=== PATIENT | male | born 1950 | race Caucasian/White ===

== ENCOUNTER → 2020-03-06 11:39 | Outpatient (BNVA) | payer MEDICARE, SELFPAY | PROVIDERS: PCP Nurse Practitioner Family; Referring Provider Nurse Practitioner Family; Visit Provider Internal Medicine | DX: E83.52 Hypercalcemia (principal); E03.9 Hypothyroidism, unspecified; I25.10 Atherosclerotic heart disease of native coronary artery without angina pectoris; I10 Essential (primary) hypertension; I48.0 Paroxysmal atrial fibrillation; I25.5 Ischemic cardiomyopathy; R91.1 Solitary pulmonary nodule; Z88.0 Allergy status to penicillin; Z79.899 Other long term (current) drug therapy | CPT/HCPCS: 99212 ==

== ENCOUNTER → 2020-03-14 08:50 | Outpatient (BNVA) | payer MEDICARE, SELFPAY | PROVIDERS: PCP Nurse Practitioner Family; Referring Provider Nurse Practitioner Family; Visit Provider Nurse Practitioner Family | DX: G47.33 Obstructive sleep apnea (adult) (pediatric) (principal); Z99.89 Dependence on other enabling machines and devices | CPT/HCPCS: 99212 ==

== ENCOUNTER 2020-04-13 13:30 | Outpatient (RCR) | payer MEDICARE, SELFPAY | END 2020-06-20 07:47 | disposition home or self-care (01) | LOC: HO.OT 13:30 | PROVIDERS: PCP Nurse Practitioner Family; Visit Provider Nurse Practitioner Family | DX: G56.02 Carpal tunnel syndrome, left upper limb (principal) | CPT/HCPCS: 29125; 97033; 97035; 97110; 97140; 97165; 97760 ==

== ENCOUNTER → 2020-05-08 08:46 | Outpatient (BNVA) | payer MEDICARE, SELFPAY | PROVIDERS: PCP Nurse Practitioner Family; Referring Provider Nurse Practitioner Family; Visit Provider Internal Medicine | DX: Z13.89 Encounter for screening for other disorder (principal) | CPT/HCPCS: Q3014 ==

== ENCOUNTER 2020-05-09 14:11 | Outpatient (REF) | payer MEDICARE, SELFPAY ==
[2020-05-09 16:45] LABS: Albumin Level 4.4 g/dL (3.5-5.0); Calcium 9.7 mg/dL (8.4-10.2)
[2020-05-09 17:15] LABS: Free T4 (Free Thyroxine) 1.12 ng/dL (0.71-1.85); Thyroid Stimulating Hormone 0.98 uIU/mL (0.32-4.0); Vitamin D 25-OH Total 27.4 ng/mL (>30)
[2020-05-10 17:28] LABS: PTHI 58 pg/mL (14-64)
== END 2020-05-09 14:12 | disposition home or self-care (01) ==
LOC: HO.HMGCLDS 14:11
PROVIDERS: PCP Nurse Practitioner Family; Visit Provider Internal Medicine
DX: E83.52 Hypercalcemia (principal); E03.9 Hypothyroidism, unspecified; E55.9 Vitamin D deficiency, unspecified
CPT/HCPCS: 36415; 82040; 82306; 82310; 83970; 84439; 84443

== ENCOUNTER → 2020-06-20 10:27 | Outpatient (BNVA) | payer MEDICARE, SELFPAY | PROVIDERS: PCP Nurse Practitioner Family; Visit Provider Nurse Practitioner Family | DX: Z13.89 Encounter for screening for other disorder (principal) | CPT/HCPCS: Q3014 ==

== ENCOUNTER → 2020-06-21 09:06 | Outpatient (BNVA) | payer MEDICARE, SELFPAY | PROVIDERS: PCP Nurse Practitioner Family; Visit Provider Internal Medicine | DX: Z76.89 Persons encountering health services in other specified circumstances (principal) | CPT/HCPCS: Q3014 ==

== ENCOUNTER 2020-08-15 16:06 | Outpatient (REF) | payer MEDICARE, SELFPAY ==
--- NOTE | ~2020-08-15 | US_ITS ---
EXAMINATION: US VENOUS ULTRASOUND WITH DOPPLER LOWER EXTREMITY, RIGHT CLINICAL INFORMATION: Pain. COMPARISON: None TECHNIQUE: Ultrasound of the deep veins is performed from the hip to the calf with compression sonography and color and pulse Doppler assessment. Spectral analysis with color-flow imaging is performed. FINDINGS: There is normal venous compression and respiratory variation and augmented flow. The visualized common femoral vein, superficial femoral vein, profunda femoral vein, popliteal vein, and the trifurcation region shows no evidence of deep venous thrombosis. There is no significant popliteal fossa cyst. If the patient's symptoms persist, followup ultrasound in 5 days 7 days might be of value to exclude proximal propagation from a non-visualized calf vein. US/US venous duplex LE RT IMPRESSION: No DVT demonstrated in the right lower extremity.
== END 2020-08-15 16:07 | disposition home or self-care (01) ==
LOC: HO.US 16:06
PROVIDERS: PCP Nurse Practitioner Family; Visit Provider Nurse Practitioner Family
DX: M79.661 Pain in right lower leg (principal)
CPT/HCPCS: 93971

== ENCOUNTER → 2020-09-18 09:27 | Outpatient (BNVA) | payer MEDICARE, SELFPAY | PROVIDERS: PCP Nurse Practitioner Family; Visit Provider Internal Medicine | DX: Z13.89 Encounter for screening for other disorder (principal) | CPT/HCPCS: Q3014 ==

== ENCOUNTER → 2020-09-19 09:46 | Outpatient (BNVA) | payer MEDICARE, SELFPAY | PROVIDERS: PCP Nurse Practitioner Family; Visit Provider Nurse Practitioner Family | CPT/HCPCS: Q3014 ==

== ENCOUNTER 2020-09-23 10:26 | Outpatient (REF) | payer MEDICARE, SELFPAY ==
[2020-09-23 12:11] LABS: Free T4 (Free Thyroxine) 1.15 ng/dL (0.71-1.85); Thyroid Stimulating Hormone 0.37 uIU/mL (0.32-4.0); Vitamin D 25-OH Total 28.3 ng/mL (>30)
== END 2020-09-23 10:27 | disposition home or self-care (01) ==
LOC: HO.HMGCLDS 10:26
PROVIDERS: PCP Nurse Practitioner Family; Visit Provider Internal Medicine
DX: E03.9 Hypothyroidism, unspecified (principal); E55.9 Vitamin D deficiency, unspecified
CPT/HCPCS: 36415; 82306; 84439; 84443

== ENCOUNTER → 2020-11-15 08:03 | Outpatient (BNVA) | payer MEDICARE, SELFPAY | PROVIDERS: PCP Nurse Practitioner Family; Visit Provider Internal Medicine | CPT/HCPCS: Q3014 ==

== ENCOUNTER 2020-11-22 14:06 | Outpatient (REF) | payer MEDICARE, SELFPAY ==
[2020-11-22 16:41] LABS: Alanine Aminotransferase 21 U/L (0-40); Albumin Level 4.4 g/dL (3.5-5.0); Alkaline Phosphatase 95 U/L (39-117); Anion Gap 12 (12-20); Aspartate Amino Transferase 17 U/L (5-37); Bilirubin Total 0.8 mg/dL (0.0-1.0); Blood Urea Nitrogen 15 mg/dL (9-16); Calcium 9.5 mg/dL (8.4-10.2); Carbon Dioxide 23 mmol/L (22-29); Chloride 109 mmol/L (96-108); Estimated Glomerular Filt Rate > 60; Glucose Random 89 mg/dL (60-115); Potassium 4.1 mmol/L (3.3-5.1); Sodium 140 mmol/L (135-145)
[2020-11-22 17:01] LABS: Free T4 (Free Thyroxine) 1.04 ng/dL (0.71-1.85); Thyroid Stimulating Hormone 2.59 uIU/mL (0.32-4.0)
[2020-11-22 17:02] LABS: TSH reflex Free T4 2.55 uIU/mL (0.32-4.0)
[2020-11-22 17:33] LABS: Prostate Specific Antigen Scr 0.84 ng/mL (<0.05-4.0)
== END 2020-11-22 14:07 | disposition home or self-care (01) ==
LOC: HO.HMGCLDS 14:06
PROVIDERS: Internal Medicine; PCP Nurse Practitioner Family; Visit Provider Nurse Practitioner Family
DX: Z12.5 Encounter for screening for malignant neoplasm of prostate (principal); E03.9 Hypothyroidism, unspecified; E78.00 Pure hypercholesterolemia, unspecified; I10 Essential (primary) hypertension
CPT/HCPCS: 36415; 80053; 84153; 84439; 84443

== ENCOUNTER → 2020-12-12 09:55 | Outpatient (BNVA) | payer MEDICARE, SELFPAY | PROVIDERS: PCP Nurse Practitioner Family; Visit Provider Nurse Practitioner Family | CPT/HCPCS: Q3014 ==

== ENCOUNTER 2020-12-14 13:47 | Outpatient (REF) | payer MEDICARE, SELFPAY ==
--- NOTE | ~2020-12-14 | MM_ITS ---
EXAMINATION: BONE DENSITOMETRY CLINICAL INDICATION: Hyperparathyroidism. COMPARISON: This is the patient's baseline examination. TECHNIQUE: Using a Neb[employer] DXA System (software version: 13.1) manufactured by [employer], dual-energy x-ray absorptiometry was performed of the lumbar spine, left hip, and left forearm radius 33%. The images are of good technical quality. Summary results are attached. FINDINGS: AP SPINE L1-L4: BMD 1.225 g/cm2, Z-score -0.1, T-score 0.0, normal. LEFT FEMUR, NECK: BMD 0.757 g/cm2, Z-score -1.6, T-score -2.4, osteopenia. LEFT FEMUR, TOTAL: BMD 0.842 g/cm2, Z-score -1.5, T-score -1.8, osteopenia. LEFT FOREARM RADIUS 33%: BMD 0.810 g/cm2, Z-score -0.9, T-score -1.8, osteopenia. IDENTIFIED RISK FACTORS: Hyperparathyroid. HISTORY OF FRACTURE: None listed. MEDICATIONS: Calcium, vitamin D. MM/XR DEXA appendicular skeleton IMPRESSION: 1. DIAGNOSIS: Osteopenia based on the lowest T-score value of -2.4 in the femoral neck applying World Health Organization criteria. 2. 10-YEAR FRACTURE RISK PREDICTION, FRAX: Major osteoporotic fracture (clinical spine, forearm, hip or shoulder) 8.6%. Hip fracture 2.9%. 3. Treatment Recommendations: NOF guidelines recommend consideration for treatment in postmenopausal women and men age 50 and older presenting with the following: -A hip or vertebral (clinical or morphometric) fracture. -T-score less than or equal to -2.5 at the femoral neck or spine after appropriate evaluation to exclude secondary causes. -Low bone mass at the hip or spine and a 10-year fracture probability by FRAX of greater than or equal to 3% for hip fracture or greater than or equal to 20% for major osteoporotic fracture based on the [place] adapted WHO algorithm. 4. Other Recommendations: All treatment decisions require clinical judgment and consideration of individual patient factors, including patient preferences, comorbidities, previous drug use, risk factors not captured in the FRAX model (e.g. frailty, falls, vitamin D deficiency, increased bone turnover, interval significant decline in bone density) and possible under or overestimation of fracture risk by FRAX. Additional medical evaluation for secondary cause of low bone mineral density may be appropriate. FUTURE SCAN RECOMMENDATION: People with diagnosed cases of osteoporosis or at high risk for fracture should have regular bone mineral density tests. For patients eligible for Medicare, routine testing is allowed once every 2 years. The testing frequency can be increased to one year for patients who have rapidly progressing disease, those who are receiving or discontinuing medical therapy to restore bone mass, or have additional risk factors.
== END 2020-12-14 13:48 | disposition home or self-care (01) ==
LOC: HO.MAMMO 13:47
PROVIDERS: Visit Provider Internal Medicine
DX: Z13.820 Encounter for screening for osteoporosis (principal); E21.3 Hyperparathyroidism, unspecified
CPT/HCPCS: 77081

== ENCOUNTER 2020-12-26 13:54 | Outpatient (REF) | payer MEDICARE, SELFPAY ==
--- NOTE | ~2020-12-26 | US_ITS ---
EXAMINATION: US THYROID CLINICAL INFORMATION: Hyperparathyroidism, unspecified. COMPARISON: None TECHNIQUE: Linear transducer grayscale and color Doppler examination with attention to the region of the thyroid. FINDINGS: SIZE: Measurements of the thyroid lobes and nodules are given in sagittal, anteroposterior and transverse dimensions respectively. The thyroid gland is difficult to visualize. Right Thyroid Lobe: 3.8 x 1.0 x 1.1 cm, volume 2.2 mL. Parenchyma: The gland echotexture is homogeneous. Thyroid vascularity is normal. Left Thyroid Lobe: 3.3 x 0.9 x 1.0 cm, volume 1.6 mL. Parenchyma: The gland echotexture is homogeneous. Thyroid vascularity is normal. Isthmus: 0.2 cm in maximum AP dimension. No focal thyroid nodule is seen. NODES: No lymphadenopathy is seen in the tissue surrounding the thyroid gland. US/US thyroid IMPRESSION: The thyroid gland is difficult to visualize. No focal lesion seen. ACR TI-RADS RECOMMENDATION REFERENCE: Ultrasound-guided fine-needle aspiration, followup ultrasound, no further follow up. * TR1 (0 point) and TR 2 (2 points): No FNA or follow up * TR3 (3 points): FNA if more than or equal to 2.5 cm in maximum dimension, followup ultrasound in 1, 3 and 5 years if 1.5 to 2.4 cm in maximum dimension. * TR4 (4-6 points): FNA if more than or equal to 1.5 cm in maximum dimension, followup ultrasound in 1, 2, 3 and 5 years if 1 to 1.4 cm in maximum dimension. * TR5 (more than or equal to 7 points): FNA if more than or equal to 1 cm in maximum dimension, followup ultrasound every year for 5 years if 0.5 to 0.9 cm in maximum dimension. * TR3, TR4 or TR5 nodules that are below the size threshold for follow up receive no follow up.
== END 2020-12-26 13:55 | disposition home or self-care (01) ==
LOC: HO.HMGCX 13:54
PROVIDERS: PCP Nurse Practitioner Family; Visit Provider Internal Medicine
DX: E21.3 Hyperparathyroidism, unspecified (principal)
CPT/HCPCS: 76536

== ENCOUNTER 2021-03-12 08:49 | Outpatient (REF) | payer MEDICARE, SELFPAY ==
--- NOTE | ~2021-03-12 | XR_ITS ---
EXAMINATION: XR KNEE-RIGHT XR KNEE-LEFT CLINICAL INFORMATION: Pain in unspecified knee. COMPARISON: Right knee done on 06/16/2017. TECHNIQUE: Upright frontal view of both knees and lateral and patellofemoral views of the right knee were obtained. FINDINGS: Left knee: The single frontal upright view shows minimal decrease joint space and minimal subchondral sclerosis, consistent with mild lateral and medial compartmental osteoarthrosis. Right knee: Decreased joint space, subchondral sclerosis, mild osteophyte formations, consistent with mild to moderate medial compartmental and mild lateral compartmental and mild patellofemoral compartmental osteoarthrosis is seen. When compared to prior study dated 06/16/2017, mild interval disease progression is noted. XR/XR knee standing BI IMPRESSION: 1. Single frontal upright view of the left knee shows features consistent with mild both medial and lateral compartmental osteoarthrosis. 2. Multiple views of the right knee shows [id number] medial compartmental and mild lateral and patellofemoral compartmental osteoarthrosis, shows mild interval disease progression since 06/16/2017.
--- NOTE | ~2021-03-12 | XR_ITS ---
EXAMINATION: XR KNEE-RIGHT XR KNEE-LEFT CLINICAL INFORMATION: Pain in unspecified knee. COMPARISON: Right knee done on 06/16/2017. TECHNIQUE: Upright frontal view of both knees and lateral and patellofemoral views of the right knee were obtained. FINDINGS: Left knee: The single frontal upright view shows minimal decrease joint space and minimal subchondral sclerosis, consistent with mild lateral and medial compartmental osteoarthrosis. Right knee: Decreased joint space, subchondral sclerosis, mild osteophyte formations, consistent with mild to moderate medial compartmental and mild lateral compartmental and mild patellofemoral compartmental osteoarthrosis is seen. When compared to prior study dated 06/16/2017, mild interval disease progression is noted. XR/XR knee RT 2V IMPRESSION: 1. Single frontal upright view of the left knee shows features consistent with mild both medial and lateral compartmental osteoarthrosis. 2. Multiple views of the right knee shows [id number] medial compartmental and mild lateral and patellofemoral compartmental osteoarthrosis, shows mild interval disease progression since 06/16/2017.
== END 2021-03-12 08:50 | disposition home or self-care (01) ==
LOC: HO.HOSX 08:49
PROVIDERS: Visit Provider Orthopaedic Surgery
DX: M17.11 Unilateral primary osteoarthritis, right knee (principal)
CPT/HCPCS: 73560; 73565; 99202

== ENCOUNTER 2021-05-29 11:16 | Outpatient (REF) | payer MEDICARE, SELFPAY ==
[2021-05-29 13:49] LABS: MANUAL DIFF FLAG NO
[2021-05-29 13:55] LABS: Basophils Absolute Auto 0.1 X10*3/uL (0.0-0.2); Basophils Percent Auto 0.9 % (0-2); Eosinophils Absolute Auto 0.3 X10*3/uL (0.0-0.4); Eosinophils Percent Auto 2.8 % (0-4); Hemoglobin 13.3 g/dl (14.0-18.0); Imm Gran Abs Auto 0.05 X10*3/uL (0.00-0.03); Imm Gran Pct Auto 0.5 % (0.0-0.4); Lymphocytes Absolute Auto 1.5 X10*3/uL (1.2-4.9); Lymphocytes Percent Auto 14.5 % (20-40); Mean Corpuscular HGB Conc 31.7 g/dl (31.0-36.0); Mean Corpuscular Hemoglobin 29.6 pg (27.0-33.0); Mean Corpuscular Volume 93.5 fL (80.0-98.0); Mean Platelet Volume 10.1 fL (9.4-12.4); Monocytes Absolute Auto 0.8 X10*3/uL (0.1-1.2); Monocytes Percent Auto 7.3 % (2-11); Neutrophils Absolute Auto 7.8 x10*3/uL (2.0-8.3); Platelet Count 390 X10*3/uL (160-400); Red Blood Count 4.49 X10*6/uL (4.60-5.80); Red Cell Distribution Width 14.9 % (11.0-16.0); White Blood Count 10.5 X10*3/uL (4.8-10.8)
[2021-05-29 14:15] LABS: Alanine Aminotransferase 19 U/L (0-40); Albumin Level 3.7 g/dL (3.5-5.0); Alkaline Phosphatase 88 U/L (39-117); Anion Gap 12 (12-20); Aspartate Amino Transferase 22 U/L (5-37); Bilirubin Total 0.5 mg/dL (0.0-1.0); Blood Urea Nitrogen 10 mg/dL (9-16); Calcium 9.4 mg/dL (8.4-10.2); Carbon Dioxide 28 mmol/L (22-29); Chloride 106 mmol/L (96-108); Estimated Glomerular Filt Rate > 60; Glucose Fasting 93 mg/dL (60-99); Magnesium 2.2 mg/dL (1.6-2.6); Phosphorus 3.8 mg/dL (2.7-4.5); Potassium 4.8 mmol/L (3.3-5.1); Sodium 141 mmol/L (135-145); Total Protein 6.3 g/dL (6.5-8.0)
[2021-05-29 14:26] LABS: Thyroid Stimulating Hormone 21.86 uIU/mL (0.32-4.0)
[2021-05-29 14:31] LABS: Vitamin D 25-OH Total 31.2 ng/mL (>30)
[2021-05-30 12:27] LABS: Calcium (PTHI) 8.9 mg/dL (8.6-10.3); PTHI 83 pg/mL (14-64)
== END 2021-05-29 11:17 | disposition home or self-care (01) ==
LOC: HO.HMGCLDS 11:16
PROVIDERS: Internal Medicine; PCP Nurse Practitioner Family; Visit Provider Nurse Practitioner Family
DX: I46.9 Cardiac arrest, cause unspecified (principal); U07.1 COVID-19; I47.2 Ventricular tachycardia; E03.9 Hypothyroidism, unspecified; E21.3 Hyperparathyroidism, unspecified; E55.9 Vitamin D deficiency, unspecified
CPT/HCPCS: 36415; 80053; 82306; 83735; 83970; 84100; 84439; 84443; 85025

== ENCOUNTER → 2021-06-13 08:45 | Outpatient (BNVA) | payer MEDICARE, SELFPAY | PROVIDERS: PCP Nurse Practitioner Family; Visit Provider Internal Medicine | DX: Z13.89 Encounter for screening for other disorder (principal) | CPT/HCPCS: Q3014 ==

== ENCOUNTER → 2021-06-20 11:02 | Outpatient (BNVA) | payer MEDICARE, SELFPAY | PROVIDERS: PCP Nurse Practitioner Family; Visit Provider Orthopaedic Surgery | DX: Z13.89 Encounter for screening for other disorder (principal) ==

== ENCOUNTER 2021-07-05 10:27 | Outpatient (REF) | payer MEDICARE, SELFPAY ==
[2021-07-05 13:42] LABS: MANUAL DIFF FLAG NO
[2021-07-05 13:45] LABS: Basophils Absolute Auto 0.1 X10*3/uL (0.0-0.2); Basophils Percent Auto 0.9 % (0-2); Eosinophils Absolute Auto 0.3 X10*3/uL (0.0-0.4); Eosinophils Percent Auto 3.7 % (0-4); Hematocrit 52.7 % (42.0-52.0); Imm Gran Abs Auto 0.01 X10*3/uL (0.00-0.03); Imm Gran Pct Auto 0.1 % (0.0-0.4); Lymphocytes Absolute Auto 1.7 X10*3/uL (1.2-4.9); Lymphocytes Percent Auto 24.3 % (20-40); Mean Corpuscular HGB Conc 32.3 g/dl (31.0-36.0); Mean Corpuscular Hemoglobin 29.6 pg (27.0-33.0); Mean Corpuscular Volume 91.8 fL (80.0-98.0); Monocytes Absolute Auto 0.5 X10*3/uL (0.1-1.2); Monocytes Percent Auto 7.6 % (2-11); Neutrophils Absolute Auto 4.3 x10*3/uL (2.0-8.3); Neutrophils Percent Auto 63.4 % (45-73); Platelet Count 247 X10*3/uL (160-400); Red Blood Count 5.74 X10*6/uL (4.60-5.80); Red Cell Distribution Width 15.5 % (11.0-16.0); White Blood Count 6.8 X10*3/uL (4.8-10.8)
[2021-07-05 14:04] LABS: Alanine Aminotransferase 31 U/L (0-40); Albumin Level 4.8 g/dL (3.5-5.0); Alkaline Phosphatase 133 U/L (39-117); Anion Gap 12 (12-20); Aspartate Amino Transferase 24 U/L (5-37); Bilirubin Total 1.1 mg/dL (0.0-1.0); Blood Urea Nitrogen 13 mg/dL (9-16); Calcium 10.5 mg/dL (8.4-10.2); Carbon Dioxide 28 mmol/L (22-29); Chloride 104 mmol/L (96-108); Estimated Glomerular Filt Rate > 60; Glucose Random 114 mg/dL (60-115); Phosphorus 3.6 mg/dL (2.7-4.5); Potassium 4.4 mmol/L (3.3-5.1); Sodium 140 mmol/L (135-145); Total Protein 7.7 g/dL (6.5-8.0)
[2021-07-05 14:20] LABS: Free T4 (Free Thyroxine) 0.96 ng/dL (0.71-1.85); Prostate Specific Antigen 0.57 ng/mL (<0.05-4.0)
[2021-07-05 14:21] LABS: Thyroid Stimulating Hormone 15.87 uIU/mL (0.32-4.0)
[2021-07-06 05:56] LABS: Sex Hormone Binding Globulin 49 nmol/L (22-77)
[2021-07-06 09:02] LABS: Prolactin 12.1 ng/mL (2.0-18.0)
[2021-07-09 14:36] LABS: Prot Elec - Albumin 4.8 g/dL (3.8-4.8); Prot Elec - Alpha1 0.3 g/dL (0.2-0.3); Prot Elec - Alpha2 1.2 g/dL (0.5-0.9); Prot Elec - Beta 1 0.5 g/dL (0.4-0.6); Prot Elec - Beta 2 0.4 g/dL (0.2-0.5); Prot Elec - Gamma 0.9 g/dL (0.8-1.7)
[2021-07-10 14:41] LABS: Alkaline Phosphatase Bone 29.9 mcg/L (see note); Calcium (PTHI) 10.5 mg/dL (8.6-10.3); PTHI 112 pg/mL (14-64); Testosterone, Free 35.6 pg/mL (30.0-135.0); Testosterone, Total 363 ng/dL (250-1100)
== END 2021-07-05 10:28 | disposition home or self-care (01) ==
LOC: HO.HMGCLDS 10:27
PROVIDERS: Absent Provider Internal Medicine; PCP Nurse Practitioner Family; Visit Provider Orthopaedic Surgery
DX: Z01.812 Encounter for preprocedural laboratory examination (principal); Z12.5 Encounter for screening for malignant neoplasm of prostate; E21.3 Hyperparathyroidism, unspecified; E03.9 Hypothyroidism, unspecified; M85.80 Other specified disorders of bone density and structure, unspecified site
CPT/HCPCS: 36415; 80053; 83970; 84075; 84100; 84146; 84153; 84165; 84270; 84402; 84403; 84439; 84443; 85025

== ENCOUNTER 2021-07-10 11:31 | Outpatient (REF) | payer MEDICARE, SELFPAY ==
[2021-07-10 14:12] LABS: Total Volume 24 Hour Urine 1825 mL
[2021-07-10 14:40] LABS: Creatinine, mg/dL 53.59
[2021-07-11 22:43] LABS: Calcium, 24 Hr Urine 68 mg/24 h; Calcium/Creatinine Ratio 67 mg/g creat (30-210)
[2021-07-14 11:45] LABS: N-Telopeptide 46 (see note); NTXCreaRU 42 mg/dL (20-320)
== END 2021-07-10 11:32 | disposition home or self-care (01) ==
LOC: HO.HMGCLNP 11:31
PROVIDERS: Internal Medicine; PCP Nurse Practitioner Family; Visit Provider Nurse Practitioner Family
DX: E21.3 Hyperparathyroidism, unspecified (principal)
CPT/HCPCS: 82340; 82523; 82570

== ENCOUNTER → 2021-07-16 11:12 | Outpatient (BNVA) | payer MEDICARE, SELFPAY | PROVIDERS: PCP Nurse Practitioner Family; Visit Provider Physician Assistant | DX: Z01.818 Encounter for other preprocedural examination (principal); M17.11 Unilateral primary osteoarthritis, right knee | CPT/HCPCS: 99212 ==

== ENCOUNTER 2021-07-19 10:00 | Outpatient (RCR) | payer MEDICARE, SELFPAY ==
--- NOTE | 2021-07-13 12:47 | MHC.PT.EP ---
[facility] [place] Office [place] Office [place] Office [address] Mavis Shipman [address] [phone] F: [phone] F: [phone] F: [phone] F: [phone] Physical Therapy Plan of Care Date of Evaluation: Date of Surgery: Diagnosis: This is a 71 yo male presenting to skilled PT with a script for prehab for R TKA 07/24/21 Assessment: Patient comes to PT reporting that he would like to exercise prior to surgery. He has been through his pre-op appointments and is looking for education on process. He has failed conservative methods, states that he had PT prior to scheduling this surgery. The patient reports pain is constant, located anteriorly throughout patella area. Pain is with all motions and does not improve with rest. 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 He lives with his in a ranch style home with 3 [address]IL[address] and single rail on the R when entering. He has grab bars in his bathroom and is is able to help him as needed s/p surgery. He has a walker and cane at home. Assessment reveals pain that ranges up to a 6/10 and is constant in nature. He demos decreased ROM, decreased strength, impaired gait pattern and joint mobility that is expected prior to TKA. He is a good candidate for skilled PT 2x/wk for 1wks. Frequency and Duration: The patient will be seen 2x/wk for 1wk Short Term Goals: Group Home Goals: I in HEP Understand transfers Understand negotiation of stairs Treatment Plan: Modalities to reduce pain, spasms and effusion. Manual therapy to restore motion and function. Therapeutic exercise to improve strength and flexibility. Neuromuscular re-education for posture and balance. Therapeutic activities to return to functional activities of daily living. Electronically signed by: Geno Colorado Please sign and return to therapist. Thank you for your referral.
--- NOTE | 2021-07-19 12:23 | MHC.PT.DC ---
[facility] [place] Office [place] Office [place] Office [address] Mavis Shipman [address] [phone] F: [phone] F: [phone] F: [phone] F: [phone] Physical Therapy Discharge Report Diagnosis: This is a 71 yo male presenting to skilled PT with a script for prehab for R TKA 07/24/21 Date of Surgery: Date of Evaluation: 07/13/21 Date of Discharge: 07/19/21 Treatments to Date: 2 Cancellations to Date: 0 No Shows to Date: 0 Discharge Status: Achieved Goals Independent with HEP Patient Elected to Stop Discharge Summary: 07/19: Patient missed the last appointment as he was not feeling well. His surgery is planned for 07/24 so we really only had time to review his HEP, re-educate on transfers, ambulation with walker and stairs. DC to HEP and will re-eval when he returns s/p surgery. Electronically signed by: Geno Colorado, PT Please sign and return to therapist. Thank you for your referral.
== END 2021-07-19 12:24 | disposition home or self-care (01) ==
LOC: HO.PTCHIC 10:00
PROVIDERS: PCP Nurse Practitioner Family; Visit Provider Nurse Practitioner Family
DX: M17.11 Unilateral primary osteoarthritis, right knee (principal)
CPT/HCPCS: 97110; 97161; 97530

== ENCOUNTER 2021-07-24 05:56 | Day surgery (SDC) | payer MEDICARE, SELFPAY ==
[2021-07-12 12:19] VITALS: BP 97/67; PULSE 84; RESP 16; O2SAT 96; BMI 31.0
[2021-07-12 14:49] LABS: MRSA Nasal PCR POSITIVE (Negative); SA Nasal PCR POSITIVE (Negative)
--- NOTE | 2021-07-20 14:24 | HO.ANESPROP2 ---
Documented by User: Melva Dash NP 07/20/21 14:42 HPI - Anesthesia Eval Consult details Narrative: 71yo M for Right Knee Replacement Total PCP cleared Cardiac cleared Pt with cardiac arrest in setting of COVID 05/2021. ICD (for ischemic CMP) in situ required generator change 05/[address] Lemus in PAT clinic Plavix and Eliquis PMFSH Active Problems Active Problems: All Active Problems (Updated 07/12/21 @ 15:32 by Abimbola Pink, RN) Severe obstructive sleep apnea (Acute) High cholesterol (Acute) GERD (gastroesophageal reflux disease) (Acute) Shoulder pain (Acute) Calf pain (Acute) Screening PSA (prostate specific antigen) (Acute) Arthritis of right knee (Acute) Torsades de pointes (Acute) Cardiac arrest (Acute) COVID-19 (Acute) Pre-op evaluation (Acute) Osteopenia (Acute) Hyperparathyroidism (Acute) Hypothyroidism (Acute) Familial hypocalciuric hypercalcemia (Acute) Vitamin D deficiency (Acute) HTN (hypertension) (Acute) Carpal tunnel syndrome of left wrist (Acute) Past Medical History Medical History (Updated 07/12/21 @ 15:32 by Abimbola Pink RN) CAD (coronary artery disease) Carpal tunnel syndrome of left wrist Depression Familial hypocalciuric hypercalcemia History of blood transfusion HTN (hypertension) Hyperparathyroidism Hypothyroidism Ischemic cardiomyopathy Left carpal tunnel syndrome FÉLIX (obstructive sleep apnea) Osteopenia Paroxysmal atrial fibrillation PTSD (post-traumatic stress disorder) Pulmonary nodule Vitamin D deficiency Family History Family History Father CAD (coronary artery disease) Mother CVA (cerebral vascular accident) Surgical History Surgical History (Updated 07/12/21 @ 15:41 by Abimbola iPnk RN) AICD (automatic cardioverter/defibrillator) present History of AAA (abdominal aortic aneurysm) repair Hx of appendectomy Hx of colonoscopy Hx of discectomy Hx of tonsillectomy S/P CABG x 6 Social History Social History (Updated 07/12/21 @ 15:43 by Abimbola Pink, LOAN) Are you a primary healthcare consultant to a significant other at home: No Do you presently have visiting nurse or other home services: No Alcohol intake: never Patient Tobacco Use Status: Former Tobacco user Quit Date: Tobacco use type: Cigarette Use of substances other than those prescribed or required for medical reasons: No Have you been hit, kicked, punched, or otherwise hurt by someone within the past year? If so, by whom?: No Are you DNR?: No Advance Directives: No Advance Directives Information Provided: Yes Advance Directives on File: No Recently lost weight without trying: No Nutrition Risks: No Nutritional Risk Poor oral hygiene: No Current occupational status: retired Meds Allergies Allergy/AdvReac Type Severity Reaction Status Date / Time Penicillins [PENICILLINS] Allergy Intermediate ITCHY RASH Verified 07/16/21 11:18 Home Medications Medication Instructions Recorded Confirmed Last Taken Type clopidogrel 75 mg tablet 75 mg PO DAILY 02/07/20 07/16/21 07/20/21 History amiodarone 200 mg tablet 200 mg PO DAILY 05/29/21 07/16/21 Unknown History ascorbate calcium (vitamin C) 500 500 mg PO DAILY 07/04/21 07/16/21 Unknown History mg tablet ezetimibe 10 mg tablet 10 mg PO BEDTIME 07/12/21 07/16/21 Unknown History sacubitril 97 mg-valsartan 103 mg 1 tab PO BID 07/12/21 07/16/21 07/24/21 History tablet (Entresto) spironolactone 25 mg tablet 12.5 mg PO DAILY 07/12/21 07/16/21 Unknown History trazodone 50 mg tablet 50 mg PO BEDTIME PRN 07/12/21 07/16/21 Unknown History vit C 250 mg-vit E 90 mg-zinc 40 1 tab PO BID 07/12/21 07/16/21 Unknown History mg-copper 1 [id number] capsule (PreserVision AREDS-2) sacubitril 97 mg-valsartan 103 mg 1 tab PO BID 07/24/21 07/24/21 Unknown History tablet (Entresto) Exam Exam Date and Time: July 20, 2021 1424 Height,Weight and Vital Signs: Height 6 ft Weight 103.9 kg Last Vital Signs Pulse 84 07/12/21 12:19 Resp 16 07/12/21 12:19 BP 97/67 07/12/21 12:19 Pulse Ox 96 07/12/21 12:19 Pertinent Lab Results Pertinent Lab Results: Laboratory Tests 07/12/21 07/12/21 12:30 13:10 Nasal Screen MRSA (PCR) POSITIVE A Nasal S. aureus Screen POSITIVE A Nasal MRSA/S.aureus Interp SEE NOTE Blood Type O Positive Antibody Screen NEGATIVE Laboratory Tests 07/05/21 07/05/21 10:39 10:39 WBC 6.8 Hgb 17.0 D Hct 52.7 H D Plt Count 247 D Sodium 140 Potassium 4.4 Chloride 104 Carbon Dioxide 28 BUN 13 Creatinine 1.00 Narrative Narrative: EKG 06/2021 SB @ 57, RBBB ECHO 05/2021 LV is normal in size. LV wall thickness is mildly increased. LV systolic function severely reduced - LVEF 25-30%. Basal to mid inferolateral anterolateral wall is akinetic. Basal inferior wall is dyskinetic. No doppler evidence of increased filling pressures. RV is normal in size. RV mildly reduced. Pacer/ICD wire seen in RV c/w 2017, global LV function is mildly decreased Cardiac Cath 05/2021 Likely unchanged anatomy c/w 2016 Pt known to have occluded left main and proximal RCA SV3 to RCA and SVG to OM are known to be occluded HARTLEY to LAD is patent. HARTLEY is tortuous and there is diffuse LAD disease Branch of proximal RCA is collateralizing to distal LCx Aggressive secondary risk factor modification Continue medical therapy for CAD EP consult ICD testing from generator change 05/2021 on chart. Assessment and Plan Assessment Anesthesia Assessment: Chart Reviewed Documented by User: Lars Khalil MD 07/24/21 08:55 HPI - Anesthesia Eval Consult details Narrative: 71yo M for Right Knee Replacement Total PCP cleared Cardiac cleared Pt with cardiac arrest in setting of COVID 05/2021. Hypokalemic VT/VF/torsades. ICD (for ischemic CMP) in situ required generator change 05/2021. 6V CABG at age 43. Last nitro use for stable angina 2.5 years ago. EF 25%, no valve lesions. Pt seen by Dr Lemus in PAT clinic Plavix last dose 5 days and Eliquis 3 days ago [facility] Past Medical History Medical History (Updated 07/12/21 @ 15:32 by Abimbola Pink RN) CAD (coronary artery disease) Carpal tunnel syndrome of left wrist Depression Familial hypocalciuric hypercalcemia History of blood transfusion HTN (hypertension) Hyperparathyroidism Hypothyroidism Ischemic cardiomyopathy Left carpal tunnel syndrome FÉLIX (obstructive sleep apnea) Osteopenia Paroxysmal atrial fibrillation PTSD (post-traumatic stress disorder) Pulmonary nodule Vitamin D deficiency Family History Family History Father CAD (coronary artery disease) Mother CVA (cerebral vascular accident) Family history of problems with anesthesia: No Surgical History Surgical History (Updated 07/12/21 @ 15:41 by Abimbola Pink RN) AICD (automatic cardioverter/defibrillator) present History of AAA (abdominal aortic aneurysm) repair Hx of appendectomy Hx of colonoscopy Hx of discectomy Hx of tonsillectomy S/P CABG x 6 History of Problems with Anesthesia: No Social History Social History (Updated 07/12/21 @ 15:43 by Abimbola Pink RN) Are you a primary healthcare consultant to a significant other at home: No Do you presently have visiting nurse or other home services: No Alcohol intake: never Patient Tobacco Use Status: Former Tobacco user Quit Date: Tobacco use type: Cigarette Use of substances other than those prescribed or required for medical reasons: No Have you been hit, kicked, punched, or otherwise hurt by someone within the past year? If so, by whom?: No Are you DNR?: No Advance Directives: No Advance Directives Information Provided: Yes Advance Directives on File: No Recently lost weight without trying: No Nutrition Risks: No Nutritional Risk Poor oral hygiene: No Current occupational status: retired Meds Allergies Allergy/AdvReac Type Severity Reaction Status Date / Time Penicillins [PENICILLINS] Allergy Intermediate ITCHY RASH Verified 07/16/21 11:18 Home Medications Medication Instructions Recorded Confirmed Last Taken Type clopidogrel 75 mg tablet 75 mg PO DAILY 02/07/20 07/16/21 07/20/21 History amiodarone 200 mg tablet 200 mg PO DAILY 05/29/21 07/16/21 Unknown History ascorbate calcium (vitamin C) 500 500 mg PO DAILY 07/04/21 07/16/21 Unknown History mg tablet ezetimibe 10 mg tablet 10 mg PO BEDTIME 07/12/21 07/16/21 Unknown History sacubitril 97 mg-valsartan 103 mg 1 tab PO BID 07/12/21 07/16/21 07/24/21 History tablet (Entresto) spironolactone 25 mg tablet 12.5 mg PO DAILY 07/12/21 07/16/21 Unknown History trazodone 50 mg tablet 50 mg PO BEDTIME PRN 07/12/21 07/16/21 Unknown History vit C 250 mg-vit E 90 mg-zinc 40 1 tab PO BID 07/12/21 07/16/21 Unknown History mg-copper 1 [id number] capsule (PreserVision AREDS-2) sacubitril 97 mg-valsartan 103 mg 1 tab PO BID 07/24/21 07/24/21 Unknown History tablet (Entresto) Exam Airway Mallampati Class: I TM Dist: >3cm Neck ROM: Full Loose/Missing/Broken Teeth: Yes Assessment and Plan Assessment Anesthesia Assessment: Anesthesia Plan Discussed Final Anesthetic Review Family History of Problems with Anesthesia: No History of Problems with Anesthesia: No NPO: Yes ASA Class: IV Final Preanesthetic Review: No Changes in Pt Med Stat, Meds/Allgs Chart Reviewed, Consent Obtained/Reviewed and Anes Risks/Benef Reviewed Patient Risk: High Procedure Risk: Intermediate Anesthetic Plan Anesthetic Plan: GA and Regional Block Disposition: Standard PACU
[2021-07-24] VITALS (23 sets, daily range): BP systolic 90–158; BP diastolic 55–81; PULSE 63–74; RESP 10–20; TEMP 35.7–36.6; O2SAT 92–98
--- NOTE | ~2021-07-24 | XR_ITS ---
EXAMINATION: XR KNEE, RIGHT CLINICAL INFORMATION: Postop COMPARISON: Previous x-ray March 2021 TECHNIQUE: Four views of the right knee. FINDINGS: There is a new 3 component right knee replacement in satisfactory position. No fracture or dislocation is seen. There are postsurgical changes to the soft tissues. XR/XR knee RT 2V IMPRESSION: Satisfactory appearance of right knee replacement.
[2021-07-24 07:09] LABS: COVID-19 Test Negative (Negative)
[2021-07-24] MEDS: vancomycin HCL 1,500 MG in 0.9 % Sodium Chloride 500 ML 333.33 MG IV (07:11)
[2021-07-24] MEDS: Lactated Ringers 1,000 ML 50 ML IVCONT ×2 (07:12→13:08)
--- NOTE | 2021-07-24 07:25 | PC.NURSE ---
patient has bilateral scratches to lowr ankles from his dog. md trejo aware of the right inner ankle scratch.
--- NOTE | 2021-07-24 07:41 | MHC.SHP ---
Pre-Procedural Eval Section A Date of Service: 07/24/21 The patient is an INPATIENT: No Changes since office visit: Yes Patient answered all questions; No Cold of Flu in the past 2 weeks, No New Medical Problems and No Changes in Medication The History & Physical has been completed within 30 days and I have reviewed it.: Yes Section B Chief Complaint: osteoarthritis Allergies: Allergies Allergy/AdvReac Type Severity Reaction Status Date / Time Penicillins [PENICILLINS] Allergy Intermediate ITCHY RASH Verified 07/16/21 11:18 Plan I have reviewed the history and physical and performed a pertinent physical examination on my patient. No changes have occurred unless specified.
--- NOTE | 2021-07-24 09:19 | PM.OP ---
Brief Operative Note Date of Service: 07/24/21 Pre-op diagnosis: right knee OA Post-op diagnosis: same Procedure: Right TKA Implants: Salvador triathalon press fit cruciate retaining Triathalon 09/06/10 Surgeon: Gurvinder Higgins MD Anesthesia: GETA and regional Was an Director Software Development used for this Procedure?: Yes Director Software Development: Harrison Miller Estimated blood loss (mL): 200 IV fluids (mL): 1,000 Pathology: other Condition: stable Disposition: PACU
--- NOTE | 2021-07-24 09:20 | P.OP_ITS ---
Operative Note Operative Note Date of Service: 07/24/21 Narrative: Pre-op diagnosis: right knee OA Post-op diagnosis: same Procedure: Right TKA Implants: [employer] triathalon press fit cruciate retaining Triathalon //11CR/35a Surgeon: Gurvinder Higgins MD Anesthesia: GETA and regional Was an Director [employer] used for this Procedure?: Yes Director [employer]: Harrison Miller Estimated blood loss (mL): 200 IV fluids (mL): 1,000 Pathology: other Condition: stable Disposition: PACU Procedure in detail: The patient was brought to the operating room and prepped and draped in standard sterile fashion. A time-out was called to identify proper site proper procedure proper surgeon and IV antibiotics were administered. 1 g of IV tranexamic acid was administered. I began by making a midline incision to the retinaculum and performed a medial parapatellar arthrotomy. The patella was translated laterally and the knee was flexed up. The medial compartment was eburnated . I performed a small medial peel and resected the infrapatellar fat pad. Sebastian's line was then used to drill my intramedullary femoral guide and my distal femur cut of 12 mm was made in 5 degrees of valgus while protecting the soft tissues. I then measured a # 5 femur and placed my cutting guide and made my anterior posterior and chamfer cuts protecting the soft tissues at all times. Once I was satisfied with my cuts I turned my attention to the tibia. I removed the meniscus medially and laterally and , using an external cutting guide, in line with the tibial crest and the third ray, I made my distal tibial cut in 3 deg slope of while protecting the PCL the posterior soft tissues at all times. An extension block was used to confirm appropriate amount of bony resection. I then sized a #5 tibia and once I was satisfied that there was complete tibial coverage I placed my trial and with the trial femur in place took the knee through range of motion. I was satisfied with the extension and flexion as well as the stability and balnce at 0, 30 and 90 degrees. I then turned my attention to the patella where I removed 1 cm from the undersurface of the patella and then trialed a 35a patellar button. Again the knee was taken through range of motion I was satisfied with the tracking. I then returned to the femur and drilled my femoral lug holes and prepared the tibia. A femoral bone plug was placed and the knee was irrigated copiously. I then press fit the patella, tibia and femur in standard fashion. I trialed different inserts until I selected a #11 insert. The final insert was placed and a 3 minutes iodine soak with local TXA was performed. Hemostasis was maintained with a the [facility] hemostasis wand. The knee was then closed with a running Quill suture, a 3 0 Vicryl and marielos on the skin. Patient was then placed in sterile dressing and brought to recovery room in stable condition there were no known complications.
--- NOTE | 2021-07-24 09:28 | PM.EVENT ---
Event Note Date of Service: 07/24/21 Event Note: elicindyis @ 18 hrs plavix 48 hrs
[2021-07-24] MEDS: oxyCODONE HCl Immed Release 5 MG TABLET PO ×2 (09:41→10:10)
[2021-07-24] MEDS: HYDROmorphone HCl 0.5 MG/0.5 ML SYRINGE IVPUSH ×5 (09:41→12:21)
--- NOTE | 2021-07-24 14:15 | P.CONIM_ITS ---
History of Present Illness Data of Consult Service Date: 07/24/21 Primary Care Provider: Ezra Denney, [facility]- HPI Reason for consult: cad 71M presented for elective right TKA for OA. he has extensive cardiac history. currently stable, denies chest pain, sob, fever, chiils, palpitations. Review of Systems Review of Systems: Yes all other systems are reviewed and are negative [facility] Medical History CAD (coronary artery disease) Carpal tunnel syndrome of left wrist Depression Familial hypocalciuric hypercalcemia History of blood transfusion HTN (hypertension) Hyperparathyroidism Hypothyroidism Ischemic cardiomyopathy Left carpal tunnel syndrome FÉLIX (obstructive sleep apnea) Osteopenia Paroxysmal atrial fibrillation PTSD (post-traumatic stress disorder) Pulmonary nodule Vitamin D deficiency Family History Father CAD (coronary artery disease) Mother CVA (cerebral vascular accident) Surgical History AICD (automatic cardioverter/defibrillator) present History of AAA (abdominal aortic aneurysm) repair Hx of appendectomy Hx of colonoscopy Hx of discectomy Hx of tonsillectomy S/P CABG x 6 Social History Are you a primary career resource specialist to a significant other at home: No Do you presently have visiting nurse or other home services: No Alcohol intake: never Patient Tobacco Use Status: Former Tobacco user Quit Date: Tobacco use type: Cigarette Current occupational status: retired Meds Allergies Allergy/AdvReac Type Severity Reaction Status Date / Time Penicillins [PENICILLINS] Allergy Intermediate ITCHY RASH Verified 07/16/21 11:18 Active Medications: Current Medications Acetaminophen (Acetaminophen 325 Mg Tablet) 650 mg PO Q6H PRN PRN Reason: Pain, Mild (Pain Scale 1-3) Amiodarone HCl (Amiodarone Hcl 200 Mg Tablet) 200 mg PO DAILY [facility] Ascorbic Acid (Ascorbic Acid 500 Mg Tablet) 500 mg PO DAILY [facility] Atorvastatin Calcium (Atorvastatin Calcium 80 Mg Tablet) 80 mg PO DAILY [facility] Celecoxib (Celecoxib 200 Mg Capsule) 200 mg PO BID [facility] Clopidogrel Bisulfate (Clopidogrel Bisulfate 75 Mg Tablet) 75 mg PO DAILY [facility] Docusate Sodium (Docusate Sodium 100 Mg Capsule) 100 mg PO BID [facility] Ezetimibe (Ezetimibe 10 Mg Tablet) 10 mg PO BEDTIME [facility] Hydromorphone HCl (Hydromorphone Hcl 0.5 Mg/0.5 Ml Syringe) 0.5 mg IVPUSH Q10M PRN; Protocol PRN Reason: Pain, Moderate (Pain Scale 4-6 Last Admin: 07/24/21 12:21 Dose: 0.5 mg Documented by: Hydromorphone HCl (Hydromorphone Hcl 1 Mg/Ml Syringe) 0.25 mg IVPUSH Q4H PRN; Protocol PRN Reason: Pain, Severe (Pain Scale 7-10) Vancomycin HCl 1,000 mg/ (Sodium Chloride) 270 mls @ 270 mls/hr IV POSTOP ONE Stop: 07/25/21 19:59 Levothyroxine Sodium (Levothyroxine Sodium 175 Mcg Tablet) 175 mcg PO DAILY@0600 [facility] Metoprolol Succinate (Metoprolol Succinate Er 50 Mg Tab.Er.24h) 50 mg PO DAILY [facility]; Protocol Omeprazole (Omeprazole 20 Mg Capsule.Dr) 20 mg PO DAILY [facility] Oxycodone HCl (Oxycodone Hcl Immed Release 5 Mg Tablet) 10 mg PO Q4H PRN PRN Reason: Pain, Moderate (Pain Scale 4-6 Oxycodone HCl (Oxycodone Hcl Er 10 Mg Tab.Er.12h) 10 mg PO BID [facility] Paroxetine HCl (Paroxetine Hcl 20 Mg Tablet) 20 mg PO DAILY [facility] Sacubitril/Valsartan (Sacubitril/Valsartan 97/103 1 Tab Tablet) 1 tab PO BID [facility]; Protocol Sodium Chloride (0.9 % Sodium Chloride Flush 3 Ml Syringe) 3 ml IVFLUSH QSHIFT [facility] Spironolactone (Spironolactone 25 Mg Tablet) 12.5 mg PO DAILY [facility]; Protocol Trazodone HCl (Trazodone Hcl 50 Mg Tablet) 50 mg PO BEDTIME PRN PRN Reason: sleep Vitamin D (Cholecalciferol (Vitamin D3) 25 Mcg Tablet) 50 mcg PO DAILY [facility] Home Medications Medication Instructions Recorded Confirmed Last Taken Type clopidogrel 75 mg tablet 75 mg PO DAILY 02/07/20 07/16/21 07/20/21 History amiodarone 200 mg tablet 200 mg PO DAILY 05/29/21 07/16/21 Unknown History ascorbate calcium (vitamin C) 500 500 mg PO DAILY 07/04/21 07/16/21 Unknown History mg tablet ezetimibe 10 mg tablet 10 mg PO BEDTIME 07/12/21 07/16/21 Unknown History sacubitril 97 mg-valsartan 103 mg 1 tab PO BID 07/12/21 07/16/21 07/24/21 History tablet (Entresto) spironolactone 25 mg tablet 12.5 mg PO DAILY 07/12/21 07/16/21 Unknown History trazodone 50 mg tablet 50 mg PO BEDTIME PRN 07/12/21 07/16/21 Unknown History vit C 250 mg-vit E 90 mg-zinc 40 1 tab PO BID 07/12/21 07/16/21 Unknown History mg-copper 1 [id number] capsule (PreserVision AREDS-2) Physical Exam Vital Signs and Narrative: Vital Signs: Last Vital Signs Temp 96.8 F 07/24/21 12:21 Pulse 63 07/24/21 13:55 Resp 10 L 07/24/21 12:27 BP 90/61 07/24/21 13:55 Pulse Ox 96 07/24/21 13:55 BMI result Body Mass Index 31.0 General: AO X 3, no acute distress Resp: CTA bilateral, no accessory muscles used CVS: S1,S2,RRR GI: soft, non tender, non distended Neuro: motor grossly intact, alert Psych: appropriate affect, appropriate insight Results Labs Labs: Laboratory Results - last 24 hr 07/24/21 06:30 COVID-19 (HITESH) Negative COVID-19 Clin Com See Note Imaging Radiologist's Impressions: Impressions Knee X-Ray 07/24/21 10:55 IMPRESSION: Satisfactory appearance of right knee replacement. Assessment and Plan (1) Severe obstructive sleep apnea: Status: Acute Plan 71M admitted for right TKA right TKA management per ortho ischemic cardiomyopathy enetresto, aldactone, toprol, plavix, statin, has AICD avoid volume overload parozysmal afib amio, toprol, restart eliquis when okay surgically hypothyroid synthroid (recently adjusted), outpatient follow up FÉLIX cpap at night hyperparathyroid outpatient monitoring will follow
[2021-07-24] MEDS: HYDROmorphone HCl 1 MG/ML SYRINGE 0.25 MG IVPUSH (15:55)
[2021-07-24] MEDS: 0.9 % Sodium Chloride Flush 3 ML SYRINGE IVFLUSH (15:56)
[2021-07-24] MEDS: Acetaminophen 325 MG TABLET 650 MG PO (18:52)
[2021-07-24] MEDS: oxyCODONE HCl Immed Release 5 MG TABLET 10 MG PO (18:52)
[2021-07-24] MEDS: Sacubitril/Valsartan 97/103 1 TAB TABLET PO (20:49)
[2021-07-24] MEDS: Celecoxib 200 MG CAPSULE PO (20:49)
[2021-07-24] MEDS: oxyCODONE HCl ER 10 MG TAB.ER.12H PO (20:49)
[2021-07-24] MEDS: Docusate Sodium 100 MG CAPSULE PO (20:49)
[2021-07-24] MEDS: Ezetimibe 10 MG TABLET PO (20:50)
[2021-07-24] MEDS: vancomycin HCL 1,000 MG in 0.9 % Sodium Chloride 250 ML 270 MG IV (22:58)
[2021-07-25] VITALS (8 sets, daily range): BP systolic 88–108; BP diastolic 50–63; PULSE 64–77; RESP 16–20; TEMP 36.2–36.8; O2SAT 93–95
[2021-07-25] MEDS: oxyCODONE HCl Immed Release 5 MG TABLET 10 MG PO ×4 (01:45→23:05)
[2021-07-25] MEDS: traZODone HCL 50 MG TABLET PO (01:45)
[2021-07-25] MEDS: 0.9 % Sodium Chloride Flush 3 ML SYRINGE IVFLUSH ×3 (01:46→20:35)
[2021-07-25] MEDS: Levothyroxine Sodium 175 MCG TABLET PO (05:25)
[2021-07-25] MEDS: Acetaminophen 325 MG TABLET 650 MG PO ×2 (05:25→23:05)
[2021-07-25 05:58] LABS: Basophils Percent Auto 0.1 % (0-2); Hematocrit 38.4 % (42.0-52.0); Hemoglobin 12.4 g/dl (14.0-18.0); Imm Gran Pct Auto 0.6 % (0.0-0.4); Lymphocytes Absolute Auto 0.9 X10*3/uL (1.2-4.9); Lymphocytes Percent Auto 5.8 % (20-40); MANUAL DIFF FLAG SCAN; Mean Corpuscular HGB Conc 32.3 g/dl (31.0-36.0); Mean Corpuscular Hemoglobin 30.2 pg (27.0-33.0); Mean Corpuscular Volume 93.7 fL (80.0-98.0); Monocytes Absolute Auto 1.6 X10*3/uL (0.1-1.2); Monocytes Percent Auto 9.5 % (2-11); Neutrophils Absolute Auto 13.6 x10*3/uL (2.0-8.3); Platelet Count 191 X10*3/uL (160-400); Red Cell Distribution Width 14.7 % (11.0-16.0); SCAN SMEAR FLAG 1; White Blood Count 16.2 X10*3/uL (4.8-10.8)
[2021-07-25 06:21] LABS: SLIDE REVIEW VERIFIED
[2021-07-25 06:23] LABS: Anion Gap 11 (12-20); Blood Urea Nitrogen 12 mg/dL (9-16); Calcium 8.8 mg/dL (8.4-10.2); Carbon Dioxide 23 mmol/L (22-29); Chloride 107 mmol/L (96-108); Creatinine Clr Calc Pharmacy 93.1; Estimated Glomerular Filt Rate > 60; Glucose Fasting 122 mg/dL (60-99); Potassium 4.2 mmol/L (3.3-5.1); Sodium 137 mmol/L (135-145)
--- NOTE | 2021-07-25 07:40 | PM.PNORT ---
Subjective Subjective Date of Service: 07/25/21 Interval history: POD1 s/p RTKA. Patient is walking with physical therapy. No overnight events. Pain is well managed. No additional complaints. Physical Exam Vital Signs: Vital Signs: Last Vital Signs Temp 97.3 F 07/25/21 07:20 Pulse 64 07/25/21 07:20 Resp 18 07/25/21 07:20 BP 92/54 L 07/25/21 07:20 Pulse Ox 95 07/25/21 07:20 BMI result Body Mass Index 31.0 Const: General: cooperative, healthy appearing and no acute distress Resp: Effort & Inspection: normal respiratory effort and able to speak in complete sentences Cardio: Rate: regular rate Peripheral pulses: Peripheral pulses 2+ throughout GI: Palpation (GI): Soft to palpation Skin: Lesions: no lesions Rashes: no rashes Extrem: Other: Right knee aquacel is clean. dry and intact. NVI. Procedures Date of Service Date of Service: 07/25/21 Progress Note: A&P Assessment and plan (1) Status post total knee replacement, right: Status: Acute Plan Continue pain mgmnt Begin Eliquis at 18hrs post op and then plavix at 48hrs dvt ppx begin PT for RTKA Dispo planning-Pending PT eval, pain mgmnt Fall Risk Details Current Medications: Current Medications Acetaminophen (Acetaminophen 325 Mg Tablet) 650 mg PO Q6H PRN PRN Reason: Pain, Mild (Pain Scale 1-3) Last Admin: 07/25/21 05:25 Dose: 650 mg Documented by: Amiodarone HCl (Amiodarone Hcl 200 Mg Tablet) 200 mg PO DAILY [facility] Ascorbic Acid (Ascorbic Acid 500 Mg Tablet) 500 mg PO DAILY [facility] Atorvastatin Calcium (Atorvastatin Calcium 80 Mg Tablet) 80 mg PO DAILY [facility] Celecoxib (Celecoxib 200 Mg Capsule) 200 mg PO BID [facility] Last Admin: 07/24/21 20:49 Dose: 200 mg Documented by: Clopidogrel Bisulfate (Clopidogrel Bisulfate 75 Mg Tablet) 75 mg PO DAILY [facility] Docusate Sodium (Docusate Sodium 100 Mg Capsule) 100 mg PO BID [facility] Last Admin: 07/24/21 20:49 Dose: 100 mg Documented by: Ezetimibe (Ezetimibe 10 Mg Tablet) 10 mg PO BEDTIME [facility] Last Admin: 07/24/21 20:50 Dose: 10 mg Documented by: Hydromorphone HCl (Hydromorphone Hcl 0.5 Mg/0.5 Ml Syringe) 0.5 mg IVPUSH Q10M PRN; Protocol PRN Reason: Pain, Moderate (Pain Scale 4-6 Last Admin: 07/24/21 12:21 Dose: 0.5 mg Documented by: Hydromorphone HCl (Hydromorphone Hcl 1 Mg/Ml Syringe) 0.25 mg IVPUSH Q4H PRN; Protocol PRN Reason: Pain, Severe (Pain Scale 7-10) Last Admin: 07/24/21 15:55 Dose: 0.25 mg Documented by: Levothyroxine Sodium (Levothyroxine Sodium 175 Mcg Tablet) 175 mcg PO DAILY@0600 [facility] Last Admin: 07/25/21 05:25 Dose: 175 mcg Documented by: Metoprolol Succinate (Metoprolol Succinate Er 50 Mg Tab.Er.24h) 50 mg PO DAILY [facility]; Protocol Omeprazole (Omeprazole 20 Mg Capsule.Dr) 20 mg PO DAILY [facility] Oxycodone HCl (Oxycodone Hcl Immed Release 5 Mg Tablet) 10 mg PO Q4H PRN PRN Reason: Pain, Moderate (Pain Scale 4-6 Last Admin: 07/25/21 05:25 Dose: 10 mg Documented by: Oxycodone HCl (Oxycodone Hcl Er 10 Mg Tab.Er.12h) 10 mg PO BID [facility] Last Admin: 07/24/21 20:49 Dose: 10 mg Documented by: Paroxetine HCl (Paroxetine Hcl 20 Mg Tablet) 20 mg PO DAILY [facility] Sacubitril/Valsartan (Sacubitril/Valsartan 97/103 1 Tab Tablet) 1 tab PO BID [facility]; Protocol Last Admin: 07/24/21 20:49 Dose: 1 tab Documented by: Sodium Chloride (0.9 % Sodium Chloride Flush 3 Ml Syringe) 3 ml IVFLUSH QSHIFT [facility] Last Admin: 07/25/21 01:46 Dose: 3 ml Documented by: Spironolactone (Spironolactone 25 Mg Tablet) 12.5 mg PO DAILY [facility]; Protocol Trazodone HCl (Trazodone Hcl 50 Mg Tablet) 50 mg PO BEDTIME PRN PRN Reason: sleep Last Admin: 07/25/21 01:45 Dose: 50 mg Documented by: Vitamin D (Cholecalciferol (Vitamin D3) 25 Mcg Tablet) 50 mcg PO DAILY [facility] Time Spent With Patient Time: Total time spent is greater than 50% in coordination of care (as documented) at patient's floor/unit and/or counseling patient: Quality Stroke Does the patient have a stroke diagnosis?: No VTE Prior VTE?: No VTE Risk Level:: Surgical - very high VTE Device Contraindication: N/A - Device Ordered VTE Drug Contraindication: N/A - Med Ordered
--- NOTE | 2021-07-25 09:49 | MHC.CM.PN ---
et with pt who lives with his ,pt will going home with a vna for physical therapy when dcd pt has own transportaion home is vax x 3
[2021-07-25] MEDS: Omeprazole 20 MG CAPSULE.DR PO (10:29)
[2021-07-25] MEDS: Spironolactone 25 MG TABLET 12.5 MG PO (10:29)
[2021-07-25] MEDS: Clopidogrel Bisulfate 75 MG TABLET PO (10:30)
[2021-07-25] MEDS: PARoxetine HCL 20 MG TABLET PO (10:30)
[2021-07-25] MEDS: Docusate Sodium 100 MG CAPSULE PO ×2 (10:30→20:34)
[2021-07-25] MEDS: Cholecalciferol (Vitamin D3) 25 MCG TABLET 50 MCG PO (10:31)
[2021-07-25] MEDS: Atorvastatin Calcium 80 MG TABLET PO (10:31)
[2021-07-25] MEDS: Celecoxib 200 MG CAPSULE PO ×2 (10:31→20:33)
[2021-07-25] MEDS: Amiodarone HCL 200 MG TABLET PO (10:32)
[2021-07-25] MEDS: oxyCODONE HCl ER 10 MG TAB.ER.12H PO ×2 (10:32→20:34)
[2021-07-25] MEDS: Sacubitril/Valsartan 97/103 1 TAB TABLET PO ×2 (10:32→20:33)
[2021-07-25] MEDS: Ascorbic Acid 500 MG TABLET PO (10:33)
--- NOTE | 2021-07-25 11:33 | MHC.CLN ---
NUTRITION DIET CHANGED FROM REGULAR TO CARDIAC DUE TO CARDIAC HX/HTN.
--- NOTE | 2021-07-25 11:44 | PC.NURSE ---
bp 88/50 Dr Loving notified,no new orders at this time just to monitor.Patient is asymptomatic.
--- NOTE | 2021-07-25 15:18 | HO.PM.IMPN ---
Subjective Subjective Date of Service: 07/25/21 Interval History: Doing excellent postop no acute issues Review of Systems Denies chest pain Denies shortness of breath Denies nausea vomiting diarrhea Physical Exam Vital Signs: Vital Signs: Last Vital Signs Temp 98.3 F 07/25/21 11:33 Pulse 66 07/25/21 13:38 Resp 18 07/25/21 11:33 BP 88/50 L 07/25/21 13:38 Pulse Ox 93 07/25/21 13:38 BMI result Body Mass Index 31.0 Const: Other: Will no acute distress Resp: Other: Clear to auscultation bilaterally no rales rhonchi or wheezes Cardio: Other: No S4; positive S1-S2; no S3 murmurs or gallops GI: Other: Soft nontender nondistended normoactive bowel sounds Extrem: Other: No edema bilateral Objective Data Active Medications Acetaminophen (Acetaminophen 325 Mg Tablet) 650 mg PO Q6H PRN PRN Reason: Pain, Mild (Pain Scale 1-3) Last Admin: 07/25/21 05:25 Dose: 650 mg Documented by: LISA Amiodarone HCl (Amiodarone Hcl 200 Mg Tablet) 200 mg PO DAILY [facility] Last Admin: 07/25/21 10:32 Dose: 200 mg Documented by: LEYDI Ascorbic Acid (Ascorbic Acid 500 Mg Tablet) 500 mg PO DAILY [facility] Last Admin: 07/25/21 10:33 Dose: 500 mg Documented by: LEYDI Atorvastatin Calcium (Atorvastatin Calcium 80 Mg Tablet) 80 mg PO DAILY [facility] Last Admin: 07/25/21 10:31 Dose: 80 mg Documented by: LEYDI Celecoxib (Celecoxib 200 Mg Capsule) 200 mg PO BID [facility] Last Admin: 07/25/21 10:31 Dose: 200 mg Documented by: LEYDI Clopidogrel Bisulfate (Clopidogrel Bisulfate 75 Mg Tablet) 75 mg PO DAILY [facility] Last Admin: 07/25/21 10:30 Dose: 75 mg Documented by: LEYDI Docusate Sodium (Docusate Sodium 100 Mg Capsule) 100 mg PO BID [facility] Last Admin: 07/25/21 10:30 Dose: 100 mg Documented by: LEYDI Ezetimibe (Ezetimibe 10 Mg Tablet) 10 mg PO BEDTIME [facility] Last Admin: 07/24/21 20:50 Dose: 10 mg Documented by: YISEL Hydromorphone HCl (Hydromorphone Hcl 0.5 Mg/0.5 Ml Syringe) 0.5 mg IVPUSH Q10M PRN; Protocol PRN Reason: Pain, Moderate (Pain Scale 4-6 Last Admin: 07/24/21 12:21 Dose: 0.5 mg Documented by: CHE Hydromorphone HCl (Hydromorphone Hcl 1 Mg/Ml Syringe) 0.25 mg IVPUSH Q4H PRN; Protocol PRN Reason: Pain, Severe (Pain Scale 7-10) Last Admin: 07/24/21 15:55 Dose: 0.25 mg Documented by: KENNETH Levothyroxine Sodium (Levothyroxine Sodium 175 Mcg Tablet) 175 mcg PO DAILY@0600 [facility] Last Admin: 07/25/21 05:25 Dose: 175 mcg Documented by: LISA Metoprolol Succinate (Metoprolol Succinate Er 50 Mg Tab.Er.24h) 50 mg PO DAILY [facility]; Protocol Last Admin: 07/25/21 10:33 Dose: Not Given Documented by: LEYDI Non-Admin Reason: Decreased Blood Pressure Omeprazole (Omeprazole 20 Mg Capsule.Dr) 20 mg PO DAILY [facility] Last Admin: 07/25/21 10:29 Dose: 20 mg Documented by: LEYDI Oxycodone HCl (Oxycodone Hcl Immed Release 5 Mg Tablet) 10 mg PO Q4H PRN PRN Reason: Pain, Moderate (Pain Scale 4-6 Last Admin: 07/25/21 13:38 Dose: 10 mg Documented by: LEYDI Oxycodone HCl (Oxycodone Hcl Er 10 Mg Tab.Er.12h) 10 mg PO BID [facility] Last Admin: 07/25/21 10:32 Dose: 10 mg Documented by: LEYDI Paroxetine HCl (Paroxetine Hcl 20 Mg Tablet) 20 mg PO DAILY [facility] Last Admin: 07/25/21 10:30 Dose: 20 mg Documented by: LEYDI Sacubitril/Valsartan (Sacubitril/Valsartan 97/103 1 Tab Tablet) 1 tab PO BID [facility]; Protocol Last Admin: 07/25/21 10:32 Dose: 1 tab Documented by: LEYDI Sodium Chloride (0.9 % Sodium Chloride Flush 3 Ml Syringe) 3 ml IVFLUSH QSHIFT [facility] Last Admin: 07/25/21 15:00 Dose: Not Given Documented by: LEYDI Non-Admin Reason: flushed with med Spironolactone (Spironolactone 25 Mg Tablet) 12.5 mg PO DAILY [facility]; Protocol Last Admin: 07/25/21 10:29 Dose: 12.5 mg Documented by: LEYDI Trazodone HCl (Trazodone Hcl 50 Mg Tablet) 50 mg PO BEDTIME PRN PRN Reason: sleep Last Admin: 07/25/21 01:45 Dose: 50 mg Documented by: CASTILWilliam Vitamin D (Cholecalciferol (Vitamin D3) 25 Mcg Tablet) 50 mcg PO DAILY [facility] Last Admin: 07/25/21 10:31 Dose: 50 mcg Documented by: LEYDI Labs CBC & Chem 7: 07/25/21 05:20 07/25/21 05:20 Labs: Laboratory Results - last 24 hr 07/25/21 07/25/21 05:20 05:20 MCV 93.7 MCH 30.2 MCHC 32.3 RDW 14.7 Plt Count 191 MPV 10.0 Immature Gran % (Auto) 0.6 H Neut % (Auto) 84.0 H Lymph % (Auto) 5.8 L [place] % (Auto) 9.5 Eos % (Auto) 0.0 Baso % (Auto) 0.1 Lymph # (Auto) 0.9 L [place] # (Auto) 1.6 H Eos # (Auto) 0.0 Baso # (Auto) 0.0 Abs Immat Gran (auto) 0.10 H Absolute Neuts (auto) 13.6 H Absolute Nucleated RBC 0.000 Nucleated RBC % (auto) 0.0 Smear Tech's Comments VERIFIED Anion Gap 11 L Estim Creat Clear Calc 93.1 Estimated GFR > 60 Fasting Glucose 122 H Calcium 8.8 D Assessment and Plan (1) Status post total knee replacement, right: Status: Acute (2) Ischemic cardiomyopathy: Status: Acute (3) Hypothyroidism: Status: Acute Plan 71M admitted for right TKA 1.right TKA management per ortho 2.ischemic cardiomyopathy -enetresto, aldactone, toprol, plavix, statin, has AICD -doing well 3.parozysmal afib -remains NSR -amio, toprol, 4.hypothyroid -synthroid (recently adjusted), outpatient follow up 6.FÉLIX cpap at night 7.hyperparathyroid outpatient monitoring Quality Stroke Does the patient have a stroke diagnosis?: No VTE Prior VTE?: No VTE Risk Level:: Surgical - very high VTE Device Contraindication: N/A - Device Ordered VTE Drug Contraindication: N/A - Med Ordered
--- NOTE | 2021-07-25 15:28 | HO.POSTANES ---
Post Anesthesia Evaluation Post Anesthesia Evaluation Vital Signs: Vital Signs Temp Pulse Resp BP Pulse Ox 07/25/21 13:38 66 88/50 L 93 07/25/21 11:33 98.3 F 66 18 88/50 L 93 07/25/21 07:49 64 92/54 L 95 07/25/21 07:20 97.3 F 64 18 92/54 L 95 07/25/21 03:37 97.9 F 77 18 90/56 L 93 Anesthesia: Nerve Block and General Mental Status: Awake Pain Control: Satisfactory Nausea/Vomiting: None Hydration: Adequate Anesthesia-Related Issues: No Anes. Related Issues
[2021-07-25] MEDS: Ezetimibe 10 MG TABLET PO (20:33)
[2021-07-25] MEDS: HYDROmorphone HCl 1 MG/ML SYRINGE 0.25 MG IVPUSH (20:34)
[2021-07-26 03:43] VITALS: BP 95/54; PULSE 89; RESP 14; TEMP 36; O2SAT 94
[2021-07-26] MEDS: Levothyroxine Sodium 175 MCG TABLET PO (05:37)
[2021-07-26 05:57] LABS: MANUAL DIFF FLAG NO
[2021-07-26 06:07] LABS: Basophils Percent Auto 0.4 % (0-2); Eosinophils Absolute Auto 0.1 X10*3/uL (0.0-0.4); Eosinophils Percent Auto 0.5 % (0-4); Hematocrit 40.8 % (42.0-52.0); Hemoglobin 13.1 g/dl (14.0-18.0); Imm Gran Abs Auto 0.05 X10*3/uL (0.00-0.03); Imm Gran Pct Auto 0.5 % (0.0-0.4); Lymphocytes Absolute Auto 1.8 X10*3/uL (1.2-4.9); Lymphocytes Percent Auto 16.4 % (20-40); Mean Corpuscular HGB Conc 32.1 g/dl (31.0-36.0); Mean Corpuscular Hemoglobin 30.5 pg (27.0-33.0); Mean Corpuscular Volume 95.1 fL (80.0-98.0); Mean Platelet Volume 9.8 fL (9.4-12.4); Monocytes Absolute Auto 1.4 X10*3/uL (0.1-1.2); Monocytes Percent Auto 12.7 % (2-11); Neutrophils Absolute Auto 7.6 x10*3/uL (2.0-8.3); Neutrophils Percent Auto 69.5 % (45-73); Platelet Count 187 X10*3/uL (160-400); Red Blood Count 4.29 X10*6/uL (4.60-5.80)
[2021-07-26 06:32] LABS: Anion Gap 13 (12-20); Blood Urea Nitrogen 10 mg/dL (9-16); Calcium 9.1 mg/dL (8.4-10.2); Carbon Dioxide 26 mmol/L (22-29); Chloride 106 mmol/L (96-108); Creatinine Clr Calc Pharmacy 97.6; Estimated Glomerular Filt Rate > 60; Glucose Fasting 103 mg/dL (60-99); Potassium 4.6 mmol/L (3.3-5.1); Sodium 140 mmol/L (135-145)
[2021-07-26] MEDS: oxyCODONE HCl Immed Release 5 MG TABLET 10 MG PO (06:45)
[2021-07-26] MEDS: Acetaminophen 325 MG TABLET 650 MG PO (06:45)
[2021-07-26 07:22] VITALS: BP 110/61; PULSE 77; RESP 18; TEMP 36; O2SAT 96
[2021-07-26 08:00] VITALS: BP 110/61; PULSE 77; O2SAT 96
[2021-07-26] MEDS: oxyCODONE HCl ER 10 MG TAB.ER.12H PO (08:27)
[2021-07-26] MEDS: Atorvastatin Calcium 80 MG TABLET PO (08:28)
[2021-07-26] MEDS: Sacubitril/Valsartan 97/103 1 TAB TABLET PO (08:28)
[2021-07-26] MEDS: Clopidogrel Bisulfate 75 MG TABLET PO (08:28)
[2021-07-26] MEDS: Docusate Sodium 100 MG CAPSULE PO (08:28)
[2021-07-26] MEDS: Celecoxib 200 MG CAPSULE PO (08:28)
[2021-07-26] MEDS: Spironolactone 25 MG TABLET 12.5 MG PO (08:29)
[2021-07-26] MEDS: Omeprazole 20 MG CAPSULE.DR PO (08:29)
[2021-07-26] MEDS: Ascorbic Acid 500 MG TABLET PO (08:29)
[2021-07-26] MEDS: Cholecalciferol (Vitamin D3) 25 MCG TABLET 50 MCG PO (08:29)
[2021-07-26] MEDS: Metoprolol Succinate ER 50 MG TAB.ER.24H PO (08:29)
[2021-07-26] MEDS: PARoxetine HCL 20 MG TABLET PO (08:29)
[2021-07-26] MEDS: Amiodarone HCL 200 MG TABLET PO (08:30)
[2021-07-26] MEDS: 0.9 % Sodium Chloride Flush 3 ML SYRINGE IVFLUSH (08:33)
--- NOTE | 2021-07-26 08:54 | PM.DS ---
DS: Providers Provider Date of Service: 07/26/21 Primary care physician: RAYMON FlorianP- Consults: 07/24/21 12:43 Consult to Hospitalist Routine Consulting Provider: Hospitalist Reason For Exam: CAD, HTn DS: Diagnosis Discharge Diagnosis (1) Status post total knee replacement, right: Status: Acute (2) Ischemic cardiomyopathy: Status: Acute (3) Hypothyroidism: Status: Acute DS: Summary Hospital Course Hospital Course: The patient underwent a successful right total knee arthroplasty, they were transferred to PACU and then to the floor to recover. During their stay, their vitals were stable, afebrile at 96.8. Labs were unremarkable, H/H 13.1/408. Patient began Plavix 18 hrs post op and then resumed Eliquis POD2 normal dosages for DVT ppx, they also received Physical Therapy services twice a day. Prior to discharge, their dressing was changed, incision clean dry and intact, new Aquacel dressing applied and the plan was to be discharged home with VNA services. Time Spent with Patient Time attestation: Total time spent providing and/or coordinating discharge services: Discharge coordination time: Less than 30 minutes Quality: Stroke Does the patient have a stroke diagnosis?: No Physical Exam Vital Signs: Vital Signs: Last Vital Signs Temp 96.8 F 07/26/21 07:22 Pulse 77 07/26/21 08:00 Resp 18 07/26/21 07:22 BP 110/61 07/26/21 08:00 Pulse Ox 96 07/26/21 08:00 BMI result Body Mass Index 31.0 Const: General: cooperative, healthy appearing and no acute distress Resp: Effort & Inspection: normal respiratory effort and able to speak in complete sentences Cardio: Rate: regular rate Peripheral pulses: Peripheral pulses 2+ throughout GI: Palpation (GI): Soft to palpation Skin: Lesions: no lesions Rashes: no rashes Extrem: Other: Right knee aquacel is clean. dry and intact. [place] intact. Patient able to perform knee flexion and extension. NVI. DS: Data Data Completed and Pending Pending studies at discharge: Pending at discharge 07/24/21 08:59 Surgical [PTH] Routine Labs on day of discharge: Laboratory Results - last 24 hr 07/26/21 07/26/21 05:43 05:43 WBC 11.0 H RBC 4.29 L Hgb 13.1 L Hct 40.8 L MCV 95.1 MCH 30.5 MCHC 32.1 RDW 15.0 Plt Count 187 MPV 9.8 Immature Gran % (Auto) 0.5 H Neut % (Auto) 69.5 Lymph % (Auto) 16.4 L [place] % (Auto) 12.7 H Eos % (Auto) 0.5 Baso % (Auto) 0.4 Lymph # (Auto) 1.8 [place] # (Auto) 1.4 H Eos # (Auto) 0.1 Baso # (Auto) 0.0 Abs Immat Gran (auto) 0.05 H Absolute Neuts (auto) 7.6 Absolute Nucleated RBC 0.000 Nucleated RBC % (auto) 0.0 Sodium 140 Potassium 4.6 Chloride 106 Carbon Dioxide 26 Anion Gap 13 BUN 10 Creatinine 0.84 Estim Creat Clear Calc 97.6 Estimated GFR > 60 Fasting Glucose 103 H Calcium 9.1 Discharge Plan Discharge Patient Disposition: Home, Self-Care Referrals: Harrison Miller PA-C [Physician [employer] Worker] - 1 Week (08/09/21 at 12:30pm) Discharge Medications: New celecoxib 200 mg Capsule 200 mg PO BID 30 Days Qty: 60 0RF acetaminophen 325 mg Tablet 650 mg PO Q6H PRN (Reason: Pain, Mild (Pain Scale 1-3)) 30 Days Qty: 240 0RF oxycodone 10 mg tablet 10 mg PO Q4H PRN (Reason: Pain, Moderate (Pain Scale 4-6) 7 Days Qty: 42 0RF docusate sodium 100 mg Capsule 100 mg PO BID 30 Days Qty: 60 0RF Continued rosuvastatin 40 mg tablet 40 mg PO DAILY Qty: 90 2RF Eliquis 5 mg tablet 5 mg PO BID Qty: 180 1RF pantoprazole 40 mg tablet,delayed release (DR/EC) 40 mg PO DAILY Qty: 90 1RF potassium chloride 20 mEq tablet extended release 20 meq PO BID Qty: 180 0RF nitroglycerin [Nitrostat] 0.4 mg tablet, sublingual 0.4 mg sublingual Q5M PRN (Reason: chest pain) 30 Days Qty: 90 1RF Rx Instructions: do not exceed 3 doses per episode (DME) leonela Misc See Rx Instructions .MEDSUPPLY Qty: 1 0RF Rx Instructions: Folding Front wheeled walker levothyroxine 175 mcg tablet 175 mcg PO DAILY 30 Days Qty: 30 3RF paroxetine HCl 20 mg tablet 20 mg PO QAM Qty: 30 4RF isosorbide mononitrate 60 mg tablet extended release 24 hr 60 mg PO DAILY Qty: 90 0RF PreserVision AREDS-2 250-90-40-1 mg Capsule 1 tab PO BID 0RF Entresto 97-103 mg tablet 1 tab PO BID 0RF trazodone 50 mg tablet 50 mg PO BEDTIME PRN (Reason: sleep) 0RF Rx Instructions: 25mg qhs, may repeat dose x's 1 spironolactone 25 mg tablet 12.5 mg PO DAILY 0RF ezetimibe 10 mg tablet 10 mg PO BEDTIME 0RF clopidogrel 75 mg tablet 75 mg PO DAILY 0RF cholecalciferol (vitamin D3) [D3-2000] 50 mcg (2,000 unit) capsule 50 mcg PO DAILY Qty: 90 1RF ascorbate calcium (vitamin C) 500 mg tablet 500 mg PO DAILY 0RF amiodarone 200 mg tablet 200 mg PO DAILY 0RF metoprolol succinate [Toprol XL] 50 mg tablet extended release 24 hr 50 mg PO DAILY 30 Days Qty: 30 1RF diphenhydramine HCl [Benadryl] 25 mg capsule 25 mg PO BEDTIME PRN (Reason: sleep) Qty: 20 0RF Discharge Orders: Discharge Order (Routine); Ordered 07/26/21 Ordered By: Radha Mccormick Activity Restrictions/Additional Instructions: Physical Therapy for ROM 0-120, quad strength, gait training. Use walker for ambulation Limit stair climbing, No shower, No tub bath, No driving Continue anticoagulant Keep Aquacel dressing clean, dry and intact. Follow up with orthopedics in 2 weeks
--- NOTE | 2021-07-26 08:57 | W.MHC.F2F ---
Service Date Service Date: 07/26/21 Encounter Date of encounter: 07/26/21 Reasons for Services Signs and symptoms assessed: s/p RTKA Reason for physical therapy: home safety and mobility, therapeutic exercises, restore joint function, gait/transfer training, assess need for DME and ADL training Homebound: Leaving the home is medically contraindicated at this time without the asist of a device and/or another person due th the listed conditions above and below. Reason homebound: unsteady gait / fall risk, leg weakness, pain with ambulation, pain with transfers, poor balance / fall risk and unable to drive Homebound supporting statement: Pt. is considered homebound due to recent surgery. Unable to drive, poor balance, poor gait mechanics. Certification: Based on the above findings, I certify that this patient is confined to the home and needs intermittent [facility] care, physical therapy and/or speech therapy, or continues to need occupational therapy. The patient is under my care, and I have initiated the establishment of the plan of care. The patient will be followed by a physician who will periodically review the plan of care.
--- NOTE | 2021-07-26 09:19 | MHC.CM.PN ---
PT WILL DC HOME TODAY WITH NASRIN DOMINGUEZA FOR PHYSICAL THERAPY
[2021-07-26 11:21] VITALS: BP 103/51; PULSE 59; RESP 18; TEMP 36; O2SAT 98
[2021-07-26] MEDS: Apixaban 5 MG TABLET PO (12:12)
--- NOTE | 2021-07-26 12:19 | PC.NURSE ---
Patient discharged home with VNA. Discharge instructions reviewed with patient, patient verbalized understanding. IV removed, no issues. Patient discharged via wheelchair off unit.
== END 2021-07-26 13:15 | disposition home or self-care (01) ==
LOC: HO.SSS 05:56 → HO.S3 11:44
PROVIDERS: Physician Assistant; PCP Nurse Practitioner Family; Visit Provider Orthopaedic Surgery
PROC: (CPT 27447; principal; 2021-07-24 07:30)
DX: M17.11 Unilateral primary osteoarthritis, right knee (principal); I25.5 Ischemic cardiomyopathy; I25.10 Atherosclerotic heart disease of native coronary artery without angina pectoris; I10 Essential (primary) hypertension; Z95.1 Presence of aortocoronary bypass graft; Z95.810 Presence of automatic (implantable) cardiac defibrillator; I48.0 Paroxysmal atrial fibrillation; Z79.01 Long term (current) use of anticoagulants; E03.9 Hypothyroidism, unspecified; E21.3 Hyperparathyroidism, unspecified; R91.1 Solitary pulmonary nodule; G47.33 Obstructive sleep apnea (adult) (pediatric); E55.9 Vitamin D deficiency, unspecified; Z79.899 Other long term (current) drug therapy; Z88.0 Allergy status to penicillin; Z87.891 Personal history of nicotine dependence; Z20.822 Contact with and (suspected) exposure to COVID-19; Z98.890 Other specified postprocedural states
CPT/HCPCS: 27447; 36415; 73560; 80048; 85025; 86850; 86900; 86901; 87635; 87640; 87641; 88305; 88311; 97110; 97116; 97162; C1776; J0131; J1100; J1170; J2250; J2405; J3010; J3370

== ENCOUNTER 2021-08-09 09:47 | Outpatient (RCR) | payer MEDICARE, SELFPAY | END 2021-10-12 09:39 | disposition home or self-care (01) | LOC: HO.PT 09:47 | PROVIDERS: Visit Provider Physician Assistant | DX: Z96.651 Presence of right artificial knee joint (principal) ==

== ENCOUNTER → 2021-08-10 11:33 | Outpatient (BNVA) | payer MEDICARE, SELFPAY | PROVIDERS: PCP Nurse Practitioner Family; Visit Provider Physician Assistant | DX: Z47.1 Aftercare following joint replacement surgery (principal); Z96.651 Presence of right artificial knee joint | CPT/HCPCS: 99212 ==

== ENCOUNTER → 2021-08-17 12:22 | Outpatient (BNVA) | payer MEDICARE, SELFPAY | PROVIDERS: PCP Nurse Practitioner Family; Visit Provider Physician Assistant | DX: Z47.1 Aftercare following joint replacement surgery (principal); Z96.651 Presence of right artificial knee joint | CPT/HCPCS: 99212 ==

== ENCOUNTER → 2021-09-07 11:25 | Outpatient (BNVA) | payer MEDICARE, SELFPAY | PROVIDERS: PCP Nurse Practitioner Family; Visit Provider Physician Assistant | DX: Z47.1 Aftercare following joint replacement surgery (principal); Z96.651 Presence of right artificial knee joint | CPT/HCPCS: 99212 ==

== ENCOUNTER 2021-09-11 12:00 | Outpatient (REF) | payer MEDICARE, SELFPAY ==
[2021-09-11 14:00] LABS: Hematocrit 45.1 % (42.0-52.0); Hemoglobin 14.4 g/dl (14.0-18.0)
[2021-09-11 14:20] LABS: Alanine Aminotransferase 18 U/L (0-40); Alkaline Phosphatase 101 U/L (39-117); Anion Gap 12 (12-20); Aspartate Amino Transferase 15 U/L (5-37); Bilirubin Total 0.4 mg/dL (0.0-1.0); Blood Urea Nitrogen 15 mg/dL (9-16); Calcium 9.7 mg/dL (8.4-10.2); Carbon Dioxide 26 mmol/L (22-29); Chloride 109 mmol/L (96-108); Estimated Glomerular Filt Rate > 60; Glucose Random 76 mg/dL (60-115); Potassium 4.6 mmol/L (3.3-5.1); Sodium 142 mmol/L (135-145); Total Protein 6.4 g/dL (6.5-8.0)
[2021-09-11 14:42] LABS: Free T4 (Free Thyroxine) 1.15 ng/dL (0.71-1.85); Thyroid Stimulating Hormone 13.37 uIU/mL (0.32-4.0)
== END 2021-09-11 12:01 | disposition home or self-care (01) ==
LOC: HO.HMGCLDS 12:00
PROVIDERS: PCP Nurse Practitioner Family; Visit Provider Internal Medicine
DX: E03.9 Hypothyroidism, unspecified (principal); M85.80 Other specified disorders of bone density and structure, unspecified site
CPT/HCPCS: 36415; 80053; 84439; 84443; 85014; 85018

== ENCOUNTER → 2021-09-12 09:43 | Outpatient (BNVA) | payer MEDICARE, SELFPAY | PROVIDERS: PCP Nurse Practitioner Family; Visit Provider Internal Medicine | DX: M85.80 Other specified disorders of bone density and structure, unspecified site (principal); E21.3 Hyperparathyroidism, unspecified; E03.9 Hypothyroidism, unspecified; E55.9 Vitamin D deficiency, unspecified | CPT/HCPCS: Q3014 ==

== ENCOUNTER 2021-10-11 11:00 | Outpatient (RCR) | payer MEDICARE, SELFPAY ==
--- NOTE | 2021-10-11 12:22 | MHC.PT.DC ---
[facility] [place] [facility] [place] [facility] [place] [facility] [address] Mavis Shipman [address] [phone] F: [phone] F: [phone] F: [phone] F: [phone] Physical Therapy Discharge Report Diagnosis: R TKA Date of Surgery: 07/24/2021 Date of Evaluation: 08/16/21 Date of Discharge: 10/11/21 Treatments to Date: 13 Cancellations to Date: 3 No Shows to Date: 0 Discharge Status: Achieved Goals Improved Function Independent with HEP Discharge Summary: Pt has made good progress since start of care. He has made great progress towards his goals allowing him to meet each goal. He is however still demonstrating some impaired gait mechanics more so out of habit at times but is aware of this and trying to break this habit. 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 At this time max benefits of PT have been provided and skilled PT is no longer indicated at this time. Pt is in agreement with d/c today. Electronically signed by: Carmel Rowland, PT, DPT, ATC Please sign and return to therapist. Thank you for your referral.
== END 2021-10-11 12:22 | disposition home or self-care (01) ==
LOC: HO.PTCHIC 11:00
PROVIDERS: PCP Nurse Practitioner Family; Visit Provider Orthopaedic Surgery
DX: Z96.651 Presence of right artificial knee joint (principal)
CPT/HCPCS: 97110; 97112; 97162; 97530

== ENCOUNTER 2021-10-19 07:11 | Outpatient (REF) | payer MEDICARE, SELFPAY ==
--- NOTE | ~2021-10-19 | XR_ITS ---
EXAMINATION: KNEE X-RAY CLINICAL INFORMATION: Knee replacement COMPARISON: Previous x-ray July 2021 TECHNIQUE: Standing AP view of both knees and lateral sunrise view of the right knee FINDINGS: There is a right knee replacement in satisfactory position. No fracture or dislocation is seen. There is a joint effusion. There is soft tissue swelling anterior to the knee. There are surgical clips medial to the knee and in the lower leg. Standing AP view of the left knee is unremarkable. XR/XR knee standing BI IMPRESSION: Satisfactory appearance of right knee replacement. Joint effusion and soft tissue swelling anterior to the right knee.
--- NOTE | ~2021-10-19 | XR_ITS ---
EXAMINATION: KNEE X-RAY CLINICAL INFORMATION: Knee replacement COMPARISON: Previous x-ray July 2021 TECHNIQUE: Standing AP view of both knees and lateral sunrise view of the right knee FINDINGS: There is a right knee replacement in satisfactory position. No fracture or dislocation is seen. There is a joint effusion. There is soft tissue swelling anterior to the knee. There are surgical clips medial to the knee and in the lower leg. Standing AP view of the left knee is unremarkable. XR/XR knee RT 2V IMPRESSION: Satisfactory appearance of right knee replacement. Joint effusion and soft tissue swelling anterior to the right knee.
== END 2021-10-19 07:12 | disposition home or self-care (01) ==
LOC: HO.HOSX 07:11
PROVIDERS: Visit Provider Orthopaedic Surgery
DX: M25.561 Pain in right knee (principal)
CPT/HCPCS: 73560; 73565

== ENCOUNTER 2021-11-13 09:50 | Outpatient (REF) | payer MEDICARE, SELFPAY ==
[2021-11-13 11:25] LABS: MANUAL DIFF FLAG NO
[2021-11-13 11:36] LABS: Basophils Absolute Auto 0.1 X10*3/uL (0.0-0.2); Basophils Percent Auto 0.8 % (0-2); Eosinophils Absolute Auto 0.2 X10*3/uL (0.0-0.4); Hematocrit 53.7 % (42.0-52.0); Hemoglobin 17.4 g/dl (14.0-18.0); Imm Gran Abs Auto 0.02 X10*3/uL (0.00-0.03); Imm Gran Pct Auto 0.3 % (0.0-0.4); Lymphocytes Absolute Auto 1.6 X10*3/uL (1.2-4.9); Lymphocytes Percent Auto 26.3 % (20-40); Mean Corpuscular HGB Conc 32.4 g/dl (31.0-36.0); Mean Corpuscular Hemoglobin 29.6 pg (27.0-33.0); Mean Corpuscular Volume 91.3 fL (80.0-98.0); Monocytes Absolute Auto 0.5 X10*3/uL (0.1-1.2); Monocytes Percent Auto 8.4 % (2-11); Neutrophils Absolute Auto 3.6 x10*3/uL (2.0-8.3); Neutrophils Percent Auto 60.2 % (45-73); Platelet Count 203 X10*3/uL (160-400); Red Blood Count 5.88 X10*6/uL (4.60-5.80); Red Cell Distribution Width 13.7 % (11.0-16.0); White Blood Count 5.9 X10*3/uL (4.8-10.8)
[2021-11-13 11:42] LABS: Alanine Aminotransferase 15 U/L (0-40); Albumin Level 4.7 g/dL (3.5-5.0); Alkaline Phosphatase 105 U/L (39-117); Anion Gap 13 (12-20); Aspartate Amino Transferase 14 U/L (5-37); Bilirubin Total 0.8 mg/dL (0.0-1.0); Blood Urea Nitrogen 22 mg/dL (9-16); Calcium 9.8 mg/dL (8.4-10.2); Carbon Dioxide 25 mmol/L (22-29); Chloride 108 mmol/L (96-108); Estimated Glomerular Filt Rate > 60; Glucose Random 100 mg/dL (60-115); Phosphorus 4.3 mg/dL (2.7-4.5); Potassium 4.8 mmol/L (3.3-5.1); Sodium 141 mmol/L (135-145); Total Protein 7.3 g/dL (6.5-8.0)
[2021-11-13 12:01] LABS: Free T4 (Free Thyroxine) 1.22 ng/dL (0.71-1.85); Vitamin D 25-OH Total 34.8 ng/mL (>30)
[2021-11-14 12:36] LABS: PTHI 65 pg/mL (16-77)
== END 2021-11-13 09:51 | disposition home or self-care (01) ==
LOC: HO.HMGCLDS 09:50
PROVIDERS: Absent Provider Nurse Practitioner Family; PCP Nurse Practitioner Family; Visit Provider Internal Medicine
DX: Z01.818 Encounter for other preprocedural examination (principal); E55.9 Vitamin D deficiency, unspecified; E03.9 Hypothyroidism, unspecified; E21.3 Hyperparathyroidism, unspecified
CPT/HCPCS: 36415; 80053; 82306; 83970; 84100; 84439; 84443; 85025

== ENCOUNTER → 2021-11-16 09:43 | Outpatient (BNVA) | payer MEDICARE, SELFPAY | PROVIDERS: PCP Nurse Practitioner Family; Visit Provider Internal Medicine | DX: M85.80 Other specified disorders of bone density and structure, unspecified site (principal); E21.3 Hyperparathyroidism, unspecified; E03.9 Hypothyroidism, unspecified; E55.9 Vitamin D deficiency, unspecified | CPT/HCPCS: Q3014 ==

== ENCOUNTER → 2022-04-08 13:43 | Outpatient (BNVA) | payer MEDICARE, SELFPAY | PROVIDERS: PCP Nurse Practitioner Family; Visit Provider Physician Assistant | DX: Z01.818 Encounter for other preprocedural examination (principal); I25.10 Atherosclerotic heart disease of native coronary artery without angina pectoris; Z79.01 Long term (current) use of anticoagulants; Z79.02 Long term (current) use of antithrombotics/antiplatelets; Z95.810 Presence of automatic (implantable) cardiac defibrillator | CPT/HCPCS: 99202 ==

== ENCOUNTER 2022-04-10 09:05 | Outpatient (REF) | payer MEDICARE, SELFPAY | END 2022-04-10 09:06 | disposition home or self-care (01) | LOC: HO.SH 09:05 | PROVIDERS: Visit Provider Nurse Practitioner Family | DX: H90.3 Sensorineural hearing loss, bilateral (principal) | CPT/HCPCS: 92557 ==

== ENCOUNTER → 2022-05-20 11:39 | Outpatient (BNVA) | payer MEDICARE, SELFPAY | PROVIDERS: PCP Nurse Practitioner Family; Visit Provider Internal Medicine | DX: M85.80 Other specified disorders of bone density and structure, unspecified site (principal); E21.3 Hyperparathyroidism, unspecified; E03.9 Hypothyroidism, unspecified; E55.9 Vitamin D deficiency, unspecified | CPT/HCPCS: 99212 ==

== ENCOUNTER 2022-06-03 10:12 | Outpatient (REF) | payer MEDICARE, SELFPAY ==
[2022-06-03 12:50] LABS: Alanine Aminotransferase 16 U/L (0-40); Albumin Level 4.4 g/dL (3.5-5.0); Alkaline Phosphatase 87 U/L (39-117); Anion Gap 13 (12-20); Aspartate Amino Transferase 17 U/L (5-37); Bilirubin Total 0.9 mg/dL (0.0-1.0); Blood Urea Nitrogen 8 mg/dL (9-16); Calcium 9.8 mg/dL (8.4-10.2); Carbon Dioxide 26 mmol/L (22-29); Chloride 110 mmol/L (96-108); Estimated Glomerular Filt Rate > 60; Glucose Random 91 mg/dL (60-115); Phosphorus 3.1 mg/dL (2.7-4.5); Potassium 4.8 mmol/L (3.3-5.1); Sodium 144 mmol/L (135-145); Total Protein 6.8 g/dL (6.5-8.0)
[2022-06-03 12:52] LABS: Free T4 (Free Thyroxine) 1.27 ng/dL (0.71-1.85); Thyroid Stimulating Hormone 3.98 uIU/mL (0.32-4.0); Vitamin D 25-OH Total 29.5 ng/mL (>30)
[2022-06-04 17:59] LABS: Calcium (PTHI) 9.8 mg/dL (8.6-10.3); PTHI 110 pg/mL (16-77)
== END 2022-06-03 10:13 | disposition home or self-care (01) ==
LOC: HO.HMGCLDS 10:12
PROVIDERS: Visit Provider Internal Medicine
DX: E03.9 Hypothyroidism, unspecified (principal); E55.9 Vitamin D deficiency, unspecified; E21.3 Hyperparathyroidism, unspecified
CPT/HCPCS: 36415; 80053; 82306; 83970; 84100; 84439; 84443

== ENCOUNTER 2022-07-25 12:41 | Outpatient (REF) | payer MEDICARE, SELFPAY ==
[2022-07-25 14:53] LABS: Free T4 (Free Thyroxine) 1.21 ng/dL (0.71-1.85); Thyroid Stimulating Hormone 1.23 uIU/mL (0.32-4.0)
== END 2022-07-25 12:42 | disposition home or self-care (01) ==
LOC: HO.HMGCLDS 12:41
PROVIDERS: PCP Nurse Practitioner Family; Visit Provider Internal Medicine
DX: E03.9 Hypothyroidism, unspecified (principal)
CPT/HCPCS: 36415; 84439; 84443

== ENCOUNTER → 2022-07-31 10:34 | Outpatient (BNVA) | payer MEDICARE, SELFPAY | PROVIDERS: PCP Nurse Practitioner Family; Visit Provider Internal Medicine ==

== ENCOUNTER 2022-07-31 11:00 | Emergency (ER) | payer MEDICARE, SELFPAY ==
--- NOTE | ~2022-07-31 | XR_ITS ---
EXAMINATION: XR CHEST CLINICAL INFORMATION: SOB. COMPARISON: CT chest 04/15/2019. TECHNIQUE: Frontal view of the chest was obtained. FINDINGS: The lungs are well-expanded with platelike atelectasis or scarring left midlung and right middle lobe. No acute consolidation. The heart size and pulmonary vascularity is normal. Is evidence of previous CABG no gross bony abnormality seen. Minimal blunting of left CP angle likely chronic chronic pleural thickening or small pleural effusion. This was present on 04/15/2019 CT chest exam XR/XR chest 1V IMPRESSION: 1. Platelike atelectasis or scarring left midlung and right middle lobe. 2. Minimal blunting of left CP angle likely chronic pleural thickening or small pleural effusion.
--- NOTE | 2022-07-31 11:20 | ED.GENADULT ---
HPI - General Adult General Chief complaint: General Medical <WALESKA Le - Last Filed: 07/31/22 11:26> Stated complaint: LBP sent from endocrinology <WALESKA Le - Last Filed: 07/31/22 11:26> Time Seen by Provider: 07/31/22 11:48 <WALESKA Le - Last Filed: 07/31/22 11:26> Source: patient <Jamie Gilmore MD - Last Filed: 07/31/22 14:32> Mode of arrival: ambulatory <Jamie Gilmore MD - Last Filed: 07/31/22 14:32> Limitations: no limitations <Jamie Gilmore MD - Last Filed: 07/31/22 14:32> History of Present Illness HPI narrative: 72 yo male with history of ischemic cardiomyopathy s/p AICD 2007, hx multiple cardiac arrests s/p multiple bypasses, FLÉIX on CPAP, hx Torsades, GERD, hypothyroidism who presents to the ER from Endocrinology office for evaluation of low blood pressure, 85/50. He took his BP meds this morning. He denies dizziness, weakness. He was reporting some mild SOB but otherwise no symptoms. Usual BP 120/70s. Patient feel well but has slight fatigue. Patient went to see the management analyst and his thyroid is doing well. He sees [place] nanny caregiver . <Jamie Gilmore MD - Last Filed: 07/31/22 14:32> Severity: mild <Jamie Gilmore MD - Last Filed: 07/31/22 14:32> Exacerbating factors: none <Jamie Gilmore MD - Last Filed: 07/31/22 14:32> Associated symptoms: denies other symptoms <Jamie Gilmore MD - Last Filed: 07/31/22 14:32> Related Data Home medications: Home Medications Medication Instructions Recorded Confirmed clopidogrel 75 mg tablet 75 mg PO DAILY 02/07/20 07/31/22 amiodarone 200 mg tablet 200 mg PO DAILY 05/29/21 07/31/22 ascorbate calcium (vitamin C) 500 500 mg PO DAILY 07/04/21 07/31/22 mg tablet sacubitril 97 mg-valsartan 103 mg 1 tab PO BID 07/12/21 07/31/22 tablet (Entresto) spironolactone 25 mg tablet 12.5 mg PO DAILY 07/12/21 07/31/22 vit C 250 mg-vit E 90 mg-zinc 40 1 tab PO BID 07/12/21 07/31/22 mg-copper 1 [id number] capsule (PreserVision AREDS-2) Previous Rx's Medication Instructions Recorded diphenhydramine HCl 25 mg capsule 25 mg PO BEDTIME PRN sleep #20 caps 06/22/21 (Benadryl) walker #1 ea 07/04/21 acetaminophen 325 mg tablet 650 mg PO Q6H PRN Pain, Mild (Pain 07/26/21 Scale 1-3) 30 days #240 tabs nitroglycerin 0.4 mg sublingual 0.4 mg sublingual Q5M PRN chest 08/01/21 tablet (Nitrostat) pain 30 days #90 tabs cholecalciferol (vitamin D3) 50 50 mcg PO DAILY #90 caps 11/16/21 mcg (2,000 unit) capsule (D3-2000) isosorbide mononitrate 60 mg 60 mg PO DAILY #90 tabs 01/23/22 tablet,extended release 24 hr rosuvastatin 40 mg tablet 40 mg PO DAILY #90 tabs 04/22/22 apixaban 5 mg tablet (Eliquis) 5 mg PO BID #180 tabs 05/09/22 pantoprazole 40 mg tablet,delayed 40 mg PO DAILY #90 tabs 05/13/22 release levothyroxine 200 mcg tablet 200 mcg PO DAILY 30 days #30 tabs 06/13/22 paroxetine HCl 20 mg tablet 30 mg PO QAM #90 tabs 06/17/22 potassium chloride 20 mEq 20 meq PO BID #180 tabs 06/21/22 tablet,extended release trazodone 100 mg tablet 100 mg PO BEDTIME sleep 90 days 07/21/22 #90 tabs ezetimibe 10 mg tablet 10 mg PO BEDTIME #90 tabs 07/29/22 metoprolol succinate 50 mg 50 mg PO DAILY #90 tabs 07/29/22 tablet,extended release 24 hr (Toprol XL) <WALESKA Le - Last Filed: 07/31/22 11:26> Allergies/adverse reactions: Allergies Allergy/AdvReac Type Severity Reaction Status Date / Time Penicillins [PENICILLINS] Allergy Intermediate ITCHY RASH Verified 07/31/22 13:41 <WALESKA Le - Last Filed: 07/31/22 11:26> Review of Systems Review of Systems: Yes all other systems are reviewed and are negative <Jamie Gilmore MD - Last Filed: 07/31/22 14:32> [facility] Past Medical History Medical History: Medical History CAD (coronary artery disease) Carpal tunnel syndrome of left wrist Depression Familial hypocalciuric hypercalcemia History of blood transfusion HTN (hypertension) Hyperparathyroidism Hypotension Hypothyroidism Ischemic cardiomyopathy Left carpal tunnel syndrome FÉLIX (obstructive sleep apnea) Osteopenia Paroxysmal atrial fibrillation PTSD (post-traumatic stress disorder) Pulmonary nodule Severe obstructive sleep apnea Vitamin D deficiency <WALESKA Le - Last Filed: 07/31/22 11:26> Surgical History: Surgical History AICD (automatic cardioverter/defibrillator) present History of AAA (abdominal aortic aneurysm) repair Hx of appendectomy Hx of cataract Hx of colonoscopy Hx of discectomy Hx of tonsillectomy Hx of total knee replacement S/P CABG x 6 <WALESKA Le - Last Filed: 07/31/22 11:26> Family History Family History: Family History Father CAD (coronary artery disease) Mother CVA (cerebral vascular accident) <WALESKA Le - Last Filed: 07/31/22 11:26> Social History Social History: Social History Household Members: Significant Other Housing: House Are you a primary adult daycare coordinator to a significant other at home: No Do you presently have visiting nurse or other home services: No Alcohol intake: unknown Patient Tobacco Use Status: Former Tobacco user Quit Date: Tobacco use type: Cigarette Smoked in Last 30 Days: No e-Cigarette/Vaping Use: Never Used Use of substances other than those prescribed or required for medical reasons: Unknown Advance Directives: Yes Advance Directives on File: Yes Advance Directives Date on File: 07/27/21 service: No Current occupational status: retired Cognitive needs: No Hearing needs: No Vision needs: No <WALESKA Le - Last Filed: 07/31/22 11:26> Physical Exam ED Vital Signs: Vital Signs - 24 hr 07/31/22 11:21 07/31/22 11:34 07/31/22 13:12 Temperature 98 F 98.2 F 98.2 F Pulse Rate 41 L 42 L 40 L Respiratory Rate 19 13 13 Blood Pressure 100/53 L 93/61 93/58 L Pulse Oximetry 98 97 97 Oxygen Delivery Method Room Air Room Air 07/31/22 13:55 07/31/22 13:57 07/31/22 13:59 Temperature Pulse Rate 43 L 43 L 43 L Respiratory Rate Blood Pressure 100/60 110/65 117/62 Pulse Oximetry Oxygen Delivery Method BMI result Body Mass Index 29.6 <WALESKA Le - Last Filed: 07/31/22 11:26> Vital Signs - 24 hr 07/31/22 11:21 07/31/22 11:34 07/31/22 13:12 Temperature 98 F 98.2 F 98.2 F Pulse Rate 41 L 42 L 40 L Respiratory Rate 19 13 13 Blood Pressure 100/53 L 93/61 93/58 L Pulse Oximetry 98 97 97 Oxygen Delivery Method Room Air Room Air 07/31/22 13:55 07/31/22 13:57 07/31/22 13:59 Temperature Pulse Rate 43 L 43 L 43 L Respiratory Rate Blood Pressure 100/60 110/65 117/62 Pulse Oximetry Oxygen Delivery Method BMI result Body Mass Index 29.6 <Jamie Gilmore MD - Last Filed: 07/31/22 14:32> Const General: healthy appearing <Jamie Gilmore MD - Last Filed: 07/31/22 14:32> Nutritional Appearance: average body habitus <Jamie Gilmore MD - Last Filed: 07/31/22 14:32> Orientation/consciousness: oriented to person and patient oriented x3 <Jamie Gilmore MD - Last Filed: 07/31/22 14:32> Limitations: no limitations <Jamie Gilmore MD - Last Filed: 07/31/22 14:32> HENMT Head: Yes normal to inspection <Jamie Gilmore MD - Last Filed: 07/31/22 14:32> Ears: external ears normal <Jamie Gilmore MD - Last Filed: 07/31/22 14:32> General nose exam: Normal external nose present <Jamie Gilmore MD - Last Filed: 07/31/22 14:32> Mouth: Normal oral and palatal mucosa present and oropharynx normal <Jamie Gilmore MD - Last Filed: 07/31/22 14:32> Throat: Yes posterior oropharynx normal <Jamie Gilmore MD - Last Filed: 07/31/22 14:32> Eyes General: appearance normal, both eyes and all related structures <Jamie Gilmore MD - Last Filed: 07/31/22 14:32> Neck Neck: Yes normal visual inspection <Jamie Gilmore MD - Last Filed: 07/31/22 14:32> Chest Chest palpation & inspection: normal inspection of the chest <Jamie Gilmore MD - Last Filed: 07/31/22 14:32> Resp Auscultation: clear to auscultation bilaterally <Jamie Gilmore MD - Last Filed: 07/31/22 14:32> Cardio Jugular venous distension: no JVD <Jamie Gilmore MD - Last Filed: 07/31/22 14:32> Rate: regular rate <Jamie Gilmore MD - Last Filed: 07/31/22 14:32> Rhythm: regular rhythm <Jamie Gilmore MD - Last Filed: 07/31/22 14:32> Heart sounds: S1 normal heart sound present and S2 normal heart sound present <Jamie Gilmore MD - Last Filed: 07/31/22 14:32> GI Inspection: Yes normal to inspection <Jamie Gilmore MD - Last Filed: 07/31/22 14:32> Palpation (GI): Soft to palpation, nontender and No hepatosplenomegaly present <Jamie Gilmore MD - Last Filed: 07/31/22 14:32> Auscultation: normal bowel sounds <Jamie Gilmore MD - Last Filed: 07/31/22 14:32> General: Yes no CVA tenderness <Jamie Gilmore MD - Last Filed: 07/31/22 14:32> Back/Spine/Pelvis Back: no CVA tenderness <Jamie Gilmore MD - Last Filed: 07/31/22 14:32> Skin General skin exam: no rashes or lesions noted <Jamie Gilmore MD - Last Filed: 07/31/22 14:32> Neuro General: oriented to person and patient oriented x3 <Jamie Gilmore MD - Last Filed: 07/31/22 14:32> Cranial nerves: Yes CN's II-XII intact bilaterally <Jamie Gilmore MD - Last Filed: 07/31/22 14:32> Motor exam (neuro): 5/5 motor strength present throughout <Jamie Gilmore MD - Last Filed: 07/31/22 14:32> Extrem General: Yes normal to inspection <Jamie Gilmore MD - Last Filed: 07/31/22 14:32> Psych Appearance: grossly normal <Jamie Gilmore MD - Last Filed: 07/31/22 14:32> Course Course Course Narrative: RME - 72 yo male with history of ischemic cardiomyopathy s/p AICD 2007, hx multiple cardiac arrests s/p multiple bypasses, FÉLIX on CPAP, hx Torsades, GERD, hypothyroidism who presents to the ER from Endocrinology office for evaluation of low blood pressure, 85/50. He took his BP meds this morning. He denies dizziness, weakness. He was reporting some mild SOB but otherwise no symptoms. Usual BP 120/70s. BP 100/53 with HR 41. No history of bradycardia in the past. Plan: EKG, lab workup and CXR <WALESKA Le - Last Filed: 07/31/22 11:26> Reevaluation(s) Reevaluation #1: if patient feels well and not orthostatic he can go home according to his rouge sifter and miller <Jamie Gilmore MD - Last Filed: 07/31/22 14:32> Time: 13:49 <Jamie Gilmore MD - Last Filed: 07/31/22 14:32> Reevaluation #2: Patient ambulated well <Jamie Gilmore MD - Last Filed: 07/31/22 14:32> Time: 14:29 <Jamie Gilmore MD - Last Filed: 07/31/22 14:32> Medical Decision Making Differential Diagnosis Differential Diagnoses: The differential diagnosis associated with the presentation includes (bradycardia, hypotension, pacemaker failure, medication side effect) <Jamie Gilmore MD - Last Filed: 07/31/22 14:32> Admission/Observation Consideration of admission/observation: Escalation of care including admission/observation considered (in a 72 yo male with severe cardiac history, who presents with bradycardia and hypotension, admission was considered) <Jamie Gilmore MD - Last Filed: 07/31/22 14:32> Consult Healthcare Provider Management of the patient was discussed with: Enterprise Business Architect (His rouge sifter and miller from [facility] states that his defibrillator is set for 40, if he can get up without dropping his BP he can go home) <Jamie Gilmore MD - Last Filed: 07/31/22 14:32> Lab Data MDM Lab Attestation statement: I reviewed the patient's lab results. <Jamie Gilmore MD - Last Filed: 07/31/22 14:32> Result Diagrams: 07/31/22 11:46 07/31/22 11:46 <WALESKA Le - Last Filed: 07/31/22 11:26> Labs: Lab Results 07/31/22 07/31/22 07/31/22 Range/Units 11:46 11:46 11:46 WBC 6.4 (4.8-10.8) X10*3/uL RBC 5.19 (4.60-5.80) X10*6/uL Hgb 16.0 (14.0-18.0) g/dl Hct 48.9 (42.0-52.0) % MCV 94.2 (80.0-98.0) fL MCH 30.8 (27.0-33.0) pg MCHC 32.7 (31.0-36.0) g/dl RDW 13.8 (11.0-16.0) % Plt Count 206 (160-400) X10*3/uL MPV 10.1 (9.4-12.4) fL Immature Gran % (Auto) 0.3 (0.0-0.4) % Neut % (Auto) 64.3 (45-73) % Lymph % (Auto) 21.7 (20-40) % [place] % (Auto) 9.0 (2-11) % Eos % (Auto) 3.9 (0-4) % Baso % (Auto) 0.8 (0-2) % Lymph # (Auto) 1.4 (1.2-4.9) X10*3/uL [place] # (Auto) 0.6 (0.1-1.2) X10*3/uL Eos # (Auto) 0.3 (0.0-0.4) X10*3/uL Baso # (Auto) 0.1 (0.0-0.2) X10*3/uL Abs Immat Gran (auto) 0.02 (0.00-0.03) X10*3/uL Absolute Neuts (auto) 4.1 (2.0-8.3) x10*3/uL Absolute Nucleated RBC 0.000 (0.0-0.012) X10*3/uL Nucleated RBC % (auto) 0.0 (0.0-0.2) /100WBC Sodium 145 (135-145) mmol/L Potassium 4.0 (3.3-5.1) mmol/L Chloride 110 H (96-108) mmol/L Carbon Dioxide 26 (22-29) mmol/L Anion Gap 13 (12-20) BUN 9 (9-16) mg/dL Creatinine 0.90 (0.5-1.4) mg/dL Estim Creat Clear Calc 87.7 Estimated GFR > 60 Random Glucose 84 (60-115) mg/dL Calcium 9.0 D (8.4-10.2) mg/dL Magnesium 2.2 (1.6-2.6) mg/dL Total Bilirubin 0.8 (0.0-1.0) mg/dL Direct Bilirubin 0.2 (0.0-0.5) mg/dL AST 15 (5-37) U/L ALT 14 (0-40) U/L Alkaline Phosphatase 69 (39-117) U/L Troponin I High Sens 5.1 (<3.5-35.0) ng/L B-Natriuretic Peptide (<100) pg/mL Total Protein 6.3 L (6.5-8.0) g/dL Albumin 4.0 (3.5-5.0) g/dL Urine Color Urine Appearance Urine pH (5.0-9.0) Ur Specific [place] (1.005-1.025) Urine Protein (Neg-Trace) mg/dL Urine Glucose (UA) (Negative) mg/dL Urine Ketones (Negative) mg/dL Urine Blood (Negative) Urine Nitrite (Negative) Ur Leukocyte Esterase (Negative) Urine RBC (0-2) /HPF Urine WBC (0-5) /HPF Ur Squamous Epith Cells (0-2) /HPF Urine Bacteria (None Seen) Hyaline Casts (0-2) /LPF COVID-19 (HITESH) (Negative) COVID-19 Clin Com 07/31/22 07/31/22 07/31/22 Range/Units 11:46 11:46 12:02 WBC (4.8-10.8) X10*3/uL RBC (4.60-5.80) X10*6/uL Hgb (14.0-18.0) g/dl Hct (42.0-52.0) % MCV (80.0-98.0) fL MCH (27.0-33.0) pg MCHC (31.0-36.0) g/dl RDW (11.0-16.0) % Plt Count (160-400) X10*3/uL MPV (9.4-12.4) fL Immature Gran % (Auto) (0.0-0.4) % Neut % (Auto) (45-73) % Lymph % (Auto) (20-40) % [place] % (Auto) (2-11) % Eos % (Auto) (0-4) % Baso % (Auto) (0-2) % Lymph # (Auto) (1.2-4.9) X10*3/uL [place] # (Auto) (0.1-1.2) X10*3/uL Eos # (Auto) (0.0-0.4) X10*3/uL Baso # (Auto) (0.0-0.2) X10*3/uL Abs Immat Gran (auto) (0.00-0.03) X10*3/uL Absolute Neuts (auto) (2.0-8.3) x10*3/uL Absolute Nucleated RBC (0.0-0.012) X10*3/uL Nucleated RBC % (auto) (0.0-0.2) /100WBC Sodium (135-145) mmol/L Potassium (3.3-5.1) mmol/L Chloride (96-108) mmol/L Carbon Dioxide (22-29) mmol/L Anion Gap (12-20) BUN (9-16) mg/dL Creatinine (0.5-1.4) mg/dL Estim Creat Clear Calc Estimated GFR Random Glucose (60-115) mg/dL Calcium (8.4-10.2) mg/dL Magnesium (1.6-2.6) mg/dL Total Bilirubin (0.0-1.0) mg/dL Direct Bilirubin (0.0-0.5) mg/dL AST (5-37) U/L ALT (0-40) U/L Alkaline Phosphatase (39-117) U/L Troponin I High Sens (<3.5-35.0) ng/L B-Natriuretic Peptide 276 H (<100) pg/mL Total Protein (6.5-8.0) g/dL Albumin (3.5-5.0) g/dL Urine Color Dark Yellow Urine Appearance Clear Urine pH 5.5 (5.0-9.0) Ur Specific [place] 1.020 (1.005-1.025) Urine Protein Trace (Neg-Trace) mg/dL Urine Glucose (UA) Negative (Negative) mg/dL Urine Ketones Trace (Negative) mg/dL Urine Blood Negative (Negative) Urine Nitrite Negative (Negative) Ur Leukocyte Esterase Trace H (Negative) Urine RBC 0-2 (0-2) /HPF Urine WBC 0-5 (0-5) /HPF Ur Squamous Epith Cells 0-2 (0-2) /HPF Urine Bacteria None Seen (None Seen) Hyaline Casts 0-2 (0-2) /LPF COVID-19 (HITESH) Negative (Negative) COVID-19 Clin Com See Note <WALESKA Le - Last Filed: 07/31/22 11:26> Lab Results 07/31/22 07/31/22 07/31/22 Range/Units 11:46 11:46 11:46 WBC 6.4 (4.8-10.8) X10*3/uL RBC 5.19 (4.60-5.80) X10*6/uL Hgb 16.0 (14.0-18.0) g/dl Hct 48.9 (42.0-52.0) % MCV 94.2 (80.0-98.0) fL MCH 30.8 (27.0-33.0) pg MCHC 32.7 (31.0-36.0) g/dl RDW 13.8 (11.0-16.0) % Plt Count 206 (160-400) X10*3/uL MPV 10.1 (9.4-12.4) fL Immature Gran % (Auto) 0.3 (0.0-0.4) % Neut % (Auto) 64.3 (45-73) % Lymph % (Auto) 21.7 (20-40) % [place] % (Auto) 9.0 (2-11) % Eos % (Auto) 3.9 (0-4) % Baso % (Auto) 0.8 (0-2) % Lymph # (Auto) 1.4 (1.2-4.9) X10*3/uL [place] # (Auto) 0.6 (0.1-1.2) X10*3/uL Eos # (Auto) 0.3 (0.0-0.4) X10*3/uL Baso # (Auto) 0.1 (0.0-0.2) X10*3/uL Abs Immat Gran (auto) 0.02 (0.00-0.03) X10*3/uL Absolute Neuts (auto) 4.1 (2.0-8.3) x10*3/uL Absolute Nucleated RBC 0.000 (0.0-0.012) X10*3/uL Nucleated RBC % (auto) 0.0 (0.0-0.2) /100WBC Sodium 145 (135-145) mmol/L Potassium 4.0 (3.3-5.1) mmol/L Chloride 110 H (96-108) mmol/L Carbon Dioxide 26 (22-29) mmol/L Anion Gap 13 (12-20) BUN 9 (9-16) mg/dL Creatinine 0.90 (0.5-1.4) mg/dL Estim Creat Clear Calc 87.7 Estimated GFR > 60 Random Glucose 84 (60-115) mg/dL Calcium 9.0 D (8.4-10.2) mg/dL Magnesium 2.2 (1.6-2.6) mg/dL Total Bilirubin 0.8 (0.0-1.0) mg/dL Direct Bilirubin 0.2 (0.0-0.5) mg/dL AST 15 (5-37) U/L ALT 14 (0-40) U/L Alkaline Phosphatase 69 (39-117) U/L Troponin I High Sens 5.1 (<3.5-35.0) ng/L B-Natriuretic Peptide (<100) pg/mL Total Protein 6.3 L (6.5-8.0) g/dL Albumin 4.0 (3.5-5.0) g/dL Urine Color Urine Appearance Urine pH (5.0-9.0) Ur Specific [place] (1.005-1.025) Urine Protein (Neg-Trace) mg/dL Urine Glucose (UA) (Negative) mg/dL Urine Ketones (Negative) mg/dL Urine Blood (Negative) Urine Nitrite (Negative) Ur Leukocyte Esterase (Negative) Urine RBC (0-2) /HPF Urine WBC (0-5) /HPF Ur Squamous Epith Cells (0-2) /HPF Urine Bacteria (None Seen) Hyaline Casts (0-2) /LPF COVID-19 (HITESH) (Negative) COVID-19 Clin Com 07/31/22 07/31/22 07/31/22 Range/Units 11:46 11:46 12:02 WBC (4.8-10.8) X10*3/uL RBC (4.60-5.80) X10*6/uL Hgb (14.0-18.0) g/dl Hct (42.0-52.0) % MCV (80.0-98.0) fL MCH (27.0-33.0) pg MCHC (31.0-36.0) g/dl RDW (11.0-16.0) % Plt Count (160-400) X10*3/uL MPV (9.4-12.4) fL Immature Gran % (Auto) (0.0-0.4) % Neut % (Auto) (45-73) % Lymph % (Auto) (20-40) % [place] % (Auto) (2-11) % Eos % (Auto) (0-4) % Baso % (Auto) (0-2) % Lymph # (Auto) (1.2-4.9) X10*3/uL [place] # (Auto) (0.1-1.2) X10*3/uL Eos # (Auto) (0.0-0.4) X10*3/uL Baso # (Auto) (0.0-0.2) X10*3/uL Abs Immat Gran (auto) (0.00-0.03) X10*3/uL Absolute Neuts (auto) (2.0-8.3) x10*3/uL Absolute Nucleated RBC (0.0-0.012) X10*3/uL Nucleated RBC % (auto) (0.0-0.2) /100WBC Sodium (135-145) mmol/L Potassium (3.3-5.1) mmol/L Chloride (96-108) mmol/L Carbon Dioxide (22-29) mmol/L Anion Gap (12-20) BUN (9-16) mg/dL Creatinine (0.5-1.4) mg/dL Estim Creat Clear Calc Estimated GFR Random Glucose (60-115) mg/dL Calcium (8.4-10.2) mg/dL Magnesium (1.6-2.6) mg/dL Total Bilirubin (0.0-1.0) mg/dL Direct Bilirubin (0.0-0.5) mg/dL AST (5-37) U/L ALT (0-40) U/L Alkaline Phosphatase (39-117) U/L Troponin I High Sens (<3.5-35.0) ng/L B-Natriuretic Peptide 276 H (<100) pg/mL Total Protein (6.5-8.0) g/dL Albumin (3.5-5.0) g/dL Urine Color Dark Yellow Urine Appearance Clear Urine pH 5.5 (5.0-9.0) Ur Specific [place] 1.020 (1.005-1.025) Urine Protein Trace (Neg-Trace) mg/dL Urine Glucose (UA) Negative (Negative) mg/dL Urine Ketones Trace (Negative) mg/dL Urine Blood Negative (Negative) Urine Nitrite Negative (Negative) Ur Leukocyte Esterase Trace H (Negative) Urine RBC 0-2 (0-2) /HPF Urine WBC 0-5 (0-5) /HPF Ur Squamous Epith Cells 0-2 (0-2) /HPF Urine Bacteria None Seen (None Seen) Hyaline Casts 0-2 (0-2) /LPF COVID-19 (HITESH) Negative (Negative) COVID-19 Clin Com See Note <Jamei Gilmore MD - Last Filed: 07/31/22 14:32> Independent Interpretation I performed an independent interpretation of an: EKG (sinus 42, RBBB, no st or twave changes) <Jamie Gilmore MD - Last Filed: 07/31/22 14:32> Discharge Plan Discharge Clinical Impression: Bradycardia, Low blood pressure <WALESKA Le - Last Filed: 07/31/22 11:26> Patient Disposition: Home, Self-Care <WALESKA Le - Last Filed: 07/31/22 11:26> Instructions: Hypotension (ED) <WALESKA Le - Last Filed: 07/31/22 11:26> Additional Instructions: Call [facility] today <WALESKA Le - Last Filed: 07/31/22 11:26> Prescriptions: No Action (DME) walker [facility] [place] See Rx Instructions .MEDSUPPLY Qty: 1 0RF Rx Instructions: Folding Front wheeled walker nitroglycerin [Nitrostat] 0.4 mg tablet, sublingual 0.4 mg sublingual Q5M PRN (Reason: chest pain) 30 Days Qty: 90 1RF Rx Instructions: do not exceed 3 doses per episode isosorbide mononitrate 60 mg tablet extended release 24 hr 60 mg PO DAILY Qty: 90 0RF rosuvastatin 40 mg tablet 40 mg PO DAILY Qty: 90 2RF Eliquis 5 mg tablet 5 mg PO BID Qty: 180 1RF pantoprazole 40 mg tablet,delayed release (DR/EC) 40 mg PO DAILY Qty: 90 1RF levothyroxine 200 mcg tablet 200 mcg PO DAILY 30 Days Qty: 30 3RF paroxetine HCl 20 mg tablet 30 mg PO QAM Qty: 90 0RF potassium chloride 20 mEq tablet extended release 20 meq PO BID Qty: 180 0RF trazodone 100 mg tablet 100 mg PO BEDTIME 90 Days Qty: 90 0RF ezetimibe 10 mg tablet 10 mg PO BEDTIME Qty: 90 1RF metoprolol succinate [Toprol XL] 50 mg tablet extended release 24 hr 50 mg PO DAILY Qty: 90 1RF PreserVision AREDS-2 250-90-40-1 mg Capsule 1 tab PO BID Entresto 97-103 mg tablet 1 tab PO BID spironolactone 25 mg tablet 12.5 mg PO DAILY acetaminophen 325 mg Tablet 650 mg PO Q6H PRN (Reason: Pain, Mild (Pain Scale 1-3)) 30 Days Qty: 240 0RF clopidogrel 75 mg tablet 75 mg PO DAILY ascorbate calcium (vitamin C) 500 mg tablet 500 mg PO DAILY amiodarone 200 mg tablet 200 mg PO DAILY diphenhydramine HCl [Benadryl] 25 mg capsule 25 mg PO BEDTIME PRN (Reason: sleep) Qty: 20 0RF cholecalciferol (vitamin D3) [D3-2000] 50 mcg (2,000 unit) capsule 50 mcg PO DAILY Qty: 90 11RF <WALESKA Le - Last Filed: 07/31/22 11:26> Referrals: Ezra Denney, [employer]- [Primary Care Provider] - 3 days <WALESKA Le - Last Filed: 07/31/22 11:26>
[2022-07-31 11:21] VITALS: BP 100/53; PULSE 41; RESP 19; TEMP 36.6; O2SAT 98; BMI 29.6
--- NOTE | 2022-07-31 11:25 | ECG_ITS ---
Test Reason : low bp,low hr Blood Pressure : / mmHG Vent. Rate : 041 BPM Atrial Rate : 041 BPM P-R Int : 138 ms QRS Dur : 160 ms QT Int : 554 ms P-R-T Axes : 020 -59 120 degrees QTc Int : 457 ms Marked sinus bradycardia Left axis deviation Right bundle branch block Left ventricular hypertrophy with repolarization abnormality ( R in aVL ) Lateral infarct , age undetermined Abnormal ECG When compared with ECG of 24-JUL-2003 06:28, No significant changes seen Referred By: Corrie Stubbs Electronically Signed By:JULIA HARGROVE
[2022-07-31 11:34] VITALS: BP 93/61; PULSE 42; RESP 13; TEMP 36.8; O2SAT 97
--- NOTE | 2022-07-31 11:42 | PC.NURSE ---
Patient AOx 4 neuros intact HR 42 vague complaint of chest pain once he heard his BP was low denies SOB or respiratory distress. IV access obtained x 2 labs collected and sent patient resting comfortably will CTM
--- NOTE | 2022-07-31 11:44 | PC.NURSE ---
Patietn Sinus adenike on press writer will CTM
[2022-07-31 11:51] LABS: MANUAL DIFF FLAG NO
[2022-07-31 12:00] LABS: Basophils Absolute Auto 0.1 X10*3/uL (0.0-0.2); Basophils Percent Auto 0.8 % (0-2); Eosinophils Absolute Auto 0.3 X10*3/uL (0.0-0.4); Eosinophils Percent Auto 3.9 % (0-4); Hematocrit 48.9 % (42.0-52.0); Imm Gran Abs Auto 0.02 X10*3/uL (0.00-0.03); Imm Gran Pct Auto 0.3 % (0.0-0.4); Lymphocytes Absolute Auto 1.4 X10*3/uL (1.2-4.9); Lymphocytes Percent Auto 21.7 % (20-40); Mean Corpuscular HGB Conc 32.7 g/dl (31.0-36.0); Mean Corpuscular Hemoglobin 30.8 pg (27.0-33.0); Mean Corpuscular Volume 94.2 fL (80.0-98.0); Mean Platelet Volume 10.1 fL (9.4-12.4); Monocytes Absolute Auto 0.6 X10*3/uL (0.1-1.2); Neutrophils Absolute Auto 4.1 x10*3/uL (2.0-8.3); Neutrophils Percent Auto 64.3 % (45-73); Platelet Count 206 X10*3/uL (160-400); Red Blood Count 5.19 X10*6/uL (4.60-5.80); Red Cell Distribution Width 13.8 % (11.0-16.0); White Blood Count 6.4 X10*3/uL (4.8-10.8)
[2022-07-31 12:06] LABS: COVID-19 Test Negative (Negative); IDNOW Serial# 6674DD1D
[2022-07-31 12:09] LABS: Alanine Aminotransferase 14 U/L (0-40); Alkaline Phosphatase 69 U/L (39-117); Anion Gap 13 (12-20); Aspartate Amino Transferase 15 U/L (5-37); Bilirubin Direct 0.2 mg/dL (0.0-0.5); Bilirubin Total 0.8 mg/dL (0.0-1.0); Blood Urea Nitrogen 9 mg/dL (9-16); Carbon Dioxide 26 mmol/L (22-29); Chloride 110 mmol/L (96-108); Creatinine Clr Calc Pharmacy 87.7; Estimated Glomerular Filt Rate > 60; Glucose Random 84 mg/dL (60-115); Magnesium 2.2 mg/dL (1.6-2.6); Sodium 145 mmol/L (135-145); Total Protein 6.3 g/dL (6.5-8.0)
[2022-07-31 12:14] LABS: B Type Natriuretic Peptide 276 pg/mL (<100)
[2022-07-31 12:16] LABS: Troponin-I High Sensitivity 5.1 ng/L (<3.5-35.0)
[2022-07-31 12:25] LABS: Appearance Urine Clear; Color Urine Dark Yellow; Glucose Urine UA Negative (Negative); Leukocyte Esterase Urine Trace (Negative); Nitrite Urine Negative (Negative); PH 5.5 (5.0-9.0); UMIC TRIGGER UACC YES; Urine Blood Negative (Negative); Urine Ketones Trace mg/dL (Negative); Urine Protein Trace mg/dL (Neg-Trace)
[2022-07-31 12:30] LABS: Bacteria Urine None Seen (None Seen); Hyaline Casts Urine 0-2 /LPF (0-2); RBC Urine 0-2 /HPF (0-2); Squamous Epithelial Cell Urine 0-2 /HPF (0-2); WBC Urine 0-5 /HPF (0-5)
[2022-07-31 13:12] VITALS: BP 93/58; PULSE 40; RESP 13; TEMP 36.8; O2SAT 97
[2022-07-31 13:55] VITALS: BP 100/60; PULSE 43
[2022-07-31 13:57] VITALS: BP 110/65; PULSE 43
[2022-07-31 13:59] VITALS: BP 117/62; PULSE 43
--- NOTE | 2022-07-31 14:07 | PC.NURSE ---
Patient ambulated with strong independent gait HR 53 O2 sat 98 % on RA no lightheaded or dizziness appreciated, MD aware will CTM
== END 2022-07-31 14:40 | disposition home or self-care (01) ==
PROVIDERS: Physician Assistant; Emergency Provider Emergency Medicine; PCP Nurse Practitioner Family
DX: R00.1 Bradycardia, unspecified (principal); I95.9 Hypotension, unspecified; R06.02 Shortness of breath; Z20.822 Contact with and (suspected) exposure to COVID-19; Z20.828 Contact with and (suspected) exposure to other viral communicable diseases; Z79.899 Other long term (current) drug therapy
CPT/HCPCS: 71045; 80048; 80076; 81001; 83735; 83880; 84484; 85025; 87635; 93005; 99212; 99284

== ENCOUNTER 2022-09-12 12:25 | Outpatient (REF) | payer MEDICARE, SELFPAY ==
[2022-09-12 13:18] LABS: MANUAL DIFF FLAG NO
[2022-09-12 14:25] LABS: Basophils Percent Auto 0.4 % (0-2); Eosinophils Absolute Auto 0.1 X10*3/uL (0.0-0.4); Eosinophils Percent Auto 0.9 % (0-4); Hematocrit 47.5 % (42.0-52.0); Hemoglobin 16.1 g/dl (14.0-18.0); Imm Gran Abs Auto 0.04 X10*3/uL (0.00-0.03); Imm Gran Pct Auto 0.5 % (0.0-0.4); Mean Corpuscular HGB Conc 33.9 g/dl (31.0-36.0); Mean Corpuscular Hemoglobin 29.9 pg (27.0-33.0); Mean Corpuscular Volume 88.1 fL (80.0-98.0); Mean Platelet Volume 10.4 fL (9.4-12.4); Monocytes Absolute Auto 0.9 X10*3/uL (0.1-1.2); Monocytes Percent Auto 10.5 % (2-11); Neutrophils Absolute Auto 6.2 x10*3/uL (2.0-8.3); Neutrophils Percent Auto 75.7 % (45-73); Platelet Count 229 X10*3/uL (160-400); Red Blood Count 5.39 X10*6/uL (4.60-5.80); Red Cell Distribution Width 13.4 % (11.0-16.0); White Blood Count 8.2 X10*3/uL (4.8-10.8)
[2022-09-12 15:16] LABS: Appearance Urine Cloudy; Color Urine Dark Yellow; Glucose Urine UA Negative (Negative); Leukocyte Esterase Urine Trace (Negative); Nitrite Urine Negative (Negative); Specific Gravity - Urine 1.025 (1.005-1.025); UMIC TRIGGER UACC YES; Urine Blood Negative (Negative); Urine Ketones Trace mg/dL (Negative); Urine Protein Trace mg/dL (Neg-Trace)
[2022-09-12 15:25] LABS: Bacteria Urine None Seen (None Seen); Calcium Oxalate Crystals Urine Present; Hyaline Casts Urine 0-2 /LPF (0-2); Squamous Epithelial Cell Urine 0-2 /HPF (0-2); WBC Urine 0-5 /HPF (0-5)
[2022-09-12 15:38] LABS: Alanine Aminotransferase 11 U/L (0-40); Alkaline Phosphatase 63 U/L (39-117); Anion Gap 15 (12-20); Aspartate Amino Transferase 13 U/L (5-37); Bilirubin Total 1.1 mg/dL (0.0-1.0); Blood Urea Nitrogen 11 mg/dL (9-16); Calcium 9.4 mg/dL (8.4-10.2); Carbon Dioxide 22 mmol/L (22-29); Chloride 109 mmol/L (96-108); Estimated Glomerular Filt Rate > 60; Glucose Random 98 mg/dL (60-115); Potassium 3.6 mmol/L (3.3-5.1); Sodium 142 mmol/L (135-145); Total Protein 6.2 g/dL (6.5-8.0)
[2022-09-12 16:07] LABS: Folate 7.4 ng/mL (> or = 4.0); TSH reflex Free T4 5.52 uIU/mL (0.32-4.0); Vitamin B12 154 pg/mL (200-900)
[2022-09-12 16:59] LABS: Free T4 (Free Thyroxine) 1.37 ng/dL (0.71-1.85)
[2022-09-16 17:28] LABS: Homocysteine 20.7 umol/L (<11.4)
[2022-09-18 18:44] LABS: Methylmalonic Acid 326 nmol/L (87-318)
== END 2022-09-12 12:26 | disposition home or self-care (01) ==
LOC: HO.HMGCLDS 12:25
PROVIDERS: PCP Nurse Practitioner Family; Visit Provider Nurse Practitioner Family
DX: R41.3 Other amnesia (principal); E53.8 Deficiency of other specified B group vitamins
CPT/HCPCS: 36415; 80053; 81001; 82607; 82746; 83090; 83921; 84439; 84443; 85025; 87086

== ENCOUNTER 2022-09-18 11:32 | Outpatient (REF) | payer MEDICARE, SELFPAY ==
[2022-09-18 14:32] LABS: Appearance Urine Clear; Color Urine Dark Yellow; Glucose Urine UA Negative (Negative); Leukocyte Esterase Urine Negative (Negative); Nitrite Urine Negative (Negative); PH 5.5 (5.0-9.0); Urine Blood Negative (Negative); Urine Ketones Trace mg/dL (Negative); Urine Protein Negative (Neg-Trace)
[2022-09-18 15:29] LABS: TSH reflex Free T4 5.55 uIU/mL (0.32-4.0); Vitamin B12 197 pg/mL (200-900)
[2022-09-18 17:01] LABS: Free T4 (Free Thyroxine) 1.34 ng/dL (0.71-1.85)
[2022-09-20 22:53] LABS: Lyme Abs Screen <0.90 index
[2022-09-21 08:34] LABS: Transglutaminase Ab IgG <1.0 U/mL; Transglutaminase IgA <1.0 U/mL
[2022-09-24 11:58] LABS: Intrinsic Factor Antibodies Negative (Negative)
[2022-09-24 14:10] LABS: Endomysial IgA Antibody Negative (Negative)
[2022-09-26 22:53] LABS: Parietal Cell Antibody <=20.0 Unit (<=20.0)
== END 2022-09-18 11:33 | disposition home or self-care (01) ==
LOC: HO.HMGCLDS 11:32
PROVIDERS: PCP Nurse Practitioner Family; Visit Provider Nurse Practitioner Family
DX: R79.89 Other specified abnormal findings of blood chemistry (principal); E53.8 Deficiency of other specified B group vitamins; R41.3 Other amnesia
CPT/HCPCS: 36415; 81003; 82607; 82746; 83516; 84439; 84443; 86231; 86340; 86364; 86617; 86618

== ENCOUNTER → 2022-10-08 09:57 | Outpatient (BNVA) | payer MEDICARE, SELFPAY | PROVIDERS: PCP Nurse Practitioner Family; Visit Provider Nurse Practitioner Family | DX: R25.1 Tremor, unspecified (principal); G51.32 Clonic hemifacial spasm, left; R25.9 Unspecified abnormal involuntary movements; R41.3 Other amnesia | CPT/HCPCS: 99202 ==

== ENCOUNTER 2022-10-14 12:51 | Outpatient (REF) | payer MEDICARE, SELFPAY ==
--- NOTE | 2022-10-14 12:53 | EEG_ITS ---
This is a 16-channel EEG with an EKG lead. The patient is reported awake during the tracing. Background EEG rhythm is low to medium amplitude, mixed theta, beta with no obvious asymmetry or paroxysmal tendency. Photic stimulation does not produce any significant driving. Hyperventilation is not performed. Cardiac lead does not reveal any significant abnormality. No sharp wave spikes or paroxysmal tendencies noted. IMPRESSION: Mild generalized slowing with no evidence of seizure disorder. MD JINA Jefferson/REINIER / [id number]
== END 2022-10-14 12:52 | disposition home or self-care (01) ==
LOC: HO.NEURO 12:51
PROVIDERS: PCP Nurse Practitioner Family; Visit Provider Nurse Practitioner Family
DX: R25.9 Unspecified abnormal involuntary movements (principal); G51.32 Clonic hemifacial spasm, left; R25.1 Tremor, unspecified; R41.3 Other amnesia
CPT/HCPCS: 95816

== ENCOUNTER → 2022-10-18 07:29 | Outpatient (BNVA) | payer MEDICARE, SELFPAY | PROVIDERS: PCP Nurse Practitioner Family; Visit Provider Nurse Practitioner Family | DX: R25.9 Unspecified abnormal involuntary movements (principal); R25.1 Tremor, unspecified; R41.3 Other amnesia; G51.32 Clonic hemifacial spasm, left | CPT/HCPCS: Q3014 ==

== ENCOUNTER 2022-10-21 11:26 | Day surgery (SDC) | payer MEDICARE, SELFPAY ==
[2022-10-21] VITALS (9 sets, daily range): BP systolic 107–116; BP diastolic 63–70; PULSE 66–78; RESP 12–16; TEMP 36.1–36.6; O2SAT 95–97; BMI 28.5
--- NOTE | ~2022-10-21 | FL_ITS ---
EXAMINATION: XR LUMBAR PUNCTURE CLINICAL INFORMATION: Amnesia. COMPARISON: None available. TECHNIQUE/FINDINGS: Procedure and risks and benefits including bleeding, infection and headache were discussed with the patient and informed consent was obtained. The patient was positioned in the prone position. Initially, using a 22-gauge spinal needle left-sided interlaminar access to the spinal canal at the L4-L5 level was obtained. Only scant CSF fluid could be obtained at this level. Subsequently, using a 20-gauge spinal needle, right sided interlaminar access to the spinal canal at the L2-L3 level was obtained. 5 mL of fluid which was initially slightly bloody followed by clear was removed. Opening pressure did not appear elevated. FLUOROSCOPY TIME: 1.1 minutes FLUOROSCOPIC IMAGES: 1 saved. DOSE AREA PRODUCT: 12 uGy-cm2 DLP: 77 mGy-cm FL/FL guided lumbar puncture LP IMPRESSION: Fluoroscopy-guided lumbar puncture.
[2022-10-21 11:57] LABS: MANUAL DIFF FLAG NO
[2022-10-21 12:01] LABS: Basophils Absolute Auto 0.1 X10*3/uL (0.0-0.2); Basophils Percent Auto 0.8 % (0-2); Eosinophils Absolute Auto 0.2 X10*3/uL (0.0-0.4); Eosinophils Percent Auto 2.8 % (0-4); Hematocrit 46.4 % (42.0-52.0); Imm Gran Abs Auto 0.02 X10*3/uL (0.00-0.03); Imm Gran Pct Auto 0.3 % (0.0-0.4); Lymphocytes Absolute Auto 1.6 X10*3/uL (1.2-4.9); Lymphocytes Percent Auto 20.1 % (20-40); Mean Corpuscular HGB Conc 32.3 g/dl (31.0-36.0); Mean Corpuscular Hemoglobin 29.8 pg (27.0-33.0); Mean Corpuscular Volume 92.2 fL (80.0-98.0); Mean Platelet Volume 9.1 fL (9.4-12.4); Monocytes Absolute Auto 0.6 X10*3/uL (0.1-1.2); Neutrophils Absolute Auto 5.4 x10*3/uL (2.0-8.3); Platelet Count 288 X10*3/uL (160-400); Red Blood Count 5.03 X10*6/uL (4.60-5.80); Red Cell Distribution Width 14.9 % (11.0-16.0); White Blood Count 7.9 X10*3/uL (4.8-10.8)
[2022-10-21 12:05] LABS: Prothrombin Time 11.1 SEC (10.0-13.1)
[2022-10-21 12:07] LABS: Partial Thromboplastin Time 32.4 SEC (26.0-36.4)
[2022-10-21 15:40] LABS: CSF Appearance Clear, Colorless; CSF Tube # 2
[2022-10-21 16:03] LABS: Glucose CSF 51 mg/dL; Total Protein CSF 55.8 mg/dL (15-45)
[2022-10-21 17:38] LABS: Appearance CSF CLEAR; CSF Tube # 1
[2022-10-21 17:39] LABS: CSF Volume 0.5 ML; Color CSF COLORLESS; Red Blood Cell CSF 438 MM*3
[2022-10-21 17:53] LABS: Appearance CSF CLEAR; CSF Tube # 4
[2022-10-21 17:54] LABS: CSF Volume 1.5 ML; Color CSF COLORLESS; Red Blood Cell CSF 114 MM*3; White Blood Cell CSF 0 MM*3
[2022-10-21 18:34] LABS: White Blood Cell CSF 2 MM*3
[2022-10-21 18:41] LABS: Lymphocytes CSF 80 %; Neutrophils CSF 20 %
[2022-10-21 20:12] LABS: Cryptococcus neoformans/gattii Not Detected (Not Detect.); Enterovirus Not Detected (Not Detect.); Escherichia coli K1 Not Detected (Not Detect.); Haemophilus influenzae Not Detected (Not Detect.); Herpes simplex virus 1 Not Detected (Not Detect.); Herpes simplex virus 2 Not Detected (Not Detect.); Human herpesvirus 6 Not Detected (Not Detect.); Human parechovirus Not Detected (Not Detect.); Listeria monocytogenes Not Detected (Not Detect.); Neisseria meningitidis Not Detected (Not Detect.); Streptococcus agalactiae Not Detected (Not Detect.); Streptococcus pneumoniae Not Detected (Not Detect.); Varicella zoster virus Not Detected (Not Detect.)
[2022-10-26 02:18] LABS: JC Polyoma Virus RT CSF Not Detected (Not Detected)
[2022-10-29 20:54] LABS: Lyme IgG CSF Immunoblot NO BANDS DETECTED; Lyme IgM CSF Immunoblot NO BANDS DETECTED
[2022-10-31 15:24] LABS: Hu Antibody Screen, CSF NEGATIVE (NEGATIVE)
[2022-11-08 20:34] LABS: Toxoplasma gondii IgG - CSF <0.90; Toxoplasma gondii IgM CSF <0.80
[2022-11-25 08:24] LABS: Lyme (B. burgdorferi) PCR NOT DETECTED
== END 2022-10-21 16:40 | disposition home or self-care (01) ==
PROVIDERS: Radiology Diagnostic Radiology; PCP Nurse Practitioner Family; Visit Provider Nurse Practitioner Family
PROC: 009U3ZZ Drainage of Spinal Canal, Percutaneous Approach (ICD-10-PCS; CPT 62270; principal; 2022-10-21 13:00)
DX: R41.3 Other amnesia (principal); R25.1 Tremor, unspecified; G51.32 Clonic hemifacial spasm, left; R25.9 Unspecified abnormal involuntary movements; R41.82 Altered mental status, unspecified; I48.0 Paroxysmal atrial fibrillation; I10 Essential (primary) hypertension; I25.10 Atherosclerotic heart disease of native coronary artery without angina pectoris; Z95.1 Presence of aortocoronary bypass graft; I25.5 Ischemic cardiomyopathy; E03.9 Hypothyroidism, unspecified; E53.8 Deficiency of other specified B group vitamins; Z79.01 Long term (current) use of anticoagulants; G47.33 Obstructive sleep apnea (adult) (pediatric); Z79.899 Other long term (current) drug therapy; Z88.0 Allergy status to penicillin; F17.290 Nicotine dependence, other tobacco product, uncomplicated; F10.11 Alcohol abuse, in remission
CPT/HCPCS: 36415; 62328; 82945; 84157; 84181; 85025; 85610; 85730; 86255; 86256; 86617; 86777; 86778; 87015; 87070; 87205; 87476; 87483; 87798; 89051

== ENCOUNTER 2022-10-30 15:11 | Outpatient (REF) | payer MEDICARE, SELFPAY ==
[2022-10-30 17:59] LABS: MANUAL DIFF FLAG NO
[2022-10-30 18:01] LABS: Basophils Percent Auto 0.4 % (0-2); Eosinophils Absolute Auto 0.1 X10*3/uL (0.0-0.4); Eosinophils Percent Auto 1.4 % (0-4); Hematocrit 42.3 % (42.0-52.0); Hemoglobin 13.8 g/dl (14.0-18.0); Imm Gran Abs Auto 0.03 X10*3/uL (0.00-0.03); Imm Gran Pct Auto 0.3 % (0.0-0.4); Lymphocytes Absolute Auto 1.1 X10*3/uL (1.2-4.9); Lymphocytes Percent Auto 10.9 % (20-40); Mean Corpuscular HGB Conc 32.6 g/dl (31.0-36.0); Mean Corpuscular Hemoglobin 29.9 pg (27.0-33.0); Mean Corpuscular Volume 91.6 fL (80.0-98.0); Mean Platelet Volume 9.6 fL (9.4-12.4); Monocytes Absolute Auto 0.8 X10*3/uL (0.1-1.2); Monocytes Percent Auto 8.2 % (2-11); Neutrophils Absolute Auto 7.9 x10*3/uL (2.0-8.3); Neutrophils Percent Auto 78.8 % (45-73); Platelet Count 276 X10*3/uL (160-400); Red Blood Count 4.62 X10*6/uL (4.60-5.80); Red Cell Distribution Width 15.7 % (11.0-16.0)
[2022-10-30 18:51] LABS: Folate 5.6 ng/mL (> or = 4.0); Vitamin B12 330 pg/mL (200-900)
== END 2022-10-30 15:12 | disposition home or self-care (01) ==
LOC: HO.HMGCLDS 15:11
PROVIDERS: PCP Nurse Practitioner Family; Visit Provider Nurse Practitioner Family
DX: E53.8 Deficiency of other specified B group vitamins (principal)
CPT/HCPCS: 36415; 82607; 82746; 85025

== ENCOUNTER 2022-11-01 14:31 | Outpatient (REF) | payer MEDICARE, SELFPAY ==
[2022-11-01 17:11] LABS: MANUAL DIFF FLAG NO
[2022-11-01 17:18] LABS: Basophils Absolute Auto 0.1 X10*3/uL (0.0-0.2); Basophils Percent Auto 0.6 % (0-2); Eosinophils Absolute Auto 0.2 X10*3/uL (0.0-0.4); Eosinophils Percent Auto 1.4 % (0-4); Hematocrit 39.6 % (42.0-52.0); Hemoglobin 13.1 g/dl (14.0-18.0); Imm Gran Abs Auto 0.04 X10*3/uL (0.00-0.03); Imm Gran Pct Auto 0.4 % (0.0-0.4); Lymphocytes Absolute Auto 1.1 X10*3/uL (1.2-4.9); Mean Corpuscular HGB Conc 33.1 g/dl (31.0-36.0); Mean Corpuscular Hemoglobin 30.8 pg (27.0-33.0); Mean Platelet Volume 9.7 fL (9.4-12.4); Monocytes Absolute Auto 1.1 X10*3/uL (0.1-1.2); Monocytes Percent Auto 10.4 % (2-11); Neutrophils Absolute Auto 8.3 x10*3/uL (2.0-8.3); Neutrophils Percent Auto 77.2 % (45-73); Platelet Count 273 X10*3/uL (160-400); Red Blood Count 4.26 X10*6/uL (4.60-5.80); White Blood Count 10.7 X10*3/uL (4.8-10.8)
== END 2022-11-01 14:32 | disposition home or self-care (01) ==
LOC: HO.HMGCLDS 14:31
PROVIDERS: PCP Nurse Practitioner Family; Visit Provider Nurse Practitioner Family
DX: I10 Essential (primary) hypertension (principal)
CPT/HCPCS: 36415; 85025

== ENCOUNTER 2022-11-11 15:12 | Outpatient (REF) | payer MEDICARE, SELFPAY ==
[2022-11-11 21:37] LABS: Thyroid Stimulating Hormone 8.11 uIU/mL (0.32-4.0)
[2022-11-11 21:43] LABS: Vitamin B12 212 pg/mL (200-900)
[2022-11-13 02:22] LABS: Syphilis Screen Nonreactive (Nonreactive)
[2022-11-14 16:04] LABS: Ceruloplasmin 22 mg/dL (18-36); Streptolysin O Antibody <50 IU/mL (<200)
[2022-11-20 13:09] LABS: Anti Nuclear Antibody Screen POSITIVE (NEGATIVE); Anti Nuclear Antibody Titer 1:40 titer
[2022-11-22 13:47] LABS: Parvovirus B19 IgM <0.9
== END 2022-11-11 15:13 | disposition home or self-care (01) ==
LOC: HO.HMGCLDS 15:12
PROVIDERS: Absent Provider Internal Medicine; PCP Nurse Practitioner Family; Visit Provider Nurse Practitioner Family
DX: R25.1 Tremor, unspecified (principal)
CPT/HCPCS: 36415; 82390; 82607; 84443; 86038; 86039; 86060; 86747; 86780

== ENCOUNTER 2022-12-12 12:54 | Outpatient (AMB) | payer MEDICARE, SELFPAY ==
--- NOTE | 2022-12-12 13:02 | A.OFFPC_ITS ---
Vital Signs 12/12/22 13:03 Height 6 ft BMI Reason not done Patient refused/unable BP 88/50 L Blood Pressure Location Lt brachial Position Sitting Pulse 58 Pulse Source Pulse Oximeter Pulse Oximetry (%) 94 Oxygen Delivery Method Room Air Intake Visit Reasons: 3m follow up Allergies Penicillins [PENICILLINS] Allergy (Intermediate, Verified 12/12/22 18:16) ITCHY RASH Medication List - Last Reconciled 12/12/22 by EDOUARD Burton acetaminophen 650 mg (2 x 325 mg) PO Q6H PRN 30 days amiodarone 200 mg PO DAILY apixaban (Eliquis) 5 mg PO BID ascorbate calcium (vitamin C) 500 mg PO DAILY cholecalciferol (vitamin D3) (D3-2000) 50 mcg PO DAILY clopidogrel 75 mg PO DAILY diphenhydramine HCl (Benadryl) 25 mg PO BEDTIME PRN empagliflozin (Jardiance) 10 mg PO DAILY ezetimibe 10 mg PO BEDTIME furosemide 20 mg PO DAILY levothyroxine 200 mcg PO DAILY metoprolol succinate ER (Toprol XL) 25 mg PO DAILY nitroglycerin (Nitrostat) 0.4 mg sublingual Q5M PRN 30 days pantoprazole 40 mg PO DAILY paroxetine HCl 20 mg PO QAM potassium chloride ER 40 mEq PO BID rosuvastatin 40 mg PO DAILY sacubitril-valsartan 97-103 mg (Entresto) 1 tab PO BID vit C,C-Xw-otsgp-lutein-zeaxan 250-90-40-1 mg (PreserVision AREDS-2) 1 tab PO BID Tobacco use date assessed: 12/12/22 Fall risk assessment: 2 + Falls in past year Last assessed Fall Risk: 12/12/22 Dental Screening Dental Screen Date: 12/12/22 Did you have a dental visit in the last 12 months?: No Did you have a dental problem in the last 6 months where you did not have access to dental care?: No Was dental information given to patient?: No HPI 3m follow up HPI Details Pt was seen in the ER on 11/12 c/o chest pain and shortness of breath earlier in the day. EKG showed no acute ischemic changes, though troponin was elevated at 331 consistent with NSTEMI. He was given aspirin and started on heparin. Chest xr was consistent with pulmonary edema/CHF. Potassium was low, given oral dose. Pt was seen by cardiology who recommended an echo. Echo showed EF of 20-30%, basal to mid inferolateral, anterolateral wall aneurysmal, no thrombus, moderate MR. Per cardiology, likely demand ischemia. Heparin was d/c after 48hrs, no plan for cardiac cath. It was recommended that pt continue current meds, start lasix 20mg daily, and follow up with cardiology. Pt was d/c to a rehab facility. Today, pt fell in the office hallway while using a walker, unwitnessed by me. Pt reportedly fell forward onto his knees/chest (witnessed by NUHA). NO LOC noted. He is currently in a wheelchair, after being manually lifted from the floor. Incident report will be filled out by NUHA who witnessed the fall. Will order xr's of bilat knees. Pt is noted to be hypotensive today. Will contact pt's projection camera operator regarding this and med changes. BPs at home have been in the upper 80s/40s-50s. He now has a cardiology follow up tomorrow morning. Pt has seen neurology (Dr. Ezra Jacobs) once who ordered tests and labs. Pt is being tested for Parkinson's next week. He does have frequent falls at home. Denies chest pain, shortness of breath, and headache. Pt's is in the exam room further reported confusion at home, he is seeing old friends who several years ago, for example. [facility] Medical History CAD (coronary artery disease) Carpal tunnel syndrome of left wrist Depression Familial hypocalciuric hypercalcemia History of blood transfusion HTN (hypertension) Hyperparathyroidism Hypotension Hypothyroidism Ischemic cardiomyopathy Left carpal tunnel syndrome FÉLIX (obstructive sleep apnea) Osteopenia Paroxysmal atrial fibrillation PTSD (post-traumatic stress disorder) Pulmonary nodule Severe obstructive sleep apnea Vitamin D deficiency Surgical History AICD (automatic cardioverter/defibrillator) present History of AAA (abdominal aortic aneurysm) repair Hx of appendectomy Hx of cataract Hx of colonoscopy Hx of discectomy Hx of tonsillectomy Hx of total knee replacement S/P CABG x 6 Family History Father CAD (coronary artery disease) Substance use disorder Mother CVA (cerebral vascular accident) Paternal Uncle Substance use disorder Other Mental health disorder Social History Household Members: Significant Other Housing: House Are you a primary pediatric care coordinator to a significant other at home: No Do you presently have visiting nurse or other home services: No Alcohol intake: never Patient Tobacco Use Status: Current everyday Tobacco user Tobacco use type: Cigar e-Cigarette/Vaping Use: Never Used Substance Use Type: Marijuana Advance Directives Date on File: 07/27/21 service: No Current occupational status: retired Cognitive needs: No Hearing needs: No Vision needs: No Questionnaire Thrive Questionnaire Date Thrive assessed: 09/12/22 TOBIAS-7 AMB Questionnaire TOBIAS-7 Date TOBIAS - 7 assessed: 09/12/22 Source: Developed by Drs. Jason Michel, Porsche Aguilar, Missael Lindsay and colleagues, with an educational angela from [employer]. Review of Systems Const Reports as per HPI Physical exam (Primary Care) Vital Signs: Last Vital Signs Pulse 58 12/12/22 13:03 BP 88/50 L 12/12/22 13:03 Pulse Ox 94 12/12/22 13:03 Oxygen Delivery Method Room Air 12/12/22 13:03 Tobacco/Smoking Status: Tobacco use Status Tobacco use date assessed 12/12/22 12/12/22 13:21 Patient Tobacco Use Status Current everyday Tobacco 12/12/22 13:15 Tobacco use type Cigar 12/12/22 13:15 e-Cigarette/Vaping Use Never Used 12/12/22 13:15 Thrive Assessment: Date of Thrive Assessment Date Thrive assessed 09/12/22 12/12/22 13:15 Const Other: pale complexion oriented to place, person, and time General: cooperative Orientation/consciousness: patient oriented x3 Resp Effort & Inspection: normal respiratory effort Auscultation: clear to auscultation bilaterally Cardio Rate: regular rate Rhythm: regular rhythm Heart sounds: S1 normal heart sound present, S2 normal heart sound present and Murmur heart sound present systolic (faint) Skin Other: no abrasions to anterior chest or face. ecchymosis noted to lower mid back (old) Neuro Other: spastic jerking while sitting in wheelchair, arm spastically jolts in superior position, eyelid closes (right side), faint jerking motions to BLE General: patient oriented x3 Extrem Other: left patella medial aspect with very subtle ecchymosis, abrasion to anterior aspect of patella, TTP, right side with egg-like hematoma, faintly erythematous, able to flex and extend at knee Psych Appearance: grossly normal Speech and movement: Clear speech present Affect: normal affect Attitude: cooperative Assessment and Plan Assessment & Plan (1) Falls frequently: Code(s): R29.6 - Repeated falls Plan: Knee xr's ordered, carotid US ordered (2) Hypotension: Code(s): I95.9 - Hypotension, unspecified (3) Tic: Code(s): F95.9 - Tic disorder, unspecified (4) Spastic: Code(s): R25.2 - Cramp and spasm (5) Involuntary movements: Code(s): R25.9 - Unspecified abnormal involuntary movements Plan The patient agreed to the use of a medical communication specialist for this encounter. Scribed for AMELIA Parker- by Debbie Dior medical communication specialist, on 12/12/2022 at 13:30 EST. Orders: Orders US carotid duplex BI Today R29.6 - Repeated falls XR knee RT 2V Today R29.6 - Repeated falls XR knee LT 2V Today R29.6 - Repeated falls Coding Level of Care Code Est Pt Level 4 (17805) Diagnoses Falls frequently R29.6 Hypotension I95.9 Tic F95.9 Spastic R25.2 Involuntary movements R25.9
[2022-12-12 13:03] VITALS: BP 88/50; PULSE 58; O2SAT 94
== END 2022-12-12 14:07 | disposition home or self-care (01) ==
PROVIDERS: PCP Nurse Practitioner Family; Visit Provider Nurse Practitioner Family
DX: R29.6 Repeated falls (principal); I95.9 Hypotension, unspecified; F95.9 Tic disorder, unspecified; R25.9 Unspecified abnormal involuntary movements
CPT/HCPCS: 99214

== ENCOUNTER 2022-12-18 14:52 | Outpatient (AMB) | payer MEDICARE, SELFPAY ==
--- NOTE | 2022-12-18 15:33 | AM.OFFVISNUR ---
Intake Intake Visit Reasons: b12 Intake Note: B12 injection #1 of 3 Q4wks Allergies Penicillins [PENICILLINS] Allergy (Intermediate, Verified 12/12/22 18:16) ITCHY RASH Office Meds cyanocobalamin (vitamin B-12) Performing Provider: EDOUARD Burton Administered by: Eliz Doll RN on 12/18/22 15:15 Dose Route Admin Location Lot Number Expiration Date [place] [employer] 1,000 mcg IM Left deltoid [id number] 04/03/24 9547-3295-58 [facility] Comments: Pt supplied. Coding Diagnoses Assessment & Plan Assessment & Plan Orders: Orders XR shoulder RT min 2V Today W19.XXXA - Unspecified fall, initial encounter AMB Vitamin B12 Injection Patient Supplied Today D64.9 - Anemia, unspecified, E53.8 - Deficiency of other specified B group vitamins
== END 2022-12-18 15:55 | disposition home or self-care (01) ==
LOC: HO.HMGC 14:52
PROVIDERS: PCP Nurse Practitioner Family; Visit Provider Nurse Practitioner Family
DX: E53.8 Deficiency of other specified B group vitamins (principal); D64.9 Anemia, unspecified
CPT/HCPCS: 96372; J3420

== ENCOUNTER 2022-12-18 15:17 | Outpatient (REF) | payer MEDICARE, SELFPAY ==
--- NOTE | ~2022-12-18 | XR_ITS ---
EXAMINATION: XR ORBITS CLINICAL INFORMATION: Status post fall with orbital pain for COMPARISON: None available. TECHNIQUE: 4 views of the orbits were obtained. FINDINGS: There is no fracture. No bone, joint or soft tissue abnormality is demonstrated. XR/XR orbit min 4V IMPRESSION: Unremarkable orbits.
--- NOTE | ~2022-12-18 | XR_ITS ---
EXAMINATION: XR SHOULDER, RIGHT CLINICAL INFORMATION: Right shoulder pain. COMPARISON: None available. TECHNIQUE: AP external rotation, Grashey, scapular Y, and axillary views of the right shoulder. FINDINGS: The humeral head is positioned mildly superior relative the bony glenoid. There is no acute fracture or dislocation. Mild degenerative joint changes are seen. The soft tissues are unremarkable. XR/XR shoulder RT min 2V IMPRESSION: Evidence for chronic rotator cuff tear with associated degenerative changes. No acute fracture.
--- NOTE | ~2022-12-18 | XR_ITS ---
EXAMINATION: XR KNEE, RIGHT CLINICAL INFORMATION: Right knee pain. COMPARISON: Comparison is made to 10/19/2021. TECHNIQUE: Four views of the right knee. FINDINGS: The patient is status post right knee arthroplasty showing good anatomic alignment and no evidence for hardware malfunction. There is no acute fracture. The soft tissues are unremarkable. XR/XR knee RT 2V IMPRESSION: No hardware abnormality. No acute fracture.
--- NOTE | ~2022-12-18 | XR_ITS ---
EXAMINATION: XR KNEE, LEFT CLINICAL INFORMATION: Left knee pain status post fall. COMPARISON: None available. TECHNIQUE: Four views of the left knee. FINDINGS: Mild medial femoral-tibial joint space narrowing is seen. There is no acute fracture or dislocation. Possible trace suprapatellar joint effusion. Mild prepatellar soft tissue swelling. Mild to moderate atherosclerosis. XR/XR knee LT 2V IMPRESSION: 1. Mild degenerative joint changes suggesting osteoarthritis. 2. Possible trace suprapatellar joint effusion. 3. Mild prepatellar soft tissue swelling. Correlate with physical exam.
== END 2022-12-18 15:18 | disposition home or self-care (01) ==
LOC: HO.HMGCX 15:17
PROVIDERS: PCP Nurse Practitioner Family; Visit Provider Nurse Practitioner Family
DX: T14.90XA Injury, unspecified, initial encounter (principal); W19.XXXA Unspecified fall, initial encounter; Y93.9 Activity, unspecified; Y92.9 Unspecified place or not applicable; Y99.9 Unspecified external cause status
CPT/HCPCS: 70200; 73030; 73560

== ENCOUNTER 2023-03-04 13:57 | Outpatient (AMB) | payer MEDICARE, SELFPAY ==
--- NOTE | 2023-03-04 13:58 | MHC.PC.OV ---
Vital Signs 03/04/23 14:00 Height 6 ft Weight 201 lb BMI 27.3 BP 118/78 Blood Pressure Location Rt brachial Position Sitting Pulse 83 Pulse Source Pulse Oximeter Pulse Oximetry (%) 96 Oxygen Delivery Method Room Air Intake Visit Reasons: HDF ~ Post hospital discharge FU Intake Note: pt is bhere today for pst hospital discharge FU Allergies Penicillins [PENICILLINS] Allergy (Intermediate, Verified 03/04/23 16:57) ITCHY RASH Tobacco use date assessed: 03/04/23 Fall risk assessment: No Falls in past year Last assessed Fall Risk: 03/04/23 Dental Screening Dental Screen Date: 03/04/23 Did you have a dental visit in the last 12 months?: Yes Did you have a dental problem in the last 6 months where you did not have access to dental care?: No Was dental information given to patient?: Patient has dentist HPI HDF ~ Post hospital discharge FU HPI Details Pt was seen in the ER on 12/26 c/o shortness of breath and weight gain. 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 Pt was seen by pulmonology and underwent BAL. Pt's oxygen requirements improved during his admission. 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 He was seen by pulmonology who recommended a long course of prednisone. Pt was started on bactrim prophylactically. It was recommended that pt have a repeat CT outpatient. Pt's amiodarone was d/c due to concern for pulmonary toxicity. His spironolactone was also d/c. 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 Neurology recommended continuing steroid taper. Pt was started on topamax for seizure prophylaxis. Pt has followed up with pulmonology and neurology since being discharged. Pt is still on prednisone 30mg bid and bactrim 3x/week. Pt c/o left shoulder pain. He has tried OTC remedies for this with no relief. Will order XR. Will also send lidocaine patches. Hx of B12 deficiency, will given injection today and repeat labs. NOTE: left shoulder pain, though fairly good ROM, XR ordered. Already referred to ortho for current right rotator cuff tear. NOTE: pt A+O, speaking in full sentences, no spastic tics/tremors noted. Pt denies any fevers,chills, sob, cp, n/v. PFSH Medical History Respiratory failure Limbic encephalitis Hypotension History of blood transfusion Osteopenia Hyperparathyroidism Severe obstructive sleep apnea Hypothyroidism Familial hypocalciuric hypercalcemia Vitamin D deficiency HTN (hypertension) Carpal tunnel syndrome of left wrist Ischemic cardiomyopathy Left carpal tunnel syndrome PTSD (post-traumatic stress disorder) FÉLIX (obstructive sleep apnea) Pulmonary nodule Paroxysmal atrial fibrillation Depression CAD (coronary artery disease) Surgical History Hx of cataract Hx of total knee replacement History of AAA (abdominal aortic aneurysm) repair AICD (automatic cardioverter/defibrillator) present Hx of colonoscopy Hx of discectomy Hx of appendectomy Hx of tonsillectomy S/P CABG x 6 Family History Father CAD (coronary artery disease) Substance use disorder Mother CVA (cerebral vascular accident) Paternal Uncle Substance use disorder Other Mental health disorder Social History Household Members: Significant Other Housing: House Are you a primary resident care aide to a significant other at home: No Do you presently have visiting nurse or other home services: No Alcohol intake: never Patient Tobacco Use Status: Current everyday Tobacco user Tobacco use type: Cigar e-Cigarette/Vaping Use: Never Used Substance Use Type: Marijuana Advance Directives Date on File: 07/27/21 service: No Current occupational status: retired Cognitive needs: No Hearing needs: No Vision needs: No Questionnaire Thrive Questionnaire Date Thrive assessed: 09/12/22 AUDIT C Alcohol Use Questionnaire (AUDIT-C) 1. How often do you have a drink containing alcohol?: Never Total Score: 0 TOBIAS-7 AMB Questionnaire TOBIAS-7 Date TOBIAS - 7 assessed: 09/12/22 Source: Developed by Drs. Jason Michel, Porsche Aguilar, Missael Lindsay and colleagues, with an educational angela from [employer] Review of Systems Const Reports as per HPI Physical exam (Primary Care) Vital Signs: Last Vital Signs Pulse 83 03/04/23 14:00 BP 118/78 03/04/23 14:00 Pulse Ox 96 03/04/23 14:00 Oxygen Delivery Method Room Air 03/04/23 14:00 BMI result Body Mass Index 27.3 Tobacco/Smoking Status: Tobacco use Status Tobacco use date assessed 03/04/23 03/04/23 14:02 Patient Tobacco Use Status Current everyday Tobacco 03/04/23 14:02 Tobacco use type Cigar 03/04/23 14:02 e-Cigarette/Vaping Use Never Used 03/04/23 14:02 Thrive Assessment: Date of Thrive Assessment Date Thrive assessed 09/12/22 03/04/23 14:02 Const General: cooperative Orientation/consciousness: patient oriented x3 Limitations: wheelchair Resp Other: faint crackles to left base Effort & Inspection: normal respiratory effort Cardio Rate: regular rate Rhythm: regular rhythm Heart sounds: S1 normal heart sound present and S2 normal heart sound present Neuro Other: no spastic tics noted General: patient oriented x3 Psych Appearance: grossly normal Mental Status: mental status grossly normal Speech and movement: Normal speech and movement present Affect: normal affect Attitude: cooperative Thought process: Normal thought process present Thought content: Normal thought content present Insight: Good insight present (Psych) Judgement: Good judgement present (Psych) Office Meds cyanocobalamin (vitamin B-12) 1,000 mcg/mL injection solution Performing Provider: MARGY Burton [place] [facility] Administered by: Karey Villasenor RN on 03/04/23 14:48 Dose Route Admin Location Dispensed Lot Number Expiration Date [facility] Entry Level Sales Representative 1,000 mcg IM left deltoid 1 mL [id number] 03/05/24 [id number] [facility] Comments: Pt supplied Assessment and Plan Assessment & Plan (1) Left shoulder pain: Code(s): M25.512 - Pain in left shoulder Plan: XR ordered, lidocaine patches sent (2) Involuntary movements: Code(s): R25.9 - Unspecified abnormal involuntary movements (3) Tic: Code(s): F95.9 - Tic disorder, unspecified Plan: follows up with neuro, primary neuro considering referring to specialist that deals with limbic encephalitis in [facility] (4) Tremor: Code(s): R25.1 - Tremor, unspecified (5) Respiratory failure: Code(s): J96.90 - Respiratory failure, unspecified, unspecified whether with hypoxia or hypercapnia Plan: cont to follow up with pulmonary (6) B12 deficiency: Code(s): E53.8 - Deficiency of other specified B group vitamins (7) Right rotator cuff tear: Code(s): M75.101 - Unspecified rotator cuff tear or rupture of right shoulder, not specified as traumatic Plan The patient agreed to the use of a medical chief technician for this encounter. Scribed for Ezra Denney COMMISSARY PRODUCTION SUPERVISOR- by Debbie Dior medical chief technician, on 03/04/2023 at 14:20 EST. Orders: Orders Complete Blood Count Auto Diff Today F95.9 - Tic disorder, unspecified, J96.90 - Respiratory failure, unspecified, unspecified whether with hypoxia or hypercapnia, M25.512 - Pain in left shoulder, R25.1 - Tremor, unspecified, R25.9 - Unspecified abnormal involuntary movements TSH reflex Free T4 Today F95.9 - Tic disorder, unspecified, J96.90 - Respiratory failure, unspecified, unspecified whether with hypoxia or hypercapnia, M25.512 - Pain in left shoulder, R25.1 - Tremor, unspecified, R25.9 - Unspecified abnormal involuntary movements UA CC w/rflx Micro + Cult Today F95.9 - Tic disorder, unspecified, J96.90 - Respiratory failure, unspecified, unspecified whether with hypoxia or hypercapnia, M25.512 - Pain in left shoulder, R25.1 - Tremor, unspecified, R25.9 - Unspecified abnormal involuntary movements Lipid Panel Today F95.9 - Tic disorder, unspecified, J96.90 - Respiratory failure, unspecified, unspecified whether with hypoxia or hypercapnia, M25.512 - Pain in left shoulder, R25.1 - Tremor, unspecified, R25.9 - Unspecified abnormal involuntary movements Vitamin B12 and Folate Today E53.8 - Deficiency of other specified B group vitamins XR shoulder LT min 2V Today M25.512 - Pain in left shoulder Comprehensive Sawyer. Panel Fast Today F95.9 - Tic disorder, unspecified, J96.90 - Respiratory failure, unspecified, unspecified whether with hypoxia or hypercapnia, M25.512 - Pain in left shoulder, R25.1 - Tremor, unspecified, R25.9 - Unspecified abnormal involuntary movements AMB Vitamin B12 Injection Patient Supplied Today E53.8 - Deficiency of other specified B group vitamins Referrals Orthopedics Referral M75.101 - Unspecified rotator cuff tear or rupture of right shoulder, not specified as traumatic Medications: New lidocaine 5% leave on most painful area for up to 12 hrs 1 patch topical DAILY PRN 30 ea 0RF pain Coding Level of Care Code Est Pt Level 4 (36899) Diagnoses Left shoulder pain M25.512 Involuntary movements R25.9 Tic F95.9 Tremor R25.1 Respiratory failure J96.90 B12 deficiency E53.8 Right rotator cuff tear M75.101
[2023-03-04 14:00] VITALS: BP 118/78; PULSE 83; O2SAT 96; BMI 27.3
== END 2023-03-04 14:50 | disposition home or self-care (01) ==
PROVIDERS: PCP Nurse Practitioner Family; Visit Provider Nurse Practitioner Family
DX: M25.512 Pain in left shoulder (principal); F95.9 Tic disorder, unspecified; J96.90 Respiratory failure, unspecified, unspecified whether with hypoxia or hypercapnia; E53.8 Deficiency of other specified B group vitamins; M75.101 Unspecified rotator cuff tear or rupture of right shoulder, not specified as traumatic
CPT/HCPCS: 96372; 99214; J3420

== ENCOUNTER 2023-03-06 14:00 | Outpatient (REF) | payer MEDICARE, SELFPAY ==
--- NOTE | ~2023-03-06 | US_ITS ---
EXAMINATION: US EXTRACRANIAL CAROTID DUPLEX, BILATERAL CLINICAL INFORMATION: Repeated falls. COMPARISON: None available. TECHNIQUE: Real-time ultrasound and Doppler techniques (integrating B-mode 2-D vascular images, Doppler spectral analysis and color-flow Doppler imaging) were utilized to interrogate the extracranial carotid arteries, the vertebral arteries and proximal subclavian arteries bilaterally. The degree of stenosis is determined by criteria similar to NASCET. FINDINGS: Right Side: 1. There is mild atherosclerotic plaque seen in the bifurcation/proximal ICA region. 2. The common carotid artery PSV proximally is 71 cm/s and distally 57 cm/s. 3. The proximal internal carotid artery velocities are 100 cm/s systolic and 33 cm/s diastolic. 4. The proximal external carotid artery PSV is 103 cm/s. 5. The vertebral artery shows antegrade flow. 6. The subclavian artery waveforms are normal. Left Side: 1. There is mild atherosclerotic plaque seen in the bifurcation/proximal ICA region. 2. The common carotid artery PSV proximally is 77 cm/s and distally 59 cm/s. 3. The proximal internal carotid artery velocities are 54 cm/s systolic and 17 cm/s diastolic. 4. The proximal external carotid artery PSV is 130 cm/s. 5. The vertebral artery shows antegrade flow. 6. The subclavian artery waveforms are normal. US/US carotid duplex BI IMPRESSION: 1. RIGHT: Minimal, non-hemodynamically significant stenosis of the proximal right internal carotid artery corresponding to a 0-49% stenosis by velocity criteria. 2. LEFT: Minimal, non-hemodynamically significant stenosis of the proximal left internal carotid artery corresponding to a 0-49% stenosis by velocity criteria.
== END 2023-03-06 14:01 | disposition home or self-care (01) ==
LOC: HO.US 14:00
PROVIDERS: PCP Nurse Practitioner Family; Visit Provider Nurse Practitioner Family
DX: R07.9 Chest pain, unspecified (principal); R06.02 Shortness of breath; R42 Dizziness and giddiness; I25.10 Atherosclerotic heart disease of native coronary artery without angina pectoris; R29.6 Repeated falls
CPT/HCPCS: 93880

== ENCOUNTER 2023-03-11 14:19 | Outpatient (REF) | payer MEDICARE, SELFPAY ==
--- NOTE | ~2023-03-11 | XR_ITS ---
EXAMINATION: XR SHOULDER, LEFT CLINICAL INFORMATION: Reason for Exam M25.512 - Pain in left shoulder COMPARISON: None TECHNIQUE: Three views of the shoulder. FINDINGS: No acute fracture or dislocation. Loss of subacromial joint space which can be seen in the setting of rotator cuff pathology. Moderate degenerative changes of the shoulder with loss of glenohumeral joint space and bulky acromion clavicular osteophytes. Nonspecific calcification is noted in the soft tissues of the shoulder. Mediastinal surgical clips and median sternotomy wires partially imaged. XR/XR shoulder LT min 2V IMPRESSION: 1. Loss of subacromial joint space which can be seen in the setting of rotator cuff pathology. 2. Moderate degenerative changes of the shoulder.
[2023-03-11 16:17] LABS: Appearance Urine Clear; Color Urine Yellow; Glucose Urine UA >=1000 mg/dL (Negative); Leukocyte Esterase Urine Negative (Negative); Nitrite Urine Negative (Negative); PH 5.5 (5.0-9.0); Specific Gravity - Urine 1.025 (1.005-1.025); UMIC TRIGGER UACC YES; Urine Blood Negative (Negative); Urine Ketones Negative (Negative); Urine Protein Negative (Neg-Trace)
[2023-03-11 16:24] LABS: Basophils Percent Auto 0.2 % (0-2); Eosinophils Percent Auto 0.1 % (0-4); Hemoglobin 12.4 g/dl (14.0-18.0); Imm Gran Abs Auto 0.25 X10*3/uL (0.00-0.03); Imm Gran Pct Auto 1.4 % (0.0-0.4); Lymphocytes Absolute Auto 0.7 X10*3/uL (1.2-4.9); Lymphocytes Percent Auto 3.9 % (20-40); MANUAL DIFF FLAG SCAN; Mean Corpuscular Hemoglobin 27.9 pg (27.0-33.0); Mean Corpuscular Volume 90.1 fL (80.0-98.0); Mean Platelet Volume 9.3 fL (9.4-12.4); Monocytes Absolute Auto 0.3 X10*3/uL (0.1-1.2); Monocytes Percent Auto 1.6 % (2-11); Neutrophils Absolute Auto 16.4 x10*3/uL (2.0-8.3); Neutrophils Percent Auto 92.8 % (45-73); Platelet Count 318 X10*3/uL (160-400); Red Blood Count 4.44 X10*6/uL (4.60-5.80); Red Cell Distribution Width 17.4 % (11.0-16.0); Retic HGB Equivalent 29.5 pg (30.0-35.0); Reticulocyte Percent 2.7 % (0.5-1.8); Reticulocytes Absolute 0.119 X10*6/uL (0.026-0.095); SCAN SMEAR FLAG 1; White Blood Count 17.7 X10*3/uL (4.8-10.8)
[2023-03-11 16:27] LABS: Bacteria Urine None Seen (None Seen); Hyaline Casts Urine 0-2 /LPF (0-2); RBC Urine 0-2 /HPF (0-2); Squamous Epithelial Cell Urine 0-2 /HPF (0-2); WBC Urine 0-5 /HPF (0-5)
[2023-03-11 16:40] LABS: Iron 36 mcg/dL (45-160); Percent Iron Saturation 11 % (15-50); Total Iron Binding Capacity 316 mcg/dL (228-428); Unsaturated Iron Binding 280 ug/dL
[2023-03-11 16:56] LABS: Ferritin 53 ng/mL (20-250); TSH reflex Free T4 6.62 uIU/mL (0.32-4.0)
[2023-03-11 17:20] LABS: Vitamin B12 402 pg/mL (200-900)
[2023-03-11 17:27] LABS: Free T4 (Free Thyroxine) 1.03 ng/dL (0.71-1.85)
[2023-03-11 17:34] LABS: SLIDE REVIEW VERIFIED
== END 2023-03-11 14:20 | disposition home or self-care (01) ==
LOC: HO.HMGCX 14:19
PROVIDERS: PCP Nurse Practitioner Family; Visit Provider Nurse Practitioner Family
DX: F95.9 Tic disorder, unspecified (principal); J96.90 Respiratory failure, unspecified, unspecified whether with hypoxia or hypercapnia; M25.512 Pain in left shoulder; E53.8 Deficiency of other specified B group vitamins; D64.9 Anemia, unspecified
CPT/HCPCS: 36415; 73030; 81001; 82607; 82728; 82746; 83540; 84439; 84443; 85025; 85045

== ENCOUNTER 2023-03-20 13:15 | Outpatient (AMB) | payer MEDICARE, SELFPAY ==
--- NOTE | 2023-03-20 13:55 | A.OFFVIS_ITS ---
Intake Intake Visit Reasons: Newprob- RTC tear or rupture of right shoulder Intake Note: Renard is a 72 year old Left hand dominant male who presents today for a new problem visit with complaints of bilateral shoulder pain. Patient reports that he has had ongoing shoulder pain for about a year now. Denies any previous treatment. He takes Tylenol and Aspirin for his pain which does not help. Allergies Penicillins [PENICILLINS] Allergy (Intermediate, Verified 03/04/23 16:57) ITCHY RASH HPI Newprob- RTC tear or rupture of right shoulder HPI Details Renard is a 72 year old man who presents with complaints of left shoulder pain. He states he fell several months ago and has been complaining about his left shoulder ever since. He did have right shoulder pain in the past but that has improved. Now he has pain that prevents him sleeping or using his left arm and a comfortable fashion especially with overhead motion. He is left-hand dominant. He has been diagnosed with limbic encephalitis which, according to his , results in major mood swings. It did previously result and spastic movements which have improved but it is unclear what caused him to fall but this was certainly a possible culprit. [facility] Medical History Respiratory failure Limbic encephalitis Hypotension History of blood transfusion Osteopenia Hyperparathyroidism Severe obstructive sleep apnea Hypothyroidism Familial hypocalciuric hypercalcemia Vitamin D deficiency HTN (hypertension) Carpal tunnel syndrome of left wrist Ischemic cardiomyopathy Left carpal tunnel syndrome PTSD (post-traumatic stress disorder) FÉLIX (obstructive sleep apnea) Pulmonary nodule Paroxysmal atrial fibrillation Depression CAD (coronary artery disease) Surgical History Hx of cataract Hx of total knee replacement History of AAA (abdominal aortic aneurysm) repair AICD (automatic cardioverter/defibrillator) present Hx of colonoscopy Hx of discectomy Hx of appendectomy Hx of tonsillectomy S/P CABG x 6 Family History Father CAD (coronary artery disease) Substance use disorder Mother CVA (cerebral vascular accident) Paternal Uncle Substance use disorder Other Mental health disorder Social History Household Members: Significant Other Housing: House Are you a primary urgent care physician to a significant other at home: No Do you presently have visiting nurse or other home services: No Alcohol intake: never Patient Tobacco Use Status: Current everyday Tobacco user Tobacco use type: Cigar e-Cigarette/Vaping Use: Never Used Substance Use Type: Marijuana Advance Directives Date on File: 07/27/21 service: No Current occupational status: retired Cognitive needs: No Hearing needs: No Vision needs: No Review of Systems Const All systems reviewed & are unremarkable except as noted in HPI and below Physical Exam Const General: no acute distress, alert and awake Orientation/consciousness: patient oriented x3 HEENT Head: Yes normocephalic and Yes atraumatic Eyes EOM: EOMs intact bilaterally Resp Effort & Inspection: normal respiratory effort and able to speak in complete sentences Cardio Jugular venous distension: no JVD Skin General skin exam: turgor normal Rashes: no rashes Neuro General: patient oriented x3 Extrem Other: Left shoulder with 0-70 degrees of motion with scapular recruitment. Extremely weak with empty can testing (4-/5) Psych Appearance: grossly normal Affect: normal affect Attitude: cooperative Results Reviewed Results Reviewed: I personally reviewed relevant radiographs Proximal migration of the humeral head. There is a subtle irregularity in the humeral head which may represent fracture. Assessment & Plan Assessment & Plan (1) Injury of left shoulder: Code(s): S49.92XA - Unspecified injury of left shoulder and upper arm, initial encounter Plan: This is a 72 year old woman with left shoulder pain. He certainly likely has dysfunctional rotator cuff but there does appear to be a fracture of his humeral head is well. I discussed this with him and I think it is reasonable to obtain a CT scan of the left shoulder. He will follow up once this has been completed. (2) Dysfunction of left rotator cuff: Code(s): M67.912 - Unspecified disorder of synovium and tendon, left shoulder Orders: Orders CT shoulder LT wo IV con 03/20/23 S42.92XA - Fracture of left shoulder girdle, part unspecified, initial encounter for closed fracture Coding Level of Care Code Est Pt Level 4 (28421) Diagnoses Injury of left shoulder S49.92XA Dysfunction of left rotator cuff M67.912
== END 2023-03-20 15:25 | disposition home or self-care (01) ==
PROVIDERS: PCP Nurse Practitioner Family; Visit Provider Orthopaedic Surgery
DX: S49.92XA Unspecified injury of left shoulder and upper arm, initial encounter (principal); M67.912 Unspecified disorder of synovium and tendon, left shoulder
CPT/HCPCS: 99213

== ENCOUNTER → 2023-03-20 13:15 | Outpatient (BNVA) | payer MEDICARE, SELFPAY | PROVIDERS: PCP Nurse Practitioner Family; Visit Provider Orthopaedic Surgery | DX: S49.92XA Unspecified injury of left shoulder and upper arm, initial encounter (principal); M67.912 Unspecified disorder of synovium and tendon, left shoulder | CPT/HCPCS: 99212; J0665; J1100 ==

== ENCOUNTER 2023-04-03 13:46 | Outpatient (AMB) | payer MEDICARE, SELFPAY ==
--- NOTE | 2023-04-03 14:37 | AM.OFFVISNUR ---
Intake Intake Visit Reasons: B12 Intake Note: Pt arrived for monthly B-12 injection Allergies Penicillins [PENICILLINS] Allergy (Intermediate, Verified 03/04/23 16:57) ITCHY RASH Office Meds cyanocobalamin (vitamin B-12) 1,000 mcg/mL injection solution Performing Provider: EDOUARD Burton Performing Location: [facility] Administered by: Karey Villasenor RN on 04/03/23 14:37 Dose Route Admin Location Dispensed Lot Number Expiration Date [facility] [employer] 1,000 mcg IM left deltoid 1 mL [id number] 03/05/24 5325-4393-55 [facility] Comments: Pt supplied Coding Assessment & Plan Assessment & Plan Orders: Orders AMB Vitamin B12 Injection Patient Supplied Today E53.8 - Deficiency of other specified B group vitamins
== END 2023-04-03 15:22 | disposition home or self-care (01) ==
LOC: HO.HMGC 13:46
PROVIDERS: PCP Nurse Practitioner Family; Visit Provider Nurse Practitioner Family
DX: E53.8 Deficiency of other specified B group vitamins (principal)
CPT/HCPCS: 96372; J3420

== ENCOUNTER 2023-04-15 09:07 | Outpatient (REF) | payer MEDICARE, SELFPAY ==
--- NOTE | ~2023-04-15 | CT_ITS ---
EXAMINATION: CT SHOULDER WITHOUT CONTRAST, LEFT CLINICAL INFORMATION: Fracture of left shoulder girdle. COMPARISON: Left shoulder radiograph dated 03/11/2023. TECHNIQUE: Contiguous axial CT images of the left shoulder were obtained without contrast. Multiplanar reformats were provided and reviewed. This CT examination was performed using dose optimization techniques as appropriate, variously including the following: *Automated exposure control *Adjustment of mA and/or kV according to patient size (this includes techniques or standardized protocols for targeted exams where dose is matched to indication/reason for exam; i.e. extremities or head) *Use of iterative reconstruction technique. DOSE: 436 mGy-cm. FINDINGS: Severe glenohumeral joint space narrowing with prominent flattening/bony remodeling of the femoral head measuring up to 3.6 cm in craniocaudal dimension. There is mild subchondral sclerosis. Marginal osteophytes. Findings likely represent the sequela of a chronic inflammatory or degenerative arthropathy. Large glenohumeral joint effusion with scattered synovial calcifications. Mild posterior and superior subluxation of the humeral head. No acute fracture or dislocation. No evidence of avascular necrosis. Attenuation of the supraspinatus and infraspinatus tendons, likely indicating partial tearing. Severe muscle atrophy. Evaluation significantly limited on CT examination. No soft tissue mass or fluid collection. The visualized left lung is clear. Coronary artery atherosclerotic calcifications and postsurgical change consistent with CABG are noted. CT/CT shoulder LT wo IV con IMPRESSION: 1. Severe glenohumeral osteoarthritis with prominent flattening/bony remodeling of the humeral head. Large joint effusion with scattered synovial calcifications. Findings likely represent the sequela of a chronic inflammatory or degenerative arthropathy. 2. Attenuation of the supraspinatus and infraspinatus tendons, likely indicating partial tearing. Severe muscle atrophy. Evaluation significantly limited on CT examination.
== END 2023-04-15 09:08 | disposition home or self-care (01) ==
LOC: HO.CT 09:07
PROVIDERS: PCP Nurse Practitioner Family; Visit Provider Orthopaedic Surgery
DX: S42.92XA Fracture of left shoulder girdle, part unspecified, initial encounter for closed fracture (principal)
CPT/HCPCS: 73200

== ENCOUNTER 2023-05-08 13:35 | Outpatient (AMB) | payer MEDICARE, SELFPAY ==
--- NOTE | 2023-05-08 13:50 | AM.OFFVISNUR ---
Intake Intake Visit Reasons: B12 Intake Note: Pt arrived for monthly B-12 injection Allergies Penicillins [PENICILLINS] Allergy (Intermediate, Verified 03/04/23 16:57) ITCHY RASH Office Meds cyanocobalamin (vitamin B-12) 1,000 mcg/mL injection solution Performing Provider: EDOUARD Burton Performing Location: [facility] Administered by: Karey Villasenor RN on 05/08/23 13:50 Dose Route Admin Location Dispensed Lot Number Expiration Date [facility] [employer] 1,000 mcg IM left deltoid 1 mL [id number] 03/05/24 2581-9272-74 [facility] Comments: Pt supplied Coding Assessment & Plan Assessment & Plan Orders: Orders AMB Vitamin B12 Injection Patient Supplied Today E53.8 - Deficiency of other specified B group vitamins
== END 2023-05-08 14:40 | disposition home or self-care (01) ==
LOC: HO.HMGC 13:35
PROVIDERS: PCP Nurse Practitioner Family; Visit Provider Nurse Practitioner Family
DX: E53.8 Deficiency of other specified B group vitamins (principal)
CPT/HCPCS: 96372; J3420

== ENCOUNTER 2023-05-15 10:40 | Outpatient (REF) | payer MEDICARE, SELFPAY ==
[2023-05-15 13:36] LABS: Alanine Aminotransferase 26 U/L (0-40); Albumin Level 4.3 g/dL (3.5-5.0); Alkaline Phosphatase 107 U/L (39-117); Anion Gap 12 (12-20); Aspartate Amino Transferase 16 U/L (5-37); Bilirubin Total 0.6 mg/dL (0.0-1.0); Blood Urea Nitrogen 16 mg/dL (9-16); Calcium 9.7 mg/dL (8.4-10.2); Carbon Dioxide 25 mmol/L (22-29); Chloride 109 mmol/L (96-108); Cholesterol 179 mg/dL (<200); Estimated Glomerular Filt Rate > 60; Glucose Fasting 105 mg/dL (60-99); HDL Cholesterol 74 mg/dL (>40); LDL Cholesterol Calculated 70 mg/dL (<100); Potassium 4.5 mmol/L (3.3-5.1); Sodium 141 mmol/L (135-145); Total Protein 6.9 g/dL (6.5-8.0); Triglycerides 178 mg/dL (<150)
[2023-05-15 13:50] LABS: TSH reflex Free T4 2.34 uIU/mL (0.32-4.0)
== END 2023-05-15 10:41 | disposition home or self-care (01) ==
LOC: HO.HMGCLDS 10:40
PROVIDERS: PCP Nurse Practitioner Family; Referring Provider Internal Medicine; Visit Provider Nurse Practitioner Family
DX: R25.9 Unspecified abnormal involuntary movements (principal); R25.1 Tremor, unspecified; J96.90 Respiratory failure, unspecified, unspecified whether with hypoxia or hypercapnia; M25.512 Pain in left shoulder; R79.89 Other specified abnormal findings of blood chemistry
CPT/HCPCS: 36415; 80053; 80061; 84443

== ENCOUNTER 2023-05-20 11:28 | Outpatient (AMB) | payer MEDICARE, SELFPAY ==
--- NOTE | 2023-05-20 11:32 | MHC.PC.OV ---
Vital Signs 05/20/23 11:35 Height 6 ft Weight 201 lb 6 oz BMI 27.3 BP 126/80 Blood Pressure Location Rt brachial Position Sitting Pulse 75 Pulse Source Pulse Oximeter Pulse Oximetry (%) 98 Oxygen Delivery Method Room Air Intake Visit Reasons: Weight Parameters Allergies Penicillins [PENICILLINS] Allergy (Intermediate, Verified 05/20/23 12:00) ITCHY RASH Medication List - Last Reconciled 05/20/23 by RAYMON BurtonP-SEJAL acetaminophen 650 mg (2 x 325 mg) PO Q6H PRN 30 days acetaminophen 325 mg PO QID PRN alendronate 70 mg PO QWEEK apixaban (Eliquis) 5 mg PO BID ascorbate calcium (vitamin C) 500 mg PO DAILY cholecalciferol (vitamin D3) (D3-2000) 50 mcg PO DAILY clopidogrel 75 mg PO DAILY cyanocobalamin (vitamin B-12) 1,000 mcg IM Q4W 3 months empagliflozin (Jardiance) 10 mg PO DAILY ezetimibe 10 mg PO BEDTIME furosemide 20 mg PO DAILY isosorbide mononitrate ER 30 mg PO DAILY levothyroxine 200 mcg PO DAILY levothyroxine 25 mcg PO DAILY 90 days melatonin 3 mg PO BEDTIME PRN metoprolol succinate ER (Toprol XL) 25 mg PO DAILY midodrine 15 mg PO TID nitroglycerin (Nitrostat) 0.4 mg sublingual Q5M PRN 30 days pantoprazole 40 mg PO DAILY paroxetine HCl 30 mg PO QAM potassium chloride ER 40 mEq PO BID prednisone 60 mg PO DAILY rosuvastatin 40 mg PO DAILY sacubitril-valsartan 24-26 mg (Entresto) 1 tab PO BID sennosides (senna) 8.6 mg PO DAILY sulfamethoxazole-trimethoprim 400-80 mg 1 tab PO DAILY thiamine HCl (vitamin B1) 100 mg PO DAILY topiramate 100 mg PO DAILY valproic acid 250 mg PO BID Tobacco use date assessed: 05/20/23 Fall risk assessment: 2 + Falls in past year Last assessed Fall Risk: 05/20/23 Dental Screening Dental Screen Date: 05/20/23 Did you have a dental visit in the last 12 months?: No Did you have a dental problem in the last 6 months where you did not have access to dental care?: No Was dental information given to patient?: Patient has dentist HPI Weight Parameters HPI Details Pt is following up with neurology at [facility]. He was diagnosed with autoimmune encephalitis. Pt reports ongoing memory issues. He will continue to follow up with neurology at [facility]. Pt is on high dose prednisone for an extended period of time. He is also on valproic acid and rituximab. Will order A1C. Will order bone density as well. Denies fever, chills, and dizziness. Pt is in with his , speaks about a good experience at [facility]. I encouraged her to continue to follow up with them, and call with questions or concerns. Pt does seem easily frustrated, but able to settle down fairly quickly. The family, including the pt, will discuss being part of a autoimmune encephalitis trial at a different medical facility (mentioned to pt/pt's family at [facility]). [facility] Medical History Respiratory failure Limbic encephalitis Hypotension History of blood transfusion Osteopenia Hyperparathyroidism Severe obstructive sleep apnea Hypothyroidism Familial hypocalciuric hypercalcemia Vitamin D deficiency HTN (hypertension) Carpal tunnel syndrome of left wrist Ischemic cardiomyopathy Left carpal tunnel syndrome PTSD (post-traumatic stress disorder) FÉLIX (obstructive sleep apnea) Pulmonary nodule Paroxysmal atrial fibrillation Depression CAD (coronary artery disease) Surgical History Hx of cataract Hx of total knee replacement History of AAA (abdominal aortic aneurysm) repair AICD (automatic cardioverter/defibrillator) present Hx of colonoscopy Hx of discectomy Hx of appendectomy Hx of tonsillectomy S/P CABG x 6 Family History Father CAD (coronary artery disease) Substance use disorder Mother CVA (cerebral vascular accident) Paternal Uncle Substance use disorder Other Mental health disorder Social History Household Members: Significant Other Housing: House Are you a primary care program resident to a significant other at home: No Do you presently have visiting nurse or other home services: No Alcohol intake: never Comment: aware of trip hazard Patient Tobacco Use Status: Current someday Tobacco user Tobacco use type: Cigar e-Cigarette/Vaping Use: Never Used Substance Use Type: Marijuana Advance Directives Date on File: 07/27/21 service: No Current occupational status: retired Cognitive needs: No Hearing needs: No Vision needs: No Questionnaire PHQ-9 Over the last 2 weeks, how often have you been bothered by any of the following problems? 92185 - PHQ-9 Billing: Patient declined-do not bill Source: Developed by Drs. Jason Michel, Porsche Aguilar, Missael Lindsay and colleagues, with an educational angela from [employer]. Thrive Questionnaire Date Thrive assessed: 05/20/23 What is your living situation today?: I choose not to answer this question Within the past 12 months, did the food you bought not last and you didn't have the money to get more?: I choose not to answer this question Within the past 12 months, did you worry whether your food would run out before you got money to buy more?: I choose not to answer this question Do you have trouble paying for medicines?: I choose not to answer this question Do you have trouble getting transportation to medical appointments?: I choose not to answer this question Do you have trouble paying your heating and electricity bill?: I choose not to answer this question Do you have trouble taking care of your child, family member or friend?: I choose not to answer this question Do you have trouble with day-to-day activities such as bathing, preparing meals, shopping, managing finances, etc.?: I choose not to answer this question Are you currently unemployed and looking for a job?: I choose not to answer this question Are you interested in more education?: I choose not to answer this question TOBIAS-7 AMB Questionnaire TOBIAS-7 Date TOBIAS - 7 assessed: 05/20/23 Source: Developed by Drs. Jason Michel, Porsche Aguilar, Missael Lindsay and colleagues, with an educational angela from [employer]. TOBIAS-7 Assessment Billing TOBIAS-7 Assessment Tool: pt declined-do not bill Review of Systems Const Reports as per HPI Neuro Denies Abnormal speech present Physical exam (Primary Care) Vital Signs: Last Vital Signs Pulse 75 05/20/23 11:35 BP 126/80 05/20/23 11:35 Pulse Ox 98 05/20/23 11:35 Oxygen Delivery Method Room Air 05/20/23 11:35 BMI result Body Mass Index 27.3 Tobacco/Smoking Status: Tobacco use Status Tobacco use date assessed 05/20/23 05/20/23 11:46 Patient Tobacco Use Status Current someday Tobacco 05/20/23 11:46 Tobacco use type Cigar 05/20/23 11:34 e-Cigarette/Vaping Use Never Used 05/20/23 11:34 Thrive Assessment: Date of Thrive Assessment Date Thrive assessed 05/20/23 05/20/23 11:47 Const General: cooperative Orientation/consciousness: patient oriented x3 Chest Chest palpation & inspection: normal inspection of the chest Resp Other: ARVIN wheeze, otherwise clear throughout Effort & Inspection: normal respiratory effort Cardio Rate: regular rate Rhythm: regular rhythm Heart sounds: S1 normal heart sound present and S2 normal heart sound present Neuro General: patient oriented x3 Cranial nerves: Yes CN's II-XII intact bilaterally and Yes Facial sensation intact/muscles of mastication intact Speech: No Abnormal speech present Gait exam (Neuro): Normal gait present Extrem Right lower extremity: no edema Left lower extremity: no edema Psych Appearance: grossly normal Speech and movement: Normal speech and movement present Affect: normal affect Attitude: cooperative Assessment and Plan Assessment & Plan (1) Autoimmune encephalitis: Code(s): G04.81 - Other encephalitis and encephalomyelitis Plan: Labs ordered, continue to follow up with neuro in [place] (2) CAD (coronary artery disease): Code(s): I25.10 - Atherosclerotic heart disease of [place] coronary artery without angina pectoris Plan: Labs ordered sees cardiology (3) Memory loss: Comment: Subacute onset Code(s): R41.3 - Other amnesia Plan: Labs ordered, continue to follow up with neuro (4) Screening PSA (prostate specific antigen): Code(s): Z12.5 - Encounter for screening for malignant neoplasm of prostate Plan: PSA ordered (5) On prednisone therapy: Code(s): Z79.52 - terminal makeup operator (current) use of systemic steroids Plan: A1C ordered, labs, bone density, started on calcium supplements, already on vitamin d (6) B12 deficiency: Code(s): E53.8 - Deficiency of other specified B group vitamins Plan: switching over to vitamin b12 oral, will follow up testing in the future (levels) Plan The patient agreed to the use of a biomedical field service engineer for this encounter. Scribed for AMELIA Parker- by Debbie Dior biomedical field service engineer, on 05/20/2023 at 12:00 EST. Orders: Orders TSH reflex Free T4 Today G04.81 - Other encephalitis and encephalomyelitis, I25.10 - Atherosclerotic heart disease of [place] coronary artery without angina pectoris, R41.3 - Other amnesia Lipid Panel Today G04.81 - Other encephalitis and encephalomyelitis, I25.10 - Atherosclerotic heart disease of [place] coronary artery without angina pectoris, R41.3 - Other amnesia Prostate Specific Antigen Scr Today Z12.5 - Encounter for screening for malignant neoplasm of prostate Valproate Today G04.81 - Other encephalitis and encephalomyelitis XR DEXA axial skeleton Today Z79.52 - terminal makeup operator (current) use of systemic steroids Complete Blood Count Auto Diff Today G04.81 - Other encephalitis and encephalomyelitis, I25.10 - Atherosclerotic heart disease of [place] coronary artery without angina pectoris, R41.3 - Other amnesia Comprehensive [place]. Panel Fast Today G04.81 - Other encephalitis and encephalomyelitis, I25.10 - Atherosclerotic heart disease of [place] coronary artery without angina pectoris, R41.3 - Other amnesia UA CC w/rflx Micro + Cult Today G04.81 - Other encephalitis and encephalomyelitis, I25.10 - Atherosclerotic heart disease of [place] coronary artery without angina pectoris, R41.3 - Other amnesia Hemoglobin A1c Today G04.81 - Other encephalitis and encephalomyelitis, Z79.52 - care home (current) use of systemic steroids Medications: New calcium carbonate 500 mg PO BID 90 days 180 tabs 2RF mecobalamin (vitamin B12) (B12 Active) please stop injectable b12 and take oral b12 1,000 mcg PO DAILY 90 tabs 2RF Discontinued cyanocobalamin (vitamin B-12) Discontinued Reason: Doctor's Order 1,000 mcg IM Q4W 3 months 3 mL 0RF E53.8 - Deficiency of other specified B group vitamins Coding Level of Care Code Est Pt Level 3 (00530) Diagnoses Autoimmune encephalitis G04.81 CAD (coronary artery disease) I25.10 Memory loss R41.3 Screening PSA (prostate specific antigen) Z12.5 On prednisone therapy Z79.52 B12 deficiency E53.8
[2023-05-20 11:35] VITALS: BP 126/80; PULSE 75; O2SAT 98; BMI 27.3
== END 2023-05-20 12:24 | disposition home or self-care (01) ==
PROVIDERS: PCP Nurse Practitioner Family; Visit Provider Nurse Practitioner Family
DX: G04.81 Other encephalitis and encephalomyelitis (principal); I25.10 Atherosclerotic heart disease of native coronary artery without angina pectoris; R41.3 Other amnesia; Z12.5 Encounter for screening for malignant neoplasm of prostate; Z79.52 Long term (current) use of systemic steroids; E53.8 Deficiency of other specified B group vitamins
CPT/HCPCS: 99213

== ENCOUNTER 2023-06-20 10:18 | Outpatient (REF) | payer MEDICARE, SELFPAY ==
--- NOTE | ~2023-06-20 | MM_ITS ---
EXAMINATION: BONE DENSITOMETRY CLINICAL INDICATION: Long-term (current) use of systemic steroids. Hyperparathyroid. COMPARISON: Baseline BD dated 12/14/2020. TECHNIQUE: Using a [employer] DXA System (software version: 13.1) manufactured by [employer], dual-energy x-ray absorptiometry was performed of the lumbar spine, left hip, and left forearm radius 33%. The images are of good technical quality. Summary results are attached. FINDINGS: LEFT FEMUR, NECK: Current: BMD 0.660 g/cm2, Z-score -2.3, T-score -3.2, osteoporosis. Baseline: BMD 0.757 g/cm2. LEFT FEMUR, TOTAL: Current: BMD 0.685 g/cm2, Z-score -2.5, T-score -2.9, osteoporosis, 18.6% decrease from baseline (<5% change is not significant). Baseline: BMD 0.842 g/cm2. AP SPINE L1-L4: Current: BMD 1.146 g/cm2, Z-score -0.4, T-score -1.4, osteopenia, 4.8% increase from baseline (<5% change is not significant). Baseline: BMD 1.225 g/cm2. LEFT FOREARM RADIUS 33%: BMD 0.849 g/cm2, Z-score -0.4, T-score -1.4, osteopenia, 4.8% increase from baseline (<5% change is not significant). Baseline: BMD 0.810 g/cm2. IDENTIFIED RISK FACTORS: Hyperparathyroid, tobacco use (current smoker), glucocorticoids (chronic). HISTORY OF FRACTURE: None listed. MEDICATIONS: None listed. MM/XR DEXA appendicular skeleton IMPRESSION: 1. DIAGNOSIS: Osteoporosis based on the lowest T-score value of -3.2 in the femoral neck applying World Health Organization criteria. 2. 10-YEAR FRACTURE RISK PREDICTION, FRAX: According to the guidelines, FRAX calculation should only be performed on patients in the osteopenia bone density category. Therefore, FRAX was not performed on this patient. 3. Treatment Recommendations: NOF guidelines recommend consideration for treatment in postmenopausal women and men age 50 and older presenting with the following: -A hip or vertebral (clinical or morphometric) fracture. -T-score less than or equal to -2.5 at the femoral neck or spine after appropriate evaluation to exclude secondary causes. -Low bone mass at the hip or spine and a 10-year fracture probability by FRAX of greater than or equal to 3% for hip fracture or greater than or equal to 20% for major osteoporotic fracture based on the [place] adapted WHO algorithm. 4. Other Recommendations: All treatment decisions require clinical judgment and consideration of individual patient factors, including patient preferences, comorbidities, previous drug use, risk factors not captured in the FRAX model (e.g. frailty, falls, vitamin D deficiency, increased bone turnover, interval significant decline in bone density) and possible under or overestimation of fracture risk by FRAX. Additional medical evaluation for secondary cause of low bone mineral density may be appropriate. FUTURE SCAN RECOMMENDATION: People with diagnosed cases of osteoporosis or at high risk for fracture should have regular bone mineral density tests. For patients eligible for Medicare, routine testing is allowed once every 2 years. The testing frequency can be increased to one year for patients who have rapidly progressing disease, those who are receiving or discontinuing medical therapy to restore bone mass, or have additional risk factors.
== END 2023-06-20 10:19 | disposition home or self-care (01) ==
LOC: HO.MAMMO 10:18
PROVIDERS: PCP Nurse Practitioner Family; Visit Provider Nurse Practitioner Family
DX: Z13.820 Encounter for screening for osteoporosis (principal); Z79.52 Long term (current) use of systemic steroids
CPT/HCPCS: 77081

== ENCOUNTER 2023-06-24 13:48 | Outpatient (REF) | payer MEDICARE, SELFPAY ==
[2023-06-24 16:08] LABS: MANUAL DIFF FLAG NO
[2023-06-24 16:20] LABS: Appearance Urine Clear; Color Urine Yellow; Glucose Urine UA >=1000 mg/dL (Negative); Leukocyte Esterase Urine Negative (Negative); Nitrite Urine Negative (Negative); Specific Gravity - Urine 1.015 (1.005-1.025); UMIC TRIGGER UACC YES; Urine Blood Negative (Negative); Urine Ketones Negative (Negative); Urine Protein Negative (Neg-Trace)
[2023-06-24 16:22] LABS: Basophils Absolute Auto 0.1 X10*3/uL (0.0-0.2); Basophils Percent Auto 0.3 % (0-2); Eosinophils Percent Auto 0.2 % (0-4); Hematocrit 52.7 % (42.0-52.0); Hemoglobin 15.7 g/dl (14.0-18.0); Imm Gran Abs Auto 0.68 X10*3/uL (0.00-0.03); Imm Gran Pct Auto 3.9 % (0.0-0.4); Lymphocytes Absolute Auto 2.2 X10*3/uL (1.2-4.9); Lymphocytes Percent Auto 12.6 % (20-40); Mean Corpuscular HGB Conc 29.8 g/dl (31.0-36.0); Mean Corpuscular Hemoglobin 26.4 pg (27.0-33.0); Mean Corpuscular Volume 88.7 fL (80.0-98.0); Mean Platelet Volume 9.6 fL (9.4-12.4); Monocytes Absolute Auto 0.8 X10*3/uL (0.1-1.2); Monocytes Percent Auto 4.7 % (2-11); Neutrophils Absolute Auto 13.6 x10*3/uL (2.0-8.3); Neutrophils Percent Auto 78.3 % (45-73); Platelet Count 267 X10*3/uL (160-400); Red Blood Count 5.94 X10*6/uL (4.60-5.80); Red Cell Distribution Width 18.2 % (11.0-16.0); White Blood Count 17.4 X10*3/uL (4.8-10.8)
[2023-06-24 16:30] LABS: Estimated Average Glucose 134 mg/dL; Hemoglobin A1c % 6.3 % (<6.0)
[2023-06-24 16:35] LABS: Bacteria Urine None Seen (None Seen); RBC Urine 0-2 /HPF (0-2); Squamous Epithelial Cell Urine 0-2 /HPF (0-2); WBC Urine 0-5 /HPF (0-5)
[2023-06-24 16:39] LABS: Alanine Aminotransferase 19 U/L (0-40); Albumin Level 3.9 g/dL (3.5-5.0); Alkaline Phosphatase 71 U/L (39-117); Anion Gap 15 (12-20); Aspartate Amino Transferase 15 U/L (5-37); Bilirubin Total 0.4 mg/dL (0.0-1.0); Blood Urea Nitrogen 16 mg/dL (9-16); Calcium 9.5 mg/dL (8.4-10.2); Carbon Dioxide 24 mmol/L (22-29); Chloride 110 mmol/L (96-108); Cholesterol 158 mg/dL (<200); Estimated Glomerular Filt Rate 52; Glucose Fasting 219 mg/dL (60-99); Glucose Random 222 mg/dL (60-115); HDL Cholesterol 74 mg/dL (>40); LDL Cholesterol Calculated 61 mg/dL (<100); Magnesium 2.5 mg/dL (1.6-2.6); Phosphorus 2.7 mg/dL (2.7-4.5); Potassium 5.1 mmol/L (3.3-5.1); Sodium 144 mmol/L (135-145); Total Protein 6.1 g/dL (6.5-8.0); Triglycerides 115 mg/dL (<150)
[2023-06-24 16:48] LABS: Prostate Specific Antigen Scr 0.46 ng/mL (<0.05-4.0); TSH reflex Free T4 0.89 uIU/mL (0.32-4.0)
== END 2023-06-24 13:49 | disposition home or self-care (01) ==
LOC: HO.HMGCLDS 13:48
PROVIDERS: PCP Nurse Practitioner Family; Visit Provider Nurse Practitioner Family
DX: Z12.5 Encounter for screening for malignant neoplasm of prostate (principal); G04.81 Other encephalitis and encephalomyelitis; I25.10 Atherosclerotic heart disease of native coronary artery without angina pectoris; R41.3 Other amnesia; I46.9 Cardiac arrest, cause unspecified; Z79.52 Long term (current) use of systemic steroids
CPT/HCPCS: 36415; 80053; 80061; 80164; 81001; 83036; 83735; 84100; 84153; 84443; 85025

== ENCOUNTER 2023-08-01 13:45 | Outpatient (REF) | payer MEDICARE, SELFPAY ==
[2023-08-01 16:06] LABS: Appearance Urine Clear; Color Urine Yellow; Glucose Urine UA >=1000 mg/dL (Negative); Leukocyte Esterase Urine Negative (Negative); Nitrite Urine Negative (Negative); PH 6.5 (5.0-9.0); UMIC TRIGGER UACC YES; Urine Blood Negative (Negative); Urine Ketones Negative (Negative); Urine Protein Negative (Neg-Trace)
[2023-08-01 17:15] LABS: Alanine Aminotransferase 26 U/L (0-40); Alkaline Phosphatase 88 U/L (39-117); Anion Gap 11 (12-20); Aspartate Amino Transferase 24 U/L (5-37); Bilirubin Total 0.4 mg/dL (0.0-1.0); Blood Urea Nitrogen 19 mg/dL (9-16); Calcium 9.3 mg/dL (8.4-10.2); Carbon Dioxide 25 mmol/L (22-29); Chloride 108 mmol/L (96-108); Estimated Glomerular Filt Rate > 60; Glucose Random 131 mg/dL (60-115); Potassium 5.2 mmol/L (3.3-5.1); Sodium 139 mmol/L (135-145); Total Protein 6.5 g/dL (6.5-8.0)
[2023-08-01 17:24] LABS: Hematocrit 53.1 % (42.0-52.0); Hemoglobin 16.4 g/dl (14.0-18.0); Mean Corpuscular HGB Conc 30.9 g/dl (31.0-36.0); Mean Corpuscular Volume 90.8 fL (80.0-98.0); Mean Platelet Volume 9.8 fL (9.4-12.4); NRBC Pct Auto 0.1 /100WBC (0.0-0.2); Platelet Count 243 X10*3/uL (160-400); Red Blood Count 5.85 X10*6/uL (4.60-5.80); Red Cell Distribution Width 19.8 % (11.0-16.0); White Blood Count 14.4 X10*3/uL (4.8-10.8)
[2023-08-01 17:31] LABS: TSH reflex Free T4 3.12 uIU/mL (0.32-4.0)
[2023-08-01 17:39] LABS: Vitamin B12 540 pg/mL (200-900)
[2023-08-01 19:09] LABS: Bacteria Urine None Seen (None Seen); Hyaline Casts Urine 0-2 /LPF (0-2); RBC Urine 0-2 /HPF (0-2); Squamous Epithelial Cell Urine 0-2 /HPF (0-2); WBC Urine 0-5 /HPF (0-5)
[2023-08-01 19:32] LABS: Band Neutrophils Percent 2 % (3-5); Lymphocytes Absolute Manual 0.9 X10*3/uL (1.2-4.9); Lymphocytes Percent Manual 6 % (20-40); Monocytes Absolute Manual 0.9 X10*3/uL (0.1-1.2); Monocytes Percent Manual 6 % (2-11); Myelocytes Absolute 0.3 X10*/uL; Myelocytes Percent 2 %; Neutrophils Absolute Manual 12.4 X10*3/uL (2.0-8.3); Neutrophils Percent Manual 84 % (45-73)
[2023-08-01 19:36] LABS: Ovalocytes 1+ (5-14) /OIF; RBC Morphology NOTED
[2023-08-01 19:37] LABS: Platelet Estimate NORMAL (NORMAL); Platelet Morphology Comment NORMAL
== END 2023-08-01 13:46 | disposition home or self-care (01) ==
LOC: HO.HMGCLDS 13:45
PROVIDERS: PCP Nurse Practitioner Family; Visit Provider Nurse Practitioner Family
DX: I25.10 Atherosclerotic heart disease of native coronary artery without angina pectoris (principal); R53.1 Weakness; E53.8 Deficiency of other specified B group vitamins
CPT/HCPCS: 36415; 80053; 81001; 82607; 82746; 84443; 85007; 85025; 85027

== ENCOUNTER 2023-08-05 15:25 | Outpatient (AMB) | payer MEDICARE, SELFPAY ==
--- NOTE | 2023-08-05 15:28 | MHC.PC.OV ---
Vital Signs 08/05/23 15:30 Height 6 ft Weight 220 lb BMI 29.8 BP 110/74 Blood Pressure Location Rt brachial Position Sitting Pulse 58 Pulse Source Pulse Oximeter Pulse Oximetry (%) 98 Oxygen Delivery Method Room Air Intake Visit Reasons: follow up Allergies Penicillins [PENICILLINS] Allergy (Intermediate, Verified 08/05/23 15:59) ITCHY RASH Medication List - Last Reconciled 08/05/23 by AMELIA Burton-SEJAL acetaminophen 650 mg (2 x 325 mg) PO Q6H PRN 30 days acetaminophen 325 mg PO QID PRN alendronate 70 mg PO QWEEK apixaban (Eliquis) 5 mg PO BID ascorbate calcium (vitamin C) 500 mg PO DAILY calcium carbonate 500 mg PO BID 90 days cholecalciferol (vitamin D3) (D3-2000) 50 mcg PO DAILY clopidogrel 75 mg PO DAILY empagliflozin (Jardiance) 10 mg PO DAILY ezetimibe 10 mg PO BEDTIME furosemide 10 mg PO DAILY isosorbide mononitrate ER 30 mg PO DAILY levothyroxine 25 mcg PO DAILY 90 days levothyroxine 200 mcg PO DAILY mecobalamin (vitamin B12) (B12 Active) 1,000 mcg PO DAILY melatonin 3 mg PO BEDTIME PRN metoprolol succinate ER (Toprol XL) 25 mg PO DAILY midodrine 15 mg PO TID nitroglycerin (Nitrostat) 0.4 mg sublingual Q5M PRN 30 days pantoprazole 40 mg PO DAILY paroxetine HCl 30 mg (1.5 x 20 mg) PO QAM 90 days potassium chloride ER 20 mEq PO DAILY prednisone 60 mg PO DAILY rosuvastatin 40 mg PO DAILY sacubitril-valsartan 24-26 mg (Entresto) 1 tab PO BID sennosides (senna) 8.6 mg PO DAILY sulfamethoxazole-trimethoprim 400-80 mg 1 tab PO DAILY thiamine HCl (vitamin B1) 100 mg PO DAILY topiramate 100 mg PO DAILY valproic acid 250 mg PO BID Tobacco use date assessed: 05/20/23 Fall risk assessment: No Falls in past year Last assessed Fall Risk: 08/05/23 Dental Screening Dental Screen Date: 05/20/23 HPI follow up HPI Details Pt is following up with cardiology and pulmonology. Pt was on bactrim 3 days a week which was prescribed by pulmonology. This is now supposedly being prescribed by a provider at [facility], though there are multiple interactions. Pt's will contact [facility] provider for further instruction. Pt does report some shortness of breath with exertion. Otherwise he reports doing well. Pt's reports that pt lays in bed almost all day. Encouraged pt to move around more at home, pt verbalizes understanding. Pt reports some left calf discomfort. He denies any calf redness or warmth. Will order US to r/o DVT. Pt also c/o left knee pain. Will order XR. HTN: Blood pressure is stable. Will order labs. Denies fever, chills, and chest pain. [facility] Medical History (Updated 08/05/23 @ 16:11 by EDOUARD Burton) Atrial fibrillation with RVR Respiratory failure Limbic encephalitis Hypotension History of blood transfusion Osteopenia Hyperparathyroidism Severe obstructive sleep apnea Hypothyroidism Familial hypocalciuric hypercalcemia Vitamin D deficiency HTN (hypertension) Carpal tunnel syndrome of left wrist Ischemic cardiomyopathy Left carpal tunnel syndrome PTSD (post-traumatic stress disorder) FÉLIX (obstructive sleep apnea) Pulmonary nodule Paroxysmal atrial fibrillation Depression CAD (coronary artery disease) Surgical History Hx of cataract Hx of total knee replacement History of AAA (abdominal aortic aneurysm) repair AICD (automatic cardioverter/defibrillator) present Hx of colonoscopy Hx of discectomy Hx of appendectomy Hx of tonsillectomy S/P CABG x 6 Family History Father CAD (coronary artery disease) Substance use disorder Mother CVA (cerebral vascular accident) Paternal Uncle Substance use disorder Other Mental health disorder Social History Household Members: Significant Other Housing: House Are you a primary medical care manager to a significant other at home: No Do you presently have visiting nurse or other home services: No Alcohol intake: never Comment: aware of trip hazard Patient Tobacco Use Status: Current someday Tobacco user Tobacco use type: Cigar e-Cigarette/Vaping Use: Never Used Substance Use Type: Marijuana Advance Directives Date on File: 07/27/21 service: No Current occupational status: retired Cognitive needs: No Hearing needs: No Vision needs: No Questionnaire Thrive Questionnaire Date Thrive assessed: 05/20/23 TOBIAS-7 AMB Questionnaire TOBIAS-7 Date TOBIAS - 7 assessed: 05/20/23 Source: Developed by Drs. Jason Michel, Porsche Aguilar, Missael Lindsay and colleagues, with an educational angela from [employer]. Review of Systems Const Reports as per HPI Physical exam (Primary Care) Vital Signs: Last Vital Signs Pulse 58 08/05/23 15:30 BP 110/74 08/05/23 15:30 Pulse Ox 98 08/05/23 15:30 Oxygen Delivery Method Room Air 08/05/23 15:30 BMI result Body Mass Index 29.8 Tobacco/Smoking Status: Tobacco use Status Tobacco use date assessed 05/20/23 08/05/23 15:30 Patient Tobacco Use Status Current someday Tobacco 08/05/23 15:30 Tobacco use type Cigar 08/05/23 15:30 e-Cigarette/Vaping Use Never Used 08/05/23 15:30 Thrive Assessment: Date of Thrive Assessment Date Thrive assessed 05/20/23 08/05/23 15:30 Const General: cooperative Nutritional Appearance: obese Orientation/consciousness: patient oriented x3 Resp Effort & Inspection: normal respiratory effort Auscultation: clear to auscultation bilaterally Cardio Rate: regular rate Rhythm: regular rhythm Heart sounds: S1 normal heart sound present and S2 normal heart sound present Neuro General: patient oriented x3 Extrem Other: left knee: - mcmurrays, - lachmans, no left calf swelling or erythema, tenderness with touch Psych Appearance: grossly normal Speech and movement: Normal speech and movement present Affect: normal affect Attitude: cooperative Assessment and Plan Assessment & Plan (1) Pain of left calf: Code(s): M79.662 - Pain in left lower leg Plan: US ordered (2) Left knee pain: Code(s): M25.562 - Pain in left knee Plan: XR ordered (3) HTN (hypertension): Code(s): I10 - Essential (primary) hypertension Plan: Labs ordered, stable Plan The patient agreed to the use of a electromedical equipment technician for this encounter. Scribed for EDOUARD Parker by rosalee Newton scribe, on 08/05/2023 at 15:50 EST. Orders: Orders US venous duplex LE LT Today M79.662 - Pain in left lower leg XR knee LT 2V Today M25.562 - Pain in left knee Comprehensive Met. Panel Today I10 - Essential (primary) hypertension, M79.662 - Pain in left lower leg Comprehensive [place]. Panel Fast Today I10 - Essential (primary) hypertension, M79.662 - Pain in left lower leg Coding Level of Care Code Est Pt Level 3 (08281) Diagnoses Pain of left calf M79.662 Left knee pain M25.562 HTN (hypertension) I10
[2023-08-05 15:30] VITALS: BP 110/74; PULSE 58; O2SAT 98; BMI 29.8
== END 2023-08-05 16:22 | disposition home or self-care (01) ==
PROVIDERS: PCP Nurse Practitioner Family; Visit Provider Nurse Practitioner Family
DX: M79.662 Pain in left lower leg (principal); M25.562 Pain in left knee; I10 Essential (primary) hypertension
CPT/HCPCS: 99213

== ENCOUNTER 2023-08-05 16:43 | Outpatient (REF) | payer MEDICARE, SELFPAY ==
--- NOTE | ~2023-08-05 | XR_ITS ---
EXAMINATION: XR KNEE, LEFT CLINICAL INFORMATION: Pain in left knee. COMPARISON: 12/18/2022 TECHNIQUE: 2 views of the left knee. FINDINGS: Mild narrowing of the medial compartment. Tiny tricompartmental osteophytes. The bones are diffusely demineralized. Trace joint effusion. Vascular calcifications. Small calcifications projecting in the intertrochanteric region may represent loose bodies and/or superimposed vascular calcifications. XR/XR knee LT 2V IMPRESSION: Mild degenerative changes.
--- NOTE | ~2023-08-05 | US_ITS ---
EXAMINATION: US VENOUS ULTRASOUND WITH DOPPLER LOWER EXTREMITY, LEFT CLINICAL INFORMATION: Pain in the left lower leg COMPARISON: None available. TECHNIQUE: Ultrasound of the deep veins is performed from the hip to the calf with compression sonography and color and pulse Doppler assessment. Spectral analysis with color-flow imaging is performed. FINDINGS: There is normal venous compression and respiratory variation and augmented flow. The visualized common femoral vein, superficial femoral vein, profunda femoral vein, popliteal vein, and the trifurcation region shows no evidence of deep venous thrombosis. There is no significant popliteal fossa cyst. If the patient's symptoms persist, followup ultrasound in 5 days 7 days might be of value to exclude proximal propagation from a non-visualized calf vein. US/US venous duplex LE LT IMPRESSION: No DVT demonstrated in the left lower extremity.
== END 2023-08-05 16:44 | disposition home or self-care (01) ==
LOC: HO.US 16:43
PROVIDERS: Visit Provider Nurse Practitioner Family
DX: M25.562 Pain in left knee (principal); M79.662 Pain in left lower leg
CPT/HCPCS: 73560; 93971

== ENCOUNTER 2023-08-15 14:36 | Outpatient (REF) | payer MEDICARE, SELFPAY ==
[2023-08-15 16:35] LABS: Alanine Aminotransferase 23 U/L (0-40); Albumin Level 3.9 g/dL (3.5-5.0); Alkaline Phosphatase 53 U/L (39-117); Anion Gap 12 (12-20); Aspartate Amino Transferase 15 U/L (5-37); Bilirubin Total 0.5 mg/dL (0.0-1.0); Blood Urea Nitrogen 16 mg/dL (9-16); Calcium 9.3 mg/dL (8.4-10.2); Carbon Dioxide 24 mmol/L (22-29); Chloride 110 mmol/L (96-108); Estimated Glomerular Filt Rate 60; Glucose Random 197 mg/dL (60-115); Potassium 4.4 mmol/L (3.3-5.1); Sodium 142 mmol/L (135-145); Total Protein 6.3 g/dL (6.5-8.0)
== END 2023-08-15 14:37 | disposition home or self-care (01) ==
LOC: HO.HMGCLDS 14:36
PROVIDERS: PCP Nurse Practitioner Family; Visit Provider Nurse Practitioner Family
DX: M79.662 Pain in left lower leg (principal); I10 Essential (primary) hypertension
CPT/HCPCS: 36415; 80053

== ENCOUNTER 2023-11-25 14:22 | Outpatient (REF) | payer MEDICARE, SELFPAY ==
[2023-11-25 16:02] LABS: MANUAL DIFF FLAG NO
[2023-11-25 16:10] LABS: Appearance Urine Clear; Color Urine Dark Yellow; Glucose Urine UA >=1000 mg/dL (Negative); Leukocyte Esterase Urine Negative (Negative); Nitrite Urine Negative (Negative); UMIC TRIGGER UACC YES; Urine Blood Trace (Negative); Urine Ketones Trace mg/dL (Negative); Urine Protein Trace mg/dL (Neg-Trace)
[2023-11-25 16:12] LABS: Basophils Absolute Auto 0.1 X10*3/uL (0.0-0.2); Basophils Percent Auto 1.2 % (0-2); Eosinophils Absolute Auto 0.1 X10*3/uL (0.0-0.4); Eosinophils Percent Auto 1.3 % (0-4); Hematocrit 49.9 % (42.0-52.0); Hemoglobin 16.2 g/dl (14.0-18.0); Imm Gran Abs Auto 0.03 X10*3/uL (0.00-0.03); Imm Gran Pct Auto 0.5 % (0.0-0.4); Lymphocytes Absolute Auto 1.5 X10*3/uL (1.2-4.9); Lymphocytes Percent Auto 25.5 % (20-40); Mean Corpuscular HGB Conc 32.5 g/dl (31.0-36.0); Mean Corpuscular Hemoglobin 32.5 pg (27.0-33.0); Mean Platelet Volume 10.4 fL (9.4-12.4); Monocytes Absolute Auto 0.7 X10*3/uL (0.1-1.2); Monocytes Percent Auto 11.5 % (2-11); Neutrophils Absolute Auto 3.6 x10*3/uL (2.0-8.3); Platelet Count 177 X10*3/uL (160-400); Red Blood Count 4.99 X10*6/uL (4.60-5.80); Red Cell Distribution Width 12.5 % (11.0-16.0)
[2023-11-25 16:15] LABS: Bacteria Urine None Seen (None Seen); Squamous Epithelial Cell Urine 0-2 /HPF (0-2); WBC Urine 0-5 /HPF (0-5)
[2023-11-25 16:46] LABS: Alanine Aminotransferase 9 U/L (0-40); Albumin Level 3.8 g/dL (3.5-5.0); Alkaline Phosphatase 55 U/L (39-117); Anion Gap 17 (12-20); Aspartate Amino Transferase 15 U/L (5-37); Blood Urea Nitrogen 9 mg/dL (9-16); Carbon Dioxide 22 mmol/L (22-29); Chloride 109 mmol/L (96-108); Estimated Glomerular Filt Rate > 60; Glucose Fasting 112 mg/dL (60-99); Potassium 3.6 mmol/L (3.3-5.1); Sodium 144 mmol/L (135-145)
[2023-11-25 18:04] LABS: Bilirubin Total 0.5 mg/dL (0.0-1.0)
== END 2023-11-25 14:23 | disposition home or self-care (01) ==
LOC: HO.HMGCLDS 14:22
PROVIDERS: PCP Nurse Practitioner Family; Visit Provider Nurse Practitioner Family
DX: R41.0 Disorientation, unspecified (principal); R41.3 Other amnesia; I25.10 Atherosclerotic heart disease of native coronary artery without angina pectoris; R53.1 Weakness; M79.662 Pain in left lower leg; I10 Essential (primary) hypertension
CPT/HCPCS: 36415; 80053; 81001; 85025; 87086

== ENCOUNTER 2023-12-09 11:26 | Outpatient (REF) | payer MEDICARE, SELFPAY ==
[2023-12-09 13:10] LABS: Urine Cytology See Pathology rpt
[2023-12-09 13:15] LABS: Appearance Urine Clear; Color Urine Yellow; Glucose Urine UA >=1000 mg/dL (Negative); Leukocyte Esterase Urine Negative (Negative); Nitrite Urine Negative (Negative); PH 5.5 (5.0-9.0); Specific Gravity - Urine 1.025 (1.005-1.025); UMIC TRIGGER UACC YES; Urine Blood Negative (Negative); Urine Ketones Trace mg/dL (Negative); Urine Protein Negative (Neg-Trace)
[2023-12-09 13:27] LABS: Bacteria Urine None Seen (None Seen); Calcium Oxalate Crystals Urine Present; RBC Urine 0-2 /HPF (0-2); Squamous Epithelial Cell Urine 0-2 /HPF (0-2); WBC Urine 0-5 /HPF (0-5)
== END 2023-12-09 11:27 | disposition home or self-care (01) ==
LOC: HO.HMGCLDS 11:26
PROVIDERS: PCP Nurse Practitioner Family; Visit Provider Nurse Practitioner Family
DX: R31.29 Other microscopic hematuria (principal)
CPT/HCPCS: 81001; 88112

== ENCOUNTER 2023-12-16 10:19 | Outpatient (AMB) | payer MEDICARE, SELFPAY ==
[2023-12-16 10:20] VITALS: BP 110/70; PULSE 63; O2SAT 96; BMI 28.5
--- NOTE | 2023-12-16 10:20 | MHC.PC.OV ---
Vital Signs 12/16/23 10:20 Height 6 ft Weight 210 lb BMI 28.5 BP 110/70 Blood Pressure Location Rt brachial Position Sitting Pulse 63 Pulse Source Pulse Oximeter Pulse Oximetry (%) 96 Oxygen Delivery Method Room Air Intake Visit Reasons: 4M F/U Intake Note: pt is here for 4 month follow up Hide Inspector Required: No Accompanied by: Self / Same As Patient Allergies Penicillins [PENICILLINS] Allergy (Intermediate, Verified 12/16/23 10:20) ITCHY RASH Medication List - Last Reconciled 12/16/23 by AMELIA Burton-SEJAL acetaminophen 325 mg PO QID PRN alendronate 70 mg PO QWEEK apixaban (Eliquis) 5 mg PO BID ascorbate calcium (vitamin C) 500 mg PO DAILY calcium carbonate-vitamin D3 500 mg-15 mcg (600 unit) 1 tab PO BID clopidogrel 75 mg PO DAILY divalproex 500 mg PO BID dofetilide 250 mcg PO Q12H empagliflozin (Jardiance) 10 mg PO DAILY ezetimibe 10 mg PO BEDTIME furosemide 10 mg (1/2 x 20 mg) PO DAILY levothyroxine 25 mcg PO DAILY 90 days levothyroxine 200 mcg PO DAILY mecobalamin (vitamin B12) (B12 Active) 1,000 mcg PO DAILY melatonin 3 mg PO BEDTIME PRN metoprolol succinate ER (Toprol XL) 25 mg PO DAILY midodrine 15 mg PO TID modafinil 100 mg PO DAILY nitroglycerin (Nitrostat) 0.4 mg sublingual Q5M PRN 30 days pantoprazole 40 mg PO DAILY paroxetine HCl 30 mg (1.5 x 20 mg) PO QAM 90 days potassium chloride ER 40 mEq (2 x 20 mEq) PO BID rosuvastatin 40 mg PO DAILY sacubitril-valsartan 24-26 mg (Entresto) 1 tab PO BID thiamine HCl (vitamin B1) 100 mg PO DAILY valproic acid 250 mg PO BID vitamins A,C,M-ajxc-hlnrpp 4,296 mcg-226 mg-90 mg (PreserVision AREDS) 1 cap PO BID Tobacco use date assessed: 05/20/23 Fall risk assessment: No Falls in past year Last assessed Fall Risk: 12/16/23 Dental Screening Dental Screen Date: 05/20/23 HPI 4M F/U HPI Details Pt was seen in the ER on 12/05 c/o chest pain, shortness of breath, and lightheadedness. EKG showed sinus bradycardia, multiple PVCs, RBBB, unchanged from prior, no acute ST changes. Labs showed no leukocytosis, no anemia, hypokalemia at 3.2, repleted, normal renal function, normal LFTs, elevated NT proBNP at 1966. Pt's troponin was elevated at 32, repeats 30 and 29. Pt was rehydrated with IV fluids. Chest XR was negative for pneumonia or pulmonary edema. Pt was admitted for observation. He reports doing well today. He is following up with cardiology. Denies chest pain, shortness of breath, and dizziness. Pt has a hx of autoimmune encephalitis. He is seeing infectious disease. ID recommended pt have a PET scan, this has been ordered by them. He is also seeing neurology. [facility] Medical History Atrial fibrillation with RVR Respiratory failure Limbic encephalitis Hypotension History of blood transfusion Osteopenia Hyperparathyroidism Severe obstructive sleep apnea Hypothyroidism Familial hypocalciuric hypercalcemia Vitamin D deficiency HTN (hypertension) Carpal tunnel syndrome of left wrist Ischemic cardiomyopathy Left carpal tunnel syndrome PTSD (post-traumatic stress disorder) FÉLIX (obstructive sleep apnea) Pulmonary nodule Paroxysmal atrial fibrillation Depression CAD (coronary artery disease) Surgical History Hx of cataract Hx of total knee replacement History of AAA (abdominal aortic aneurysm) repair AICD (automatic cardioverter/defibrillator) present Hx of colonoscopy Hx of discectomy Hx of appendectomy Hx of tonsillectomy S/P CABG x 6 Family History Father CAD (coronary artery disease) Substance use disorder Mother CVA (cerebral vascular accident) Paternal Uncle Substance use disorder Other Mental health disorder Social History Household Members: Significant Other Housing: House Are you a primary critical care paramedic to a significant other at home: No Do you presently have visiting nurse or other home services: No Alcohol intake: never Comment: aware of trip hazard Patient Tobacco Use Status: Current someday Tobacco user Tobacco use type: Cigar e-Cigarette/Vaping Use: Never Used Substance Use Type: Marijuana Advance Directives Date on File: 07/27/21 service: No Current occupational status: retired Cognitive needs: No Hearing needs: No Vision needs: No Questionnaire PHQ-9 Over the last 2 weeks, how often have you been bothered by any of the following problems? 1. Little interest or pleasure in doing things: nearly every day 2. Feeling down, depressed, or hopeless: nearly every day 3. Trouble falling or staying asleep, or sleeping too much: nearly every day 4. Feeling tired or having little energy: nearly every day 5. Poor appetite or overeating: several days 6. Feeling bad about yourself - or that you are a failure or have let yourself or your family down: nearly every day 7. Trouble concentrating on things, such as reading the newspaper or watching television: nearly every day 8. Moving or speaking so slowly that other people could have noticed. Or the opposite - being so fidgety or restless that you have been moving around a lot more than usual: more than half the days 9. Thoughts that you would be better off or of hurting yourself in some way: several days Total score: 22 Depression Screening Interpretation: Positive (on medication, denies any SI or HI) Depression Screening Follow-up: Existing condition Depression Screening Done: Yes 81032 - PHQ-9 Billing: Yes Source: Developed by Drs. Jason Michel, Porsche Aguilar, Missael Lindsay and colleagues, with an educational angela from [employer]. Thrive Questionnaire Date Thrive assessed: 12/16/23 I am a: Parent/Caregiver What is your living situation today?: I have a steady place to live Within the past 12 months, did the food you bought not last and you didn't have the money to get more?: Often true Within the past 12 months, did you worry whether your food would run out before you got money to buy more?: Never true Do you have trouble paying for medicines?: No Do you have trouble getting transportation to medical appointments?: No Do you have trouble paying your heating and electricity bill?: No Do you have trouble taking care of your child, family member or friend?: Yes Do you have trouble with day-to-day activities such as bathing, preparing meals, shopping, managing finances, etc.?: Yes Are you currently unemployed and looking for a job?: No Are you interested in more education?: No Please select the resources that you would like help with: Housing/Longterm Currently or been in a relationship where the following occur: No concerns reported THRIVE Score: 1 AUDIT C Alcohol Use Questionnaire (AUDIT-C) 1. How often do you have a drink containing alcohol?: Never 3. How often do you have six or more drinks on one occasion?: Never Total Score: 0 Score Reviewed/Action Taken: Yes TOBIAS-7 AMB Questionnaire TOBIAS-7 Date TOBIAS - 7 assessed: 12/16/23 Feeling nervous, anxious, or on edge: 2 = More than half the days Not being able to stop or control worryin = Several days Worrying too much about different things: 1 = Several days Trouble relaxin = Several days Being so restless that it is hard to sit still: 0 = Not at all Becoming easily annoyed or irritable: 3 = Nearly every day Feeling afraid as if something awful might happen: 1 = Several days Total TOBIAS-7 score (0-4 normal; 5-9 mild; 10-14 moderate; 15-21 severe): 9 Source: Developed by Drs. Jason Michel, Porsche Aguilar, Missael Lindsay and colleagues, with an educational angela from [employer]. TOBIAS-7 Assessment Billing TOBIAS-7 Assessment Tool: TOBIAS-7 Assessment 65302 Review of Systems Const Reports as per HPI Physical exam (Primary Care) Vital Signs: Last Vital Signs Pulse 63 12/16/23 10:20 BP 110/70 12/16/23 10:20 Pulse Ox 96 12/16/23 10:20 Oxygen Delivery Method Room Air 12/16/23 10:20 BMI result Body Mass Index 28.5 Tobacco/Smoking Status: Tobacco use Status Tobacco use date assessed 05/20/23 12/16/23 10:23 Patient Tobacco Use Status Current someday Tobacco 12/16/23 10:23 Tobacco use type Cigar 12/16/23 10:23 e-Cigarette/Vaping Use Never Used 12/16/23 10:23 PHQ-9: PHQ-9 Score PHQ-9: Total score 22 12/16/23 10:23 Depression Screening Interpretation: Positive (on medication, denies any SI or HI) Depression Screening Follow-up: Existing condition Thrive Assessment: Date of Thrive Assessment Date Thrive assessed 12/16/23 12/16/23 10:23 Currently or been in a relationship where the following occur: No concerns reported Const General: cooperative Orientation/consciousness: patient oriented x3 Resp Effort & Inspection: normal respiratory effort Auscultation: clear to auscultation bilaterally Cardio Rate: regular rate Rhythm: regular rhythm Heart sounds: S1 normal heart sound present and S2 normal heart sound present Neuro General: patient oriented x3 Extrem Right lower extremity: no edema Left lower extremity: no edema Psych Appearance: grossly normal Mental Status: mental status grossly normal Speech and movement: Normal speech and movement present Affect: normal affect Attitude: cooperative Thought process: Normal thought process present Thought content: Normal thought content present Insight: Good insight present (Psych) Judgement: Good judgement present (Psych) Assessment and Plan Assessment & Plan (1) Memory loss: Comment: Subacute onset Code(s): R41.3 - Other amnesia (2) B12 deficiency: Code(s): E53.8 - Deficiency of other specified B group vitamins Plan: will recheck levels Plan The patient agreed to the use of a medical device for this encounter. Scribed for EDOUARD Parker by Debbie Dior medical device, on 12/16/2023 at 10:40 EST. Orders: Orders Complete Blood Count Auto Diff Today E53.8 - Deficiency of other specified B group vitamins, R41.3 - Other amnesia TSH reflex Free T4 Today E53.8 - Deficiency of other specified B group vitamins, R41.3 - Other amnesia Vitamin B12 and Folate Today E53.8 - Deficiency of other specified B group vitamins, R41.3 - Other amnesia Comprehensive [place]. Panel Fast Today E53.8 - Deficiency of other specified B group vitamins, R41.3 - Other amnesia UA CC w/rflx Micro + Cult Today E53.8 - Deficiency of other specified B group vitamins, R41.3 - Other amnesia Lipid Panel Today E53.8 - Deficiency of other specified B group vitamins, R41.3 - Other amnesia Referrals Cologuard Test Z12.11 - Encounter for screening for malignant neoplasm of colon, Z12.12 - Encounter for screening for malignant neoplasm of rectum Coding Level of Care Code Est Pt Level 3 (36945) Diagnoses Memory loss R41.3 B12 deficiency E53.8 Additional Codes TOBIAS-7 Assessment Billing - TOBIAS-7 Assessment Tool: TOBIAS-7 Assessment 00234 ([id number])
== END 2023-12-16 11:16 | disposition home or self-care (01) ==
PROVIDERS: PCP Nurse Practitioner Family; Visit Provider Nurse Practitioner Family
DX: R41.3 Other amnesia (principal); E53.8 Deficiency of other specified B group vitamins
CPT/HCPCS: 99213

== ENCOUNTER 2024-01-20 14:00 | Outpatient (RCR) | payer MEDICARE, SELFPAY | END 2024-07-23 10:53 | disposition home or self-care (01) | LOC: HO.PTCHIC 14:00 | PROVIDERS: PCP Nurse Practitioner Family; Visit Provider Student in an Organized Health Care Education/Training Program | DX: G04.81 Other encephalitis and encephalomyelitis (principal) | CPT/HCPCS: 97110; 97162 ==

== ENCOUNTER 2024-01-29 10:50 | Outpatient (REF) | payer MEDICARE, SELFPAY ==
--- NOTE | ~2024-01-29 | CT_ITS ---
EXAMINATION: CT ABDOMEN AND PELVIS WITHOUT AND WITH CONTRAST CLINICAL INFORMATION: Microscopic hematuria. COMPARISON: Noncontrast CT dated April 23, 2006. TECHNIQUE: Noncontrast CT of the abdomen and pelvis is performed followed by split bolus contrast-enhanced images using 85 mL Omnipaque 350 contrast. Postcontrast imaging is performed during the combined nephrogram and excretion phase. Sagittal and coronal reformatted images were obtained on the technologist's workstation for both the precontrast and postcontrast phases. This CT examination was performed using dose optimization techniques as appropriate, variously including the following: *Automated exposure control *Adjustment of mA and/or kV according to patient size (this includes techniques or standardized protocols for targeted exams where dose is matched to indication/reason for exam; i.e. extremities or head) *Use of iterative reconstruction technique DLP: 1042 mGy-cm FINDINGS: Submitted for interpretation on April 02, 2024. LUNG BASES: Calcified pleural plaques, left hemithorax. No acute airspace disease, included lung bases. Hiatal hernia, moderate size. Calcified plaques in the coronary arteries. There is wires in the epigastric region. LIVER, GALLBLADDER, AND BILIARY TREE: Liver measures 14 cm. Nodular surface. No intrahepatic or extrahepatic biliary ductal dilatation. The main portal vein appears patent. Intrahepatic portion of the IVC is grossly patent. Multiple punctate intraluminal calcifications, gallbladder. No pericholecystic fluid collection or gallbladder wall thickening. PANCREAS: No focal pancreatic mass. No peripancreatic fluid collection. No main pancreatic ductal dilatation. SPLEEN: 9 cm. Exophytic 1.2 cm low density. ADRENAL GLANDS: Soft tissue fullness measuring 11 Hounsfield units. KIDNEYS AND URETERS: Right kidney: No hydronephrosis. No gross nephrolithiasis. There is a 1.9 cm exophytic, nonseptated, nonenhancing fluid density in the anterior lateral midportion/lower pole junction. There is a 2.7 cm exophytic, nonenhancing, nonseptated, fluid density in the posterior midportion upper pole junction. Normal urinary excretion into the collecting system. There is a of segmental IV contrast enhanced distal ureter. Left kidney: No hydronephrosis. No nephrolithiasis. There is a renal cortical defect with a 1.2 cm nonenhancing, no septated fluid density in the medial aspect midportion. There is a 1.8 cm exophytic, nonenhancing, no septated fluid density in the anterior lateral upper pole. Normal urinary excretion into the collecting system. BLADDER: Trabeculated thickened wall. No intraluminal calcifications. The bladder is collapsed. GASTROINTESTINAL TRACT: Abundant stool within the large intestine. No intestinal obstruction pattern. ABDOMINAL WALL: Small fat-containing epigastric hernia. LYMPH NODES: Nonspecific less than 1 cm mesenteric lymph nodes. VASCULAR: Status post and/or aorto iliac graft stent obtained from infrarenal abdominal aortic aneurysm measuring 1 4.7 cm in maximum diameter with partially calcified and noncalcified plaque. No IV contrast extravasation within the stent or the aneurysm. Multiple vascular clips in the inguinal regions bilaterally likely related to prior vascular access. PELVIC VISCERA: The seminal vesicles are not enlarged. The prostate gland area is not enlarged. OSSEUS STRUCTURES: Multilevel thoracolumbar spondylosis. Superior endplate compression deformity representing 50% volume loss at L1 vertebra resulting in 3 mm retropulsion. Degenerative changes in the sacroiliac joints, right greater than the left side. Degenerative changes in the coxofemoral joints. CT/CT urogram IMPRESSION: No hydronephrosis or nephrolithiasis. Bilateral renal cyst Bosniak type I. Trabeculated thickened wall, urinary bladder. Recommend direct inspection. Concerning cirrhosis without ascites. Cholelithiasis. Hiatal hernia, moderate to large size. Coronary artery disease. Unilateral calcified pleural plaques, left hemithorax. Consider prior inflammatory versus infectious versus trauma etiology. Subacute to old fracture, right hemisacrum. Old superior endplate compression deformity, L1 vertebra. Electronically signed by: Willis Holder MD 04/02/2024 03:50 PM EST
[2024-01-29] MEDS: iohexoL 350 MG/ML 100 ML INFUS..BTL 85 ML IV (11:36)
[2024-01-30 06:24] LABS: GFR POC > 60
== END 2024-01-29 10:51 | disposition home or self-care (01) ==
LOC: HO.CT 10:50
PROVIDERS: PCP Nurse Practitioner Family; Visit Provider Nurse Practitioner Family
DX: R31.29 Other microscopic hematuria (principal)
CPT/HCPCS: 74178; 82565; Q9967

== ENCOUNTER → 2024-01-29 10:52 | Outpatient (BNV) | payer MEDICARE, SELFPAY | PROVIDERS: PCP Nurse Practitioner Family; Visit Provider Radiology Diagnostic Radiology | DX: R31.29 Other microscopic hematuria (principal) | CPT/HCPCS: 74178 ==

== ENCOUNTER 2024-04-19 11:20 | Outpatient (REF) | payer MEDICARE, SELFPAY ==
[2024-04-19 13:23] LABS: Appearance Urine Clear; Color Urine Yellow; Glucose Urine UA 500 mg/dL (Negative); Leukocyte Esterase Urine Negative (Negative); Nitrite Urine Negative (Negative); Specific Gravity - Urine 1.025 (1.005-1.025); Urine Blood Negative (Negative); Urine Ketones Trace mg/dL (Negative); Urine Protein Trace mg/dL (Neg-Trace)
[2024-04-19 13:34] LABS: MANUAL DIFF FLAG NO
[2024-04-19 13:52] LABS: Basophils Percent Auto 0.6 % (0-2); Eosinophils Absolute Auto 0.1 X10*3/uL (0.0-0.4); Eosinophils Percent Auto 2.2 % (0-4); Hematocrit 45.8 % (42.0-52.0); Hemoglobin 14.9 g/dl (14.0-18.0); Imm Gran Abs Auto 0.01 X10*3/uL (0.00-0.03); Imm Gran Pct Auto 0.2 % (0.0-0.4); Lymphocytes Absolute Auto 1.9 X10*3/uL (1.2-4.9); Lymphocytes Percent Auto 36.2 % (20-40); Mean Corpuscular HGB Conc 32.5 g/dl (31.0-36.0); Mean Corpuscular Volume 92.3 fL (80.0-98.0); Mean Platelet Volume 11.5 fL (9.4-12.4); Monocytes Absolute Auto 0.7 X10*3/uL (0.1-1.2); Monocytes Percent Auto 13.1 % (2-11); Neutrophils Absolute Auto 2.6 x10*3/uL (2.0-8.3); Neutrophils Percent Auto 47.7 % (45-73); Platelet Count 163 X10*3/uL (160-400); Red Blood Count 4.96 X10*6/uL (4.60-5.80); Red Cell Distribution Width 14.8 % (11.0-16.0); White Blood Count 5.4 X10*3/uL (4.8-10.8)
[2024-04-19 14:34] LABS: Alanine Aminotransferase 8 U/L (0-40); Albumin Level 4.1 g/dL (3.5-5.0); Alkaline Phosphatase 65 U/L (39-117); Anion Gap 12 (12-20); Aspartate Amino Transferase 18 U/L (5-37); Bilirubin Total 0.5 mg/dL (0.0-1.0); Blood Urea Nitrogen 10 mg/dL (9-16); Calcium 9.4 mg/dL (8.4-10.2); Carbon Dioxide 30 mmol/L (22-29); Chloride 106 mmol/L (96-108); Cholesterol 153 mg/dL (<200); Estimated Glomerular Filt Rate > 60; Glucose Fasting 89 mg/dL (60-99); HDL Cholesterol 65 mg/dL (>40); LDL Cholesterol Calculated 73 mg/dL (<100); Potassium 4.7 mmol/L (3.3-5.1); Sodium 143 mmol/L (135-145); TSH reflex Free T4 4.13 uIU/mL (0.32-4.0); Total Protein 6.3 g/dL (6.5-8.0); Triglycerides 75 mg/dL (<150)
[2024-04-19 14:38] LABS: Vitamin B12 381 pg/mL (200-900)
== END 2024-04-19 11:21 | disposition home or self-care (01) ==
LOC: HO.HMGCLDS 11:20
PROVIDERS: PCP Nurse Practitioner Family; Visit Provider Nurse Practitioner Family
DX: R41.3 Other amnesia (principal); E53.8 Deficiency of other specified B group vitamins
CPT/HCPCS: 36415; 80053; 80061; 81003; 82607; 82746; 84439; 84443; 85025

== ENCOUNTER 2024-04-22 13:37 | Outpatient (AMB) | payer MEDICARE, SELFPAY ==
[2024-04-22 13:47] VITALS: BP 108/60; PULSE 71; O2SAT 95; BMI 24.7
--- NOTE | 2024-04-22 13:47 | A.OFFPC_ITS ---
Vital Signs 04/22/24 13:47 Height 6 ft Weight 182 lb BMI 24.7 BP 108/60 Blood Pressure Location Lt brachial Position Sitting Pulse 71 Pulse Source Pulse Oximeter Pulse Oximetry (%) 95 Oxygen Delivery Method Room Air Intake Visit Reasons: 4 month follow up Allergies Penicillins [PENICILLINS] Allergy (Intermediate, Verified 04/22/24 17:14) ITCHY RASH Medication List - Last Reconciled 04/22/24 by AMELIA Burton-SEJAL acetaminophen 325 mg PO QID PRN alendronate 70 mg PO QWEEK apixaban (Eliquis) 5 mg PO BID ascorbate calcium (vitamin C) 500 mg PO DAILY calcium carbonate-vitamin D3 500 mg-15 mcg (600 unit) 1 tab PO BID clopidogrel 75 mg PO DAILY divalproex 500 mg PO BID dofetilide 250 mcg PO Q12H empagliflozin (Jardiance) 10 mg PO DAILY ezetimibe 10 mg PO BEDTIME furosemide 10 mg (1/2 x 20 mg) PO DAILY levothyroxine 200 mcg PO DAILY levothyroxine 50 mcg PO DAILY 90 days mecobalamin (vitamin B12) 1,000 mcg PO DAILY 90 days melatonin 3 mg PO BEDTIME PRN metoprolol succinate ER (Toprol XL) 25 mg PO DAILY midodrine 15 mg PO TID modafinil 100 mg PO DAILY nitroglycerin (Nitrostat) 0.4 mg sublingual Q5M PRN 30 days pantoprazole 40 mg PO DAILY paroxetine HCl 30 mg (1.5 x 20 mg) PO QAM 90 days potassium chloride ER 40 mEq (2 x 20 mEq) PO BID rosuvastatin 40 mg PO DAILY sacubitril-valsartan 24-26 mg (Entresto) 1 tab PO BID thiamine HCl (vitamin B1) 100 mg PO DAILY vitamins A,C,K-drke-xolrnq 4,296 mcg-226 mg-90 mg (PreserVision AREDS) 1 cap PO BID Tobacco use date assessed: 04/22/24 Last assessed Fall Risk: 04/22/24 Dental Screening Dental Screen Date: 04/22/24 Did you have a dental visit in the last 12 months?: Yes Did you have a dental problem in the last 6 months where you did not have access to dental care?: No Was dental information given to patient?: Patient has dentist HPI 4 month follow up HPI Details Chief Complaint The patient presents for follow-up care accompanied by his with concerns of weight loss and management of thyroid function. History of Present Illness The patient is a 74-year-old male presenting for follow-up of autoimmune encephalopathy, weight loss, and management of hypothyroidism. He is currently under the care of a specialist in [place] for autoimmune encephalopathy. Since the last visit, he has experienced weight loss, as noted by his who reports the patient needs reminders to eat and does not always feel hungry. His hy pothyroidism is being managed with levothyroxine, but recent thyroid function tests indicated an elevated TSH level. Social History - Accompanied by his who plays an a ctive role in his care. - Requires reminders to eat due to lack of hunger. - Weight loss noted since the last visit . Health Maintenance - Recent thyroid function tests showed e levated TSH levels, necessitating an adjustment in levothyroxine dosage. Review of Systems - General: Denies fevers, chills, night sweats. - Respiratory: Denies shortness of breat h. - Gastrointestinal: Denies nausea, vomit ing, diarrhea, constipation. - Neurological: Denies vision changes. Physical Exam General: Cooperative, healthy appearing, comfortable, no acute distress and well developed Orientation: Patient oriented x3 Limitations: No limitations Head: Normal to inspection Ears: Hearing grossly normal bilaterally Nose: Normal external nose present Face and sinus: Normal facial exam Eyes: Appearance normal, both eyes and all related structures Neck: Normal visual inspection and Yes full ROM Respiratory: Normal respiratory effort and able to speak in complete sentences. Clear to auscultation bilaterally Cardiovascular: Regular rate and rhythm. Normal S1 and S2, faint systolic murmur GI: Normal to inspection. Soft to palpation and nontender Skin: No rashes or lesions noted Neuro: Patient oriented x3, CN2 through 12 intact, finger to thumb intact, arm pull test negative, negative Romberg, able to do heel to quiñones test Extremities: Normal to inspection, no edema Results - Labs: Elevated TSH level on recent thy roid function test. Plan - Increase the patient's levothyroxine d [place] from 225 mcg to 250 mcg daily in response to elevated TSH levels. - [facility] to assess adjustment efficacy. - Evaluate serum levels at the next [facility] low-up appointment. Patient was informed and verbally consented to the use of an ambient scribe for clinic note documentation during this visit. Discussion Notes I discussed the need to increase the patient's levothyroxine dosage due to recent lab results indicating elevated TSH levels. We reviewed the importance of maintaining appropriate thyroid hormone levels to manage hypothyroidism effectively. I instructed on monitoring for any symptoms of over- or under- treatment and planned to reassess thyroid function in two months. Additionally, I advised checking B12 levels during the next follow-up to ensure comprehensive management of his condition. Patient Instructions - Take the increased dose of levothyroxi ne as prescribed, 250 mcg daily. - Monitor for any changes in symptoms lazcano ch as fatigue, weight changes, or swelling. - Return for follow-up in two months for repeat thyroid function tests and B12 level check. - Contact the office if any concerning s ymptoms arise, such as palpitations or unexplained weight gain. [facility] Medical History Atrial fibrillation with RVR Respiratory failure Limbic encephalitis Hypotension History of blood transfusion Osteopenia Hyperparathyroidism Severe obstructive sleep apnea Hypothyroidism Familial hypocalciuric hypercalcemia Vitamin D deficiency HTN (hypertension) Carpal tunnel syndrome of left wrist Ischemic cardiomyopathy Left carpal tunnel syndrome PTSD (post-traumatic stress disorder) FÉLIX (obstructive sleep apnea) Pulmonary nodule Paroxysmal atrial fibrillation Depression CAD (coronary artery disease) Surgical History Hx of cataract Hx of total knee replacement History of AAA (abdominal aortic aneurysm) repair AICD (automatic cardioverter/defibrillator) present Hx of colonoscopy Hx of discectomy Hx of appendectomy Hx of tonsillectomy S/P CABG x 6 Family History Father CAD (coronary artery disease) Substance use disorder Mother CVA (cerebral vascular accident) Paternal Uncle Substance use disorder Other Mental health disorder Social History Household Members: Significant Other Housing: House Are you a primary healthcare representative to a significant other at home: No Do you presently have visiting nurse or other home services: No Alcohol intake: never Comment: aware of trip hazard Patient Tobacco Use Status: Current someday Tobacco user Tobacco use type: Cigar e-Cigarette/Vaping Use: Never Used Substance Use Type: Marijuana Advance Directives Date on File: 07/27/21 service: No Current occupational status: retired Cognitive needs: No Hearing needs: No Vision needs: No Questionnaire Thrive Questionnaire Date Thrive assessed: 04/22/24 I am a: Parent/Caregiver What is your living situation today?: I have a steady place to live Within the past 12 months, did the food you bought not last and you didn't have the money to get more?: Often true Within the past 12 months, did you worry whether your food would run out before you got money to buy more?: Never true Do you have trouble paying for medicines?: No Do you have trouble getting transportation to medical appointments?: No Do you have trouble paying your heating and electricity bill?: No Do you have trouble taking care of your child, family member or friend?: Yes Do you have trouble with day-to-day activities such as bathing, preparing meals, shopping, managing finances, etc.?: Yes Are you currently unemployed and looking for a job?: No Are you interested in more education?: No Please select the resources that you would like help with: None Currently or been in a relationship where the following occur: No concerns reported THRIVE Score: 1 AUDIT C Alcohol Use Questionnaire (AUDIT-C) 1. How often do you have a drink containing alcohol?: Never 3. How often do you have six or more drinks on one occasion?: Never Total Score: 0 Score Reviewed/Action Taken: Yes TOBIAS-7 AMB Questionnaire TOBIAS-7 Date TOBIAS - 7 assessed: 12/16/23 Source: Developed by Drs. Jason Michel, Porsche Aguilar, Missael Lindsay and colleagues, with an educational angela from [employer]. Physical exam (Primary Care) Vital Signs: Last Vital Signs Pulse 71 04/22/24 13:47 BP 108/60 04/22/24 13:47 Pulse Ox 95 04/22/24 13:47 Oxygen Delivery Method Room Air 04/22/24 13:47 BMI result Body Mass Index 24.7 Tobacco/Smoking Status: Tobacco use Status Tobacco use date assessed 04/22/24 04/22/24 13:48 Patient Tobacco Use Status Current someday Tobacco 04/22/24 13:48 Tobacco use type Cigar 04/22/24 13:48 e-Cigarette/Vaping Use Never Used 04/22/24 13:48 Thrive Assessment: Date of Thrive Assessment Date Thrive assessed 04/22/24 04/22/24 13:48 Currently or been in a relationship where the following occur: No concerns reported Coding Level of Care Code Est Pt Level 3 (64994) Diagnoses Autoimmune encephalitis G04.81 B12 deficiency E53.8 Elevated TSH R79.89 Assessment & Plan Assessment & Plan (1) Autoimmune encephalitis: Code(s): G04.81 - Other encephalitis and encephalomyelitis Category: Medical (2) B12 deficiency: Code(s): E53.8 - Deficiency of other specified B group vitamins Category: Medical (3) Elevated TSH: Code(s): R79.89 - Other specified abnormal findings of blood chemistry Category: Medical Plan . Orders: Orders TSH reflex Free T4 2 Months E53.8 - Deficiency of other specified B group vitamins, R79.89 - Other specified abnormal findings of blood chemistry Comprehensive Met. Panel 2 Months E53.8 - Deficiency of other specified B group vitamins, R79.89 - Other specified abnormal findings of blood chemistry Vitamin B12 and Folate 2 Months E53.8 - Deficiency of other specified B group vitamins, R79.89 - Other specified abnormal findings of blood chemistry Medications: New mecobalamin (vitamin B12) 1,000 mcg PO DAILY 90 tabs 0RF 90 days Changed From levothyroxine take 25mcg with 200mcg tab for a total for 225mcg daily 25 mcg PO DAILY 90 tabs 1RF 90 days To levothyroxine take 50mcg with 200mcg tab for a total for 250mcg daily 50 mcg PO DAILY 90 tabs 1RF 90 days Discontinued mecobalamin (vitamin B12) (B12 Active) please stop injectable b12 and take oral b12 Discontinued Reason: Duplicate 1,000 mcg PO DAILY 90 tabs 2RF
== END 2024-04-22 15:06 | disposition home or self-care (01) ==
PROVIDERS: PCP Nurse Practitioner Family; Visit Provider Nurse Practitioner Family
DX: G04.81 Other encephalitis and encephalomyelitis (principal); E53.8 Deficiency of other specified B group vitamins; R79.89 Other specified abnormal findings of blood chemistry

== ENCOUNTER → 2024-04-22 13:37 | Outpatient (BNVA) | payer MEDICARE, SELFPAY | PROVIDERS: PCP Nurse Practitioner Family; Visit Provider Nurse Practitioner Family | DX: G04.81 Other encephalitis and encephalomyelitis (principal); E53.8 Deficiency of other specified B group vitamins; R79.89 Other specified abnormal findings of blood chemistry | CPT/HCPCS: 99212 ==

== ENCOUNTER 2024-06-25 14:12 | Outpatient (REF) | payer MEDICARE, SELFPAY ==
--- OUTSIDE RECORDS SUMMARY | 2024-06-25 14:36 | XMS_ITS | Clinical Summary ---
Author Organization [facility] Address [address] [place] [address] Care Team Providers Care Technical Architect Name Role Phone Mamadou Loving Primary Care Provider [phone] Zackary Martinez MD Unavailable Allergies Active Allergy Reactions Criticality Noted Date Comments Penicillins Hives Medium 03/26/2017 Medications Medication Sig Dispensed Refills Start Date End Date Status lisinopril (PRINIVIL,ZeSTRIL) 5 MG tablet Take 5 mg by mouth daily. Active furosemide (LASIX) 40 MG tablet Take 40 mg by mouth daily. Active aspirin enteric coated (ECOTRIN LOW STRENGTH) 81 MG EC tablet Take 81 mg by mouth daily. Active rosuvastatin (CRESTOR) 40 MG tablet Take 40 mg by mouth daily. Active clopidogrel (PLAVIX) 75 MG tablet Take 75 mg by mouth daily. Active isosorbide mononitrate (IMDUR) 60 MG 24 hr tablet Take 60 mg by mouth daily. Active metoPROLOL TARTRATE (LOPRESSOR) 100 MG tablet Take 100 mg by mouth 2 (two) times a day. Active nitroglycerin (NITROSTAT) 0.[address] 0.4 mg under the tongue every 5 (five) minutes as needed for chest pain. Active PANTOprazole (PROTONIX) 40 MG EC tablet Take 40 mg by mouth every morning before breakfast. Active FLUoxetine (PROzac) 40 MG capsule Take 40 mg by mouth daily. Active ezetimibe (ZeTIA) 10 MG tablet Take 10 mg by mouth daily. Active levothyroxine (SYNTHROID, LEVOTHROID) 200 MCG tablet Take 200 mcg by mouth daily on an empty stomach. Active Active Problems Problem Noted Date Diagnosed Date AAA (abdominal aortic aneurysm) without rupture 04/11/2017 Family History Medical History Relation Name Comments Coronary artery disease Father Hyperlipidemia Father Coronary artery disease Mother Hyperlipidemia Mother Relation Name Status Comments Father Mother Social History Tobacco Use Types Packs/Day Years Used Date Smoking Tobacco: Former Smokeless Tobacco: Never Sex and Gender Information Value Date Recorded Sex Assigned at Not on file Gender Identity Not on file Sexual Orientation Not on file Last Filed Vital Signs Vital Sign Reading Time Taken Comments Blood Pressure 100/60 05/15/2017 10:05 AM EST Pulse 66 04/12/2017 11:55 AM EST Temperature 36.4 ??C (97.5 ??F) 04/12/2017 11:[address] Respiratory Rate 18 04/12/2017 11:55 AM EST Oxygen Saturation 97% 04/12/2017 11:55 AM EST Inhaled Oxygen Concentration - - Weight 113 kg (250 lb) 05/15/2017 10:05 AM EST Height 182.9 cm (6') 05/15/2017 10:05 AM EST Body Mass Index 33.91 05/15/2017 10:05 AM EST Plan of Treatment Health Maintenance Due Date Last Done Comments Hepatitis C Virus Screening 1950 DTaP/Tdap/Td Vaccines (1 - Tdap) 1967 Pneumococcal Vaccines 50+ (1 of 1 - PCV) 1998 Zoster (Shingles) Vaccine (1 of 2) 1998 RSV Vaccine 60 years and old er and Patients (1 - 1-dose 75+ series) 2023 Influenza Vaccine 12/04/2023 COVID-19 Vaccine (1 - 2023-2 5 season) 2024 Hepatitis B Vaccines Aged Out No long er eligible based on patient's age to complete this topic Medical Devices Implanted Type Area Auto Polisher Device Identifier Shelf Expiration Date Model / Serial / Lot [id number] Bifurcated Endograft Implanted:Qty: 1 on 04/11/2017 by Marco Lopez MD at [facility] [employer] 02/05/2018 [id number] / Description:CAPPED PRICING $ 14,500.00 Afx [employer] Proximal Endograft Implanted:Qty: 1 on 04/11/2017 by Marco Lopez MD at [facility] [employer] 01/28/2020 [id number] 20V / [id number] / Description:CAPPED PRICING $ 14,500.00. THIS ITEM NOT CHARGEABLE. 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 - [id number] Implanted:Qty: 1 on 04/11/2017 by Marco Lopez MD at [facility] [employer] [id number] / / [id number] Advance Directives * Full Code (Latest Code Status on File) Date Activated Date Inactivated Comments 04/11/2017 1:01 PM * Full Code Date Activated Date Inactivated Comments 04/11/2017 7:06 AM 04/11/2017 1:01 PM Care Teams Technical Architect Relationship Specialty Start Date End Date Mamadou Loving [address] [place] [address] [place] [id number] PCP - General Medicine Hospitalist 03/26/17 Zackary Martinez MD [address] [place] [address] [place] [id number] Cardiovascular Disease 04/03/17
--- OUTSIDE RECORDS SUMMARY | 2024-06-25 14:36 | XMS_ITS | Encounter Summary ---
Author Organization [facility] Address [address] [place] [address] Care Team Providers Care Tennis Racket Repairer Name Role Phone Mamadou Loving Primary Care Provider [phone] Zackary Martinez MD Unavailable Encounter Details Date Type Department Care Team (Late st Contact Info) Description 04/07/2017 Scanned Document [facility] [place] [address] Marco Lopez MD [address] [address] Social History Tobacco Use Types Packs/Day Years Used Date Smoking Tobacco: Former Sex and Gender Information Value Date Recorded Sex Assigned at Not on file Gender Identity Not on file Sexual Orientation Not on file documented as of this encounter Plan of Treatment Not on file documented as of this encounter Visit Diagnoses Not on filedocumented in this encounter Care Teams Tennis Racket Repairer Relationship Specialty Start Date End Date Mamadou Loving [address] [place] [address] [place] [phone] PCP - General Medicine Hospitalist 03/26/17 Zackary Martinez MD [address] [place] [address] [place] [id number] Cardiovascular Disease 04/03/17 documented as of this encounter
--- OUTSIDE RECORDS SUMMARY | 2024-06-25 14:36 | XMS_ITS | Encounter Summary ---
Author Organization [facility] Address [address] [place] [address] Care Team Providers Care Plumbing Inspector Name Role Phone Ezra Denney NACHO Primary Care Provider [phone] Encounter Details Date Type Department Care Team (Late st Contact Info) Description 05/31/2024 Lab Requisition [facility] - Main Lab [address] [facility] [place] [phone] Eugene Wilson MD [address] [place] [address] Encounter for other general examination Social History Tobacco Use Types Packs/Day Years Used Date Smoking Tobacco: Never Assessed Sex and Gender Information Value Date Recorded Sex Assigned at Not on file Legal Sex Male 4:09 PM EST Gender Identity Not on file Sexual Orientation Not on file documented as of this encounter Plan of Treatment Upcoming Encounters Date Type Department Care Team (Late Contact Info) Description 08/17/2024 12:45 PM EDT Office Visit Endocrinology - [address] [phone] Colin Martinez MD [address] [place] [phone] documented as of this encounter Procedures Procedure Name Priority Date/Time Associated Diagnosis Comments CBC WITH AUTO DIFFERENTIAL Routine 05/31/2024 6:21 AM EST Encounter for other general examination RED - PLAIN Routine 05/31/2024 6:21 AM EST Encounter for other general examination CBC AND DIFFERENTIAL Routine 05/31/2024 6:21 AM EST Encounter for other general examination MAGNESIUM Routine 05/31/2024 6:21 AM EST Encounter for other general examination VALPROIC ACID LEVEL, TOTAL Routine 05/31/2024 6:21 AM EST Encounter for other general examination COMPREHENSIVE METABOLIC PANEL Routine 05/31/2024 6:21 AM EST Encounter for other general examination documented in this encounter Results * Red tube (05/31/2024 6:21 AM EST) Extra Tube Hold for add-ons. 05/31/2024 10:01 AM EST [facility] Comment:Auto resulted. Blood Venous blood specimen / Unknown 05/31/2024 6:21 AM EST 05/31/2024 8:39 AM EST us Eugene Wilson MD LAB BLOOD ORDERABLES Final Res ult [facility] [address] [place] [address], * CBC auto differential (05/31/2024 6:21 AM EST) WBC 6.6 4.8 - 10.8 K/mcL LAB HEMETOLOGY METHOD 05/31/2024 11:19 AM [facility] RBC 4.60 4.50 - 5.50 M/mcL LAB HEMETOLOGY METHOD 05/31/2024 11:19 AM [facility] Hemoglobin 13.7 13.5 - 17.5 g/dL LAB HEMETOLOGY METHOD 05/31/2024 11:19 AM [facility] Hematocrit 42.2 42.0 - 54.0 % LAB HEMETOLOGY METHOD 05/31/2024 11:19 AM [facility] MCV 92.1 79.0 - 98.0 FL LAB HEMETOLOGY METHOD 05/31/2024 11:19 AM [facility] MCH 29.9 27.0 - 32.0 pcg LAB HEMETOLOGY METHOD 05/31/2024 11:19 AM [facility] MCHC 32.5 32.0 - 37.0 g/dL LAB HEMETOLOGY METHOD 05/31/2024 11:19 AM [facility] RDW 14.5 11.0 - 15.0 % LAB HEMETOLOGY METHOD 05/31/2024 11:19 AM [facility] Platelets 190 130 - 400 K/mcL LAB HEMETOLOGY METHOD 05/31/2024 11:19 AM [facility] MPV 11.0 7.0 - 11.0 FL LAB HEMETOLOGY METHOD 05/31/2024 11:19 AM [facility] NRBC 0.0 <1.0 % LAB HEMETOLOGY METHOD 05/31/2024 11:19 AM [facility] NRBC Absolute 0.00 <0.10 K/mcL LAB HEMETOLOGY METHOD 05/31/2024 11:19 AM [facility] Neutrophils Relative 57.9 % LAB HEMETOLOGY METHOD 05/31/2024 11:19 AM [facility] Lymphocytes Relative 28.5 % LAB HEMETOLOGY METHOD 05/31/2024 11:19 AM [facility] Monocytes Relative 10.3 % LAB HEMETOLOGY METHOD 05/31/2024 11:19 AM [facility] Eosinophils Relative 2.4 % LAB HEMETOLOGY METHOD 05/31/2024 11:19 AM [facility] Basophils Relative 0.6 % LAB HEMETOLOGY METHOD 05/31/2024 11:19 AM [facility] Immature Granulocytes Relative 0.3 % LAB HEMETOLOGY METHOD 05/31/2024 11:19 AM EST [facility] Neutrophils Absolute 3.83 1.50 - 7.00 K/mcL LAB HEMETOLOGY METHOD 05/31/2024 11:19 AM EST [facility] Lymphocytes Absolute 1.89 1.00 - 5.00 K/mcL LAB HEMETOLOGY METHOD 05/31/2024 11:19 AM EST [facility] Monocytes Absolute 0.68 0.20 - 1.00 K/[facility] LAB HEMETOLOGY METHOD 05/31/2024 11:19 AM EST [facility] Eosinophils Absolute 0.16 0.00 - 0.50 K/[facility] LAB HEMETOLOGY METHOD 05/31/2024 11:19 AM [facility] Basophils Absolute 0.04 0.00 - 0.20 K/mcL LAB HEMETOLOGY METHOD 05/31/2024 11:19 AM EST [facility] Immature Granulocytes Absolute 0.02 0.00 - 0.03 K/[facility] HEMETOLOGY METHOD 05/31/2024 11:19 AM EST [facility] Blood Venous blood specimen / Unknown Venipuncture / Unknown 05/31/2024 6:21 AM EST 05/31/2024 7:59 AM EST us Eugene Wilson MD LAB BLOOD ORDERABLES Final Res ult [facility] [address] [place] [address], * Magnesium (05/31/2024 6:21 AM EST) Magnesium 2.2 1.9 - 2.6 mg/dL LAB CHEMISTRY METHOD 05/31/2024 9:29 AM EST [facility] Blood Venous blood specimen / Unknown Venipuncture / Unknown 05/31/2024 6:21 AM EST 05/31/2024 7:59 AM EST us Eugene Wilson MD LAB BLOOD ORDERABLES Final Res ult Performing Organization Address City/[facility]/ZIP Co de Phone Number [facility] [address] [place] [address], [place] [phone] * (ABNORMAL) Valproic acid level, total (05/31/2024 6:21 AM EST) [facility] Valproic Acid, Total 34(L) 50 - 100 mcg/mL LAB CHEMISTRY METHOD 05/31/2024 9:29 AM [facility] Blood Venous blood specimen / Unknown Venipuncture / Unknown 05/31/2024 6:21 AM EST 05/31/2024 7:59 AM EST us Eugene Wilson MD LAB BLOOD ORDERABLES Final Res ult Performing Organization Address [facility]/ZIP Co de Phone Number [facility] [address] [place] [address], [place] [phone] * (ABNORMAL) Comprehensive metabolic panel (05/31/2024 6:21 AM EST) [facility] Sodium 144 133 - 145 mmol/L LAB CHEMISTRY METHOD 05/31/2024 9:29 AM [facility] Potassium 3.6 3.5 - 5.5 mmol/L LAB CHEMISTRY METHOD 05/31/2024 9:29 AM [facility] Chloride 117(H) 96 - 110 mmol/L LAB CHEMISTRY METHOD 05/31/2024 9:29 AM [facility] CO2 22 21 - 32 mmol/L LAB CHEMISTRY METHOD 05/31/2024 9:29 AM [facility] Anion Gap 5 3 - 11 LAB CHEMISTRY METHOD 05/31/2024 9:29 AM [facility] Glucose 76 70 - 100 mg/dL LAB CHEMISTRY METHOD 05/31/2024 9:29 AM [facility] BUN 12 5 - 25 mg/dL LAB CHEMISTRY METHOD 05/31/2024 9:29 AM [facility] Creatinine 0.86 0.70 - 1.30 mg/dL LAB CHEMISTRY METHOD 05/31/2024 9:29 AM [facility] eGFR 90 >=60 mL/min/1. 73m2 LAB CHEMISTRY METHOD 05/31/2024 9:29 AM [facility] Comment:Calculation based on the??Chronic Kidney Disease Epidemiology Collaboration (CKD-EPI) equation refit??without adjustment for race. BUN/Creatinine Ratio 14.0 LAB CHEMISTRY METHOD 05/31/2024 9:29 AM [facility] Calcium 9.2 8.5 - 10.5 mg/dL LAB CHEMISTRY METHOD 05/31/2024 9:29 AM [facility] AST (SGOT) 10 10 - 42 unit/L LAB CHEMISTRY METHOD 05/31/2024 9:29 AM [facility] ALT (SGPT) 15 10 - 60 unit/L LAB CHEMISTRY METHOD 05/31/2024 9:29 AM [facility] Alkaline Phosphatase 75 42 - 121 unit/L LAB CHEMISTRY METHOD 05/31/2024 9:29 AM [facility] Total Protein 5.6(L) 6.0 - 8.0 g/dL LAB CHEMISTRY METHOD 05/31/2024 9:29 AM [facility] Albumin 3.1(L) 3.2 - 5.0 g/dL LAB CHEMISTRY METHOD 05/31/2024 9:29 AM [facility] Total Bilirubin 0.6 0.0 - 1.4 mg/dL LAB CHEMISTRY METHOD 05/31/2024 9:29 AM [facility] Blood Venous blood specimen / Unknown Venipuncture / Unknown 05/31/2024 6:21 AM EST 05/31/2024 7:59 AM EST us Eugene Wilson MD LAB BLOOD ORDERABLES Final Res ult [facility] [address] [place] [address], documented in this encounter Visit Diagnoses Diagnosis Encounter for other general examination documented in this encounter Care Teams Plumbing Inspector Relationship Specialty Start Date End Date Ezra Denney NP [address] [place], [place] PCP - General 06/24/23 documented as of this encounter
--- OUTSIDE RECORDS SUMMARY | 2024-06-25 14:36 | XMS_ITS | Encounter Summary ---
Author Organization [facility] Address [address] [place] [address] Care Team Providers Care Business Solutions Consultant Name Role Phone Ezra Denney NACHO Primary Care Provider Encounter Details Date Type Department Care Team (Late st Contact Info) Description 06/07/2024 Lab Requisition [facility] - Main Lab [address] [facility] [place] [phone] Eugene Wilson MD [address] [place] [address] Encounter for other general examination Social History [...] Description 08/17/2024 12:45 PM EDT Office Visit [facility] - [address] [phone] Colin Martinez MD [address] [place] [phone] documented as of this encounter Procedures Procedure Name Priority Date/Time Associated Diagnosis Comments COMPLETE BLOOD COUNT Routine 06/07/2024 7:01 AM EST Encounter for other general examination BASIC METABOLIC PANEL Routine 06/07/2024 7:01 AM EST Encounter for other general examination documented in this encounter Results * Complete blood count (06/07/2024 7:01 AM EST) [facility] WBC 6.1 4.8 - 10.8 K/mcL LAB HEMETOLOGY METHOD 06/07/2024 10:40 AM [facility] RBC 4.60 4.50 - 5.50 M/mcL LAB HEMETOLOGY METHOD 06/07/2024 10:40 AM [facility] Hemoglobin 13.9 13.5 - 17.5 g/dL LAB HEMETOLOGY METHOD 06/07/2024 10:40 AM [facility] Hematocrit 43.1 42.0 - 54.0 % LAB HEMETOLOGY METHOD 06/07/2024 10:40 AM [facility] MCV 93.7 79.0 - 98.0 FL LAB HEMETOLOGY METHOD 06/07/2024 10:40 AM [facility] MCH 30.2 27.0 - 32.0 pcg LAB HEMETOLOGY METHOD 06/07/2024 10:40 AM [facility] MCHC 32.3 32.0 - 37.0 g/dL LAB HEMETOLOGY METHOD 06/07/2024 10:40 AM [facility] RDW 14.6 11.0 - 15.0 % LAB HEMETOLOGY METHOD 06/07/2024 10:40 AM [facility] Platelets 187 130 - 400 K/mcL LAB HEMETOLOGY METHOD 06/07/2024 10:40 AM [facility] MPV 10.9 7.0 - 11.0 FL LAB HEMETOLOGY METHOD 06/07/2024 10:40 AM [facility] NRBC 0.0 <1.0 % LAB HEMETOLOGY METHOD 06/07/2024 10:40 AM [facility] NRBC Absolute 0.00 <0.10 K/mcL LAB HEMETOLOGY METHOD 06/07/2024 10:40 AM [facility] Blood Venous blood specimen / Unknown Venipuncture / Unknown 06/07/2024 7:01 AM EST 06/07/2024 9:23 AM EST us Eugene Wilson MD LAB BLOOD ORDERABLES Final Res ult [facility] [address] [place] [address], [place] [phone] * (ABNORMAL) Basic metabolic panel (06/07/2024 7:01 AM EST) Sodium 142 133 - 145 mmol/L LAB CHEMISTRY METHOD 06/07/2024 11:08 AM [facility] Potassium 4.0 3.5 - 5.5 mmol/L LAB CHEMISTRY METHOD 06/07/2024 11:08 AM [facility] Chloride 107 96 - 110 mmol/L LAB CHEMISTRY METHOD 06/07/2024 11:08 AM [facility] CO2 28 21 - 32 mmol/L LAB CHEMISTRY METHOD 06/07/2024 11:08 AM [facility] Anion Gap 7 3 - 11 LAB CHEMISTRY METHOD 06/07/2024 11:08 AM [facility] Glucose 65(L) 70 - 100 mg/dL LAB CHEMISTRY METHOD 06/07/2024 11:08 AM [facility] BUN 15 5 - 25 mg/dL LAB CHEMISTRY METHOD 06/07/2024 11:08 AM [facility] Creatinine 0.81 0.70 - 1.30 mg/dL LAB CHEMISTRY METHOD 06/07/2024 11:08 AM [facility] eGFR 91 >=60 mL/min/1. 73m2 LAB CHEMISTRY METHOD 06/07/2024 11:08 AM [facility] Comment:Calculation based on the??Chronic Kidney Disease Epidemiology Collaboration (CKD-EPI) equation refit??without adjustment for race. BUN/Creatinine Ratio 18.5 LAB CHEMISTRY METHOD 06/07/2024 11:08 AM EST [facility] Calcium 9.1 8.5 - 10.5 mg/dL LAB CHEMISTRY METHOD 06/07/2024 11:08 AM EST [facility] Blood Venous blood specimen / Unknown Venipuncture / Unknown 06/07/2024 7:01 AM EST 06/07/2024 9:23 AM EST us Eugene Wilson MD LAB BLOOD ORDERABLES Final Res ult [facility]) [facility] [address] [place] [address], documented in this encounter Visit Diagnoses Diagnosis Encounter for other general examination documented in this encounter Care Teams Business Solutions Consultant Relationship Specialty Start Date End Date Ezra Denney NP [address] [place], [place] PCP - General 06/24/23 documented as of this encounter
--- OUTSIDE RECORDS SUMMARY | 2024-06-25 14:36 | XMS_ITS | Encounter Summary ---
Author Organization [facility] Address [address] [place] [address] Care Team Providers Care Workforce Management Consultant Name Role Phone Mamadou Loving Primary Care Provider [phone] Zackary Martinez MD Unavailable Encounter Details Date Type Department Care Team (Late st Contact Info) Description 03/26/2017 Abstract [facility] Vascular & Endovascular Surgery [place] [address] [facility] [address] [place] [address] Trisha Vazquez, RN [address] [place] [phone] Social History Tobacco Use Types Packs/Day Years Used Date Smoking Tobacco: Former Sex and Gender Information Value Date Recorded Sex Assigned at Not on file Gender Identity Not on file Sexual Orientation Not on file documented as of this encounter Plan of Treatment Not on file documented as of this encounter Visit Diagnoses Not on filedocumented in this encounter Care Teams Workforce Management Consultant Relationship Specialty Start Date End Date Mamadou Loving [address] [place] [address] [place] [address] PCP - General Medicine Hospitalist 03/26/17 Zackary Martinez MD [address] [place] [address] [place] [address] Cardiovascular Disease 04/03/17 documented as of this encounter
--- OUTSIDE RECORDS SUMMARY | 2024-06-25 14:36 | XMS_ITS | Encounter Summary ---
Author Organization [facility] Address [address] [place] [address] Care Team Providers Care Safety Teacher Name Role Phone Mamadou Loving Primary Care Provider [phone] Zackary Martinez MD Unavailable Encounter Details Date Type Department Care Team (Late st Contact Info) Description 03/31/2017 Scanned Document [facility] Vascular & [place] [address] Marco Lopez MD [address] [phone] Social History Tobacco Use Types Packs/Day Years Used Date Smoking Tobacco: Former Sex and Gender Information Value Date Recorded Sex Assigned at Not on file Gender Identity Not on file Sexual Orientation Not on file documented as of this encounter Plan of Treatment Not on file documented as of this encounter Visit Diagnoses Not on filedocumented in this encounter Care Teams Safety Teacher Relationship Specialty Start Date End Date Mamadou Loving [address] [place] [address] [place] [address] PCP - General Medicine Hospitalist 03/26/17 Zackary Martinez MD [address] [place] [address] [place] [address] Cardiovascular Disease 04/03/17 documented as of this encounter
--- OUTSIDE RECORDS SUMMARY | 2024-06-25 14:36 | XMS_ITS | Clinical Summary ---
Author Organization [facility] Address [address] [place] [address] Phone Care Team Providers Care Jv Baseball Coach Name Role Phone Ezra Denney NP Primary Care Provider Allergies No known active allergies Encounters Date Type Department Care Team Description 06/07/2024 Lab Requisition [facility] [address] [place] [phone] Eugene Wilson MD Encounter for other general examination 05/31/2024 Lab Requisition [facility] [address] [place] [phone] Eugene Wilsno MD Encounter for other general examination from Last 3 Months Social History Tobacco Use Types Packs/Day Years Used Date Smoking Tobacco: Never Assessed Sex and Gender Information Value Date Recorded Sex Assigned at Not on file Legal Sex Male 4:09 PM EST Gender Identity Not on file Sexual Orientation Not on file Last Filed Vital Signs Vital Sign Reading Time Taken Comments Blood Pressure 126/68 09/04/2023 10:52 AM EDT Pulse 65 09/04/2023 10:52 AM EDT Temperature - - Respiratory Rate - - Oxygen Saturation - - Inhaled Oxygen Concentration - - Weight 98.4 kg (217 lb) 09/04/2023 10:52 AM EDT Height 182.9 cm (6') 09/04/2023 10:52 AM EDT Body Mass Index 29.43 09/04/2023 10:52 AM EDT Plan of Treatment Upcoming Encounters Date Type Department Care Team ([facility] st Contact Info) Description 08/17/2024 12:45 PM EDT Office Visit Endocrinology - [facility] [address] [place] [address] Colin Martinez MD [address] [place] [address] Health Maintenance Due Date Last Done Comments DTaP,Tdap,and Td Vaccines (1 - Tdap) 1969 Hepatitis A Vaccines (1 of 2 - Risk 2-dose series) 1967 Zoster Vaccines (1 of 2) 1998 Cholesterol Screening (Lipid Panel) 2022 Depression Screening 2022 Falls Risk Assessment 2022 Hepatitis C Screening 2022 Medicare Annual Wellness Visit 2022 Social Influencers of Health Screening 2022 RSV Immunization Patients 60+ Years Old (1 - 1-dose 75+ series) 2023 COVID-19 Vaccine ( season) 2024 03/09/2021, 08/02/2020, 07/05/2020 Influenza Vaccine (#1) 2024 , 03/05/2019, 01/26/2018, Additional history exists Hypertension/CHF/CAD Annual BMP Blood Test 06/07/2025 06/07/2024, 05/31/2024, 04/12/2024, Additional history exists Pneumococcal Vaccine: 50+ Years Completed 11/22/2020, 03/05/2019, 02/15/2016, Additional history exists HIB Vaccines Aged Out No longer eligi ble based on patient's age to complete this topic HPV Vaccines Aged Out No longer eligi ble based on patient's age to complete this topic Hepatitis B Vaccines Aged Out No long er eligible based on patient's age to complete this topic IPV Vaccines Aged Out No longer eligi ble based on patient's age to complete this topic MMR Vaccines Aged Out No longer eligi ble based on patient's age to complete this topic Meningococcal ACWY Vaccine Aged Out N o longer eligible based on patient's age to complete this topic Meningococcal B Vacine Aged Out No lo nger eligible based on patient's age to complete this topic RSV Immunization Patients Under 20 months Aged Out No longer eligible based on patient's age to complete this topic Varicella Vaccines Aged Out No longer eligible based on patient's age to complete this topic Procedures Procedure Name Priority Date/Time Associated Diagnosis Comments COMPLETE BLOOD COUNT Routine 06/07/2024 7:01 AM EST Encounter for other general examination BASIC METABOLIC PANEL Routine 06/07/2024 7:01 AM EST Encounter for other general examination RED - PLAIN Routine 05/31/2024 6:21 AM EST Encounter for other general examination CBC WITH AUTO DIFFERENTIAL Routine 05/31/2024 6:21 [...] AM EST Encounter for other general examination from Last 3 Months Results * Complete blood count (06/07/2024 7:01 AM EST) WBC 6.1 4.8 - 10.8 K/mcL LAB HEMETOLOGY METHOD 06/07/2024 10:40 AM [facility] RBC 4.60 4.50 - 5.50 M/mcL LAB HEMETOLOGY METHOD 06/07/2024 10:40 AM [facility] Hemoglobin 13.9 13.5 - 17.5 g/dL LAB HEMETOLOGY METHOD 06/07/2024 10:40 AM [facility] Hematocrit 43.1 42.0 - 54.0 % LAB HEMETOLOGY METHOD 06/07/2024 10:40 AM [facility] MCV 93.7 79.0 - 98.0 FL LAB HEMETOLOGY METHOD 06/07/2024 10:40 AM EST [facility] MCH 30.2 27.0 - 32.0 pcg LAB HEMETOLOGY METHOD 06/07/2024 10:40 AM EST [facility] MCHC 32.3 32.0 - 37.0 g/dL LAB HEMETOLOGY METHOD 06/07/2024 10:40 AM EST [facility] RDW 14.6 11.0 - 15.0 % LAB HEMETOLOGY METHOD 06/07/2024 10:40 AM EST [facility] Platelets 187 130 - 400 K/mcL LAB HEMETOLOGY METHOD 06/07/2024 10:40 AM [facility] MPV 10.9 7.0 - 11.0 FL LAB HEMETOLOGY METHOD 06/07/2024 10:40 AM EST [facility] NRBC 0.0 <1.0 % LAB HEMETOLOGY METHOD 06/07/2024 10:40 AM [facility] NRBC Absolute 0.00 <0.10 K/mcL LAB HEMETOLOGY METHOD 06/07/2024 10:40 AM [facility] Blood Venous blood specimen / Unknown Venipuncture / Unknown 06/07/2024 7:01 AM EST 06/07/2024 9:23 AM EST us Eugene Wilson MD LAB BLOOD ORDERABLES Final Res ult [facility] [address] [place] [address], * (ABNORMAL) Basic metabolic panel (06/07/2024 7:01 AM EST) Sodium 142 133 - 145 mmol/L LAB CHEMISTRY METHOD 06/07/2024 11:08 AM EST [facility] Potassium 4.0 3.5 - 5.5 mmol/L LAB CHEMISTRY METHOD 06/07/2024 11:08 AM [facility] Chloride 107 96 - 110 mmol/L LAB CHEMISTRY METHOD 06/07/2024 11:08 AM [facility] CO2 28 21 - 32 mmol/L LAB CHEMISTRY METHOD 06/07/2024 11:08 AM [facility] Anion Gap 7 3 - 11 LAB CHEMISTRY METHOD 06/07/2024 11:08 AM [facility] Glucose 65(L) 70 - 100 mg/dL LAB CHEMISTRY METHOD 06/07/2024 11:08 AM [facility] BUN 15 5 - 25 mg/dL LAB CHEMISTRY METHOD 06/07/2024 11:08 AM [facility] Creatinine 0.81 0.70 - 1.30 mg/dL LAB CHEMISTRY METHOD 06/07/2024 11:08 AM [facility] eGFR 91 >=60 mL/min/1. 73m2 LAB CHEMISTRY METHOD 06/07/2024 11:08 AM [facility] Comment:Calculation based on the??Chronic Kidney Disease Epidemiology Collaboration (CKD-EPI) equation refit??without adjustment for race. BUN/Creatinine Ratio 18.5 LAB CHEMISTRY METHOD 06/07/2024 11:08 AM [facility] Calcium 9.1 8.5 - 10.5 mg/dL LAB CHEMISTRY METHOD 06/07/2024 11:08 AM [facility] Blood Venous blood specimen / Unknown Venipuncture / Unknown 06/07/2024 7:01 AM EST 06/07/2024 9:23 AM EST us Eugene Wilson MD LAB BLOOD ORDERABLES Final Res ult [facility] [address] [place] [address], [place] [phone] * CBC auto differential (05/31/2024 6:21 AM EST) [facility] WBC 6.6 4.8 - 10.8 K/mcL LAB [...] AM [facility] Neutrophils Absolute 3.83 1.50 - 7.00 K/mcL LAB HEMETOLOGY METHOD 05/31/2024 11:19 AM [facility] Lymphocytes Absolute 1.89 1.00 - 5.00 K/mcL LAB HEMETOLOGY METHOD 05/31/2024 11:19 AM [facility] Monocytes Absolute 0.68 0.20 - 1.00 K/mcL LAB HEMETOLOGY METHOD 05/31/2024 11:19 AM [facility] Eosinophils Absolute 0.16 0.00 - 0.50 K/mcL LAB HEMETOLOGY METHOD 05/31/2024 11:19 AM [facility] Basophils Absolute 0.04 0.00 - 0.20 K/mcL LAB HEMETOLOGY METHOD 05/31/2024 11:19 AM [facility] Immature Granulocytes Absolute 0.02 0.00 - 0.03 K/mcL LAB HEMETOLOGY METHOD 05/31/2024 11:19 AM [facility] Blood Venous blood specimen / Unknown Venipuncture / Unknown 05/31/2024 6:21 AM EST 05/31/2024 7:59 AM EST Eugene Wilson MD LAB BLOOD ORDERABLES Final Res ult Performing Organization Address City/[facility]/ZIP Co de Phone Number [facility] [address] [place] [address], [place] [phone] * Red tube (05/31/2024 6:21 AM EST) [facility] Extra Tube Hold for add-ons. 05/31/2024 10:01 AM EST [facility] Comment:Auto resulted. Blood Venous blood specimen / Unknown 05/31/2024 6:21 AM EST 05/31/2024 8:39 AM EST Eugene Wilson MD LAB BLOOD ORDERABLES Final Res ult Performing Organization Address [facility] Co de Phone Number [facility] [address] [place] [address], [place] [phone] * Magnesium (05/31/2024 6:21 AM EST) [facility] Magnesium 2.2 1.9 - 2.6 mg/dL LAB CHEMISTRY METHOD 05/31/2024 9:29 AM EST [facility] Blood Venous blood specimen / Unknown Venipuncture / Unknown 05/31/2024 6:21 AM EST 05/31/2024 7:59 AM EST Eugene Wilson MD LAB BLOOD ORDERABLES Final Res ult Performing Organization Address City/[facility]/ZIP Co de Phone Number [facility] [address] [place] [address], [place] [phone] * (ABNORMAL) Valproic acid level, total (05/31/2024 6:21 AM EST) [facility] Valproic Acid, Total 34(L) 50 - 100 mcg/mL LAB CHEMISTRY METHOD 05/31/2024 9:29 AM [facility] Blood Venous blood specimen / Unknown Venipuncture / Unknown 05/31/2024 6:21 AM EST 05/31/2024 7:59 AM EST us Eugene Wilson MD LAB BLOOD ORDERABLES Final Res ult [facility] [address] [place] [address], * (ABNORMAL) Comprehensive metabolic panel (05/31/2024 6:21 AM EST) Sodium 144 133 - 145 mmol/L LAB [...] MD LAB BLOOD ORDERABLES Final Res ult [facility] [address] [place] [address], from Last 3 Months Insurance MEDICARE Care Teams Jv Baseball Coach Relationship Specialty Start Date End Date Ezra Denney NP [address] [place], [place] PCP - General 06/24/23
--- OUTSIDE RECORDS SUMMARY | 2024-06-25 14:36 | XMS_ITS ---
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 - ICD-10-CM) ACTIVE 01/20/2023 BIVENTRICULAR HEART FAILURE (I50.82 - ICD-10-CM) ACTIV E 01/20/2023 ACUTE RESPIRATORY FAILURE WI TH HYPOXIA (J96.01 - ICD-10-CM) ACTIVE 01/20/2023 ISCHEMIC CARDIOMYOPATHY (I25.5 - ICD-10-CM) ACTIVE 01/20/2023 UNSPECIFIED ATRIAL FIBRILLATION (I48.91 - ICD-10-CM) A CTIVE 01/20/2023 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 - ICD-10-CM) ACTIVE 01/20/2023 MAJOR DEPRESSIVE DISORDER, R ECURRENT, UNSPECIFIED (F33.9 - ICD-10-CM) ACTIVE 01/20/2023 NON-ST ELEVATION (NSTEMI) MY OCARDIAL INFARCTION (I21.4 - ICD-10-CM) ACTIVE 01/20/2023 HYPERLIPIDEMIA, UNSPECIFIED (E78.5 - ICD-10-CM) ACTIVE 01/20/2023 ESSENTIAL (PRIMARY) HYPERTENSION (I10 - ICD-10-CM) ACT CARRI 01/20/2023 ALCOHOL ABUSE, UNCOMPLICATED (F10.10 - ICD-10-CM) ACTI VE 01/20/2023 HYPOTHYROIDISM, UNSPECIFIED (E03.9 - ICD-10-CM) ACTIVE 01/20/2023 OTHER LOW BACK PAIN (M54.59 - ICD-10-CM) ACTIVE 01/20/2023 Encounters Encounter Performer Performer Role Encounter Diagnoses Location Date Discharge - Discharged to home or self care - [facility] - Private home/apt. with home health services [facility] [place] 01/20/2023 04:45 pm EDT - 02/18/2023 02:45 pm EDT Immunizations Vaccine Date Influenza 03/04/2022 12:00 am EDT Pneumococcal Conjugate Vaccine (PCV13) 1 05/05/2018 12:00 am EDT Pneumococcal Polysaccharide Vaccine (PPS V23) 11/22/2020 12:00 am EDT SARS-COV-2 (COVID-19) 08/02/2020 12:00 a m EDT SARS-COV-2 (COVID-19) 07/05/2020 12:00 a m EST SARS-COV-2 (COVID-19 BOOSTER) SARS-COV-2 (COVID-19 BOOSTER) 03/04/2022 12:00 am EDT SARS-COV-2 (COVID-19 BOOSTER) 03/09/2021 12:00 am EDT Social History
[2024-06-25 17:50] LABS: Folate 7.4 ng/mL (> or = 4.0); Vitamin B12 423 pg/mL (200-900)
[2024-06-25 17:53] LABS: Alanine Aminotransferase 10 U/L (0-40); Albumin Level 3.9 g/dL (3.5-5.0); Alkaline Phosphatase 91 U/L (39-117); Anion Gap 11 (12-20); Aspartate Amino Transferase 18 U/L (5-37); Bilirubin Total 0.5 mg/dL (0.0-1.0); Blood Urea Nitrogen 17 mg/dL (9-16); Calcium 9.4 mg/dL (8.4-10.2); Carbon Dioxide 26 mmol/L (22-29); Chloride 106 mmol/L (96-108); Estimated Glomerular Filt Rate > 60; Glucose Random 105 mg/dL (60-115); Potassium 4.4 mmol/L (3.3-5.1); Sodium 139 mmol/L (135-145); Total Protein 6.4 g/dL (6.5-8.0)
== END 2024-06-25 14:13 | disposition home or self-care (01) ==
LOC: HO.HMGCLDS 14:12
PROVIDERS: PCP Nurse Practitioner Family; Visit Provider Nurse Practitioner Family
DX: I50.9 Heart failure, unspecified (principal); E53.8 Deficiency of other specified B group vitamins; R79.89 Other specified abnormal findings of blood chemistry
CPT/HCPCS: 36415; 80053; 82607; 82746; 84443

== ENCOUNTER 2024-07-27 14:12 | Outpatient (AMB) | payer MEDICARE, SELFPAY ==
--- NOTE | 2024-07-27 14:17 | MHC.PC.OV ---
Vital Signs 07/27/24 14:19 Height 6 ft Weight 182 lb BMI 24.7 BP 104/60 Blood Pressure Location Lt brachial Position Sitting Respiration 15 Pulse 71 Pulse Source Pulse Oximeter Temp 98.3 F Temp Source Oral Pulse Oximetry (%) 98 Oxygen Delivery Method Room Air Intake Visit Reasons: HDF ~ Post hospital discharge FU Intake Note: Pt is here today for his HDF Allergies Penicillins [PENICILLINS] Allergy (Intermediate, Verified 07/27/24 14:54) ITCHY RASH Medication List - Last Reconciled 07/27/24 by Ezra Denney, NATURALIST- acetaminophen 325 mg PO QID PRN alendronate 70 mg PO QWEEK apixaban (Eliquis) 5 mg PO BID ascorbate calcium (vitamin C) 500 mg PO DAILY calcium carbonate-vitamin D3 500 mg-15 mcg (600 unit) 1 tab PO BID clopidogrel 75 mg PO DAILY divalproex 500 mg PO BID dofetilide 250 mcg PO Q12H empagliflozin (Jardiance) 10 mg PO DAILY ezetimibe 10 mg PO BEDTIME levothyroxine 200 mcg PO DAILY levothyroxine 50 mcg PO DAILY 90 days mecobalamin (vitamin B12) 1,000 mcg PO DAILY 90 days melatonin 6 mg PO BEDTIME PRN metoprolol succinate ER (Toprol XL) 12.5 mg PO DAILY midodrine 10 mg PO TID PRN modafinil 100 mg PO DAILY nitroglycerin (Nitrostat) 0.4 mg sublingual Q5M PRN 30 days pantoprazole 40 mg PO DAILY paroxetine HCl 30 mg (1.5 x 20 mg) PO QAM 90 days rosuvastatin 40 mg PO DAILY sacubitril-valsartan 24-26 mg (Entresto) 1 tab PO BID thiamine HCl (vitamin B1) 100 mg PO DAILY vitamins A,C,Z-ffad-pnqyyu 4,296 mcg-226 mg-90 mg (PreserVision AREDS) 1 cap PO BID Tobacco use date assessed: 07/27/24 Fall risk assessment: 1 Fall in past year Last assessed Fall Risk: 07/27/24 Dental Screening Dental Screen Date: 07/27/24 Did you have a dental visit in the last 12 months?: Yes Did you have a dental problem in the last 6 months where you did not have access to dental care?: Yes Was dental information given to patient?: Patient has dentist [facility] Medical History (Updated 07/27/24 @ 14:59 by EDOUARD Burton) Fall Atrial fibrillation with RVR Respiratory failure Limbic encephalitis Hypotension History of blood transfusion Osteopenia Hyperparathyroidism Severe obstructive sleep apnea Hypothyroidism Familial hypocalciuric hypercalcemia Vitamin D deficiency HTN (hypertension) Carpal tunnel syndrome of left wrist Ischemic cardiomyopathy Left carpal tunnel syndrome PTSD (post-traumatic stress disorder) FÉLIX (obstructive sleep apnea) Pulmonary nodule Paroxysmal atrial fibrillation Depression CAD (coronary artery disease) Surgical History Hx of cataract Hx of total knee replacement History of AAA (abdominal aortic aneurysm) repair AICD (automatic cardioverter/defibrillator) present Hx of colonoscopy Hx of discectomy Hx of appendectomy Hx of tonsillectomy S/P CABG x 6 Family History Father CAD (coronary artery disease) Substance use disorder Mother CVA (cerebral vascular accident) Paternal Uncle Substance use disorder Other Mental health disorder Social History Household Members: Significant Other Housing: House Are you a primary acute care clinical nurse specialist to a significant other at home: No Do you presently have visiting nurse or other home services: No Alcohol intake: never Comment: aware of trip hazard Patient Tobacco Use Status: Current someday Tobacco user Tobacco use type: Cigar e-Cigarette/Vaping Use: Never Used Substance Use Type: Marijuana Advance Directives Date on File: 07/27/21 service: No Current occupational status: retired Cognitive needs: No Hearing needs: No Vision needs: Yes Questionnaire PHQ-9 Over the last 2 weeks, how often have you been bothered by any of the following problems? 1. Little interest or pleasure in doing things: more than half the days 2. Feeling down, depressed, or hopeless: several days 3. Trouble falling or staying asleep, or sleeping too much: several days 4. Feeling tired or having little energy: several days 5. Poor appetite or overeating: not at all 6. Feeling bad about yourself - or that you are a failure or have let yourself or your family down: not at all 7. Trouble concentrating on things, such as reading the newspaper or watching television: several days 8. Moving or speaking so slowly that other people could have noticed. Or the opposite - being so fidgety or restless that you have been moving around a lot more than usual: not at all 9. Thoughts that you would be better off or of hurting yourself in some way: not at all Total score: 6 Source: Developed by Drs. Jason Michel, Porsche Aguilar, Missael Lindsay and colleagues, with an educational angela from [employer]. Thrive Questionnaire Date Thrive assessed: 07/20/24 I am a: Parent/Caregiver What is your living situation today?: I have a steady place to live Within the past 12 months, did the food you bought not last and you didn't have the money to get more?: Never true Within the past 12 months, did you worry whether your food would run out before you got money to buy more?: Never true Do you have trouble paying for medicines?: No Do you have trouble getting transportation to medical appointments?: No Do you have trouble paying your heating and electricity bill?: No Do you have trouble taking care of your child, family member or friend?: No Do you have trouble with day-to-day activities such as bathing, preparing meals, shopping, managing finances, etc.?: No Are you currently unemployed and looking for a job?: No Are you interested in more education?: No Please select the resources that you would like help with: None Currently or been in a relationship where the following occur: No concerns reported and I choose not to answer THRIVE Score: 0 AUDIT C Alcohol Use Questionnaire (AUDIT-C) 1. How often do you have a drink containing alcohol?: Never Total Score: 0 TOBIAS-7 AMB Questionnaire TOBIAS-7 Date TOBIAS - 7 assessed: 12/16/23 Feeling nervous, anxious, or on edge: 1 = Several days Not being able to stop or control worryin = Not at all Worrying too much about different things: 0 = Not at all Trouble relaxin = Not at all Being so restless that it is hard to sit still: 0 = Not at all Becoming easily annoyed or irritable: 0 = Not at all Feeling afraid as if something awful might happen: 0 = Not at all Total TOBIAS-7 score (0-4 normal; 5-9 mild; 10-14 moderate; 15-21 severe): 1 Source: Developed by Drs. Jason Michel, Porsche Aguilar, Missael Lindsay and colleagues, with an educational angela from [employer]. Physical exam (Primary Care) Vital Signs: Last Vital Signs Temp 98.3 F 07/27/24 14:19 Pulse 71 07/27/24 14:19 Resp 15 07/27/24 14:19 BP 104/60 07/27/24 14:19 Pulse Ox 98 07/27/24 14:19 Oxygen Delivery Method Room Air 07/27/24 14:19 BMI result Body Mass Index 24.7 Tobacco/Smoking Status: Tobacco use Status Tobacco use date assessed 07/27/24 07/27/24 14:26 Patient Tobacco Use Status Current someday Tobacco 07/27/24 14:26 Tobacco use type Cigar 07/27/24 14:26 e-Cigarette/Vaping Use Never Used 07/27/24 14:26 PHQ-9: PHQ-9 Score PHQ-9: Total score 6 07/27/24 14:26 Thrive Assessment: Date of Thrive Assessment Date Thrive assessed 07/20/24 07/27/24 14:26 Currently or been in a relationship where the following occur: No concerns reported and I choose not to answer Coding Level of Care Code Est Pt Level 4 (38788) Diagnoses Fall W19.XXXA Viral illness B34.9 Assessment & Plan Assessment & Plan (1) Fall: Code(s): W19.XXXA - Unspecified fall, initial encounter Category: Medical (2) Viral illness: Code(s): B34.9 - Viral infection, unspecified Category: Medical Plan . Orders: Orders Complete Blood Count Auto Diff Today B34.9 - Viral infection, unspecified TSH reflex Free T4 Today B34.9 - Viral infection, unspecified Comprehensive Met. Panel Today B34.9 - Viral infection, unspecified UA CC w/rflx Micro + Cult Today B34.9 - Viral infection, unspecified
[2024-07-27 14:19] VITALS: BP 104/60; PULSE 71; RESP 15; TEMP 36.8; O2SAT 98; BMI 24.7
== END 2024-07-27 15:20 | disposition home or self-care (01) ==
LOC: HO.HMCC 14:12
PROVIDERS: PCP Nurse Practitioner Family; Visit Provider Nurse Practitioner Family
DX: B34.9 Viral infection, unspecified (principal); W19.XXXA Unspecified fall, initial encounter

== ENCOUNTER → 2024-07-27 14:12 | Outpatient (BNVA) | payer MEDICARE, SELFPAY | PROVIDERS: PCP Nurse Practitioner Family; Visit Provider Nurse Practitioner Family | DX: B34.9 Viral infection, unspecified (principal); Z91.81 History of falling | CPT/HCPCS: 99212 ==

== ENCOUNTER 2024-10-28 14:57 | Outpatient (AMB) | payer MEDICARE, SELFPAY ==
[2024-10-28 14:59] VITALS: BP 102/66; PULSE 86; TEMP 36.9; O2SAT 93; BMI 24.3
--- NOTE | 2024-10-28 14:59 | A.OFFPC_ITS ---
Vital Signs 10/28/24 14:59 Height 6 ft Weight 179 lb 4 oz BMI 24.3 BP 102/66 Blood Pressure Location Rt brachial Position Sitting Pulse 86 Pulse Source Pulse Oximeter Temp 98.4 F Temp Source Oral Pulse Oximetry (%) 93 Oxygen Delivery Method Room Air Intake Visit Reasons: F/U chest pain [facility] Assistant Restaurant General Manager Required: No Allergies Penicillins (PENICILLINS) Allergy (Intermediate, Verified 10/28/24 15:02) ITCHY RASH Tobacco use date assessed: 07/27/24 Fall risk assessment: 2 + Falls in past year Last assessed Fall Risk: 10/28/24 Dental Screening Dental Screen Date: 07/27/24 Did you have a dental visit in the last 12 months?: Yes Did you have a dental problem in the last 6 months where you did not have access to dental care?: No Was dental information given to patient?: Patient has dentist HPI HPI Comments History of Present Illness Details Patient is a 74-year-old male with a past medical history which is quite complex, he has a history of CAD status post CABG x3 with prior PCIs including the RCA PCI and SVG to OM PCI both of which are occluded and chronic total occlusions from the proximal RCA and left coronary system, ischemic cardiomyopathy, LVEF 20-30% status post ICD/pacer placement, paroxysmal AFib on apixaban and dofetilide, AAA, hypertension, HLD, prior alcohol dependence, prior encephalitis and COVID infection, progressive frailty and minimal cognitive dec line, hypothyroidism, mood disorder, seizure disorder, orthostatic hypotension started on midodrine in 10/09/2024 who was recently admitted to [facility] for worsening chronic stable angina.? Cardiology medically managed him for that admission and he presented again on October 12 with a similar complaint. In the ED, the troponins were not significantly elevated. Cardiology evaluated him and recommended possible repeat coronary and bypass angiography with consideration of DAUB COLOR MIXER PCI if suitable anatomy was found. During the hospitalization he was bradycardic and hypotensive.? Cardiology recommended adding ranolazine to his regimen and he was discharged on October 14.He returned to [facility] on October 18 with recurrent chest pain, he did have some sublingual nitro which did not relieve his pain so he was admitted for further workup.? On October 20 [facility]iology did a repeat coronary and bypass angiogram catheterization and they concluded he had unstable angina, multivessel CAD, a patent HARTLEY to mid LAD, occluded saphenous graft to marginal, diagonal and rPDA and normal LV filling pressures. Due to risk factors it was determined he should optimize antianginal therapy with no other options.? However, Cardiology was going to set him up to talk with somebody to see if he would be a candidate for enrollment in the Cosira trial which is a coronary sinus paint pourer for refractory angina.? The patient was discharged on 10/21.? Before their discharge, the patient's mentioned that the patient was suicidal will not and he was placed on a suicide watch for 5 days on 10/16 but he left due to the chest pain. and she is looking for a psychiatric appointment. [facility] gave her the information.? The hospitalist's notes that the patient did not express any suicidal ideations during their evaluation at the hospital. Since his discharge, the patient reports continued chronic angina, started taking the ranolazine with no improvement so far, it's been 10 days.?He admits to some sweating and nausea. Notabley, his is most concerned with the fact that he threatens to get his revolver and kill himself on a daily basis because he feels like his health issues are such a burden. He has an appt with [facility] on 11/18. He takes paroxotine 30mg daily but he was on a higher dose. He has panic attacks and was given lorazepam which worked well but was never given it upon discharge. He does not have a therapist or psychiatric doctor or prescriber. [facility] Medical History (Updated 10/28/24 @ 15:38 by Gina Philippe PA-C) STEMI (ST elevation myocardial infarction) Fall Atrial fibrillation with RVR Respiratory failure Limbic encephalitis Hypotension History of blood transfusion Osteopenia Hyperparathyroidism Severe obstructive sleep apnea Hypothyroidism Familial hypocalciuric hypercalcemia Vitamin D deficiency HTN (hypertension) Carpal tunnel syndrome of left wrist Ischemic cardiomyopathy Left carpal tunnel syndrome PTSD (post-traumatic stress disorder) FÉLIX (obstructive sleep apnea) Pulmonary nodule Paroxysmal atrial fibrillation Depression CAD (coronary artery disease) Surgical History (Reviewed 12/16/23 @ 11:47 by Ezra Denney [facility]-) Hx of cataract Hx of total knee replacement History of AAA (abdominal aortic aneurysm) repair AICD (automatic cardioverter/defibrillator) present Hx of colonoscopy Hx of discectomy Hx of appendectomy Hx of tonsillectomy S/P CABG x 6 Family History Father CAD (coronary artery disease) Substance use disorder Mother CVA (cerebral vascular accident) Paternal Uncle Substance use disorder Other Mental health disorder Social History Household Members: Significant Other Housing: House Are you a primary care taker to a significant other at home: No Do you presently have visiting nurse or other home services: No Alcohol intake: never Comment: aware of trip hazard Patient Tobacco Use Status: Current everyday Tobacco user Tobacco use type: Cigar e-Cigarette/Vaping Use: Never Used Substance Use Type: Marijuana Advance Directives Date on File: 07/27/21 service: No Current occupational status: retired Cognitive needs: No Hearing needs: No Vision needs: Yes Questionnaire PHQ-9 Over the last 2 weeks, how often have you been bothered by any of the following problems? 1. Little interest or pleasure in doing things: more than half the days 2. Feeling down, depressed, or hopeless: several days 3. Trouble falling or staying asleep, or sleeping too much: several days 4. Feeling tired or having little energy: several days 5. Poor appetite or overeating: not at all 6. Feeling bad about yourself - or that you are a failure or have let yourself or your family down: not at all 7. Trouble concentrating on things, such as reading the newspaper or watching television: several days 8. Moving or speaking so slowly that other people could have noticed. Or the opposite - being so fidgety or restless that you have been moving around a lot more than usual: not at all 9. Thoughts that you would be better off or of hurting yourself in some way: not at all Total score: 6 Source: Developed by Drs. Jason iMchel, Porsche Aguilar, Missael Lindsay and colleagues, with an educational angela from [employer]. Thrive Questionnaire Date Thrive assessed: 07/20/24 I am a: Parent/Caregiver What is your living situation today?: I have a steady place to live Within the past 12 months, did the food you bought not last and you didn't have the money to get more?: Never true Within the past 12 months, did you worry whether your food would run out before you got money to buy more?: Never true Do you have trouble paying for medicines?: No Do you have trouble getting transportation to medical appointments?: No Do you have trouble paying your heating and electricity bill?: No Do you have trouble taking care of your child, family member or friend?: No Do you have trouble with day-to-day activities such as bathing, preparing meals, shopping, managing finances, etc.?: No Are you currently unemployed and looking for a job?: No Are you interested in more education?: No Please select the resources that you would like help with: None Currently or been in a relationship where the following occur: No concerns reported and I choose not to answer THRIVE Score: 0 AUDIT C Alcohol Use Questionnaire (AUDIT-C) 1. How often do you have a drink containing alcohol?: Never Total Score: 0 TOBIAS-7 AMB Questionnaire TOBIAS-7 Date TOBIAS - 7 assessed: 12/16/23 Source: Developed by Drs. Jason Michel, Porsche Aguilar, Missael Lindsay and colleagues, with an educational angela from [employer]. Review of Systems Const All systems reviewed & are unremarkable except as noted in HPI and below Neuro Denies confusion Psych Denies confusion Physical exam (Primary Care) Vital Signs: Last Vital Signs Temp 98.4 F 10/28/24 14:59 Pulse 86 10/28/24 14:59 Pulse Ox 93 10/28/24 14:59 Oxygen Delivery Method Room Air 10/28/24 14:59 BMI result Body Mass Index 24.3 Tobacco/Smoking Status: Tobacco use Status Tobacco use date assessed 07/27/24 07/27/24 14:26 Patient Tobacco Use Status Current someday Tobacco 07/27/24 14:26 Tobacco use type Cigar 07/27/24 14:26 e-Cigarette/Vaping Use Never Used 07/27/24 14:26 Thrive Assessment: Date of Thrive Assessment Date Thrive assessed 07/20/24 07/27/24 14:26 Currently or been in a relationship where the following occur: No concerns reported and I choose not to answer Const General: cooperative, healthy appearing, comfortable, no acute distress and well developed; No confusion Orientation/consciousness: patient oriented x3 and No confusion Limitations: no limitations HENMT Head: Yes normal to inspection Ears: hearing grossly normal bilaterally General nose exam: Normal external nose present Face and sinus: Yes normal facial exam Eyes General: appearance normal, both eyes and all related structures Neck Neck: Yes normal visual inspection and Yes full ROM Resp Effort & Inspection: normal respiratory effort and able to speak in complete sentences Skin General skin exam: no rashes or lesions noted Neuro General: patient oriented x3 and No confusion Extrem General: Yes normal to inspection Psych Appearance: grossly normal and well kempt Speech and movement: Clear speech present Affect: Sad affect present Thought content: Suicidality present, no homicidality and Depressive thoughts present Insight: Good insight present (Psych) Judgement: Fair judgement present (Psych) Coding Level of Care Code Est Pt Level 5 (36873) Diagnoses Suicidal ideations R45.851 Hospital discharge follow-up Z09 On prednisone therapy Z79.52 Chest pain R07.9 Assessment & Plan Assessment & Plan (1) Suicidal ideations: Code(s): R45.851 - Suicidal ideations Category: Medical Plan: Patient was instructed to go to the ED for SI with likely admission, his will drive him. I called [facility] [place] [place] ED with expect, spoke to SANCHEZ Metz in the ED. (2) Hospital discharge follow-up: Code(s): Z09 - Encounter for follow-up examination after completed treatment for conditions other than malignant neoplasm Category: Medical Plan: as above (3) On prednisone therapy: Code(s): Z79.52 - assistant terminal manager (current) use of systemic steroids Category: Medical Plan: as above, gave info to ED (4) Chest pain: Code(s): R07.9 - Chest pain, unspecified Category: Medical Plan: as above Medications: Refilled ezetimibe 10 mg PO BEDTIME 90 tabs 1RF
--- OUTSIDE RECORDS SUMMARY | 2024-10-28 18:09 | XMS_ITS | Clinical Summary ---
Author Organization [facility] Address [address] [place] [id number] Phone Care Team Providers Care Supervisor [employer] Name Role Phone Ezra Denney NP Primary Care Provider Allergies Active Allergy Reactions Criticality Noted Date Comments Penicillins Hives Medium 03/26/2017 Tolerated test dose and full dose of cefepime this admission (09/02/2018) and cefazolin (09/07/18), can use without restriction Medications metoprolol succinate (TOPROL-XL) 25 mg 24 hr tablet Take 1 tablet (25 mg total) by mouth daily. 08/12/2023 Active alendronate (FOSAMAX) 70 mg tablet Take 1 tablet (70 mg total) by mouth every 7 (seven) days. 05/29/2023 Active Eliquis 5 mg tablet Take 1 tablet (5 mg total) by mouth 2 (two) times a day. Active ascorbic acid (VITAMIN C) 500 mg chewable tablet Chew 1 tablet (500 mg total) daily. Active clopidogreL (PLAVIX) 75 mg tablet Take 1 tablet (75 mg total) by mouth at bedtime. 11/12/2022 Active divalproex (DEPAKOTE) [address] tablet Take 1 tablet (500 mg total) by mouth 2 times daily. 06/01/2024 Active dofetilide (TIKOSYN) 250 mcg capsule Take 1 capsule (250 mcg total) by mouth 2 times daily. 04/26/2024 Active Jardiance 10 mg tablet Take 1 tablet (10 mg total) by mouth 1 (one) time each day. Active ezetimibe (ZETIA) 10 mg tablet Take 1 tablet (10 mg total) by mouth 1 (one) time each day. 03/12/2011 Active FLUoxetine (PROzac) 40 mg capsule Take 1 capsule (40 mg total) by mouth daily. Active levothyroxine (SYNTHROID, LEVOTHROID) 50 mcg tablet Take 1 tablet (50 mcg total) by mouth 1 (one) time each day before breakfast. Active midodrine (PROAMATINE) 5 mg tablet Take 2 tablets (10 mg total) by mouth 3 (three) times a day if needed. Active modafiniL (PROVIGIL) 100 mg tablet Take 1 tablet (100 mg total) by mouth 1 (one) time each day. Max Daily Amount: 100 mg Active nitroglycerin (NITROSTAT) 0.[address] 1 tablet (0.4 mg total) under the tongue every 5 minutes as needed. 06/30/2024 Active pantoprazole (PROTONIX) 40 mg EC tablet Take 1 tablet (40 mg total) by mouth 1 (one) time each day. Active PARoxetine (PAXIL) 10 mg tablet Take 3 tablets (30 mg total) by mouth 1 (one) time each day. Active rosuvastatin (CRESTOR) 40 mg tablet Take 1 tablet (40 mg total) by mouth 1 (one) time each day. Active Entresto 24-26 mg per tablet Take 1 tablet by mouth 2 (two) times a day. Active thiamine 100 mg tablet Take 1 tablet (100 mg total) by mouth daily. 01/20/2023 Active vitamins A,C,E-zinc-galindo er 4,296 mcg-226 mg-90 mg capsule Take 1 capsule by mouth 2 times daily. Active cholecalciferol (Vitamin D3) 50 mcg (2,000 unit) capsule Take 1 capsule (2,000 Units total) by mouth 1 (one) time each day. 05/16/2021 Active acetaminophen (TYLENOL) 325 mg tablet Take 2 tablets (650 mg total) by mouth every 8 (eight) hours if needed. 01/20/2023 Active levothyroxine (SYNTHROID, LEVOTHROID) 200 mcg tablet Take 1 tablet (200 mcg total) by mouth 1 (one) time each day before breakfast. Take with 25 MCG for a daily total of 225 MCG daily Active Encounters Date Type Department Care Team Description 08/17/2024 12:45 PM EDT Office Visit Endocrinology - [address] [phone] Colin Martinez MD Hypothyroidism, unspecified type (Primary Dx) from Last 3 Months Social History Tobacco Use Types Packs/Day Years Used Date Smoking Tobacco: Never Assessed Sex and Gender Information Value Date Recorded Sex Assigned at Not on file Legal Sex Male 4:09 PM EST Gender Identity Not on file Sexual Orientation Not on file Last Filed Vital Signs Vital Sign Reading Time Taken Comments Blood Pressure 100/60 08/17/2024 12:57 PM EDT C Pulse 90 08/17/2024 12:57 PM EDT Temperature 36.8 C (98.2 F) 08/17/2024 12:57 PM EDT Respiratory Rate - - Oxygen Saturation 94% 08/17/2024 12:57 PM EDT Inhaled Oxygen Concentration - - Weight 80.8 kg (178 lb 3.2 oz) 08/17/2024 12:57 PM EDT Height 182.9 cm (6') 08/17/2024 12:57 PM EDT Body Mass Index 24.17 08/17/2024 12:57 PM EDT Plan of Treatment Upcoming Encounters Date Type Department Care Team (Late st Contact Info) Description 07/18/2025 11:00 AM EDT Office Visit Endocrinology [address] [phone] Colin Martinez MD [address] [place] [phone] Health Maintenance Due Date Last Done Comments DTaP,Tdap,and Td Vaccines (1 - Tdap) 1969 Hepatitis A Vaccines (1 of 2 - Risk 2-dose series) 1967 Zoster Vaccines (1 of 2) 1998 Cholesterol Screening (Lipid Panel) 2022 Depression Screening 2022 Falls Risk Assessment 2022 Hepatitis C Screening 2022 Medicare Annual Wellness Visit 2022 Social Influencers of Health Screening 2022 RSV Immunization Adult Patients (1 - 1-dose 75+ series) 2023 COVID-19 Vaccine ( season) 2024 03/04/2022, 03/09/2021, 08/02/2020, Additional history exists Influenza Vaccine (Season Ended) 2025 03/04/2022, 02/14/2020, 03/05/2019, Additional history exists Hypertension/CHF/CAD Annual BMP Blood [...] age to complete this topic Meningococcal B Vaccine Aged Out No l onger eligible based on patient's age to complete this topic RSV Immunization Patients Under 20 months Aged Out No longer eligible based on patient's age to complete this topic Varicella Vaccines Aged Out No longer eligible based on patient's age to complete this topic Procedures Procedure Name Priority Date/Time Associated Diagnosis Comments BASIC METABOLIC PANEL Routine 06/07/2024 7:01 AM EST Encounter for other general examination from Last 3 Months or Most Recently Relevant to Health Maintenance Results * (ABNORMAL) Basic metabolic panel (06/07/2024 7:01 AM EST) Sodium 142 133 - 145 mmol/L LAB CHEMISTRY METHOD 06/07/2024 11:08 AM EST [facility] Potassium 4.0 3.5 - 5.5 mmol/L LAB CHEMISTRY METHOD 06/07/2024 11:08 AM EST [facility] Chloride 107 96 - 110 mmol/L LAB CHEMISTRY METHOD 06/07/2024 11:08 AM EST [facility] CO2 28 21 - 32 mmol/L LAB CHEMISTRY METHOD 06/07/2024 11:08 AM [facility] Anion Gap 7 3 - 11 LAB CHEMISTRY METHOD 06/07/2024 11:08 AM [facility] Glucose 65(L) 70 - 100 mg/dL LAB CHEMISTRY METHOD 06/07/2024 11:08 AM [facility] BUN 15 5 - 25 mg/dL LAB CHEMISTRY METHOD 06/07/2024 11:08 AM [facility] Creatinine 0.81 0.70 - 1.30 mg/dL LAB CHEMISTRY METHOD 06/07/2024 11:08 AM [facility] eGFR 91 >=60 mL/min/1. 73m2 LAB CHEMISTRY METHOD 06/07/2024 11:08 AM [facility] Comment:Calculation based on the Chronic Kidney Disease Epidemiology Collaboration (CKD-EPI) equation refit without adjustment for race. BUN/Creatinine Ratio 18.5 LAB CHEMISTRY METHOD 06/07/2024 11:08 AM [facility] Calcium 9.1 8.5 - 10.5 mg/dL LAB CHEMISTRY METHOD 06/07/2024 11:08 AM [facility] Blood Venous blood specimen / Unknown Venipuncture / Unknown 06/07/2024 7:01 AM EST 06/07/2024 9:23 AM EST us Eugene Wilson MD LAB BLOOD ORDERABLES Final Res ult [facility] [address] [place] [address], from Last 3 Months or Most Recently Relevant to Health Maintenance Insurance MEDICARE [employer] Care Teams Supervisor [employer] Relationship Specialty Start Date End Date Ezra Denney NP [address], [place] PCP - General 06/24/23
== END 2024-10-28 16:01 | disposition home or self-care (01) ==
LOC: HO.HMCC 14:57
PROVIDERS: PCP Nurse Practitioner Family; Visit Provider Physician Assistant
DX: R45.851 Suicidal ideations (principal); Z09 Encounter for follow-up examination after completed treatment for conditions other than malignant neoplasm; Z79.52 Long term (current) use of systemic steroids; R07.9 Chest pain, unspecified

== ENCOUNTER → 2024-10-28 14:57 | Outpatient (BNVA) | payer MEDICARE, SELFPAY | PROVIDERS: Visit Provider Physician Assistant | DX: Z13.89 Encounter for screening for other disorder (principal) ==

== ENCOUNTER 2024-10-28 15:50 | Inpatient (IN) | payer MEDICARE, SELFPAY ==
--- NOTE | 2024-10-28 | ECG_ITS ---
Test Reason : MED CLEAR Blood Pressure : */* mmHG Vent. Rate : 65 BPM Atrial Rate : 65 BPM P-R Int : 148 ms QRS Dur : 160 ms QT Int : 488 ms P-R-T Axes : 71 -56 123 degrees QTcB Int : 507 ms Normal sinus rhythm Right bundle branch block Left anterior fascicular block Bifascicular block Left ventricular hypertrophy with repolarization abnormality ( R in aVL ) Inferior infarct (cited on or before 31-Jul-2022) Anterolateral infarct (cited on or before 31-Jul-2022) Abnormal ECG When compared with ECG of 31-Jul-2022 11:25, Vent. rate has increased by 24 bpm Referred By: Bubba Ellis Electronically Signed By: JULIA HARGROVE
[2024-10-28 15:53] VITALS: BP 101/61; PULSE 72; RESP 18; TEMP 36.6; O2SAT 95; BMI 25.0
--- NOTE | 2024-10-28 15:55 | ED.PSYCH ---
HPI - Psych General Chief Complaint: Psychiatric Symptoms Stated Complaint: psych eval Time Seen by Provider: 10/28/24 16:12 Source: patient and family Mode of arrival: ambulatory Limitations: no limitations History of Present Illness ED Provider: HPI Narrative: Patient is 74 years old with a history of major depression with suicidal ideation, hypotension, paroxysmal AFib, comes here for having increased depression patient has been to [facility] almost 6 times in last 1 month with chest pain and depression been cleared this time he comes here as feel depressed and would like to kill himself with using a firearm at home patient does have firearms at home patient has just feel that he does not have any will to live anymore Related Data Home Medications ?Medication ?Instructions ?Recorded ?Confirmed acetaminophen 325 mg capsule 325 mg PO QID PRN Pain 03/04/23 10/28/24 clopidogrel 75 mg tablet 75 mg PO BEDTIME 03/04/23 10/28/24 thiamine HCl (vitamin B1) 100 mg 100 mg PO DAILY 03/04/23 10/28/24 tablet alendronate 70 mg tablet 70 mg PO QWEEK 05/20/23 10/28/24 ascorbate calcium (vitamin C) 500 500 mg PO DAILY 12/16/23 10/28/24 mg tablet divalproex 500 mg tablet,delayed 500 mg PO BID 12/16/23 10/28/24 release modafinil 100 mg tablet 100 mg PO DAILY 12/16/23 10/28/24 vitamins A,C,F-fhtw-agqiah 4,296 1 cap PO BID 12/16/23 10/28/24 mcg-226 mg-90 mg capsule (PreserVision AREDS) melatonin 3 mg capsule 6 mg PO BEDTIME PRN 07/27/24 07/27/24 metoprolol succinate 50 mg 12.5 mg PO BEDTIME 07/27/24 10/28/24 tablet,extended release 24 hr (Toprol XL) midodrine 5 mg tablet 10 mg PO TID PRN Hypotension 07/27/24 10/28/24 cholecalciferol (vitamin D3) 25 50 mcg PO DAILY 10/28/24 10/28/24 mcg (1,000 unit) tablet dapsone 100 mg tablet 100 mg PO DAILY 10/28/24 10/28/24 dofetilide 125 mcg capsule 125 mcg PO DAILY 10/28/24 10/28/24 isosorbide mononitrate 30 mg 30 mg PO DAILY 10/28/24 10/28/24 tablet,extended release 24 hr prednisone 20 mg tablet 60 mg PO DAILY 10/28/24 10/28/24 ranolazine 500 mg tablet,extended 500 mg PO BID 10/28/24 10/28/24 release,12 hr Previous Rx's ?Medication ?Instructions ?Recorded nitroglycerin 0.4 mg sublingual 0.4 mg sublingual Q5M PRN chest 08/01/21 tablet (Nitrostat) pain 30 days #90 tabs calcium 500 mg (as 1 tab PO BID #180 tabs 08/26/23 carbonate)-vitamin D3 15 mcg (600 unit) tablet mecobalamin (vitamin B12) 1,000 1,000 mcg PO DAILY 90 days #90 tabs 04/22/24 mcg chewable tablet paroxetine HCl 20 mg tablet 30 mg (1.5 x 20 mg) PO QAM 90 days 07/11/24 #135 tabs levothyroxine 200 mcg tablet 200 mcg PO DAILY #90 tabs 07/28/24 pantoprazole 40 mg tablet,delayed 40 mg PO DAILY #90 tabs 08/25/24 release rosuvastatin 40 mg tablet 40 mg PO DAILY #90 tabs 08/25/24 apixaban 5 mg tablet (Eliquis) 5 mg PO BID #180 tabs 09/14/24 levothyroxine 50 mcg tablet 50 mcg PO DAILY 90 days #90 tabs 09/22/24 empagliflozin 10 mg tablet 10 mg PO DAILY #90 tabs 10/01/24 (Jardiance) ezetimibe 10 mg tablet 10 mg PO BEDTIME #90 tabs 10/28/24 Allergies Allergy/AdvReac Type Severity Reaction Status Date / Time Penicillins (PENICILLINS) Allergy Intermediate ITCHY RASH Verified 10/28/24 15:57 Review of Systems Review of Systems: Yes all other systems are reviewed and are negative [facility] Past Medical History Medical History STEMI (ST elevation myocardial infarction) Fall Atrial fibrillation with RVR Respiratory failure Limbic encephalitis Hypotension History of blood transfusion Osteopenia Hyperparathyroidism Severe obstructive sleep apnea Hypothyroidism Familial hypocalciuric hypercalcemia Vitamin D deficiency HTN (hypertension) Carpal tunnel syndrome of left wrist Ischemic cardiomyopathy Left carpal tunnel syndrome PTSD (post-traumatic stress disorder) FÉLIX (obstructive sleep apnea) Pulmonary nodule Paroxysmal atrial fibrillation Depression CAD (coronary artery disease) Surgical History Hx of cataract Hx of total knee replacement History of AAA (abdominal aortic aneurysm) repair AICD (automatic cardioverter/defibrillator) present Hx of colonoscopy Hx of discectomy Hx of appendectomy Hx of tonsillectomy S/P CABG x 6 Family History Family History Father CAD (coronary artery disease) Substance use disorder Mother CVA (cerebral vascular accident) Paternal Uncle Substance use disorder Other Mental health disorder Social History Social History Household Members: Significant Other Housing: House Are you a primary care specialist to a significant other at home: No Do you presently have visiting nurse or other home services: No Alcohol intake: never Comment: aware of trip hazard Patient Tobacco Use Status: Current everyday Tobacco user Tobacco use type: Cigar e-Cigarette/Vaping Use: Never Used Substance Use Type: Marijuana Advance Directives: Yes Advance Directives on File: Yes Advance Directives Date on File: 07/27/21 Do you have a plan to hurt others: No Plan service: No Current occupational status: retired Cognitive needs: No Hearing needs: No Vision needs: Yes Physical Exam Vital Signs: Vital Signs: Last Vital Signs Temp 98.2 F 10/28/24 19:27 Pulse 65 10/28/24 19:27 Resp 17 10/28/24 19:27 BP 103/61 10/28/24 19:27 Pulse Ox 95 10/28/24 19:27 O2 Del Method Room Air 10/28/24 19:27 BMI result Body Mass Index 25.0 Appearance: Alert. Oriented X3. No acute distress. Eyes: PERRLA, No Nystagmus ENT: Pharynx normal. Oral Mucosa moist Neck: Normal inspection. Neck supple. CVS: Normal heart rate and rhythm. Pulses normal. Respiratory: No respiratory distress. Equal air entry bilateral, no wheezing/rales/rhonchi Abdomen: Soft and nontender. Bowel sounds are present, no mass palpable, no CVA tenderness Skin: Skin warm and dry. Normal skin color. Normal skin turgor. Extremities: No lower extremity edema. No calf tenderness psych: Depressed with suicidal ideation and plan to shoot himself using his gun Neuro: Oriented X 3. No motor deficit. No sensory deficit.No cerebellar signs , cranial nerves II-XII intact Course Course Course Narrative: This is an RME: Additional HPI, ROS, PE not included below will be deferred to primary provider. RME assessment and note performed by: Lashay Nieves PA-C This is a [id number]-male, with a hx of he has a history of CAD status post CABG x3 with prior PCIs including the RCA PCI and SVG to OM PCI both of which are occluded and chronic total occlusions from the proximal RCA and left coronary system, ischemic cardiomyopathy, LVEF 20-30% status post ICD/pacer placement, paroxysmal AFib on apixaban and dofetilide, AAA, hypertension, HLD, prior alcohol dependence, prior encephalitis and COVID infection, progressive frailty and minimal cognitive decline, hypothyroidism, mood disorder, seizure disorder, orthostatic hypotension started on midodrine in 10/09/2024 who was recently admitted to [facility] for worsening chronic stable angina, who presents to the ER with complaints of suicidal ideation. He does have a plan to end his life with a firearm - reports he does have access to firearms at home. No HI. No AH/VH. Information gathered from recent UC visit from today for further details in regards to recent [facility] admissions: Cardiology medically managed him for that admission and he presented again on October 12 with a similar complaint. In the ED, the troponins were not significantly elevated. Cardiology evaluated him and recommended possible repeat coronary and bypass angiography with consideration of CUSTOMER SERVICE OPERATOR PCI if suitable anatomy was found. During the hospitalization he was bradycardic and hypotensive.? Cardiology recommended adding ranolazine to his regimen and he was discharged on October 14.He returned to [facility] on October 18 with recurrent chest pain, he did have some sublingual nitro which did not relieve his pain so he was admitted for further workup.? On October 20 [facility] Cardiology did a repeat coronary and bypass angiogram catheterization and they concluded he had unstable angina, multivessel CAD, a patent HARTLEY to mid LAD, occluded saphenous graft to marginal, diagonal and rPDA and normal LV filling pressures. Due to risk factors it was determined he should optimize antianginal therapy with no other options.? However, Cardiology was going to set him up to talk with somebody to see if he would be a candidate for enrollment in the Cosira trial which is a coronary sinus stonecutter apprentice hand for refractory angina.? The patient was discharged on 10/21.? Before their discharge, the patient's mentioned that the patient was suicidal will not and he was placed on a suicide watch for 5 days on 10/16 but he left due to the chest pain. and she is looking for a psychiatric appointment. [facility] gave her the information.? The hospitalist's notes that the patient did not express any suicidal ideations during their evaluation at the hospital. Since his discharge, the patient reports continued chronic angina, started taking the ranolazine with no improvement so far, it's been 10 days.?He admits to some sweating and nausea. Notabley, his is most concerned with the fact that he threatens to get his revolver and kill himself on a daily basis because he feels like his health issues are such a burden. He has an appt with [facility] on 11/18. He takes paroxotine 30mg daily but he was on a higher dose. He has panic attacks and was given lorazepam which worked well but was never given it upon discharge. He does not have a therapist or psychiatric doctor or prescriber. Medical Decision Making Medical Decision Making [facility] Narrative: Patient has significant depression with suicidal ideation with access to gun, wanted to shoot himself seen by care team will be admitted to the psych floor for major depression Admission/Observation Consideration of admission/observation: Escalation of care including admission/observation considered Lab Data [facility] Lab Attestation statement: I reviewed the patient's lab results. 10/28/24 16:27 10/28/24 16:27 Labs: Lab Results 10/28/24 Range/Units 16:27 WBC 9.0 (4.8-10.8) X10*3/uL RBC 4.22 L (4.60-5.80) X10*6/uL Hgb 13.6 L (14.0-18.0) g/dl Hct 40.2 L (42.0-52.0) % MCV 95.3 (80.0-98.0) fL MCH 32.2 (27.0-33.0) pg MCHC 33.8 (31.0-36.0) g/dl RDW 17.8 H (11.0-16.0) % Plt Count 150 L (160-400) X10*3/uL MPV 10.0 (9.4-12.4) fL Immature Gran % (Auto) 1.9 H (0.0-0.4) % Neut % (Auto) 89.3 H (45-73) % Lymph % (Auto) 5.0 L (20-40) % [place] % (Auto) 3.6 (2-11) % Eos % (Auto) 0.0 (0-4) % Baso % (Auto) 0.2 (0-2) % Lymph # (Auto) 0.5 L (1.2-4.9) X10*3/uL [place] # (Auto) 0.3 (0.1-1.2) X10*3/uL Eos # (Auto) 0.0 (0.0-0.4) X10*3/uL Baso # (Auto) 0.0 (0.0-0.2) X10*3/uL Abs Immat Gran (auto) 0.17 H (0.00-0.03) X10*3/uL Absolute Neuts (auto) 8.0 (2.0-8.3) x10*3/uL Absolute Nucleated RBC 0.000 (0.0-0.012) X10*3/uL Nucleated RBC % (auto) 0.0 (0.0-0.2) /100WBC Sodium 139 (135-145) mmol/L Potassium 4.7 (3.3-5.1) mmol/L Chloride 103 (96-108) mmol/L Carbon Dioxide 28 (22-29) mmol/L Anion Gap 13 (12-20) BUN 26 H (9-16) mg/dL Creatinine 1.25 (0.5-1.4) mg/dL Estim Creat Clear Calc 53.5 Estimated GFR 56 Random Glucose 102 (60-115) mg/dL Calcium 9.1 (8.4-10.2) mg/dL Total Bilirubin 1.3 H (0.0-1.0) mg/dL AST 23 (5-37) U/L ALT 22 (0-40) U/L Alkaline Phosphatase 71 (39-117) U/L Total Protein 5.7 L (6.5-8.0) g/dL Albumin 4.2 (3.5-5.0) g/dL Urine Color Yellow Urine Appearance Clear Urine pH 7.5 (5.0-9.0) Ur Specific [place] 1.020 (1.005-1.025) Urine Protein Negative (Neg-Trace) mg/dL Urine Glucose (UA) >=1000 H (Negative) mg/dL Urine Ketones Negative (Negative) mg/dL Urine Blood Negative (Negative) Urine Nitrite Negative (Negative) Ur Leukocyte Esterase Negative (Negative) Urine RBC 0-2 (0-2) /HPF Urine WBC 0-5 (0-5) /HPF Ur Squamous Epith Cells 0-2 (0-2) /HPF Urine Bacteria None Seen (None Seen) Hyaline Casts 0-2 (0-2) /LPF Salicylates < 5.0 L (15-30) mg/dL Urine Opiates Screen Not Detected (Not Detect) Ur Buprenorphine Scrn Not Detected (Not Detect) ng/mL Ur Oxycodone Screen Not Detected (Not Detect) ng/mL Urine Methadone Screen Not Detected (Not Detect) ng/mL Urine Fentanyl Screen Not Detected (Not Detect) Acetaminophen < 3 (<30) mcg/mL Ur Barbiturates Screen Not Detected (Not Detect) Ur Phencyclidine Scrn Not Detected (Not Detect) Ur Amphetamines Screen Not Detected (Not Detect) U Benzodiazepines Scrn Not Detected (Not Detect) Urine Cocaine Screen Not Detected (Not Detect) U Marijuana (THC) Screen Not Detected (Not Detect) Ethyl Alcohol < 10 mg/dL Independent Interpretation I performed an independent interpretation of an: EKG Interpretation: Normal sinus rhythm heart rate 65 beats per minute right bundle-branch block left anterior fascicular block LVH no acute STT wave changes no acute ischemia Discharge Plan Discharge Clinical Impression: Depression with suicidal ideation Patient Disposition: Admitted As Inpatient Interventions: [place]-Suicide Risk Severity Scale Last Done: 10/28/24 16:16 Print Language: Romanian
[2024-10-28 16:33] LABS: MANUAL DIFF FLAG NO
[2024-10-28 16:35] LABS: Appearance Urine Clear; Glucose Urine UA >=1000 mg/dL (Negative); Hematocrit 40.2 % (42.0-52.0); Hemoglobin 13.6 g/dl (14.0-18.0); Imm Gran Abs Auto 0.17 X10*3/uL (0.00-0.03); Imm Gran Pct Auto 1.9 % (0.0-0.4); Lymphocytes Absolute Auto 0.5 X10*3/uL (1.2-4.9); Mean Corpuscular HGB Conc 33.8 g/dl (31.0-36.0); Mean Corpuscular Hemoglobin 32.2 pg (27.0-33.0); Mean Corpuscular Volume 95.3 fL (80.0-98.0); NRBC Abs Auto 0.000 X10*3/uL (0.0-0.012); NRBC Pct Auto 0.0 /100WBC (0.0-0.2); PH 7.5 (5.0-9.0); Platelet Count 150 X10*3/uL (160-400); Red Blood Count 4.22 X10*6/uL (4.60-5.80); Specific Gravity - Urine 1.020 (1.005-1.025); UMIC TRIGGER UA YES; White Blood Count 9.0 X10*3/uL (4.8-10.8)
[2024-10-28 16:44] LABS: Cannabinoid Screen Urine Not Detected (Not Detect)
[2024-10-28 16:51] LABS: Alanine Aminotransferase 22 U/L (0-40); Albumin Level 4.2 g/dL (3.5-5.0); Alkaline Phosphatase 71 U/L (39-117); Anion Gap 13 (12-20); Aspartate Amino Transferase 23 U/L (5-37); Blood Urea Nitrogen 26 mg/dL (9-16); Calcium 9.1 mg/dL (8.4-10.2); Carbon Dioxide 28 mmol/L (22-29); Chloride 103 mmol/L (96-108); Creatinine Clr Calc Pharmacy 53.5; Estimated Glomerular Filt Rate 56; Potassium 4.7 mmol/L (3.3-5.1); Sodium 139 mmol/L (135-145); Total Protein 5.7 g/dL (6.5-8.0)
[2024-10-28 16:52] LABS: Acetaminophen LAB < 3 mcg/mL (<30); Salicylate < 5.0 mg/dL (15-30)
[2024-10-28 19:27] VITALS: BP 103/61; PULSE 65; RESP 17; TEMP 36.8; O2SAT 95
[2024-10-28 21:58] VITALS: BP 103/61; PULSE 65
[2024-10-28] MEDS: Metoprolol Succinate ER 12.5 MG HALFTAB.ER.24H PO (21:58)
[2024-10-28] MEDS: Calcium + Vitamin D 250 MG TABLET PO (21:58)
[2024-10-28 22:57] VITALS: BMI 24.4
[2024-10-28 22:58] VITALS: BP 96/58; PULSE 70; RESP 16; TEMP 36.8; O2SAT 95
--- NOTE | 2024-10-29 00:26 | PC.NURSE ---
Admission Note Renard Mckeon, a 74-year-old man, was presented to [facility] ED from the PCP?s office for endorsing suicidal ideation with plan and intent to shoot himself and he has access to firearms. Renard lives with his . The patient has a medical and psychiatric history of STEMI (ST elevation myocardial infarction), Paroxysmal atrial fibrillation, Hypothyroidism, HTN (hypertension), CAD (coronary artery disease), Ischemic cardiomyopathy,? PTSD (post-traumatic stress disorder), and Depression. Renard arrived at our unit in a wheelchair at 2215 on 10/28/24, on CV, with an admitting diagnosis of? Major Depressive Disorder. He is full-code. The patient is alert and oriented, times four. Behaviour pleasant but appears anxious. The patient reported he has no skin issues except for scattered bruises on bilateral arms, and has abrasion on left middle arm which bleeds easily due to prescribed Eliquis, covered with dry dressing secured with taps.? Med reconciliation was completed in ED /admitting provider?s approved/MAR is active. The patient takes his meds whole with water. He ambulates independently, continent with bowel and bladder, and independent with ADL care.? Labs are unremarkable. UA negative. Utox negative. No depakote level and TSH are done in ED. Renard signed her treatment plan, safety tool, belonging sheet, and release paper. Luis searched. Renard is on a 5-minute safety check.
[2024-10-29 05:34] LABS: Glucose, Whole Blood 78 mg/dL (60-115)
[2024-10-29 06:31] VITALS: BP 91/53
[2024-10-29 06:32] VITALS: BP 91/53
[2024-10-29 08:00] VITALS: BP 108/58; PULSE 78; RESP 16; TEMP 36.9; O2SAT 96
[2024-10-29] MEDS: Calcium + Vitamin D 250 MG TABLET PO ×2 (08:58→21:04)
[2024-10-29 09:05] LABS: Hemoglobin A1C 79.0732 umol/L; Total Hemoglobin (HGBA1C) 3349.8963 umol/L
[2024-10-29 09:14] LABS: Alanine Aminotransferase 36 U/L (0-40); Albumin Level 3.9 g/dL (3.5-5.0); Alkaline Phosphatase 75 U/L (39-117); Aspartate Amino Transferase 23 U/L (5-37); Blood Urea Nitrogen 22 mg/dL (9-16); Calcium 8.9 mg/dL (8.4-10.2); Cholesterol 161 mg/dL (<200); Creatinine Clr Calc Pharmacy 66.9; Estimated Glomerular Filt Rate > 60; HDL Cholesterol 78 mg/dL (>40); Total Protein 5.5 g/dL (6.5-8.0); Triglycerides 143 mg/dL (<150)
[2024-10-29 09:30] LABS: Anion Gap 15 (12-20); Carbon Dioxide 24 mmol/L (22-29); Chloride 105 mmol/L (96-108); Free T4 (Free Thyroxine) 1.28 ng/dL (0.71-1.85); Potassium 3.7 mmol/L (3.3-5.1); Sodium 140 mmol/L (135-145); Thyroid Stimulating Hormone 1.14 uIU/mL (0.32-4.0)
[2024-10-29 09:43] LABS: Folate 8.0 ng/mL (> or = 4.0); Vitamin B12 367 pg/mL (200-900)
--- NOTE | 2024-10-29 10:03 | HO.PM.IMCN ---
History of Present Illness Data of Consult Service Date: 10/29/24 Primary Care Provider: Ezra Denney, [facility]- HPI Reason for consult: Medical management Patient is a 74-year-old male with a past medical history of hypertension, hyperlipidemia, coronary artery disease, status post CABG about 20 years ago, systolic and diastolic heart failure with reduced ejection fraction of 20-30 per last echo, AICD placed 03/12, paroxysmal AFib, HTN, HLD, History of ID, FÉLIX Chronic stable angina, History of anginal Chest pain, hypotension, AAA with percutaneous repair 2018, hypothyroidism, history of autoimmune encephalitis, seizure disorder, depression, alcohol dependence, and cognitive impairment. Patient is admitted to [facility] for depression and increased suicidal ideation. Patient has an extensive cardiac history and is followed by [facility]. Patient had a recent ECHO at [facility] 10/08/2024 which demonstrated an LVEF of 20-30%. Patient at [facility] 10/03/24 for chest pain. workup unremarkable. His pacemaker was interrogated at that time with no episodes recorded. ACS ruled out. Patient again at [facility] 10/05/2024 for syncopal episode, medications reduced by cardiology. [facility] on 10/07/2024 with CP, admitted, ACS ruled out, medication adjustments. On 10/13/2024, presented to ED with Chest pain, ACS ruled out. Ranozaline added to his regime. [facility] again 10/18/2024, underwent cardiac Cath which showed continue patency of HARTLEY-LAD and occluded [place] vessels and bypass grafts. No areas for PCI. He began expressing SI and was evaluated for admission here for further care. Patient also has a diagnosis of autoimmune encephalitis, he is followed by Dr. Webb and neurologist in [place]. For this he is taking Depakote, dapsone and prednisone taper. Patient has been on tapering doses of prednisone and is due to start 30 mg tomorrow. On exam he is alert and confused. Sitting up watching TV appropriately, denies any chest pain, shortness of breath or any other concerning symptoms. is expressing that she is unable to care for him safely at home. Review of Systems Review of Systems: Denies any shortness of breath, chest pain, dizziness, lightheadedness, abdominal pain or discomfort, nausea vomiting or diarrhea PMFSH Medical History STEMI (ST elevation myocardial infarction) Fall Atrial fibrillation with RVR Respiratory failure Limbic encephalitis Hypotension History of blood transfusion Osteopenia Hyperparathyroidism Severe obstructive sleep apnea Hypothyroidism Familial hypocalciuric hypercalcemia Vitamin D deficiency HTN (hypertension) Carpal tunnel syndrome of left wrist Ischemic cardiomyopathy Left carpal tunnel syndrome PTSD (post-traumatic stress disorder) FÉLIX (obstructive sleep apnea) Pulmonary nodule Paroxysmal atrial fibrillation Depression CAD (coronary artery disease) Family History Father CAD (coronary artery disease) Substance use disorder Mother CVA (cerebral vascular accident) Paternal Uncle Substance use disorder Other Mental health disorder Surgical History Hx of cataract Hx of total knee replacement History of AAA (abdominal aortic aneurysm) repair AICD (automatic cardioverter/defibrillator) present Hx of colonoscopy Hx of discectomy Hx of appendectomy Hx of tonsillectomy S/P CABG x 6 Social History Household Members: Spouse Housing: House Are you a primary lead caregiver to a significant other at home: No Do you presently have visiting nurse or other home services: No Alcohol intake: never Comment: aware of trip hazard Patient Tobacco Use Status: Current someday Tobacco user Tobacco use type: Cigar Smoked in Last 30 Days: Yes e-Cigarette/Vaping Use: Never Used Patient Interested in Nicotine Replacement: No Patient Given Instructions on How to Stop Smoking: No Second Hand Smoke Exposure: No Substance Use Type: Marijuana Currently Displaying Signs/Symptoms of Drug Intoxication Withdrawal: No Have you been hit, kicked, punched, or otherwise hurt by someone within the past year? If so, by whom?: No Advance Directives: Yes Advance Directives on File: Yes Advance Directives Date on File: 07/27/21 Do you have thoughts of harming others: None Do you have a plan to hurt others: No Plan Recently lost weight without trying: No service: No Current occupational status: retired Cognitive needs: No Hearing needs: No Vision needs: Yes Meds Allergies Allergy/AdvReac Type Severity Reaction Status Date / Time Penicillins (PENICILLINS) Allergy Intermediate ITCHY RASH Verified 10/28/24 15:57 Active Medications: Current Medications Acetaminophen (Acetaminophen 325 Mg Tablet) 650 mg PO Q6H PRN PRN Reason: Headache/Pain, Scale 1-10 Al Hydroxide/Mg Hydroxide (Magnesium Hydrox/Alum Hydrox 30 Ml Oral.Susp) 30 ml PO Q6H PRN PRN Reason: Heartburn/Nausea Apixaban (Apixaban 5 Mg Tablet) 5 mg PO BID [facility] Last Admin: 10/29/24 09:01 Dose: 5 mg Ascorbic Acid (Ascorbic Acid 500 Mg Tablet) 500 mg PO DAILY [facility] Last Admin: 10/29/24 09:02 Dose: 500 mg Atorvastatin Calcium (Atorvastatin Calcium 80 Mg Tablet) 80 mg PO DAILY [facility] Last Admin: 10/29/24 09:02 Dose: 80 mg Calcium Carbonate/Cholecalciferol (Calcium + Vitamin D 250 Mg Tablet) 250 mg PO BID [facility] Last Admin: 10/29/24 08:58 Dose: 250 mg Clopidogrel Bisulfate (Clopidogrel Bisulfate 75 Mg Tablet) 75 mg PO BEDTIME [facility] Last Admin: 10/28/24 22:02 Dose: 75 mg Dapsone (Dapsone 25 Mg Tablet) 100 mg PO DAILY [facility] Last Admin: 10/29/24 09:00 Dose: 100 mg Divalproex Sodium (Divalproex Sodium 500 Mg Tablet.Dr) 500 mg PO BID [facility] Last Admin: 10/29/24 09:02 Dose: 500 mg Dofetilide (Dofetilide 125 Mcg Capsule) 125 mcg PO DAILY [facility] Ezetimibe (Ezetimibe 10 Mg Tablet) 10 mg PO BEDTIME [facility] Last Admin: 10/28/24 22:02 Dose: 10 mg Empagliflozin (Empagliflozin 10 Mg Tablet) 10 mg PO DAILY [facility] Last Admin: 10/29/24 09:02 Dose: 10 mg Isosorbide Mononitrate (Isosorbide Mononitrate 30 Mg Tab.Er.24h) 30 mg PO DAILY [facility]; Protocol Last Admin: 10/29/24 09:01 Dose: Not Given Levothyroxine Sodium (Levothyroxine Sodium 50 Mcg Tablet) 50 mcg PO DAILY [facility] Last Admin: 10/29/24 05:20 Dose: 50 mcg Levothyroxine Sodium (Levothyroxine Sodium 200 Mcg Tablet) 200 mcg PO DAILY [facility] Last Admin: 10/29/24 05:20 Dose: 200 mcg Lorazepam (Lorazepam 0.5 Mg Tablet) 0.5 mg PO Q4H PRN PRN Reason: Anxiety Last Admin: 10/28/24 23:21 Dose: 0.5 mg Magnesium Hydroxide (Milk Of Magnesia 30 Ml Oral.Susp) 30 ml PO DAILY PRN PRN Reason: Constipation Metoprolol Succinate (Metoprolol Succinate Er 12.5 Mg Halftab.Er.24h) 12.5 mg PO BEDTIME [facility]; Protocol Last Admin: 10/28/24 21:58 Dose: 12.5 mg Midodrine (Midodrine Hcl 10 Mg Tablet) 10 mg PO TID PRN PRN Reason: Hypotension Last Admin: 10/29/24 06:32 Dose: 10 mg Modafinil (Modafinil 100 Mg Tablet) 100 mg PO DAILY [facility] Last Admin: 10/29/24 09:02 Dose: 100 mg Pantoprazole Sodium (Pantoprazole Sodium 20 Mg Tablet.Dr) 40 mg PO DAILY [facility] Last Admin: 10/29/24 08:58 Dose: 40 mg Paroxetine HCl (Paroxetine Hcl 30 Mg Tablet) 30 mg PO DAILY [facility] Last Admin: 10/29/24 09:01 Dose: 30 mg Prednisone (Prednisone 20 Mg Tablet) 60 mg PO DAILY [facility] Last Admin: 10/29/24 09:02 Dose: 60 mg Ranolazine (Ranolazine 500 Mg Tab.Er.12h) 500 mg PO BID [facility] Last Admin: 10/29/24 09:02 Dose: 500 mg Thiamine HCl (Thiamine Hcl 100 Mg Tablet) 100 mg PO DAILY [facility] Last Admin: 10/29/24 09:02 Dose: 100 mg Vitamin D (Cholecalciferol (Vitamin D3) 25 Mcg Tablet) 50 mcg PO DAILY [facility] Last Admin: 10/29/24 08:59 Dose: 50 mcg Home Medications ?Medication ?Instructions ?Recorded ?Confirmed ?Last Taken ?Type acetaminophen 325 mg capsule 325 mg PO QID PRN Pain 03/04/23 10/28/24 Unknown History clopidogrel 75 mg tablet 75 mg PO BEDTIME 03/04/23 10/28/24 Unknown History thiamine HCl (vitamin B1) 100 mg 100 mg PO DAILY 03/04/23 10/28/24 Unknown History tablet alendronate 70 mg tablet 70 mg PO QWEEK 05/20/23 10/28/24 Unknown History ascorbate calcium (vitamin C) 500 500 mg PO DAILY 12/16/23 10/28/24 Unknown History mg tablet divalproex 500 mg tablet,delayed 500 mg PO BID 12/16/23 10/28/24 Unknown History release modafinil 100 mg tablet 100 mg PO DAILY 12/16/23 10/28/24 Unknown History vitamins A,C,T-gioo-jghiyw 4,296 1 cap PO BID 12/16/23 10/28/24 Unknown History mcg-226 mg-90 mg capsule (PreserVision AREDS) melatonin 3 mg capsule 6 mg PO BEDTIME PRN Insomnia 07/27/24 10/29/24 Unknown History metoprolol succinate 50 mg 12.5 mg PO BEDTIME 07/27/24 10/28/24 Unknown History tablet,extended release 24 hr (Toprol XL) midodrine 5 mg tablet 10 mg PO TID PRN Hypotension 07/27/24 10/28/24 Unknown History cholecalciferol (vitamin D3) 25 50 mcg PO DAILY 10/28/24 10/28/24 Unknown History mcg (1,000 unit) tablet dapsone 100 mg tablet 100 mg PO DAILY 10/28/24 10/28/24 Unknown History dofetilide 125 mcg capsule 250 mcg PO DAILY 10/28/24 10/29/24 Unknown History isosorbide mononitrate 30 mg 30 mg PO DAILY 10/28/24 10/28/24 Unknown History tablet,extended release 24 hr prednisone 20 mg tablet See Taper PO DAILY 10/28/24 10/29/24 Unknown History ranolazine 500 mg tablet,extended 500 mg PO BID 10/28/24 10/28/24 Unknown History release,12 hr levothyroxine 200 mcg tablet 200 mcg PO DAILY@59910/29/24 10/29/24 Unknown History levothyroxine 50 mcg tablet 50 mcg PO MOWEFR@59910/29/24 10/29/24 Unknown History Physical Exam Vital Signs and Narrative: Vital Signs: Last Vital Signs Temp 98.4 F 10/29/24 08:00 Pulse 78 10/29/24 08:00 Resp 16 10/29/24 08:00 BP 108/58 L 10/29/24 08:00 Pulse Ox 96 10/29/24 08:00 O2 Del Method Room Air 10/29/24 08:00 BMI result Body Mass Index 24.4 Alert and confused X3, poor historian, well groomed. Neuro: CN II-X11 intact, no deficits, visual acuity intact EYES: PERRLA, EOM intact ENT: Hearing intact, lips moist Cardiac: S1 S2 RRR, No ectopy Pulmonary: lungs clear to auscultation, No increased WOB. Abdominal: BS active in all 4 quadrants, no guarding or tenderness MSK: Strength 5/5 upper and lower extremities : Deferred Extremities: No edema in lower extremities Psych: mood stable, Quiet and cooperative. Watching TV Skin: Warm and dry, Intact Results Labs 10/28/24 16:27 10/29/24 08:36 Labs: Laboratory Results - last 24 hr 10/28/24 10/29/24 10/29/24 16:27 05:24 08:36 MCV 95.3 MCH 32.2 MCHC 33.8 RDW 17.8 H Plt Count 150 L MPV 10.0 Immature Gran % (Auto) 1.9 H Neut % (Auto) 89.3 H Lymph % (Auto) 5.0 L Cuming % (Auto) 3.6 Eos % (Auto) 0.0 Baso % (Auto) 0.2 Lymph # (Auto) 0.5 L Cuming # (Auto) 0.3 Eos # (Auto) 0.0 Baso # (Auto) 0.0 Abs Immat Gran (auto) 0.17 H Absolute Neuts (auto) 8.0 Absolute Nucleated RBC 0.000 Nucleated RBC % (auto) 0.0 Anion Gap 13 15 Estim Creat Clear Calc 53.5 66.9 Estimated GFR 56 > 60 POC Glucose 78 Random Glucose 102 139 H Estimat Average Glucose 77 Hemoglobin A1c % 4.3 Calcium 9.1 8.9 Total Bilirubin 1.3 H 1.3 H AST 23 23 ALT 22 36 Alkaline Phosphatase 71 75 Total Protein 5.7 L 5.5 L Albumin 4.2 3.9 Triglycerides 143 Cholesterol 161 LDL Cholesterol, Calc 55 HDL Cholesterol 78 Vitamin B12 367 Folate 8.0 TSH 1.14 Free T4 1.28 Urine Color Yellow Urine Appearance Clear Urine pH 7.5 Ur Specific Citra 1.020 Urine Protein Negative Urine Glucose (UA) >=1000 H Urine Ketones Negative Urine Blood Negative Urine Nitrite Negative Ur Leukocyte Esterase Negative Urine RBC 0-2 Urine WBC 0-5 Ur Squamous Epith Cells 0-2 Urine Bacteria None Seen Hyaline Casts 0-2 Salicylates < 5.0 L Urine Opiates Screen Not Detected Ur Buprenorphine Scrn Not Detected Ur Oxycodone Screen Not Detected Urine Methadone Screen Not Detected Urine Fentanyl Screen Not Detected Acetaminophen < 3 Ur Barbiturates Screen Not Detected Valproic Acid 33.3 L Ur Phencyclidine Scrn Not Detected Ur Amphetamines Screen Not Detected U Benzodiazepines Scrn Not Detected Urine Cocaine Screen Not Detected U Marijuana (THC) Screen Not Detected Ethyl Alcohol < 10 Assessment and Plan (1) CAD (coronary artery disease): Status: Acute Plan Depression/suicidal ideation/Mood disorder Treatment plan per psychiatric team AFib, coronary artery disease, heart failure with reduced ejection fraction, orthostatic hypotension/Anginal CP/HTN/HLD History of ID Patient with recent multiple hospitalizations at [facility] for syncope, chest pain. ACS ruled out, patient underwent a cardiac catheterization recently with no areas of PCI identified Patient has had medications optimized, extensively reconciled with outside records, and the , and in an outpatient pharmacy. Ranozaline recently added for chest pain. Continue apixaban 5 mg b.i.d., clopidogrel 75 mg daily, Zetia and Crestor. Continue Imdur, and metoprolol 12.5 mg daily Patient is taking Jardiance, dofetilide 125 mg daily. Midodrine Hold if SBP less than 120 Patient with extensive cardiovascular disease, history of angina. Hypothyroidism Recent TSH 1.28, free T4 within normal limits Continue levothyroxine dosing Autoimmune encephalitis/Seizure DO/Cognitive impairment Continue Depakote/Dapsone and Prednisone taper Followed by Neurologist in [place]. Ostoeoporosis Continue Fosamax weekly, Calcium supplementation Thank you for allowing me to participate in the care of this patient. Will follow as needed. Please reconsult of any acute concerns or issues arise
--- NOTE | 2024-10-29 11:20 | HO.PSYADMNOT ---
HPI Date of Service: 10/29/24 Chief Complaint: depression si Sources of Information: patient interviewed, chart reviewed and crisis/core team assessment reviewed Additional Sources of Information: Pt seen and evaluated 2 pm case reviewed with [facility]ong [employer] supervisor and medical h and p reviewed 10/29 2pm. HPI Subjective Notes: Conditional Voluntary Narrative: The patient is a 74-year-old male living with his who the past few months has become increasingly despondent, has been going to the emergency room with repeated chest pain reportedly seen as anxiety no clear cardiac events despite significant chest pain patient has become increasingly hopeless helpless intrusive thoughts that he would be better off . Patient has been on Paxil he has become increasingly desperate despondent thoughts that there is no way out any can not stand how he is feeling. He describes recent anxiety panic shortness breath at times chest pain and has been evaluated in the [facility] Emergency room over 6 times in the past month. He has felt increasingly hopeless helpless irritable stating is panic attacks and patient has had thoughts to shoot himself. He is not being given he states any medical answers in that there is nothing further really to offer him. He does have an implanted defibrillator. Patient has been increasingly depressed with thoughts of suicide over the past 2 months approximately. Patient appears to chronic unstable angina. Patient does have an appointment to see psychiatric provider. His condition is complicated by being diagnosed and now treated for autoimmune encephalitis Medical Evaluation Reviewed: Yes [facility] Medical History (Updated 10/29/24 @ 23:22 by Joshua Rodrigues MD) STEMI (ST elevation myocardial infarction) Fall Atrial fibrillation with RVR Respiratory failure Limbic encephalitis Hypotension History of blood transfusion Osteopenia Hyperparathyroidism Severe obstructive sleep apnea Hypothyroidism Familial hypocalciuric hypercalcemia Vitamin D deficiency HTN (hypertension) Carpal tunnel syndrome of left wrist Ischemic cardiomyopathy Left carpal tunnel syndrome PTSD (post-traumatic stress disorder) FÉLIX (obstructive sleep apnea) Pulmonary nodule Paroxysmal atrial fibrillation Depression CAD (coronary artery disease) Surgical History Hx of cataract Hx of total knee replacement History of AAA (abdominal aortic aneurysm) repair AICD (automatic cardioverter/defibrillator) present Hx of colonoscopy Hx of discectomy Hx of appendectomy Hx of tonsillectomy S/P CABG x 6 Narrative: History of substance abuse treatment past alcohol use patient has been sober for many years and involved in recovery Family History: depression mother Social History: Patient does have 1 child 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 Substance History: hx alcohol abuse Diagnostics Vital Signs (24Hr): Vital Signs - 24 hr 10/28/24 15:53 10/28/24 19:27 10/28/24 21:58 Temperature 97.9 F 98.2 F Pulse Rate 72 65 65 Respiratory Rate 18 17 Blood Pressure 101/61 103/61 103/61 Pulse Oximetry 95 95 Oxygen Delivery Method Room Air Room Air 10/28/24 22:58 10/29/24 06:31 10/29/24 06:32 Temperature 98.3 F Pulse Rate 70 Respiratory Rate 16 Blood Pressure 96/58 L 91/53 L 91/53 L Pulse Oximetry 95 Oxygen Delivery Method Room Air 10/29/24 08:00 Temperature 98.4 F Pulse Rate 78 Respiratory Rate 16 Blood Pressure 108/58 L Pulse Oximetry 96 Oxygen Delivery Method Room Air BMI result Body Mass Index 24.4 Labs 10/28/24 16:27 10/29/24 08:36 Labs: Laboratory Results - last 48 hr 10/28/24 10/29/24 10/29/24 16:27 05:24 08:36 WBC 9.0 RBC 4.22 L Hgb 13.6 L Hct 40.2 L MCV 95.3 MCH 32.2 MCHC 33.8 RDW 17.8 H Plt Count 150 L MPV 10.0 Immature Gran % (Auto) 1.9 H Neut % (Auto) 89.3 H Lymph % (Auto) 5.0 L [place] % (Auto) 3.6 Eos % (Auto) 0.0 Baso % (Auto) 0.2 Lymph # (Auto) 0.5 L [place] # (Auto) 0.3 Eos # (Auto) 0.0 Baso # (Auto) 0.0 Abs Immat Gran (auto) 0.17 H Absolute Neuts (auto) 8.0 Absolute Nucleated RBC 0.000 Nucleated RBC % (auto) 0.0 Sodium 139 140 Potassium 4.7 3.7 D Chloride 103 105 Carbon Dioxide 28 24 Anion Gap 13 15 BUN 26 H 22 H Creatinine 1.25 1.00 Estim Creat Clear Calc 53.5 66.9 Estimated GFR 56 > 60 POC Glucose 78 Random Glucose 102 139 H Estimat Average Glucose 77 Hemoglobin A1c % 4.3 Calcium 9.1 8.9 Total Bilirubin 1.3 H 1.3 H AST 23 23 ALT 22 36 Alkaline Phosphatase 71 75 Total Protein 5.7 L 5.5 L Albumin 4.2 3.9 Triglycerides 143 Cholesterol 161 LDL Cholesterol, Calc 55 HDL Cholesterol 78 Vitamin B12 367 Folate 8.0 TSH 1.14 Free T4 1.28 Urine Color Yellow Urine Appearance Clear Urine pH 7.5 Ur Specific [place] 1.020 Urine Protein Negative Urine Glucose (UA) >=1000 H Urine Ketones Negative Urine Blood Negative Urine Nitrite Negative Ur Leukocyte Esterase Negative Urine RBC 0-2 Urine WBC 0-5 Ur Squamous Epith Cells 0-2 Urine Bacteria None Seen Hyaline Casts 0-2 Salicylates < 5.0 L Urine Opiates Screen Not Detected Ur Buprenorphine Scrn Not Detected Ur Oxycodone Screen Not Detected Urine Methadone Screen Not Detected Urine Fentanyl Screen Not Detected Acetaminophen < 3 Ur Barbiturates Screen Not Detected Valproic Acid 33.3 L Ur Phencyclidine Scrn Not Detected Ur Amphetamines Screen Not Detected U Benzodiazepines Scrn Not Detected Urine Cocaine Screen Not Detected U Marijuana (THC) Screen Not Detected Ethyl Alcohol < 10 Meds/Allergies Meds Home Medications ?Medication ?Instructions ?Recorded ?Confirmed ?Type acetaminophen 325 mg capsule 325 mg PO QID PRN Pain 03/04/23 10/28/24 History clopidogrel 75 mg tablet 75 mg PO BEDTIME 03/04/23 10/28/24 History thiamine HCl (vitamin B1) 100 mg 100 mg PO DAILY 03/04/23 10/28/24 History tablet alendronate 70 mg tablet 70 mg PO QWEEK 05/20/23 10/28/24 History ascorbate calcium (vitamin C) 500 500 mg PO DAILY 12/16/23 10/28/24 History mg tablet divalproex 500 mg tablet,delayed 500 mg PO BID 12/16/23 10/28/24 History release modafinil 100 mg tablet 100 mg PO DAILY 12/16/23 10/28/24 History vitamins A,C,Y-jdjq-qrpetr 4,296 1 cap PO BID 12/16/23 10/28/24 History mcg-226 mg-90 mg capsule (PreserVision AREDS) melatonin 3 mg capsule 6 mg PO BEDTIME PRN Insomnia 07/27/24 10/29/24 History metoprolol succinate 50 mg 12.5 mg PO BEDTIME 07/27/24 10/28/24 History tablet,extended release 24 hr (Toprol XL) midodrine 5 mg tablet 10 mg PO TID PRN Hypotension 07/27/24 10/28/24 History cholecalciferol (vitamin D3) 25 50 mcg PO DAILY 10/28/24 10/28/24 History mcg (1,000 unit) tablet dapsone 100 mg tablet 100 mg PO DAILY 10/28/24 10/28/24 History dofetilide 125 mcg capsule 250 mcg PO DAILY 10/28/24 10/29/24 History isosorbide mononitrate 30 mg 30 mg PO DAILY 10/28/24 10/28/24 History tablet,extended release 24 hr prednisone 20 mg tablet See Taper PO DAILY 10/28/24 10/29/24 History ranolazine 500 mg tablet,extended 500 mg PO BID 10/28/24 10/28/24 History release,12 hr levothyroxine 200 mcg tablet 200 mcg PO DAILY@59910/29/24 10/29/24 History levothyroxine 50 mcg tablet 50 mcg PO MOWEFR@59910/29/24 10/29/24 History Allergies Allergies Allergy/AdvReac Type Severity Reaction Status Date / Time Penicillins (PENICILLINS) Allergy Intermediate ITCHY RASH Verified 10/28/24 15:57 Mental Status Exam Mental Status Exam Patient Appearance: Well Grooomed Patient Orientation: Person, Place, Time and Situation Level of Consciousness: Awake and Appropriate Patient Behavior: Appropriate Mood Description: Depressed Affect Description: Constricted, Depressed and Apprehensive Patient Cognition Impaired: No Ability to Follow Directions: Good Speech Pattern: Clear Memory Description: 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 Engineer 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 and Episodic Impaired Hallucinations: None Delusions: Not Present Thought Process: Intact and Goal Oriented Thought Content: positive for Goal Oriented, positive for Preoccupation, negative for Suicidal Ideation or negative for Homicidal Ideation Depressive Symptoms: Increased Anxiety, Increased Irritability, Hopelessness, Increased Fatigue, Loss of Energy and Difficulty Concentrating Judgement: Fair Judgement and Insight: Denies current thoughts of self-harm states he has become increasingly desperate with intrusive thoughts of shooting himself Guns currently with his daughter Assessment & Plan Assessment & Plan (1) Suicidal ideations: Status: Acute Code(s): R45.851 - Suicidal ideations (2) Depression with suicidal ideation: Status: Acute Code(s): F32.A - Depression, unspecified; R45.851 - Suicidal ideations (3) CAD (coronary artery disease): Status: Acute Code(s): I25.10 - Atherosclerotic heart disease of [place] coronary artery without angina pectoris Plan Patient has been dealing with a number of stressors. 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 He has become increasingly despondent desperate with increasing chest pain that has been difficult to tell between ASHD versus panic Ativan 0.6 PRN anxiety seems unbalanced to be worth it at this time given patient's current anxiety mood instability. Might benefit if steroids could be decreased monitor response to Ativan p.r.n.. Consider addition of 7.5 mg p.o. Remeron q.h.s. p.r.n.. Patient does have conduction abnormalities in addition to ASHD which must be taken into account in addition to hypotension and being on midodrine would benefit from strategies to manage anxiety and panic Patient educated on: medication risk/benefits Informed Consent: does not understand Reason for continued inpatient stay Substantial Risk for: harm to self, harm to others and med/psych decompensation Statement Statement: I have reviewed the history and physical and performed a pertinent examination on my patient. No changes have occurred unless specified. If the History and Physical was not performed prior to admission, the Hospitalist's service will be consulted for completing the admission physical. Time Spent With Patient Time: Total time managing care of this patient today ____ minutes.
--- NOTE | 2024-10-29 12:28 | PC.NURSE ---
Pt c/o 12/12 anxiety given Ativan 0.5mg
--- NOTE | 2024-10-29 13:33 | PHA.MEDREC ---
Pharmacy Consult ? Medication Reconciliation Pharmacy has completed the medication reconciliation. Worked with Iona Castelan to confirm some doing questions with . Notably, the Dofetilide is being given 250mg once daily by the spouse at home, the prednisone taper is moving to 40mg daily x 7 days today, and the levothyroxine is 200mcg daily with an extra 50mcg on Friday, Friday, , and Friday.
[2024-10-29 20:00] VITALS: BP 108/57; PULSE 80; RESP 16; TEMP 36.5; O2SAT 94
[2024-10-29] MEDS: Metoprolol Succinate ER 12.5 MG HALFTAB.ER.24H PO (21:04)
[2024-10-30 02:03] VITALS: BP 116/66; PULSE 63; RESP 16; O2SAT 96
[2024-10-30 08:00] VITALS: BP 107/55; PULSE 73; RESP 14; TEMP 36.5; O2SAT 96
[2024-10-30] MEDS: Calcium + Vitamin D 250 MG TABLET PO ×2 (08:57→20:09)
--- NOTE | 2024-10-30 19:23 | HO.PSYCHPN ---
Subjective Subjective Date of Service: 10/30/24 Reason For Visit: depression si Subjective Notes: Conditional Voluntary Interim History: Pt sleeping through the night. He reports his mood is good He denies SI/HI. he is taking medications as prescribed, seems confused as to reason for being admitted and not remembering suicidal statements. Medication Compliance: Yes Review of Systems Review of Systems Denies any shortness of breath, chest pain, dizziness, lightheadedness, abdominal pain or discomfort, nausea vomiting or diarrhea Yes all other systems are reviewed and are negative Mental Status Exam Mental Status Exam Patient Appearance: Well Grooomed Patient Orientation: Person, Place, Time and Situation Level of Consciousness: Awake and Appropriate Patient Behavior: Appropriate Mood Description: Depressed Affect Description: Constricted, Depressed and Apprehensive Patient Cognition Impaired: No Ability to Follow Directions: Good Speech Pattern: Clear Memory Description: Residential Impaired and Episodic Impaired Diagnostics Vital Signs (24Hr): Vital Signs - 24 hr 10/29/24 20:00 10/30/24 02:03 10/30/24 08:00 Temperature 97.7 F 97.7 F Pulse Rate 80 63 73 Respiratory Rate 16 16 14 Blood Pressure 108/57 L 116/66 107/55 L Pulse Oximetry 94 96 96 Oxygen Delivery Method Room Air Room Air Room Air BMI result Body Mass Index 24.4 Labs 10/31/24 14:38 10/31/24 14:38 Labs: Laboratory Results - last 48 hr 10/29/24 10/29/24 05:24 08:36 Sodium 140 Potassium 3.7 D Chloride 105 Carbon Dioxide 24 Anion Gap 15 BUN 22 H Creatinine 1.00 Estim Creat Clear Calc 66.9 Estimated GFR > 60 POC Glucose 78 Random Glucose 139 H Estimat Average Glucose 77 Hemoglobin A1c % 4.3 Calcium 8.9 Total Bilirubin 1.3 H AST 23 ALT 36 Alkaline Phosphatase 75 Total Protein 5.5 L Albumin 3.9 Triglycerides 143 Cholesterol 161 LDL Cholesterol, Calc 55 HDL Cholesterol 78 Vitamin B12 367 Folate 8.0 TSH 1.14 Free T4 1.28 Valproic Acid 33.3 L Medications Medications Current Medications Acetaminophen (Acetaminophen 325 Mg Tablet) 650 mg PO Q6H PRN PRN Reason: Headache/Pain, Scale 1-10 Al Hydroxide/Mg Hydroxide (Magnesium Hydrox/Alum Hydrox 30 Ml Oral.Susp) 30 ml PO Q6H PRN PRN Reason: Heartburn/Nausea Apixaban (Apixaban 5 Mg Tablet) 5 mg PO BID [facility] Last Admin: 10/30/24 08:57 Dose: 5 mg Ascorbic Acid (Ascorbic Acid 500 Mg Tablet) 500 mg PO DAILY [facility] Last Admin: 10/30/24 08:56 Dose: 500 mg Atorvastatin Calcium (Atorvastatin Calcium 80 Mg Tablet) 80 mg PO DAILY [facility] Last Admin: 10/30/24 08:57 Dose: 80 mg Calcium Carbonate/Cholecalciferol (Calcium + Vitamin D 250 Mg Tablet) 250 mg PO BID [facility] Last Admin: 10/30/24 08:57 Dose: 250 mg Clopidogrel Bisulfate (Clopidogrel Bisulfate 75 Mg Tablet) 75 mg PO BEDTIME [facility] Last Admin: 10/29/24 21:04 Dose: 75 mg Dapsone (Dapsone 25 Mg Tablet) 100 mg PO DAILY [facility] Last Admin: 10/30/24 08:58 Dose: 100 mg Divalproex Sodium (Divalproex Sodium 500 Mg Tablet.Dr) 500 mg PO BID [facility] Last Admin: 10/30/24 08:57 Dose: 500 mg Dofetilide (Dofetilide 125 Mcg Capsule) 125 mcg PO DAILY@1500 [facility] Last Admin: 10/30/24 15:10 Dose: 125 mcg Ezetimibe (Ezetimibe 10 Mg Tablet) 10 mg PO BEDTIME [facility] Last Admin: 10/29/24 21:04 Dose: 10 mg Empagliflozin (Empagliflozin 10 Mg Tablet) 10 mg PO DAILY [facility] Last Admin: 10/30/24 08:58 Dose: 10 mg Isosorbide Mononitrate (Isosorbide Mononitrate 30 Mg Tab.Er.24h) 30 mg PO DAILY [facility]; Protocol Last Admin: 10/30/24 08:58 Dose: 30 mg Levothyroxine Sodium (Levothyroxine Sodium 50 Mcg Tablet) 50 mcg PO SuTuThSa@0600 [facility] Last Admin: 10/30/24 05:56 Dose: 50 mcg Levothyroxine Sodium (Levothyroxine Sodium 200 Mcg Tablet) 200 mcg PO DAILY@0600 [facility] Last Admin: 10/30/24 05:56 Dose: 200 mcg Lorazepam (Lorazepam 0.5 Mg Tablet) 0.5 mg PO Q4H PRN PRN Reason: Anxiety Last Admin: 10/30/24 13:20 Dose: 0.5 mg Magnesium Hydroxide (Milk Of Magnesia 30 Ml Oral.Susp) 30 ml PO DAILY PRN PRN Reason: Constipation Metoprolol Succinate (Metoprolol Succinate Er 12.5 Mg Halftab.Er.24h) 12.5 mg PO BEDTIME [facility]; Protocol Last Admin: 10/29/24 21:04 Dose: 12.5 mg Midodrine (Midodrine Hcl 10 Mg Tablet) 10 mg PO TID PRN PRN Reason: Hypotension Last Admin: 10/29/24 06:32 Dose: 10 mg Modafinil (Modafinil 100 Mg Tablet) 100 mg PO DAILY [facility] Last Admin: 10/30/24 08:56 Dose: 100 mg Pantoprazole Sodium (Pantoprazole Sodium 20 Mg Tablet.Dr) 40 mg PO DAILY [facility] Last Admin: 10/30/24 08:57 Dose: 40 mg Paroxetine HCl (Paroxetine Hcl 30 Mg Tablet) 30 mg PO DAILY [facility] Last Admin: 10/30/24 08:56 Dose: 30 mg Prednisone (Prednisone 20 Mg Tablet) 30 mg PO DAILY [facility]; Taper Stop: 11/20/24 08:59 Last Admin: 10/30/24 08:57 Dose: 30 mg Ranolazine (Ranolazine 500 Mg Tab.Er.12h) 500 mg PO BID [facility] Last Admin: 10/30/24 08:57 Dose: 500 mg Thiamine HCl (Thiamine Hcl 100 Mg Tablet) 100 mg PO DAILY [facility] Last Admin: 10/30/24 08:57 Dose: 100 mg Vitamin D (Cholecalciferol (Vitamin D3) 25 Mcg Tablet) 50 mcg PO DAILY [facility] Last Admin: 10/30/24 08:57 Dose: 50 mcg Allergies Allergies Allergy/AdvReac Type Severity Reaction Status Date / Time Penicillins (PENICILLINS) Allergy Intermediate ITCHY RASH Verified 10/28/24 15:57 Assessment & Plan Assessment & Plan (1) Suicidal ideations: Status: Acute Code(s): R45.851 - Suicidal ideations (2) Depression with suicidal ideation: Status: Acute Code(s): F32.A - Depression, unspecified; R45.851 - Suicidal ideations (3) CAD (coronary artery disease): Status: Acute Code(s): I25.10 - Atherosclerotic heart disease of [place] coronary artery without angina pectoris Plan Patient has been dealing with a number of stressors. 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 He has become increasingly despondent desperate with increasing chest pain that has been difficult to tell between ASHD versus panic Ativan 0.6 PRN anxiety seems unbalanced to be worth it at this time given patient's current anxiety mood instability. Might benefit if steroids could be decreased monitor response to Ativan p.r.n.. Consider addition of 7.5 mg p.o. Remeron q.h.s. p.r.n.. Patient does have conduction abnormalities in addition to ASHD which must be taken into account in addition to hypotension and being on midodrine would benefit from strategies to manage anxiety and panic 10/30 continue tx. Reason for continued inpatient stay Substantial Risk for: inability to function Time Spent With Patient Time: Total time managing care of this patient today ____ minutes.
[2024-10-30 20:00] VITALS: BP 99/54; PULSE 70; RESP 16; TEMP 36.9; O2SAT 94
[2024-10-30] MEDS: Metoprolol Succinate ER 12.5 MG HALFTAB.ER.24H PO (20:09)
[2024-10-31] VITALS (8 sets, daily range): BP systolic 87–140; BP diastolic 50–77; PULSE 64–94; RESP 16–17; TEMP 36.2–36.6; O2SAT 93–95
[2024-10-31] MEDS: Calcium + Vitamin D 250 MG TABLET PO ×2 (09:08→21:04)
--- NOTE | 2024-10-31 13:33 | ECG_ITS ---
Test Reason : chest pain Blood Pressure : */* mmHG Vent. Rate : 64 BPM Atrial Rate : 64 BPM P-R Int : 146 ms QRS Dur : 158 ms QT Int : 462 ms P-R-T Axes : 59 -62 124 degrees QTcB Int : 476 ms Normal sinus rhythm Right bundle branch block Left anterior fascicular block Bifascicular block Inferior infarct (cited on or before 31-Jul-2022) Anterolateral infarct (cited on or before 31-Jul-2022) Abnormal ECG When compared with ECG of 28-Oct-2024 19:39, No significant change was found Referred By: Caryn Jacinto Electronically Signed By: AQUILES MYLES MD
[2024-10-31 14:46] LABS: Hemoglobin 12.5 g/dl (14.0-18.0); NRBC Abs Auto 0.000 X10*3/uL (0.0-0.012); NRBC Pct Auto 0.0 /100WBC (0.0-0.2); PLT CLUMP 1
[2024-10-31 14:47] LABS: Hematocrit 38.1 % (42.0-52.0); Mean Corpuscular HGB Conc 32.8 g/dl (31.0-36.0); Mean Corpuscular Hemoglobin 32.5 pg (27.0-33.0); Mean Corpuscular Volume 99.0 fL (80.0-98.0); Red Blood Count 3.85 X10*6/uL (4.60-5.80)
[2024-10-31 14:49] LABS: Platelet Count 147 X10*3/uL (160-400); White Blood Count 9.8 X10*3/uL (4.8-10.8)
[2024-10-31 14:58] LABS: Anion Gap 13 (12-20); Blood Urea Nitrogen 23 mg/dL (9-16); Calcium 9.1 mg/dL (8.4-10.2); Carbon Dioxide 27 mmol/L (22-29); Chloride 103 mmol/L (96-108); Creatinine Clr Calc Pharmacy 63.7; Estimated Glomerular Filt Rate > 60; Potassium 4.9 mmol/L (3.3-5.1); Sodium 138 mmol/L (135-145)
--- NOTE | 2024-10-31 15:00 | P.EN_ITS ---
Event Note Date of Service: 10/31/24 Event Note: Patient is a 74-year-old male with a complex past medical history of including hypertension, hyperlipidemia, coronary artery disease, status post CABG about 20 years ago, systolic and diastolic heart failure with reduced ejection fraction of 20-30 per last echo, AICD placed 03/12, paroxysmal AFib, HTN, HLD, History of CO, FÉLIX Chronic stable angina, History of anginal Chest pain, hypotension, AAA with percutaneous repair 2018, hypothyroidism, history of autoimmune encephalitis, seizure disorder, depression, alcohol dependence, and cognitive impairment. Hospitalist consult placed for chest pain. Pt with a long and complicated cardiac hx, has been complaining of chest pain while on [facility] that is normally well-controlled with trans lingual nitro. Today pt was experiencing central chest pain at rest radiating to his neck bilaterally that was not keara viated by nitro x3. Symptoms have felt similar to prior, though worse. Complains of some lightheadedness and dizziness, as well as SOB and difficulty breathing. Pt has had many similar episodes previously, and had several recent admissions to [facility] for similar symptoms of unstable angina, including last admission on 10/24/2024 prior to transfer to [facility]. Pt has had extensive recent cardiac workup, including cardiac catheterization procedure on 10/20/2024 which showed continued patency of HARTLEY-LAD and occluded [place] vessels and bypass grafts. It did not find any targets for PCI. Has also had recent echo that did not show any pericardial effusion or change in LVEF. On [facility] here, patient's BP was noted to drop to 87/50, likely secondary to nitro use. Has since recovered to 97/63. Pt was feeling well enough to ambulate by himself under supervision back to his bed. Repeat EKG was negative for acute ischemic changes, and was similar to prior showing normal sinus rhythm and chronic bifascicular block. Labs were significant for H&H 12.5/38.1, mildly reduced from prior on 10/28/2024. Troponin WNL at 16.7. No electrolyte abnormalities. Renal function baseline. Plan: Avoid nitro for now due to soft BP No additional workup or treatment indicated at this time. Time Spent With Patient Time: Total time managing care of this patient today ____ minutes.
[2024-10-31 15:07] LABS: Troponin-I High Sensitivity 16.7 ng/L (<3.5-35.0)
--- NOTE | 2024-10-31 17:05 | P.PNPSI_ITS ---
Subjective Subjective Date of Service: 10/31/24 Reason For Visit: depression si Subjective Notes: Conditional Voluntary and 3 Day Interim History: Pt sleeping through the night. He reports his mood is relaxed He denies SI/HI. he is taking medications as prescribed, seems confused as to reason for being admitted and not remembering suicidal statements. 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 and Episodic Impaired Diagnostics Vital Signs (24Hr): Vital Signs - 24 hr 10/30/24 20:00 10/31/24 00:11 10/31/24 09:10 Temperature 98.4 F Pulse Rate 70 67 Respiratory Rate 16 Blood Pressure 99/54 L 140/77 H 102/57 L Pulse Oximetry 94 Oxygen Delivery Method Room Air 10/31/24 09:12 10/31/24 11:57 10/31/24 12:45 Temperature 97.2 F Pulse Rate 94 73 64 Respiratory Rate 16 Blood Pressure 105/69 87/50 L 104/59 L Pulse Oximetry 95 Oxygen Delivery Method Room Air 10/31/24 12:50 Temperature Pulse Rate 68 Respiratory Rate Blood Pressure 97/63 Pulse Oximetry Oxygen Delivery Method BMI result Body Mass Index 24.4 Labs 10/31/24 14:38 10/31/24 14:38 Labs: Laboratory Results - last 48 hr 10/31/24 14:38 WBC 9.8 RBC 3.85 L Hgb 12.5 L Hct 38.1 L MCV 99.0 H MCH 32.5 MCHC 32.8 RDW 18.1 H Plt Count 147 L MPV 9.7 Absolute Nucleated RBC 0.000 Nucleated RBC % (auto) 0.0 Sodium 138 Potassium 4.9 D Chloride 103 Carbon Dioxide 27 Anion Gap 13 BUN 23 H Creatinine 1.05 Estim Creat Clear Calc 63.7 Estimated GFR > 60 Random Glucose 115 Calcium 9.1 Troponin I High Sens 16.7 D Medications Medications Current Medications Acetaminophen (Acetaminophen 325 Mg Tablet) 650 mg PO Q6H PRN PRN Reason: Headache/Pain, Scale 1-10 Al Hydroxide/Mg Hydroxide (Magnesium Hydrox/Alum Hydrox 30 Ml Oral.Susp) 30 ml PO Q6H PRN PRN Reason: Heartburn/Nausea Apixaban (Apixaban 5 Mg Tablet) 5 mg PO BID [facility] Last Admin: 10/31/24 09:10 Dose: 5 mg Ascorbic Acid (Ascorbic Acid 500 Mg Tablet) 500 mg PO DAILY [facility] Last Admin: 10/31/24 09:08 Dose: 500 mg Atorvastatin Calcium (Atorvastatin Calcium 80 Mg Tablet) 80 mg PO DAILY [facility] Last Admin: 10/31/24 09:09 Dose: 80 mg Calcium Carbonate/Cholecalciferol (Calcium + Vitamin D 250 Mg Tablet) 250 mg PO BID [facility] Last Admin: 10/31/24 09:08 Dose: 250 mg Clopidogrel Bisulfate (Clopidogrel Bisulfate 75 Mg Tablet) 75 mg PO BEDTIME [facility] Last Admin: 10/30/24 20:09 Dose: 75 mg Dapsone (Dapsone 25 Mg Tablet) 100 mg PO DAILY [facility] Last Admin: 10/31/24 09:07 Dose: 100 mg Divalproex Sodium (Divalproex Sodium 500 Mg Tablet.Dr) 500 mg PO BID [facility] Last Admin: 10/31/24 09:08 Dose: 500 mg Dofetilide (Dofetilide 125 Mcg Capsule) 125 mcg PO DAILY@1500 [facility] Last Admin: 10/31/24 14:08 Dose: 125 mcg Ezetimibe (Ezetimibe 10 Mg Tablet) 10 mg PO BEDTIME [facility] Last Admin: 10/30/24 20:09 Dose: 10 mg Empagliflozin (Empagliflozin 10 Mg Tablet) 10 mg PO DAILY [facility] Last Admin: 10/31/24 09:10 Dose: 10 mg Isosorbide Mononitrate (Isosorbide Mononitrate 30 Mg Tab.Er.24h) 30 mg PO DAILY [facility]; Protocol Last Admin: 10/31/24 09:10 Dose: 30 mg Levothyroxine Sodium (Levothyroxine Sodium 50 Mcg Tablet) 50 mcg PO SuTuThSa@0600 [facility] Last Admin: 10/31/24 05:37 Dose: 50 mcg Levothyroxine Sodium (Levothyroxine Sodium 200 Mcg Tablet) 200 mcg PO DAILY@0600 [facility] Last Admin: 10/31/24 05:38 Dose: 200 mcg Lorazepam (Lorazepam 0.5 Mg Tablet) 0.5 mg PO Q4H PRN PRN Reason: Anxiety Last Admin: 10/31/24 15:08 Dose: 0.5 mg Magnesium Hydroxide (Milk Of Magnesia 30 Ml Oral.Susp) 30 ml PO DAILY PRN PRN Reason: Constipation Metoprolol Succinate (Metoprolol Succinate Er 12.5 Mg Halftab.Er.24h) 12.5 mg PO BEDTIME [facility]; Protocol Last Admin: 10/30/24 20:09 Dose: 12.5 mg Midodrine (Midodrine Hcl 10 Mg Tablet) 10 mg PO TID PRN PRN Reason: Hypotension Last Admin: 10/29/24 06:32 Dose: 10 mg Modafinil (Modafinil 100 Mg Tablet) 100 mg PO DAILY [facility] Last Admin: 10/31/24 09:08 Dose: 100 mg Nitroglycerin (Nitroglycerin 0.4 Mg Tab.Subl) 0.4 mg SUBLINGUAL Q5MX3 PRN PRN Reason: Chest Pain Last Admin: 10/31/24 12:50 Dose: 0.4 mg Pantoprazole Sodium (Pantoprazole Sodium 20 Mg Tablet.Dr) 40 mg PO DAILY [facility] Last Admin: 10/31/24 09:08 Dose: 40 mg Paroxetine HCl (Paroxetine Hcl 30 Mg Tablet) 30 mg PO DAILY [facility] Last Admin: 10/31/24 09:10 Dose: 30 mg Prednisone (Prednisone 20 Mg Tablet) 30 mg PO DAILY [facility]; Taper Stop: 11/20/24 08:59 Last Admin: 10/31/24 09:08 Dose: 30 mg Ranolazine (Ranolazine 500 Mg Tab.Er.12h) 500 mg PO BID [facility] Last Admin: 10/31/24 09:08 Dose: 500 mg Thiamine HCl (Thiamine Hcl 100 Mg Tablet) 100 mg PO DAILY [facility] Last Admin: 10/31/24 09:08 Dose: 100 mg Vitamin D (Cholecalciferol (Vitamin D3) 25 Mcg Tablet) 50 mcg PO DAILY [facility] Last Admin: 10/31/24 09:10 Dose: 50 mcg Allergies Allergies Allergy/AdvReac Type Severity Reaction Status Date / Time Penicillins (PENICILLINS) Allergy Intermediate ITCHY RASH Verified 10/28/24 15:57 Assessment & Plan Assessment & Plan (1) Depression with suicidal ideation: Status: Acute Code(s): F32.A - Depression, unspecified; R45.851 - Suicidal ideations (2) Suicidal ideations: Status: Acute Code(s): R45.851 - Suicidal ideations (3) CAD (coronary artery disease): Status: Acute Code(s): I25.10 - Atherosclerotic heart disease of [place] coronary artery without angina pectoris Plan Patient has been dealing with a number of stressors. 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 He has become increasingly despondent desperate with increasing chest pain that has been difficult to tell between ASHD versus panic Ativan 0.6 PRN anxiety seems unbalanced to be worth it at this time given patient's current anxiety mood instability. Might benefit if steroids could be decreased monitor response to Ativan p.r.n.. Consider addition of 7.5 mg p.o. Remeron q.h.s. p.r.n.. Patient does have conduction abnormalities in addition to ASHD which must be taken into account in addition to hypotension and being on midodrine would benefit from strategies to manage anxiety and panic 10/30 continue tx. 10/31 continue tx. Reason for continued inpatient stay Substantial Risk for: inability to function Time Spent With Patient Time: Total time managing care of this patient today ____ minutes.
--- NOTE | 2024-10-31 17:07 | HO.PSYCHPN ---
Subjective Subjective Date of Service: 10/31/24 Reason For Visit: depression si Subjective Notes: Conditional Voluntary Interim History: Pt sleeping through the night. He reports his mood is relaxed He denies SI/HI. he is taking medications as prescribed, seems confused as to reason for being admitted and not remembering suicidal statements. CBC done today- macrocytic anemia, stable H&H. 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 Diagnostics Vital Signs (24Hr): Vital Signs - 24 hr 10/30/24 20:00 10/31/24 00:11 10/31/24 09:10 Temperature 98.4 F Pulse Rate 70 67 Respiratory Rate 16 Blood Pressure 99/54 L 140/77 H 102/57 L Pulse Oximetry 94 Oxygen Delivery Method Room Air 10/31/24 09:12 10/31/24 11:57 10/31/24 12:45 Temperature 97.2 F Pulse Rate 94 73 64 Respiratory Rate 16 Blood Pressure 105/69 87/50 L 104/59 L Pulse Oximetry 95 Oxygen Delivery Method Room Air 10/31/24 12:50 Temperature Pulse Rate 68 Respiratory Rate Blood Pressure 97/63 Pulse Oximetry Oxygen Delivery Method BMI result Body Mass Index 24.4 Labs 10/31/24 14:38 10/31/24 14:38 Labs: Laboratory Results - last 48 hr 10/31/24 14:38 WBC 9.8 RBC 3.85 L Hgb 12.5 L Hct 38.1 L MCV 99.0 H MCH 32.5 MCHC 32.8 RDW 18.1 H Plt Count 147 L MPV 9.7 Absolute Nucleated RBC 0.000 Nucleated RBC % (auto) 0.0 Sodium 138 Potassium 4.9 D Chloride 103 Carbon Dioxide 27 Anion Gap 13 BUN 23 H Creatinine 1.05 Estim Creat Clear Calc 63.7 Estimated GFR > 60 Random Glucose 115 Calcium 9.1 Troponin I High Sens 16.7 D Medications Medications Current Medications Acetaminophen (Acetaminophen 325 Mg Tablet) 650 mg PO Q6H PRN PRN Reason: Headache/Pain, Scale 1-10 Al Hydroxide/Mg Hydroxide (Magnesium Hydrox/Alum Hydrox 30 Ml Oral.Susp) 30 ml PO Q6H PRN PRN Reason: Heartburn/Nausea Apixaban (Apixaban 5 Mg Tablet) 5 mg PO BID [facility] Last Admin: 10/31/24 09:10 Dose: 5 mg Ascorbic Acid (Ascorbic Acid 500 Mg Tablet) 500 mg PO DAILY [facility] Last Admin: 10/31/24 09:08 Dose: 500 mg Atorvastatin Calcium (Atorvastatin Calcium 80 Mg Tablet) 80 mg PO DAILY [facility] Last Admin: 10/31/24 09:09 Dose: 80 mg Calcium Carbonate/Cholecalciferol (Calcium + Vitamin D 250 Mg Tablet) 250 mg PO BID [facility] Last Admin: 10/31/24 09:08 Dose: 250 mg Clopidogrel Bisulfate (Clopidogrel Bisulfate 75 Mg Tablet) 75 mg PO BEDTIME [facility] Last Admin: 10/30/24 20:09 Dose: 75 mg Dapsone (Dapsone 25 Mg Tablet) 100 mg PO DAILY [facility] Last Admin: 10/31/24 09:07 Dose: 100 mg Divalproex Sodium (Divalproex Sodium 500 Mg Tablet.Dr) 500 mg PO BID [facility] Last Admin: 10/31/24 09:08 Dose: 500 mg Dofetilide (Dofetilide 125 Mcg Capsule) 125 mcg PO DAILY@1500 [facility] Last Admin: 10/31/24 14:08 Dose: 125 mcg Ezetimibe (Ezetimibe 10 Mg Tablet) 10 mg PO BEDTIME [facility] Last Admin: 10/30/24 20:09 Dose: 10 mg Empagliflozin (Empagliflozin 10 Mg Tablet) 10 mg PO DAILY [facility] Last Admin: 10/31/24 09:10 Dose: 10 mg Isosorbide Mononitrate (Isosorbide Mononitrate 30 Mg Tab.Er.24h) 30 mg PO DAILY [facility]; Protocol Last Admin: 10/31/24 09:10 Dose: 30 mg Levothyroxine Sodium (Levothyroxine Sodium 50 Mcg Tablet) 50 mcg PO SuTuThSa@0600 [facility] Last Admin: 10/31/24 05:37 Dose: 50 mcg Levothyroxine Sodium (Levothyroxine Sodium 200 Mcg Tablet) 200 mcg PO DAILY@0600 [facility] Last Admin: 10/31/24 05:38 Dose: 200 mcg Lorazepam (Lorazepam 0.5 Mg Tablet) 0.5 mg PO Q4H PRN PRN Reason: Anxiety Last Admin: 10/31/24 15:08 Dose: 0.5 mg Magnesium Hydroxide (Milk Of Magnesia 30 Ml Oral.Susp) 30 ml PO DAILY PRN PRN Reason: Constipation Metoprolol Succinate (Metoprolol Succinate Er 12.5 Mg Halftab.Er.24h) 12.5 mg PO BEDTIME [facility]; Protocol Last Admin: 10/30/24 20:09 Dose: 12.5 mg Midodrine (Midodrine Hcl 10 Mg Tablet) 10 mg PO TID PRN PRN Reason: Hypotension Last Admin: 10/29/24 06:32 Dose: 10 mg Modafinil (Modafinil 100 Mg Tablet) 100 mg PO DAILY [facility] Last Admin: 10/31/24 09:08 Dose: 100 mg Nitroglycerin (Nitroglycerin 0.4 Mg Tab.Subl) 0.4 mg SUBLINGUAL Q5MX3 PRN PRN Reason: Chest Pain Last Admin: 10/31/24 12:50 Dose: 0.4 mg Pantoprazole Sodium (Pantoprazole Sodium 20 Mg Tablet.Dr) 40 mg PO DAILY [facility] Last Admin: 10/31/24 09:08 Dose: 40 mg Paroxetine HCl (Paroxetine Hcl 30 Mg Tablet) 30 mg PO DAILY [facility] Last Admin: 10/31/24 09:10 Dose: 30 mg Prednisone (Prednisone 20 Mg Tablet) 30 mg PO DAILY [facility]; Taper Stop: 11/20/24 08:59 Last Admin: 10/31/24 09:08 Dose: 30 mg Ranolazine (Ranolazine 500 Mg Tab.Er.12h) 500 mg PO BID [facility] Last Admin: 10/31/24 09:08 Dose: 500 mg Thiamine HCl (Thiamine Hcl 100 Mg Tablet) 100 mg PO DAILY [facility] Last Admin: 10/31/24 09:08 Dose: 100 mg Vitamin D (Cholecalciferol (Vitamin D3) 25 Mcg Tablet) 50 mcg PO DAILY [facility] Last Admin: 10/31/24 09:10 Dose: 50 mcg Allergies Allergies Allergy/AdvReac Type Severity Reaction Status Date / Time Penicillins (PENICILLINS) Allergy Intermediate ITCHY RASH Verified 10/28/24 15:57 Assessment & Plan Assessment & Plan (1) Depression with suicidal ideation: Status: Acute Code(s): F32.A - Depression, unspecified; R45.851 - Suicidal ideations (2) Suicidal ideations: Status: Acute Code(s): R45.851 - Suicidal ideations (3) CAD (coronary artery disease): Status: Acute Code(s): I25.10 - Atherosclerotic heart disease of [place] coronary artery without angina pectoris Plan Patient has been dealing with a number of stressors. 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 He has become increasingly despondent desperate with increasing chest pain that has been difficult to tell between ASHD versus panic Ativan 0.6 PRN anxiety seems unbalanced to be worth it at this time given patient's current anxiety mood instability. Might benefit if steroids could be decreased monitor response to Ativan p.r.n.. Consider addition of 7.5 mg p.o. Remeron q.h.s. p.r.n.. Patient does have conduction abnormalities in addition to ASHD which must be taken into account in addition to hypotension and being on midodrine would benefit from strategies to manage anxiety and panic 10/30 continue tx. 10/31 continue tx. Reason for continued inpatient stay Substantial Risk for: inability to function Time Spent With Patient Time: Total time managing care of this patient today ____ minutes.
[2024-10-31] MEDS: Metoprolol Succinate ER 12.5 MG HALFTAB.ER.24H PO (21:04)
[2024-11-01 08:00] VITALS: BP 105/58; PULSE 60; RESP 16; TEMP 36.2; O2SAT 97
[2024-11-01] MEDS: Calcium + Vitamin D 250 MG TABLET PO ×2 (08:23→21:55)
[2024-11-01 09:25] VITALS: BP 105/58
[2024-11-01 20:00] VITALS: BP 94/51; PULSE 79; RESP 18; TEMP 35.9; O2SAT 94
[2024-11-01 21:45] VITALS: BP 102/60; PULSE 89
[2024-11-01] MEDS: Metoprolol Succinate ER 12.5 MG HALFTAB.ER.24H PO (21:55)
[2024-11-02] VITALS (13 sets, daily range): BP systolic 81–109; BP diastolic 53–65; PULSE 59–92; RESP 14–20; TEMP 36.3–36.8; O2SAT 90–97
--- NOTE | 2024-11-02 02:54 | ECG_ITS ---
Test Reason : CP Blood Pressure : */* mmHG Vent. Rate : 62 BPM Atrial Rate : 62 BPM P-R Int : 144 ms QRS Dur : 156 ms QT Int : 472 ms P-R-T Axes : 42 -59 126 degrees QTcB Int : 479 ms Normal sinus rhythm Right bundle branch block Left anterior fascicular block Bifascicular block Left ventricular hypertrophy with repolarization abnormality ( R in aVL ) Inferior infarct (cited on or before 31-Jul-2022) Anterolateral infarct (cited on or before 31-Jul-2022) Abnormal ECG When compared with ECG of 31-Oct-2024 13:46, Questionable change in initial forces of Inferior leads Referred By: Joshua Rodrigues Electronically Signed By: AQUILES MYLES MD
--- NOTE | 2024-11-02 03:15 | PM.EVENT ---
Event Note Date of Service: 11/02/24 Event Note: rapid response called for hypotension. pt was complaining of chest pain again, same as previous recent event. he was recieving nitroglycerin and has gotten 2 doses PRN for chest pain. chest pain first began around 0230. first dose of nitro about 20 minutes agao, BP now 92/59. his pain is centralized, tender to touch and pleuritic. currently 8/10 pain. nitro is not helping the pain. PE: pain reproducible on exam. tenderness near mid sternal border. no diaphoresis. pt able to talk in full sentences A/P: costochondritis- chest pain stat EKG - no changes from previous, compared. stat troponin adn d dimer tylenol lidocaine patch cannot have ibuprofen due to eliquis pt seen and examined by Dr Grove, assessment and plan discussed Time Spent With Patient Time: Total time managing care of this patient today ____ minutes.
--- NOTE | 2024-11-02 03:15 | PC.NURSE ---
rapid response called-patient with c/o 8/10 chest pain. no diaphoresis, no reports of radiating discomfort, no nausea or vomiting, color is pink. rapid response called after 2nd nitro given with reports of continued 8/10 pain and VS at that time being 90/56, 69, 93% (see VS documentation) ativan given prior to rapid response. once evaluated tylenol administered. patient has been calm, is responding to verbal prompts.
--- NOTE | 2024-11-02 03:25 | PC.NURSE ---
patient is currently sleeping. respirations even and unlabored.
--- NOTE | 2024-11-02 03:41 | PC.NURSE ---
labs-had to be woken for labs. continues to verbalize chest pain 12/12.
[2024-11-02 03:56] LABS: D Dimer High Sensitivity < 150 NG/ML
[2024-11-02 04:09] LABS: Troponin-I High Sensitivity 15.3 ng/L (<3.5-35.0)
[2024-11-02] MEDS: Lidocaine 4 % Patch ADH..PATCH 1 PATCH TRANSDERMA (04:20)
--- NOTE | 2024-11-02 06:55 | PC.NURSE ---
patient is OOB. no c/o chest discomfort
[2024-11-02] MEDS: Calcium + Vitamin D 250 MG TABLET PO ×2 (08:48→21:03)
--- NOTE | 2024-11-02 10:15 | PM.EVENT ---
Event Note Date of Service: 11/02/24 Event Note: Rapid response called for hypotension. Patient complained of chest pain last evening, Rapid response called for Hypotension. He received nitroglycerin 2 doses. Nitro reportedly did not relieve the pain. Patient reported chest pain D-Dimer, EKG unchanged and Troponins negative.Patient with history of postural syncope and hypotension. Per [facility] records, Midodrine will be scheduled until BP stabilizes or follow up with cardiology. TEDS stockings to be worn. Time Spent With Patient Time: Total time managing care of this patient today ____ minutes.
[2024-11-02] MEDS: Metoprolol Succinate ER 12.5 MG HALFTAB.ER.24H PO (20:58)
--- NOTE | 2024-11-02 22:06 | P.PNPSI_ITS ---
Subjective Subjective Date of Service: 11/01/24 Reason For Visit: depression si Interim History: Patient with periods of severe anxiety and despair other times superficially bright. 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 Diagnostics Vital Signs (24Hr): Vital Signs - 24 hr 11/02/24 02:30 11/02/24 02:33 11/02/24 02:40 Temperature Pulse Rate 62 62 72 Respiratory Rate 16 16 Blood Pressure 99/60 99/60 81/53 L Pulse Oximetry 91 L 91 L Oxygen Delivery Method Room Air Room Air 11/02/24 02:42 11/02/24 02:50 11/02/24 03:00 Temperature Pulse Rate 72 69 69 Respiratory Rate 16 Blood Pressure 81/53 L 90/56 L 85/57 L Pulse Oximetry 93 90 L Oxygen Delivery Method Room Air Room Air 11/02/24 03:14 11/02/24 04:21 11/02/24 08:25 Temperature 98.2 F Pulse Rate 92 59 67 Respiratory Rate 16 14 20 Blood Pressure 92/59 L 100/65 109/55 L Pulse Oximetry 94 92 97 Oxygen Delivery Method Room Air Room Air Room Air 11/02/24 14:32 11/02/24 20:58 11/02/24 21:01 Temperature Pulse Rate 88 71 Respiratory Rate Blood Pressure 96/65 108/62 108/62 Pulse Oximetry Oxygen Delivery Method BMI result Body Mass Index 24.4 Labs 10/31/24 14:38 10/31/24 14:38 Labs: Laboratory Results - last 48 hr 11/02/24 03:37 D-Dimer High Sensitivty < 150 Troponin I High Sens 15.3 Medications Medications Current Medications Acetaminophen (Acetaminophen 325 Mg Tablet) 650 mg PO Q6H PRN PRN Reason: Headache/Pain, Scale 1-10 Last Admin: 11/02/24 03:05 Dose: 650 mg Al Hydroxide/Mg Hydroxide (Magnesium Hydrox/Alum Hydrox 30 Ml Oral.Susp) 30 ml PO Q6H PRN PRN Reason: Heartburn/Nausea Apixaban (Apixaban 5 Mg Tablet) 5 mg PO BID [facility] Last Admin: 11/02/24 21:04 Dose: 5 mg Ascorbic Acid (Ascorbic Acid 500 Mg Tablet) 500 mg PO DAILY [facility] Last Admin: 11/02/24 08:48 Dose: 500 mg Atorvastatin Calcium (Atorvastatin Calcium 80 Mg Tablet) 80 mg PO DAILY [facility] Last Admin: 11/02/24 08:50 Dose: 80 mg Calcium Carbonate/Cholecalciferol (Calcium + Vitamin D 250 Mg Tablet) 250 mg PO BID [facility] Last Admin: 11/02/24 21:03 Dose: 250 mg Clopidogrel Bisulfate (Clopidogrel Bisulfate 75 Mg Tablet) 75 mg PO BEDTIME [facility] Last Admin: 11/02/24 21:04 Dose: 75 mg Dapsone (Dapsone 25 Mg Tablet) 100 mg PO DAILY [facility] Last Admin: 11/02/24 09:05 Dose: 100 mg Divalproex Sodium (Divalproex Sodium 500 Mg Tablet.Dr) 500 mg PO BID [facility] Last Admin: 11/02/24 21:01 Dose: 500 mg Dofetilide (Dofetilide 125 Mcg Capsule) 125 mcg PO DAILY@1500 [facility] Last Admin: 11/02/24 14:33 Dose: 125 mcg Ezetimibe (Ezetimibe 10 Mg Tablet) 10 mg PO BEDTIME [facility] Last Admin: 11/02/24 21:01 Dose: 10 mg Empagliflozin (Empagliflozin 10 Mg Tablet) 10 mg PO DAILY [facility] Last Admin: 11/02/24 08:51 Dose: 10 mg Isosorbide Mononitrate (Isosorbide Mononitrate 30 Mg Tab.Er.24h) 30 mg PO DAILY [facility]; Protocol Last Admin: 11/02/24 08:50 Dose: 30 mg Levothyroxine Sodium (Levothyroxine Sodium 50 Mcg Tablet) 50 mcg PO SuTuThSa@0600 [facility] Last Admin: 11/02/24 05:47 Dose: 50 mcg Levothyroxine Sodium (Levothyroxine Sodium 200 Mcg Tablet) 200 mcg PO DAILY@0600 [facility] Last Admin: 11/02/24 05:47 Dose: 200 mcg Lidocaine (Lidocaine 4 % Patch Adh..Patch) 1 patch TRANSDERMA DAILY [facility]; Protocol Last Admin: 11/02/24 04:20 Dose: 1 patch Lorazepam (Lorazepam 0.5 Mg Tablet) 0.5 mg PO Q4H PRN PRN Reason: Anxiety Last Admin: 11/02/24 09:12 Dose: 0.5 mg Lorazepam (Lorazepam 0.5 Mg Tablet) 0.5 mg PO TID [facility] Last Admin: 11/02/24 21:02 Dose: 0.5 mg Magnesium Hydroxide (Milk Of Magnesia 30 Ml Oral.Susp) 30 ml PO DAILY PRN PRN Reason: Constipation Metoprolol Succinate (Metoprolol Succinate Er 12.5 Mg Halftab.Er.24h) 12.5 mg PO BEDTIME [facility]; Protocol Last Admin: 11/02/24 20:58 Dose: 12.5 mg Midodrine (Midodrine Hcl 10 Mg Tablet) 10 mg PO TID [facility] Last Admin: 11/02/24 21:01 Dose: 10 mg Mirtazapine (Mirtazapine 7.5 Mg Tablet) 3.75 mg PO BEDTIME [facility] Last Admin: 11/02/24 21:02 Dose: 3.75 mg Modafinil (Modafinil 100 Mg Tablet) 100 mg PO DAILY [facility] Last Admin: 11/02/24 08:47 Dose: 100 mg Nitroglycerin (Nitroglycerin 0.4 Mg Tab.Subl) 0.4 mg SUBLINGUAL Q5MX3 PRN PRN Reason: Chest Pain Last Admin: 11/02/24 02:42 Dose: 0.4 mg Pantoprazole Sodium (Pantoprazole Sodium 20 Mg Tablet.Dr) 40 mg PO DAILY [facility] Last Admin: 11/02/24 08:49 Dose: 40 mg Paroxetine HCl (Paroxetine Hcl 30 Mg Tablet) 30 mg PO DAILY [facility] Last Admin: 11/02/24 08:50 Dose: 30 mg Prednisone (Prednisone 20 Mg Tablet) 30 mg PO DAILY [facility]; Taper Stop: 11/20/24 08:59 Last Admin: 11/02/24 08:51 Dose: 30 mg Ranolazine (Ranolazine 500 Mg Tab.Er.12h) 500 mg PO BID [facility] Last Admin: 11/02/24 21:04 Dose: 500 mg Thiamine HCl (Thiamine Hcl 100 Mg Tablet) 100 mg PO DAILY [facility] Last Admin: 11/02/24 08:51 Dose: 100 mg Vitamin D (Cholecalciferol (Vitamin D3) 25 Mcg Tablet) 50 mcg PO DAILY [facility] Last Admin: 11/02/24 08:48 Dose: 50 mcg Allergies Allergies Allergy/AdvReac Type Severity Reaction Status Date / Time Penicillins (PENICILLINS) Allergy Intermediate ITCHY RASH Verified 10/28/24 15:57 Assessment & Plan Assessment & Plan (1) Depression with suicidal ideation: Status: Acute Code(s): F32.A - Depression, unspecified; R45.851 - Suicidal ideations (2) Suicidal ideations: Status: Acute Code(s): R45.851 - Suicidal ideations (3) CAD (coronary artery disease): Status: Acute Code(s): I25.10 - Atherosclerotic heart disease of [place] coronary artery without angina pectoris Plan Patient has been dealing with a number of stressors. 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 He has become increasingly despondent desperate with increasing chest pain that has been difficult to tell between ASHD versus panic Ativan 0.6 PRN anxiety seems unbalanced to be worth it at this time given patient's current anxiety mood instability. Might benefit if steroids could be decreased monitor response to Ativan p.r.n.. Consider addition of 7.5 mg p.o. Remeron q.h.s. p.r.n.. Patient does have conduction abnormalities in addition to ASHD which must be taken into account in addition to hypotension and being on midodrine would benefit from strategies to manage anxiety and pa which can be increasing anxiety martir 10/30 continue tx. 10/31 continue tx. 11/01/2024 Start scheduled lorazepam consider mirtazapine but does have conduction delay. See if prednisone can be decreased Reason for continued inpatient stay Substantial Risk for: inability to function, rapid decompensation and med/psych decompensation Time Spent With Patient Time: Total time managing care of this patient today ____ minutes.
--- NOTE | 2024-11-02 22:12 | P.PNPSI_ITS ---
Subjective Subjective Date of Service: 11/02/24 Reason For Visit: depression si Subjective Notes: Conditional Voluntary Interim History: Patient is somewhat more anxious and dysphoric. Feeling unstable erratic fearful. Periods of despair. 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 Vital Signs (24Hr): Vital Signs - 24 hr 11/02/24 02:30 11/02/24 02:33 11/02/24 02:40 Temperature Pulse Rate 62 62 72 Respiratory Rate 16 16 Blood Pressure 99/60 99/60 81/53 L Pulse Oximetry 91 L 91 L Oxygen Delivery Method Room Air Room Air 11/02/24 02:42 11/02/24 02:50 11/02/24 03:00 Temperature Pulse Rate 72 69 69 Respiratory Rate 16 Blood Pressure 81/53 L 90/56 L 85/57 L Pulse Oximetry 93 90 L Oxygen Delivery Method Room Air Room Air 11/02/24 03:14 11/02/24 04:21 11/02/24 08:25 Temperature 98.2 F Pulse Rate 92 59 67 Respiratory Rate 16 14 20 Blood Pressure 92/59 L 100/65 109/55 L Pulse Oximetry 94 92 97 Oxygen Delivery Method Room Air Room Air Room Air 11/02/24 14:32 11/02/24 20:00 11/02/24 20:58 Temperature 97.3 F Pulse Rate 88 71 71 Respiratory Rate 16 Blood Pressure 96/65 108/62 108/62 Pulse Oximetry 95 Oxygen Delivery Method Room Air 11/02/24 21:01 Temperature Pulse Rate Respiratory Rate Blood Pressure 108/62 Pulse Oximetry Oxygen Delivery Method BMI result Body Mass Index 24.4 Labs 10/31/24 14:38 10/31/24 14:38 Labs: Laboratory Results - last 48 hr 11/02/24 03:37 D-Dimer High Sensitivty < 150 Troponin I High Sens 15.3 Medications Medications Current Medications Acetaminophen (Acetaminophen 325 Mg Tablet) 650 mg PO Q6H PRN PRN Reason: Headache/Pain, Scale 1-10 Last Admin: 11/02/24 03:05 Dose: 650 mg Al Hydroxide/Mg Hydroxide (Magnesium Hydrox/Alum Hydrox 30 Ml Oral.Susp) 30 ml PO Q6H PRN PRN Reason: Heartburn/Nausea Apixaban (Apixaban 5 Mg Tablet) 5 mg PO BID [facility] Last Admin: 11/02/24 21:04 Dose: 5 mg Ascorbic Acid (Ascorbic Acid 500 Mg Tablet) 500 mg PO DAILY [facility] Last Admin: 11/02/24 08:48 Dose: 500 mg Atorvastatin Calcium (Atorvastatin Calcium 80 Mg Tablet) 80 mg PO DAILY [facility] Last Admin: 11/02/24 08:50 Dose: 80 mg Calcium Carbonate/Cholecalciferol (Calcium + Vitamin D 250 Mg Tablet) 250 mg PO BID [facility] Last Admin: 11/02/24 21:03 Dose: 250 mg Clopidogrel Bisulfate (Clopidogrel Bisulfate 75 Mg Tablet) 75 mg PO BEDTIME [facility] Last Admin: 11/02/24 21:04 Dose: 75 mg Dapsone (Dapsone 25 Mg Tablet) 100 mg PO DAILY [facility] Last Admin: 11/02/24 09:05 Dose: 100 mg Divalproex Sodium (Divalproex Sodium 500 Mg Tablet.Dr) 500 mg PO BID [facility] Last Admin: 11/02/24 21:01 Dose: 500 mg Dofetilide (Dofetilide 125 Mcg Capsule) 125 mcg PO DAILY@1500 [facility] Last Admin: 11/02/24 14:33 Dose: 125 mcg Ezetimibe (Ezetimibe 10 Mg Tablet) 10 mg PO BEDTIME [facility] Last Admin: 11/02/24 21:01 Dose: 10 mg Empagliflozin (Empagliflozin 10 Mg Tablet) 10 mg PO DAILY [facility] Last Admin: 11/02/24 08:51 Dose: 10 mg Isosorbide Mononitrate (Isosorbide Mononitrate 30 Mg Tab.Er.24h) 30 mg PO DAILY [facility]; Protocol Last Admin: 11/02/24 08:50 Dose: 30 mg Levothyroxine Sodium (Levothyroxine Sodium 50 Mcg Tablet) 50 mcg PO SuTuThSa@0600 [facility] Last Admin: 11/02/24 05:47 Dose: 50 mcg Levothyroxine Sodium (Levothyroxine Sodium 200 Mcg Tablet) 200 mcg PO DAILY@0600 [facility] Last Admin: 11/02/24 05:47 Dose: 200 mcg Lidocaine (Lidocaine 4 % Patch Adh..Patch) 1 patch TRANSDERMA DAILY [facility]; Protocol Last Admin: 11/02/24 04:20 Dose: 1 patch Lorazepam (Lorazepam 0.5 Mg Tablet) 0.5 mg PO Q4H PRN PRN Reason: Anxiety Last Admin: 11/02/24 09:12 Dose: 0.5 mg Lorazepam (Lorazepam 0.5 Mg Tablet) 0.5 mg PO TID [facility] Last Admin: 11/02/24 21:02 Dose: 0.5 mg Magnesium Hydroxide (Milk Of Magnesia 30 Ml Oral.Susp) 30 ml PO DAILY PRN PRN Reason: Constipation Metoprolol Succinate (Metoprolol Succinate Er 12.5 Mg Halftab.Er.24h) 12.5 mg PO BEDTIME [facility]; Protocol Last Admin: 11/02/24 20:58 Dose: 12.5 mg Midodrine (Midodrine Hcl 10 Mg Tablet) 10 mg PO TID [facility] Last Admin: 11/02/24 21:01 Dose: 10 mg Mirtazapine (Mirtazapine 7.5 Mg Tablet) 3.75 mg PO BEDTIME [facility] Last Admin: 11/02/24 21:02 Dose: 3.75 mg Modafinil (Modafinil 100 Mg Tablet) 100 mg PO DAILY [facility] Last Admin: 11/02/24 08:47 Dose: 100 mg Nitroglycerin (Nitroglycerin 0.4 Mg Tab.Subl) 0.4 mg SUBLINGUAL Q5MX3 PRN PRN Reason: Chest Pain Last Admin: 11/02/24 02:42 Dose: 0.4 mg Pantoprazole Sodium (Pantoprazole Sodium 20 Mg Tablet.Dr) 40 mg PO DAILY [facility] Last Admin: 11/02/24 08:49 Dose: 40 mg Paroxetine HCl (Paroxetine Hcl 30 Mg Tablet) 30 mg PO DAILY [facility] Last Admin: 11/02/24 08:50 Dose: 30 mg Prednisone (Prednisone 20 Mg Tablet) 30 mg PO DAILY [facility]; Taper Stop: 11/20/24 08:59 Last Admin: 11/02/24 08:51 Dose: 30 mg Ranolazine (Ranolazine 500 Mg Tab.Er.12h) 500 mg PO BID [facility] Last Admin: 11/02/24 21:04 Dose: 500 mg Thiamine HCl (Thiamine Hcl 100 Mg Tablet) 100 mg PO DAILY [facility] Last Admin: 11/02/24 08:51 Dose: 100 mg Vitamin D (Cholecalciferol (Vitamin D3) 25 Mcg Tablet) 50 mcg PO DAILY [facility] Last Admin: 11/02/24 08:48 Dose: 50 mcg Allergies Allergies Allergy/AdvReac Type Severity Reaction Status Date / Time Penicillins (PENICILLINS) Allergy Intermediate ITCHY RASH Verified 10/28/24 15:57 Assessment & Plan Assessment & Plan (1) Depression with suicidal ideation: Status: Acute Code(s): F32.A - Depression, unspecified; R45.851 - Suicidal ideations (2) Suicidal ideations: Status: Acute Code(s): R45.851 - Suicidal ideations (3) CAD (coronary artery disease): Status: Acute Code(s): I25.10 - Atherosclerotic heart disease of [place] coronary artery without angina pectoris Plan Patient has been dealing with a number of stressors. 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 He has become increasingly despondent desperate with increasing chest pain that has been difficult to tell between ASHD versus panic Ativan 0.6 PRN anxiety seems unbalanced to be worth it at this time given patient's current anxiety mood instability. Might benefit if steroids could be decreased monitor response to Ativan p.r.n.. Consider addition of 7.5 mg p.o. Remeron q.h.s. p.r.n.. Patient does have conduction abnormalities in addition to ASHD which must be taken into account in addition to hypotension and being on midodrine would benefit from strategies to manage anxiety and pa which can be increasing anxiety martir 10/30 continue tx. 10/31 continue tx. 11/01/2024 Start scheduled lorazepam consider mirtazapine but does have conduction delay. See if prednisone can be decreased 11/02/2024 Patient erratic depressed anxious fearful periods of irritability no clear response to scheduled lorazepam start mirtazapine low-dose 3.75 monitor EKG which does have history of conduction delay Reason for continued inpatient stay Substantial Risk for: harm to self, rapid decompensation and med/psych decompensation Time Spent With Patient Time: Total time managing care of this patient today ____ minutes.
[2024-11-03 08:50] VITALS: BP 126/63; PULSE 68; RESP 18; TEMP 36.3; O2SAT 96
[2024-11-03] MEDS: Lidocaine 4 % Patch ADH..PATCH 1 PATCH TRANSDERMA (08:52)
[2024-11-03] MEDS: Calcium + Vitamin D 250 MG TABLET PO ×2 (08:56→20:53)
--- NOTE | 2024-11-03 13:20 | P.PNPSI_ITS ---
Subjective Subjective Date of Service: 11/03/24 Reason For Visit: depression si Subjective Notes: Conditional Voluntary Interim History: Patient having significant anxiety and intermittent rumination. Superficially bright at times at other times quite ruminating. Call placed to [facility] was unable to reach his neurologist. He is on a prednisone taper had just been lowered to 30 mg. Patient has multifocal conduction delay Medication Compliance: Yes Mental Status Exam Mental Status Exam Patient Appearance: Well Grooomed Patient Orientation: Person and Place Level of Consciousness: Awake and Appropriate Patient Behavior: Appropriate Mood Description: Depressed Affect Description: Constricted, Depressed and Apprehensive Patient Cognition Impaired: No Ability to Follow Directions: Good Speech Pattern: Clear Memory Description: Bending Machine Set Up Operator Impaired and Episodic Impaired Depressive Symptoms: Hopelessness Judgement and Insight: Patient discouraged that time overwhelmed with anxiety difficulty with fear at times remembering that he had felt suicidal out other times not Intermittent hopelessness Diagnostics Vital Signs (24Hr): Vital Signs - 24 hr 11/02/24 14:32 11/02/24 20:00 11/02/24 20:58 Temperature 97.3 F Pulse Rate 88 71 71 Respiratory Rate 16 Blood Pressure 96/65 108/62 108/62 Pulse Oximetry 95 Oxygen Delivery Method Room Air 11/02/24 21:01 11/03/24 08:50 Temperature 97.3 F Pulse Rate 68 Respiratory Rate 18 Blood Pressure 108/62 126/63 Pulse Oximetry 96 Oxygen Delivery Method Room Air BMI result Body Mass Index 24.4 Labs 10/31/24 14:38 10/31/24 14:38 Labs: Laboratory Results - last 48 hr 11/02/24 03:37 D-Dimer High Sensitivty < 150 Troponin I High Sens 15.3 Medications Medications Current Medications Acetaminophen (Acetaminophen 325 Mg Tablet) 650 mg PO Q6H PRN PRN Reason: Headache/Pain, Scale 1-10 Last Admin: 11/02/24 03:05 Dose: 650 mg Al Hydroxide/Mg Hydroxide (Magnesium Hydrox/Alum Hydrox 30 Ml Oral.Susp) 30 ml PO Q6H PRN PRN Reason: Heartburn/Nausea Apixaban (Apixaban 5 Mg Tablet) 5 mg PO BID [facility] Last Admin: 11/03/24 08:57 Dose: 5 mg Ascorbic Acid (Ascorbic Acid 500 Mg Tablet) 500 mg PO DAILY [facility] Last Admin: 11/03/24 08:54 Dose: 500 mg Atorvastatin Calcium (Atorvastatin Calcium 80 Mg Tablet) 80 mg PO DAILY [facility] Last Admin: 11/03/24 08:56 Dose: 80 mg Calcium Carbonate/Cholecalciferol (Calcium + Vitamin D 250 Mg Tablet) 250 mg PO BID [facility] Last Admin: 11/03/24 08:56 Dose: 250 mg Clopidogrel Bisulfate (Clopidogrel Bisulfate 75 Mg Tablet) 75 mg PO BEDTIME [facility] Last Admin: 11/02/24 21:04 Dose: 75 mg Dapsone (Dapsone 25 Mg Tablet) 100 mg PO DAILY [facility] Last Admin: 11/03/24 08:55 Dose: 100 mg Divalproex Sodium (Divalproex Sodium 500 Mg Tablet.Dr) 500 mg PO BID [facility] Last Admin: 11/03/24 08:58 Dose: 500 mg Dofetilide (Dofetilide 125 Mcg Capsule) 125 mcg PO DAILY@1500 [facility] Last Admin: 11/02/24 14:33 Dose: 125 mcg Ezetimibe (Ezetimibe 10 Mg Tablet) 10 mg PO BEDTIME [facility] Last Admin: 11/02/24 21:01 Dose: 10 mg Empagliflozin (Empagliflozin 10 Mg Tablet) 10 mg PO DAILY [facility] Last Admin: 11/03/24 08:59 Dose: 10 mg Isosorbide Mononitrate (Isosorbide Mononitrate 30 Mg Tab.Er.24h) 30 mg PO DAILY [facility]; Protocol Last Admin: 11/03/24 08:59 Dose: 30 mg Levothyroxine Sodium (Levothyroxine Sodium 50 Mcg Tablet) 50 mcg PO SuTuThSa@0600 [facility] Last Admin: 11/02/24 05:47 Dose: 50 mcg Levothyroxine Sodium (Levothyroxine Sodium 200 Mcg Tablet) 200 mcg PO DAILY@0600 [facility] Last Admin: 11/03/24 06:27 Dose: 200 mcg Lidocaine (Lidocaine 4 % Patch Adh..Patch) 1 patch TRANSDERMA DAILY [facility]; Protocol Last Admin: 11/03/24 08:52 Dose: 1 patch Lorazepam (Lorazepam 0.5 Mg Tablet) 0.5 mg PO Q4H PRN PRN Reason: Anxiety Last Admin: 11/02/24 09:12 Dose: 0.5 mg Lorazepam (Lorazepam 0.5 Mg Tablet) 0.5 mg PO TID [facility] Last Admin: 11/03/24 08:55 Dose: 0.5 mg Magnesium Hydroxide (Milk Of Magnesia 30 Ml Oral.Susp) 30 ml PO DAILY PRN PRN Reason: Constipation Metoprolol Succinate (Metoprolol Succinate Er 12.5 Mg Halftab.Er.24h) 12.5 mg PO BEDTIME [facility]; Protocol Last Admin: 11/02/24 20:58 Dose: 12.5 mg Midodrine (Midodrine Hcl 10 Mg Tablet) 10 mg PO TID [facility] Last Admin: 11/03/24 08:59 Dose: Not Given Mirtazapine (Mirtazapine 7.5 Mg Tablet) 7.5 mg PO BEDTIME [facility] Modafinil (Modafinil 100 Mg Tablet) 100 mg PO DAILY [facility] Last Admin: 11/03/24 08:55 Dose: 100 mg Nitroglycerin (Nitroglycerin 0.4 Mg Tab.Subl) 0.4 mg SUBLINGUAL Q5MX3 PRN PRN Reason: Chest Pain Last Admin: 11/02/24 02:42 Dose: 0.4 mg Pantoprazole Sodium (Pantoprazole Sodium 20 Mg Tablet.Dr) 40 mg PO DAILY [facility] Last Admin: 11/03/24 08:57 Dose: 40 mg Paroxetine HCl (Paroxetine Hcl 30 Mg Tablet) 30 mg PO DAILY [facility] Last Admin: 11/03/24 08:58 Dose: 30 mg Prednisone (Prednisone 20 Mg Tablet) 30 mg PO DAILY [facility]; Taper Stop: 11/20/24 08:59 Last Admin: 11/03/24 09:00 Dose: 30 mg Ranolazine (Ranolazine 500 Mg Tab.Er.12h) 500 mg PO BID [facility] Last Admin: 11/03/24 08:58 Dose: 500 mg Thiamine HCl (Thiamine Hcl 100 Mg Tablet) 100 mg PO DAILY [facility] Last Admin: 11/03/24 08:58 Dose: 100 mg Vitamin D (Cholecalciferol (Vitamin D3) 25 Mcg Tablet) 50 mcg PO DAILY [facility] Last Admin: 11/03/24 08:54 Dose: 50 mcg Allergies Allergies Allergy/AdvReac Type Severity Reaction Status Date / Time Penicillins (PENICILLINS) Allergy Intermediate ITCHY RASH Verified 10/28/24 15:57 Assessment & Plan Assessment & Plan (1) Depression with suicidal ideation: Status: Acute Code(s): F32.A - Depression, unspecified; R45.851 - Suicidal ideations (2) Suicidal ideations: Status: Acute Code(s): R45.851 - Suicidal ideations (3) CAD (coronary artery disease): Status: Acute Code(s): I25.10 - Atherosclerotic heart disease of [place] coronary artery without angina pectoris Plan Patient has been dealing with a number of stressors. 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 He has become increasingly despondent desperate with increasing chest pain that has been difficult to tell between ASHD versus panic Ativan 0.6 PRN anxiety seems unbalanced to be worth it at this time given patient's current anxiety mood instability. Might benefit if steroids could be decreased monitor response to Ativan p.r.n.. Consider addition of 7.5 mg p.o. Remeron q.h.s. p.r.n.. Patient does have conduction abnormalities in addition to ASHD which must be taken into account in addition to hypotension and being on midodrine would benefit from strategies to manage anxiety and pa which can be increasing anxiety martir 10/30 continue tx. 10/31 continue tx. 11/01/2024 Start scheduled lorazepam consider mirtazapine but does have conduction delay. See if prednisone can be decreased 11/02/2024 Patient erratic depressed anxious fearful periods of irritability no clear response to scheduled lorazepam start mirtazapine low-dose 3.75 monitor EKG which does have history of conduction delay 11/03/2024 Patient's prednisone and modafinil might be contributing to periods of increased anxiety and panic. Difficult for the patient at times chest pressure can be panic versus cardiac. He is on Paxil 30 augmentation with mirtazapine 3.75 mg Spoke with patient's patient did have troponins 7 1 in the evening secondary to symptoms no current chest pain Recheck EKG tomorrow mirtazapine can affect conduction monitor effects hopefully will help with panic Patient educated on: medication risk/benefits Guardian/Caregiver educated on: medication risk/benefits and medical condition Informed Consent: further education needed Reason for continued inpatient stay Substantial Risk for: harm to self, inability to function and rapid decompensation Time Spent With Patient Time: Total time managing care of this patient today ____ minutes.
[2024-11-03 14:23] VITALS: BP 112/63; PULSE 81
[2024-11-03 16:46] LABS: Ammonia 24 umol/L (13-55)
--- NOTE | 2024-11-03 17:18 | HO.WOUND ---
Wound Consult: Initial 74yr old male admitted to [facility] on 10/28/24 20:45- to the Inpatient [facility] Unit - See progress notes and H&P for detailed history.? Wound consult placed for Skin tears.? Chart review completed topical recommendations made per protocol for Skin tears as follows. Bilateral Arms: Cleanse with normal saline, pat dry. ?Apply Xeroform secure with Abd pads or gauze and elastic netting. Change Daily. ?Do not apply tape to patient?s skin.? Avoid Adhesive application to skin - when necessary, apply skin prep prior.? Re-consult wound care Nurse for wound deterioration or wound changes.
[2024-11-03 20:00] VITALS: BP 96/63; PULSE 69; RESP 18; TEMP 36.4; O2SAT 97
[2024-11-03] MEDS: Metoprolol Succinate ER 12.5 MG HALFTAB.ER.24H PO (20:53)
[2024-11-04 08:00] VITALS: BP 119/60; PULSE 73; TEMP 36.5; O2SAT 96
--- NOTE | 2024-11-04 08:00 | ECG_ITS ---
Test Reason : on mitrtazapine Blood Pressure : */* mmHG Vent. Rate : 65 BPM Atrial Rate : 65 BPM P-R Int : 152 ms QRS Dur : 156 ms QT Int : 444 ms P-R-T Axes : 76 -54 129 degrees QTcB Int : 461 ms Normal sinus rhythm Right bundle branch block Left anterior fascicular block Bifascicular block Left ventricular hypertrophy with repolarization abnormality ( R in aVL ) Inferior infarct (cited on or before 31-Jul-2022) Anterolateral infarct (cited on or before 31-Jul-2022) Abnormal ECG When compared with ECG of 02-Nov-2024 02:54, T wave inversion more evident in Lateral leads Referred By: Joshua Rodrigues Electronically Signed By: AQUILES MYLES MD
[2024-11-04 08:57] VITALS: BP 119/60
[2024-11-04] MEDS: Calcium + Vitamin D 250 MG TABLET PO ×2 (08:59→20:15)
[2024-11-04] MEDS: Lidocaine 4 % Patch ADH..PATCH 1 PATCH TRANSDERMA (09:01)
[2024-11-04 14:52] VITALS: BP 108/63
--- NOTE | 2024-11-04 16:18 | HO.PSYCHPN ---
Subjective Subjective Date of Service: 11/04/24 Reason For Visit: depression si Subjective Notes: Conditional Voluntary Interim History: Was unfortunately unable to contact Dr caballero called [facility] re autoimmune encephalitis . Patient continues somewhat dysphoric anxious intermittently ruminating at other times with structured time can be quite bright significant memory impairment. Patient maintain on 3.75 mg of mirtazapine given its potential effects on conduction. EKG shows some T-wave changes Medication Compliance: Yes Mental Status Exam Mental Status Exam Patient Appearance: Well Grooomed Patient Orientation: Person, Place and Situation Level of Consciousness: Awake and Appropriate Patient Behavior: Appropriate Mood Description: Relaxed, Depressed and Apprehensive Affect Description: Happy, Appropriate, Labile and Apprehensive Patient Cognition Impaired: No Ability to Follow Directions: Good Speech Pattern: Clear Memory Description: Hospitality Manager Impaired and Episodic Impaired Thought Content: positive for Poverty of Content, negative for Suicidal Ideation or negative for Homicidal Ideation Judgement and Insight: Patient denies active SI date that he gets hopeless helpless being a burden on his family at times Diagnostics Vital Signs (24Hr): Vital Signs - 24 hr 11/03/24 20:00 11/04/24 08:00 11/04/24 08:57 Temperature 97.5 F 97.7 F Pulse Rate 69 73 Respiratory Rate 18 Blood Pressure 96/63 119/60 119/60 Pulse Oximetry 97 96 Oxygen Delivery Method Room Air 11/04/24 14:52 Temperature Pulse Rate Respiratory Rate Blood Pressure 108/63 Pulse Oximetry Oxygen Delivery Method BMI result Body Mass Index 24.4 Labs 10/31/24 14:38 10/31/24 14:38 Labs: Laboratory Results - last 48 hr 11/03/24 11/04/24 16:29 07:17 Ammonia 24 Valproic Acid 35.4 L Medications Medications Current Medications Acetaminophen (Acetaminophen 325 Mg Tablet) 650 mg PO Q6H PRN PRN Reason: Headache/Pain, Scale 1-10 Last Admin: 11/02/24 03:05 Dose: 650 mg Al Hydroxide/Mg Hydroxide (Magnesium Hydrox/Alum Hydrox 30 Ml Oral.Susp) 30 ml PO Q6H PRN PRN Reason: Heartburn/Nausea Apixaban (Apixaban 5 Mg Tablet) 5 mg PO BID [facility] Last Admin: 11/04/24 09:00 Dose: 5 mg Ascorbic Acid (Ascorbic Acid 500 Mg Tablet) 500 mg PO DAILY [facility] Last Admin: 11/04/24 08:58 Dose: 500 mg Atorvastatin Calcium (Atorvastatin Calcium 80 Mg Tablet) 80 mg PO DAILY [facility] Last Admin: 11/04/24 08:58 Dose: 80 mg Calcium Carbonate/Cholecalciferol (Calcium + Vitamin D 250 Mg Tablet) 250 mg PO BID [facility] Last Admin: 11/04/24 08:59 Dose: 250 mg Clopidogrel Bisulfate (Clopidogrel Bisulfate 75 Mg Tablet) 75 mg PO BEDTIME [facility] Last Admin: 11/03/24 20:53 Dose: 75 mg Dapsone (Dapsone 25 Mg Tablet) 100 mg PO DAILY [facility] Last Admin: 11/04/24 09:14 Dose: 100 mg Divalproex Sodium (Divalproex Sodium 500 Mg Tablet.Dr) 500 mg PO BID [facility] Last Admin: 11/04/24 08:59 Dose: 500 mg Dofetilide (Dofetilide 125 Mcg Capsule) 125 mcg PO DAILY@1500 [facility] Last Admin: 11/04/24 14:52 Dose: 125 mcg Ezetimibe (Ezetimibe 10 Mg Tablet) 10 mg PO BEDTIME [facility] Last Admin: 11/03/24 20:52 Dose: 10 mg Empagliflozin (Empagliflozin 10 Mg Tablet) 10 mg PO DAILY [facility] Last Admin: 11/04/24 09:00 Dose: 10 mg Isosorbide Mononitrate (Isosorbide Mononitrate 30 Mg Tab.Er.24h) 30 mg PO DAILY [facility]; Protocol Last Admin: 11/04/24 08:59 Dose: 30 mg Levothyroxine Sodium (Levothyroxine Sodium 50 Mcg Tablet) 50 mcg PO SuTuThSa@0600 [facility] Last Admin: 11/04/24 05:42 Dose: 50 mcg Levothyroxine Sodium (Levothyroxine Sodium 200 Mcg Tablet) 200 mcg PO DAILY@0600 [facility] Last Admin: 11/04/24 05:42 Dose: 200 mcg Lidocaine (Lidocaine 4 % Patch Adh..Patch) 1 patch TRANSDERMA DAILY [facility]; Protocol Last Admin: 11/04/24 09:01 Dose: 1 patch Lorazepam (Lorazepam 0.5 Mg Tablet) 0.5 mg PO Q4H PRN PRN Reason: Anxiety Last Admin: 11/02/24 09:12 Dose: 0.5 mg Lorazepam (Lorazepam 0.5 Mg Tablet) 0.5 mg PO TID [facility] Last Admin: 11/04/24 14:53 Dose: 0.5 mg Magnesium Hydroxide (Milk Of Magnesia 30 Ml Oral.Susp) 30 ml PO DAILY PRN PRN Reason: Constipation Metoprolol Succinate (Metoprolol Succinate Er 12.5 Mg Halftab.Er.24h) 12.5 mg PO BEDTIME [facility]; Protocol Last Admin: 11/03/24 20:53 Dose: 12.5 mg Midodrine (Midodrine Hcl 10 Mg Tablet) 10 mg PO TID [facility] Last Admin: 11/04/24 14:52 Dose: 10 mg Mirtazapine (Mirtazapine 7.5 Mg Tablet) 3.75 mg PO BEDTIME [facility] Last Admin: 11/03/24 20:53 Dose: 3.75 mg Modafinil (Modafinil 100 Mg Tablet) 100 mg PO DAILY [facility] Last Admin: 11/04/24 08:58 Dose: 100 mg Nitroglycerin (Nitroglycerin 0.4 Mg Tab.Subl) 0.4 mg SUBLINGUAL Q5MX3 PRN PRN Reason: Chest Pain Last Admin: 11/02/24 02:42 Dose: 0.4 mg Pantoprazole Sodium (Pantoprazole Sodium 20 Mg Tablet.Dr) 40 mg PO DAILY [facility] Last Admin: 11/04/24 08:56 Dose: 40 mg Paroxetine HCl (Paroxetine Hcl 30 Mg Tablet) 30 mg PO DAILY [facility] Last Admin: 11/04/24 09:00 Dose: 30 mg Prednisone (Prednisone 20 Mg Tablet) 30 mg PO DAILY [facility]; Taper Stop: 11/20/24 08:59 Last Admin: 11/04/24 08:58 Dose: 30 mg Ranolazine (Ranolazine 500 Mg Tab.Er.12h) 500 mg PO BID [facility] Last Admin: 11/04/24 09:00 Dose: 500 mg Thiamine HCl (Thiamine Hcl 100 Mg Tablet) 100 mg PO DAILY [facility] Last Admin: 11/04/24 08:58 Dose: 100 mg Vitamin D (Cholecalciferol (Vitamin D3) 25 Mcg Tablet) 50 mcg PO DAILY [facility] Last Admin: 11/04/24 08:57 Dose: 50 mcg Allergies Allergies Allergy/AdvReac Type Severity Reaction Status Date / Time Penicillins (PENICILLINS) Allergy Intermediate ITCHY RASH Verified 10/28/24 15:57 Assessment & Plan Assessment & Plan (1) Depression with suicidal ideation: Status: Acute Code(s): F32.A - Depression, unspecified; R45.851 - Suicidal ideations (2) Suicidal ideations: Status: Acute Code(s): R45.851 - Suicidal ideations (3) CAD (coronary artery disease): Status: Acute Code(s): I25.10 - Atherosclerotic heart disease of [place] coronary artery without angina pectoris Plan Patient has been dealing with a number of stressors. 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 He has become increasingly despondent desperate with increasing chest pain that has been difficult to tell between ASHD versus panic Ativan 0.6 PRN anxiety seems unbalanced to be worth it at this time given patient's current anxiety mood instability. Might benefit if steroids could be decreased monitor response to Ativan p.r.n.. Consider addition of 7.5 mg p.o. Remeron q.h.s. p.r.n.. Patient does have conduction abnormalities in addition to ASHD which must be taken into account in addition to hypotension and being on midodrine would benefit from strategies to manage anxiety and pa which can be increasing anxiety martir 10/30 continue tx. 10/31 continue tx. 11/01/2024 Start scheduled lorazepam consider mirtazapine but does have conduction delay. See if prednisone can be decreased 11/02/2024 Patient erratic depressed anxious fearful periods of irritability no clear response to scheduled lorazepam start mirtazapine low-dose 3.75 monitor EKG which does have history of conduction delay 11/04/2024 Call placed to autoimmune Neurology unable to reach. Patient has significant working attention short-term memory and long-term memory impairment. Difficult taking in strategies for dealing with anxiety and intermittent chest discomfort which has made him at times quite fearful. Patient did have recent coronary angiogram. He is on Depakote for seizure disorder status post autoimmune encephalitis consideration could be given to increase Depakote which may also be helpful for anxiety. Consideration could be given to increasing mirtazapine would monitor response carefully including conduction Unclear why patient has not had a trial of cholinesterase inhibitor question related to his cardiac conduction issues versus alternative such as Namenda Patient's condition labile at times happy and engaged in times fearful overwhelmed and anxious. Continue lorazepam scheduled Reason for continued inpatient stay Substantial Risk for: harm to self and rapid decompensation Time Spent With Patient Time: Total time managing care of this patient today ____ minutes.
[2024-11-04 20:00] VITALS: BP 120/67; PULSE 69; TEMP 36.3; O2SAT 92
[2024-11-04 20:16] VITALS: BP 93/65
[2024-11-04 20:17] VITALS: BP 93/65; PULSE 87
[2024-11-05 08:00] VITALS: BP 125/69; PULSE 67; RESP 16; TEMP 36.6; O2SAT 97
[2024-11-05] MEDS: Calcium + Vitamin D 250 MG TABLET PO ×2 (08:35→20:49)
[2024-11-05 08:46] VITALS: BP 125/69
[2024-11-05] MEDS: Lidocaine 4 % Patch ADH..PATCH 1 PATCH TRANSDERMA (10:05)
[2024-11-05 14:47] VITALS: BP 115/66
--- NOTE | 2024-11-05 15:38 | PC.NURSE ---
At 3:15P He told the [facility] that he was having suicidal thoughts. I spoke with him and he expressed the same we talked about coping skills and utilizing them. He didn't realize what he actualy had for skills but he also said that family makes him feel guilty for using his coping skills.
--- NOTE | 2024-11-05 17:35 | PC.NURSE ---
right after med given he was out in the milieu to eat his dinner then he went back in his room and is resting comfortably
[2024-11-05 20:00] VITALS: BP 111/61; PULSE 69; RESP 16; TEMP 36.5; O2SAT 96
[2024-11-05 20:48] VITALS: BP 111/61
[2024-11-05 20:55] VITALS: BP 111/61; PULSE 69
--- NOTE | 2024-11-05 21:29 | P.PNPSI_ITS ---
Subjective Subjective Date of Service: 11/05/24 Reason For Visit: depression si Interim History: feeling well, relaxed. mood improved. no questions or complaints. per staff, no issues. Mental Status Exam Mental Status Exam Patient Appearance: Well Grooomed Patient Orientation: Person and Place Level of Consciousness: Awake and Appropriate Patient Behavior: Appropriate Mood Description: Depressed Affect Description: Happy, Appropriate and Constricted Patient Cognition Impaired: No Ability to Follow Directions: Good Speech Pattern: Clear Memory Description: Relationship Associate Impaired and Episodic Impaired Diagnostics Vital Signs (24Hr): Vital Signs - 24 hr 11/05/24 08:00 11/05/24 08:46 11/05/24 14:47 Temperature 97.9 F Pulse Rate 67 Respiratory Rate 16 Blood Pressure 125/69 125/69 115/66 Pulse Oximetry 97 Oxygen Delivery Method Room Air 11/05/24 20:00 11/05/24 20:48 11/05/24 20:55 Temperature 97.7 F Pulse Rate 69 69 Respiratory Rate 16 Blood Pressure 111/61 111/61 111/61 Pulse Oximetry 96 Oxygen Delivery Method Room Air BMI result Body Mass Index 24.4 Labs 10/31/24 14:38 10/31/24 14:38 Labs: Laboratory Results - last 48 hr 11/04/24 07:17 Valproic Acid 35.4 L Medications Medications Current Medications Acetaminophen (Acetaminophen 325 Mg Tablet) 650 mg PO Q6H PRN PRN Reason: Headache/Pain, Scale 1-10 Last Admin: 11/02/24 03:05 Dose: 650 mg Al Hydroxide/Mg Hydroxide (Magnesium Hydrox/Alum Hydrox 30 Ml Oral.Susp) 30 ml PO Q6H PRN PRN Reason: Heartburn/Nausea Apixaban (Apixaban 5 Mg Tablet) 5 mg PO BID [facility] Last Admin: 11/05/24 20:49 Dose: 5 mg Ascorbic Acid (Ascorbic Acid 500 Mg Tablet) 500 mg PO DAILY [facility] Last Admin: 11/05/24 08:37 Dose: 500 mg Atorvastatin Calcium (Atorvastatin Calcium 80 Mg Tablet) 80 mg PO DAILY [facility] Last Admin: 11/05/24 08:37 Dose: 80 mg Calcium Carbonate/Cholecalciferol (Calcium + Vitamin D 250 Mg Tablet) 250 mg PO BID [facility] Last Admin: 11/05/24 20:49 Dose: 250 mg Clopidogrel Bisulfate (Clopidogrel Bisulfate 75 Mg Tablet) 75 mg PO BEDTIME [facility] Last Admin: 11/05/24 20:49 Dose: 75 mg Dapsone (Dapsone 25 Mg Tablet) 100 mg PO DAILY [facility] Last Admin: 11/05/24 08:34 Dose: 100 mg Divalproex Sodium (Divalproex Sodium 500 Mg Tablet.Dr) 500 mg PO BID [facility] Last Admin: 11/05/24 20:49 Dose: 500 mg Dofetilide (Dofetilide 125 Mcg Capsule) 125 mcg PO DAILY@1500 [facility] Last Admin: 11/05/24 14:48 Dose: 125 mcg Ezetimibe (Ezetimibe 10 Mg Tablet) 10 mg PO BEDTIME [facility] Last Admin: 11/05/24 20:49 Dose: 10 mg Empagliflozin (Empagliflozin 10 Mg Tablet) 10 mg PO DAILY [facility] Last Admin: 11/05/24 08:37 Dose: 10 mg Isosorbide Mononitrate (Isosorbide Mononitrate 30 Mg Tab.Er.24h) 30 mg PO DAILY [facility]; Protocol Last Admin: 11/05/24 08:36 Dose: 30 mg Levothyroxine Sodium (Levothyroxine Sodium 50 Mcg Tablet) 50 mcg PO SuTuThSa@0600 [facility] Last Admin: 11/04/24 05:42 Dose: 50 mcg Levothyroxine Sodium (Levothyroxine Sodium 200 Mcg Tablet) 200 mcg PO DAILY@0600 [facility] Last Admin: 11/05/24 05:58 Dose: 200 mcg Lidocaine (Lidocaine 4 % Patch Adh..Patch) 1 patch TRANSDERMA DAILY [facility]; Protocol Last Admin: 11/05/24 10:05 Dose: 1 patch Lorazepam (Lorazepam 0.5 Mg Tablet) 0.5 mg PO Q4H PRN PRN Reason: Anxiety Last Admin: 11/05/24 16:16 Dose: 0.5 mg Lorazepam (Lorazepam 0.5 Mg Tablet) 0.5 mg PO TID [facility] Last Admin: 11/05/24 20:50 Dose: 0.5 mg Magnesium Hydroxide (Milk Of Magnesia 30 Ml Oral.Susp) 30 ml PO DAILY PRN PRN Reason: Constipation Metoprolol Succinate (Metoprolol Succinate Er 12.5 Mg Halftab.Er.24h) 12.5 mg PO BEDTIME [facility]; Protocol Last Admin: 11/05/24 20:55 Dose: Not Given Midodrine (Midodrine Hcl 10 Mg Tablet) 10 mg PO TID [facility] Last Admin: 11/05/24 20:48 Dose: 10 mg Mirtazapine (Mirtazapine 7.5 Mg Tablet) 7.5 mg PO BEDTIME [facility] Last Admin: 11/05/24 20:48 Dose: 7.5 mg Modafinil (Modafinil 100 Mg Tablet) 100 mg PO DAILY [facility] Last Admin: 11/05/24 08:36 Dose: 100 mg Nitroglycerin (Nitroglycerin 0.4 Mg Tab.Subl) 0.4 mg SUBLINGUAL Q5MX3 PRN PRN Reason: Chest Pain Last Admin: 11/02/24 02:42 Dose: 0.4 mg Pantoprazole Sodium (Pantoprazole Sodium 20 Mg Tablet.Dr) 40 mg PO DAILY [facility] Last Admin: 11/05/24 08:37 Dose: 40 mg Paroxetine HCl (Paroxetine Hcl 30 Mg Tablet) 30 mg PO DAILY [facility] Last Admin: 11/05/24 08:37 Dose: 30 mg Prednisone (Prednisone 20 Mg Tablet) 30 mg PO DAILY [facility]; Taper Stop: 11/20/24 08:59 Last Admin: 11/05/24 08:34 Dose: 30 mg Ranolazine (Ranolazine 500 Mg Tab.Er.12h) 500 mg PO BID [facility] Last Admin: 11/05/24 20:49 Dose: 500 mg Thiamine HCl (Thiamine Hcl 100 Mg Tablet) 100 mg PO DAILY [facility] Last Admin: 11/05/24 08:37 Dose: 100 mg Vitamin D (Cholecalciferol (Vitamin D3) 25 Mcg Tablet) 50 mcg PO DAILY [facility] Last Admin: 11/05/24 08:36 Dose: 50 mcg Allergies Allergies Allergy/AdvReac Type Severity Reaction Status Date / Time Penicillins (PENICILLINS) Allergy Intermediate ITCHY RASH Verified 10/28/24 15:57 Assessment & Plan Assessment & Plan (1) Depression with suicidal ideation: Status: Acute Code(s): F32.A - Depression, unspecified; R45.851 - Suicidal ideations (2) Suicidal ideations: Status: Acute Code(s): R45.851 - Suicidal ideations (3) CAD (coronary artery disease): Status: Acute Code(s): I25.10 - Atherosclerotic heart disease of [place] coronary artery without angina pectoris Plan Patient has been dealing with a number of stressors. 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 He has become increasingly despondent desperate with increasing chest pain that has been difficult to tell between ASHD versus panic Ativan 0.6 PRN anxiety seems unbalanced to be worth it at this time given patient's current anxiety mood instability. Might benefit if steroids could be decreased monitor response to Ativan p.r.n.. Consider addition of 7.5 mg p.o. Remeron q.h.s. p.r.n.. Patient does have conduction abnormalities in addition to ASHD which must be taken into account in addition to hypotension and being on midodrine would benefit from strategies to manage anxiety and pa which can be increasing anxiety martir 10/30 continue tx. 10/31 continue tx. 11/01/2024 Start scheduled lorazepam consider mirtazapine but does have conduction delay. See if prednisone can be decreased 11/02/2024 Patient erratic depressed anxious fearful periods of irritability no clear response to scheduled lorazepam start mirtazapine low-dose 3.75 monitor EKG which does have history of conduction delay 11/05: feeling very well, realxed. mood greatly improved. reading a book in the milieu. continue current mgmt. Reason for continued inpatient stay Substantial Risk for: inability to function Time Spent With Patient Time: Total time managing care of this patient today ____ minutes.
[2024-11-06 08:25] VITALS: BP 113/57; PULSE 76; RESP 18; TEMP 36.3; O2SAT 98
[2024-11-06] MEDS: Calcium + Vitamin D 250 MG TABLET PO ×2 (09:03→20:32)
[2024-11-06] MEDS: Lidocaine 4 % Patch ADH..PATCH 1 PATCH TRANSDERMA (09:06)
--- NOTE | 2024-11-06 13:03 | P.PNPSI_ITS ---
Subjective Subjective Date of Service: 11/06/24 Reason For Visit: depression si Interim History: reading in his room. pleasant, full flexible affect, improved. reviewed admissions material with him as well as course of treatment in hospital. Mental Status Exam Mental Status Exam Patient Appearance: Well Grooomed Patient Orientation: Person and Place Level of Consciousness: Awake and Appropriate Patient Behavior: Appropriate Mood Description: Happy and Relaxed Affect Description: Happy, Appropriate and Constricted Patient Cognition Impaired: No Ability to Follow Directions: Good Speech Pattern: Clear Memory Description: Bus Operator Impaired and Episodic Impaired Diagnostics Vital Signs (24Hr): Vital Signs - 24 hr 11/05/24 14:47 11/05/24 20:00 11/05/24 20:48 Temperature 97.7 F Pulse Rate 69 Respiratory Rate 16 Blood Pressure 115/66 111/61 111/61 Pulse Oximetry 96 Oxygen Delivery Method Room Air 11/05/24 20:55 11/06/24 08:25 Temperature 97.3 F Pulse Rate 69 76 Respiratory Rate 18 Blood Pressure 111/61 113/57 L Pulse Oximetry 98 Oxygen Delivery Method Room Air BMI result Body Mass Index 24.4 Labs 10/31/24 14:38 10/31/24 14:38 Medications Medications Current Medications Acetaminophen (Acetaminophen 325 Mg Tablet) 650 mg PO Q6H PRN PRN Reason: Headache/Pain, Scale 1-10 Last Admin: 11/02/24 03:05 Dose: 650 mg Al Hydroxide/Mg Hydroxide (Magnesium Hydrox/Alum Hydrox 30 Ml Oral.Susp) 30 ml PO Q6H PRN PRN Reason: Heartburn/Nausea Apixaban (Apixaban 5 Mg Tablet) 5 mg PO BID [facility] Last Admin: 11/06/24 09:04 Dose: 5 mg Ascorbic Acid (Ascorbic Acid 500 Mg Tablet) 500 mg PO DAILY [facility] Last Admin: 11/06/24 09:04 Dose: 500 mg Atorvastatin Calcium (Atorvastatin Calcium 80 Mg Tablet) 80 mg PO DAILY [facility] Last Admin: 11/06/24 09:06 Dose: 80 mg Calcium Carbonate/Cholecalciferol (Calcium + Vitamin D 250 Mg Tablet) 250 mg PO BID [facility] Last Admin: 11/06/24 09:03 Dose: 250 mg Clopidogrel Bisulfate (Clopidogrel Bisulfate 75 Mg Tablet) 75 mg PO BEDTIME [facility] Last Admin: 11/05/24 20:49 Dose: 75 mg Dapsone (Dapsone 25 Mg Tablet) 100 mg PO DAILY [facility] Last Admin: 11/06/24 09:01 Dose: 100 mg Divalproex Sodium (Divalproex Sodium 500 Mg Tablet.Dr) 500 mg PO BID [facility] Last Admin: 11/06/24 09:05 Dose: 500 mg Dofetilide (Dofetilide 125 Mcg Capsule) 125 mcg PO DAILY@1500 [facility] Last Admin: 11/05/24 14:48 Dose: 125 mcg Ezetimibe (Ezetimibe 10 Mg Tablet) 10 mg PO BEDTIME [facility] Last Admin: 11/05/24 20:49 Dose: 10 mg Empagliflozin (Empagliflozin 10 Mg Tablet) 10 mg PO DAILY [facility] Last Admin: 11/06/24 09:06 Dose: 10 mg Isosorbide Mononitrate (Isosorbide Mononitrate 30 Mg Tab.Er.24h) 30 mg PO DAILY [facility]; Protocol Last Admin: 11/06/24 09:05 Dose: 30 mg Levothyroxine Sodium (Levothyroxine Sodium 50 Mcg Tablet) 50 mcg PO SuTuThSa@0600 [facility] Last Admin: 11/06/24 06:27 Dose: 50 mcg Levothyroxine Sodium (Levothyroxine Sodium 200 Mcg Tablet) 200 mcg PO DAILY@0600 [facility] Last Admin: 11/06/24 06:27 Dose: 200 mcg Lidocaine (Lidocaine 4 % Patch Adh..Patch) 1 patch TRANSDERMA DAILY [facility]; Protocol Last Admin: 11/06/24 09:06 Dose: 1 patch Lorazepam (Lorazepam 0.5 Mg Tablet) 0.5 mg PO Q4H PRN PRN Reason: Anxiety Last Admin: 11/05/24 16:16 Dose: 0.5 mg Lorazepam (Lorazepam 0.5 Mg Tablet) 0.5 mg PO TID [facility] Last Admin: 11/06/24 09:03 Dose: 0.5 mg Magnesium Hydroxide (Milk Of Magnesia 30 Ml Oral.Susp) 30 ml PO DAILY PRN PRN Reason: Constipation Metoprolol Succinate (Metoprolol Succinate Er 12.5 Mg Halftab.Er.24h) 12.5 mg PO BEDTIME [facility]; Protocol Last Admin: 11/05/24 20:55 Dose: Not Given Midodrine (Midodrine Hcl 10 Mg Tablet) 10 mg PO TID [facility] Last Admin: 11/06/24 09:05 Dose: 10 mg Mirtazapine (Mirtazapine 7.5 Mg Tablet) 7.5 mg PO BEDTIME [facility] Last Admin: 11/05/24 20:48 Dose: 7.5 mg Modafinil (Modafinil 100 Mg Tablet) 100 mg PO DAILY [facility] Last Admin: 11/06/24 09:04 Dose: 100 mg Nitroglycerin (Nitroglycerin 0.4 Mg Tab.Subl) 0.4 mg SUBLINGUAL Q5MX3 PRN PRN Reason: Chest Pain Last Admin: 11/02/24 02:42 Dose: 0.4 mg Pantoprazole Sodium (Pantoprazole Sodium 20 Mg Tablet.Dr) 40 mg PO DAILY [facility] Last Admin: 11/06/24 09:03 Dose: 40 mg Paroxetine HCl (Paroxetine Hcl 30 Mg Tablet) 30 mg PO DAILY [facility] Last Admin: 11/06/24 09:06 Dose: 30 mg Prednisone (Prednisone 20 Mg Tablet) 20 mg PO DAILY [facility]; Taper Stop: 11/20/24 08:59 Last Admin: 11/06/24 09:02 Dose: 20 mg Ranolazine (Ranolazine 500 Mg Tab.Er.12h) 500 mg PO BID [facility] Last Admin: 11/06/24 09:04 Dose: 500 mg Thiamine HCl (Thiamine Hcl 100 Mg Tablet) 100 mg PO DAILY [facility] Last Admin: 11/06/24 09:05 Dose: 100 mg Vitamin D (Cholecalciferol (Vitamin D3) 25 Mcg Tablet) 50 mcg PO DAILY [facility] Last Admin: 11/06/24 09:00 Dose: 50 mcg Allergies Allergies Allergy/AdvReac Type Severity Reaction Status Date / Time Penicillins (PENICILLINS) Allergy Intermediate ITCHY RASH Verified 10/28/24 15:57 Assessment & Plan Assessment & Plan (1) Depression with suicidal ideation: Status: Acute Code(s): F32.A - Depression, unspecified; R45.851 - Suicidal ideations (2) Suicidal ideations: Status: Acute Code(s): R45.851 - Suicidal ideations (3) CAD (coronary artery disease): Status: Acute Code(s): I25.10 - Atherosclerotic heart disease of [place] coronary artery without angina pectoris Plan Patient has been dealing with a number of stressors. 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 He has become increasingly despondent desperate with increasing chest pain that has been difficult to tell between ASHD versus panic Ativan 0.6 PRN anxiety seems unbalanced to be worth it at this time given patient's current anxiety mood instability. Might benefit if steroids could be decreased monitor response to Ativan p.r.n.. Consider addition of 7.5 mg p.o. Remeron q.h.s. p.r.n.. Patient does have conduction abnormalities in addition to ASHD which must be taken into account in addition to hypotension and being on midodrine would benefit from strategies to manage anxiety and pa which can be increasing anxiety martir 10/30 continue tx. 10/31 continue tx. 11/01/2024 Start scheduled lorazepam consider mirtazapine but does have conduction delay. See if prednisone can be decreased 11/02/2024 Patient erratic depressed anxious fearful periods of irritability no clear response to scheduled lorazepam start mirtazapine low-dose 3.75 monitor EKG which does have history of conduction delay 11/05: feeling very well, realxed. mood greatly improved. reading a book in the milieu. continue current mgmt. 11/06: as for yesterday. pt asks to review his entire course of hospitalization with MD, which is accommodated. no staff concerns. Reason for continued inpatient stay Substantial Risk for: inability to function and rapid decompensation Time Spent With Patient Time: Total time managing care of this patient today __25__ minutes.
[2024-11-06 14:05] VITALS: BP 111/68; PULSE 91
[2024-11-06] MEDS: Milk of Magnesia 30 ML ORAL.SUSP PO (14:14)
[2024-11-06 20:00] VITALS: BP 120/73; PULSE 79; RESP 15; TEMP 36.4; O2SAT 93
[2024-11-06 20:32] VITALS: BP 120/73; PULSE 79
[2024-11-06] MEDS: Metoprolol Succinate ER 12.5 MG HALFTAB.ER.24H PO (20:32)
[2024-11-07 08:00] VITALS: BP 118/68; PULSE 80; RESP 18; O2SAT 97
[2024-11-07] MEDS: Calcium + Vitamin D 250 MG TABLET PO ×2 (08:55→19:40)
[2024-11-07] MEDS: Lidocaine 4 % Patch ADH..PATCH 1 PATCH TRANSDERMA (08:57)
--- NOTE | 2024-11-07 09:47 | P.PNPSI_ITS ---
Subjective Subjective Date of Service: 11/07/24 Reason For Visit: depression si Interim History: in good spirits, no complaints or requests. per staff, got nitro SL for intermittent c/o CP. otherwise no change. Mental Status Exam Mental Status Exam Patient Appearance: Well Grooomed Patient Orientation: Person and Place Level of Consciousness: Awake and Appropriate Patient Behavior: Appropriate Mood Description: Happy and Relaxed Affect Description: Happy and Appropriate Patient Cognition Impaired: No Ability to Follow Directions: Good Speech Pattern: Clear Memory Description: Strategic Analyst Impaired and Episodic Impaired Diagnostics Vital Signs (24Hr): Vital Signs - 24 hr 11/06/24 14:05 11/06/24 20:00 11/06/24 20:32 Temperature 97.5 F Pulse Rate 91 79 Respiratory Rate 15 Blood Pressure 111/68 120/73 120/73 Pulse Oximetry 93 Oxygen Delivery Method Room Air 11/06/24 20:32 Temperature Pulse Rate 79 Respiratory Rate Blood Pressure 120/73 Pulse Oximetry Oxygen Delivery Method BMI result Body Mass Index 24.4 Labs 10/31/24 14:38 10/31/24 14:38 Medications Medications Current Medications Acetaminophen (Acetaminophen 325 Mg Tablet) 650 mg PO Q6H PRN PRN Reason: Headache/Pain, Scale 1-10 Last Admin: 11/02/24 03:05 Dose: 650 mg Al Hydroxide/Mg Hydroxide (Magnesium Hydrox/Alum Hydrox 30 Ml Oral.Susp) 30 ml PO Q6H PRN PRN Reason: Heartburn/Nausea Apixaban (Apixaban 5 Mg Tablet) 5 mg PO BID [facility]S [facility] Last Admin: 11/07/24 08:57 Dose: 5 mg Ascorbic Acid (Ascorbic Acid 500 Mg Tablet) 500 mg PO DAILY [facility] 234 B[facility]S [facility] Last Admin: 11/07/24 08:57 Dose: 500 mg Atorvastatin Calcium (Atorvastatin Calcium 80 Mg Tablet) 80 mg PO DAILY [facility] 234 B[facility]S [facility] Last Admin: 11/07/24 08:57 Dose: 80 mg Calcium Carbonate/Cholecalciferol (Calcium + Vitamin D 250 Mg Tablet) 250 mg PO BID [facility] 234 [facility]S [facility] Last Admin: 11/07/24 08:55 Dose: 250 mg Clopidogrel Bisulfate (Clopidogrel Bisulfate 75 Mg Tablet) 75 mg PO BEDTIME [facility] 234 [facility]S [facility] Last Admin: 11/06/24 20:32 Dose: 75 mg Dapsone (Dapsone 25 Mg Tablet) 100 mg PO DAILY [facility] 234 B[facility]S [facility] Last Admin: 11/07/24 08:54 Dose: 100 mg Divalproex Sodium (Divalproex Sodium 500 Mg Tablet.Dr) 500 mg PO BID [facility] 234 [facility]S [facility] Last Admin: 11/07/24 08:56 Dose: 500 mg Dofetilide (Dofetilide 125 Mcg Capsule) 125 mcg PO DAILY@1500 [facility] 234 B[facility]S [facility] Last Admin: 11/06/24 14:13 Dose: 125 mcg Ezetimibe (Ezetimibe 10 Mg Tablet) 10 mg PO BEDTIME [facility] 234 [facility] Last Admin: 11/06/24 20:32 Dose: 10 mg Empagliflozin (Empagliflozin 10 Mg Tablet) 10 mg PO DAILY [facility] 234 [facility]S [facility] Last Admin: 11/07/24 08:57 Dose: 10 mg Isosorbide Mononitrate (Isosorbide Mononitrate 30 Mg Tab.Er.24h) 30 mg PO DAILY [facility] 234 [facility]S [facility]; Protocol Last Admin: 11/07/24 08:56 Dose: 30 mg Levothyroxine Sodium (Levothyroxine Sodium 50 Mcg Tablet) 50 mcg PO SuTuThSa@0600 [facility] 234 B[facility]S [facility] Last Admin: 11/07/24 06:25 Dose: 50 mcg Levothyroxine Sodium (Levothyroxine Sodium 200 Mcg Tablet) 200 mcg PO DAILY@0600 [facility] 234 B[facility]S [facility] Last Admin: 11/07/24 06:25 Dose: 200 mcg Lidocaine (Lidocaine 4 % Patch Adh..Patch) 1 patch TRANSDERMA DAILY [facility] 234 B[facility]S [facility]; Protocol Last Admin: 11/07/24 08:57 Dose: 1 patch Lorazepam (Lorazepam 0.5 Mg Tablet) 0.5 mg PO Q4H PRN PRN Reason: Anxiety Last Admin: 11/06/24 17:34 Dose: 0.5 mg Lorazepam (Lorazepam 0.5 Mg Tablet) 0.5 mg PO TID [facility] 234 [facility]S [facility] Last Admin: 11/07/24 08:55 Dose: 0.5 mg Magnesium Hydroxide (Milk Of Magnesia 30 Ml Oral.Susp) 30 ml PO DAILY PRN PRN Reason: Constipation Last Admin: 11/06/24 14:14 Dose: 30 ml Metoprolol Succinate (Metoprolol Succinate Er 12.5 Mg Halftab.Er.24h) 12.5 mg PO BEDTIME [facility] 234 B[facility]S [facility]; Protocol Last Admin: 11/06/24 20:32 Dose: 12.5 mg Midodrine (Midodrine Hcl 10 Mg Tablet) 10 mg PO TID [facility] 234 B[facility]S [facility] Last Admin: 11/07/24 08:57 Dose: 10 mg Mirtazapine (Mirtazapine 7.5 Mg Tablet) 7.5 mg PO BEDTIME [facility] 234 B[facility]S [facility] Last Admin: 11/06/24 20:32 Dose: 7.5 mg Modafinil (Modafinil 100 Mg Tablet) 100 mg PO DAILY [facility] 234 B[facility]S [facility] Last Admin: 11/07/24 08:56 Dose: 100 mg Nitroglycerin (Nitroglycerin 0.4 Mg Tab.Subl) 0.4 mg SUBLINGUAL Q5MX3 PRN PRN Reason: Chest Pain Last Admin: 11/02/24 02:42 Dose: 0.4 mg Pantoprazole Sodium (Pantoprazole Sodium 20 Mg Tablet.Dr) 40 mg PO DAILY [facility] 234 BEDS [facility] Last Admin: 11/07/24 08:55 Dose: 40 mg Paroxetine HCl (Paroxetine Hcl 30 Mg Tablet) 30 mg PO DAILY [facility] 234 B[facility]S [facility] Last Admin: 11/07/24 08:55 Dose: 30 mg Prednisone (Prednisone 20 Mg Tablet) 20 mg PO DAILY [facility] 234 BEDS [facility]; Taper Stop: 11/20/24 08:59 Last Admin: 11/07/24 08:56 Dose: 20 mg Ranolazine (Ranolazine 500 Mg Tab.Er.12h) 500 mg PO BID [facility] 234 BEDS [facility] Last Admin: 11/07/24 08:55 Dose: 500 mg Thiamine HCl (Thiamine Hcl 100 Mg Tablet) 100 mg PO DAILY [facility] 234 BEDS [facility] Last Admin: 11/07/24 08:56 Dose: 100 mg Vitamin D (Cholecalciferol (Vitamin D3) 25 Mcg Tablet) 50 mcg PO DAILY [facility]CLUDE 234 BEDS AT [facility] Last Admin: 11/07/24 08:55 Dose: 50 mcg Allergies Allergies Allergy/AdvReac Type Severity Reaction Status Date / Time Penicillins (PENICILLINS) Allergy Intermediate ITCHY RASH Verified 10/28/24 15:57 Assessment & Plan Assessment & Plan (1) Depression with suicidal ideation: Status: Acute Code(s): F32.A - Depression, unspecified; R45.851 - Suicidal ideations (2) Suicidal ideations: Status: Acute Code(s): R45.851 - Suicidal ideations (3) CAD (coronary artery disease): Status: Acute Code(s): I25.10 - Atherosclerotic heart disease of [place] coronary artery without angina pectoris Plan Patient has been dealing with a number of stressors. 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 He has become increasingly despondent desperate with increasing chest pain that has been difficult to tell between ASHD versus panic Ativan 0.6 PRN anxiety seems unbalanced to be worth it at this time given patient's current anxiety mood instability. Might benefit if steroids could be decreased monitor response to Ativan p.r.n.. Consider addition of 7.5 mg p.o. Remeron q.h.s. p.r.n.. Patient does have conduction abnormalities in addition to ASHD which must be taken into account in addition to hypotension and being on midodrine would benefit from strategies to manage anxiety and pa which can be increasing anxiety martir 10/30 continue tx. 10/31 continue tx. 11/01/2024 Start scheduled lorazepam consider mirtazapine but does have conduction delay. See if prednisone can be decreased 11/02/2024 Patient erratic depressed anxious fearful periods of irritability no clear response to scheduled lorazepam start mirtazapine low-dose 3.75 monitor EKG which does have history of conduction delay 11/05: feeling very well, realxed. mood greatly improved. reading a book in the milieu. continue current mgmt. 11/06: as for yesterday. pt asks to review his entire course of hospitalization with MD, which is accommodated. no staff concerns. 11/07: feeling well. nitro SL PRN added for intermittent CP complaint. otherwise continue current mgmt. Reason for continued inpatient stay Substantial Risk for: inability to function and rapid decompensation Time Spent With Patient Time: Total time managing care of this patient today ____ minutes.
[2024-11-07 14:46] VITALS: BP 116/64
[2024-11-07 19:42] VITALS: BP 98/62
[2024-11-07 20:00] VITALS: BP 98/62; PULSE 72; RESP 18; TEMP 36.6; O2SAT 94
[2024-11-08] VITALS (7 sets, daily range): BP systolic 99–109; BP diastolic 58–67; PULSE 75–79; RESP 16–18; TEMP 36.1–36.6; O2SAT 95–96
[2024-11-08] MEDS: Calcium + Vitamin D 250 MG TABLET PO ×2 (08:46→20:59)
[2024-11-08] MEDS: Lidocaine 4 % Patch ADH..PATCH 1 PATCH TRANSDERMA (08:50)
--- NOTE | 2024-11-08 11:33 | HO.PSYCHPN ---
Subjective Subjective Date of Service: 11/08/24 Reason For Visit: depression si Interim History: calm, cooperative, pleasant. reports mood continues to do well, spending time reading his tome. informed of upcoming family meeting to discuss next steps. per staff, dep/anx 5. taking meds. visit from . no issues. confused. slept 5 hours. no behavioral concerns. Mental Status Exam Mental Status Exam Patient Appearance: Well Grooomed Patient Orientation: Person and Place Level of Consciousness: Awake and Appropriate Patient Behavior: Appropriate Mood Description: Happy and Relaxed Affect Description: Happy and Appropriate Patient Cognition Impaired: No Ability to Follow Directions: Good Speech Pattern: Clear Memory Description: Usp Impaired and Episodic Impaired Diagnostics Vital Signs (24Hr): Vital Signs - 24 hr 11/07/24 14:46 11/07/24 19:42 11/07/24 20:00 Temperature 97.9 F Pulse Rate 72 Respiratory Rate 18 Blood Pressure 116/64 98/62 98/62 Pulse Oximetry 94 Oxygen Delivery Method Room Air 11/08/24 08:00 11/08/24 08:52 11/08/24 08:52 Temperature 97.9 F Pulse Rate 76 Respiratory Rate 18 Blood Pressure 109/67 109/67 109/67 Pulse Oximetry 96 Oxygen Delivery Method Room Air BMI result Body Mass Index 24.4 Labs 10/31/24 14:38 10/31/24 14:38 Medications Medications Current Medications Acetaminophen (Acetaminophen 325 Mg Tablet) 650 mg PO Q6H PRN PRN Reason: Headache/Pain, Scale 1-10 Last Admin: 11/02/24 03:05 Dose: 650 mg Al Hydroxide/Mg Hydroxide (Magnesium Hydrox/Alum Hydrox 30 Ml Oral.Susp) 30 ml PO Q6H PRN PRN Reason: Heartburn/Nausea Apixaban (Apixaban 5 Mg Tablet) 5 mg PO BID [facility] Last Admin: 11/08/24 08:44 Dose: 5 mg Ascorbic Acid (Ascorbic Acid 500 Mg Tablet) 500 mg PO DAILY [facility] Last Admin: 11/08/24 08:45 Dose: 500 mg Atorvastatin Calcium (Atorvastatin Calcium 80 Mg Tablet) 80 mg PO DAILY [facility] Last Admin: 11/08/24 08:45 Dose: 80 mg Calcium Carbonate/Cholecalciferol (Calcium + Vitamin D 250 Mg Tablet) 250 mg PO BID [facility] Last Admin: 11/08/24 08:46 Dose: 250 mg Clopidogrel Bisulfate (Clopidogrel Bisulfate 75 Mg Tablet) 75 mg PO BEDTIME [facility] Last Admin: 11/07/24 19:39 Dose: 75 mg Dapsone (Dapsone 25 Mg Tablet) 100 mg PO DAILY [facility] Last Admin: 11/08/24 08:41 Dose: 100 mg Divalproex Sodium (Divalproex Sodium 500 Mg Tablet.Dr) 500 mg PO BID [facility] Last Admin: 11/08/24 08:44 Dose: 500 mg Dofetilide (Dofetilide 125 Mcg Capsule) 125 mcg PO DAILY@1500 [facility] Last Admin: 11/07/24 14:44 Dose: 125 mcg Ezetimibe (Ezetimibe 10 Mg Tablet) 10 mg PO BEDTIME [facility] Last Admin: 11/07/24 19:39 Dose: 10 mg Empagliflozin (Empagliflozin 10 Mg Tablet) 10 mg PO DAILY [facility] Last Admin: 11/08/24 08:42 Dose: 10 mg Isosorbide Mononitrate (Isosorbide Mononitrate 30 Mg Tab.Er.24h) 30 mg PO DAILY [facility]; Protocol Last Admin: 11/08/24 08:52 Dose: 30 mg Levothyroxine Sodium (Levothyroxine Sodium 50 Mcg Tablet) 50 mcg PO SuTuThSa@0600 [facility] Last Admin: 11/07/24 06:25 Dose: 50 mcg Levothyroxine Sodium (Levothyroxine Sodium 200 Mcg Tablet) 200 mcg PO DAILY@0600 [facility] Last Admin: 11/08/24 05:04 Dose: 200 mcg Lidocaine (Lidocaine 4 % Patch Adh..Patch) 1 patch TRANSDERMA DAILY [facility]; Protocol Last Admin: 11/08/24 08:50 Dose: 1 patch Lorazepam (Lorazepam 0.5 Mg Tablet) 0.5 mg PO Q4H PRN PRN Reason: Anxiety Last Admin: 11/08/24 02:05 Dose: 0.5 mg Lorazepam (Lorazepam 0.5 Mg Tablet) 0.5 mg PO TID [facility] Last Admin: 11/08/24 08:45 Dose: 0.5 mg Magnesium Hydroxide (Milk Of Magnesia 30 Ml Oral.Susp) 30 ml PO DAILY PRN PRN Reason: Constipation Last Admin: 11/06/24 14:14 Dose: 30 ml Metoprolol Succinate (Metoprolol Succinate Er 12.5 Mg Halftab.Er.24h) 12.5 mg PO BEDTIME [facility]; Protocol Last Admin: 11/07/24 19:40 Dose: Not Given Midodrine (Midodrine Hcl 10 Mg Tablet) 10 mg PO TID [facility] Last Admin: 11/08/24 08:52 Dose: 10 mg Mirtazapine (Mirtazapine 7.5 Mg Tablet) 7.5 mg PO BEDTIME [facility] Last Admin: 11/07/24 19:39 Dose: 7.5 mg Modafinil (Modafinil 100 Mg Tablet) 100 mg PO DAILY [facility] Last Admin: 11/08/24 08:44 Dose: 100 mg Nitroglycerin (Nitroglycerin 0.4 Mg Tab.Subl) 0.4 mg SUBLINGUAL Q5MX3 PRN PRN Reason: Chest Pain Last Admin: 11/02/24 02:42 Dose: 0.4 mg Pantoprazole Sodium (Pantoprazole Sodium 20 Mg Tablet.Dr) 40 mg PO DAILY [facility] Last Admin: 11/08/24 08:45 Dose: 40 mg Paroxetine HCl (Paroxetine Hcl 30 Mg Tablet) 30 mg PO DAILY [facility] Last Admin: 11/08/24 08:44 Dose: 30 mg Prednisone (Prednisone 20 Mg Tablet) 20 mg PO DAILY [facility]; Taper Stop: 11/20/24 08:59 Last Admin: 11/08/24 08:45 Dose: 20 mg Ranolazine (Ranolazine 500 Mg Tab.Er.12h) 500 mg PO BID [facility] Last Admin: 11/08/24 08:45 Dose: 500 mg Thiamine HCl (Thiamine Hcl 100 Mg Tablet) 100 mg PO DAILY [facility] Last Admin: 11/08/24 08:45 Dose: 100 mg Vitamin D (Cholecalciferol (Vitamin D3) 25 Mcg Tablet) 50 mcg PO DAILY [facility] Last Admin: 11/08/24 08:44 Dose: 50 mcg Allergies Allergies Allergy/AdvReac Type Severity Reaction Status Date / Time Penicillins (PENICILLINS) Allergy Intermediate ITCHY RASH Verified 10/28/24 15:57 Assessment & Plan Assessment & Plan (1) Depression with suicidal ideation: Status: Acute Code(s): F32.A - Depression, unspecified; R45.851 - Suicidal ideations (2) Suicidal ideations: Status: Acute Code(s): R45.851 - Suicidal ideations (3) CAD (coronary artery disease): Status: Acute Code(s): I25.10 - Atherosclerotic heart disease of [place] coronary artery without angina pectoris Plan Patient has been dealing with a number of stressors. 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 He has become increasingly despondent desperate with increasing chest pain that has been difficult to tell between ASHD versus panic Ativan 0.6 PRN anxiety seems unbalanced to be worth it at this time given patient's current anxiety mood instability. Might benefit if steroids could be decreased monitor response to Ativan p.r.n.. Consider addition of 7.5 mg p.o. Remeron q.h.s. p.r.n.. Patient does have conduction abnormalities in addition to ASHD which must be taken into account in addition to hypotension and being on midodrine would benefit from strategies to manage anxiety and pa which can be increasing anxiety martir 10/30 continue tx. 10/31 continue tx. 11/01/2024 Start scheduled lorazepam consider mirtazapine but does have conduction delay. See if prednisone can be decreased 11/02/2024 Patient erratic depressed anxious fearful periods of irritability no clear response to scheduled lorazepam start mirtazapine low-dose 3.75 monitor EKG which does have history of conduction delay 11/05: feeling very well, realxed. mood greatly improved. reading a book in the milieu. continue current mgmt. 11/06: as for yesterday. pt asks to review his entire course of hospitalization with MD, which is accommodated. no staff concerns. 11/07: feeling well. nitro SL PRN added for intermittent CP complaint. otherwise continue current mgmt. 11/08: mood well, reading. aware of upcoming family mtg re dispo. continue current mgmt. Reason for continued inpatient stay Substantial Risk for: inability to function and rapid decompensation Time Spent With Patient Time: Total time managing care of this patient today ____ minutes.
[2024-11-08] MEDS: Metoprolol Succinate ER 12.5 MG HALFTAB.ER.24H PO (20:58)
[2024-11-09 08:00] VITALS: BP 105/57; PULSE 65; RESP 18; TEMP 36.9; O2SAT 97
[2024-11-09] MEDS: Lidocaine 4 % Patch ADH..PATCH 1 PATCH TRANSDERMA (08:20)
[2024-11-09] MEDS: Calcium + Vitamin D 250 MG TABLET PO ×2 (08:22→20:22)
--- NOTE | 2024-11-09 12:10 | P.PNPSI_ITS ---
Subjective Subjective Date of Service: 11/09/24 Reason For Visit: depression si Interim History: mood remains much improved. pleasant, engaging. reading his tome. per staff, watching TV and reading. no issues. eating well. CP - nitro x2. slept 8 hours. family mtg at 1. 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 Impaired Diagnostics Vital Signs (24Hr): Vital Signs - 24 hr 11/08/24 15:13 11/08/24 20:00 11/08/24 20:58 Temperature 96.9 F Pulse Rate 75 75 Respiratory Rate 16 Blood Pressure 99/61 100/58 L 102/60 Pulse Oximetry 95 Oxygen Delivery Method Room Air 11/08/24 21:00 11/08/24 22:12 11/09/24 08:00 Temperature 98.4 F Pulse Rate 79 65 Respiratory Rate 18 Blood Pressure 102/60 99/60 105/57 L Pulse Oximetry 97 Oxygen Delivery Method Room Air BMI result Body Mass Index 24.4 Labs 10/31/24 14:38 10/31/24 14:38 Medications Medications Current Medications Acetaminophen (Acetaminophen 325 Mg Tablet) 650 mg PO Q6H PRN PRN Reason: Headache/Pain, Scale 1-10 Last Admin: 11/02/24 03:05 Dose: 650 mg Al Hydroxide/Mg Hydroxide (Magnesium Hydrox/Alum Hydrox 30 Ml Oral.Susp) 30 ml PO Q6H PRN PRN Reason: Heartburn/Nausea Apixaban (Apixaban 5 Mg Tablet) 5 mg PO BID [facility] Last Admin: 11/09/24 08:22 Dose: 5 mg Ascorbic Acid (Ascorbic Acid 500 Mg Tablet) 500 mg PO DAILY [facility] Last Admin: 11/09/24 08:22 Dose: 500 mg Atorvastatin Calcium (Atorvastatin Calcium 80 Mg Tablet) 80 mg PO DAILY [facility] Last Admin: 11/09/24 08:22 Dose: 80 mg Calcium Carbonate/Cholecalciferol (Calcium + Vitamin D 250 Mg Tablet) 250 mg PO BID [facility] Last Admin: 11/09/24 08:22 Dose: 250 mg Clopidogrel Bisulfate (Clopidogrel Bisulfate 75 Mg Tablet) 75 mg PO BEDTIME [facility] Last Admin: 11/08/24 20:59 Dose: 75 mg Dapsone (Dapsone 25 Mg Tablet) 100 mg PO DAILY [facility] Last Admin: 11/09/24 08:21 Dose: 100 mg Divalproex Sodium (Divalproex Sodium 500 Mg Tablet.Dr) 500 mg PO BID [facility] Last Admin: 11/09/24 08:22 Dose: 500 mg Dofetilide (Dofetilide 125 Mcg Capsule) 125 mcg PO DAILY@1500 [facility] Last Admin: 11/08/24 15:13 Dose: 125 mcg Ezetimibe (Ezetimibe 10 Mg Tablet) 10 mg PO BEDTIME [facility] Last Admin: 11/08/24 20:58 Dose: 10 mg Empagliflozin (Empagliflozin 10 Mg Tablet) 10 mg PO DAILY [facility] Last Admin: 11/09/24 08:22 Dose: 10 mg Isosorbide Mononitrate (Isosorbide Mononitrate 30 Mg Tab.Er.24h) 30 mg PO DAILY [facility]; Protocol Last Admin: 11/09/24 08:21 Dose: 30 mg Levothyroxine Sodium (Levothyroxine Sodium 50 Mcg Tablet) 50 mcg PO SuTuThSa@0600 [facility] Last Admin: 11/09/24 05:02 Dose: 50 mcg Levothyroxine Sodium (Levothyroxine Sodium 200 Mcg Tablet) 200 mcg PO DAILY@0600 [facility] Last Admin: 11/09/24 05:03 Dose: 200 mcg Lidocaine (Lidocaine 4 % Patch Adh..Patch) 1 patch TRANSDERMA DAILY [facility]; Protocol Last Admin: 11/09/24 08:20 Dose: 1 patch Lorazepam (Lorazepam 0.5 Mg Tablet) 0.5 mg PO Q4H PRN PRN Reason: Anxiety Last Admin: 11/08/24 02:05 Dose: 0.5 mg Lorazepam (Lorazepam 0.5 Mg Tablet) 0.5 mg PO TID [facility] Last Admin: 11/09/24 08:23 Dose: 0.5 mg Magnesium Hydroxide (Milk Of Magnesia 30 Ml Oral.Susp) 30 ml PO DAILY PRN PRN Reason: Constipation Last Admin: 11/06/24 14:14 Dose: 30 ml Metoprolol Succinate (Metoprolol Succinate Er 12.5 Mg Halftab.Er.24h) 12.5 mg PO BEDTIME [facility]; Protocol Last Admin: 11/08/24 20:58 Dose: 12.5 mg Midodrine (Midodrine Hcl 10 Mg Tablet) 10 mg PO TID [facility] Last Admin: 11/09/24 08:22 Dose: 10 mg Mirtazapine (Mirtazapine 7.5 Mg Tablet) 7.5 mg PO BEDTIME [facility] Last Admin: 11/08/24 21:00 Dose: 7.5 mg Modafinil (Modafinil 100 Mg Tablet) 100 mg PO DAILY [facility] Last Admin: 11/09/24 08:22 Dose: 100 mg Nitroglycerin (Nitroglycerin 0.4 Mg Tab.Subl) 0.4 mg SUBLINGUAL Q5MX3 PRN PRN Reason: Chest Pain Last Admin: 11/08/24 22:12 Dose: 0.4 mg Pantoprazole Sodium (Pantoprazole Sodium 20 Mg Tablet.Dr) 40 mg PO DAILY [facility] Last Admin: 11/09/24 08:23 Dose: 40 mg Paroxetine HCl (Paroxetine Hcl 30 Mg Tablet) 30 mg PO DAILY [facility] Last Admin: 11/09/24 08:22 Dose: 30 mg Prednisone (Prednisone 20 Mg Tablet) 20 mg PO DAILY [facility]; Taper Stop: 11/20/24 08:59 Last Admin: 11/09/24 08:22 Dose: 20 mg Ranolazine (Ranolazine 500 Mg Tab.Er.12h) 500 mg PO BID [facility] Last Admin: 11/09/24 08:22 Dose: 500 mg Thiamine HCl (Thiamine Hcl 100 Mg Tablet) 100 mg PO DAILY [facility] Last Admin: 11/09/24 08:22 Dose: 100 mg Vitamin D (Cholecalciferol (Vitamin D3) 25 Mcg Tablet) 50 mcg PO DAILY [facility] Last Admin: 11/09/24 08:22 Dose: 50 mcg Allergies Allergies Allergy/AdvReac Type Severity Reaction Status Date / Time Penicillins (PENICILLINS) Allergy Intermediate ITCHY RASH Verified 10/28/24 15:57 Assessment & Plan Assessment & Plan (1) Depression with suicidal ideation: Status: Acute Code(s): F32.A - Depression, unspecified; R45.851 - Suicidal ideations (2) Suicidal ideations: Status: Acute Code(s): R45.851 - Suicidal ideations (3) CAD (coronary artery disease): Status: Acute Code(s): I25.10 - Atherosclerotic heart disease of [place] coronary artery without angina pectoris Plan Patient has been dealing with a number of stressors. 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 He has become increasingly despondent desperate with increasing chest pain that has been difficult to tell between ASHD versus panic Ativan 0.5 PRN anxiety seems to be worth it at this time given patient's current anxiety mood instability. Might benefit if steroids could be decreased monitor response to Ativan p.r.n.. Consider addition of 7.5 mg p.o. Remeron q.h.s. p.r.n.. Patient does have conduction abnormalities in addition to ASHD which must be taken into account in addition to hypotension and being on midodrine would benefit from strategies to manage anxiety and pa which can be increasing anxiety martir 10/30 continue tx. 10/31 continue tx. 11/01/2024 Start scheduled lorazepam consider mirtazapine but does have conduction delay. See if prednisone can be decreased 11/02/2024 Patient erratic depressed anxious fearful periods of irritability no clear response to scheduled lorazepam start mirtazapine low-dose 3.75 monitor EKG which does have history of conduction delay 11/04/2024 Call placed to autoimmune Neurology unable to reach. Patient has significant working attention short-term memory and long-term memory impairment. Difficult taking in strategies for dealing with anxiety and intermittent chest discomfort which has made him at times quite fearful. Patient did have recent coronary angiogram. He is on Depakote for seizure disorder status post autoimmune encephalitis consideration could be given to increase Depakote which may also be helpful for anxiety. Consideration could be given to increasing mirtazapine would monitor response carefully including conduction Unclear why patient has not had a trial of cholinesterase inhibitor question related to his cardiac conduction issues versus alternative such as Namenda Patient's condition labile at times happy and engaged in times fearful overwhelmed and anxious. Continue lorazepam scheduled 11/05: feeling very well, relaxed. mood greatly improved. reading a book in the milieu. continue current mgmt. 11/06: as for yesterday. pt asks to review his entire course of hospitalization with MD, which is accommodated. no staff concerns. 11/07: feeling well. nitro SL PRN added for intermittent CP complaint. otherwise continue current mgmt. 11/08: mood well, reading. aware of upcoming family mtg re dispo. continue current mgmt. 11/09: continues feeling quite well. family meeting today. dispo pending placement. Reason for continued inpatient stay Substantial Risk for: inability to function and rapid decompensation Time Spent With Patient Time: Total time managing care of this patient today __35__ minutes.
[2024-11-09 14:24] VITALS: BP 114/66
[2024-11-09 20:00] VITALS: BP 94/53; PULSE 71; RESP 18; TEMP 36.2; O2SAT 96
--- NOTE | 2024-11-10 02:31 | PC.NURSE ---
Pt S BP 94/53, Toprol XL held, Ileana ([employer]) notified.
--- NOTE | 2024-11-10 07:08 | HO.WOUND ---
Wound Consult: Follow up 74yr old male admitted to [facility] on 10/28/24 20:45- to the Inpatient [facility] Unit - See progress notes and H&P for detailed history.? Wound consult follow up for Skin tears.? Direct care nurse reached out to this newspaper writer regarding healed skin tears. They reported he only remains with skin tears to the left arm. Topical orders to be updated as follows. Left Arm: Cleanse with normal saline, pat dry. ?Apply Xeroform secure with Abd pads or gauze and elastic netting. Change Daily. ?Do not apply tape to patient?s skin.? Avoid Adhesive application to skin - when necessary, apply skin prep prior.? Re-consult wound care Nurse for wound deterioration or wound changes.
[2024-11-10 07:55] VITALS: BP 128/63; PULSE 74; RESP 18; TEMP 36.4; O2SAT 98
[2024-11-10] MEDS: Lidocaine 4 % Patch ADH..PATCH 1 PATCH TRANSDERMA (08:26)
[2024-11-10] MEDS: Calcium + Vitamin D 250 MG TABLET PO ×2 (08:28→19:54)
--- NOTE | 2024-11-10 14:21 | HO.PSYCHPN ---
Subjective Subjective Date of Service: 11/10/24 Reason For Visit: depression si Subjective Notes: Conditional Voluntary Medical Problems Affecting Mental Status: No Interim History: Medical record and nursing notes reviewed; case discussed during rounds with team, and met with patient for supportive therapy/psychoeducation, as well as medication management. Per chart review and nursing report, patient was medication compliant, slept 4 hours last night due to the roommate was and interrupt with his sleep. No appetite issues. Has dressing change on left upper arm. Observe some bruises on bilateral arms which patient reported that he is on high dose of blood thinner. Mood is relaxed . Reports he has family meeting yesterday which went well. He does not remember he is discharged tomorrow. However, he is informed that potential to be discharged tomorrow at 11 and his will pick him up. Some memory issues but mostly intact. Observe he has lidocaine patch apply on front chest. Nursing reports he has reports some chest pain earlier. However denies it during one-to-one assessment with this provider, he appears to be relaxed and reading his book in common area. He also observed attended groups. Observed some hand tremors which he reports he noticed that since yesterday. toll transmission worker also reports that they do not observe patient have hand tremors yesterday during family meeting. We will continue to monitor if it is side effects from medication. Medication Compliance: Yes Attending Groups: Yes Review of Systems Acute medical concerns: No Medical Review of Systems: unchanged Review of Systems Review of Systems Denies any shortness of breath, chest pain, dizziness, lightheadedness, abdominal pain or discomfort, nausea vomiting or diarrhea Yes all other systems are reviewed and are negative Mental Status Exam Mental Status Exam Patient Appearance: Unkempt Patient Orientation: Person and Place Level of Consciousness: Awake and Appropriate Patient Behavior: Appropriate Mood Description: Happy and Relaxed Affect Description: Happy and Appropriate Patient Cognition Impaired: No Ability to Follow Directions: Good Speech Pattern: Clear Memory Description: Claims Analyst Impaired and Episodic Impaired Thought Process: Intact and Goal Oriented Thought Content: positive for Intact Judgement and Insight: fair to good. Diagnostics Vital Signs (24Hr): Vital Signs - 24 hr 11/09/24 14:24 11/09/24 20:00 11/10/24 07:55 Temperature 97.1 F 97.6 F Pulse Rate 71 74 Respiratory Rate 18 18 Blood Pressure 114/66 94/53 L 128/63 Pulse Oximetry 96 98 Oxygen Delivery Method Room Air Room Air BMI result Body Mass Index 24.4 Labs 10/31/24 14:38 10/31/24 14:38 Medications Medications Current Medications Acetaminophen (Acetaminophen 325 Mg Tablet) 650 mg PO Q6H PRN PRN Reason: Headache/Pain, Scale 1-10 Last Admin: 11/02/24 03:05 Dose: 650 mg Al Hydroxide/Mg Hydroxide (Magnesium Hydrox/Alum Hydrox 30 Ml Oral.Susp) 30 ml PO Q6H PRN PRN Reason: Heartburn/Nausea Apixaban (Apixaban 5 Mg Tablet) 5 mg PO BID [facility] Last Admin: 11/10/24 08:26 Dose: 5 mg Ascorbic Acid (Ascorbic Acid 500 Mg Tablet) 500 mg PO DAILY [facility] Last Admin: 11/10/24 08:26 Dose: 500 mg Atorvastatin Calcium (Atorvastatin Calcium 80 Mg Tablet) 80 mg PO DAILY [facility] Last Admin: 11/10/24 08:27 Dose: 80 mg Calcium Carbonate/Cholecalciferol (Calcium + Vitamin D 250 Mg Tablet) 250 mg PO BID [facility] Last Admin: 11/10/24 08:28 Dose: 250 mg Clopidogrel Bisulfate (Clopidogrel Bisulfate 75 Mg Tablet) 75 mg PO BEDTIME [facility] Last Admin: 11/09/24 20:19 Dose: 75 mg Dapsone (Dapsone 25 Mg Tablet) 100 mg PO DAILY [facility] Last Admin: 11/10/24 08:27 Dose: 100 mg Divalproex Sodium (Divalproex Sodium 500 Mg Tablet.Dr) 500 mg PO BID [facility] Last Admin: 11/10/24 08:26 Dose: 500 mg Dofetilide (Dofetilide 125 Mcg Capsule) 125 mcg PO DAILY@1500 [facility] Last Admin: 11/09/24 14:22 Dose: 125 mcg Ezetimibe (Ezetimibe 10 Mg Tablet) 10 mg PO BEDTIME [facility] Last Admin: 11/09/24 20:17 Dose: 10 mg Empagliflozin (Empagliflozin 10 Mg Tablet) 10 mg PO DAILY [facility] Last Admin: 11/10/24 08:28 Dose: 10 mg Isosorbide Mononitrate (Isosorbide Mononitrate 30 Mg Tab.Er.24h) 30 mg PO DAILY [facility]; Protocol Last Admin: 11/10/24 08:29 Dose: 30 mg Levothyroxine Sodium (Levothyroxine Sodium 50 Mcg Tablet) 50 mcg PO SuTuThSa@0600 [facility] Last Admin: 11/09/24 05:02 Dose: 50 mcg Levothyroxine Sodium (Levothyroxine Sodium 200 Mcg Tablet) 200 mcg PO DAILY@0600 [facility] Last Admin: 11/10/24 06:03 Dose: 200 mcg Lidocaine (Lidocaine 4 % Patch Adh..Patch) 1 patch TRANSDERMA DAILY [facility]; Protocol Last Admin: 11/10/24 08:26 Dose: 1 patch Magnesium Hydroxide (Milk Of Magnesia 30 Ml Oral.Susp) 30 ml PO DAILY PRN PRN Reason: Constipation Last Admin: 11/06/24 14:14 Dose: 30 ml Metoprolol Succinate (Metoprolol Succinate Er 12.5 Mg Halftab.Er.24h) 12.5 mg PO BEDTIME [facility]; Protocol Last Admin: 11/09/24 22:10 Dose: Not Given Midodrine (Midodrine Hcl 10 Mg Tablet) 10 mg PO TID [facility] Last Admin: 11/10/24 08:29 Dose: 10 mg Mirtazapine (Mirtazapine 7.5 Mg Tablet) 7.5 mg PO BEDTIME [facility] Last Admin: 11/09/24 20:18 Dose: 7.5 mg Modafinil (Modafinil 100 Mg Tablet) 100 mg PO DAILY [facility] Last Admin: 11/10/24 08:28 Dose: 100 mg Nitroglycerin (Nitroglycerin 0.4 Mg Tab.Subl) 0.4 mg SUBLINGUAL [id number] PRN PRN Reason: Chest Pain Last Admin: 11/08/24 22:12 Dose: 0.4 mg Pantoprazole Sodium (Pantoprazole Sodium 20 Mg Tablet.Dr) 40 mg PO DAILY [facility] Last Admin: 11/10/24 08:30 Dose: 40 mg Paroxetine HCl (Paroxetine Hcl 30 Mg Tablet) 30 mg PO DAILY [facility] Last Admin: 11/10/24 08:28 Dose: 30 mg Prednisone (Prednisone 20 Mg Tablet) 20 mg PO DAILY [facility]; Taper Stop: 11/20/24 08:59 Last Admin: 11/10/24 08:27 Dose: 20 mg Ranolazine (Ranolazine 500 Mg Tab.Er.12h) 500 mg PO BID [facility] Last Admin: 11/10/24 08:28 Dose: 500 mg Thiamine HCl (Thiamine Hcl 100 Mg Tablet) 100 mg PO DAILY [facility] Last Admin: 11/10/24 08:27 Dose: 100 mg Vitamin D (Cholecalciferol (Vitamin D3) 25 Mcg Tablet) 50 mcg PO DAILY [facility] Last Admin: 11/10/24 08:28 Dose: 50 mcg Allergies Allergies Allergy/AdvReac Type Severity Reaction Status Date / Time Penicillins (PENICILLINS) Allergy Intermediate ITCHY RASH Verified 10/28/24 15:57 Assessment & Plan Assessment & Plan (1) Depression with suicidal ideation: Status: Acute Code(s): F32.A - Depression, unspecified; R45.851 - Suicidal ideations (2) Suicidal ideations: Status: Acute Code(s): R45.851 - Suicidal ideations (3) CAD (coronary artery disease): Status: Acute Code(s): I25.10 - Atherosclerotic heart disease of [place] coronary artery without angina pectoris Plan Patient has been dealing with a number of stressors. 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 He has become increasingly despondent desperate with increasing chest pain that has been difficult to tell between ASHD versus panic Ativan 0.5 PRN anxiety seems to be worth it at this time given patient's current anxiety mood instability. Might benefit if steroids could be decreased monitor response to Ativan p.r.n.. Consider addition of 7.5 mg p.o. Remeron q.h.s. p.r.n.. Patient does have conduction abnormalities in addition to ASHD which must be taken into account in addition to hypotension and being on midodrine would benefit from strategies to manage anxiety and pa which can be increasing anxiety martir 10/30 continue tx. 10/31 continue tx. 11/01/2024 Start scheduled lorazepam consider mirtazapine but does have conduction delay. See if prednisone can be decreased 11/02/2024 Patient erratic depressed anxious fearful periods of irritability no clear response to scheduled lorazepam start mirtazapine low-dose 3.75 monitor EKG which does have history of conduction delay 11/04/2024 Call placed to autoimmune Neurology unable to reach. Patient has significant working attention short-term memory and long-term memory impairment. Difficult taking in strategies for dealing with anxiety and intermittent chest discomfort which has made him at times quite fearful. Patient did have recent coronary angiogram. He is on Depakote for seizure disorder status post autoimmune encephalitis consideration could be given to increase Depakote which may also be helpful for anxiety. Consideration could be given to increasing mirtazapine would monitor response carefully including conduction Unclear why patient has not had a trial of cholinesterase inhibitor question related to his cardiac conduction issues versus alternative such as Namenda Patient's condition labile at times happy and engaged in times fearful overwhelmed and anxious. Continue lorazepam scheduled 11/05: feeling very well, relaxed. mood greatly improved. reading a book in the milieu. continue current mgmt. 11/06: as for yesterday. pt asks to review his entire course of hospitalization with MD, which is accommodated. no staff concerns. 11/07: feeling well. nitro SL PRN added for intermittent CP complaint. otherwise continue current mgmt. 11/08: mood well, reading. aware of upcoming family mtg re dispo. continue current mgmt. 11/09: continues feeling quite well. family meeting today. dispo pending placement. 11/10/24: Visible, attending groups, compliant with medications. ? Hand tremors side effects from medication. ? Is it new?. No safety concerns. No behavior issues. Forgetful at times but happy pleasant and cooperative. We [facility] in [place]. He has very complicated medication list. toll transmission worker to contact to pick him by 1100 on 11/11. Patient educated on: diagnosis, medication risk/benefits and therapeutic strategies Informed Consent: understands Reason for continued inpatient stay Substantial Risk for: med/psych decompensation Time Spent With Patient Time: Total time managing care of this patient today ____ minutes.
[2024-11-10 15:36] VITALS: BP 99/62
[2024-11-10 19:48] VITALS: BP 111/65; PULSE 81; RESP 16; TEMP 36.3; O2SAT 95
[2024-11-10 19:54] VITALS: BP 111/65
[2024-11-10 20:15] VITALS: BP 111/65; PULSE 81
[2024-11-10] MEDS: Metoprolol Succinate ER 12.5 MG HALFTAB.ER.24H PO (20:15)
--- NOTE | 2024-11-10 20:26 | PC.NURSE ---
Patient's BP 117/65, Pulse 95. Hospitalist consulted/okayed to administer both Metoprolol and Midodrine.
[2024-11-10 21:42] VITALS: BP 119/63; PULSE 70
[2024-11-11 08:00] VITALS: BP 115/64; PULSE 70; RESP 18; TEMP 36.5; O2SAT 96
[2024-11-11 08:26] VITALS: BP 115/64
[2024-11-11 08:27] VITALS: BP 115/64
[2024-11-11] MEDS: Calcium + Vitamin D 250 MG TABLET PO (08:28)
[2024-11-11] MEDS: Lidocaine 4 % Patch ADH..PATCH 1 PATCH TRANSDERMA (08:29)
--- NOTE | 2024-11-11 10:36 | PM.PSYDC ---
DS: Providers Provider Date of Service: 11/11/24 Date of admission: 10/28/24 20:45 Date of discharge: 11/11/24 Primary care physician: MARGY Florian Consults: 10/28/24 22:29 Consult to Hospitalist Routine Comment: Consulting Provider: [facility] Hospitalists Reason For Exam: review regimen angina hypotension 11/03/24 23:19 Consult to Wound Care Routine Reason for consultation: lacerations both arms bilaterally DS: Diagnosis Discharge Diagnosis (1) Depression with suicidal ideation: Status: Acute (2) Suicidal ideations: Status: Acute (3) CAD (coronary artery disease): Status: Acute DS: Medications Discharge Medications Home Medications: Home Medications ?Medication ?Instructions ?Recorded ?Confirmed alendronate 70 mg tablet 70 mg PO QWEEK 05/20/23 10/28/24 vitamins A,C,[id number] 4,296 1 cap PO BID 12/16/23 10/28/24 mcg-226 mg-90 mg capsule (PreserVision AREDS) Previous Rx's ?Medication ?Instructions ?Recorded apixaban 5 mg tablet (Eliquis) 5 mg PO BID Blood thinner #60 tabs 11/10/24 ascorbate calcium (vitamin C) 500 500 mg PO DAILY lsupplement #30 11/10/24 mg tablet tabs calcium 500 mg (as 1 tab PO BID supplement #60 tabs 11/10/24 carbonate)-vitamin D3 15 mcg (600 unit) tablet cholecalciferol (vitamin D3) 25 50 mcg (2 x 25 mcg (1,000 unit)) 11/10/24 mcg (1,000 unit) tablet PO DAILY supplement #30 tabs clopidogrel 75 mg tablet 75 mg PO BEDTIME Blood thinner 11/10/24 #30 tabs dapsone 100 mg tablet 100 mg PO DAILY #30 tabs 11/10/24 divalproex 500 mg tablet,delayed 500 mg PO BID Mood #60 tabs 11/10/24 release dofetilide 125 mcg capsule 250 mcg (2 x 125 mcg) PO 11/10/24 DAILY@1500 Cardiac #60 caps empagliflozin 10 mg tablet 10 mg PO DAILY Diabetes/Caridiac 11/10/24 (Jardiance) #30 tabs ezetimibe 10 mg tablet 10 mg PO BEDTIME Elevated lipid 11/10/24 profile #30 tabs isosorbide mononitrate 30 mg 30 mg PO DAILY Chest pain /Cardiac 11/10/24 tablet,extended release 24 hr #30 tabs levothyroxine 200 mcg tablet 200 mcg PO DAILY@0600 #30 tabs 11/10/24 levothyroxine 50 mcg tablet 50 mcg PO SuTuThSa@0600 thyroidism 11/10/24 #30 tabs lidocaine 4 % topical patch 1 patch transdermal DAILY Pain #30 11/10/24 (Lidocaine Pain Relief) ea mecobalamin (vitamin B12) 1,000 1,000 mcg PO DAILY supplement 0 11/10/24 mcg chewable tablet days #30 tabs metoprolol succinate 50 mg 12.5 mg (1/4 x 50 mg) PO BEDTIME 11/10/24 tablet,extended release 24 hr Cardiac #30 tabs midodrine 5 mg tablet 10 mg (2 x 5 mg) PO TID 11/10/24 Hypotension #90 tabs modafinil 100 mg tablet 100 mg PO DAILY Depression #30 11/10/24 tabs nitroglycerin 0.4 mg sublingual 0.4 mg sublingual Q5M PRN chest 11/10/24 tablet (Nitrostat) pain 30 days #90 tabs pantoprazole 40 mg tablet,delayed 40 mg PO DAILY GERD #30 tabs 11/10/24 release paroxetine HCl 20 mg tablet 30 mg (1.5 x 20 mg) PO QAM 30 days 11/10/24 #45 tabs prednisone 10 mg tablet 10 mg PO DAILY Taper #10 tabs 11/10/24 prednisone 20 mg tablet 20 mg PO DAILY Taper #1 tab 11/10/24 ranolazine 500 mg tablet,extended 500 mg PO BID Cardiac #60 tabs 11/10/24 release,12 hr thiamine HCl (vitamin B1) 100 mg 100 mg PO DAILY supplement #30 11/10/24 tablet tabs mirtazapine 7.5 mg tablet 7.5 mg PO BEDTIME 30 days #30 tabs 11/11/24 Mental Status Exam Mental Status Exam Narrative: mood calm. denies SI/HI/AVH. 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 Patient has been on Paxil he has become increasingly desperate despondent thoughts that there is no way out any can not stand how he is feeling. He describes recent anxiety panic shortness breath at times chest pain and has been evaluated in the [facility] Emergency room over 6 times in the past month. He has felt increasingly hopeless helpless irritable stating is panic attacks and patient has had thoughts to shoot himself. He is not being given he states any medical answers in that there is nothing further really to offer him. He does have an implanted defibrillator. Patient has been increasingly depressed with thoughts of suicide over the past 2 months approximately. Patient appears to chronic unstable angina. Patient does have an appointment to see psychiatric provider. His condition is complicated by being diagnosed and now treated for autoimmune encephalitis Medical Evaluation Reviewed: Yes [facility] Medical History (Updated 10/29/24 @ 23:22 by Joshua Rodrigues MD) STEMI (ST elevation myocardial infarction) Fall Atrial fibrillation with RVR Respiratory failure Limbic encephalitis Hypotension History of blood transfusion Osteopenia Hyperparathyroidism Severe obstructive sleep apnea Hypothyroidism Familial hypocalciuric hypercalcemia Vitamin D deficiency HTN (hypertension) Carpal tunnel syndrome of left wrist Ischemic cardiomyopathy Left carpal tunnel syndrome PTSD (post-traumatic stress disorder) FÉLIX (obstructive sleep apnea) Pulmonary nodule Paroxysmal atrial fibrillation Depression CAD (coronary artery disease) Surgical History Hx of cataract Hx of total knee replacement History of AAA (abdominal aortic aneurysm) repair AICD (automatic cardioverter/defibrillator) present Hx of colonoscopy Hx of discectomy Hx of appendectomy Hx of tonsillectomy S/P CABG x 6 Narrative: History of substance abuse treatment past alcohol use 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 [employer] [facility] [employer] Substance History: hx alcohol abuse Precis: Patient has been dealing with a number of stressors. 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 He has become increasingly despondent desperate with increasing chest pain that has been difficult to tell between ASHD versus panic Ativan 0.5 PRN anxiety seems to be worth it at this time given patient's current anxiety mood instability. Might benefit if steroids could be decreased monitor response to Ativan p.r.n.. Consider addition of 7.5 mg p.o. Remeron q.h.s. p.r.n.. Patient does have conduction abnormalities in addition to ASHD which must be taken into account in addition to hypotension and being on midodrine would benefit from strategies to manage anxiety and pa which can be increasing anxiety martir 11/01/2024 Start scheduled lorazepam consider mirtazapine but does have conduction delay. See if prednisone can be decreased 11/02/2024 Patient erratic depressed anxious fearful periods of irritability no clear response to scheduled lorazepam start mirtazapine low-dose 3.75 monitor EKG which does have history of conduction delay 11/04/2024 Call placed to autoimmune Neurology unable to reach. Patient has significant working attention short-term memory and long-term memory impairment. Difficult taking in strategies for dealing with anxiety and intermittent chest discomfort which has made him at times quite fearful. Patient did have recent coronary angiogram. He is on Depakote for seizure disorder status post autoimmune encephalitis consideration could be given to increase Depakote which may also be helpful for anxiety. Consideration could be given to increasing mirtazapine would monitor response carefully including conduction Unclear why patient has not had a trial of cholinesterase inhibitor question related to his cardiac conduction issues versus alternative such as Namenda Patient's condition labile at times happy and engaged in times fearful overwhelmed and anxious. Continue lorazepam scheduled 11/05: feeling very well, relaxed. mood greatly improved. reading a book in the milieu. continue current mgmt. 11/06: as for yesterday. pt asks to review his entire course of hospitalization with MD, which is accommodated. no staff concerns. 11/07: feeling well. nitro SL PRN added for intermittent CP complaint. otherwise continue current mgmt. 11/08: mood well, reading. aware of upcoming family mtg re dispo. continue current mgmt. 11/09: continues feeling quite well. family meeting today. dispo pending placement. 11/10/24: Visible, attending groups, compliant with medications. ? Hand tremors side effects from medication. ? Is it new?. No safety concerns. No behavior issues. Forgetful at times but happy pleasant and cooperative. We will work on sending medication to preferred pharmacy [facility] [employer] [facility] in [place]. He has very complicated medication list. dry cure worker to contact to pick him by 1100 on 11/11. 11/11: stable overnight, safe. meds reviewed, reconciled, prescribed. discharged to home as per plan. Time Spent with Patient Time attestation: Total time managing care of this patient today __45__ minutes. Discharge Plan Discharge Anticipated Discharge Date/Time: 11/11/24 11:00 Patient Disposition: Home, Self-Care Discharge Diagnosis: Depressive Disorder NOS Referrals: Therapy: Roberto Carlos ([facility] [employer]) [Other] - 11/18/24 1:30 pm Referral Note: Appointment is in person at the office in [place] Neurologist: Dr. García ([facility]) [Other] - 07/05/25 10:00 am Referral Note: Appointment is scheduled in person at [facility], [facility], 8th floor, [address]. Please arrive 15 minutes early and bring your ID as well as health insurance card. Renard has been placed on a cancellation list and will be contacted if a sooner appointment becomes available. Neuroimmunology: [facility] [Other] - 1 Week Referral Note: They will contact you to schedule your next appointment once their new schedule is available in the next couple of weeks Allergy/Immunology: Radha Garcia ([facility]) [Other] - 02/15/25 11:00 am Home Care Assessment: [facility] [Other] - 11/12/24 2:00 pm Referral Note: At time of home assessment, inquire about applying for frail elder waiver in order to have the option to attend Adult Day Health program Psych Prescriber: [facility] ([facility]) [Other] - 1 Week Referral Note: Referral for psychiatric prescriber has been made but appointment has not yet been received, [facility] social work therapist will call on Friday, 11/12, to give you appointment information Adult Day Health: [place] [facility] [Other] - 1 Week Referral Note: This adult day health does not accept your insurance but it is recommended you request elder services apply for a frail elder waiver, if waiver obtained, the waiver will cover adult day health costs Call the above number to refer or schedule a tour and day visit. They will also provide transportation to and from the program Ezra Denney FNP-BC [Primary Care Provider, Internal Medicine] - 01/04/25 11:30 am Discharge Medications: New prednisone 20 mg Tablet 20 mg PO DAILY Qty: 1 0RF Rx Instructions: Take 20mg on 11/12/24. Then Stop lidocaine [Lidocaine Pain Relief] 4 % Adhesive Patch,Medicated 1 patch transdermal DAILY Qty: 30 0RF Protocol: Apply to: Apply to: chest Rx Instructions: apply to chest levothyroxine 50 mcg Tablet 50 mcg PO SuTuThSa@0600 Qty: 30 0RF prednisone 10 mg tablet 10 mg PO DAILY Qty: 10 0RF Rx Instructions: Take 10mg on 11/13/24 x7 days then stop. mirtazapine 7.5 mg Tablet 7.5 mg PO BEDTIME 30 Days Qty: 30 0RF Continued metoprolol succinate 50 mg tablet extended release 24 hr 12.5 mg PO BEDTIME Qty: 30 0RF isosorbide mononitrate 30 mg tablet extended release 24 hr 30 mg PO DAILY Qty: 30 0RF thiamine HCl (vitamin B1) 100 mg tablet 100 mg PO DAILY Qty: 30 0RF clopidogrel 75 mg tablet 75 mg PO BEDTIME Qty: 30 0RF divalproex 500 mg tablet,delayed release (DR/EC) 500 mg PO BID Qty: 60 0RF paroxetine HCl 20 mg tablet 30 mg PO QAM 30 Days Qty: 45 0RF pantoprazole 40 mg tablet,delayed release (DR/EC) 40 mg PO DAILY Qty: 30 0RF dapsone 100 mg tablet 100 mg PO DAILY Qty: 30 0RF ascorbate calcium (vitamin C) 500 mg tablet 500 mg PO DAILY Qty: 30 0RF nitroglycerin [Nitrostat] 0.4 mg tablet, sublingual 0.4 mg sublingual Q5M PRN (Reason: chest pain) 30 Days Qty: 90 0RF Rx Instructions: do not exceed 3 doses per episode levothyroxine 200 mcg Tablet 200 mcg PO DAILY@0600 Qty: 30 0RF modafinil 100 mg tablet 100 mg PO DAILY Qty: 30 0RF ezetimibe 10 mg tablet 10 mg PO BEDTIME Qty: 30 0RF ranolazine 500 mg tablet extended release 12 hr 500 mg PO BID Qty: 60 0RF cholecalciferol (vitamin D3) 25 mcg (1,000 unit) tablet 50 mcg PO DAILY Qty: 30 0RF calcium carbonate-vitamin D3 500 mg-15 mcg (600 unit) tablet 1 tab PO BID Qty: 60 0RF Eliquis 5 mg tablet 5 mg PO BID Qty: 60 0RF Jardiance 10 mg tablet 10 mg PO DAILY Qty: 30 0RF mecobalamin (vitamin B12) 1,000 mcg tablet,chewable 1,000 mcg PO DAILY Qty: 30 0RF alendronate 70 mg tablet 70 mg PO QWEEK PreserVision AREDS 4,296 mcg-226 mg-90 mg capsule 1 cap PO BID Changed midodrine 5 mg tablet 10 mg PO TID Qty: 90 0RF dofetilide 125 mcg capsule 250 mcg PO DAILY@1500 Qty: 60 0RF Rx Instructions: give mid day 2p-3p Discontinued rosuvastatin 40 mg tablet 40 mg PO DAILY Qty: 90 1RF levothyroxine 50 mcg Tablet 50 mcg PO MOWEFR@0600 acetaminophen 325 mg capsule 325 mg PO QID PRN (Reason: Pain) melatonin 3 mg capsule 6 mg PO BEDTIME PRN (Reason: Insomnia) prednisone 20 mg tablet See Taper PO DAILY Taper: Prednisone 40 mg daily for 7 Days and 0 Hour 30 mg daily for 7 Days and 0 Hour 20 mg daily for 7 Days and 0 Hour 10 mg daily for 7 Days and 0 Hour Discharge Orders: Discharge Order (Routine); Ordered 11/11/24 Ordered By: Yunior Velasquez Diet: Advance to usual diet Activity on Discharge: As tolerated Stand Alone Forms: Patient Portal Discharge page Print Language: [place] Care Plan Goals: remain safe and stable in the outpatient treatment setting Health Concerns: Cardiovascular Disease Autoimmune Encephalitis Plan of Treatment: take medications as prescribed, attend appointments as scheduled Assessment: not at imminent risk of harm to self or others Discharge Date/Time: 11/11/24 11:40
--- NOTE | 2024-11-11 11:49 | PC.NURSE ---
Patient was aware of discharge, reported readiness for discharge. D/C instructions given to the patient and his . They left the unit at 11:40, took all patient's belongings with them.
== END 2024-11-11 11:40 | disposition home or self-care (01) | DRG 881 ==
LOC: HO.ED 21:02 → HO.PGERI 21:40
PROVIDERS: Physician Assistant; Physician Assistant Medical; Student in an Organized Health Care Education/Training Program; Admitting Provider Psychiatry & Neurology Psychiatry; Emergency Provider Internal Medicine; PCP Nurse Practitioner Family; Visit Provider Psychiatry & Neurology Psychiatry
DX: F32.A Depression, unspecified (principal); G04.81 Other encephalitis and encephalomyelitis; I50.22 Chronic systolic (congestive) heart failure; R45.851 Suicidal ideations; M81.0 Age-related osteoporosis without current pathological fracture; I25.119 Atherosclerotic heart disease of native coronary artery with unspecified angina pectoris; E03.9 Hypothyroidism, unspecified; I11.0 Hypertensive heart disease with heart failure; G40.909 Epilepsy, unspecified, not intractable, without status epilepticus; I48.0 Paroxysmal atrial fibrillation; R41.9 Unspecified symptoms and signs involving cognitive functions and awareness; Z95.810 Presence of automatic (implantable) cardiac defibrillator; F17.210 Nicotine dependence, cigarettes, uncomplicated; Z71.6 Tobacco abuse counseling; Z95.1 Presence of aortocoronary bypass graft; Z79.01 Long term (current) use of anticoagulants; Z79.02 Long term (current) use of antithrombotics/antiplatelets; Z79.890 Hormone replacement therapy; Z79.899 Other long term (current) drug therapy
CPT/HCPCS: 36415; 80048; 80053; 80061; 80143; 80164; 80179; 80307; 81001; 82140; 82607; 82746; 82947; 83036; 84439; 84443; 84484; 85025; 85027; 85379; 93005; 99212; 99285; S9485

== ENCOUNTER → 2024-10-28 19:39 | Outpatient (BNV) | payer MEDICARE, SELFPAY | PROVIDERS: Admitting Provider Psychiatry & Neurology Psychiatry; Emergency Provider Internal Medicine; PCP Nurse Practitioner Family; Visit Provider Internal Medicine | DX: I45.2 Bifascicular block (principal); I51.7 Cardiomegaly; I25.2 Old myocardial infarction | CPT/HCPCS: 93010 ==

== ENCOUNTER 2024-10-28 20:45 | Outpatient (BNV) | payer MEDICARE, SELFPAY | END 2024-11-02 02:54 | PROVIDERS: Admitting Provider Psychiatry & Neurology Psychiatry; Emergency Provider Internal Medicine; PCP Nurse Practitioner Family; Visit Provider Internal Medicine Cardiovascular Disease | DX: I45.2 Bifascicular block (principal); I51.7 Cardiomegaly; I25.2 Old myocardial infarction | CPT/HCPCS: 93010 ==

== ENCOUNTER 2024-10-28 20:45 | Outpatient (BNV) | payer MEDICARE, SELFPAY | END 2024-10-31 13:33 | PROVIDERS: Admitting Provider Psychiatry & Neurology Psychiatry; Emergency Provider Internal Medicine; PCP Nurse Practitioner Family; Visit Provider Internal Medicine Cardiovascular Disease | DX: I45.2 Bifascicular block (principal); I25.2 Old myocardial infarction | CPT/HCPCS: 93010 ==

== ENCOUNTER 2024-10-28 20:45 | Outpatient (BNV) | payer MEDICARE, SELFPAY | END 2024-11-04 08:00 | PROVIDERS: Admitting Provider Psychiatry & Neurology Psychiatry; Emergency Provider Internal Medicine; PCP Nurse Practitioner Family; Visit Provider Internal Medicine Cardiovascular Disease | DX: I45.2 Bifascicular block (principal); I51.7 Cardiomegaly; I25.2 Old myocardial infarction | CPT/HCPCS: 93010 ==

== ENCOUNTER → 2024-10-28 20:45 | Outpatient (BNV) | payer MEDICARE, SELFPAY | PROVIDERS: Admitting Provider Psychiatry & Neurology Psychiatry; Emergency Provider Internal Medicine; PCP Nurse Practitioner Family; Visit Provider Psychiatry & Neurology Psychiatry | DX: R45.851 Suicidal ideations (principal); F32.A Depression, unspecified; I25.10 Atherosclerotic heart disease of native coronary artery without angina pectoris | CPT/HCPCS: 90792 ==

== ENCOUNTER → 2024-10-28 20:45 | Outpatient (BNV) | payer MEDICARE, SELFPAY | PROVIDERS: Admitting Provider Psychiatry & Neurology Psychiatry; Emergency Provider Internal Medicine; PCP Nurse Practitioner Family; Visit Provider Nurse Practitioner Family | DX: I25.10 Atherosclerotic heart disease of native coronary artery without angina pectoris (principal) | CPT/HCPCS: 99222; 99499 ==

== ENCOUNTER → 2024-10-28 20:45 | Outpatient (BNV) | payer MEDICARE, SELFPAY | PROVIDERS: Admitting Provider Psychiatry & Neurology Psychiatry; Emergency Provider Internal Medicine; PCP Nurse Practitioner Family; Visit Provider Social Worker | DX: F32.2 Major depressive disorder, single episode, severe without psychotic features (principal); R45.851 Suicidal ideations; I25.10 Atherosclerotic heart disease of native coronary artery without angina pectoris | CPT/HCPCS: 99231 ==

== ENCOUNTER 2025-01-04 11:23 | Outpatient (AMB) | payer MEDICARE, SELFPAY ==
[2025-01-04 11:32] VITALS: BP 118/70; PULSE 77; TEMP 37.1; O2SAT 97; BMI 24.5
--- NOTE | 2025-01-04 11:32 | MHC.PC.OV ---
Vital Signs 01/04/25 11:32 Height 6 ft Weight 181 lb BMI 24.5 BP 118/70 Blood Pressure Location Lt brachial Position Sitting Pulse 77 Pulse Source Pulse Oximeter Temp 98.8 F Temp Source Oral Pulse Oximetry (%) 97 Oxygen Delivery Method Room Air Intake Visit Reasons: lab review Publication Designer Required: No Accompanied by: Self / Same As Patient Allergies Penicillins (PENICILLINS) Allergy (Intermediate, Verified 01/04/25 12:02) ITCHY RASH Medication List - Last Reconciled 01/04/25 by Ezra Denney TECHNICIAN [employer]IC[employer]CTOR DEVELOPMENT- alendronate 70 mg PO QWEEK apixaban (Eliquis) 5 mg PO BID ascorbate calcium (vitamin C) 500 mg PO DAILY calcium carbonate-vitamin D3 500 mg-15 mcg (600 unit) 1 tab PO BID cholecalciferol (vitamin D3) 50 mcg (2 x 25 mcg (1,000 unit)) PO DAILY clopidogrel 75 mg PO BEDTIME dapsone 100 mg PO DAILY divalproex 500 mg PO BID dofetilide 250 mcg (2 x 125 mcg) PO DAILY@1500 empagliflozin (Jardiance) 10 mg PO DAILY ezetimibe 10 mg PO BEDTIME isosorbide mononitrate ER 30 mg PO DAILY levothyroxine 50 mcg PO SuTuThSa@0600 levothyroxine 200 mcg PO DAILY@0600 lidocaine 4% (Lidocaine Pain Relief) 1 patch See Protocol transdermal DAILY lorazepam 0.5 mg (1/2 x 1 mg) PO TID 30 days mecobalamin (vitamin B12) 1,000 mcg PO DAILY 0 days metoprolol succinate ER 12.5 mg (1/4 x 50 mg) PO BEDTIME mirtazapine 7.5 mg PO BEDTIME 30 days modafinil 100 mg PO DAILY nitroglycerin (Nitrostat) 0.4 mg sublingual Q5M PRN 30 days pantoprazole 40 mg PO DAILY paroxetine HCl 30 mg (1.5 x 20 mg) PO QAM 30 days ranolazine ER 500 mg PO BID thiamine HCl (vitamin B1) 100 mg PO DAILY vitamins A,C,D-ilpb-sibpks 4,296 mcg-226 mg-90 mg (PreserVision AREDS) 1 cap PO BID Tobacco use date assessed: 01/04/25 Fall risk assessment: 1 Fall in past year Last assessed Fall Risk: 01/04/25 Dental Screening Dental Screen Date: 01/04/25 Did you have a dental visit in the last 12 months?: Yes Did you have a dental problem in the last 6 months where you did not have access to dental care?: No Was dental information given to patient?: Patient has dentist HPI lab review HPI Details Chief Complaint The patient presents with chest pain. History of Present Illness The patient is a 74-year-old male presenting for a follow up for chest pain ([facility] [place] He has a history of Acute Coronary Syndrome with previous stent placement and Coronary Artery Bypass Grafting. Recently, he experienced chest pain radiating to his arm while sitting, without nausea or diaphoresis. He is on Eliquis, Plavix, and aspirin, and used nitroglycerin during the episode, though its effectiveness was uncertain. His blood pressure and vital signs were stable, with no reproducible chest pain or shortness of breath on examination. Diagnostic tests including EKG, CBC, CMP, and troponin were stable, except for an elevated proBNP level of around 1999. Despite the elevated proBNP, there were no signs of fluid or volume overload, and the patient had clear lungs and trace edema in the lower extremities (today). The patient reported chest discomfort today, typically occurring while sitting or around meals, suggesting possible esophageal spasms or acid reflux, despite being on pantoprazole. He continues to follow up with his education sales consultant for ongoing management. Social History Health Maintenance Review of Systems - Cardiovascular: denies CP currently, denies any sob, marin, blurred vision, dizziness Physical Exam General: Cooperative, healthy appearing, comfortable, no acute distress and well developed Orientation: Patient oriented x3 Limitations: No limitations Head: Normal to inspection Ears: Hearing grossly normal bilaterally Nose: Normal external nose present Face and sinus: Normal facial exam Eyes: Appearance normal, both eyes and all related structures Neck: Normal visual inspection and Yes full ROM Respiratory: Normal respiratory effort and able to speak in complete sentences. Clear to auscultation bilaterally Cardiovascular: Regular rate and rhythm. Normal S1 and S2, faint systolic murmur GI: Normal to inspection. Soft to palpation and nontender Skin: No rashes or lesions noted Neuro: Patient oriented x3 Extremities: Trace edema to bilaterally lower extremities Results - Labs: Elevated proBNP around 1999. - Tests: EKG, CBC, CMP, and troponin were stable. Plan 1. Acute Coronary Syndrome The patient has a history of Acute Coronary Syndrome with previous interventions including stent placement and Coronary Artery Bypass Grafting. Current management includes medications such as Eliquis, Plavix, and aspirin. Despite stable diagnostic tests, the elevated proBNP suggests ongoing cardiac stress, warranting continued cardiology follow-up. 2. Chest Pain The patient experiences chest pain radiating to the arm, typically while sitting or around meals. The pain's association with meals raises the possibility of esophageal spasms or acid reflux, despite pantoprazole use. Further evaluation with an EKG is planned to rule out cardiac causes. 3. Elevated Probnp The elevated proBNP level of around 2000 indicates potential cardiac stress, though no signs of fluid overload were observed. Continued monitoring and cardiology follow-up are recommended to assess cardiac function. 4. Esophageal Spasms The patient reports chest discomfort potentially related to esophageal spasms or acid reflux, despite being on pantoprazole. Further evaluation and management may be needed if symptoms persist. Discussion Notes I discussed with the patient the potential causes of his chest pain, including esophageal spasms or acid reflux, and the importance of continuing his current medications. We also reviewed the need for further evaluation with an EKG and the importance of ongoing follow-up with his education sales consultant. Patient Instructions - Continue taking prescribed medications: Eliquis, Plavix, aspirin, and pantoprazole. - Monitor for any new or worsening symptoms and report them immediately. - Follow up with your education sales consultant as scheduled. [facility] Medical History STEMI (ST elevation myocardial infarction) Fall Atrial fibrillation with RVR Respiratory failure Limbic encephalitis Hypotension History of blood transfusion Osteopenia Hyperparathyroidism Severe obstructive sleep apnea Hypothyroidism Familial hypocalciuric hypercalcemia Vitamin D deficiency HTN (hypertension) Carpal tunnel syndrome of left wrist Ischemic cardiomyopathy Left carpal tunnel syndrome PTSD (post-traumatic stress disorder) FÉLIX (obstructive sleep apnea) Pulmonary nodule Paroxysmal atrial fibrillation Depression CAD (coronary artery disease) Surgical History Hx of cataract Hx of total knee replacement History of AAA (abdominal aortic aneurysm) repair AICD (automatic cardioverter/defibrillator) present Hx of colonoscopy Hx of discectomy Hx of appendectomy Hx of tonsillectomy S/P CABG x 6 Family History Father CAD (coronary artery disease) Substance use disorder Mother CVA (cerebral vascular accident) Paternal Uncle Substance use disorder Other Mental health disorder Social History Household Members: Spouse Housing: House Are you a primary childbirth and infant care teacher to a significant other at home: No Do you presently have visiting nurse or other home services: No Alcohol intake: never Comment: aware of trip hazard Patient Tobacco Use Status: Current someday Tobacco user Tobacco use type: Cigar e-Cigarette/Vaping Use: Never Used Second Hand Smoke Exposure: No Substance Use Type: Marijuana Advance Directives Date on File: 07/27/21 service: No Current occupational status: retired Sexual orientation: Straight/Heterosexual Cognitive needs: No Hearing needs: No Vision needs: Yes Questionnaire Thrive Questionnaire Date Thrive assessed: 07/20/24 I am a: Parent/Caregiver What is your living situation today?: I have a steady place to live Within the past 12 months, did the food you bought not last and you didn't have the money to get more?: Never true Within the past 12 months, did you worry whether your food would run out before you got money to buy more?: Never true Do you have trouble paying for medicines?: No Do you have trouble getting transportation to medical appointments?: No Do you have trouble paying your heating and electricity bill?: No Do you have trouble taking care of your child, family member or friend?: No Do you have trouble with day-to-day activities such as bathing, preparing meals, shopping, managing finances, etc.?: No Are you currently unemployed and looking for a job?: No Are you interested in more education?: No Please select the resources that you would like help with: None THRIVE Score: 0 AUDIT C Alcohol Use Questionnaire (AUDIT-C) 3. How often do you have six or more drinks on one occasion?: Never Total Score: 0 TOBIAS-7 AMB Questionnaire TOBIAS-7 Date TOBIAS - 7 assessed: 12/16/23 Source: Developed by Drs. Jason Michel, Porsche Aguilar, Missael Lindsay and colleagues, with an educational angela from [employer]. Physical exam (Primary Care) BMI result Body Mass Index 24.5 Tobacco/Smoking Status: Tobacco use Status Tobacco use date assessed 07/27/24 01/04/25 11:32 Patient Tobacco Use Status Current someday Tobacco 01/04/25 11:32 Tobacco use type Cigar 01/04/25 11:32 e-Cigarette/Vaping Use Never Used 01/04/25 11:32 Thrive Assessment: Date of Thrive Assessment Date Thrive assessed 07/20/24 01/04/25 11:32 Coding Level of Care Code Est Pt Level 4 (27971) Diagnoses Chest pain R07.9 B12 deficiency E53.8 Assessment & Plan Assessment & Plan (1) Chest pain: Code(s): R07.9 - Chest pain, unspecified Category: Medical (2) B12 deficiency: Code(s): E53.8 - Deficiency of other specified B group vitamins Category: Medical Plan . Orders: Orders Lipid Panel Today R07.9 - Chest pain, unspecified Vitamin B12 and Folate Today E53.8 - Deficiency of other specified B group vitamins Complete Blood Count Auto Diff Today R07.9 - Chest pain, unspecified Comprehensive Sargent. Panel Fast Today R07.9 - Chest pain, unspecified TSH reflex Free T4 Today R07.9 - Chest pain, unspecified UA CC w/rflx Micro + Cult Today R07.9 - Chest pain, unspecified AMB EKG-In Office Today R07.9 - Chest pain, unspecified
--- OUTSIDE RECORDS SUMMARY | 2025-01-04 13:03 | XMS_ITS | Encounter Summary ---
Author Organization [facility] Address [address] [place] [address] [address] [place] [address] Phone Care Team Providers Care Industrial Property Appraiser Name Role Phone Seymour Ferris LABOR RELATIONS TEACHER Unavailable Tony Miranda MD Unavailable Keyla Melton PA-C Unavailable Jamie Soto MD Unavailable Mamadou Loving DO Unavailable Roger Jorgensen SCIENTIFIC PROCESS OPERATOR Unavailable [phone] Rinku Carrizales MD Unavailable [phone] Ezra Denney SCIENTIFIC PROCESS OPERATOR Primary Care Provider + Encounter Details Date Type Department Care Team (Late st Contact Info) Description 03/14/2021 Transcribe [facility] [address] [facility] [address], [address] [place] [address] Marivel Denny MD [address] [address] [email or web address] Social History Tobacco Use Types Packs/Day Years Used Date Smoking Tobacco: Former Cigarettes Cigars Smokeless Tobacco: Never Comments:occasional cigars Alcohol Use Standard Drinks/Week Comments Not Currently 0 (1 standard drink = 0.6 oz pure alcohol) recovering alcoholic, sober since 1997 Sex and Gender Information Value Date Recorded Sex Assigned at Male 02/18/2023 7:50 AM EDT Legal Sex Male 5:07 PM EST Gender Identity Male 02/18/2023 7:50 AM EDT Sexual Orientation Straight 02/18/2023 7: 50 AM EDT documented as of this encounter Plan of Treatment Upcoming Encounters Date Type Department Care Team (Late st Contact Info) Description 08/24/2024 Procedure Pass Echo [facility] [address] [place] [address] 02/15/2025 1:00 PM EDT Office [place] [facility] [place] [place] [address] [facility], 4th Floor, [address] [place] [address] Radha Garcia MD [address] [facility] [address] [place] [address] [email or web address] 05/03/2025 11:15 AM EST Office Visit [facility] [address] [place] [address] 3rd Floor, [address] [place] [address] Tony Sargent, [address] [place] [address] 08/24/2025 11:15 AM EDT Appointment Echo Lab [place] [address] [place] [address] Tony Sargent, DO [address] [place] [address] [place] [address] documented as of this encounter Visit Diagnoses Not on filedocumented in this encounter Care Teams Industrial Property Appraiser Relationship Specialty Start Date End Date Ezra Dennye NP [address] [facility] [place] [address] PCP - General Family Medicine 07/07/19 Seymour Ferris, MIKE [address] [place] [address] [place] [address] [email or web address] Historical LMR Provider 02/20/1705/12/21 Tony Miranda MD [address] [place] [address] [email or web address] Historical LMR Provider 02/20/17 Keyla Melton PA-C [address] [place] [address] [email or web address] Historical LMR Provider 02/20/17 05/12/21 Jamie Soto MD [address] [place] [address] [email or web address] Historical LMR Provider 02/20/17 Mamadou Loving DO [address] [place] [address] Historical LMR Provider 02/20/17 Roger Jorgensen, NACHO [address] [place] [address] [address] Historical LMR Provider 02/20/17 2 Rinku Carrizales MD [address] [place] [address] [email or web address] Historical LMR Provider 02/20/17 documented as of this encounter Additional Source Comments The information contained in this document represents components of the legal health record. It is not the complete legal health record.[facility]
--- OUTSIDE RECORDS SUMMARY | 2025-01-04 13:03 | XMS_ITS | Encounter Summary ---
Author Organization [facility] Address [address] [place] [address] [place] [address] Phone Care Team Providers Care Willow Machine Operator Name Role Phone Mamadou Loving DO Primary Care Provider Seymour Ferris LICENSE INSPECTOR Unavailable Tony Miranda MD Unavailable [phone] Keyla Melton PA-C Unavailable Jamie Soto MD Unavailable Mamadou Loving DO Unavailable Roger Jorgensen SPLICING SUPERVISOR Unavailable Rinku Carrizales MD Unavailable [phone] Ezra Denney NP Primary Care Provider + Encounter Details Date Type Department Care Team (Late st Contact Info) Description 09/02/2018 Procedure Pass [facility] [place] Cardiac Sales Representative Cash Registers [address] [facility], [address] 9, [address] [place] [address] Social History Tobacco Use Types Packs/Day Years [...] Info) Description 08/24/2024 Procedure Pass Echo Lab [address] [place] [address] 02/15/2025 1:00 PM EDT Office Visit [facility] [place] [address] [facility], 4th Floor, [address] [place] [address] Radha Garcia MD [address] [facility] [address] [place] [address] [email or web address] 05/03/2025 11:15 AM EST Office Visit [facility] [address] [place] [address] 3rd Floor, [address] [place] [address] Tony Sargent [address] [place] [address] 08/24/2025 11:15 AM EDT Appointment Echo [facility] [address] [place] [address] Tony Sargent [address] [place] [address] documented as of this encounter Visit Diagnoses Not on filedocumented in this encounter Care Teams Willow Machine Operator Relationship Specialty Start Date End Date Mamadou Loving DO [address] [place] [address] PCP - General 02/20/17 07/06/19 Ezra Denney NP [facility] [place] [address] PCP - General Family Medicine 07/07/19 Seymour Ferris, MIKE [address] [place] [address] [place] [address] [email or web address] Historical LMR Provider 02/20/1705/12/21 Tony Miranda MD [address] [place] [address] [place] [address] [email or web address] Historical LMR Provider 02/20/17 Keyla Melton PA-C [address] [place] [address] [email or web address] Historical LMR Provider 02/20/17 05/12/21 Jamie Soto MD [address] [place] [address] [email or web address] Historical LMR Provider 02/20/17 Mamadou Loving DO [address] [place] [address] Historical LMR Provider 02/20/17 Roger Jorgensen NP [address] [place] [address] [address] Historical LMR Provider 02/20/17 2 Rinku Carrizales MD [address] [place] [address] [email or web address] Historical LMR Provider 02/20/17 documented as of this encounter Additional Source Comments The information contained in this document represents components of the legal health record. It is not the complete legal health record.[facility]
--- OUTSIDE RECORDS SUMMARY | 2025-01-04 13:03 | XMS_ITS | Encounter Summary ---
Author Organization [facility] Address [address] [place] [address] [place] [address] Phone Care Team Providers Care Trustee Of Estate Name Role Phone Mamadou Loving DO Primary Care Provider [phone] Seymour Ferris FISHER WEIR Unavailable Tony Miranda MD Unavailable Keyla Melton PA-C Unavailable [phone] Jamie Soto MD Unavailable [phone] Mamadou Loving DO Unavailable Roger Jorgensen DINING ROOM MANAGER Unavailable Rinku Carrizales MD Unavailable [phone] Ezra Denney NP Primary Care Provider + Encounter Details Date Type Department Care Team (Latest Contact Info) Description 07/10/2017 Ancillary Orders [facility] [address] 3rd Floor, [address] [place], [place] [id number] Rinku Carrizales MD [address] [address] [email or web address] Cardiomyopathy, unspecified type Social History Tobacco Use Types Packs/Day Years [...] Info) Description 08/24/2024 Procedure Pass Echo Lab [address] [place] [address] 02/15/2025 1:00 PM EDT Office Visit [facility] [place] [address] [facility], 4th Floor, [address] [place] [address] Radha Garcia MD [address] [facility] [address] [place] [address] [email or web address] 05/03/2025 11:15 AM EST Office Visit [facility] [address] [place] [address] 3rd Floor, [address] [place] [address] Tony Sargent, DO [address] [facility] [address] [place] [address] 08/24/2025 11:15 AM EDT Appointment Echo Lab [place] [address] [place] [address] Tony Sargent, DO [address] [facility] [address] [place] [address] [email or web address] documented as of this encounter Results * DEVICE CHECK: ICD IN-PERSON PROGRAMMING?? SINGLE LEAD (07/10/2017 2:29 PM EST) Narrative Ramón Ribeiro MD, MPH - 08/01/2017 2:36 PM EDT Reason for appointment: In-office ICD interrogation HPI: Routine in-office ICD interrogation. No device related complaints. Indication for device:Cardiomyopathy Examination: Device type: ICD Desk Manager: [employer] Mode: VVI LR/UP: 40/- bpm Thresholds, impedances, and sensing stable. Mode switches: 0 High V rates: 0 Ventricular pacin% Battery: 8.9 yrs Changes: Decreased output to 3V from 4V for >2:1 safety margin and increased battery life RA RV LV Sensing 5.3mV Threshold 1.25V@.4ms Impedance 418 Normal device function. Patient to follow-up for in-office check in: 6 months Rinku Carrizales MD CV CARDIAC SERVICES ORDERABLES Final Result documented in this encounter Visit Diagnoses Diagnosis Diagnosis unknown Cardiomyopathy, unspecified type Cardiomyopathy, unspecified type documented in this encounter Care Teams Trustee Of Estate Relationship Specialty Start Date End Date Mamadou Loving DO [address] [place] [address] PCP - General 02/20/17 07/06/19 Ezra Denney NP [address] [place] [address] [place] [address] PCP - General Family Medicine 07/07/19 Seymour Ferris CNP [address] [place] [address] [email or web address] Historical LMR Provider 02/20/1705/12/21 Tony Miranda MD [address] [place] [address] Dr. [place] [address] [place] [address] [email or web address] Historical LMR Provider 02/20/17 Keyla Melton PA-C [address] [place] [address] [email or web address] Historical LMR Provider 02/20/17 05/12/21 Jamie Soto MD [address] [place], [place] [address], [place] [address] [email or web address] Historical LMR Provider 02/20/17 Mamadou Loving DO [address] [place] [address] Historical LMR Provider 02/20/17 Roger Jorgensen NP [address] [place] [address] [address] [place] [phone] Historical LMR Provider 02/20/17 2 Rinku Carrizales MD [address] [place] [address] [email or web address] Historical LMR Provider 02/20/17 documented as of this encounter Additional Source Comments The information contained in this document represents components of the legal health record. It is not the complete legal health record.[facility]
--- OUTSIDE RECORDS SUMMARY | 2025-01-04 13:03 | XMS_ITS | Encounter Summary ---
Author Organization [facility] Address [address] [place] [address] Phone Care Team Providers Care Data Management Consultant Name Role Phone Mamadou Loving DO Primary Care Provider [phone] Seymour Ferris RECRUITING TEAM LEAD Unavailable Tony Miranda MD Unavailable Keyla Melton PA-C Unavailable Jamie Soto MD Unavailable Mamadou Loving DO Unavailable Roger Jorgensen BENCH WORKER BINDING Unavailable Rinku Carrizales MD Unavailable [phone] Ezra Denney NP Primary Care Provider + Encounter Details Date Type Department Care Team (Late st Contact Info) Description 09/02/2018 Procedure Pass [facility] PERIOPERATIVE DEPT [address] [place] [address] Social History Tobacco Use Types [...] Description 08/24/2024 Procedure Pass Echo Lab [address] [place] [address] 02/15/2025 1:00 PM EDT Office Visit [facility] [place] 55 [facility], 4th Floor, [address] [place] [address] Radha Garcia MD 55 [facility] [address] [place] [address] [email or web address] 05/03/2025 11:15 AM EST Office Visit [facility] [address] 3rd Floor, [address] [place] [address] Tony Sargent [address] [address] 08/24/2025 11:15 AM EDT Appointment Echo Lab [place] [address] [place] [address] Tony Sargent DO [address] [place] [address] [place] [address] documented as of this encounter Visit Diagnoses Not on filedocumented in this encounter Care Teams Data Management Consultant Relationship Specialty Start Date End Date Mamadou Loving DO [address] [place] [address] PCP - General 02/20/17 07/06/19 Ezra Denney, NACHO [address] [facility] [place] [address] PCP - General Family Medicine 07/07/19 Seymour Ferris, MIKE [address] [place] [address] [place] [address] [email or web address] Historical LMR Provider 02/20/1705/12/21 Tony Miranda MD [address] [place] [address] [email or web address] Historical LMR Provider 02/20/17 Keyla Melton PA-C [address] [place] [address] [email or web address] Historical LMR Provider 02/20/17 05/12/21 Jamie Soto MD [address] [place] [address] [email or web address] Historical LMR Provider 02/20/17 Mamadou Loving DO [address] [place] [address] Historical LMR Provider 02/20/17 Roger Jorgensen, NACHO [address] [place] [address] [address] Historical LMR Provider 02/20/17 2 Rinku Carrizales MD [address] [place] [address] [email or web address] Historical LMR Provider 02/20/17 documented as of this encounter Additional Source Comments The information contained in this document represents components of the legal health record. It is not the complete legal health record.[facility]
--- OUTSIDE RECORDS SUMMARY | 2025-01-04 13:04 | XMS_ITS | Encounter Summary ---
Author Organization [facility] Address [address] [place] [address] Phone Care Team Providers Care Telecommunications Switch Technician Name Role Phone Mamadou Loving DO Primary Care Provider [phone] Seymour Ferris WEBSITE/BLOG EDITOR Unavailable Tony Miranda MD Unavailable Keyla Melton PA-C Unavailable Jamie Soto MD Unavailable [phone] Mamadou Loving DO Unavailable Roger Jorgensen FITNESS INSTRUCTOR Unavailable [phone] Rinku Carrizales MD Unavailable [phone] Ezra Denney NP Primary Care Provider + Encounter Details Date Type Department Care Team (Latest Contact Info) Description 07/09/2018 Ancillary Orders Non-Invasive Cardiology [address] [place] [address] Tony Miranda MD [address] [place] [address] [email or web address] Ischemic cardiomyopathy Social History Tobacco Use Types Packs/Day Years Used Date Smoking Tobacco: Never Smokeless Tobacco: Never Sex and Gender Information [...] Info) Description 08/24/2024 Procedure Pass Echo Lab [address] [place] [address] 02/15/2025 1:00 PM EDT Office [facility] [place] 55 [facility], 4th Floor, [address] [place] [address] Radha Garcia MD 55 [facility] [address] [place] [address] [email or web address] 05/03/2025 11:15 AM EST Office Visit [facility] [address] [place] [address] 3rd Floor, [address] [place] [address] Tony Sargent DO 22 [facility] [address] [place] [address] [email or web address] 08/24/2025 11:15 AM EDT Appointment Echo Lab [place] [address] [place] [address] Tony Sargent DO 22 [facility] [address] [place] [address] [email or web address] documented as of this encounter Visit Diagnoses Diagnosis Ischemic cardiomyopathy Other specified forms of chronic ischemic heart disease documented in this encounter Care Teams Telecommunications Switch Technician Relationship Specialty Start Date End Date Mamadou Loving DO 5 [place] [address] PCP - General 02/20/17 07/06/19 Ezra Denney NP [facility] [place] [address] PCP - General Family Medicine 07/07/19 Seymour Ferris, MIKE [address] [place] [address] [email or web address] Historical LMR Provider 02/20/1705/12/21 Tony Miranda MD [address] [place] [address] [email or web address] Historical LMR Provider 02/20/17 Keyla Melton PA-C [address] [place] [address] [email or web address] Historical LMR Provider 02/20/17 05/12/21 Jamie Soto MD [address] [place] [address] [email or web address] Historical LMR Provider 02/20/17 Mamadou Loving DO [address] [place] [address] Historical LMR Provider 02/20/17 Roger Jorgensen, NACHO [address] [place] [address] [phone] Historical LMR Provider 02/20/17 2 Rinku Carrizales MD [address] [place] [address] [email or web address] Historical LMR Provider 02/20/17 documented as of this encounter Additional Source Comments The information contained in this document represents components of the legal health record. It is not the complete legal health record.[facility]
--- OUTSIDE RECORDS SUMMARY | 2025-01-04 13:04 | XMS_ITS | Encounter Summary ---
Author Organization [facility] Address [address] [place] [address] Phone Care Team Providers Care Ecologist Name Role Phone Mamadou Loving DO Primary Care Provider [phone] Seymour Ferris INDUSTRIAL HYGIENE MANAGER Unavailable Tony Miranda MD Unavailable Keyla Melton PA-C Unavailable Jamie Soto MD Unavailable Mamadou Loving DO Unavailable Roger Jorgensen POWER PLANT ELECTRICIAN Unavailable Rinku Carrizales MD Unavailable [phone] Ezra Denney NP Primary Care Provider + Encounter Details Date Type Department Care Team (Late st Contact Info) Description 02/22/2017 Ancillary [facility] [address] [place] [address] Rinku Carrizales MD [address] [place] [address] [email or web address] Social History Tobacco Use Types Packs/Day Years [...] Info) Description 08/24/2024 Procedure Pass Echo Lab [address] [place] [address] 02/15/2025 1:00 PM EDT Office Visit [facility] Allergy [place] 55 [facility], 4th Floor, [address] [place] [address] Radha Garcia MD 55 [facility] [address] [place] [address] [email or web address] 05/03/2025 11:15 AM EST Office Visit [facility] [address] [place] [address] 3rd Floor, [address] [place] [address] Tony Sargent [address] [address] 08/24/2025 11:15 AM EDT Appointment Echo Lab [address] [place] [address] Tony Sargent DO [address] [place] [address] [place] [address] documented as of this encounter Visit Diagnoses Not on filedocumented in this encounter Care Teams Ecologist Relationship Specialty Start Date End Date Mamadou Loving DO [address] [place] [address] PCP - General 02/20/17 07/06/19 Ezra Denney NP [facility] [place] [address] PCP - General Family Medicine 07/07/19 Seymour Ferris, MIKE [address] [place] [address] [email or web address] Historical LMR Provider 02/20/1705/12/21 Tony Miranda MD [address] [place] [address] [email or web address] Historical LMR Provider 02/20/17 Keyla Melton PA-C [address] [place] [address] [email or web address] Historical LMR Provider 02/20/17 05/12/21 Jamie Soto MD [address] [place] [address] [email or web address] Historical LMR Provider 02/20/17 Mamadou Loving DO [address] [place] [address] Historical LMR Provider 02/20/17 Roger Jorgensen NP [address] [place] [address] [address] Historical LMR Provider 02/20/17 2 Rinku Carrizales MD [address] [place] [address] [email or web address] Historical LMR Provider 02/20/17 documented as of this encounter Additional Source Comments The information contained in this document represents components of the legal health record. It is not the complete legal health record.[facility]
--- OUTSIDE RECORDS SUMMARY | 2025-01-04 13:04 | XMS_ITS | Encounter Summary ---
Author Organization [facility] Address [address] [place] [address] Phone Care Team Providers Care Cost Report Clerk Name Role Phone Seymour Ferris Christajacky INDEPENDENT LIVING INSTRUCTOR Unavailable Tony Miranda MD Unavailable [phone] Keyla Melton PA-C Unavailable Jamie Soto MD Unavailable [phone] Mamadou Loving DO Unavailable Roger Jorgensen CLEARANCE COORDINATOR Unavailable Rinku Carrizales MD Unavailable [phone] Ezra Denney CLEARANCE COORDINATOR Primary Care Provider + Encounter Details Date Type Department Care Team (Late st Contact Info) Description 07/24/2020 Procedure Pass Non-Invasive Cardiology [address] [place] [address] Social History Tobacco Use Types Packs/Day Years [...] Info) Description 08/24/2024 Procedure Pass Echo Lab [address] [place] [address] 02/15/2025 1:00 PM EDT Office [place] [facility] [place] 55 [facility] Building, 4th Floor, [address] [place] [address] Radha Garcia MD 55 [place] [facility] [address] [place] [address] [email or web address] 05/03/2025 11:15 AM EST Office Visit [facility] [address] 3rd Floor, [address] [place] [address] Tony Sargent, [address] [address] 08/24/2025 11:15 AM EDT Appointment Echo Lab [place] [address] [place] [address] Tony Sargent, [address] [place] [address] documented as of this encounter Visit Diagnoses Not on filedocumented in this encounter Care Teams Cost Report Clerk Relationship Specialty Start Date End Date Ezra Denney NP [address] [place] [address] PCP - General Family Medicine 07/07/19 Seymour Ferris, MIKE [address] [place] [address] Historical LMR Provider 02/20/1705/12/21 Tony Miranda MD [address] [place] [address] [email or web address] Historical LMR Provider 02/20/17 Keyla Melton PA-C [address] [place] [address] [email or web address] Historical LMR Provider 02/20/17 05/12/21 Jamie Soto MD [address] [place] [address] [email or web address] Historical LMR Provider 02/20/17 Mamadou Loving DO [address] [place] [address] Historical LMR Provider 02/20/17 Roger Jorgensen NP [address] [place] [address] [address] [place] [address] Historical LMR Provider 02/20/17 2 Rinku Carrizales MD [address] [place] [address] [email or web address] Historical LMR Provider 02/20/17 documented as of this encounter Additional Source Comments The information contained in this document represents components of the legal health record. It is not the complete legal health record.[facility]
--- OUTSIDE RECORDS SUMMARY | 2025-01-04 13:04 | XMS_ITS | Encounter Summary ---
Author Organization [facility] Address [address] [place] [address] Care Team Providers Care Construction Engineering Manager Name Role Phone Mamadou Loving Primary Care Provider [phone] Zackary Martinez MD Unavailable Encounter Details Date Type Department Care Team (Late st Contact Info) Description 03/26/2017 Abstract [facility]ascular & Endovascular Surgery [place] [address] [place] [address] Trisha Vazquez, RN [address] [place] [address] Social History Tobacco Use Types Packs/Day Years Used Date Smoking Tobacco: Former Sex and Gender Information Value Date Recorded Sex Assigned at Not on file Legal Sex Male 2:59 PM EST Gender Identity Not on file Sexual Orientation Not on file documented as of this encounter Plan of Treatment Not on file documented as of this encounter Visit Diagnoses Not on filedocumented in this encounter Care Teams Construction Engineering Manager Relationship Specialty Start Date End Date Mamadou Loving [address] [place] [address] [place] [address] PCP - General Medicine Hospitalist 03/26/17 Zackary Martinez MD [address] [place] [address] [place] [address] Cardiovascular Disease 04/03/17 documented as of this encounter
--- OUTSIDE RECORDS SUMMARY | 2025-01-04 13:04 | XMS_ITS | Encounter Summary ---
Author Organization [facility] Address [address] [place] [address] Phone Care Team Providers Care Rn Internal Medicine Name Role Phone Mamadou Loving DO Primary Care Provider [phone] Seymour Ferris CHILDREN'S AUTHOR Unavailable Tony Miranda MD Unavailable Keyla Melton PA-C Unavailable Jamie Soto MD Unavailable [phone] Mamadou Loving DO Unavailable Roger Jorgensen RESEARCH PROFESSIONAL Unavailable [phone] Rinku Carrizales MD Unavailable [phone] Ezra Denney NP Primary Care Provider + Encounter Details Date Type Department Care Team (Latest Contact Info) Description 04/08/2017 Ancillary Orders Non-Invasive Cardiology [address] [place] [address] Tony Miranda MD [address] [place] [address] [email or web address] Ischemic cardiomyopathy Social History Tobacco Use Types [...] Info) Description 08/24/2024 Procedure Pass Echo Lab [address] [place] [address] 02/15/2025 1:00 PM EDT Office Visit [facility] Allergy [place] 55 [facility], 4th Floor, [address] [place] [address] Radha Garcia MD 55 [facility] [address] [place] [address] [email or web address] 05/03/2025 11:15 AM EST Office Visit [facility] [address] [place] [address] 3rd Floor, [address] [place] [address] Tony Sargent, DO [address] [place] [address] [place] [address] 08/24/2025 11:15 AM EDT Appointment Echo Lab [address] [place] [address] Tony Sargent, [address] [place] [address] [email or web address] documented as of this encounter Results * DEVICE CHECK: ICD IN-HOME INTERROGATION (04/08/2017 11:28 AM EST) Narrative Tony Miranda MD - 04/08/2017 8:00 PM EST Reason for appointment: Remote ICD interrogation HPI: Routine 3 month remote ICD interrogation. No device related complaints. Indication for device ICM. Examination: Device type: ICD Technician Test Systems: ODETTE Thresholds, impedances, and sensing stable. Mode switches: 0 High V rates: 0 Alerts: 0 Ventricular pacing 1.7 % of the time. Battery: Longevity is stable 9.2 yrs . Normal device function. Case reviewed with supervising physician. Patient to follow-up for continued monitoring. us Tony Miranda MD CV CARDIAC SERVICES ORDER LILA Final Result documented in this encounter Visit Diagnoses Diagnosis Diagnosis unknown Ischemic cardiomyopathy Other specified forms of chronic ischemic heart disease Ischemic cardiomyopathy Other specified forms of chronic ischemic heart disease documented in this encounter Care Teams Rn Internal Medicine Relationship Specialty Start Date End Date Mamadou Loving DO [address] [place] [address] PCP - General 02/20/17 07/06/19 Ezra Denney NP [facility] [place] [address] PCP - General Family Medicine 07/07/19 Seymour Ferris CNP [address] May [address] [place] [address] [email or web address] Historical LMR Provider 02/20/1705/12/21 Tony Miranda MD [address] [place] [address] Dr. May [address] [place] [address] [email or web address] Historical LMR Provider 02/20/17 Keyla Melton PA-C [address] [place] [address] Historical LMR Provider 02/20/17 05/12/21 Jamie Soto MD [address] [place] [address], [facility] [address] [place] [address] Historical LMR Provider 02/20/17 Mamadou Loving DO [address] [place] [address] Historical LMR Provider 02/20/17 Roger Jorgensen NP [address] [place] [phone] Historical LMR Provider 02/20/17 2 Rinku Carrizales MD [address] [address] [email or web address] Historical LMR Provider 02/20/17 documented as of this encounter Additional Source Comments The information contained in this document represents components of the legal health record. It is not the complete legal health record.[facility]
--- OUTSIDE RECORDS SUMMARY | 2025-01-04 13:04 | XMS_ITS | Encounter Summary ---
Author Organization [facility] Address [address] [place] [address] [place] [address] Phone Care Team Providers Care Child And Family Services Worker Name Role Phone Mamadou Loving DO Primary Care Provider [phone] Seymour Ferris PIPE RECOVERY SPECIALIST Unavailable Tony Miranda MD Unavailable Keyla Melton PA-C Unavailable Jamie Soto MD Unavailable Mamadou Loving DO Unavailable Roger Jorgensen SURGERY TEACHER Unavailable Rinku Carrizales MD Unavailable [phone] Ezra Denney NP Primary Care Provider + Encounter Details Date Type Department Care Team (Latest Contact Info) Description 02/22/2017 Ancillary Orders [facility] [address] 3rd Floor, [address] [place], [place] [phone] Rinku Carrizales MD [address] [place] [address] [email or web address] Diagnosis unknown Social History Tobacco Use Types Packs/Day Years [...] Info) Description 08/24/2024 Procedure Pass Echo Lab [address] [place] [address] 02/15/2025 1:00 PM EDT Office [place] [facility] [place] 55 [facility], 4th Floor, [address] [place] [address] Radha Garcia MD 55 [facility] [address] [place] [address] [email or web address] 05/03/2025 11:15 AM EST Office Visit [facility] [address] [place] [address] 3rd Floor, [address] [place] [address] Tony Sargent DO [address] [place] [address] [address] [place] [address] 08/24/2025 11:15 AM EDT Appointment Echo Lab [address] [place] [address] Tony Sargent DO [address] [place] [address] [address] [place] [address] [email or web address] documented as of this encounter Visit Diagnoses Diagnosis Diagnosis unknown documented in this encounter Care Teams Child And Family Services Worker Relationship Specialty Start Date End Date Mamadou Loving DO [address] [place] [address] PCP - General 02/20/17 07/06/19 Ezra Denney NP [facility] [place] [address] PCP - General Family Medicine 07/07/19 Seymour Ferris, MIKE [address] [place] [address] [email or web address] Historical LMR Provider 02/20/1705/12/21 Tony Miranda MD [address] May [address] [place] [address] [email or web address] Historical LMR Provider 02/20/17 Keyla Melton PA-C [address] [place] [address] [email or web address] Historical LMR Provider 02/20/17 05/12/21 Jamie Soto MD [address] [place] [address] [email or web address] Historical LMR Provider 02/20/17 Mamadou Loving DO [address] [place] [address] Historical LMR Provider 02/20/17 Roger Jorgensen NP [address] [place] [address] [address] Historical LMR Provider 02/20/17 2 Rinku Carrizales MD [address] [place] [address] [email or web address] Historical LMR Provider 02/20/17 documented as of this encounter Additional Source Comments The information contained in this document represents components of the legal health record. It is not the complete legal health record.[facility]
--- OUTSIDE RECORDS SUMMARY | 2025-01-04 13:05 | XMS_ITS | Encounter Summary ---
Author Organization [facility] Address [address] [place] [address] Phone Care Team Providers Care Linoleum Floor Installer Name Role Phone Seymour Ferris Christajacky ASPNET DEVELOPER Unavailable Tony Miranda MD Unavailable [phone] Keyla Melton PA-C Unavailable Jamie Soto MD Unavailable Mamadou Loving DO Unavailable Roger Jorgensen AIRCRAFT ENGINE MECHANIC OVERHAUL Unavailable Rinku Carrizales MD Unavailable [phone] Ezra Denney AIRCRAFT ENGINE MECHANIC OVERHAUL Primary Care Provider + Encounter Details Date Type Department Care Team (Late st Contact Info) Description 03/14/2020 Procedure Pass Non-Invasive Cardiology [address] [place] [address] Social History Tobacco Use Types [...] Info) Description 08/24/2024 Procedure Pass Echo Lab [address] [place] [address] 02/15/2025 1:00 PM EDT Office Visit [facility] [place] 55 [facility], 4th Floor, [address] [place] [address] Radha Garcia MD 55 [facility] [address] [place] [address] [email or web address] 05/03/2025 11:15 AM EST Office Visit [facility] [address] 3rd Floor, [address] [place] [address] Tony Sargent, [address] [address] 08/24/2025 11:15 AM EDT Appointment Echo Lab [place] [address] [place] [address] Tony Sargent, DO [address] [place] [address] [place] [address] documented as of this encounter Visit Diagnoses Not on filedocumented in this encounter Care Teams Linoleum Floor Installer Relationship Specialty Start Date End Date Ezra Denney, NACHO 1963 [facility] [address] PCP - General Family Medicine 07/07/19 Seymour Ferris, MIKE [address] [place] [address] [place] [address] Historical LMR Provider 02/20/1705/12/21 Tony Miranda MD [address] [address] [email or web address] Historical LMR Provider 02/20/17 Keyla Melton PA-C [address] [place] [address] [email or web address] Historical LMR Provider 02/20/17 05/12/21 Jamie Soto MD [address] [place] [address] [email or web address] Historical LMR Provider 02/20/17 Mamadou Loving DO [address] [place] [address] Historical LMR Provider 02/20/17 Roger Jorgensen NP [address] [place] [address] [address] Historical LMR Provider 02/20/17 2 Rinku Carrizales MD [address] [place] [address] [email or web address] Historical LMR Provider 02/20/17 documented as of this encounter Additional Source Comments The information contained in this document represents components of the legal health record. It is not the complete legal health record.[facility]
--- OUTSIDE RECORDS SUMMARY | 2025-01-04 13:05 | XMS_ITS | Encounter Summary ---
Author Organization [facility] Address [address] [place] [address] Phone Care Team Providers Care Diploma Maker Name Role Phone Mamadou Loving DO Primary Care Provider [phone] Seymour Ferris PACKER Unavailable Tony Miranda MD Unavailable Keyla Melton PA-C Unavailable Jamie Soto MD Unavailable Mamadou Loving DO Unavailable Roger Jorgensen BOOT AND SHOE LABORER Unavailable Rinku Carrizales MD Unavailable [phone] Ezra Denney NP Primary Care Provider + Encounter Details Date Type Department Care Team (Late st Contact Info) Description 07/09/2018 Ancillary [facility] [address] [place] [address] Tony Miranda MD [address] [place] [address] [place] [address] [email or web address] Social History Tobacco Use Types Packs/Day Years [...] Info) Description 08/24/2024 Procedure Pass Echo Lab [address] [place] [address] 02/15/2025 1:00 PM EDT Office Visit [facility] [place] 55 [facility], 4th Floor, [address] [place] [address] Radha Garcia MD 55 [facility] [address] [place] [address] [email or web address] 05/03/2025 11:15 AM EST Office Visit [facility] [address] [place] [address] 3rd Floor, [address] [place] [address] Tony Sargent, DO 22 [facility] [address] [place] [address] 08/24/2025 11:15 AM EDT Appointment Echo Lab [address] [place] [address] Tony Sargent DO 22 [facility] [address] [place] [address] documented as of this encounter Visit Diagnoses Not on filedocumented in this encounter Care Teams Diploma Maker Relationship Specialty Start Date End Date Mamadou Loving DO 5 [place] [address] PCP - General 02/20/17 07/06/19 Ezra Denney NP [facility] [place] [address] PCP - General Family Medicine 07/07/19 JosySeymour, MIKE [address] [place] [address] [place] [address] [email or web address] Historical LMR Provider 02/20/1705/12/21 Tony Miranda MD [address] [place] [address] [place] [address] [email or web address] Historical LMR Provider 02/20/17 Keyla Melton PA-C [address] [place] [address] [email or web address] Historical LMR Provider 02/20/17 05/12/21 Jamie Soto MD [address] [place] [address] [email or web address] Historical LMR Provider 02/20/17 Mamadou Loving DO [address] [place] [address] Historical LMR Provider 02/20/17 Roger Jorgensen NP [address] [place] [address] [address] Historical LMR Provider 02/20/17 2 Rinku Carrizales MD [address] [place] [address] [email or web address] Historical LMR Provider 02/20/17 documented as of this encounter Additional Source Comments The information contained in this document represents components of the legal health record. It is not the complete legal health record.[facility]
--- OUTSIDE RECORDS SUMMARY | 2025-01-04 13:05 | XMS_ITS | Encounter Summary ---
Author Organization [facility] Address [address] [place] [address] Phone Care Team Providers Care Can Coverer Name Role Phone Seymour Ferris R D INTERNSHIP Unavailable Tony Miranda MD Unavailable Keyla Melton PA-C Unavailable [phone] Jamie Soto MD Unavailable Mamadou Loving DO Unavailable Roger Jorgensen CREATIVE PROJECT MANAGER Unavailable [phone] Rinku Carrizales MD Unavailable [phone] Ezra Denney CREATIVE PROJECT MANAGER Primary Care Provider + Encounter Details Date Type Department Care Team (Latest Contact Info) Description 03/14/2020 Ancillary Orders Non-Invasive Cardiology [address] [place] [id number] Tony Miranda MD [address] [place] [address] [email or web address] Ischemic cardiomyopathy Social History Tobacco Use Types [...] Description 08/24/2024 Procedure Pass Echo Lab [address] [place] [address] 02/15/2025 1:00 PM EDT Office Visit [facility] [place] 55 [facility], 4th Floor, [address] [place] [address] Radha Garcia MD 55 [facility] [address] [place] [address] [email or web address] 05/03/2025 11:15 AM EST Office Visit [facility] [address] [place] [address] 3rd Floor, [address] [place] [address] Tony Sargent, [address] [place] [address] 08/24/2025 11:15 AM EDT Appointment Echo Lab [address] [place] [address] Tony Sargent, DO 22 [facility] [address] [place] [address] documented as of this encounter Results * DEVICE CHECK: ICD IN-PERSON PROGRAMMING??SINGLE LEAD PLUS HFM IMPEDANCE (07/24/2020 5:04 PM EDT) Narrative Clifford Ley MD - 07/24/2020 9:41 PM EDT Reason for appointment: In-office ICD interrogation HPI: Routine in-office ICD interrogation curing visit with Dr. Soto, using iterative adjustment to test the function of the device and select optimal permanent programmed values. No device related complaints. Indication for device: Ischemic caridomyopathy Examination: Device type: ICD Pilot Submersible: Medtronic Mode: VVI LRL/URL: 40/- bpm Thresholds, impedances, and sensing stable. High V rates: 0 Alerts: 0 Ventricular pacin.1% Battery: 5.3 years Thoracic impedence: Some fluctuation over the fall and winter, now above baseline. Renard states he had some chest congestion during that time, denies SOB or weight gain. RA RV LV Sensing 6.8mV Threshold 1.25V@.4ms Impedance 456 ohms Additional comments or changes: Device functioning appropriately. Normal device function. Patient to follow-up for in-office check in: 6 months, 3 months remote Report prepared by Iker Chan RN Procedure Note Clifford Ley MD - 07/24/2020 Reason for appointment: In-office ICD interrogation HPI: Routine in-office ICD interrogation curing visit with Dr. Soto,using iterative adjustment to test the function of the device and selectoptimal permanent programmed values. No device related complaints. Indication for device: Ischemiccaridomyopathy Examination: Device type: ICD Pilot Submersible: Medtronic Mode: VVI LRL/URL: 40/- bpm Thresholds, impedances, and sensing stable. High V rates: 0 Alerts: 0 Ventricular pacin.1% Battery: 5.3 years Thoracic impedence: Some fluctuation over the fall and winter, now abovebaseline. Renard states he had some chest congestion during that time,denies SOB or weight gain. RA RV LV Sensing 6.8mV Threshold 1.25V@.4ms Impedance 456 ohms Additional comments or changes: Device functioning appropriately. Normal device function. Patient to follow-up for in-office check in: 6months, 3 months remote Report prepared by Iker Chan RN Tony Miranda MD CV CARDIAC SERVICES ORDER LILA Final Result documented in this encounter Visit Diagnoses Diagnosis Ischemic cardiomyopathy Other specified forms of chronic ischemic heart disease Ischemic cardiomyopathy Other specified forms of chronic ischemic heart disease documented in this encounter Care Teams Can Coverer Relationship Specialty Start Date End Date Ezra Denney, NACHO [facility] [place] [address] PCP - General Family Medicine 07/07/19 Seymour Ferris, MIKE [address] [place] [address] [place] [address] [email or web address] Historical LMR Provider 02/20/1705/12/21 Tony Miranda MD [address] [place] [address] [place] [address] [email or web address] Historical LMR Provider 02/20/17 Keyla Melton PA-C [address] [place] [address] [email or web address] Historical LMR Provider 02/20/17 05/12/21 Jamie Soto MD [address] [place] [address] [email or web address] Historical LMR Provider 02/20/17 Mamadou Loving DO [address] [place] [address] Historical LMR Provider 02/20/17 Roger Jorgensen, NACHO [address] [place] [address] [address] Historical LMR Provider 02/20/17 2 Rinku Carrizales MD [address] [place] [address] [email or web address] Historical LMR Provider 02/20/17 documented as of this encounter Additional Source Comments The information contained in this document represents components of the legal health record. It is not the complete legal health record.[facility]
--- OUTSIDE RECORDS SUMMARY | 2025-01-04 13:05 | XMS_ITS | Encounter Summary ---
Author Organization [facility] Address [address] [place] [address] Phone Care Team Providers Care Assembler Final Name Role Phone Mamadou Loving DO Primary Care Provider [phone] Seymour Ferris NEUROPATHOLOGIST Unavailable Tony Miranda MD Unavailable Keyla Melton PA-C Unavailable [phone] Jamie Soto MD Unavailable Mamadou Loving DO Unavailable Roger Jorgensen REFRIGERATOR CAR ICER Unavailable [phone] Rinku Carrizales MD Unavailable [phone] Ezra Denney NP Primary Care Provider + Encounter Details Date Type Department Care Team (Late st Contact Info) Description 02/22/2017 Ancillary Orders Non-Invasive Cardiology [address] [place] [address] Tony Miranda MD [address] [place] [address] [email or web address] Diagnosis unknown Social History Tobacco Use Types [...] Description 08/24/2024 Procedure Pass Echo Lab [address] [place] [address] 02/15/2025 1:00 PM EDT Office Visit [facility] [place] 55 [facility], 4th Floor, [address] [place] [address] Radha Garcia MD 55 [facility] [address] [place] [address] [email or web address] 05/03/2025 11:15 AM EST Office Visit [facility] [address] [place] [address] 3rd Floor, [address] [place] [address] Tony Sargent 22 [facility] [address] [place] [address] 08/24/2025 11:15 AM EDT Appointment Echo Lab [address] [place] [address] Tony Sargent DO 22 [facility] [address] [place] [address] [email or web address] documented as of this encounter Visit Diagnoses Diagnosis Diagnosis unknown documented in this encounter Care Teams Assembler Final Relationship Specialty Start Date End Date Mamadou Loving DO [address] [place] [address] PCP - General 02/20/17 07/06/19 Ezra Denney NP [address] [place] [address] [place] [address] PCP - General Family Medicine 07/07/19 Seymour Ferris, MIKE [address] [place] [address] [place] [address] [email or web address] Historical LMR Provider 02/20/1705/12/21 Tony Miranda MD [address] [place] [address] [place] [address] [email or web address] Historical LMR Provider 02/20/17 Keyla Melton PA-C [address] [place] [address] [email or web address] Historical LMR Provider 02/20/17 05/12/21 Jamie Soto MD [address] [place] [address] [email or web address] Historical LMR Provider 02/20/17 Mamadou Loving DO [address] [place] [address] Historical LMR Provider 02/20/17 Roger Jorgensen NP [address] [place] [address] [address] Historical LMR Provider 02/20/17 2 Rinku Carrizales MD [address] [place] [address] [email or web address] Historical LMR Provider 02/20/17 documented as of this encounter Additional Source Comments The information contained in this document represents components of the legal health record. It is not the complete legal health record.[facility]
--- OUTSIDE RECORDS SUMMARY | 2025-01-04 13:05 | XMS_ITS | Encounter Summary ---
Author Organization [facility] Address [address] [place] [address] Phone Care Team Providers Care Stamp Maker Name Role Phone Tony Miranda MD Unavailable Jamie Soto MD Unavailable Rinku Carrizales MD Unavailable [phone] Ezra Denney DOPING SUPERVISOR Primary Care Provider + Encounter Details Date Type Department Care Team (Late st Contact Info) Description 02/14/2023 Procedure Pass Non-Invasive Cardiology [address] [place] [address] Social History Tobacco Use Types Packs/Day Years Used Date Smoking Tobacco: Former Cigarettes Cigars Smokeless Tobacco: Never Comments:occasional cigars Alcohol Use Standard Drinks/Week Comments Not Currently 0 (1 standard drink = 0.6 oz pure alcohol) recovering alcoholic, sober since 1997 Education Answer Date Recorded Are you interested in more education? Not on josi e 08/31/2022 Are you concerned about learning? Not on file 08/31/2022 No 08/31/2022 No 08/31/2022 Digital Access Answer Date Recorded No 09/28/2022 No 09/28/2022 Reliable internet access at home? Not on file 09/28/2022 Device with a working camera? Not on file Sex and Gender Information Value Date Recorded Sex Assigned at Male 02/18/2023 7:50 AM EDT Legal Sex Male 5:07 PM EST Gender Identity Male 02/18/2023 7:50 AM EDT Sexual Orientation Straight 02/18/2023 7: 50 AM EDT documented as of this encounter Plan of Treatment Upcoming Encounters Date Type Department Care Team (Late st Contact Info) Description 08/24/2024 Procedure Pass Echo Lab [address] [place] [address] 02/15/2025 1:00 PM EDT Office Visit [facility] [place] 55 [facility], 4th Floor, [address] [place] [address] Radha Garcia MD 55 [facility] [address] [place] [address] [email or web address] 05/03/2025 11:15 AM EST Office Visit [facility] [address] 3rd Floor, [address] [place] [address] Tony Sargent, [address] [address] 08/24/2025 11:15 AM EDT Appointment Echo Lab [place] [address] [place] [address] Tony Sargent, DO [address] [place] [address] [place] [address] documented as of this encounter Visit Diagnoses Not on filedocumented in this encounter Care Teams Stamp Maker Relationship Specialty Start Date End Date Ezra Denney NP [address] [facility] [place] [address] PCP - General Family Medicine 07/07/19 Tony Miranda MD [email or web address] Historical LMR Provider 02/20/17 Jamie Soto MD [address] [place] [address], [facility] [address] [place] [address] [email or web address] Historical LMR Provider 02/20/17 Rinku Carrizales MD [address] [place] [address] [email or web address] Historical LMR Provider 02/20/17 documented as of this encounter Additional Source Comments The information contained in this document represents components of the legal health record. It is not the complete legal health record.[facility]
--- OUTSIDE RECORDS SUMMARY | 2025-01-04 13:05 | XMS_ITS | Encounter Summary ---
Author Organization [facility] Address [address] [place] [address] Phone Care Team Providers Care Airport Refueling Handler Name Role Phone Mamadou Loving DO Primary Care Provider [phone] Seymour Ferris MARBLE CUTTER OPERATOR Unavailable Tony Miranda MD Unavailable Keyla Melton PA-C Unavailable Jamie Soto MD Unavailable Mamadou Loving DO Unavailable Roger Jorgensen BATTER MIXER Unavailable Rinku Carrizales MD Unavailable [phone] Ezra Denney BATTER MIXER Primary Care Provider + Encounter Details Date Type Department Care Team (Late st Contact Info) Description 02/22/2017 Ancillary [facility] [address] [place] [address] Tony Miranda MD [address] [place] [address] [place] [address] [email or web address] Social History Tobacco Use Types Packs/Day Years [...] Info) Description 08/24/2024 Procedure Pass Echo Lab [address] [place] [address] 02/15/2025 1:00 PM EDT Office Visit [facility] [place] 55 [facility], 4th Floor, [address] [place] [address] Radha Garcia MD 55 [facility] [address] [place] [address] [email or web address] 05/03/2025 11:15 AM EST Office Visit [facility] [address] [place] [address] 3rd Floor, [address] [place] [address] Tony Sargent [address] [place] [address] 08/24/2025 11:15 AM EDT Appointment Echo Lab [address] [place] [address] Tony Sargent [address] [place] [address] documented as of this encounter Visit Diagnoses Not on filedocumented in this encounter Care Teams Airport Refueling Handler Relationship Specialty Start Date End Date Mamadou Loving DO [address] [place] [address] PCP - General 02/20/17 07/06/19 Ezra Denney NP [employer] [facility] [place] [address] PCP - General Family Medicine 07/07/19 Seymour Ferris, MIKE [address] [place] [address] [place] [address] [email or web address] Historical LMR Provider 02/20/1705/12/21 Tony Miranda MD [address] [place] [address] [place] [address] [email or web address] Historical LMR Provider 02/20/17 Keyla Melton PA-C [address] [place] [address] [email or web address] Historical LMR Provider 02/20/17 05/12/21 Jamie Soto MD [address] [place] [address] [email or web address] Historical LMR Provider 02/20/17 Mamadou Loving DO [address] [place] [address] Historical LMR Provider 02/20/17 Roger Jorgensen NP [address] [place] [address] [address] Historical LMR Provider 02/20/17 2 Rinku Carrizales MD [address] [place] [address] [email or web address] Historical LMR Provider 02/20/17 documented as of this encounter Additional Source Comments The information contained in this document represents components of the legal health record. It is not the complete legal health record.[facility]
--- OUTSIDE RECORDS SUMMARY | 2025-01-04 13:05 | XMS_ITS | Encounter Summary ---
Author Organization [facility] Address [address] [facility] [place] [address] Phone Care Team Providers Care Welfare Visitor Name Role Phone Tony Miranda MD Unavailable Jamie Soto MD Unavailable Rinku Carrizales MD Unavailable [phone] Ezra Denney NP Primary Care Provider + Reason for Referral * MRI/CAT Scan - Closed Specialty Diagnoses / Procedures Referred By Navneet t Referred To Contact Radiology Diagnoses Chest pain on breathing Procedures NC Myocardial Perfusion Pharmacologic Stress Multiple NC Myocardial Perfusion Exercise Multiple Tony Sargent DO Phone: tel: fax: [email or web address] Referral ID Status Reason Start Date Expiration Date Visits Re quested Visits Authorized [id number] Closed 12/10/2023 1 1 Encounter Details Date Type Department Care Team (Latest Contact Info) Description 01/12/2024 Ancillary Orders [facility] [address] [facility] 3rd Floor, [address] [place], [place] [id number] Tony Sargent DO [address] [facility] [address] [place], [place] [id number] [email or web address] Chest pain on breathing (Primary Dx); Ischemic cardiomyopathy; Paroxysmal atrial fibrillation; Acute on chronic combined systolic and diastolic congestive heart failure; Mixed hyperlipidemia Social History Tobacco Use Types Packs/Day Years [...] Description 08/24/2024 Procedure Pass Echo Lab [address] [place] [address] 02/15/2025 1:00 PM EDT Office Visit [facility] Allergy [address], 4th Floor, [address] [place] [address] Radha Garcia MD [address] [facility] [address] [place] [address] [email or web address] 05/03/2025 11:15 AM EST Office Visit [facility] [address] [place] [address] 3rd Floor, [address] [place] [address] Tony Sargent DO [address] [facility] [address] [place] [address] [email or web address] 08/24/2025 11:15 AM EDT Appointment Echo Lab [address] [place] [address] Tony Sargent DO [address] [facility] [address] [place] [address] [email or web address] documented as of this encounter Results * NC Myocardial Perfusion Pharmacologic Stress Multiple (01/12/2024 1:42 PM EDT) Max Predicted Heart Rate 145 bpm Stress/rest perfusion ratio 1.20 Nuc Stress EF 40 % SNMDIAVOL 255.0 mL SNMSYSVOL 153.0 mL Nuc Rest EF 40 % RNMDIAVOL 222.0 mL RNMSYSVOL 134.0 mL Anatomical Region Laterality Modality Heart, Vascular Ultrasound Narrative 01/12/2024 4:12 PM EDT Abnormal myocardial perfusion imaging. The left ventricle is severely dilated. LVEF is approximated to be 40%. There are 2 significant perfusion defects: 1. There is a large perfusion defect involving the entire inferior and lateral reinoso. This is fixed at the base and reversible in the mid to distal segments. 2. There is a medium in size, severe intensity fixed perfusion defect in the basal to mid anterolateral wall without any reversibility. There is reduced thickening in both of these territories. TID ratio was abnormal at 1.21. Abnormal findings communicated to the ordering physician, Dr. Sargent. Stress Findings NUCLEAR REPORT: TYPE OF STUDY: Myocardial Perfusion Imaging after a Sitting Regadenoson protocol with gated SPECT. PROTOCOL USED: One day Regadenoson rest-stress protocol in the supine and prone position. Images were obtained in gated tomographic technique. Images were processed in SPECT format, reconstructed tomographically and compared [id number] in short axis, horizontal long axis and vertical long axis. DOSE: Technetium 99m Sestamibi 7.2 mCi injected intravenously in the right arm antecubital vein at rest on 01/12/2024 with post injection scan time of 60 minutes. Technetium 99m Sestamibi 21.7 mCi injected intravenously in the right arm antecubital vein after Regadenoson infusion on 01/12/2024 with post injection scan time of 40 minutes. Overall image quality is good. Diaphragmatic attenuation is present. No motion artifact is present. ECG STRESS REPORT: SITTING REGADENOSON STUDY HEIGHT: 5'-9 WEIGHT: 208 LB BMI: 30.7 The Nuclear Stress Test was performed as a pharmaceutical stress test due to knee pain. Renard Bundy received 0.4 mg of Regadenoson while sitting on a chair. Regadenoson was given IV push over 10 seconds as per protocol by Rosemarie Jaramillo (NACHO),immediately followed by injection of Tc99m Sestamibi by Jose Flanagan, the pet technologist. 1. EKG - Baseline EKG showed sinus rhythm, IVCD, nonspecific ST-T wave abnormalities. 2. SYMPTOMS -No chest pain 3. PHYSIOLOGY - Resting HR was 51 bpm. After Lexiscan injection, HR 68 bpm 4. ARRHYTHMIAS -frequent isolated PVCs Conclusion -The EKG portion of this test was nondiagnostic due to baseline ST-T wave abnormalities. There were no symptoms reported concerning for angina. Nuclear images pending and will be reported separately. See attached stress report for full details. Rosemarie Jaramillo NP Stress Function Defect Left ventricular global function is moderately reduced during stress. Stress ejection fraction is 40%. The stress end diastolic cavity size is severely enlarged. Stress end diastolic size: 255.0 mL. The stress end systolic cavity size is severely enlarged. Stress end systolic size: 153.0 mL. Rest Function Defect Left ventricular global function is moderately reduced at rest. Resting ejection fraction was 40%. The rest end diastolic cavity size is severely enlarged. Rest end diastolic size: 222.0 ml. The rest end systolic cavity size is severely enlarged. Rest end systolic size: 134.0 mL. Nuclear Prior Study There is no prior study available for comparison. Nuclear Ancillary Finding There is no evidence of transient ischemic dilation (TID). The TID ratio is 1.20, which is normal. Perfusion Scoring Resting Summed Score: 26 Percent Normal: 38.24% Absence of uptake in the following segments: mid inferolateral. Severe count reduction in the following segments: basal inferior, basal inferolateral, basal anterolateral, mid inferior, mid anterolateral and apical lateral. Moderate count reduction in the following segments: basal inferoseptal. Mild count reduction in the following segments: basal anteroseptal and apical inferior. All other segments are normal. SUPINE IMAGING REST Perfusion Scoring Stress Summed Score: 34 Percent Normal: 50.00% Absence of uptake in the following segments: mid inferolateral and mid anterolateral. Severe count reduction in the following segments: basal inferior, basal inferolateral, basal anterolateral, mid inferior, apical inferior and apical lateral. Moderate count reduction in the following segments: basal anterior, mid anterior and apical anterior. Mild count reduction in the following segments: basal inferoseptal and apex. All other segments are normal. PRONE IMAGING STRESS Perfusion Scores: SRS Score: 26 Percentage Abnormal: 38.24% Perfusion Scores: SSS Score: 34 Percentage Abnormal: 50.00% Perfusion Scores: SDS Score: 8 Percentage Abnormal: 11.76% Procedure Note Norman Schafer MD - 01/12/2024 Abnormal myocardial perfusion imaging. The left ventricle is severely dilated. LVEF is approximated to be 40%. There are 2 significant perfusion defects: 1. There is a large perfusion defect involving the entire inferior andlateral reinoso. This is fixed at the base and reversible in the mid todistal segments. 2. There is a medium in size, severe intensity fixed perfusion defect inthe basal to mid anterolateral wall without any reversibility. There is reduced thickening in both of these territories. TID ratio was abnormal at 1.21. Abnormal findings communicated to the ordering physician, Dr. Sargent. Tony Sargent DO CV NM CARDIAC Final Result documented in this encounter Visit Diagnoses Diagnosis Chest pain on breathing- Primary Painful respiration Chest pain on breathing- Primary Painful respiration Ischemic cardiomyopathy Other specified forms of chronic ischemic heart disease Paroxysmal atrial fibrillation Atrial fibrillation Acute on chronic combined systolic and diastolic congestive heart failure Mixed hyperlipidemia documented in this encounter Care Teams Welfare Visitor Relationship Specialty Start Date End Date Ezra Denney NP [facility] [place] [address] PCP - General Family Medicine 07/07/19 Tony Miranda MD [email or web address] Historical LMR Provider 02/20/17 Jamie Soto MD [address] [place] [address], [facility] [address] [place] [address] [email or web address] Historical LMR Provider 02/20/17 Rinku Carrizales MD [address] [place] [address] [email or web address] Historical LMR Provider 02/20/17 documented as of this encounter Additional Source Comments The information contained in this document represents components of the legal health record. It is not the complete legal health record.[facility]
--- OUTSIDE RECORDS SUMMARY | 2025-01-04 13:05 | XMS_ITS | Encounter Summary ---
Author Organization [facility] Address [address] [place] [address] Phone Care Team Providers Care Weaving Supervisor Name Role Phone Seymour Ferris Christajacky PLANT ETIOLOGIST Unavailable Tony Miranda MD Unavailable [phone] Keyla Melton PA-C Unavailable [phone] Jamie Soto MD Unavailable [phone] Mamadou Loving DO Unavailable Roger Jorgensen ENERGY AND SUSTAINABILITY MANAGER Unavailable Rinku Carrizales MD Unavailable [phone] Ezra Denney ENERGY AND SUSTAINABILITY MANAGER Primary Care Provider + Encounter Details Date Type Department Care Team (Late st Contact Info) Description 02/23/2020 Procedure Pass Non-Invasive Cardiology [address] [place] [address] Social History Tobacco Use Types [...] Info) Description 08/24/2024 Procedure Pass Echo Lab [address] [place] [address] 02/15/2025 1:00 PM EDT Office Visit [facility] [place] [address] [facility], 4th Floor, [address] [place] [address] Radha Garcia MD [address] [facility] [address] [place] [address] [email or web address] 05/03/2025 11:15 AM EST Office Visit [facility] [address] 3rd Floor, [address] [place] [address] Tony Sargent, [address] [address] 08/24/2025 11:15 AM EDT Appointment Echo Lab [place] [address] [place] [address] Tony Sargent, DO [address] [place] [address] [place] [address] documented as of this encounter Visit Diagnoses Not on filedocumented in this encounter Care Teams Weaving Supervisor Relationship Specialty Start Date End Date Ezra Denney, NACHO [address] [facility] [place] [address] PCP - General Family Medicine 07/07/19 Seymour Ferris, MIKE [address] [place] [address] Historical LMR Provider 02/20/1705/12/21 Tony Miranda MD [address] [address] [email or web address] Historical LMR Provider 02/20/17 Keyla Melton PA-C [address] [place] [address] [email or web address] Historical LMR Provider 02/20/17 05/12/21 Jamie Soto MD [address] [place] [address] [email or web address] Historical LMR Provider 02/20/17 Mamadou Loving DO [address] [place] [address] Historical LMR Provider 02/20/17 Roger Jorgensen NP [address] [place] [address] [address] Historical LMR Provider 02/20/17 2 Rinku Carrizales MD [address] [place] [address] [email or web address] Historical LMR Provider 02/20/17 documented as of this encounter Additional Source Comments The information contained in this document represents components of the legal health record. It is not the complete legal health record.[facility]
--- OUTSIDE RECORDS SUMMARY | 2025-01-04 13:05 | XMS_ITS | Encounter Summary ---
Author Organization [facility] Address [address] [place] [address] Phone Care Team Providers Care Roughener Name Role Phone Seymour Ferris Christajacky SALES AND MANAGEMENT TRAINEE Unavailable Tony Miranda MD Unavailable [phone] Keyla Melton PA-C Unavailable Jamie Soto MD Unavailable Mamadou Loving DO Unavailable Roger Jorgensen SHODER FILLER Unavailable [phone] Rinku Carrizales MD Unavailable [phone] Ezra Denney SHODER FILLER Primary Care Provider + Encounter Details Date Type Department Care Team (Late st Contact Info) Description 03/05/2020 Procedure Pass Echo Lab [address] [place] [address] Social History Tobacco Use Types [...] Description 08/24/2024 Procedure Pass Echo Lab [address] [place] [address] 02/15/2025 1:00 PM EDT Office Visit [facility] [place] [address] [facility], 4th Floor, [address] [place] [address] Radha Garcia MD [address] [facility] [address] [place] [address] [email or web address] 05/03/2025 11:15 AM EST Office Visit [facility] [address] 3rd Floor, [address] [place] [address] Tony Sargent, [address] [address] 08/24/2025 11:15 AM EDT Appointment Echo Lab [place] [address] [place] [address] Tony Sargent, DO [address] [place] [address] [place] [address] documented as of this encounter Visit Diagnoses Not on filedocumented in this encounter Care Teams Roughener Relationship Specialty Start Date End Date Ezra Denney, NACHO [address] [place] [address] PCP - General Family Medicine 07/07/19 Seymour Ferris, MIEK [address] [place] [address] [place] [address] Historical LMR Provider 02/20/1705/12/21 Tony Miranda MD [address] [address] [email or web address] Historical LMR Provider 02/20/17 Keyla Melton PA-C [address] [place] [address] [email or web address] Historical LMR Provider 02/20/17 05/12/21 Jamie Soto MD [address] [place] [address] [email or web address] Historical LMR Provider 02/20/17 Mamadou Loving DO [address] [place] [address] Historical LMR Provider 02/20/17 Roger Jorgensen NP [address] [place] [address] [address] Historical LMR Provider 02/20/17 2 Rinku Carrizales MD [address] [place] [address] [email or web address] Historical LMR Provider 02/20/17 documented as of this encounter Additional Source Comments The information contained in this document represents components of the legal health record. It is not the complete legal health record.[facility]
--- OUTSIDE RECORDS SUMMARY | 2025-01-04 13:05 | XMS_ITS | Encounter Summary ---
Author Organization [facility] Address [address] [place] [address] Phone Care Team Providers Care Construction Project Administrator Name Role Phone Mamadou Loving DO Primary Care Provider [phone] Seymour Ferris AWS SOLUTION ARCHITECT Unavailable Tony Miranda MD Unavailable Keyla Melton PA-C Unavailable Jamie Soto MD Unavailable Mamadou Loving DO Unavailable Roger Jorgensen RAW STOCK MACHINE FEEDER Unavailable Rinku Carrizales MD Unavailable [phone] Ezra Denney NP Primary Care Provider + Encounter Details Date Type Department Care Team (Late st Contact Info) Description 12/02/2017 Procedure Pass [facility] Scan - [address] [id number] Social History Tobacco Use Types Packs/Day Years [...] Info) Description 08/24/2024 Procedure Pass Echo Lab [address] [place] [address] 02/15/2025 1:00 PM EDT Office Visit [facility] [place] [address] [facility], 4th Floor, [address] [place] [address] Radha Garcia MD [address] [facility] [address] [place] [address] [email or web address] 05/03/2025 11:15 AM EST Office Visit [facility] [address] [place] [address] 3rd Floor, [address] [place] [address] Tony Sargent DO [address] [place] [address] [email or web address] 08/24/2025 11:15 AM EDT Appointment Echo Lab [address] [place] [address] Tony Sargent DO [address] [place] [address] [place] [address] [email or web address] documented as of this encounter Visit Diagnoses Not on filedocumented in this encounter Care Teams Construction Project Administrator Relationship Specialty Start Date End Date Mamadou Loving DO [address] [place] [address] PCP - General 02/20/17 07/06/19 Ezra Denney, NACHO [address] [facility] [place] [address] PCP - General Family Medicine 07/07/19 Seymour Ferris, AWS SOLUTION ARCHITECT [address] [place] [address] [email or web address] Historical LMR Provider 02/20/1705/12/21 Tony Miranda MD [address] [address] [email or web address] Historical LMR Provider 02/20/17 Keyla Melton PA-C [address] [place] [address] [email or web address] Historical LMR Provider 02/20/17 05/12/21 Jamie Soto MD [address] [address] [email or web address] Historical LMR Provider 02/20/17 Mamadou Loving DO [address] [place] [address] Historical LMR Provider 02/20/17 Roger Jorgensen NP [address] [place] [phone] Historical LMR Provider 02/20/17 2 Rinku Carrizales MD [address] [place] [address] [email or web address] Historical LMR Provider 02/20/17 documented as of this encounter Additional Source Comments The information contained in this document represents components of the legal health record. It is not the complete legal health record.[facility]
--- OUTSIDE RECORDS SUMMARY | 2025-01-04 13:06 | XMS_ITS | Encounter Summary ---
Author Organization [facility] Address [address] [place] [address] Phone Care Team Providers Care Field Specialist Name Role Phone Mamadou Loving DO Primary Care Provider [phone] Seymour Ferris STOP ATTACHER Unavailable Tony Miranda MD Unavailable Keyla Melton PA-C Unavailable Jamie Soto MD Unavailable Mamadou Loving DO Unavailable Roger Jorgensen SONAR SUBSYSTEM EQUIPMENT OPERATOR Unavailable [phone] Rinku Carrizales MD Unavailable [phone] Ezra Denney NP Primary Care Provider + Encounter Details Date Type Department Care Team (Latest Contact Info) Description 09/12/2017 Ancillary Orders Non-Invasive Cardiology [address] [place] [address] Tony Miranda MD [address] [place] [address] [email or web address] Ischemic cardiomyopathy Social History Tobacco Use [...] Info) Description 08/24/2024 Procedure Pass Echo Lab [address] [place] [address] 02/15/2025 1:00 PM EDT Office Visit [facility] Allergy [place] [address] [facility], 4th Floor, [address] [place] [address] Radha Garcia MD 55 [facility] [address] [place] [address] [email or web address] 05/03/2025 11:15 AM EST Office Visit [facility] [address] [place] [address] 3rd Floor, [address] [place] [address] Tony Sargent, DO [address] [facility] [address] [place] [address] 08/24/2025 11:15 AM EDT Appointment Echo Lab [place] [address] [place] [address] Tony Sargent, DO [address] [facility] [address] [place] [address] [email or web address] documented as of this encounter Results * DEVICE CHECK: ICD IN-PERSON PROGRAMMING?? SINGLE LEAD (01/22/2018 3:49 PM EDT) Narrative Tony Miranda MD - 01/28/2018 4:51 PM EDT Reason for appointment: In-office ICD interrogation HPI: Routine in-office ICD interrogation, using iterative adjustment to test the function of the device and select optimal permanent programmed values. No device related complaints. Indication for device: Ischemic cardiomyopathy Examination: Device type: ICD Animal Sticker: Medtronic Mode: VVI LRL/URL: 40/- bpm Thresholds, impedances, and sensing stable. High V rates: 0 since last reset 01/07, pt was hospitalized 01/05 for AF w/RVR in VF zone, successfully tx w/ATP x 1. Alerts: 0 Ventricular pacing: >.1% Battery: 8.2 years RA RV LV Sensing 4.4mV Threshold 1.75V@.4ms Impedance 399 ohms Additional comments or changes: Device functioning appropriately. Patient seeing Dr. Carrizales s/p hospitalization next week Normal device function. Patient to follow-up for in-office check in: 6 months, 3 months remote Report prepared by Iker Chan RN Tony Miranda MD CV CARDIAC SERVICES ORDER LILA Final Result documented in this encounter Visit Diagnoses Diagnosis Ischemic cardiomyopathy Other specified forms of chronic ischemic heart disease documented in this encounter Care Teams Field Specialist Relationship Specialty Start Date End Date Mamadou Loving DO [address] [place] [address] PCP - General 02/20/17 07/06/19 Ezra Denney NP [address] [place] [address] [place] [address] PCP - General Family Medicine 07/07/19 Seymour Ferris CNP [address] [place] [address] [email or web address] Historical LMR Provider 02/20/1705/12/21 Tony Miranda MD [address] [place] [address] [place] [address] [email or web address] Historical LMR Provider 02/20/17 Keyla Melton PA-C [address] [place] [address] [email or web address] Historical LMR Provider 02/20/17 05/12/21 Jamie Soto MD [address] [facility] [address] [place] [address] [email or web address] Historical LMR Provider 02/20/17 Mamadou Loving DO [address] [place] [address] Historical LMR Provider 02/20/17 Roger Jorgensen NP [address] [place] [address] 2-1 [place] [address] Historical LMR Provider 02/20/17 2 Rinku Carrizales MD [address] [place] [address] [email or web address] Historical LMR Provider 02/20/17 documented as of this encounter Additional Source Comments The information contained in this document represents components of the legal health record. It is not the complete legal health record.[facility]
--- OUTSIDE RECORDS SUMMARY | 2025-01-04 13:06 | XMS_ITS | Encounter Summary ---
Author Organization [facility] Address [address] [place] [address] Phone Care Team Providers Care Oil Well Gun Perforator Operator Name Role Phone Mamadou Loving DO Primary Care Provider [phone] Seymour Ferris SPA SUPERVISOR Unavailable Tony Miranda MD Unavailable Keyla Melton PA-C Unavailable Jamie Soto MD Unavailable [phone] Mamadou Loving DO Unavailable Roger Jorgensen ACCOUNTS PAYABLE PAYROLL COORDINATOR Unavailable Rinku Carrizales MD Unavailable [phone] Ezra Denney NP Primary Care Provider + Encounter Details Date Type Department Care Team (Late st Contact Info) Description 12/02/2017 Procedure Pass [facility], Ct Scan - [address] [id number] Social History Tobacco Use Types Packs/Day Years [...] Info) Description 08/24/2024 Procedure Pass [facility] [address] [place] [address] 02/15/2025 1:00 PM EDT Office Visit [facility] Allergy [place] [address] [facility] Building, 4th Floor, [address] [place] [address] Radha Garcia MD 55 [facility] [address] [place] [address] [email or web address] [facility].FORMERLY [facility], [facility] 05/03/2025 11:15 AM EST Office Visit [facility] [address] [place] [address] 3rd Floor, [address] [place] [address] Tony Sargent DO [address] [place] [address] [email or web address] 08/24/2025 11:15 AM EDT Appointment Echo Lab [address] [place] [address] Tony Sargent DO [address] [place] [address] [place] [address] [email or web address] documented as of this encounter Visit Diagnoses Not on filedocumented in this encounter Care Teams Oil Well Gun Perforator Operator Relationship Specialty Start Date End Date Mamadou Loving DO 5 [place] [address] PCP - General 02/20/17 07/06/19 Ezra Denney, NACHO [address] [place] [address] PCP - General Family Medicine 07/07/19 Seymour Ferris, SPA SUPERVISOR [address] [place] [address] [place] [address] [email or web address] Historical LMR Provider 02/20/1705/12/21 Tony Miranda MD [address] [address] [email or web address] Historical LMR Provider 02/20/17 Keyla Melton PA-C [address] [place] [address] [email or web address] Historical LMR Provider 02/20/17 05/12/21 Jamie Soto MD [address] [address] [email or web address] Historical LMR Provider 02/20/17 Mamadou Loving DO [address] [place] [address] Historical LMR Provider 02/20/17 Roger Jorgensen NP [address] [place] [phone] Historical LMR Provider 02/20/17 2 Rinku Carrizales MD [address] [place] [address] [email or web address] Historical LMR Provider 02/20/17 documented as of this encounter Additional Source Comments The information contained in this document represents components of the legal health record. It is not the complete legal health record.[facility]
--- OUTSIDE RECORDS SUMMARY | 2025-01-04 13:06 | XMS_ITS | Encounter Summary ---
Author Organization [facility] Address [address] [place] [address] Phone Care Team Providers Care Taker Off Braker Machine Name Role Phone Tony Mrianda MD Unavailable Jamie Soto MD Unavailable Rinku Carrizales MD Unavailable [phone] Ezra Denney GARMENT PARTS CUTTER HAND Primary Care Provider + Encounter Details Date Type Department Care Team (Latest Contact Info) Description 08/12/2022 Ancillary Orders Non-Invasive Cardiology [address] [place], [place] [phone] Arthur Casarez MD [address] [place], [place] [id number] [email or web address] Ischemic cardiomyopathy Social History Tobacco Use Types [...] Info) Description 08/24/2024 Procedure Pass Echo Lab [address] [place] [address] 02/15/2025 1:00 PM EDT Office Visit [facility] [place] 55 [facility], 4th Floor, [address] [place] [address] Radha Garcia MD [address] [facility] [address] [place] [address] [email or web address] 05/03/2025 11:15 AM EST Office Visit [facility] [address] 3rd Floor, [address] [place] [address] Tony Sargent DO [address] [place] [address] [place] [address] 08/24/2025 11:15 AM EDT Appointment Echo Lab [place] [address] [place] [address] Tony Sargent DO [address] [place] [address] [place] [address] [email or web address] documented as of this encounter Results * DEVICE CHECK: ICD IN-HOME INTERROGATION PLUS HFM IMPEDANCE (08/12/2022 10:47 AM EDT) Narrative Tony Sargent DO - 08/13/2022 11:21 AM EDT Images from the original result were not included. Reason for appointment: Remote ICD interrogation HPI: Routine 3 month remote ICD interrogation. No device related complaints. Indication for device: Ischemic cardiomyopathy Examination: Device type: ICD Wealth Management Advisor: Medtronic Mode: VVI LRL/URL: 40/- bpm Thresholds, impedances, and sensing stable. High V rates: 0 Ventricular pacin.1% Battery: 8 yrs Thoracic impedance: Recent low impedance, seen in office by Yazminprabha on 08/05, patient endorsed only occasional SOB, will review w/ Patrycia. Additional comments: Device functioning appropriately. Normal device function. Patient to follow-up for continued monitoring every 3 months. Report prepared by Iker Chan RN Procedure Note Tony Sargent, DO - 08/13/2022 Images from the original note were not included. Reason for appointment: Remote ICD interrogation HPI: Routine 3 month remote ICD interrogation. No device relatedcomplaints. Indication for device: Ischemic cardiomyopathy Examination: Device type: ICD Wealth Management Advisor: Medtronic Mode: VVI LRL/URL: 40/- bpm Thresholds, impedances, and sensing stable. High V rates: 0 Ventricular pacin.1% Battery: 8 yrs Thoracic impedance: Recent low impedance, seen in office by Claudiaryprabha on08/05, patient endorsed only occasional SOB, will review w/ Patrycia. Additional comments: Device functioning appropriately. Normal device function. Patient to follow-up for continued monitoringevery 3 months. Report prepared by Iker Chan RN us Arthur Casarez MD CV CARDIAC SERVICES ORDERABL ES Final Result documented in this encounter Visit Diagnoses Diagnosis Ischemic cardiomyopathy Other specified forms of chronic ischemic heart disease Ischemic cardiomyopathy Other specified forms of chronic ischemic heart disease documented in this encounter Care Teams Taker Off Braker Machine Relationship Specialty Start Date End Date Ezra Denney NP [facility] [address] PCP - General Family Medicine 07/07/19 Tony Miranda MD [email or web address] Historical LMR Provider 02/20/17 Jamie Soto MD [address] [place] [address], [facility] [address] [place] [address] [email or web address] Historical LMR Provider 02/20/17 Rinku Carrizales MD [address] [address] [email or web address] Historical LMR Provider 02/20/17 documented as of this encounter Additional Source Comments The information contained in this document represents components of the legal health record. It is not the complete legal health record.[facility]
--- OUTSIDE RECORDS SUMMARY | 2025-01-04 13:06 | XMS_ITS | Encounter Summary ---
Author Organization [facility] Address [address] [place] [address] Phone Care Team Providers Care User Experience Architect Name Role Phone Mamadou Loving DO Primary Care Provider [phone] Seymour Ferris PILOT MANAGER Unavailable Tony Miranda MD Unavailable Keyla Melton PA-C Unavailable [phone] Jamie Soto MD Unavailable Mamadou Loving DO Unavailable Roger Jorgensen TAP BUILDER Unavailable [phone] Rinku Carrizales MD Unavailable [phone] Ezra Denney NP Primary Care Provider + Encounter Details Date Type Department Care Team (Late st Contact Info) Description 09/12/2017 Ancillary [facility] [address] [place] [address] Tony Miranda MD [address] [place] [address] [place] [address] [email or web address] Social History Tobacco Use Types Packs/Day Years [...] Info) Description 08/24/2024 Procedure Pass Echo Lab [address] [place] [address] 02/15/2025 1:00 PM EDT Office Visit [facility] Allergy [place] 55 [facility], 4th Floor, [address] [place] [address] Radha Garcia MD 55 [facility] [address] [place] [address] [email or web address] 05/03/2025 11:15 AM EST Office Visit [facility] [address] [place] [address] 3rd Floor, [address] [place] [address] Tony Sargent, DO 22 [facility] [address] [place] [address] 08/24/2025 11:15 AM EDT Appointment Echo Lab [address] [place] [address] Tony Sargent DO 22 [facility] [address] [place] [address] documented as of this encounter Visit Diagnoses Not on filedocumented in this encounter Care Teams User Experience Architect Relationship Specialty Start Date End Date Mamadou Loving DO 5 [place] [address] PCP - General 02/20/17 07/06/19 Ezra Denney NP [facility] [place] [address] PCP - General Family Medicine 07/07/19 JosySeymour, MIKE [address] [place] [address] [place] [address] [email or web address] Historical LMR Provider 02/20/1705/12/21 Tony Miranda MD [address] [place] [address] [place] [address] [email or web address] Historical LMR Provider 02/20/17 Keyla Melton PA-C [address] [place] [address] [email or web address] Historical LMR Provider 02/20/17 05/12/21 Jaime Soto MD [address] [place] [address] [email or web address] Historical LMR Provider 02/20/17 Mamadou Loving DO [address] [place] [address] Historical LMR Provider 02/20/17 Roger Jorgensen NP [address] [place] [address] [address] Historical LMR Provider 02/20/17 2 Rinku Carrizales MD [address] [place] [address] [email or web address] Historical LMR Provider 02/20/17 documented as of this encounter Additional Source Comments The information contained in this document represents components of the legal health record. It is not the complete legal health record.[facility]
--- OUTSIDE RECORDS SUMMARY | 2025-01-04 13:06 | XMS_ITS | Encounter Summary ---
Author Organization [facility] Address [address] [place] [address] Phone Care Team Providers Care Supervisor Research Kennel Name Role Phone Tony Miranda MD Unavailable Jamie Soto MD Unavailable [phone] Rinku Carrizales MD Unavailable [phone] Ezra Denney MEDIA STRATEGIST Primary Care Provider + Encounter Details Date Type Department Care Team (Late st Contact Info) Description 08/12/2022 Procedure Pass Non-Invasive Cardiology [address] [place] [address] Social History Tobacco Use Types Packs/Day Years [...] Info) Description 08/24/2024 Procedure Pass Echo Lab [place] [address] [place] [address] 02/15/2025 1:00 PM EDT Office Visit [facility] Allergy [place] 55 [facility] Building, 4th Floor, [address] [place] [address] Radha Garcia MD 55 [facility] [address] [place] [address] [email or web address] 05/03/2025 11:15 AM EST Office Visit [facility] [address] [place] [address] 3rd Floor, [address] [place] [address] Tony Sargent, DO [address] [address] 08/24/2025 11:15 AM EDT Appointment Echo Lab [address] [address] Tony Sargent, DO [address] [address] documented as of this encounter Visit Diagnoses Not on filedocumented in this encounter Care Teams Supervisor Research Kennel Relationship Specialty Start Date End Date Ezra Denney NP [facility] [place] [address] PCP - General Family Medicine 07/07/19 Tony Miranda MD [email or web address] Historical LMR Provider 02/20/17 Jamie Soto MD [address] [place] [address], [address] [address] [email or web address] Historical LMR Provider 02/20/17 Rinku Carrizales MD [address] [place] [address] [email or web address] Historical LMR Provider 02/20/17 documented as of this encounter Additional Source Comments The information contained in this document represents components of the legal health record. It is not the complete legal health record.[facility]
--- OUTSIDE RECORDS SUMMARY | 2025-01-04 13:06 | XMS_ITS | Clinical Summary ---
Author Organization [facility] Address [address] [place] [address] Care Team Providers Care Mechanical Systems Engineer Name Role Phone Mamadou Loving Primary Care Provider [phone] Zackary Martinez MD Unavailable Allergies Active Allergy Reactions Criticality Noted Date Comments Penicillins Hives Medium 03/26/2017 Medications lisinopril (PRINIVIL,ZeSTRI L) 5 MG tablet Take 5 mg by [...] 66 04/12/2017 11:55 AM EST Temperature 36.4 C (97.5 F) 04/12/2017 11:55 AM EST Respiratory Rate 18 04/12/2017 11:55 AM EST Oxygen Saturation 97% 04/12/2017 11:55 AM EST Inhaled Oxygen Concentration - - Weight 113 kg (250 lb) 05/15/2017 10:05 AM EST Height 182.9 cm (6') 05/15/2017 10:05 AM EST Body Mass Index 33.91 05/15/2017 10:05 AM EST Plan of Treatment Health Maintenance Due Date Last Done Comments Advance Care Planning 1950 Hepatitis C Virus Screening 1950 DTaP/Tdap/Td Vaccines (1 - Tdap) 1967 Pneumococcal Vaccines 50+ (1 of 1 - PCV) 1998 Zoster (Shingles) Vaccine (1 of 2) 1998 RSV Vaccine 60 years and old er and Patients (1 - 1-dose 75+ series) 2023 COVID-19 Vaccine ( - 2023-2 5 season) 2024 Influenza Vaccine 12/03/2024 Hepatitis B Vaccines Aged Out No long er eligible based on patient's age to complete this topic Medical Devices Implanted Type Area Inspector Type Device Identifier Shelf Expiration Date Model / Serial / Lot Afx2 Bifurcated Endograft Implanted:Qty: 1 on 04/11/2017 by Marco Lopez MD at [facility] [employer] 02/05/2018 SOW31-72/I1 / [id number] / Description:CAPPED PRICING $ 14,500.00 Afx Arteaga Proximal Endograft Implanted:Qty: 1 on 04/11/2017 by Marco Lopez MD at [facility] [employer] 01/28/2020 A25-25/C75- O 20V / [id number] / Description:CAPPED PRICING $ 14,500.00. THIS ITEM NOT CHARGEABLE. 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 - [id number] Implanted:Qty: 1 on 04/11/2017 by Marco Lopez MD at [facility] [employer] S17-45 / / [id number] Insurance MEDICARE PART A & B [facility] Advance Directives * Full Code (Latest Code Status on File) Date Activated Date Inactivated Comments 04/11/2017 1:01 PM * Full Code Date Activated Date Inactivated Comments 04/11/2017 7:06 AM 04/11/2017 1:01 PM Care Teams Mechanical Systems Engineer Relationship Specialty Start Date End Date Mamadou Loving [address] [place] [address] [place] [address] PCP - General Medicine Hospitalist 03/26/17 Zackary Martinez MD [address] [place] [address] [place] [address] Cardiovascular Disease 04/03/17
--- OUTSIDE RECORDS SUMMARY | 2025-01-04 13:06 | XMS_ITS | Encounter Summary ---
Author Organization [facility] Address [address] [place] [address] Phone Care Team Providers Care Occupational Therapy Aide Name Role Phone Tony Miranda MD Unavailable Jamie Soto MD Unavailable [phone] Rinku Carrizales MD Unavailable Ezra Denney NP Primary Care Provider + Encounter Details Date Type Department Care Team (Late st Contact Info) Description 04/16/2024 Transcribe Orders [facility] Specimen Processing [address] [place] [address] Ezra Denney, NACHO [facility] [place] [address] Social History Tobacco Use Types Packs/Day Years [...] Info) Description 08/24/2024 Procedure Pass Echo Lab [address] [place] [address] 02/15/2025 1:00 PM EDT Office Visit [facility] Allergy [place] 55 [facility], 4th Floor, [address] [place] [address] Radha Garcia MD 55 [facility] [address] [place] [address] [email or web address] 05/03/2025 11:15 AM EST Office Visit [facility] [address] 3rd Floor, [address] [place] [address] Tony Sargent, [address] [place] [address] 08/24/2025 11:15 AM EDT Appointment [place] [address] Tony Sargent, DO 22 [facility] [address] [place] [address] documented as of this encounter Visit Diagnoses Not on filedocumented in this encounter Care Teams Occupational Therapy Aide Relationship Specialty Start Date End Date Ezra Denney NP [address] [facility] [place] [address] PCP - General Family Medicine 07/07/19 Tony Miranda MD [email or web address] Historical LMR Provider 02/20/17 Jamie Soto MD [address] [place] [address] [email or web address] Historical LMR Provider 02/20/17 Rinku Carrizales MD [address] [place] [address] [email or web address] Historical LMR Provider 02/20/17 documented as of this encounter Additional Source Comments The information contained in this document represents components of the legal health record. It is not the complete legal health record.[facility]
--- OUTSIDE RECORDS SUMMARY | 2025-01-04 13:06 | XMS_ITS | Encounter Summary ---
Author Organization [facility] Address [facility] [employer] [facility] [address] [place] [address] Phone Care Team Providers Care Regional Facilities Specialist Name Role Phone Tony Miranda MD Unavailable Jamie Soto MD Unavailable Rinku Carrizales MD Unavailable [phone] Ezra Denney FORENSIC SERGEANT Primary Care Provider + Encounter Details Date Type Department Care Team (Late st Contact Info) Description 08/12/2022 Ancillary Orders [facility] 22 [facility] 3rd Floor, [address] [place], [place] [phone] Arthur Casarez MD [address] [place], [place] [phone] [email or web address] Social History Tobacco Use Types Packs/Day Years [...] Info) Description 08/24/2024 Procedure Pass Echo Lab [address] [place] [address] 02/15/2025 1:00 PM EDT Office [place] [facility] [place] 55 [facility], 4th Floor, [address] [place] [address] Radha Garcia MD 55 [facility] [address] [place] [address] [email or web address] 05/03/2025 11:15 AM EST Office Visit [facility] [address] 3rd Floor, [address] [place] [address] Tony Sargent, DO [address] [place] [address] [email or web address] 08/24/2025 11:15 AM EDT Appointment Echo Lab [address] [place] [address] Tony Sargent, [address] [address] [email or web address] documented as of this encounter Visit Diagnoses Not on filedocumented in this encounter Care Teams Regional Facilities Specialist Relationship Specialty Start Date End Date Ezra Denney NP [address] [facility] [place] [address] PCP - General Family Medicine 07/07/19 Tony Miranda MD [email or web address] Historical LMR Provider 02/20/17 Jamie Soto MD [address] [place] [address], [address] [address] [email or web address] Historical LMR Provider 02/20/17 Rinku Carrizales MD [address] [place] [address] [email or web address] Historical LMR Provider 02/20/17 documented as of this encounter Additional Source Comments The information contained in this document represents components of the legal health record. It is not the complete legal health record.[facility]
--- OUTSIDE RECORDS SUMMARY | 2025-01-04 13:06 | XMS_ITS | Encounter Summary ---
Author Organization [facility] Address [address] [place] [address] Care Team Providers Care Bicycle Rental Clerk Name Role Phone Ezra Denney NACHO Primary Care Provider Encounter Details Date Type Department Care Team (Late Contact Info) Description 05/31/2024 Lab Requisition [facility] - Main Lab [address] [facility] [place] [address] Eugene Wilson MD [address] [place] [address] Encounter for other general examination Social History [...] Department Care Team (Late Contact Info) Description 07/18/2025 11:00 AM EDT Office Visit Endocrinology [address] [address] Colin Martinez MD [address] [place] [address] documented as of this encounter Procedures Procedure [...] ult [facility] [address] [place] [address], * CBC auto differential (05/31/2024 6:21 AM EST) WBC 6.6 4.8 - 10.8 K/mcL LAB HEMETOLOGY METHOD 05/31/2024 11:19 AM EST [facility] RBC 4.60 4.50 - 5.50 M/mcL LAB HEMETOLOGY METHOD 05/31/2024 11:19 AM [facility] Hemoglobin 13.7 13.5 - 17.5 g/dL LAB HEMETOLOGY METHOD 05/31/2024 11:19 AM [facility] Hematocrit 42.2 42.0 - 54.0 % LAB HEMETOLOGY METHOD 05/31/2024 11:19 AM [facility] MCV 92.1 79.0 - 98.0 FL LAB HEMETOLOGY METHOD 05/31/2024 11:19 AM [facility] MCH 29.9 27.0 - 32.0 pcg LAB HEMETOLOGY METHOD 05/31/2024 11:19 AM [facility] MCHC 32.5 32.0 - 37.0 g/dL LAB HEMETOLOGY METHOD 05/31/2024 11:19 AM [facility] RDW 14.5 11.0 - 15.0 % LAB HEMETOLOGY METHOD 05/31/2024 11:19 AM [facility] Platelets 190 130 - 400 K/mcL LAB HEMETOLOGY METHOD 05/31/2024 11:19 AM [facility] MPV 11.0 7.0 - 11.0 FL LAB HEMETOLOGY METHOD 05/31/2024 11:19 AM [facility] NRBC 0.0 <1.0 % LAB HEMETOLOGY METHOD 05/31/2024 11:19 AM [facility] NRBC Absolute 0.00 <0.10 K/mcL LAB HEMETOLOGY METHOD 05/31/2024 11:19 AM [facility] Neutrophils Relative 57.9 % LAB HEMETOLOGY METHOD 05/31/2024 11:19 AM [facility] Lymphocytes Relative 28.5 % LAB HEMETOLOGY METHOD 05/31/2024 11:19 AM [facility] Monocytes Relative 10.3 % LAB HEMETOLOGY METHOD 05/31/2024 11:19 AM [facility] Eosinophils Relative 2.4 % LAB HEMETOLOGY METHOD 05/31/2024 11:19 AM [facility] Basophils Relative 0.6 % LAB HEMETOLOGY METHOD 05/31/2024 11:19 AM [facility] Immature Granulocytes Relative 0.3 % LAB HEMETOLOGY METHOD 05/31/2024 11:19 AM EST [facility] Neutrophils Absolute 3.83 1.50 - 7.00 K/mcL LAB HEMETOLOGY METHOD 05/31/2024 11:19 AM EST [facility] Lymphocytes Absolute 1.89 1.00 - 5.00 K/mcL LAB HEMETOLOGY METHOD 05/31/2024 11:19 AM EST [facility] Monocytes Absolute 0.68 0.20 - 1.00 K/mcL LAB HEMETOLOGY METHOD 05/31/2024 11:19 AM EST [facility] Eosinophils Absolute 0.16 0.00 - 0.50 K/mcL LAB HEMETOLOGY METHOD 05/31/2024 11:19 AM EST [facility] Basophils Absolute 0.04 0.00 - 0.20 K/mcL LAB HEMETOLOGY METHOD 05/31/2024 11:19 AM [facility] Immature Granulocytes Absolute 0.02 0.00 - 0.03 K/mcL LAB HEMETOLOGY METHOD 05/31/2024 11:19 AM EST [facility] Blood Venous blood specimen / Unknown Venipuncture / Unknown 05/31/2024 6:21 AM EST 05/31/2024 7:59 AM EST us Eugene Wilson MD LAB BLOOD ORDERABLES Final Res ult [facility] [address] [place] [address], * Magnesium (05/31/2024 6:21 AM EST) Magnesium 2.2 1.9 - 2.6 mg/dL LAB CHEMISTRY METHOD 05/31/2024 9:29 AM EST [facility] Blood Venous blood specimen / Unknown Venipuncture / Unknown 05/31/2024 6:21 AM EST 05/31/2024 7:59 AM EST us Eugene Wilson MD LAB BLOOD ORDERABLES Final Res ult Performing Organization Address [facility]/ZIP Co de Phone Number [facility] [address] [place] [address], [place] [phone] * (ABNORMAL) Valproic acid level, total (05/31/2024 6:21 AM EST) [facility] Valproic Acid, Total 34(L) 50 - 100 mcg/mL LAB CHEMISTRY METHOD 05/31/2024 9:29 AM EST [facility] Blood Venous blood specimen / Unknown Venipuncture / Unknown 05/31/2024 6:21 AM EST 05/31/2024 7:59 AM EST us Eugene Wilson MD LAB BLOOD ORDERABLES Final Res ult Performing Organization Address [facility] Co de Phone Number [facility] [address] [place] [address], [place] [phone] * (ABNORMAL) Comprehensive metabolic panel (05/31/2024 6:21 AM EST) [facility] Sodium 144 133 - 145 mmol/L LAB CHEMISTRY METHOD 05/31/2024 9:29 AM [facility] Potassium 3.6 3.5 - 5.5 mmol/L LAB CHEMISTRY METHOD 05/31/2024 9:29 AM [facility] Chloride 117(H) 96 - 110 mmol/L LAB CHEMISTRY METHOD 05/31/2024 9:29 AM [facility] CO2 22 21 - 32 mmol/L LAB CHEMISTRY METHOD 05/31/2024 9:29 AM [facility] Anion Gap 5 3 - 11 LAB CHEMISTRY METHOD 05/31/2024 9:29 AM [facility] Glucose 76 70 - 100 mg/dL LAB CHEMISTRY METHOD 05/31/2024 9:29 AM [facility] BUN 12 5 - 25 mg/dL LAB CHEMISTRY METHOD 05/31/2024 9:29 AM [facility] Creatinine 0.86 0.70 - 1.30 mg/dL LAB CHEMISTRY METHOD 05/31/2024 9:29 AM [facility] eGFR 90 >=60 mL/min/1. 73m2 LAB CHEMISTRY METHOD 05/31/2024 9:29 AM [facility] Comment:Calculation based on the Chronic Kidney Disease Epidemiology Collaboration (CKD-EPI) equation refit without adjustment for race. BUN/Creatinine Ratio 14.0 LAB CHEMISTRY METHOD 05/31/2024 9:29 AM [facility] Calcium 9.2 8.5 - 10.5 mg/dL LAB CHEMISTRY METHOD 05/31/2024 9:29 AM [facility] AST (SGOT) 10 10 - 42 unit/L LAB CHEMISTRY METHOD 05/31/2024 9:29 AM [facility] ALT (SGPT) 15 10 - 60 unit/L LAB CHEMISTRY METHOD 05/31/2024 9:29 AM [facility] Alkaline Phosphatase 75 42 - 121 unit/L LAB CHEMISTRY METHOD 05/31/2024 9:29 AM [facility] Total Protein 5.6(L) 6.0 - 8.0 g/dL LAB CHEMISTRY METHOD 05/31/2024 9:29 AM [facility] Albumin 3.1(L) 3.2 - 5.0 g/dL LAB CHEMISTRY METHOD 05/31/2024 9:29 AM [facility] Total Bilirubin 0.6 0.0 - 1.4 mg/dL LAB CHEMISTRY METHOD 05/31/2024 9:29 AM [facility] Blood Venous blood specimen / Unknown Venipuncture / Unknown 05/31/2024 6:21 AM EST 05/31/2024 7:59 AM EST us Eugene Wilson MD LAB BLOOD ORDERABLES Final Res ult [facility] [address] [place] [address], documented in this encounter Visit Diagnoses Diagnosis Encounter for other general examination documented in this encounter Care Teams Bicycle Rental Clerk Relationship Specialty Start Date End Date Ezra Denney NP [address] [place], [place] PCP - General 06/24/23 documented as of this encounter
--- OUTSIDE RECORDS SUMMARY | 2025-01-04 13:06 | XMS_ITS | Encounter Summary ---
Author Organization [facility] Address [address] [place] [address] Care Team Providers Care Captain'S Assistant Name Role Phone Ezra Denney NACHO Primary Care Provider Encounter Details Date Type Department Care Team (Late Contact Info) Description 06/07/2024 Lab Requisition [facility] - Main Lab 299 [facility] [place] [address] Eugene Wilson MD [address] [place] [address] Encounter for other general examination Social History [...] 07/18/2025 11:00 AM EDT Office Visit Endocrinology [address] [address] Colin Martinez MD [address] [place] [address] documented as of this encounter Procedures Procedure Name Priority Date/Time Associated Diagnosis Comments COMPLETE BLOOD COUNT Routine 06/07/2024 7:01 AM EST Encounter for other general examination BASIC METABOLIC PANEL Routine 06/07/2024 7:01 AM EST Encounter for other general examination documented in this encounter Results * Complete blood count (06/07/2024 7:01 AM EST) [facility] Signature WBC 6.1 4.8 - 10.8 K/mcL LAB HEMETOLOGY METHOD 06/07/2024 10:40 AM [facility] RBC 4.60 4.50 - 5.50 M/mcL LAB HEMETOLOGY METHOD 06/07/2024 10:40 AM [facility] Hemoglobin 13.9 13.5 - 17.5 g/dL LAB HEMETOLOGY METHOD 06/07/2024 10:40 AM [facility] LAB Hematocrit 43.1 42.0 - 54.0 % LAB HEMETOLOGY METHOD 06/07/2024 10:40 AM [facility] LAB MCV 93.7 79.0 - 98.0 FL LAB HEMETOLOGY METHOD 06/07/2024 10:40 AM [facility] LAB MCH 30.2 27.0 - 32.0 pcg LAB HEMETOLOGY METHOD 06/07/2024 10:40 AM [facility] LAB MCHC 32.3 32.0 - 37.0 g/dL LAB HEMETOLOGY METHOD 06/07/2024 10:40 AM [facility] LAB RDW 14.6 11.0 - 15.0 % LAB HEMETOLOGY METHOD 06/07/2024 10:40 AM [facility] Platelets 187 130 - 400 K/mcL LAB HEMETOLOGY METHOD 06/07/2024 10:40 AM [facility] LAB MPV 10.9 7.0 - 11.0 FL LAB HEMETOLOGY METHOD 06/07/2024 10:40 AM [facility] LAB NRBC 0.0 <1.0 % LAB HEMETOLOGY METHOD 06/07/2024 10:40 AM [facility] NRBC Absolute 0.00 <0.10 K/mcL LAB HEMETOLOGY METHOD 06/07/2024 10:40 AM [facility] Blood Venous blood specimen / Unknown Venipuncture / Unknown 06/07/2024 7:01 AM EST 06/07/2024 9:23 AM EST us Eugene Wilson MD LAB BLOOD ORDERABLES Final Res ult [facility] [address] [place] [address], * (ABNORMAL) Basic metabolic panel (06/07/2024 7:01 AM EST) Sodium 142 133 - 145 mmol/L LAB CHEMISTRY METHOD 06/07/2024 11:08 AM [facility] Potassium 4.0 3.5 - 5.5 mmol/L LAB CHEMISTRY METHOD 06/07/2024 11:08 AM [facility] Chloride 107 96 - 110 mmol/L LAB CHEMISTRY METHOD 06/07/2024 11:08 AM [facility] CO2 28 21 - 32 mmol/L LAB CHEMISTRY METHOD 06/07/2024 11:08 AM [facility] Anion Gap 7 3 - 11 LAB CHEMISTRY METHOD 06/07/2024 11:08 AM [facility] Glucose 65(L) 70 - 100 mg/dL LAB CHEMISTRY METHOD 06/07/2024 11:08 AM [facility] BUN 15 5 - 25 mg/dL LAB CHEMISTRY METHOD 06/07/2024 11:08 AM [facility] Creatinine 0.81 0.70 - 1.30 mg/dL LAB CHEMISTRY METHOD 06/07/2024 11:08 AM [facility] LAB eGFR 91 >=60 mL/min/1. 73m2 LAB CHEMISTRY METHOD 06/07/2024 11:08 AM [facility] LAB Comment:Calculation based on the Chronic [...] MD LAB BLOOD ORDERABLES Final Res ult [facility]) [facility] [address] [place] [address], documented in this encounter Visit Diagnoses Diagnosis Encounter for other general examination documented in this encounter Care Teams Captain'S Assistant Relationship Specialty Start Date End Date Ezra Denney NP [address] [place], [place] PCP - General 06/24/23 documented as of this encounter
--- OUTSIDE RECORDS SUMMARY | 2025-01-04 13:06 | XMS_ITS | Encounter Summary ---
Author Organization [facility] Address [address] [place] [address] [address] [place] [address] Phone Care Team Providers Care Vp Software Name Role Phone Tony Miranda MD Unavailable Jamie Soto MD Unavailable [phone] Rinku Carrizales MD Unavailable [phone] Ezra Denney MARKETING DATABASE ANALYST Primary Care Provider + Reason for Visit * Reason Comments Medication Refill Encounter Details Date Type Department Care Team (Late st Contact Info) Description 08/29/2024 Refill Division of Immunologic, Inflammatory, and Infectious Neurological Disorders [address] [place] [address], 7th Floor, [address] [place] [address] Jordana Webb MD [address] [place] [address] Medication Refill Social History Tobacco Use Types Packs/Day Years [...] AM EDT documented as of this encounter Progress Notes * Abimbola Oneil - 08/30/2024 11:27 AM EDT Rx Care Gap Status - Instructions for Clinical Staff (prescriber discretion applies): > At least one medication below does not meet full criteria. Please see medication-specific renewal instructions below. > No future appt: Please schedule if appropriate. Visit Info Last visit: 12/03/2023 Jordana Webb MD - Neurology [place] [address] > Requested f/u: Return in about 6 months (around 06/04/2024). Upcoming visit: None ACTIONS TAKEN BY Abimbola Oneil - Refill protocol not met - Asked front elevator operator staff to schedule appointment. Antiepileptic With Lab Monitoring Rx Protocol - divalproex sodium Criteria not met; renew for up to 3 months. Visit in the past 12 months: Yes Clinical criteria: - BMP within past year: Yes - LFTs within past year: Yes - CBC within past year: Yes - Above labs are normal: No Lab Results Component Value Date SODIUM 140 04/12/2024 POTASSIUM 3.8 04/12/2024 CHLORIDE 106 04/12/2024 CO2 26 04/12/2024 BUN 13 04/12/2024 CREATININE 0.90 04/12/2024 EGFR 89 04/12/2024 Lab Results Component Value Date WBC 4.91 04/12/2024 HCT 40.8 (L) 04/12/2024 HGB 13.1 (L) 04/12/2024 PLT 155 04/12/2024 Lab Results Component Value Date AST 13 04/12/2024 ALT 6 04/12/2024 ALKALINE PHOSPHATASE 63 04/12/2024 TOTAL BILIRUBIN 0.4 04/12/2024 DIRECT BILIRUBIN <0.2 12/17/2021 Lab Results Component Value Date VALPROIC ACID 62.7 12/03/2023 documented in this encounter Plan of Treatment Upcoming Encounters Date Type Department Care Team (Late st Contact Info) Description 08/24/2024 Procedure Pass Echo Lab [address] [place] [address] 02/15/2025 1:00 PM EDT Office Visit [facility] Allergy [place] [address] [facility], 4th Floor, [address] [place] [address] Radha Garcia MD 55 [facility] [address] [place] [address] 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 in this encounter Care Teams Vp Software Relationship Specialty Start Date End Date Ezra Denney NP [address] [facility] [place] [address] PCP - General Family Medicine 07/07/19 Tony Miranda MD [email or web address] Historical LMR Provider 02/20/17 Jamie Soto MD [address] [place] [address], [facility] [address] [place] [address] [email or web address] Historical LMR Provider 02/20/17 Rinku Carrizales MD [address] [place] [address] [email or web address] Historical LMR Provider 02/20/17 documented as of this encounter Additional Source Comments The information contained in this document represents components of the legal health record. It is not the complete legal health record.[facility]
--- OUTSIDE RECORDS SUMMARY | 2025-01-04 13:06 | XMS_ITS | Encounter Summary ---
Author Organization [facility] Address [address] [place] [address] Phone Care Team Providers Care Payroll Associate Name Role Phone Tony Miranda MD Unavailable Jamie Soto MD Unavailable Rinku Carrizales MD Unavailable [phone] Ezra Denney POLICY ADVISER Primary Care Provider + Encounter Details Date Type Department Care Team (Late st Contact Info) Description 12/17/2021 Procedure Pass Echo Lab [address] [place] [address] Social History Tobacco Use Types Packs/Day Years [...] Info) Description 08/24/2024 Procedure Pass Echo Lab [place] [place] [address] 02/15/2025 1:00 PM EDT Office Visit [facility] Allergy [place] [address] [facility], 4th Floor, [address] [place] [address] Radha Garcia MD 55 [facility] [address] [place] [address] [email or web address] 05/03/2025 11:15 AM EST Office Visit [facility] [address] [place] [address] 3rd Floor, [address] [place] [address] Tony Sargent, DO [address] [address] 08/24/2025 11:15 AM EDT Appointment Echo Lab [address] [address] Tony Sargent, DO [address] [address] documented as of this encounter Visit Diagnoses Not on filedocumented in this encounter Care Teams Payroll Associate Relationship Specialty Start Date End Date Ezra Denney NP [facility] [place] [address] PCP - General Family Medicine 07/07/19 Tony Miranda MD [email or web address] Historical LMR Provider 02/20/17 Jamie Soto MD [address] [place] [address], [address] [address] [email or web address] Historical LMR Provider 02/20/17 Rinku Carrizales MD [address] [place] [address] [email or web address] Historical LMR Provider 02/20/17 documented as of this encounter Additional Source Comments The information contained in this document represents components of the legal health record. It is not the complete legal health record.[facility]
--- OUTSIDE RECORDS SUMMARY | 2025-01-04 13:06 | XMS_ITS | Encounter Summary ---
Author Organization [facility] Address [address] [place] [address] Phone Care Team Providers Care Metalworker Name Role Phone Tony Miranda MD Unavailable Jamie Soto MD Unavailable Rinku Carrizales MD Unavailable [phone] Ezra Denney PRODUCT FINISHER Primary Care Provider + Encounter Details Date Type Department Care Team (Late st Contact Info) Description 09/25/2023 Procedure Pass Non-Invasive Cardiology [address] [place], [place] [id number] Social History Tobacco Use Types Packs/Day Years [...] Info) Description 08/24/2024 Procedure Pass Echo Lab [address] [place] [address] 02/15/2025 1:00 PM EDT Office Visit [facility] Allergy [place] [address] [facility], 4th Floor, [address] [place] [address] Radha Garcia MD 55 [facility] [address] [place] [address] [email or web address] 05/03/2025 11:15 AM EST Office Visit [facility] [address] 3rd Floor, [address] [place] [address] Tony Sargent, [address] [address] 08/24/2025 11:15 AM EDT Appointment Echo Lab [place] [address] [place] [address] Tony Sargent, DO [address] [place] [address] [place] [address] documented as of this encounter Visit Diagnoses Not on filedocumented in this encounter Care Teams Metalworker Relationship Specialty Start Date End Date Ezra Denney NP [address] [facility] [place] [address] PCP - General Family Medicine 07/07/19 Tony Mirnada MD [email or web address] Historical LMR Provider 02/20/17 aJmie Soto MD [address] [place] [address], [facility] [address] [place] [address] [email or web address] Historical LMR Provider 02/20/17 Rinku Carrizales MD [address] [place] [address] [email or web address] Historical LMR Provider 02/20/17 documented as of this encounter Additional Source Comments The information contained in this document represents components of the legal health record. It is not the complete legal health record.[facility]
--- OUTSIDE RECORDS SUMMARY | 2025-01-04 13:07 | XMS_ITS | Encounter Summary ---
Author Organization [facility] Address [address] [place] [address] Care Team Providers Care Haircutter Name Role Phone Mamadou Loving Primary Care Provider [phone] Zackary Martinez MD Unavailable Encounter Details Date Type Department Care Team (Late st Contact Info) Description 04/07/2017 Scanned Document [facility] [place] [address] Marco Lopez MD [address] [address] Social History Tobacco Use Types Packs/Day Years [...] on filedocumented in this encounter Care Teams Haircutter Relationship Specialty Start Date End Date Mamadou Loving [address] [place] [address] [place] [address] PCP - General Medicine Hospitalist 03/26/17 Zackary Martinez MD [address] [place] [address] [place] [address] Cardiovascular Disease 04/03/17 documented as of this encounter
--- OUTSIDE RECORDS SUMMARY | 2025-01-04 13:07 | XMS_ITS | Clinical Summary ---
Author Organization [facility] Address [address] [place] [id number] Phone Care Team Providers Care Circular Distributor Name Role Phone Tony Miranda MD Unavailable Jamie Soto MD Unavailable [phone] Rinku Carrizales MD Unavailable [phone] Ezra Denney FIBER GLASS WORKER Primary Care Provider + Allergies Active Allergy Reactions Criticality Noted Date Comments Penicillins Hives Medium 03/26/2017 Tolerated test dose and full dose of cefepime this admission (09/02/2018) and cefazolin (09/07/18), can use without restriction Tramadol Shortness Of Breath High 01/28/2018 Medications rosuvastatin (CRESTOR) 40 MG tablet 1 tablet Active ezetimibe (ZETIA) 10 mg tablet Take 10 mg by mouth. Active levothyroxine (SYNTHROID, LEVOTHROID) 200 MCG tablet Take 250 mcg by mouth as directed. 250 mcg 4 days a week 200 mcg 3 days a week Active pantoprazole (PROTONIX) 40 MG tablet Take 40 mg by mouth. Active PARoxetine (PAXIL) 40 MG tablet Take 30 mg by mouth every morning. Active apixaban (ELIQUIS) 5 mg tablet Take 1 tablet (5 mg total) by mouth 2 (two) times a day. 9 Active ascorbic acid, vitamin C, (VITAMIN C) 500 mg Chew Take 500 mg by mouth daily. Active vitamins A,C,Y-vsul-wxein r (PRESERVISION AREDS) [id number] xeos-te-rftn Cap Take 1 capsule by mouth 2 (two) times a day with meals. Active JARDIANCE 10 mg tablet Take 10 mg by mouth every morning. 3 Active acetaminophen (TYLENOL) 325 mg tablet Take 2 tablets by mouth. 3 Active cyanocobalamin (VITAMIN B-12) 1,000 mcg/mL injection 3 Active levothyroxine (SYNTHROID,LEVOT HROID) 25 MCG tablet Take 50 mcg by mouth every morning. Active OYSTER SHELL CALCIUM 500 500 mg calcium (1,250 mg) tablet Take 1 tablet by mouth 2 (two) times a day. 4 Active alendronate (FOSAMAX) 70 MG tablet Take 1 tablet (70 mg total) by mouth every 7 days. Take in the morning with a full glass of water, on an empty stomach, and do not take anything else by mouth or lie down for the next 30 min. 15 tablet 2 4 Active midodrine (PROAMATINE) 5 MG tablet Take 2 tablets (10 mg total) by mouth 2 (two) times a day. 360 tablet 3 4 Active thiamine (VITAMIN B-1) 100 MG tablet Take 100 mg by mouth daily. Active clopidogrel (PLAVIX) 75 mg tabletIndication s:Medication refill TAKE 1 TABLET(75 MG) BY MOUTH EVERY NIGHT AT BEDTIME 90 tablet 3 4 Active divalproex (DEPAKOTE) [address] tablet TAKE 1 TABLET(500 MG) BY MOUTH TWICE DAILY 180 tablet 5 Active nitroglycerin (NITROSTAT) 0.[address] 1 TABLET UNDER THE TONGUE EVERY 5 MINUTES NEEDED FOR CHEST PAIN 25 tablet 1 5 Active metoprolol succinate (TOPROL-XL) 25 MG 24 hr tabletIndication s:Medication refill Take 0.5 tablets (12.5 mg total) by mouth daily. 45 tablet 3 5 Active modafiniL (PROVIGIL) 100 MG tabletIndication s:Autoimmune encephalitis Take 1 tablet (100 mg total) by mouth daily. 30 tablet 5 5 Active calcium carbonate-vitami n D3 1,500 mg (600 mg elemental)-800 units Tab Take 1 tablet by mouth 2 (two) times a day with meals. 60 tablet 5 5 Active isosorbide mononitrate (IMDUR) 30 MG 24 hr tablet Take 30 mg by mouth daily. 5 Active ranolazine (RANEXA) 500 MG 12 hr tablet Take 500 mg by mouth 2 (two) times a day. Active dofetilide (TIKOSYN) 250 MCG capsuleIndicatio ns:Medication refill Take 1 capsule (250 mcg total) by mouth daily. 5 Active mirtazapine (REMERON) 7.5 MG tablet Take 7.5 mg by mouth nightly at bedtime. Active cholecalciferol (VITAMIN D3) 25 MCG (1,000 unit) tablet Take 2 tablets by mouth every morning. 5 Active LORazepam (ATIVAN) 1 MG tablet TAKE 1/2 TABLET BY MOUTH THREE TIMES DAILY 5 Active ASPERCREME, LIDOCAINE, 4 % APPLY 1 PATCH TOPICALLY FOR 12 HOURS ON THEN 12 HOURS OFF 5 Active memantine (NAMENDA) 5 MG tablet Take 1 tablet (5 mg total) by mouth 2 (two) times a day. 60 tablet 5 5 06/06/19 26 Active predniSONE (DELTASONE) 20 MG tablet Take 3 tablets (60 mg total) by mouth daily with breakfast for 28 days, THEN 2.5 tablets (50 mg total) daily with breakfast for 7 days, THEN 2 tablets (40 mg total) daily with breakfast for 7 days, THEN 1.5 tablets (30 mg total) daily with breakfast for 7 days, THEN 1 tablet (20 mg total) daily with breakfast for 7 days, THEN 0.5 tablets (10 mg total) daily with breakfast for 7 days. 137 tablet 5 12/09/19 25 Discontin ued(No longer taking) dapsone 100 MG tablet Take 1 tablet (100 mg total) by mouth daily. 90 tablet 5 12/09/19 25 Discontin ued(No longer taking) Active Problems Problem Noted Date Diagnosed Date ICD (implantable cardioverter-defibrillator) in place 11/16/2024 Assessment & Plan (11/22/2024 11:19 AM EDT): Device interrogated today. 5.7 yr battery life. RV pacing and sensing stable. RETREAD MOLD OPERATOR <1%. No episodes noted. No parameter changes. Plan: Continue remote checks Plan for upgrade Assessment & Plan (11/16/2024 12:11 PM EDT): Recent remote interrogation done on 07/2024-[place], ICD HF report, WNL. Available HF diagnostics and trends do not indicate fluid accumulation/HF decompensation. I am going to have him see Traci after in person interrogation at her next follow- up. We will continue with remote interrogations every 3 months and in person interrogations once a year. It was reported during visit [facility] hospitalization If no decent revascularization options on cardiac catheterization, may need to discuss with the EP whether a VERIFICATION LEAD upgrade would be indicated for the patient in this context given baseline bradycardia and bifascicular block with wide QRS in light of underlying ischemic cardiomyopathy . Patient to follow-up with EP. Cardiac murmur, unspecified 08/24/2024 Medication refill 08/24/2024 Orthostatic hypotension 06/17/2024 Assessment & Plan (08/24/2024 12:19 PM EDT): This is greatly improved and not really requiring any midodrine Assessment & Plan (07/07/2024 1:02 PM EST): hospitalized at [facility] 05/22 through 05/30/2024 Status post mechanical fall in his bathroom at home 05/22 and was also found to have influenza A and hypotension. Please see full report for details. He was discharged with continued midodrine 3 times daily which he is no longer taking regularly and only if systolic less than 120. His home Lasix and Entresto were held due to hypotension, but vitals allow adding back in low-dose Entresto twice daily today. BMP ordered for 1 to 2 weeks. Continued on his additional medical therapy. Metoprolol dose currently 12.5 mg daily. Discussed adding back in Lasix as well, but will start with Entresto monitor vital signs at home with this change. Check labs in a week. Heart failure teaching reviewed and patient will call the office with any symptom change, weight gain, etc. at which time may need to add back in Lasix. Patient is trying to hydrate. Has previously scheduled follow-up in approximately 6 weeks in our office. Assessment & Plan (06/17/2024 5:16 PM EST): hospitalized at [facility] 05/22 through 05/30/2024 Status post mechanical fall in his bathroom at home 05/22 and was also found to have influenza A and hypotension. Please see full report for details. He was discharged with continued midodrine 3 times daily which he is taking. Still holding Home Lasix, Entresto. States has not taken Imdur months before this. Treated with Tamiflu for flu A. Continued on clopidogrel rosuvastatin apixaban metoprolol Jardiance, dofetilide at lower dose. Blood pressure today 90s systolic in the office although patient and endorse that blood pressures at home have been pretty good and up to 120s systolic. Patient is trying to hydrate. Unsure why this patient was so hypotensive during this time, consider acute sickness with flu. However, has remained somewhat hypotensive today and mildly bradycardic as well, suggested reducing the metoprolol by half from 25 to 12.5 mg. However, patient does not wish to make any other med changes and will monitor vitals at home over the next 4 weeks and then to come back for an office visit in 1 month at which time we can reevaluate, or sooner should symptoms change or worsen. 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 He is on high doses of prednisone and he needs to take Bactrim Friday. There are multiple side effects being identified by the pharmacist and would not refill furosemide or clopidogrel. He needs these other medications for his heart and should not be discontinued at the recommendation of the pharmacist. He has been tolerating these medications without any issues. He is planning on starting IVIG in the next upcoming weeks. Tardive dyskinesia 10/29/2022 Assessment & Plan (10/29/2022 2:40 PM EDT): The patient has had Sudden irregular movements made by his face and body. This appears to be tar dive dyskinesia or something similar. The patient is also having a lot of issues with memory. The patient has been seen by neurology at [place] and they have not been able to determine a cause for his symptoms. I wonder if his Paxil or trazodone are playing a role in his symptoms. I have suggested that the patient see another neurologist. I have sent a referral to Dr. Jacobs's office in [place]. Encounter for monitoring amiodarone therapy 12/03 Assessment & Plan (12/17/2021 11:52 AM EDT): We will check a hepatic panel and a TSH. History of difficult intubation 09/03/2018 Cardiac arrest 09/02/2018 CAD (coronary artery disease) 06/27/2018 Assessment & Plan (06/27/2018 1:34 AM EST): Discussed SPOT WORKER PCI of LAD and LCx as above. - CTA a/p and coronary CT - Schedule SPOT WORKER PCI afterwards - Start ranexa - Continue ASA, statin, ezetimibe, BB Tobacco abuse 06/27/2018 Assessment & Plan (09/01/2018 2:30 PM EDT): Still smoking cigars. - complete tobacco cessation advised Assessment & Plan (06/27/2018 1:31 AM EST): Currently still smoking cigars. Quit cigarettes. Urged to quit and counseled. Acute on chronic combined sy stolic and diastolic congestive heart failure 06/12/2018 Assessment & Plan (08/24/2024 12:18 PM EDT): This patient has preserved ejection fraction and no heart failure admissions Assessment & Plan (04/15/2024 9:53 AM EST): He is euvolemic on exam and has no symptoms of heart failure at this time. Assessment & Plan (12/10/2023 11:57 AM EDT): Currently euvolemic Assessment & Plan (07/28/2023 1:49 PM EDT): Currently he is euvolemic on exam. He is on Entresto 24-26 mg daily, Jardiance 10 mg daily, furosemide 20 mg daily which he will continue for now. He is strongly encouraged to follow a low-sodium diet and to weigh himself daily. We did potentially discuss reducing his furosemide to 10 mg daily to see how he does with the goal of maybe getting rid of this medication due to this being one of the other medications that the pharmacist recommend that he no longer take being on Bactrim which he needs for encephalitis. He has tolerated all these medications in the past and is doing well on them otherwise would not make any changes at this time. Assessment & Plan (12/17/2021 11:51 AM EDT): He reports that he feels better now than he has in a long time. We will get an echocardiogram to check on his heart function. He has not had any chest pain or shortness of breath. No edema. Assessment & Plan (04/25/2020 2:57 PM EST): Very well compensated. Ejection fraction improved and proBNP low. Assessment & Plan (11/09/2019 2:54 PM EDT): No clinical evidence of heart failure. Assessment & Plan (03/01/2019 11:45 AM EDT): Appears euvolemic. I believe this is a lowest proBNP he has had in some time and it is now normal. I have asked him to undergo an echocardiogram. I have made no medication changes. Assessment & Plan (01/08/2019 12:50 PM EDT): Euvolemic on exam. Assessment & Plan (11/24/2018 1:22 PM EDT): No evidence of phlegm overload on exam, continue current dose to spinal lactone, I have decreased Lasix to once daily. Assessment & Plan (11/03/2018 2:16 PM EDT): No evidence of overload on exam, continue current dosage of spironolactone and furosemide, may downtitrate furosemide at next visit. Assessment & Plan (06/12/2018 10:47 AM EST): He has had considerable weight gain since his last visit but I can find no evidence of edema. His proBNP is now normal and his exam includes clear lungs and no orthopnea or nocturnal dyspnea. Paroxysmal atrial fibrillation 01/28/2018 Assessment & Plan (12/15/2024 9:57 AM EDT): Asymptomatic and on Eliquis Assessment & Plan (11/22/2024 11:18 AM EDT): Pt is currently managed on Eliquis and dofetilide. Pt is tolerating these medications well. I recommend considering an atrial lead when implanting a VERIFICATION LEAD-D to monitor AF burden. Plan: Continue Eliquis Continue dofetilide Assessment & Plan (11/16/2024 12:13 PM EDT): No symptoms in regards to his A-fib. Patient will continue on Tikosyn 50 mcg daily and Eliquis 5 mg twice daily. Assessment & Plan (08/24/2024 12:19 PM EDT): Completely asymptomatic on Eliquis 5 twice a day Assessment & Plan (04/15/2024 9:53 AM EST): He is anticoagulated on Eliquis 5 mg twice daily Assessment & Plan (12/10/2023 11:57 AM EDT): Asymptomatic and protected with Eliquis Assessment & Plan (07/28/2023 1:51 PM EDT): Has a history for paroxysmal atrial fibrillation is rate controlled on his current medications of Tikosyn 2050 mg twice daily, metoprolol 25 mg daily. I did suggest he take his metoprolol at night due to him being awake most of the night and having daytime sleepiness. He does take multiple naps throughout the day. His states that he spends 80% of his time in his bed. He is anticoagulated on apixaban 5 mg twice daily. He will continue his medication without change. His does express concern of taking midodrine 10 mg 3 times daily and states she is only able to get this into him twice a day instead of 3 times a day. I did discuss with her that midodrine is used for hypotension and/or dizziness both of which she is not having. His blood pressure is 104/60 here in the office today. She could try to withhold this medication and see how he does with his blood pressures but if she has blood pressures less than 100 systolically he will need to be on the midodrine. He is on multiple cardiac medications due to his ischemic cardiomyopathy and multiple stents placed to his heart. There will be no changes to his cardiac medications today. Assessment & Plan (10/29/2022 2:35 PM EDT): Patient has a history of paroxysmal atrial fibrillation. He will continue to take amiodarone and Eliquis. Assessment & Plan (08/05/2022 2:51 PM EDT): The patient has a history of paroxysmal atrial fibrillation. Continue amiodarone and Eliquis. TSH and LFTs were normal last year. We will order a new set of labs at his next follow-up. Assessment & Plan (12/17/2021 11:51 AM EDT): He is on Eliquis which she will continue to take 5 mg twice daily. He will continue his current dose of metoprolol. Assessment & Plan (03/14/2021 2:00 PM EST): He is rate controlled on metoprolol 50 mg daily as well as being anticoagulated with Apixaban 5 mg twice daily. He will be having a right total knee replacement performed in July 2021. He will need to come in for cardiac clearance prior to the surgery in June 2021. It is too early for him to have his cardiac clearance at this time. We will check his device again when he is here in June and will continue 3-month remote checks of his ICD. Assessment & Plan (04/25/2020 2:58 PM EST): No significant episodes. Anticoagulated on Eliquis and rate controlled on metoprolol. Assessment & Plan (11/09/2019 2:55 PM EDT): Presently in sinus. His device will be interrogated Assessment & Plan (07/07/2019 1:56 PM EST): Maintaining sinus rhythm. Anticoagulated on dual antiplatelet therapy. No bleeding but I would consider stopping his aspirin sometime in the next 6 months. Assessment & Plan (03/01/2019 11:46 AM EDT): Presently in sinus. Assessment & Plan (01/08/2019 12:50 PM EDT): He has a history of paroxysmal atrial fibrillation, remains on Eliquis for antiregulation and beta-blockers for rate control. Assessment & Plan (12/17/2018 2:11 PM EDT): He has history of paroxysmal H fibrillation. He remains is currently on Eliquis. Denying palpitations. No bleeding issues. Assessment & Plan (11/24/2018 1:22 PM EDT): Has a history of paroxysmal atrial fibrillation. Amiodarone stopped while at [facility] due to absence of atrial fibrillation. Remains anticoagulated on Eliquis, currently denying palpitations. Assessment & Plan (11/03/2018 2:16 PM EDT): Had a history of paroxysmal atrial fibrillation. Amiodarone stopped while at [facility] due to absence of atrial fibrillation. Remains anticoagulated on Eliquis. Currently denies palpitations. Assessment & Plan (09/18/2018 10:04 AM EDT): Rhythm control and anticoagulation strategy on amiodarone 400 mg daily, metoprolol, and rivaroxaban FLOAT OPERATOR. CHADSsVASC 4. - remains in SR and amiodarone stopped - no prior bleeding problems on ASA and rivaroxaban - he will need assisted AC - switched to apixaban per PARVEEN Trial, aspirin resumed and on Plavix - will aim for Plavix and apixaban with PPI at time of discharge and continue Triple RX (apixaban, asa, Plavix) until hospital discharge Assessment & Plan (06/27/2018 1:28 AM EST): In sinus rhythm on amiodarone. Anticoagulated with rivaroxaban. No bleeding. CHADS-Vasc =4. Assessment & Plan (06/12/2018 10:48 AM EST): In sinus rhythm on amiodarone. Assessment & Plan (03/12/2018 9:48 AM EST): On anticoagulation and rate control medications. In sinus rhythm today and no clinical evidence of recurrence. Assessment & Plan (01/28/2018 4:45 PM EDT): ECG confirms sinus rhythm today at a rate of 55 with left axis and right bundle branch block which are old. Recent interrogation of his device did not reveal any high rate episodes. I am going to continue him on amiodarone at 200 mg a day. I will bring him back in about 6 weeks and will have a TSH, LFTs and a metabolic profile drawn. Recent labs were fine including renal and hepatic function. Lipid profile included an LDL of 76 with an HDL of 56 and triglycerides 132. Coronary artery disease of b ypass graft of cher-ae heights heart with stable angina pectoris 04/09/2017 Overview (10/27/2018): 1994 CABG X 5 2001 PCI REYNA X 7 SVG X RCA 2003 PCI REYNA X 2 OM TO SVG RCA 2007 CATH HARTLEY/SVG OM PATENT EF 2016 CATH LAD DISTAL WORSE EF35 GRAFTS SAME 09/2018 PCI UNS TO LAD & RCA; REYNA TO MID LAD VIA HARTLEY EF 20% IMPELLA; EXPL R GROIN Assessment & Plan (12/15/2024 9:57 AM EDT): This patient had a bypass operation in 1993 and then multiple PCI's. His last stress test shows infarcted area with no evidence of ischemia he has been getting angina and is on high dose or I should say the higher maintenance dose of ranolazine Assessment & Plan (11/22/2024 11:13 AM EDT): S/p CABG and multiple stents. Pt is asymptomatic at this time. No changes in management. Assessment & Plan (11/16/2024 12:14 PM EDT): Patient has had multiple [facility] visits due to chest pain. [facility] cardiac cath on October 20, 2024-He recently a had cardiac cath procedure on 10/20/2024 which showed continued patency of HARTLEY-LAD and occluded cher-ae [place] vessels and bypass grafts. It did not find targets for PCI. ACC Diagnostic Recommendations: Medical therapy and/or counseling. Dr. Gómez consulted on patient's and it was reported if patient has no decent revascularization options on cardiac catheterization, may need to discuss with the EP whether a VERIFICATION LEAD upgrade would be indicated for the patient in this context given baseline bradycardia and bifascicular block with wide QRS in light of underlying ischemic cardiomyopathy. I am going to have patient follow-up with EP in regards to this. Dr. Gómez also noted that patient may be someone who would be a candidate for enrollment in thecosira trial (coronary sinus production control technologist) given his ongoing chest pain with no good pci targets . I have sent Dr. Gómez a message in regards to this trial as I am not familiar with this trial. I will touch base with pt once I hear back from Dr. Gómez. I have asked pt to also FU with Dr. Sargent in regards to this trial as well. Patient has been asymptomatic since leaving the hospital. Patient will continue on current medications without change. Assessment & Plan (04/15/2024 9:52 AM EST): . Will continue to optimize his cardiac risk factors. He did have a emergency room visit back February 2024 at [facility] with chest discomfort. He did rule out for ACS at that time. He was discharged home without admission. He is encouraged follow heart healthy including low-sodium and to exercise. SBP goal less than 130/80. LDL goal less than 70 mg/dL. Assessment & Plan (07/28/2023 1:48 PM EDT): He has extensive coronary artery disease with multiple stents and a CABG. He is on clopidogrel 75 mg daily and apixaban 5 mg twice daily. Is recommended that he stay on the clopidogrel 75 mg daily due to his multiple stents that were placed in his heart. Apparently the pharmacy is giving him a hard time due to side effects with multiple medications however this medication really should not be discontinued per pharmacist. Assessment & Plan (10/29/2022 2:37 PM EDT): The patient had coronary artery bypass grafting x5 in 1993. He then had multiple angioplasties/stents. He is currently feeling well with no chest pain. We will continue to optimize his risk factors. The patient will continue to take his statin and Plavix. Assessment & Plan (08/05/2022 2:43 PM EDT): The patient has a history of coronary artery disease and has had coronary artery bypass grafting years ago followed by multiple stents to the bypassed arteries. He tells me that he has not had any chest pain. Occasionally he gets short of breath with exertion but it resolves quickly with rest. We will continue to optimize his risk factors. Blood pressure in the office today is normal. Continue Crestor. Assessment & Plan (12/17/2021 11:50 AM EDT): Patient has a history of coronary artery disease and had coronary artery bypass years ago followed by multiple stents to his bypassed arteries. He reports that he currently feels well. He has not had any issues with chest pain or shortness of breath. We will continue to optimize his risk factors. Blood pressure in the office today is normal. Continue with current dose of Crestor. Assessment & Plan (06/18/2021 1:05 PM EST): Has a significant history for coronary artery disease with multiple stenting in a bypass surgery. He currently denies any symptoms from a cardiac standpoint. He is on isorbide nitrate 60 mg daily, Entresto 97-103 mg twice daily, clopidogrel 75 mg daily, metoprolol 50 mg daily, rosuvastatin 40 mg daily, spironolactone 1225 mg daily. He does report having some hypotension at home with blood pressures in the 80s and 90s with some lightheadedness. He states he drinks about 30 ounces of water a day and is on a diuretic. He was asked to increase his fluid intake particularly when he is having episodes of low blood pressure to see if this does not help. We will also reduce his spironolactone to 12.5 mg daily today in an effort to increase his blood pressures. Assessment & Plan (03/14/2021 1:59 PM EST): CABG times 09/20/1993 PCI drug-eluting x7 SVG X RCA 2001 PCI drug-eluting stent x2 OM 2 SVG RCA 2003 Cath HARTLEY/SVG OM patent EF 25% 2007 Cath distal LAD worse EF 35 graft same 2017 PCI UMS to LAD and RCA; REYNA to mid LAD via HARTLEY EF 20% Impella; explore right groin 2018 He is asymptomatic for any coronary artery disease at this time. He will remain on clopidogrel 75 mg daily without change. Assessment & Plan (04/25/2020 2:57 PM EST): No angina and reasonably active. He is off his Imdur without consequence. Assessment & Plan (11/09/2019 2:54 PM EDT): Continuing to do very well. I am going to attempt to continue his clopidogrel long-term in addition to his Eliquis. I have also asked him to have his echocardiogram repeated before his next visit here in several months. I have discontinued his isosorbide. Assessment & Plan (07/07/2019 1:55 PM EST): No angina. Mildly hypotensive but asymptomatic. I have discontinued his isosorbide mononitrate and he knows to call if becomes dyspneic or has episodes of angina. Assessment & Plan (03/01/2019 11:44 AM EDT): Essentially no angina. Assessment & Plan (01/08/2019 12:49 PM EDT): Currently denying chest pain and shortness of breath. Continues on isosorbide 30 mg daily without any chest symptoms. He is not on aspirin as he is anticoagulated on Eliquis, he will remain on clopidogrel for 1 year post stent placement. Assessment & Plan (12/17/2018 2:11 PM EDT): Currently denying chest pain short of breath. He remains on 30 mg isosorbide with no chest discomfort. He is not on aspirin as he states regular on Eliquis. He will remain on clopidogrel for 1 year after stent placement. We will continue to optimize his risk factors. Continue current statin. Assessment & Plan (11/24/2018 1:21 PM EDT): Was recently at [facility] for stenting of totally occluded vessels. SPOT WORKER PCI was unsuccessful, mid LAD PCI successful. Procedure was comp gated by cardiac arrest, status post ICD shock x4, patient required intubation and Impella placement. Patient had prolonged stay of 6 weeks involving time in CCU. He completed rehab in [place] and did well. Currently denying chest pain and shortness of breath. I have further down titrated his isosorbide to 30 mill grams daily to make room to uptitrate his Entresto. Not on aspirin due to anticoagulant Eliquis and clinical for 1 year after stent placement. Continue current statin, will continue to optimize risk factors. Assessment & Plan (11/03/2018 2:22 PM EDT): Was recently at [facility] for stenting of totally occluded vessels. SPOT WORKER PCI was unsuccessful, mid LAD PCI successful. Procedure complicated by cardiac arrest, status post ICD shock x4, patient intubated and Impella placed. Patient had prolonged stay of 6 weeks involving time in the the CCU. He has completed rehab in [place] facility and did well. In the office no complaints of angina. No shortness of breath seems to be doing quite well. Will down titrate isosorbide to accommodate for Entresto. May end up discontinuing his medication altogether in favor of uptitrating other medications for cardia myopathy. Not on aspirin due to anticoagulation with Eliquis and continue clopidogrel for 1 year after stent placement. Continue current statin, will continue to optimize risk factors. Assessment & Plan (09/18/2018 10:03 AM EDT): Ischemic CM EF 34%, CCS 3-4 angina/dyspnea, CTOs of all cher-ae heights vessels and SVG- RCA and SVG-OM. Stress test 08/26/18: large severe mixed defect AL reinoso & severe fixed defect INF and basal to mid IL wall. LVEF 34%. Admitted for RCA SPOT WORKER PCI and LAD PCI 09/02/18: Procedure c/b cardiac arrest, VF s/p ICD shock x 4, requiring intubation and Impella. SPOT WORKER PCI was unsuccessful, mid LAD PCI successful with placement of Orsiro REYNA. R fem Impella placement, bilateral groin hematomas and bleeding requiring emergent surgical repair of hole in L femoral artery and multiple transfusions. Impella out 09/04 and R groin US negative for PSA/AVF. - 09/07 echo LVEF 38% with diffuse HK. Borderline RA dilation. Mild MR. Trace TR. - 09/10 extubated, off pressors - 09/11 transfer SDU. No further SVTs. ECGs show marked STD anteriorly but no CP. Severe scrotal swelling. VAC L groin s/p surgical repair. Delirium. Intermittent tachypnea. - 09/18 Mental status slowly improving. No further PCI planned. 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 -- Continue rosuvastatin 40 mg daily -- Continue triple Rx (ASA, Plavix, apixaban) until [facility] then stop aspirin and continue PPI -- VAC change due Friday and aiming for rehab soon. -- Continue diuresis -- PT following -- On good CMP regimen (metop ER, spironolactone, lisinopril, Lasix, nitrates). Assessment & Plan (06/12/2018 10:47 AM EST): We had a discussion about the possibility of a complex percutaneous intervention on diffusely diseased and totally occluded vessels. He is angiogram has been reviewed although it is unclear to me whether he has actually seen the disc, by Dr. York who has told Dr. Guerra that there may be percutaneous options for approaching his anatomy. Don has not been better than he is right now. He is sober and his proBNP is now normal. He would at least like to meet with Dr. York to discuss his options so I will have a copy of this note forwarded to him. Assessment & Plan (03/12/2018 9:48 AM EST): Apparently there is an interventional list at [facility] who has contacted Don about proceeding with an attempt at PCI of a chronic total occlusion. He told him that he would be talking to me but I have not heard from him as of yet. With his symptoms essentially resolved with control of his atrial fibrillation I had what want to know what benefit we can offer before putting down through yet another procedure. Assessment & Plan (01/28/2018 4:43 PM EDT): Before sending down for a complex PCI would like to be sure that his symptoms are not due solely to his recent episode of atrial fibrillation. He has had no symptoms since the atrial fibrillation resolved. His small enzyme spill could certainly be on the basis of demand ischemia considering his overall coronary picture. For now I am going to continue his amiodarone and follow him carefully and he knows to call if he develops any more discomfort. I have allowed him to increase his activity gradually. Assessment & Plan (11/11/2017 2:37 PM EDT): Minimal angina. Scan while significant does not indicate the need for at high risk for revascularization. I have changed his metoprolol 200 mg succinate dose but told him that if his angina increases to increase that back 250 mg. He had been on the tartrate form taking it once a day. Assessment & Plan (09/09/2017 2:20 PM EDT): I do not believe he has any good revascularization options. My plan is to restart his Ranexa at 500 mg twice a day and hold the amlodipine. I've told him to restart it if he continues to have angina after beginning the Ranexa. I have arranged for thank you pharmacologic nuclear stress test to evaluate the degree of ischemia. It are large territories that appear ischemic I will have the films were reviewed at the [facility]. Ischemic cardiomyopathy 04/09/2017 Assessment & Plan (12/15/2024 9:57 AM EDT): This patient has an ejection fraction of 20 to 25% he has had cardiac cardiac arrest in the past and has a defibrillator. This is going to get upgraded to a biventricular ICD. Assessment & Plan (11/22/2024 11:16 AM EDT): Single chamber ICD in situ. Reduced EF at 20-30% despite GDMT. Pt cannot tolerate more GDMT due to hypotension. Will discontinue Entresto today due to significant hypotension. We discussed upgrading his device to a VERIFICATION LEAD-D. We have discussed the r/b/a for implantation of a Chronic Resynchronization Therapy Defibrillator or VERIFICATION LEAD-D. A VERIFICATION LEAD device is used in patients with heart failure to potentially improve the overall pumping function and synchronization of the ventricles. This device is used in conjunction with GDMT as tolerated by the patient. Patients with heart failure may be at increased risk for fatal cardiac arrhythmias including ventricular tachycardia and ventricular fibrillation. A VERIFICATION LEAD with defibrillator function will provide therapy for these life-threatening arrhythmias including an electrical discharge or defibrillation while also providing pacemaker function for potential improvement in ejection fraction and heart failure symptoms. The risks of implantation include bleeding, infection, perforation requiring emergency intervention, vascular injury, pericardial effusion, hemo/pneumothorax, stroke, cardiac arrest, or . The patient is made aware that VERIFICATION LEAD implantation may not improve heart failure symptoms. The patient verbalized understanding of the information provided. The [place] Program for Patient Centered Decisions was utilized during this encounter. Plan: Continue metoprolol Continue Ranexa Continue rosuvastatin Continue clopidogrel Continue Imdur Continue Jardiance Continue Zetia Discontinue Entresto Schedule VERIFICATION LEAD-D Assessment & Plan (11/16/2024 12:12 PM EDT): Most recent echo done at [facility] during hospitalization shows a EF of 20-30% he is pretty euvolemic on exam today. No symptoms concerning for heart failure exacerbation. It was noted that patient's Entresto was stopped during recent hospitalization due to hypotension. Patient and his have been checking blood pressures at home they have been pretty stable so I am going to start patient back up on his Entresto 24-26 mg twice daily. I have asked him to get updated labs in a week. He will continue on metoprolol succinate 12.5 mg daily and Jardiance 10 mg daily. Assessment & Plan (04/15/2024 9:52 AM EST): His ischemic cardiomyopathy has now resolved. He is on Entresto 24-26 mg twice daily, furosemide 10 mg daily, isosorbide has been discontinued due to not tolerating this due to hypotension. He is also on Jardiance 10 mg daily, lisinopril 5 mg daily, Toprol 100 mg twice daily. Assessment & Plan (12/10/2023 11:57 AM EDT): This patient has a low normal ejection fraction and had bypass surgery 30 years ago he was at [facility] with chest pain but was discharged I am going to get him a stress test and follow-up with him thereafter Assessment & Plan (10/29/2022 2:35 PM EDT): He has a history of cardiomyopathy. Most recent echocardiogram shows that his EF had normalized. He will continue to take his Entresto 49/51. His device is functioning properly. We will set him up for a remote device interrogation in 3 months. Programming device evaluation with iterative adjustment of the implantable device to test the function of the device and select optimal permanent programmed values analysis review and report. Assessment & Plan (08/05/2022 2:42 PM EDT): The patient has a history of a cardiomyopathy. His most recent echocardiogram shows that his EF has completely normalized. His device has not been checked since last year. Unfortunately, I did not check the device today. We will have Cristina do a remote interrogation today. I will follow-up with the patient in 2 months to check on his blood pressure. At that point, I will interrogate his device in person. He will continue on his Entresto 49/51. I suggested that he decrease his metoprolol down to 25 mg once daily. He will discontinue his spironolactone. Follow-up in 2 months. Assessment & Plan (01/08/2019 12:50 PM EDT): He is tolerating high-dose Entresto. He remains on beta-steph and spironolactone. No recurrent swelling since Lasix has been DC'd. We will obtain a repeat echocardiogram in 3 months time as he seems to be on maximum tolerated medical therapy. Assessment & Plan (12/17/2018 2:10 PM EDT): He has been doing well on medium dose Entresto. I have placed orders for 7/103 Entresto. I have placed orders for a BMP to be checked within 1 to 2 weeks after starting this new dosage. Of asked him to come back to the office in a month's time to reassess his blood pressure and review his lab work. He remains on a beta- steph and spinal lactone. I have stopped his Lasix at this time as he has no swelling and I want to make room and his blood pressure to tolerate the Entresto. Assessment & Plan (11/24/2018 1:20 PM EDT): He has been doing well with low-dose Entresto, I have uptitrated him to medium dose at this visit. He will have a BMP checked in 1 week's time. He will back in the office to 3 weeks to reevaluate his blood pressure and see if we can uptitrate further. He remains on beta-steph and his spironolactone. I have down titrated his Lasix to 40 mg daily. Assessment & Plan (11/03/2018 2:12 PM EDT): Echocardiogram from September showing reduced EF of 38%, NENA was stopped while at [facility]. We will start him on low-dose Entresto, I have placed an order for a BMP to be rechecked in 1 week's time. I will have him back in the office in 2 weeks to evaluate his blood pressure, will see if we are able to uptitrate at that visit. He is appropriately on a beta-steph, continue current dose of spironolactone and furosemide. May down titrate furosemide at next visit. Assessment & Plan (09/16/2018 12:06 PM EDT): HFrEF (EF - 35%) - Continue NENA and aggressive diuesis. Assessment & Plan (06/27/2018 1:27 AM EST): EF 35-40% with ICD present. Continue ASA, statin, BB, NENA. Assessment & Plan (01/28/2018 4:45 PM EDT): Presently compensated. Last EF was in the 30s. Assessment & Plan (09/09/2017 2:19 PM EDT): Ejection fraction has been somewhere in the mid 30s which is very similar to what he had previously. Clinically he had little if any congestive heart failure. Mixed hyperlipidemia 04/09/2017 Assessment & Plan (08/24/2024 12:19 PM EDT): I ordered an A1c and a lipid panel LDL should be less than 70 mg/dL A1c should be less than 7 Assessment & Plan (12/10/2023 11:57 AM EDT): LDL should be less than 70 he is on high intensity statin therapy Assessment & Plan (07/28/2023 1:49 PM EDT): Continue Zetia 10 mg daily. Assessment & Plan (10/29/2022 2:37 PM EDT): Continue rosuvastatin. Assessment & Plan (12/17/2021 11:52 AM EDT): Continue rosuvastatin. Assessment & Plan (03/14/2021 2:00 PM EST): He will continue on rosuvastatin 40 mg daily. I have asked him to have a lipid panel drawn today Assessment & Plan (04/25/2020 2:58 PM EST): LDL in the 60s and HDL in the 40s. No changes. Assessment & Plan (11/09/2019 2:55 PM EDT): Statin is unchanged. He is agreed to do labs shortly. Assessment & Plan (07/07/2019 1:56 PM EST): Remains on a statin but no recent labs. Assessment & Plan (03/01/2019 11:47 AM EDT): Good profile with an LDL in the 70s HDL almost 50. Renal and hepatic function are normal. Assessment & Plan (11/03/2018 2:17 PM EDT): Continue current statin with a goal LDL of less than 70 mg/dL. Assessment & Plan (09/09/2018 8:58 AM EDT): On rosuvastatin 40 mg and ezetimibe. LDL 76. Assessment & Plan (06/27/2018 1:29 AM EST): On maximal therapy with high dose atorvastatin and ezetimibe. LDL 76 in 01/2018. Continue current therapy. Essential hypertension 04/09/2017 Assessment & Plan (12/15/2024 9:57 AM EDT): Well-controlled at this time Assessment & Plan (11/22/2024 11:17 AM EDT): Blood pressure reduced today and frequently reading below 100mmHg systolic at home. Will discontinue Entresto. Assessment & Plan (04/15/2024 9:53 AM EST): Blood pressure is very well-controlled at 104/58 in fact he has some difficulties with hypotension at times. He will be no medication changes at this time. Assessment & Plan (10/29/2022 2:36 PM EDT): Blood pressure in the office today is adequately controlled. No medication changes. Assessment & Plan (08/05/2022 2:43 PM EDT): See above plan. Blood pressure in the office today is normal but he was recently seen in the emergency department for low blood pressure. I am discontinuing spironolactone and reducing his metoprolol. Assessment & Plan (12/17/2021 11:50 AM EDT): Blood pressure in the office today is normal. Continue current medications. Assessment & Plan (06/18/2021 1:06 PM EST): He currently denies any symptoms from a cardiac standpoint. He is on isorbide nitrate 60 mg daily, Entresto 97-103 mg twice daily, clopidogrel 75 mg daily, metoprolol 50 mg daily, rosuvastatin 40 mg daily, spironolactone 1225 mg daily. He does report having some hypotension at home with blood pressures in the 80s and 90s with some lightheadedness. He states he drinks about 30 ounces of water a day and is on a diuretic. He was asked to increase his fluid intake particularly when he is having episodes of low blood pressure to see if this does not help. We will also reduce his spironolactone to 12.5 mg daily today in an effort to increase his blood pressures. He is to continue checking blood pressures at home and to let us know if his blood pressures do not improve despite drinking water or the reduction in spironolactone, we may need to adjust his other medications. Assessment & Plan (03/14/2021 1:58 PM EST): Blood pressure is well controlled today he is on Entresto 97-103 mg twice daily, spironolactone 25 mg daily which he will remain on. He is also on potassium though I do not understand why he is on spironolactone and potassium however his lastBMP with potassium that was performed in April 2020 was 4.5. Does not appear that he has had any other labs in our system since then. I have asked him to have a BMP and a lipid profile checked today. Assessment & Plan (04/25/2020 2:57 PM EST): Controlled on present therapy. No changes. Assessment & Plan (07/07/2019 1:56 PM EST): Hypotensive today. Assessment & Plan (03/01/2019 11:45 AM EDT): Well-controlled on present therapy. No changes. Assessment & Plan (01/08/2019 12:50 PM EDT): Blood pressure well controlled the office today, no med changes. Assessment & Plan (12/17/2018 2:10 PM EDT): Blood pressure well controlled the office today. I have uptitrated his Entresto further. I have stopped his Lasix today. Assessment & Plan (11/24/2018 1:21 PM EDT): Blood pressure well controlled the office today. I have further decrease his isosorbide to coming up titration of Entresto. Assessment & Plan (11/03/2018 2:15 PM EDT): Blood pressure is well controlled in the office today. I decreased his isosorbide to accommodate for the addition of Entresto. May need to make further adjustments to his medications to accommodate maximum up titration of Entresto. 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 Probable sleep apnea and an outpt sleep study has been ordered in [place]. - his blood pressure remain well controlled as he undergoes IV diuresis. He has resumed his home antihypertensive regime. Assessment & Plan (06/27/2018 1:26 AM EST): Well controlled on Imdur, lisinopril, metoprolol. No further room for uptitration of antianginals. Assessment & Plan (06/12/2018 10:47 AM EST): Controlled on present therapy. No changes. Assessment & Plan (03/12/2018 9:48 AM EST): Controlled on present therapy. AAA (abdominal aortic aneurysm) 04/04/2017 Overview (09/01/2018): s/p EVAR, bilateral ARCHIE stenting [facility] Dr. Lopez Assessment & Plan (08/24/2024 12:18 PM EDT): He had a percutaneous AAA repair in the remote past Assessment & Plan (04/15/2024 9:53 AM EST): 03/15/2024 ECHO: Left ventricular size is normal with mild concentric hypertrophy. And there is no wall motion abnormality. LV EF is 63%. Right ventricular size is normal and contractilty is normal. There is a device lead. Aortic valve is tricuspid and sclerotic. There is no aortic stenosis and trace aortic regurgitation Aortic sinus is mildly dilated at 39 mm Mitral valve is normal: has no mitral stenosis and no mitral regurgitation Tricuspid valve is normal: has trace regurgitation and no stenosis PASP calculated at 15 mmHg No pericardial effusion seen. Assessment & Plan (10/29/2022 2:37 PM EDT): Patient has a history of having an EVAR. We will arrange for an aortic duplex at his next follow-up. Assessment & Plan (08/05/2022 2:56 PM EDT): The patient has a history of having an EVAR. We will get an aortic duplex. Assessment & Plan (09/02/2018 7:55 AM EDT): S/p EVAR 04/2017. CTA shows patent stent and no endoleak. Iliac stents are patent. - No LE claudication and good perfusion to both feet. Resolved Problems Problem Noted Date Diagnosed Date Resolved Date Alcohol abuse 04/09/2017 09/04/2018 Assessment & Plan (09/04/2018 8:39 AM EDT): Assessment & Plan (06/12/2018 10:48 AM EST): Well-controlled. Remains sober and has for some time. Assessment & Plan (03/12/2018 9:49 AM EST): Angelo was seen at an urgent care center because of his ankle and they actually suggested a couple of shots of carlos. Since Angelo decompensates whenever he drinks and is an alcoholic I do not believe this is a great idea. I have given him a small prescription for Percocet without renewal. He is due to see his new primary care physician next week. 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; Essential hypertension; Paroxysmal atrial fibrillation 12/09/2024 Orders Only [facility] [address], [address] [place] [address] Tanner Watkins MD 12/08/2024 11:00 AM EDT Office Visit Division of Immunologic, Inflammatory, and Infectious Neurological Disorders [address] [place] [address], [address] Floor, [address] [place] [address] Zenaida Griffiths MD Autoimmune encephalitis (Primary Dx); Memory loss; Cognitive and behavioral changes 11/25/2024 Orders Only [facility] [address] [facility], [address] [place] [address] Tanner Watkins MD 11/22/2024 9:30 AM EDT Office Visit [facility] [address] [facility], [address] [place] [address] Tarci Gallardo DNP 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 (Primary Dx); Ischemic cardiomyopathy; Essential hypertension; Paroxysmal atrial fibrillation; ICD (implantable cardioverter-defibril lator) in place 11/22/2024 Telephone [facility] [address] [facility], [address] [place] [address] Bobby Rivera MD 11/18/2024 Orders Only [facility] [address] [facility], [address] [place] [address] Tanner Watkins MD 11/15/2024 11:54 AM EDT - 11/15/2024 11:59 PM EDT Hospital Encounter [facility] [address] [place] [address] Jordana Webb MD Discharge Disposition: Home or Self Care 11/15/2024 11:30 AM EDT Office Visit [facility] [address], [address] [place] [address] Radha Peters DNP 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 (Primary Dx); Medication refill; Ischemic cardiomyopathy; ICD (implantable cardioverter-defibril lator) in place; Paroxysmal atrial fibrillation 11/15/2024 Telephone [facility] [address], [address] [place] [address] Radha Peters DNP 11/15/2024 Telephone [facility] [address], [address] [place] [address] Radha Peters, FRANK 10/12/2024 9:00 AM EDT Infusion [facility] [address] [place] [address] Dillon Howard MD Autoimmune encephalitis (Primary Dx); Low CD4 cell count determined by flow cytometry from Last 3 Months Immunizations Immunization Administration Dates Next Due COVID-19 (Pre-02/24) Moderna Vaccine, mRNA, PF 07/05/2020 INFLUENZA, SPLIT VIRUS, TRIVALENT PF 01/03/2015 Influenza High-Dose Quadriva lent Preservative Free IM 02/14/2020 Influenza High-Dose Trivalen t Preservative Free IM 03/05/2019,02/03/2017,02/15/2016 Influenza Quadrivalent w/ Preservative IM 2017 Pneumococcal conjugate PCV13 03/05/2019 Pneumococcal polysaccharide PPSV23 02/15/2016 Family History Medical History Relation Comments CV disease Father CV disease Paternal Grandfather Relation Status Comments Father CAD in his 50s, Paternal Grandfather Social History Tobacco Use Types Packs/Day Years Used Date Smoking Tobacco: Former Cigarettes Cigars Smokeless Tobacco: Never Tobacco Cessation:Counseling Given: Not Answered Comments:occasional cigars Alcohol Use Standard Drinks/Week Comments [...] Orientation Straight 02/18/2023 7: 50 AM EDT Last Filed Vital Signs Vital Sign Reading Time Taken Comments Blood Pressure 106/68 12/15/2024 9:36 AM EDT Pulse 84 12/15/2024 9:36 AM EDT Temperature 36.8 C (98.2 F) 12/08/2024 11:02 AM EDT Respiratory Rate 18 10/12/2024 4:30 PM EDT Oxygen Saturation 95% 12/15/2024 9:36 AM EDT Inhaled Oxygen Concentration 60% 09/09/2018 4 :00 PM EDT Weight 82.6 kg (182 lb) 12/08/2024 11:02 AM EDT Height 178 cm (5' 10.08 ) 12/15/2024 9:36 AM EDT Body Mass Index 26.06 12/08/2024 11:02 AM EDT Plan of Treatment Upcoming Encounters Date Type Department Care Team (Late st Contact Info) Description 08/24/2024 Procedure Pass Echo Lab [address] [place] [address] 02/15/2025 1:00 PM EDT Office Visit [facility] Allergy [address], 4th Floor, [address] [place] [address] Radha Garcia MD [address] [facility] [address] [place] [address] [email or web address] 05/03/2025 11:15 AM EST Office Visit [facility] [address] [place] [address] 3rd Floor, [address] [place] [address] Tony Sargent DO [address] [place] [address] [place] [phone] [email or web address] 08/24/2025 11:15 AM EDT Appointment Echo Lab [address] [place] [address] Tony Sargent, DO [address] [address] [email or web address] Health Maintenance Due Date Last Done Comments Adult Td,Tdap Booster 1950 HEPATITIS C SCREENING 1966 ZOSTER VACCINES (1 of 2) 1998 DEPRESSION SCREENING 09/03/2019 09/02/2018 TSH LEVEL 12/17/2022 12/17/2021, 02/03, 06/11/2018, Additional history exists RSV VACCINE (1 - 1-dose 75+ series) 2023 VALPROIC ACID (DEPAKENE) LEVEL 12/02/2024 12/03/2023 INFLUENZA VACCINE (#1) 2024 , 02/14/2020, 03/05/2019, Additional history exists COVID-19 VACCINE (2024- season) 2025 03/04/2022, 03/09/2021, 08/02/2020, Additional history exists BLOOD PRESSURE 06/17/2025 12/15/2024 CREATININE LEVEL 10/12/2025 10/12/2024, 01/2024, 02/10/2023, Additional history exists SMOKING Hx and SMOKELESS TOBACCO SCREENING 12/08/2025 12/08/2024 PNEUMOCOCCAL VACCINES (50+ years) Completed 11/22/2020, 03/05/2019, 02/15/2016, Additional history exists HEPATITIS A VACCINES Aged Out No long er eligible based on patient's age to complete this topic HIB VACCINES Aged Out No longer eligi ble based on patient's age to complete this topic MENINGOCOCCAL VACCINES (ACWY) Aged Out No longer eligible based on patient's age to complete this topic MENINGOCOCCAL VACCINES (B) Aged Out N o longer eligible based on patient's age to complete this topic Medical Devices Implanted Type Area Director Talent Acquisition Device Identifier Shelf Expiration Date Model / Serial / Lot Medtronic ICD Stent Drug Eluting [id number] [facility] - [id number] Implanted:Qty: 1 on 09/02/2018 by Alyssa York MD, PhD at [facility] Stent [employer]OT[employer] 02/13/2020 [id number] / / [id number] Procedures Procedure Name Priority Date/Time Associated Diagnosis Comments HEMOGLOBIN A1C, [place] SENDOUT Routine 11/15/2024 12:14 PM EDT LIPID PANEL Routine 11/15/2024 12:14 PM EDT Mixed hyperlipidemia LFTS (HEPATIC PANEL) Routine 11/15/2024 12:14 PM EDT Mixed hyperlipidemia Cardiac murmur, unspecified HIV-1/2 ANTIGEN/ANTIBODY Routine 11/15/2024 12:14 PM 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 OUTSIDE EP STUDY Routine 11/11/2024 2:18 PM EDT MONOCLONAL PROTEIN STUDY, SERUM Routine 10/12/2024 9:52 AM EDT CD20 ON B CELLS Routine 10/12/2024 9:52 AM EDT Autoimmune encephalitis FREE LIGHT CHAINS, SERUM Routine 10/12/2024 9:52 AM EDT Autoimmune encephalitis SPEP PANEL Routine 10/12/2024 9:52 AM 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 CD4 T-CELL COUNT Routine 10/12/2024 9:52 AM 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 HC B CELLS TOTAL COUNT Routine 10/12/2024 9:32 AM EDT 25-OH VITAMIN D Routine 10/12/2024 9:32 AM EDT Autoimmune encephalitis COMPREHENSIVE METABOLIC PANEL Routine 10/12/2024 9:32 AM EDT Autoimmune encephalitis CBC AND DIFFERENTIAL Routine 10/12/2024 9:32 AM EDT Autoimmune encephalitis HEPATITIS B SURFACE ANTIGEN Routine 10/12/2024 9:32 AM EDT OUTSIDE EP STUDY Routine 10/07/2024 3:41 PM EDT VALPROIC ACID Routine 12/03/2023 1:36 PM EDT Autoimmune encephalitis TSH WITH REFLEX Routine 12/17/2021 11:58 AM EDT Encounter for monitoring amiodarone therapy from Last 3 Months or Most Recently Relevant to Health Maintenance Results * (ABNORMAL) HEMOGLOBIN A1C, [place] SENDOUT (11/15/2024 12:14 PM EDT) HEMOGLOBIN A1C <4.0(L) 4.0 - 5.6 % [facility] DPT OF LAB MED AND PAT+ Comment: (NOTE) Falsely low HbA1c results may be observed in patients with clinical conditions that shorten erythrocyte life span or decrease mean erythrocyte age. HbA1c may not accurately reflect glycemic control when clinical conditions that affect erythrocyte survival are present. Fructosamine may be used as an alternate measurement of glycemic control. 11/15/2024 12:1 4 PM EDT 11/16/2024 9:49 AM EDT us Jordana Webb MD LAB BLOOD ORDERABLES Final Resu lt [facility] DPT OF LAB MED AND PAT+ [address] [place] [address] * HIV-1/2 antigen/antibody (11/15/2024 12:14 PM EDT) HIV-1/2 Antigen/Antibo dy NON-REACTI VE NON-REACTI VE [facility] Blood 11/15/2024 12:1 4 PM EDT 11/15/2024 12:18 PM EDT us Jordana Webb MD LAB BLOOD ORDERABLES Final Resu lt Performing Organization Address [facility]/ZIP Co de Phone Number [address] [address] * (ABNORMAL) LFTs (hepatic panel) (11/15/2024 12:14 PM EDT) ALKALINE PHOSPHATASE 66 39 - 117 U/L [facility] TOTAL BILIRUBIN 1.0 0.0 - 1.2 mg/dL [facility] DIRECT BILIRUBIN 0.4(H) 0.0 - 0.2 mg/dL [facility] Bilirubin (Indirect) 0.6 0 - 1.5 mg/dL [facility] AST 21 0 - 37 U/L [facility] ALT 16 0 - 40 U/L [facility] TOTAL PROTEIN 5.7(L) 6.5 - 8.0 g/dL [facility] ALBUMIN 3.9 3.9 - 4.8 g/dL [facility] GLOBULIN 1.8 1 - 4.8 g/dL [facility] A/G Ratio 2.17 1.00 - 4.80 RATIO [facility] Blood 11/15/2024 12:1 4 PM EDT 11/15/2024 12:18 PM EDT Tony Sargent DO LAB BLOOD ORDERABLES Final Re sult Performing Organization Address [facility]/ZIP Co de Phone Number [address] [address] * (ABNORMAL) Lipid panel (11/15/2024 12:14 PM EDT) HDL 82 mg/dL [facility] Comment: Interpretation <40 mg/dL: Low HDL cholesterol (major risk factor for CHD) Greater than or equal to 60 mg/dL: High HDL cholesterol ( negative risk factor for CHD) HDL - cholesterol is affected by a number of factors, e.g. smoking, excerise, hormones, sex and age. CHOLESTEROL 149 0 - 240 mg/dL [facility] TRIGLYCERIDES 45 30 - 160 mg/dL [facility] LDL 58 50 - 129 mg/dL [facility] Comment: LDL levels in terms of risk for coronary heart disease: <100 mg/dL: Optimal 100-129 mg/dL: Near or above optimal 130-159 mg/dL: Borderline high 160-189 mg/dL: High >190 mg/dL: Very High CARDIAC RISK RATIO 1.8(L) 3.4 - 5.0 C [facility] Blood 11/15/2024 12:1 4 PM EDT 11/15/2024 12:18 PM EDT us Tony Sargent DO LAB BLOOD ORDERABLES Final Re sult [facility] [address] [place] [address] * Outside EP Study Report Only (11/11/2024 2:18 PM EDT) Historical Provider MD MARILYN SANFORD Final Result * (ABNORMAL) CD20 on B Cells (10/12/2024 9:52 AM EDT) CD45 ABSOLUTE 0.62(L) 1.00 - 3.33 thou/mcL [facility] %CD19 B-CELLS 0(L) 4.6 - 22.1 % [facility]PATH [address] %CD20 B-CELLS 0(L) 5.0 - 22.3 % [facility] LAB MED/PATH [address] CD19 ABSOLUTE 0(L) 56.6 - 417.4 cells/mc L [facility] CD20 ABSOLUTE 0(L) 74.4 - 441.1 cells/mc L [facility] Comment: (NOTE) ADDITIONAL INFORMATION Reference values implemented August 03, 2008. This test was developed using an analyte specific reagent. Its performance characteristics were determined by [facility] in a manner consistent with CLIA requirements. This test has not been cleared or approved by the U.S. Food and Drug Administration. COMMENT Test component not applicable or not reported. [facility] LAB MED/[address] 10/12/2024 9:52 AM EDT 10/12/2024 10:52 AM EDT us Juan Hilton MD LAB BLOOD ORDERABLES Final Resul t [facility] [address] [place] [address] * (ABNORMAL) Monoclonal protein study, serum (10/12/2024 9:52 AM EDT) M-protein GK Test component not applicable or not reported. g/dL [facility] DR M-protein GL Test component not applicable or not reported. g/dL [facility] DR M-protein AK Test component not applicable or not reported. g/dL [facility] DR M-protein AL Test component not applicable or not reported. g/dL [facility] DR M-protein MK Test component not applicable or not reported. g/dL [facility] DR M-protein ML Test component not applicable or not reported. g/dL [facility] DR Glycosylation Test component not applicable or not reported. [facility] Flag, M-protein Isotype Negative Negative [facility] QMPTS Interpretation No monoclonal protein detected. [facility] Comment: (NOTE) ADDITIONAL INFORMATION The submitted sample was assayed by five separate immunopurifications for IgG, IgA, IgM, kappa and lambda. The result reflects the findings of either no monoclonal protein detected or those monoclonal immunoglobulins that were detected. This test was developed and its performance characteristics determined by [facility] in a manner consistent with CLIA requirements. This test has not been cleared or approved by the U.S. Food and Drug Administration. IgA 31(L) 61 - 356 mg/dL [facility] IgM 11(L) 37 - 286 mg/dL [facility] DR IgG 363(L) 767 - 1,590 mg/dL [facility] LAB MED/[address] Therapeutic Antibody Administered? Unknown [facility] MED/[facility] [address] Comment:Corrected on 10/14 A T 1113: previously reported as Unknown 10/12/2024 9:52 AM EDT 10/12/2024 10:14 AM EDT us Jordana Webb MD LAB BLOOD ORDERABLES Edited Res ult - Final [facility] LAB MED/[address] [place] [address] * (ABNORMAL) CD4 T-cell count (10/12/2024 9:52 AM EDT) CD45 LYMPH COUNT 0.43(L) 0.82 - 2.84 [facility] LAB MED/[address] %CD3 (T CELLS) 45(L) 58 - 86 % [facility] MED/[address] %CD4 (HELPER CELLS) 35 32 - 64 % [facility]/[address] %CD8 (SUPPR CELLS) 10 8 - 40 % M [facility] LAB MED/[address] CD3 (T CELLS) 193(L) 550 - 2,202 cells/mc L [facility]/[address] CD4 (HELPER CELLS) 154(L) 365 - 1,437 cells/mc L [facility]/[address] CD8 (SUPPR CELLS) 42(L) 80 - 846 cells/mc L [facility] MED/[address] H/S RATIO 3.7 >=0.[address] [facility] [place] Comment: (NOTE) ADDITIONAL INFORMATION This test was developed using an analyte specific reagent. Its performance characteristics were determined by [facility] in a manner consistent with CLIA requirements. This test has not been cleared or approved by the U.S. Food and Drug Administration. CD4 COUNT COMMENT Test component not applicable or not reported. [facility] LAB MED/[facility] [address] MUNOZ 10/12/2024 9:52 AM EDT 10/12/2024 10:52 AM EDT Jordana Webb MD LAB BLOOD ORDERABLES Final Resu lt Performing Organization Address [facility] de Phone Number [facility] LAB MED/[address] Sh[address] [place] [address] * (ABNORMAL) SPEP panel (10/12/2024 9:52 AM EDT) Pathologist [facility] IMMUNOGLOBULIN G 374(L) 700 - 1,600 mg/dL [facility] IgA 30(L) 70 - 400 mg/dL [facility] IMMUNOGLOBULIN M 12(L) 40 - 230 mg/dL [facility] 10/12/2024 9:52 AM EDT 10/12/2024 10:50 AM EDT Jordana Webb MD LAB BLOOD ORDERABLES Final Resu lt Performing Organization Address [facility] Phone Number [address] [address] * Free light chains, serum (10/12/2024 9:52 AM EDT) Pathologist [facility] [place] Free Light Chain 0.4900 0.3300 - 1.94 mg/dL [facility] MED[facility] [place] Lambda Free Light Chain 0.6300 0.5700 - 2.63 mg/dL [facility] [place]/Lambda FLC Ratio 0.7778 0.2600 - 1.65 [facility] MED[facility] [place] 10/12/2024 9:52 AM EDT 10/12/2024 10:52 AM EDT Jordana Webb MD LAB BLOOD ORDERABLES Final Resu lt Performing Organization Address [facility] de Phone Number [facility] LAB MED/[address] Shankra [address] [place] [address] * (ABNORMAL) B cell phenotype profile (10/12/2024 9:32 AM EDT) CD45 LYMPH COUNT 0.44(L) 0.82 - 2.84 thou/mcL [facility] MED/[address] %CD3 (T CELLS) 44(L) 58 - 86 % [facility] DR %CD19 (B CELLS) 0(L) 3 - 24 % [facility] DR %CD16+CD56 (NK CELLS) 55(H) 5 - 28 % [facility] DR %CD4 (HELPER CELLS) 34 32 - 64 % [facility] DR %CD8 (SUPPR CELLS) 10 8 - 40 % [facility]/[address] CD3 (T CELLS) 193(L) 550 - 2,202 cells/mc L [facility] DR CD19 (B CELLS) 0(L) 45 - 409 cells/mc L [facility] DR CD16+CD56 (NK CELLS) 246 59 - 513 cells/mc L [facility] DR CD4 (HELPER CELLS) 150(L) 365 - 1,437 cells/mc L [facility] DR CD8 (SUPPR CELLS) 45(L) 80 - 846 cells/mc L [facility] DR H/S RATIO 3.3 >=0.[address] [facility] Comment: (NOTE) ADDITIONAL INFORMATION This test was developed using an analyte specific reagent. Its performance characteristics were determined by [facility] in a manner consistent with CLIA requirements. This test has not been cleared or approved by the U.S. Food and Drug Administration. COMMENT Test component not applicable or not reported. [facility] DR CD19% Test Not Performed. % [facility] Comment: (NOTE) Immune Assessment B Cell Subsets was cancelled on 10/14/2024 at 08:17; Quantity was not sufficient for testing. Unable to perform assay due to absence of CD19+ B cells. If Common Variable Immune Deficiency (CVID) is suspected, particularly with potential CD19 or related defects, recommend evaluating CD20 expression on B cells (////D20, B-Cells////Test ID CD20B). CD20+ % Test component not applicable or not reported. % [facility] MED/[address] CD19+CD27+% Test component not applicable or not reported. % [facility]/[address] CD27+ IGM+IGD+ %CD19+ Test component not applicable or not reported. % [facility]/[address] CD19+CD27+IGD-IGM- % Test component not applicable or not reported. % [facility] MED/[address] CD19+CD27+IGD-IGM+ % Test component not applicable or not reported. % [facility] MED/[address] CD19+IGM+% Test component not applicable or not reported. % [facility] MED/[address] CD19+CD38+IGM-% Test component not applicable or not reported. % [facility]/[address] CD19+CD38+IGM+% Test component not applicable or not reported. % [facility]/[address] CD19+CD21+% Test component not applicable or not reported. % [facility]/[address] CD19+CD21-% Test component not applicable or not reported. % [facility]/[address] CD19+ Test component not applicable or not reported. cells/ L [facility]/[address] CD20+ Test component not applicable or not reported. cells/ L [facility]/[address] CD27+ Test component not applicable or not reported. cells/ L [facility]/[address] CD27+ IGM+IGD+ Test component not applicable or not reported. cells/ L [facility]/[address] CD27+IGM-IGD- Test component not applicable or not reported. cells/ L [facility]/[address] CD27+ IGM+ IGD- Test component not applicable or not reported. cells/ L [facility]/[address] IgM+ B cells Test component not applicable or not reported. cells/ L [facility]/[address] CD38+IGM- Test component not applicable or not reported. cells/ L [facility]/[address] CD38+IGM+ Test component not applicable or not reported. cells/ L [facility]/[address] CD21+ Test component not applicable or not reported. cells/ L [facility] MED/PATH [address] CD21- Test component not applicable or not reported. cells/mc L [facility] LAB MED/[address] Cellularity Studies Test Not Performed. [facility] MED/[facility] [address] Comment: (NOTE) Immune Assessment B Cell Subsets was cancelled on 10/14/2024 at 08:17; Quantity was not sufficient for testing. Unable to perform assay due to absence of CD19+ B cells. If Common Variable Immune Deficiency (CVID) is suspected, particularly with potential CD19 or related defects, recommend evaluating CD20 expression on B cells (////D20, B-Cells////Test ID CD20B). 10/12/2024 9:32 AM EDT 10/12/2024 10:19 AM EDT us Dillon Gee MD LAB BLOOD ORDERABLE S Final Result [facility] LAB MED/[address] [place] [address] * (ABNORMAL) Comprehensive metabolic panel (10/12/2024 9:32 AM EDT) SODIUM 142 133 - 146 mmol/L [facility] POTASSIUM 5.0 3.3 - 5.1 mmol/L [facility] CHLORIDE 105 96 - 108 mmol/L [facility] CO2 28 21 - 35 mmol/L [facility] BUN 26(H) 6 - 19 mg/dL [facility] CREATININE 1.00 0.5 - 1.5 mg/dL [facility] GLUCOSE 130(H) 70 - 99 mg/dL [facility] ALBUMIN 4.0 3.9 - 4.8 g/dL [facility] TOTAL PROTEIN 5.8(L) 6.5 - 8.0 g/dL [facility] CALCIUM 9.6 8.4 - 10.3 mg/dL [facility] ALKALINE PHOSPHATASE 88 39 - 117 U/L [facility] TOTAL BILIRUBIN 0.7 0.0 - 1.2 mg/dL [facility] AST 19 0 - 37 U/L [facility] ALT 20 0 - 40 U/L [facility] GLOBULIN 1.8 1 - 4.8 g/dL [facility] EGFR 78 >59 mL/min/1.7 3m2 [facility] Comment:Estimated glomerular filtration rate calculated using the CKD-EPI refit equation. ANION GAP 14 10 - 20 mmol/L [facility] 10/12/2024 9:32 AM EDT 10/12/2024 10:54 AM EDT us Dillon Gee MD LAB BLOOD ORDERABLE S Final Result [address] [address] * 25-OH vitamin D (10/12/2024 9:32 AM EDT) 25 OH VIT D (TOTAL) 37 30 - 60 ng/mL [facility] 10/12/2024 9:32 AM EDT 10/12/2024 10:54 AM EDT Dillon Gee MD LAB BLOOD ORDERABLE S Final Result Performing Organization Address [facility]/ZIP Co de Phone Number [address] [address] * Hepatitis B surface antigen (10/12/2024 9:32 AM EDT) HBV SURFACE ANTIGEN NON-REACTI VE NON-REACTI VE [facility] 10/12/2024 9:32 AM EDT 10/12/2024 10:54 AM EDT Dillon Gee MD LAB BLOOD ORDERABLE S Final Result Performing Organization Address [facility]/ZIP Co de Phone Number [address] [address] * (ABNORMAL) CBC and differential (10/12/2024 9:32 AM EDT) WBC 9.79 4.00 - 11.00 K/uL [facility] RBC 4.33(L) 4.50 - 5.90 M/uL [facility] HGB 13.1(L) 13.5 - 17.5 g/dL [facility] HCT 41.8 41.0 - 53.0 % [facility] PLT 141(L) 150 - 450 K/uL [facility] MCV 96.5 80.0 - 100.0 fL [facility] MCH 30.3 27.0 - 31.0 pg [facility] MCHC 31.3(L) 32.0 - 36.0 g/dL [facility] RDW 16.2(H) 11.5 - 14.5 % [facility] MPV 10.4 8.4 - 12.0 fL [facility] NRBC 0.00 0.00 /100 WBCs [facility] ABSOLUTE NRBC 0.00 0.00 K/uL [facility] DIFF METHOD Auto [facility] NEUTS 92.9(H) 48.0 - 76.0 % [facility] LYMPHS 4.1(L) 18.0 - 41.0 % [facility] MONOS 2.0(L) 4.0 - 11.0 % [facility] EOS 0.0 0.0 - 5.0 % [facility] BASOS 0.2 0.0 - 1.5 % [facility] Granulocytes, immature (%) 0.8 0.0 - 0.9 % [facility] ABSOLUTE NEUTS 9.09(H) 1.92 - 7.60 K/uL [facility] ABSOLUTE LYMPHS 0.40(L) 0.72 - 4.10 K/uL [facility] ABSOLUTE MONOS 0.20 0.16 - 1.10 K/uL [facility] ABSOLUTE EOS 0.00 0.00 - 0.50 K/uL [facility] ABSOLUTE BASOS 0.02 0.00 - 0.15 K/uL [facility] Granulocytes, immature 0.08 0.00 - 0.09 K/uL [facility] Blood 10/12/2024 9:32 AM EDT 10/12/2024 10:54 AM EDT Dillon Gee MD LAB BLOOD ORDERABLE S Final Result Performing Organization Address [facility]/ZIP Co de Phone Number [address] [address] * Outside EP Study Report Only (10/07/2024 3:41 PM EDT) us Historical Provider CV ELECTROPHYSIOLOGY CYNTHIA SANFORD Final Result * Valproic acid (12/03/2023 1:36 PM EDT) VALPROIC ACID 62.7 50.0 - 100.0 ug/mL [facility] 12/03/2023 1:36 PM EDT 12/03/2023 5:05 PM EDT us Whitney García MD LAB BLOOD ORDERABLES Final Resu lt Performing Organization Address [facility]/ZIP Co de Phone Number [address] [address] * TSH with reflex (12/17/2021 11:58 AM EDT) TSH 2.60 0.27 - 4.20 uIU/mL [facility] Blood 12/17/2021 11:5 8 AM EDT 12/17/2021 12:00 PM EDT us Seymour Ferris CNP LAB BLOOD ORDERABLES Final Result Performing Organization Address [facility] Co de Phone Number [address] [address] from Last 3 Months or Most Recently Relevant to Health Maintenance Insurance MEDICARE PART A & B [employer] SUPPLEMENT MEDICARE PART A & B [employer] SUPPLEMENT MEDICARE PART A & B Member Subscriber Plan / Payer ( fective 2013-Present) Name:Renard Mckeon Member ID:[id number] Relation to Subscriber:Self Name:Renard Mckeon Subscriber ID:[id number] Payer ID:[id number] Group ID:Not on file Type:Medicare Address: [employer] [address] [place] [phone] SHAPE MEDEX SUPPLEMENT MEDICARE PART A & B [employer] SUPPLEMENT MEDICARE PART A & B [employer] SUPPLEMENT MEDICARE PART A & B [employer] SUPPLEMENT MEDICARE PART A & B [employer] SUPPLEMENT MEDICARE PART A & B [employer] SUPPLEMENT MEDICARE PART A & B [employer] SUPPLEMENT Advance Directives For more information, please contact: [phone] (9AM - 5PM Jessie/[facility] [place], Friday-Friday) * Full Code (Confirmed) (Latest Code Status on File) Date Activated Date Inactivated Comments 09/02/2018 9:07 PM 09/21/2018 3:45 PM Question Answer Comments Code Status Confirmed With: Family Care Teams Circular Distributor Relationship Specialty Start Date End Date Ezra Denney NP [address] [facility] [place] [address] PCP - General Family Medicine 07/07/19 Tony Miranda MD [email or web address] Historical LMR Provider 02/20/17 Jamie Soto MD [address] [place] [address] [address] [place] [address] [email or web address] Historical LMR Provider 02/20/17 Rinku Carrizales MD [address] [place] [address] [email or web address] Historical LMR Provider 02/20/17 Additional Source Comments The information contained in this document represents components of the legal health record. It is not the complete legal health record.[facility]
--- OUTSIDE RECORDS SUMMARY | 2025-01-04 13:07 | XMS_ITS | Encounter Summary ---
Author Organization [facility] Address [address] [place] [address] Phone Care Team Providers Care Rn Icu Name Role Phone Mamadou Loving DO Primary Care Provider [phone] Seymour Ferris READING PROFESSOR Unavailable Tony Miranda MD Unavailable Keyla Melton PA-C Unavailable [phone] Jamie Soto MD Unavailable [phone] Mamadou Loving DO Unavailable Roger Jorgensen HYDROPONICS WORKER Unavailable [phone] Rinku Carrizales MD Unavailable [phone] Ezra Denney NP Primary Care Provider + Encounter Details Date Type Department Care Team (Late st Contact Info) Description 09/02/2018 Procedure Pass [facility] PERIOPERATIVE DEPT [address] [place] [address] Social History Tobacco Use Types [...] Description 08/24/2024 Procedure Pass [facility] [address] [place] [address] 02/15/2025 1:00 PM EDT Office Visit [facility] Allergy [place] 55 [facility], 4th Floor, [address] [place] [address] Radha Garcia MD 55 [facility] [address] [place] [address] [email or web address] 05/03/2025 11:15 AM EST Office Visit [facility] [address] 3rd Floor, [address] [place] [address] Tony Sargent [address] [address] 08/24/2025 11:15 AM EDT Appointment Echo Lab [place] [address] [place] [address] Tony Sargent DO [address] [place] [address] [place] [address] documented as of this encounter Visit Diagnoses Not on filedocumented in this encounter Care Teams Rn Icu Relationship Specialty Start Date End Date Mamadou Loving DO [address] [place] [address] PCP - General 02/20/17 07/06/19 Ezra Denney, NACHO 1963 [facility] [place] [address] PCP - General Family Medicine 07/07/19 Seymour Ferris, MIKE [address] aMy [address] [place] [address] [email or web address] Historical LMR Provider 02/20/1705/12/21 Tony Miranda MD [address] [place] [address] [email or web address] Historical LMR Provider 02/20/17 Keyla Melton PA-C [address] [place] [address] [email or web address] Historical LMR Provider 02/20/17 05/12/21 Jamie Soto MD [address] [place] [address] [email or web address] Historical LMR Provider 02/20/17 Mamadou Loving DO [address] [place] [address] Historical LMR Provider 02/20/17 Roger Jorgensen, NACHO [address] [place] [address] [address] Historical LMR Provider 02/20/17 2 Rinku Carrizales MD [address] [place] [address] [email or web address] Historical LMR Provider 02/20/17 documented as of this encounter Additional Source Comments The information contained in this document represents components of the legal health record. It is not the complete legal health record.[facility]
--- OUTSIDE RECORDS SUMMARY | 2025-01-04 13:07 | XMS_ITS | Encounter Summary ---
Author Organization [facility] Address [facility] [place] [employer] [facility] [address] [place] [address] Phone Care Team Providers Care Planning Assistant Name Role Phone Tony Miranda MD Unavailable Jamie Soto MD Unavailable [phone] Rinku Carrizales MD Unavailable Ezra Denney IRON HANDLER Primary Care Provider + Encounter Details Date Type Department Care Team (Late st Contact Info) Description 12/09/2024 Orders [facility] 22 [facility] 3rd Floor, [address] [place] [address] Provider, MD [facility] [place] [address] Social History Tobacco Use Types Packs/Day Years [...] Info) Description 08/24/2024 Procedure Pass Echo Lab [address] [place] [address] 02/15/2025 1:00 PM EDT Office Visit [facility] Allergy [place] [address] [facility], 4th Floor, [address] [place] [address] Radha Garcia MD 55 [facility] [address] [place] [address] [email or web address] 05/03/2025 11:15 AM EST Office Visit [facility] [address] [place] [address] 3rd Floor, [address] [place] [address] Tony Sargent, DO 22 [facility] [address] [place] [address] 08/24/2025 11:15 AM EDT Appointment Echo Lab [place] [address] [place] [address] Tony Sargent, DO 22 [facility] [address] [place] [address] documented as of this encounter Procedures Procedure Name Priority Date/Time Associated Diagnosis Comments OUTSIDE EP STUDY Routine 11/11/2024 2:18 PM EDT documented in this encounter Results * Outside EP Study Report Only (11/11/2024 2:18 PM EDT) us Historical Provider MD [facility] Final Result documented in this encounter Visit Diagnoses Not on filedocumented in this encounter Care Teams Planning Assistant Relationship Specialty Start Date End Date Ezra Denney NP [address] [facility] [place] [address] PCP - General Family Medicine 07/07/19 Tony Miranda MD [email or web address] Historical LMR Provider 02/20/17 Jamie Soto MD [address] [place] [address], [address] [address] [email or web address] Historical LMR Provider 02/20/17 Rinku Carrizales MD [address] [place] [address] [email or web address] Historical LMR Provider 02/20/17 documented as of this encounter Additional Source Comments The information contained in this document represents components of the legal health record. It is not the complete legal health record.[facility]
--- OUTSIDE RECORDS SUMMARY | 2025-01-04 13:07 | XMS_ITS | Encounter Summary ---
Author Organization [facility] Address [address] [place] [address] [address] [place] [address] Phone Care Team Providers Care Chlorine Plant Operator Name Role Phone Mamadou Loving DO Primary Care Provider [phone] Seymour Ferris ORGANIC SECTION TECHNICAL LEAD Unavailable Tony Miranda MD Unavailable Keyla Melton PA-C Unavailable Jamie Soto MD Unavailable Mamadou Loving DO Unavailable Roger Jorgensen ENVIRONMENTAL SERVICES DIRECTOR Unavailable [phone] Rinku Carrizales MD Unavailable [phone] Ezra Denney NP Primary Care Provider + Encounter Details Date Type Department Care Team (Late st Contact Info) Description 11/12/2018 Ancillary Orders [facility] Vascular Surgery 55 [facility], 4th Floor, [address] [place] [address] Rinku Smith MD [address] [place] [id number] [email or web address] PAD (peripheral artery disease) Social History Tobacco Use Types Packs/Day Years [...] Info) Description 08/24/2024 Procedure Pass Echo Lab [address] [place] [address] 02/15/2025 1:00 PM EDT Office Visit [facility] Allergy [place] 55 [facility], 4th Floor, [address] [place] [address] aRdha Garcia MD 55 [facility] [address] [place] [address] [email or web address] 05/03/2025 11:15 AM EST Office Visit [facility] Zach Munoz 3rd Floor, [address] [place] [address] Tony Sargent, [address] [place] [address] 08/24/2025 11:15 AM EDT Appointment [place] [address] Tony Sargent, DO 22 [facility] [address] [place] [address] [email or web address] Scheduled Orders Name Type Priority Associated Diagnoses Orde r Schedule US Lower Extremity Arteries Duplex (Left) Vascular Routine PAD (peripheral artery disease) 1 Occurrences starting 11/12/2018 until 02/12/2019 documented as of this encounter Visit Diagnoses Diagnosis PAD (peripheral artery disease) Unspecified peripheral vascular disease documented in this encounter Care Teams Chlorine Plant Operator Relationship Specialty Start Date End Date Mamadou Loving DO [address] [place] [address] PCP - General 02/20/17 07/06/19 Ezra Denney, NACHO [address] [place] [address] [place] [address] PCP - General Family Medicine 07/07/19 Seymour Ferris, MIKE [place] [place] [address] [place] [address] Historical LMR Provider 02/20/1705/12/21 Tony Miranda MD [place] [place] [address] [place] [address] [email or web address] Historical LMR Provider 02/20/17 Keyla Melton PA-C [address] [place] [address] [email or web address] Historical LMR Provider 02/20/17 05/12/21 Jamie Soto MD [address] [place] [address] [email or web address] Historical LMR Provider 02/20/17 Mamadou Loving DO [address] [place] [address] Historical LMR Provider 02/20/17 Roger Jorgensen, NACHO [address] [place] [address] Historical LMR Provider 02/20/17 2 Rinku Carrizales MD [address] [address] [email or web address] Historical LMR Provider 02/20/17 documented as of this encounter Additional Source Comments The information contained in this document represents components of the legal health record. It is not the complete legal health record.[facility]
--- OUTSIDE RECORDS SUMMARY | 2025-01-04 13:07 | XMS_ITS | Encounter Summary ---
Author Organization [facility] Address [address] [place] [address] [place] [address] Phone Care Team Providers Care Occ Therapist Name Role Phone Mamadou Loving DO Primary Care Provider Seymour Ferris RAILWAY PATROL OFFICER Unavailable Tony Miranda MD Unavailable Keyla Melton PA-C Unavailable Jamie Soto MD Unavailable [phone] Mamadou Loving DO Unavailable Roger Jorgensen PORTABLE TRACK CREW CHIEF Unavailable [phone] Rinku Carrizales MD Unavailable [phone] Ezra Denney NP Primary Care Provider + Encounter Details Date Type Department Care Team (Late st Contact Info) Description 09/04/2018 Procedure Pass [facility] Cardiac Document Management Analyst [address] [facility], [address] 9, [address] [place] [address] Social History Tobacco Use Types [...] Description 08/24/2024 Procedure Pass Echo Lab [address] [place] [address] 02/15/2025 1:00 PM EDT Office Visit [facility] Allergy [place] 55 [facility], 4th Floor, [address] [place] [address] Radha Garcia MD 55 [facility] [address] [place] [address] [email or web address] 05/03/2025 11:15 AM EST Office Visit [facility] [address] [place] [address] 3rd Floor, [address] [place] [address] Tony Sargent [address] [place] [address] 08/24/2025 11:15 AM EDT Appointment Echo Lab [address] [place] [address] Tony Sargent [address] [place] [address] documented as of this encounter Visit Diagnoses Not on filedocumented in this encounter Care Teams Occ Therapist Relationship Specialty Start Date End Date Mamadou Loving DO [address] [place] [address] PCP - General 02/20/17 07/06/19 Ezra Denney NP [facility] [place] [address] PCP - General Family Medicine 07/07/19 Seymour Ferris, MIKE [address] [place] [address] [email or web address] Historical LMR Provider 02/20/1705/12/21 Tony Miranda MD [address] [place] [address] [email or web address] Historical LMR Provider 02/20/17 Keyla Melton PA-C [address] [place] [address] [email or web address] Historical LMR Provider 02/20/17 05/12/21 Jamie Soto MD [address] [place] [address] [email or web address] Historical LMR Provider 02/20/17 Mamadou Loving DO [address] [place] [address] Historical LMR Provider 02/20/17 Roger Jorgensen NP [address] [place] [address] [address] Historical LMR Provider 02/20/17 2 Rinku Carrizales MD [address] [place] [address] [email or web address] Historical LMR Provider 02/20/17 documented as of this encounter Additional Source Comments The information contained in this document represents components of the legal health record. It is not the complete legal health record.[facility]
--- OUTSIDE RECORDS SUMMARY | 2025-01-04 13:07 | XMS_ITS | Encounter Summary ---
Author Organization [facility] Address [address] [place] [address] Care Team Providers Care Wire Inspector Name Role Phone Mamadou Loving Primary Care Provider [phone] Zackary Martinez MD Unavailable Encounter Details Date Type Department Care Team (Late st Contact Info) Description 03/31/2017 Scanned Document [facility] [place] [address] Marco Lopez MD [address] [address] Social History Tobacco Use Types Packs/Day Years [...] on filedocumented in this encounter Care Teams Wire Inspector Relationship Specialty Start Date End Date Mamadou Loving [address] [place] [address] [place] [address] PCP - General Medicine Hospitalist 03/26/17 Zackary Martinez MD [address] [place] [address] [place] [address] Cardiovascular Disease 04/03/17 documented as of this encounter
--- OUTSIDE RECORDS SUMMARY | 2025-01-04 13:07 | XMS_ITS | Encounter Summary ---
Author Organization [facility] Address [address] [place] [address] Phone Care Team Providers Care [employer] Glazer Name Role Phone Seymour Ferris Christajacky CHROMIUM PLATER Unavailable Tony Miranda MD Unavailable [phone] Keyla Melton PA-C Unavailable [phone] Jamie Soto MD Unavailable Mamadou Loving DO Unavailable Roger Jorgensen SENIOR TECHNICAL TRAINER Unavailable Rinku Carrizales MD Unavailable [phone] Ezra Denney SENIOR TECHNICAL TRAINER Primary Care Provider + Encounter Details Date Type Department Care Team (Late st Contact Info) Description 05/10/2021 Procedure Pass Non-Invasive Cardiology [address] [place] [address] Social History Tobacco Use Types [...] Info) Description 08/24/2024 Procedure Pass Echo Lab [address] [place] [address] 02/15/2025 1:00 PM EDT Office Visit [facility] Allergy [place] 55 [facility], 4th Floor, [address] [place] [address] Radha Garcia MD 55 [facility] [address] [place] [address] [email or web address] [email or web address] 05/03/2025 11:15 AM EST Office Visit [facility] [address] 3rd Floor, [address] [place] [address] Tony Sargent, [address] [address] 08/24/2025 11:15 AM EDT Appointment Echo Lab [place] [address] [place] [address] Tony Sargent, [address] [place] [address] documented as of this encounter Visit Diagnoses Not on filedocumented in this encounter Care Teams [employer] Gl[employer] Relationship Specialty Start Date End Date Ezra Denney NP [address] [facility] [place] [address] PCP - General Family Medicine 07/07/19 Seymour Ferris, MIKE [address] [place] [address] Historical LMR Provider 02/20/1705/12/21 Tony Miranda MD [address] [place] [address] [email or web address] Historical LMR Provider 02/20/17 Keyla Melton PA-C [address] [place] [address] [email or web address] Historical LMR Provider 02/20/17 05/12/21 Jamie Soto MD [address] [place] [address] [email or web address] Historical LMR Provider 02/20/17 Mamadou Loving DO [address] [place] [address] Historical LMR Provider 02/20/17 Roger Jorgensen NP [address] [place] [address] [address] [place] [address] Historical LMR Provider 02/20/17 2 Rinku Carrizales MD [address] [place] [address] [email or web address] Historical LMR Provider 02/20/17 documented as of this encounter Additional Source Comments The information contained in this document represents components of the legal health record. It is not the complete legal health record.[facility]
--- OUTSIDE RECORDS SUMMARY | 2025-01-04 13:07 | XMS_ITS | Encounter Summary ---
Author Organization [facility] Address [address] [place] [address] [place] [address] Phone Care Team Providers Care Sap Business Analyst Name Role Phone Mamadou Loving DO Primary Care Provider Seymour Ferris HAND TOUCH UP PAINTER Unavailable Tony Miranda MD Unavailable Keyla Melton PA-C Unavailable [phone] Jamie Soto MD Unavailable Mamadou Loving DO Unavailable Roger Jorgensen ENTRY LEVEL MACHINE OPERATOR Unavailable Rinku Carrizales MD Unavailable [phone] Ezra Denney NP Primary Care Provider + Encounter Details Date Type Department Care Team (Late st Contact Info) Description 09/04/2018 Procedure Pass [facility] Cardiac Manager Life 55 [facility], [address] 9, [address] [place] [address] Social History Tobacco Use Types [...] Description 08/24/2024 Procedure Pass Echo Lab [address] [place] [address] 02/15/2025 1:00 PM EDT Office Visit [facility] Allergy [place] 55 [facility], 4th Floor, [address] [place] [address] Radha Garcia MD 55 [facility] [address] [place] [address] [email or web address] 05/03/2025 11:15 AM EST Office Visit [facility] [address] [place] [address] 3rd Floor, [address] [place] [address] Tony Sargent [address] [place] [address] 08/24/2025 11:15 AM EDT Appointment Echo Lab [address] [place] [address] Tony Sargent [address] [place] [address] documented as of this encounter Visit Diagnoses Not on filedocumented in this encounter Care Teams Sap Business Analyst Relationship Specialty Start Date End Date Mamadou Loving DO [address] [place] [address] PCP - General 02/20/17 07/06/19 Ezra Denney NP [facility] [place] [address] PCP - General Family Medicine 07/07/19 Seymour Ferris, MIKE [address] [place] [address] [email or web address] Historical LMR Provider 02/20/1705/12/21 Tony Miranda MD [address] [place] [address] [email or web address] Historical LMR Provider 02/20/17 Keyla Melton PA-C [address] [place] [address] [email or web address] Historical LMR Provider 02/20/17 05/12/21 Jamie Soto MD [address] [place] [address] [email or web address] Historical LMR Provider 02/20/17 Mamadou Loving DO [address] [place] [address] Historical LMR Provider 02/20/17 Roger Jorgensen NP [address] [place] [address] [address] Historical LMR Provider 02/20/17 2 Rinku Carrizales MD [address] [place] [address] [email or web address] Historical LMR Provider 02/20/17 documented as of this encounter Additional Source Comments The information contained in this document represents components of the legal health record. It is not the complete legal health record.[facility]
--- OUTSIDE RECORDS SUMMARY | 2025-01-04 13:07 | XMS_ITS | Encounter Summary ---
Author Organization [facility] Address [address] [place] [address] [place] [address] Phone Care Team Providers Care Motorboat Operator Name Role Phone Tony Miranda MD Unavailable Jamie Soto MD Unavailable Rinku Carrizales MD Unavailable [phone] Ezra Denney CAMP BOSS Primary Care Provider + Encounter Details Date Type Department Care Team (Late st Contact Info) Description 11/15/2024 [facility] [address] [facility] 3rd Floor, [address] [place] [address] Radha Peters, [facility] [address] [place] [address] [email or web address] Social History Tobacco Use Types Packs/Day Years [...] as of this encounter Progress Notes * Radha Peters DNP - 11/15/2024 2:25 PM EDT Shobha-I saw Renard today. You consulted on patient during his recent [facility] hospitalization for chest pain. 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 I am not familiar with this trial. I have him following up with Dr. Michaels-is there something I can do in the mean time to help the pt with this? He has been asymptomatic since his last [facility] visit. Thanks Radha documented in this encounter Plan of Treatment Upcoming Encounters Date Type Department Care Team (Late st Contact Info) Description 08/24/2024 Procedure Pass Echo [facility] [place] [place] [address] 02/15/2025 1:00 PM EDT Office Visit [facility] [place] [address] [facility], 4th Floor, [address] [place] [address] Radha Garcia MD [address] [facility] [address] [place] [address] [email or web address] 05/03/2025 11:15 AM EST Office Visit [facility] [address] [place] [address] 3rd Floor, [address] [place] [address] Tony Sargent DO [address] [facility] [address] [place] [address] 08/24/2025 11:15 AM EDT Appointment [facility] [place] [place] [address] Tony Sargent DO [address] [facility] [address] [place] [address] [email or web address] documented as of this encounter Visit Diagnoses Not on filedocumented in this encounter Care Teams Motorboat Operator Relationship Specialty Start Date End Date Ezra Denney, NACHO [address] [place] [address] PCP - General Family Medicine 07/07/19 Tony Miranda MD [email or web address] Historical LMR Provider 02/20/17 Jamie Soto MD [address] [facility], [address] [place] [address] [email or web address] Historical LMR Provider 02/20/17 Rinku Carrizales MD [address] [place] [address] [email or web address] Historical LMR Provider 02/20/17 documented as of this encounter Additional Source Comments The information contained in this document represents components of the legal health record. It is not the complete legal health record.[facility]
--- OUTSIDE RECORDS SUMMARY | 2025-01-04 13:07 | XMS_ITS | Encounter Summary ---
Author Organization [facility] Address [address] [place] [address] Phone Care Team Providers Care Sample Dye Mixer Name Role Phone Seymour Ferris Christajacky PROCUREMENT PROFESSIONAL Unavailable Tony Miranda MD Unavailable [phone] Keyla Melton PA-C Unavailable [phone] Jamie Soto MD Unavailable Mamadou Loving DO Unavailable Roger Jorgensen FIBERGLASS AUTOBODY REPAIRER Unavailable [phone] Rinku Carrizales MD Unavailable [phone] Ezra Denney FIBERGLASS AUTOBODY REPAIRER Primary Care Provider + Encounter Details Date Type Department Care Team (Late st Contact Info) Description 01/24/2021 Procedure Pass Non-Invasive Cardiology [address] [place] [address] Social History Tobacco Use Types [...] Info) Description 08/24/2024 Procedure Pass Echo Lab [address] [place] [address] 02/15/2025 1:00 PM EDT Office Visit [facility] [place] [address] [facility], 4th Floor, [address] [place] [address] Radha Garcia MD 55 [facility] [address] [place] [address] [email or web address] 05/03/2025 11:15 AM EST Office Visit [facility] [address] 3rd Floor, [address] [place] [address] Tony Sargent, [address] [address] 08/24/2025 11:15 AM EDT Appointment Echo [facility] [place] [address] [place] [address] Tony Sargent, [address] [place] [address] documented as of this encounter Visit Diagnoses Not on filedocumented in this encounter Care Teams Sample Dye Mixer Relationship Specialty Start Date End Date Ezra Denney NP [address] [place] [address] PCP - General Family Medicine 07/07/19 Seymour Ferris, MI[address] [place] [address] [place] [address] Historical LMR Provider 02/20/1705/12/21 Tony Miranda MD [address] [place] [address] [email or web address] Historical LMR Provider 02/20/17 Keyla Melton PA-C [address] [place] [address] [email or web address] Historical LMR Provider 02/20/17 05/12/21 Jamie Soto MD [address] [place] [address] [email or web address] Historical LMR Provider 02/20/17 Mamadou Loving DO [address] [place] [address] Historical LMR Provider 02/20/17 Roger Jorgensen NP [address] [place] [address] [address] [place] [phone] Historical LMR Provider 02/20/17 2 Rinku Carrizales MD [address] [place] [address] [email or web address] Historical LMR Provider 02/20/17 documented as of this encounter Additional Source Comments The information contained in this document represents components of the legal health record. It is not the complete legal health record.[facility]
--- OUTSIDE RECORDS SUMMARY | 2025-01-04 13:07 | XMS_ITS | Encounter Summary ---
Author Organization [facility] Address [address] [place] [address] [address] [place] [address] Phone Care Team Providers Care Vest Front Presser Name Role Phone Seymour Ferris OFFICE SWEEPER Unavailable Tony Miranda MD Unavailable [phone] Keyla Melton PA-C Unavailable Jamie Soto MD Unavailable Mamadou Loving DO Unavailable Roger Jorgensen QUALITY IMPROVEMENT COORDINATOR Unavailable Rinku Carrizales MD Unavailable [phone] Ezra Denney QUALITY IMPROVEMENT COORDINATOR Primary Care Provider + Encounter Details Date Type Department Care Team (Late st Contact Info) Description 03/14/2020 Procedure Pass [facility] Cardiac [place] [address] [facility], 5th Floor, [address] [place] [address] Social History Tobacco Use Types Packs/Day Years [...] Info) Description 08/24/2024 Procedure Pass Echo Lab [address] [place] [address] 02/15/2025 1:00 PM EDT Office Visit [facility] Allergy [place] [address] [facility] Building, 4th Floor, [address] [place] [address] Radha Garcia MD [address] [facility] [address] [place] [address] [email or web address] 05/03/2025 11:15 AM EST Office Visit [facility] [address] [place] [address] 3rd Floor, [address] [place] [address] Tony Sargent [address] [place] [address] 08/24/2025 11:15 AM EDT Appointment [facility] [address] [place] [address] Tony Sargent DO [address] [place] [address] [place] [address] documented as of this encounter Visit Diagnoses Not on filedocumented in this encounter Care Teams Vest Front Presser Relationship Specialty Start Date End Date Ezra Denney NP [address] [facility] [address] PCP - General Family Medicine 07/07/19 Seymour Ferris, MIKE [address] [place] [address] [place] [address] Historical LMR Provider 02/20/1705/12/21 Tony Miranda MD [address] [place] [address] [email or web address] Historical LMR Provider 02/20/17 Keyla Melton PA-C [address] [place] [address] [email or web address] Historical LMR Provider 02/20/17 05/12/21 Jamie Soto MD [address] [place] [address] [email or web address] Historical LMR Provider 02/20/17 Mamadou Loving DO [address] [place] [address] Historical LMR Provider 02/20/17 Roger Jorgensen NP [address] [place] [address] [address] Historical LMR Provider 02/20/17 2 Rinku Carrizales MD [address] [place] [address] [email or web address] Historical LMR Provider 02/20/17 documented as of this encounter Additional Source Comments The information contained in this document represents components of the legal health record. It is not the complete legal health record.[facility]
--- OUTSIDE RECORDS SUMMARY | 2025-01-04 13:07 | XMS_ITS | Clinical Summary ---
Author Organization [facility] Address [address] [place] [phone] Phone Care Team Providers Care Electric Meter Repairer Apprentice Name Role Phone Ezra Denney NP Primary [...] daily total of 225 MCG daily Active Social History Tobacco Use Types Packs/Day Years [...] 07/18/2025 11:00 AM EDT Office Visit [facility] [place] [address] [place] [address] Colin Martinez MD [address] [place] [address] Health Maintenance Due Date Last Done Comments DTaP,Tdap,and Td Vaccines (1 - Tdap) 1967 Hepatitis A Vaccines (1 of 2 - Risk 2-dose series) 1967 Zoster Vaccines (1 of 2) 1998 Cholesterol Screening (Lipid Panel) 2022 Falls Risk Assessment 2022 Hepatitis C Screening 2022 Medicare Annual Wellness Visit 2022 Social Influencers of Health Screening 2022 RSV Immunization Adult Patients (1 - 1-dose 75+ series) 2023 COVID-19 Vaccine ( season) 2024 03/04/2022, 03/09/2021, 08/02/2020, Additional history exists Depression Screening 05/05/2024 Influenza Vaccine (#1) 2025 2, 02/14/2020, 03/05/2019, Additional history exists Hypertension/CHF/CAD Annual [...] mmol/L LAB CHEMISTRY METHOD 06/07/2024 11:08 AM [facility] Potassium 4.0 3.5 - 5.5 mmol/L LAB CHEMISTRY METHOD 06/07/2024 11:08 AM [facility] Chloride 107 96 - 110 mmol/L LAB CHEMISTRY METHOD 06/07/2024 11:08 AM [facility] CO2 28 21 - 32 mmol/L LAB CHEMISTRY METHOD 06/07/2024 11:08 AM [facility] Anion Gap 7 3 - 11 LAB CHEMISTRY METHOD 06/07/2024 11:08 AM [facility] Glucose 65(L) 70 - 100 mg/dL LAB CHEMISTRY METHOD 06/07/2024 11:08 AM EST [facility] BUN 15 5 - 25 mg/dL LAB CHEMISTRY METHOD 06/07/2024 11:08 AM [facility] Creatinine 0.81 0.70 - 1.30 mg/dL LAB CHEMISTRY METHOD 06/07/2024 11:08 AM [facility] eGFR 91 >=60 mL/min/1. 73m2 LAB CHEMISTRY METHOD 06/07/2024 11:08 AM [facility] Comment:Calculation based on the Chronic Kidney Disease Epidemiology Collaboration (CKD-EPI) equation refit without adjustment for race. BUN/Creatinine Ratio 18.5 LAB CHEMISTRY METHOD 06/07/2024 11:08 AM [facility] Calcium 9.1 8.5 - 10.5 mg/dL LAB CHEMISTRY METHOD 06/07/2024 11:08 AM [facility] Blood Venous blood specimen / Unknown Venipuncture / Unknown 06/07/2024 7:01 AM EST 06/07/2024 9:23 AM EST Eugene Wilson MD LAB BLOOD ORDERABLES Final Res ult [facility] [address] [place] [address], from Last 3 Months or Most Recently Relevant to Health Maintenance Insurance [facility] Care Teams Electric Meter Repairer Apprentice Relationship Specialty Start Date End Date Ezra Denney NP [address] [place], [place] PCP - General 06/24/23
--- OUTSIDE RECORDS SUMMARY | 2025-01-04 13:07 | XMS_ITS | Encounter Summary ---
Author Organization [facility] Address [address] [place] [address] Phone Care Team Providers Care Horticulturalist Name Role Phone Tony Miranda MD Unavailable Jamie Soto MD Unavailable Rinku Carrizales MD Unavailable Ezra Denney SCALPER OPERATOR Primary Care Provider + Encounter Details Date Type Department Care Team (Late st Contact Info) Description 03/05/2024 Procedure Pass Echo [facility] [address] [place] [address] Social History Tobacco Use Types [...] Info) Description 08/24/2024 Procedure Pass Echo Lab [address] [place] [address] 02/15/2025 1:00 PM EDT Office Visit [facility] [place] [address] [facility], 4th Floor, [address] [place] [address] Radha Garcia MD [address] [facility] [address] [place] [address] [email or web address] 05/03/2025 11:15 AM EST Office Visit [facility] [address] 3rd Floor, [address] [place] [address] Tony Sargent, [address] [address] 08/24/2025 11:15 AM EDT Appointment Echo Lab [place] [address] [place] [address] Tony Sargent, DO [address] [place] [address] [place] [address] documented as of this encounter Visit Diagnoses Not on filedocumented in this encounter Care Teams Horticulturalist Relationship Specialty Start Date End Date Ezra Denney NP [address] [facility] [place] [address] PCP - General Family Medicine 07/07/19 Tony Miranda MD [email or web address] Historical LMR Provider 02/20/17 Jamie Soto MD [address] [place] [address], [facility] [address] [place] [address] [email or web address] Historical LMR Provider 02/20/17 Rinku Carrizales MD [address] [place] [address] [email or web address] Historical LMR Provider 02/20/17 documented as of this encounter Additional Source Comments The information contained in this document represents components of the legal health record. It is not the complete legal health record.[facility]
== END 2025-01-04 12:41 | disposition home or self-care (01) ==
LOC: HO.HMCC 11:24
PROVIDERS: PCP Nurse Practitioner Family; Visit Provider Nurse Practitioner Family
DX: R07.9 Chest pain, unspecified (principal); E53.8 Deficiency of other specified B group vitamins

== ENCOUNTER → 2025-01-04 11:23 | Outpatient (BNVA) | payer MEDICARE, SELFPAY | PROVIDERS: PCP Nurse Practitioner Family; Visit Provider Nurse Practitioner Family | DX: K22.4 Dyskinesia of esophagus (principal); I24.9 Acute ischemic heart disease, unspecified; R79.89 Other specified abnormal findings of blood chemistry; E53.8 Deficiency of other specified B group vitamins; Z95.1 Presence of aortocoronary bypass graft; Z79.01 Long term (current) use of anticoagulants | CPT/HCPCS: 99212 ==

== ENCOUNTER 2025-01-26 12:33 | Outpatient (AMB) | payer MEDICARE, SELFPAY ==
[2025-01-26 12:39] VITALS: BP 128/82; PULSE 89; TEMP 37.1; O2SAT 97; BMI 25.1
--- NOTE | 2025-01-26 12:39 | MHC.OFFWIV ---
Intake Vital Signs 01/26/25 12:39 Height 6 ft Weight 185 lb BMI 25.1 BP 128/82 Blood Pressure Location Lt brachial Position Sitting Pulse 89 Pulse Source Pulse Oximeter Temp 98.8 F Temp Source Oral Pulse Oximetry (%) 97 Oxygen Delivery Method Room Air Intake Visit Reasons: ep wound check right shoulder Intake Note: pt presents with concern for wound healing at site of defibrillator replacement from 01/20/25 Patient Tobacco Use Status: Current someday Tobacco user Allergies Penicillins (PENICILLINS) Allergy (Intermediate, Verified 01/26/25 12:46) ITCHY RASH HPI HPI Comments History of Present Illness Details History of Present Illness - The patient is a 74-year-old male presenting with evaluation of ICD site post-placement. - The ICD was placed six days ago by his wire weaving loom setter at [facility], and the patient is concerned about the site due to conflicting wound care instructions received post-procedure. - The patient reports no drainage from the site, but there is bruising and bloody discharge present. - The patient denies any fever, pain, warmth or discharge at the site. - Has not removed tegaderm over the steri-strips as he is nervous Physical Exam General: Cooperative, healthy appearing, comfortable, no acute distress and well developed Orientation: Patient oriented x3 Limitations: No limitations Head: Normal to inspection Ears: Hearing grossly normal bilaterally Nose: Normal External nose present Face and sinus: Normal facial exam Eyes: Appearance normal, both eyes and all related structures Neck: Normal visual inspection and Yes full ROM Respiratory: Normal respiratory effort and able to speak in complete sentences. Skin: ecchymosis noted, no warmth or signs of infection, device appears to have surrounding edema which is soft, likely a hematoma, no induration noted; see photos Neuro: Patient oriented x3 Extremities: Normal to inspection Review of Systems - General: Denies fever - Cardiovascular: Denies warmth at the ICD site - Integumentary: Reports bruising and bloody discharge at the ICD site All systems reviewed and are unremarkable except as noted in HPI [facility] Medical History STEMI (ST elevation myocardial infarction) Fall Atrial fibrillation with RVR Respiratory failure Limbic encephalitis Hypotension History of blood transfusion Osteopenia Hyperparathyroidism Severe obstructive sleep apnea Hypothyroidism Familial hypocalciuric hypercalcemia Vitamin D deficiency HTN (hypertension) Carpal tunnel syndrome of left wrist Ischemic cardiomyopathy Left carpal tunnel syndrome PTSD (post-traumatic stress disorder) FÉLIX (obstructive sleep apnea) Pulmonary nodule Paroxysmal atrial fibrillation Depression CAD (coronary artery disease) Surgical History Hx of cataract Hx of total knee replacement History of AAA (abdominal aortic aneurysm) repair AICD (automatic cardioverter/defibrillator) present Hx of colonoscopy Hx of discectomy Hx of appendectomy Hx of tonsillectomy S/P CABG x 6 Family History Father CAD (coronary artery disease) Substance use disorder Mother CVA (cerebral vascular accident) Paternal Uncle Substance use disorder Other Mental health disorder Social History Household Members: Spouse Housing: House Are you a primary manager medicare marketing to a significant other at home: No Do you presently have visiting nurse or other home services: No Alcohol intake: never Comment: aware of trip hazard Patient Tobacco Use Status: Current someday Tobacco user Tobacco use type: Cigar e-Cigarette/Vaping Use: Never Used Second Hand Smoke Exposure: No Substance Use Type: Marijuana Advance Directives Date on File: 07/27/21 service: No Current occupational status: retired Sexual orientation: Straight/Heterosexual Cognitive needs: No Hearing needs: No Vision needs: Yes Physical Exam Vital Signs: Last Vital Signs Temp 98.8 F 01/26/25 12:39 Pulse 89 01/26/25 12:39 BP 128/82 01/26/25 12:39 Pulse Ox 97 01/26/25 12:39 Oxygen Delivery Method Room Air 01/26/25 12:39 BMI result Body Mass Index 25.1 Assessment & Plan Assessment & Plan (1) ICD (implantable cardioverter-defibrillator) pocket hematoma: Code(s): T82.837A - Hemorrhage due to cardiac prosthetic devices, implants and grafts, initial encounter Qualifiers: Encounter type: initial encounter Plan: Surgical area does not appear to be infected but there does appear to be a hematoma. After some research, we did call the patient back soon after he left and let him know they should call the surgeon's office or the device clinic for follow-up BALA to have them evaluate it to see if it is a normal amount of swelling/hematoma around the area or concerning amount for a large hematoma which could lead to infection. See the work group message, we called the patient to advise follow up BALA with his surgeon. Patient was informed and verbally consented to the use of an ambient scribe for clinic note documentation during this visit. Coding Level of Care Code Est Pt Level 4 (47551) Diagnoses ICD (implantable cardioverter-defibrillator) pocket hematoma T82.837A Encounter type: initial encounter
--- OUTSIDE RECORDS SUMMARY | 2025-01-26 15:04 | XMS_ITS | Encounter Summary ---
Author Organization [facility] Address [address] [place] [address] [address] [place] [address] Phone Care Team Providers Care Clinical Programmer Name Role Phone Seymour Ferris PHYSICAL CHEMISTRY PROFESSOR Unavailable Tony Miranda MD Unavailable Keyla Melton PA-C Unavailable Jamie Soto MD Unavailable Mamadou Loving DO Unavailable Roger Jorgensen DELIVERY TABLE FEEDER Unavailable Rinku Carrizales MD Unavailable [phone] Ezra Denney DELIVERY TABLE FEEDER Primary Care Provider + Encounter Details Date Type Department Care Team (Late st Contact Info) Description 03/14/2021 Transcribe [facility] [address] [facility] [address]rd Floor, [address] [place] [address] Marivel Denny MD [address] [address] [email or web address] Social History Tobacco Use Types Packs/Day Years [...] Upcoming Encounters Date Type Department Care Team (Latest Contact Info) Description 02/18/2023 Procedure Pass Non-Invasive Cardiology [address] [place] [address] 02/18/2023 Procedure Pass Non-Invasive Cardiology [address] [place] [address] 07/03/2023 Procedure Pass Non-Invasive Cardiology [address] [place] [address] 10/02/2023 Procedure Pass Non-Invasive Cardiology [address] [place] [address] 10/10/2023 Procedure Pass Non-Invasive Cardiology [address] [place] [address] 10/13/2023 Procedure Pass Non-Invasive Cardiology [address] [place] [address] 08/24/2024 Procedure Pass Echo [facility] [place] [address] 02/02/2025 1:00 PM EDT Appointment Non-Invasive [place] [address] Norman Schafer MD [address] [place] [address], [address] [address] 02/10/2025 8:30 AM EDT Ancillary Procedure [facility] [address] [place] [address] 3rd Floor, [address] [address] Rosemarie Jaramillo DNP [address] [place] [address], [address] [address] 02/15/2025 1:00 PM EDT Office Visit [facility] [place] [address] [facility], 4th Floor, [address] [place] [address] Radha Garcia MD [address] [facility] [address] [place] [address] [email or web address] 05/03/2025 11:15 AM EST Ancillary [facility] [address] [place] [address] 3rd Floor, [address] [place] [address] Tony Sargent, DO [address] [facility] [address] [place] [address] 08/24/2025 11:15 AM EDT Appointment Echo Lab [address] [place] [address] Tony Sargent, DO [address] [facility] [address] [place] [address] [email or web address] documented as of this encounter Visit Diagnoses Not on filedocumented in this encounter Care Teams Clinical Programmer Relationship Specialty Start Date End Date Ezra Denney NP [facility] [place] [address] PCP - General Family Medicine 07/07/19 Seymour Ferris CNP [address] [place] [address] [email or web address] Historical LMR Provider 02/20/1705/12/21 Tony Miranda MD [address] May [address] [place] [address] [email or web address] Historical LMR Provider 02/20/17 MeltonKeyla ray PA-C [address] [place] [address] [email or web address] Historical LMR Provider 02/20/17 05/12/21 Jamie Soto MD 22 [facility] [address] [place] [address] [email or web address] Historical LMR Provider 02/20/17 Mamadou Loving DO [address] [place] [address] Historical LMR Provider 02/20/17 Roger Jorgensen NP [address] [place] [address] [address] [place] [address] [phone] Historical LMR Provider 02/20/17 2 Rinku Carrizales MD [address] [address] [email or web address] Historical LMR Provider 02/20/17 documented as of this encounter Additional Source Comments The information contained in this document represents components of the legal health record. It is not the complete legal health record.[facility]
--- OUTSIDE RECORDS SUMMARY | 2025-01-26 15:04 | XMS_ITS | Encounter Summary ---
Author Organization [facility] Address [address] [place] [address] Phone Care Team Providers Care Dining Host Name Role Phone Mamadou Loving DO Primary Care Provider [phone] Seymour Ferris FACILITY ATTENDANT Unavailable Tony Miranda MD Unavailable Keyla Melton PA-C Unavailable Jamie Soto MD Unavailable Mamadou Lovnig DO Unavailable Roger Jorgensen FIRE MARSHAL REFINERY Unavailable Rinku Carrziales MD Unavailable [phone] Ezra Denney NP Primary Care Provider + Encounter Details Date Type Department Care Team (Latest Contact Info) Description 04/08/2017 Ancillary Orders Non-Invasive Cardiology [address] [place] [address] Tony Miranda MD [address] [place] [address] [email or web address] Ischemic cardiomyopathy Social History Tobacco Use [...] Description 02/18/2023 Procedure Pass Non-Invasive Cardiology [address] [place] [address] 02/18/2023 Procedure Pass Non-Invasive Cardiology [address] [place] [address] 07/03/2023 Procedure Pass Non-Invasive Cardiology [address] [place] [address] 10/02/2023 Procedure Pass Non-Invasive Cardiology [address] [place] [address] 10/10/2023 Procedure Pass Non-Invasive Cardiology [address] [place] [address] 10/13/2023 Procedure Pass Non-Invasive Cardiology [address] [place] [address] 08/24/2024 Procedure Pass Echo Lab [place] [address] 02/02/2025 1:00 PM EDT Appointment Non-Invasive Cardiology [address] [place] [address] Norman Schafer MD 22 [facility], [address] [place] [address] 02/10/2025 8:30 AM EDT Ancillary Procedure [facility] [address] [place] [address] 3rd Floor, [address] [place] [address] Rosemarie Jaramillo DNP [address] [place] [address], [address] [place] [address] 02/15/2025 1:00 PM EDT Office Visit [facility] [address], 4th Floor, [address] [place] [address] Radha Garcia MD 55 [facility] [place] [address] [place] [address] [email or web address] 05/03/2025 11:15 AM EST Ancillary Procedure [facility] [address] [place] [address] 3rd Floor, [address] [place] [address] Tony Sargent, [address] [place] [address] 08/24/2025 11:15 AM EDT Appointment Echo Lab [address] [place] [address] Tony Sargent, [address] [place] [address] [email or web address] documented as of this encounter Results * DEVICE CHECK: ICD IN-HOME INTERROGATION (04/08/2017 11:28 AM EST) Narrative Tony Miranda MD - 04/08/2017 8:00 PM EST Reason for appointment: Remote ICD interrogation HPI: Routine 3 month remote ICD interrogation. No device related complaints. Indication for device ICM. Examination: Device type: ICD Broadcasting Equipment Mechanic: MDRosmery Thresholds, impedances, and sensing stable. Mode switches: [...] disease documented in this encounter Care Teams Dining Host Relationship Specialty Start Date End Date Mamadou Loving DO 5 [place] [address] PCP - General 02/20/17 07/06/19 Ezra Denney, NACHO [address] [place] [address] [place] [address] PCP - General Family Medicine 07/07/19 Seymour Ferris, MIKE [address] [place] [address] [place] [address] [email or web address] Historical LMR Provider 02/20/1705/12/21 Tony Miranda MD [address] [place] [address] [place] [address] [email or web address] Historical LMR Provider 02/20/17 Keyla Melton PA-C [address] [place] [address] [email or web address] Historical LMR Provider 02/20/17 05/12/21 Jamie Soto MD [address] [place] [address] [email or web address] Historical LMR Provider 02/20/17 Mamadou Loving DO [address] [place] [address] Historical LMR Provider 02/20/17 Roger Jorgensen, NACHO [address] [place] [address] [address] Historical LMR Provider 02/20/17 Rinku Bermudez MD NPI: [id number] [place] [address] [email or web address] Historical LMR Provider 02/20/17 documented as of this encounter Additional Source Comments The information contained in this document represents components of the legal health record. It is not the complete legal health record.[facility]
--- OUTSIDE RECORDS SUMMARY | 2025-01-26 15:04 | XMS_ITS | Encounter Summary ---
Author Organization [facility] Address [address] [place] [address] [place] [address] Phone Care Team Providers Care Java J2Ee Lead Name Role Phone Mamadou Loving DO Primary Care Provider Seymour Ferris COMPENSATION PROGRAMS MANAGER Unavailable Tony Miranda MD Unavailable [phone] Keyla Melton PA-C Unavailable Jamie Soto MD Unavailable Mamadou Loving DO Unavailable Roger Jorgensen NET PROGRAMMER Unavailable [phone] Rinku Carrizales MD Unavailable [phone] Ezra Denney NP Primary Care Provider + Encounter Details Date Type Department Care Team (Late st Contact Info) Description 09/02/2018 Procedure Pass [facility] Cardiac Insurance Office Supervisor [address] [facility], [address] 9, [address] [place] [address] Social History Tobacco Use Types [...] Description 02/18/2023 Procedure Pass Non-Invasive Cardiology [address] [place] [address] 02/18/2023 Procedure Pass Non-Invasive Cardiology [address] [place] [address] 07/03/2023 Procedure Pass Non-Invasive Cardiology [address] [place] [address] 10/02/2023 Procedure Pass Non-Invasive Cardiology [address] [place] [address] 10/10/2023 Procedure Pass Non-Invasive Cardiology [address] [place] [address] 10/13/2023 Procedure Pass Non-Invasive Cardiology [address] [place] [address] 08/24/2024 Procedure Pass Echo Lab [place] [address] 02/02/2025 1:00 PM EDT Appointment Non-Invasive Cardiology [address] [place] [address] Norman Schafer MD [address] [facility], [address] [place] [address] 02/10/2025 8:30 AM EDT Ancillary Procedure [facility] [address] [place] [address] 3rd Floor, [address] [place] [address] Rosemarie Jaramillo DNP [address] [facility], [address] [place] [address] 02/15/2025 1:00 PM EDT Office Visit [facility] Allergy [address], 4th Floor, [address] [place] [address] Radha Garcia MD 55 [facility] [place] [address] [place] [address] [email or web address] 05/03/2025 11:15 AM EST Ancillary Procedure [facility] [address] [place] [address] 3rd Floor, [address] [place] [address] Tony Sargent, DO [address] [place] [address] [place] [address] 08/24/2025 11:15 AM EDT Appointment Echo Lab [address] [place] [address] Tony Sargent DO [address] [facility] [address] [place] [address] [email or web address] documented as of this encounter Visit Diagnoses Not on filedocumented in this encounter Care Teams Java J2Ee Lead Relationship Specialty Start Date End Date Mamadou Loving DO 5 [place] [address] PCP - General 02/20/17 07/06/19 Ezra Denney, NACHO [address] [facility] [place] [address] PCP - General Family Medicine 07/07/19 Seymour Ferris, MIKE [address] [place] [address] Historical LMR Provider 02/20/1705/12/21 Tony Miranda MD [address] [place] [address] [place] [address] [email or web address] Historical LMR Provider 02/20/17 Keyla Melton PA-C [address] [place] [address] [email or web address] Historical LMR Provider 02/20/17 05/12/21 Jamie Soto MD 22 [facility] [address] [place] [address] [email or web address] Historical LMR Provider 02/20/17 Mamadou Loving DO [address] [place] [address] Historical LMR Provider 02/20/17 Roger Jorgensen NP [address] [place] [address] [address] [place] [phone] Historical LMR Provider 02/20/17 2 Rinku Carrizales MD [address] [place] [address] [email or web address] Historical LMR Provider 02/20/17 documented as of this encounter Additional Source Comments The information contained in this document represents components of the legal health record. It is not the complete legal health record.[facility]
--- OUTSIDE RECORDS SUMMARY | 2025-01-26 15:04 | XMS_ITS | Encounter Summary ---
Author Organization [facility] Address [address] [place] [address] Phone Care Team Providers Care Air Valve Mechanic Name Role Phone Mamadou Loving DO Primary Care Provider [phone] Seymour Ferris OUTREACH NURSE Unavailable Tony Miranda MD Unavailable Keyla Melton PA-C Unavailable [phone] Jamie Soto MD Unavailable Mamadou Loving DO Unavailable Roger Jorgensen SACK CLEANER Unavailable [phone] Rinku Carrizales MD Unavailable [phone] Ezra Denney NP Primary Care Provider + Encounter Details Date Type Department Care Team (Latest Contact Info) Description 07/09/2018 Ancillary Orders Non-Invasive Cardiology [address] [place] [address] Tony Miranda MD [address] [place] [address] [email or web address] Ischemic cardiomyopathy Social History Tobacco Use [...] Description 02/18/2023 Procedure Pass Non-Invasive Cardiology [address] [place] [address] 02/18/2023 Procedure Pass Non-Invasive Cardiology [address] [place] [address] 07/03/2023 Procedure Pass Non-Invasive Cardiology [address] [place] [address] 10/02/2023 Procedure Pass Non-Invasive Cardiology [address] [place] [address] 10/10/2023 Procedure Pass Non-Invasive Cardiology [address] [place] [address] 10/13/2023 Procedure Pass Non-Invasive Cardiology [address] [place] [address] 08/24/2024 Procedure Pass [place] [address] 02/02/2025 1:00 PM EDT Appointment [place] [address] Norman Schafer MD 22 [facility], [address] [place] [address] 02/10/2025 8:30 AM EDT Ancillary Procedure [facility] [address] [place] 3rd Floor, [address] [place] [address] Rosemarie Jaramillo DNP [address] [place] [address], [address] [place] [address] 02/15/2025 1:00 PM EDT Office Visit [facility] Allergy [address], 4th Floor, [address] [place] [address] Radha Garcia MD 55 [facility] [place] [address] [place] [address] [email or web address] 05/03/2025 11:15 AM EST Ancillary [facility] [address] [place] [address] 3rd Floor, [address] [place] [address] Tony Sargent, DO [address] [place] [address] [place] [address] 08/24/2025 11:15 AM EDT Appointment Echo Lab [address] [place] [address] Tony Sargent DO [address] [place] [address] [place] [address] documented as of this encounter Visit Diagnoses Diagnosis Ischemic cardiomyopathy Other specified forms of chronic ischemic heart disease documented in this encounter Care Teams Air Valve Mechanic Relationship Specialty Start Date End Date Mamadou Loving DO [address] [place] [address] PCP - General 02/20/17 07/06/19 Ezra Denney, NACHO [address] [facility] [place] [address] PCP - General Family Medicine 07/07/19 Seymour Ferris, MIKE [address] [place] [address] Historical LMR Provider 02/20/1705/12/21 Tony Miranda MD [address] [place] [address] [email or web address] Historical LMR Provider 02/20/17 Keyla Melton PA-C [address] [place] [address] Historical LMR Provider 02/20/17 05/12/21 Jamie Soto MD [address] [place] [address] Historical LMR Provider 02/20/17 Mamadou Loving DO [address] [place] [address] Historical LMR Provider 02/20/17 Roger Jorgensen NP [address] [place] [address] [address] [place] [phone] Historical LMR Provider 02/20/17 2 Rinku Carrizales MD [address] [place] [address] [email or web address] Historical LMR Provider 02/20/17 documented as of this encounter Additional Source Comments The information contained in this document represents components of the legal health record. It is not the complete legal health record.[facility]
--- OUTSIDE RECORDS SUMMARY | 2025-01-26 15:04 | XMS_ITS | Encounter Summary ---
Author Organization [facility] Address [address] [place] [address] Phone Care Team Providers Care Title I Teacher Name Role Phone Mamadou Loving DO Primary Care Provider [phone] Seymour Ferris CORROSION ENGINEER Unavailable Tony Miranda MD Unavailable Keyla Melton PA-C Unavailable Jamie Soto MD Unavailable Mamadou Loving DO Unavailable Roger Jorgensen TELESALES PROFESSIONAL Unavailable Rinku Carrizales MD Unavailable [phone] Ezra Denney NP Primary Care Provider + Encounter Details Date Type Department Care Team (Late st Contact Info) Description 09/02/2018 Procedure Pass [facility] PERIOPERATIVE DEPT [address] [place] [address] Social History Tobacco Use Types [...] Description 02/18/2023 Procedure Pass Non-Invasive Cardiology [address] [place] [address] 02/18/2023 Procedure Pass Non-Invasive Cardiology [address] [place] [address] 07/03/2023 Procedure Pass Non-Invasive Cardiology [address] [place] [address] 10/02/2023 Procedure Pass Non-Invasive Cardiology [address] [place] [address] 10/10/2023 Procedure Pass Non-Invasive Cardiology [address] [place] [address] 10/13/2023 Procedure Pass Non-Invasive Cardiology [address] [place] [address] 08/24/2024 Procedure Pass Echo [place] [address] 02/02/2025 1:00 PM EDT Appointment Non-Invasive Cardiology [address] [place] [address] Norman Schafer MD 22 [facility], [address] [place] [address] 02/10/2025 8:30 AM EDT Ancillary Procedure [facility] [address] [place] [address] 3rd Floor, [address] [place] [address] Rosemarie Jaramillo DNP [address] [place] [address], [address] [place] [address] 02/15/2025 1:00 PM EDT Office Visit [facility] Allergy [address], 4th Floor, [address] [place] [address] Radha Garcia MD [address] [place] [address] [address] [place] [address] [email or web address] 05/03/2025 11:15 AM EST Ancillary Procedure [facility] [address] [place] [address] Dr 3rd Floor, [address] [place] [address] Tony Sargent DO [address] [place] [address] [place] [address] 08/24/2025 11:15 AM EDT Appointment Echo Lab [address] [place] [address] Tony Sargent DO [address] [place] [address] [place] [address] documented as of this encounter Visit Diagnoses Not on filedocumented in this encounter Care Teams Title I Teacher Relationship Specialty Start Date End Date Mamadou Loving DO [address] [place] [address] PCP - General 02/20/17 07/06/19 Ezra Denney, NACHO [address] [facility] [place] [address] PCP - General Family Medicine 07/07/19 Seymour Ferris CNP [address] May [address] [place] [address] Historical LMR Provider 02/20/1705/12/21 Tony Miranda MD [address] [place] [address] [email or web address] Historical LMR Provider 02/20/17 MeltonKeyla ary PA-C [address] [place] [address] [email or web address] Historical LMR Provider 02/20/17 05/12/21 Jamie Soto MD [facility] [address] [place] [address] [email or web address] Historical LMR Provider 02/20/17 Mamadou Loving DO [address] [place] [address] Historical LMR Provider 02/20/17 Roger Jorgensen NP [address] [place] [address] [address] [place] [phone] Historical LMR Provider 02/20/17 2 Rinku Carrizales MD [address] [address] [email or web address] Historical LMR Provider 02/20/17 documented as of this encounter Additional Source Comments The information contained in this document represents components of the legal health record. It is not the complete legal health record.[facility]
--- OUTSIDE RECORDS SUMMARY | 2025-01-26 15:04 | XMS_ITS | Encounter Summary ---
Author Organization [facility] Address [address] [place] [address] Phone Care Team Providers Care Wind Tunnel Mechanic Name Role Phone Seymour Ferris Christajacky MOLDING SUPERVISOR Unavailable Tony Miranda MD Unavailable [phone] Keyla Melton PA-C Unavailable [phone] Jamie Soto MD Unavailable [phone] Mamadou Loving DO Unavailable Roger Jorgensen PLANT MAINTENANCE ENGINEER Unavailable Rinku Carrizales MD Unavailable [phone] Ezra Denney PLANT MAINTENANCE ENGINEER Primary Care Provider + Encounter Details Date Type Department Care Team (Late st Contact Info) Description 07/24/2020 Procedure Pass Non-Invasive Cardiology [address] [place] [address] Social History Tobacco Use Types [...] Description 02/18/2023 Procedure Pass Non-Invasive Cardiology [address] [place] [address] 02/18/2023 Procedure Pass Non-Invasive Cardiology [address] [place] [address] 07/03/2023 Procedure Pass Non-Invasive Cardiology [address] [place] [address] 10/02/2023 Procedure Pass Non-Invasive Cardiology [address] [place] [address] 10/10/2023 Procedure Pass Non-Invasive Cardiology [address] [place] [address] 10/13/2023 Procedure Pass Non-Invasive Cardiology [address] [place] [address] 08/24/2024 Procedure Pass Echo [facility] [place] [address] [place] [address] 02/02/2025 1:00 PM EDT Appointment Non-Invasive Cardiology [address] [place] [address] Norman Schafer MD [address] [place] [address], [address] [place] [address] 02/10/2025 8:30 AM EDT Ancillary Procedure [facility] [address] [place] [address] 3rd Floor, [address] [place] [address] Rosemarie Jaramillo DNP [address] [place] [address], [address] [place] [address] 02/15/2025 1:00 PM EDT Office Visit [facility] Allergy [address], 4th Floor, [address] [place] [address] Radha Garcia MD [address] [place] [address] [address] [place] [address] [email or web address]. [facility] 05/03/2025 11:15 AM EST Ancillary Procedure [facility] [address] [place] [address] 3rd Floor, [address] [place] [address] Tony Sargent, DO 22 [facility] [address] [place] [address] 08/24/2025 11:15 AM EDT Appointment Echo Lab [address] [place] [address] Tony Sargent, DO [address] [place] [address] [place] [address] documented as of this encounter Visit Diagnoses Not on filedocumented in this encounter Care Teams Wind Tunnel Mechanic Relationship Specialty Start Date End Date Ezra Denney NP [facility] [place] [address] PCP - General Family Medicine 07/07/19 Seymour Ferris CNP [address] [place] [address] Dr. May [address] [place] [address] [email or web address] Historical LMR Provider 02/20/1705/12/21 Tony Miranda MD [address] [place] [address] Dr. May [address] [place] [address] [email or web address] Historical LMR Provider 02/20/17 Keyla Melton PA-C [address] [place] [address] [email or web address] Historical LMR Provider 02/20/17 05/12/21 Jamie Soto MD [address] [address] [email or web address] Historical LMR Provider 02/20/17 Mamadou Loving DO [address] [place] [address] Historical LMR Provider 02/20/17 Roger Jorgensen NP [address] [place] [address] [address] [place] [address] Historical LMR Provider 02/20/17 2 Rinku Carrizales MD [address] [place] [address] [email or web address] Historical LMR Provider 02/20/17 documented as of this encounter Additional Source Comments The information contained in this document represents components of the legal health record. It is not the complete legal health record.[facility]
--- OUTSIDE RECORDS SUMMARY | 2025-01-26 15:04 | XMS_ITS | Encounter Summary ---
Author Organization [facility] Address [address] [place] [address] Care Team Providers Care Dredge Or Barge Shore Hand Name Role Phone Mamadou Loving Primary Care Provider [phone] Zackary Martinez MD Unavailable Encounter Details Date Type Department Care Team (Late st Contact Info) Description 03/26/2017 Abstract [facility] [place] [address] [place] [address] Trisha Vazquez, RN [address] [place] [address] Social History Tobacco Use Types Packs/Day Years [...] on filedocumented in this encounter Care Teams Dredge Or Barge Shore Hand Relationship Specialty Start Date End Date Mamadou Loving [address] [place] [address] [place] [address] PCP - General Medicine Hospitalist 03/26/17 Zackary Martinez MD [address] [place] [address] [place] [address] Cardiovascular Disease 04/03/17 documented as of this encounter
--- OUTSIDE RECORDS SUMMARY | 2025-01-26 15:04 | XMS_ITS | Encounter Summary ---
Author Organization [facility] Address [address] [place] [address] [place] [address] Phone Care Team Providers Care Integration Engineer Name Role Phone Mamadou Loving DO Primary Care Provider [phone] Seymour Ferris PERFORMANCE TEST ARCHITECT Unavailable [phone] Tony Miranda MD Unavailable Keyla Melton PA-C Unavailable [phone] Jamie Soto MD Unavailable Mamadou Loving DO Unavailable Roger Jorgensen WATER RESOURCES BUSINESS SEGMENT LEADER Unavailable Rinku Carrizales MD Unavailable [phone] Ezra Denney NP Primary Care Provider + Encounter Details Date Type Department Care Team (Latest Contact Info) Description 07/10/2017 Ancillary Orders [facility] [address] 3rd Floor, [address] [place], [place] [id number] Rinku Carrizales MD [address] [address] [email or web address] Cardiomyopathy, unspecified type Social History Tobacco Use [...] Pass Non-Invasive Cardiology [address] [place] [address] 02/18/2023 Procedure Pass Non-Invasive Cardiology [address] [place] [address] 07/03/2023 Procedure Pass Non-Invasive Cardiology [address] [place] [address] 10/02/2023 Procedure Pass Non-Invasive Cardiology [address] [place] [address] 10/10/2023 Procedure Pass Non-Invasive Cardiology [address] [place] [address] 10/13/2023 Procedure Pass Non-Invasive Cardiology [address] [place] [address] 08/24/2024 Procedure Pass [place] [address] 02/02/2025 1:00 PM EDT Appointment [place] [address] Norman Schafer MD 22 [facility], [address] [place] [address] 02/10/2025 8:30 AM EDT Ancillary Procedure [facility] 3rd Floor, [address] [place] [address] Rosemarie Jaramillo DNP [address] [place] [address], [address] [place] [address] 02/15/2025 1:00 PM EDT Office Visit [facility] Allergy [address], 4th Floor, [address] [place] [address] Radha Garcia MD 55 [facility] [place] [address] [place] [address] [email or web address] [facility] 05/03/2025 11:15 AM EST Ancillary Procedure [facility] [address] [place] [address] Dr 3rd Floor, [address] [place] [address] Tony Sargent, DO 22 [facility] [address] [place] [address] 08/24/2025 11:15 AM EDT Appointment Echo Lab [address] [place] [address] Tony Sargent, DO 22 [facility] [address] [place] [address] [email or web address] documented as of this encounter Results * DEVICE CHECK: ICD IN-PERSON PROGRAMMING?? SINGLE LEAD (07/10/2017 2:29 PM EST) Narrative Ramón Ribeiro MD, MPH - 08/01/2017 2:36 PM EDT Reason for appointment: In-office ICD interrogation HPI: Routine in-office ICD interrogation. No device related complaints. Indication for device:Cardiomyopathy Examination: Device type: ICD Sales Associate Key Holder: Medtronic Mode: VVI LR/UP: 40/- bpm Thresholds, [...] type documented in this encounter Care Teams Integration Engineer Relationship Specialty Start Date End Date Mamadou Loving DO [address] [place] [address] PCP - General 02/20/17 07/06/19 Ezra Denney, NACHO [address] [place] [address] [place] [address] PCP - General Family Medicine 07/07/19 Seymour Ferris, MIKE [facility] May [address] [place] [address] Historical LMR Provider 02/20/1705/12/21 Tony Miranda MD [facility] May [address] [place] [address] [email or web address] Historical LMR Provider 02/20/17 Keyla Melton PA-C [address] [place] [address] [email or web address] Historical LMR Provider 02/20/17 05/12/21 Jamie Soto MD [address] [place] [address] [email or web address] Historical LMR Provider 02/20/17 Mamadou Loving DO [address] [place] [address] Historical LMR Provider 02/20/17 Roger Jorgensen, NACHO [address] [place] [address] Historical LMR Provider 02/20/1705/12/ 2 Rinku Carrizales MD [address] [place] [address] [email or web address] Historical LMR Provider 02/20/17 documented as of this encounter Additional Source Comments The information contained in this document represents components of the legal health record. It is not the complete legal health record.[facility]
--- OUTSIDE RECORDS SUMMARY | 2025-01-26 15:05 | XMS_ITS | Encounter Summary ---
Author Organization [facility] Address [address] [place] [address] Phone Care Team Providers Care Ground Defence Officer Name Role Phone Seymour Ferris Christajacky INTERLOCKING PAVEMENT INSTALLER Unavailable Tony Miranda MD Unavailable [phone] Keyla Melton PA-C Unavailable [phone] Jamie Soto MD Unavailable Mamadou Loving DO Unavailable Roger Jorgensen BILLIARD TABLE ASSEMBLER Unavailable Rinku Carrizales MD Unavailable Ezra Denney BILLIARD TABLE ASSEMBLER Primary Care Provider + Encounter Details Date Type Department Care Team (Late st Contact Info) Description 03/05/2020 Procedure Pass Echo Lab [address] [place] [address] Social History Tobacco Use Types [...] Description 02/18/2023 Procedure Pass Non-Invasive Cardiology [address] [place] [address] 02/18/2023 Procedure Pass Non-Invasive Cardiology [address] [place] [address] 07/03/2023 Procedure Pass Non-Invasive Cardiology [address] [place] [address] 10/02/2023 Procedure Pass Non-Invasive Cardiology [address] [place] [address] 10/10/2023 Procedure Pass Non-Invasive Cardiology [address] [place] [address] 10/13/2023 Procedure Pass Non-Invasive Cardiology [address] [place] [address] 08/24/2024 Procedure [place] [address] 02/02/2025 1:00 PM EDT Appointment Non-Invasive Cardiology [address] [place] [address] Norman Schafer MD [address] [place] [address], [address] [place] [address] 02/10/2025 8:30 AM EDT Ancillary Procedure [facility] [address] [place] [address] 3rd Floor, [address] [place] [address] Rosemarie Jaramillo DNP [address] [place] [address], [address] [place] [address] 02/15/2025 1:00 PM EDT Office Visit [facility] Allergy [address], 4th Floor, [address] [place] [address] Radha Garcia MD [address] [place] [address] [address] [place] [address] [email or web address] [facility] 05/03/2025 11:15 AM EST Ancillary Procedure [facility] [address] [place] [address] 3rd Floor, [address] [place] [address] Tony Sargent, DO [address] [place] [address] [place] [address] 08/24/2025 11:15 AM EDT Appointment Echo Lab [address] [place] [address] Tony Sargent, DO [address] [place] [address] [place] [address] documented as of this encounter Visit Diagnoses Not on filedocumented in this encounter Care Teams Ground Defence Officer Relationship Specialty Start Date End Date Ezra Denney NP [facility] [place] [address] PCP - General Family Medicine 07/07/19 Seymour Ferris CNP [address] [place] [address] Dr. May [address] [place] [address] [email or web address] Historical LMR Provider 02/20/1705/12/21 Tony Miranda MD [address] [place] [address] Dr. May [address] [place] [address] [email or web address] Historical LMR Provider 02/20/17 Keyla Melton PA-C [address] [place] [address] [email or web address] Historical LMR Provider 02/20/17 05/12/21 Jamie Soto MD 22 [facility] [address] [place] [address] [email or web address] Historical LMR Provider 02/20/17 Mamadou Loving DO [address] [place] [address] Historical LMR Provider 02/20/17 Roger Jorgensen NP [address] [place] [address] [address] [place] [address] Historical LMR Provider 02/20/17 2 Rinku Carrizales MD [address] [address] [email or web address] Historical LMR Provider 02/20/17 documented as of this encounter Additional Source Comments The information contained in this document represents components of the legal health record. It is not the complete legal health record.[facility]
--- OUTSIDE RECORDS SUMMARY | 2025-01-26 15:05 | XMS_ITS | Encounter Summary ---
Author Organization [facility] Address [address] [place] [address] Phone Care Team Providers Care Business Services Representative Name Role Phone Seymour Ferris Christajacky TRANSFER ENGINEER Unavailable Tony Miranda MD Unavailable [phone] Keyla Melton PA-C Unavailable Jamie Soto MD Unavailable Mamadou Loving DO Unavailable Roger Jorgensen COMMODITY MANAGEMENT SPECIALIST Unavailable Rinku Carrizales MD Unavailable [phone] Ezra Denney COMMODITY MANAGEMENT SPECIALIST Primary Care Provider + Encounter Details Date Type Department Care Team (Late st Contact Info) Description 03/14/2020 Procedure Pass Non-Invasive Cardiology [address] [place] [address] Social History Tobacco Use Types [...] Description 02/18/2023 Procedure Pass Non-Invasive Cardiology [address] [place] [address] 02/18/2023 Procedure Pass Non-Invasive Cardiology [address] [place] [address] 07/03/2023 Procedure Pass Non-Invasive Cardiology [address] [place] [address] 10/02/2023 Procedure Pass Non-Invasive Cardiology [address] [place] [address] 10/10/2023 Procedure Pass Non-Invasive Cardiology [address] [place] [address] 10/13/2023 Procedure Pass Non-Invasive Cardiology [address] [place] [address] 08/24/2024 Procedure [place] [address] 02/02/2025 1:00 PM EDT Appointment Non-Invasive Cardiology [address] [place] [address] Norman Schafer MD [address] [place] [address], [address] [place] [address] 02/10/2025 8:30 AM EDT Ancillary Procedure [facility] [address] [place] [address] 3rd Floor, [address] [place] [address] Rosemarie Jaramillo DNP [address] [place] [address], [address] [place] [address] 02/15/2025 1:00 PM EDT Office Visit [facility] Allergy [address], 4th Floor, [address] [place] [address] Radha Garcia MD [address] [place] [address] [address] [place] [address] [email or web address] 05/03/2025 11:15 AM EST Ancillary Procedure [facility] [address] [place] [address] 3rd Floor, [address] [place] [address] Tony Sargent, DO [address] [place] [address] [place] [address] 08/24/2025 11:15 AM EDT Appointment Echo Lab [address] [place] [address] Tony Sargent, DO [address] [place] [address] [place] [address] documented as of this encounter Visit Diagnoses Not on filedocumented in this encounter Care Teams Business Services Representative Relationship Specialty Start Date End Date Ezra Denney NP [facility] [place] [address] PCP - General Family Medicine 07/07/19 Seymour Ferris CNP [address] [place] [address] Dr. May [address] [place] [address] [email or web address] Historical LMR Provider 02/20/1705/12/21 Tony Miranda MD [address] [place] [address] Dr. May [address] [place] [address] [email or web address] Historical LMR Provider 02/20/17 Keyla Melton PA-C [address] [place] [address] [email or web address] Historical LMR Provider 02/20/17 05/12/21 Jamie Soto MD [address] [facility] [address] [place] [address] [email or web address] Historical LMR Provider 02/20/17 Mamadou Loving DO [address] [place] [address] Historical LMR Provider 02/20/17 Roger Jorgensen NP [address] [place] [address] 2[address] [place] [address] Historical LMR Provider 02/20/17 2 Rinku Carrizales MD [address] [address] [email or web address] Historical LMR Provider 02/20/17 documented as of this encounter Additional Source Comments The information contained in this document represents components of the legal health record. It is not the complete legal health record.[facility]
--- OUTSIDE RECORDS SUMMARY | 2025-01-26 15:05 | XMS_ITS | Encounter Summary ---
Author Organization [facility] Address [address] [place] [address] Phone Care Team Providers Care Boat Builder And Repairer Name Role Phone Tony Miranda MD Unavailable [phone] Jamie Soto MD Unavailable [phone] Rinku Carrizales MD Unavailable [phone] Ezra Denney BINDING END STITCHER Primary Care Provider + Encounter Details Date Type Department Care Team (Late st Contact Info) Description 03/05/2024 Procedure Pass Echo Lab [address] [place] [address] Social History Tobacco Use Types [...] Description 02/18/2023 Procedure Pass Non-Invasive Cardiology [address] [place] [address] 02/18/2023 Procedure Pass Non-Invasive Cardiology [address] [place] [address] 07/03/2023 Procedure Pass Non-Invasive Cardiology [address] [place] [address] 10/02/2023 Procedure Pass Non-Invasive Cardiology [address] [place] [address] 10/10/2023 Procedure Pass Non-Invasive Cardiology [address] [place] [address] 10/13/2023 Procedure Pass Non-Invasive Cardiology [address] [place] [address] 08/24/2024 Procedure Pass Echo Lab [address] [place] [address] 02/02/2025 1:00 PM EDT Appointment Non-Invasive Cardiology [address] [place] [address] Norman Schafer MD [address] [place] [address], [address] [place] [address] 02/10/2025 8:30 AM EDT Ancillary Procedure [facility] [address] [place] [address] 3rd Floor, [address] [place] [address] Rosemarie Jaramillo DNP [address] [place] [address], [address] [place] [address] 02/15/2025 1:00 PM EDT Office Visit [facility] Allergy [address], 4th Floor, [address] [place] [address] Radha Garcia MD [address] [place] [address] [address] [place] [address] [email or web address] [facility] 05/03/2025 11:15 AM EST Ancillary Procedure [facility] [address] [place] [address] Dr 3rd Floor, [address] [place] [address] Tony Sargent, DO 22 [facility] [address] [place] [address] 08/24/2025 11:15 AM EDT Appointment Echo Lab [address] [place] [address] Tony Sargent, DO [address] [place] [address] [place] [address] [email or web address] documented as of this encounter Visit Diagnoses Not on filedocumented in this encounter Care Teams Boat Builder And Repairer Relationship Specialty Start Date End Date Ezra Denney NP [address] [facility] [place] [address] PCP - General Family Medicine 07/07/19 Tony Miranda MD [email or web address] Historical LMR Provider 02/20/17 Jamie Soto MD [address] [place] [address], [address] [place] [address] [email or web address] Historical LMR Provider 02/20/17 Rinku Carrizales MD [address] [place] [address] [email or web address] Historical LMR Provider 02/20/17 documented as of this encounter Additional Source Comments The information contained in this document represents components of the legal health record. It is not the complete legal health record.[facility]
--- OUTSIDE RECORDS SUMMARY | 2025-01-26 15:05 | XMS_ITS | Encounter Summary ---
Author Organization [facility] Address [address] [place] [address] Phone Care Team Providers Care Business Analytics Intern Name Role Phone Seymour Ferris Christajacky FAT PRESSROOM WORKER Unavailable Tony Miranda MD Unavailable [phone] Keyla Melton PA-C Unavailable Jamie Soto MD Unavailable Mamadou Loving DO Unavailable Roger Jorgensen PART TIME Unavailable [phone] Rinku Carrizales MD Unavailable [phone] Ezra Denney PART TIME Primary Care Provider + Encounter Details Date Type Department Care Team (Late st Contact Info) Description 02/23/2020 Procedure Pass Non-Invasive Cardiology [address] [place] [address] Social History Tobacco Use Types [...] Description 02/18/2023 Procedure Pass Non-Invasive Cardiology [address] [place] [address] 02/18/2023 Procedure Pass Non-Invasive Cardiology [address] [place] [address] 07/03/2023 Procedure Pass Non-Invasive Cardiology [address] [place] [address] 10/02/2023 Procedure Pass Non-Invasive Cardiology [address] [place] [address] 10/10/2023 Procedure Pass Non-Invasive Cardiology [address] [place] [address] 10/13/2023 Procedure Pass Non-Invasive Cardiology [address] [place] [address] 08/24/2024 Procedure Pass [place] [address] 02/02/2025 1:00 PM EDT Appointment Non-Invasive Cardiology [address] [place] [address] Norman Schafer MD [address] [place] [address], [address] [place] [address] 02/10/2025 8:30 AM EDT Ancillary Procedure [facility] [address] [place] [address] 3rd Floor, [address] [place] [address] Rosemarie Jaramillo DNP [address] [place] [address], [address] [place] [address] 02/15/2025 1:00 PM EDT Office Visit [facility] [address], 4th Floor, [address] [place] [address] Radha Garcia MD [address] [place] [address] [address] [place] [address] [email or web address]. [facility] 05/03/2025 11:15 AM EST Ancillary Procedure [facility] [address] [place] [address] 3rd Floor, [address] [place] [address] Tony Sargent, DO [address] [place] [address] [place] [address] 08/24/2025 11:15 AM EDT Appointment Echo Lab [address] [place] [address] Tony Sargent, DO [address] [place] [address] [place] [address] documented as of this encounter Visit Diagnoses Not on filedocumented in this encounter Care Teams Business Analytics Intern Relationship Specialty Start Date End Date Ezra Denney NP [facility] [place] [address] PCP - General Family Medicine 07/07/19 Seymour Ferris CNP [address] [place] [address] Dr. [address] [place] [address] [email or web address] Historical LMR Provider 02/20/1705/12/21 Tony Miranda MD [address] [place] [address] Dr. [address] [place] [address] [email or web address] Historical LMR Provider 02/20/17 Keyla Melton PA-C [address] [place] [address] [email or web address] Historical LMR Provider 02/20/17 05/12/21 Jamie Soto MD [address] [facility] [address] [place] [address] [email or web address] Historical LMR Provider 02/20/17 Mamadou Loving DO [address] [place] [address] Historical LMR Provider 02/20/17 Roger Jorgensen NP [address] [place] [address] [address] [place] [address] Historical LMR Provider 02/20/17 2 Rinku Carrizales MD [address] [address] [email or web address] Historical LMR Provider 02/20/17 documented as of this encounter Additional Source Comments The information contained in this document represents components of the legal health record. It is not the complete legal health record.[facility]
--- OUTSIDE RECORDS SUMMARY | 2025-01-26 15:05 | XMS_ITS | Encounter Summary ---
Author Organization [facility] Address [address] [place] [address] Phone Care Team Providers Care Awning Assembler Name Role Phone Tony Miranda MD Unavailable Jamie Soto MD Unavailable Rinku Carrizales MD Unavailable [phone] Ezra Denney SPECIAL EFFECTS DESIGNER Primary Care Provider + Encounter Details Date Type Department Care Team (Late st Contact Info) Description 12/17/2021 Procedure Pass Echo Lab [place] [address] [place] [address] Social History Tobacco Use Types Packs/Day Years [...] Description 02/18/2023 Procedure Pass Non-Invasive Cardiology [address] [place] [address] 02/18/2023 Procedure Pass Non-Invasive Cardiology [address] [place] [address] 07/03/2023 Procedure Pass Non-Invasive Cardiology [address] [place] [address] 10/02/2023 Procedure Pass Non-Invasive Cardiology [address] [place] [address] 10/10/2023 Procedure Pass Non-Invasive Cardiology [address] [place] [address] 10/13/2023 Procedure Pass Non-Invasive Cardiology [address] [place] [address] 08/24/2024 Procedure Pass Echo Lab [place] [address] [place] [address] 02/02/2025 1:00 PM EDT Appointment Non-Invasive Cardiology [address] [place] [address] Norman Schafer MD [address] [place] [address], [address] [place] [address] 02/10/2025 8:30 AM EDT Ancillary Procedure [facility] [address] 3rd Floor, [address] [place] [address] Rosemarie Jaramillo DNP [address] [place] [address], [address] [place] [address] 02/15/2025 1:00 PM EDT Office Visit [facility] Allergy [address], 4th Floor, [address] [place] [address] Radha Garcia MD [address] [place] [address] [address] [place] [address] [email or web address] 05/03/2025 11:15 AM EST Ancillary Procedure [facility] [address] 3rd Floor, [address] [place] [address] Tony Sargent DO [address] [address] 08/24/2025 11:15 AM EDT Appointment Echo Lab [address] [place] [address] Tony Sargent DO [address] [address] [email or web address] documented as of this encounter Visit Diagnoses Not on filedocumented in this encounter Care Teams Awning Assembler Relationship Specialty Start Date End Date Ezra Dennye NP [address] [place] [address] PCP - General Family Medicine 07/07/19 Tony Miranda MD [email or web address] Historical LMR Provider 02/20/17 Jamei Soto MD [address] [address] [email or web address] Historical LMR Provider 02/20/17 Rinku Carrizales MD [address] [place] [address] [email or web address] Historical LMR Provider 02/20/17 documented as of this encounter Additional Source Comments The information contained in this document represents components of the legal health record. It is not the complete legal health record.[facility]
--- OUTSIDE RECORDS SUMMARY | 2025-01-26 15:05 | XMS_ITS | Encounter Summary ---
Author Organization [facility] Address [address] [facility] [address] [place] [address] Phone Care Team Providers Care Fundraising Director Name Role Phone Tony Miranda MD Unavailable Jamie Soto MD Unavailable Rinku Carrizales MD Unavailable [phone] Ezra Denney DRY CLEANER HAND Primary Care Provider + Reason for Visit * Reason Comments Medication Refill Encounter Details Date Type Department Care Team (Late st Contact Info) Description [facility] [address] [place] [address] 3rd Floor, [address] [place] [address] Traci Gallardo DNP [address] [place] [address], [address] [phone] [email or web address] Medication Refill Social History Tobacco Use Types [...] Description 02/18/2023 Procedure Pass Non-Invasive Cardiology [address] [place] [address] 02/18/2023 Procedure Pass Non-Invasive Cardiology [address] [place] [address] 07/03/2023 Procedure Pass Non-Invasive Cardiology [address] [place] [address] 10/02/2023 Procedure Pass Non-Invasive Cardiology [address] [place] [address] 10/10/2023 Procedure Pass Non-Invasive Cardiology [address] [place] [address] 10/13/2023 Procedure Pass Non-Invasive Cardiology [address] [place] [address] 08/24/2024 Procedure Pass Echo Lab [address] [place] [address] 02/02/2025 1:00 PM EDT Appointment Non-Invasive Cardiology [address] [place] [address] [place] [address] Norman Schafer MD [address] [place] [address], [address] [address] 02/10/2025 8:30 AM EDT Ancillary Procedure [facility] [address] [place] [address] 3rd Floor, [address] [place] [address] Rosemarie Jaramillo DNP [address] [place] [address], [address] [address] 02/15/2025 1:00 PM EDT Office Visit [facility] Allergy [place] [address] [facility], 4th Floor, [address] [place] [address] Radha Garcia MD [address] [facility] [address] [place] [address] [email or web address] 05/03/2025 11:15 AM EST Ancillary [facility] [address] [place] [address] Dr 3rd Floor, [address] [place] [address] Tony Sargent DO [address] [place] [address] 08/24/2025 11:15 AM EDT Appointment Echo Lab [address] [place] [address] Tony Sargent, DO [address] [address] [email or web address] documented as of this encounter Visit Diagnoses Not on filedocumented in this encounter Care Teams Fundraising Director Relationship Specialty Start Date End Date Ezra Denney NP [address] [place] [address] PCP - General Family Medicine 07/07/19 Tony Miranda MD [email or web address] Historical LMR Provider 02/20/17 Jamie Soto MD [address] [place] [address], [address] [address] [email or web address] Historical LMR Provider 02/20/17 Rinku Carrizales MD [address] [address] [email or web address] Historical LMR Provider 02/20/17 documented as of this encounter Additional Source Comments The information contained in this document represents components of the legal health record. It is not the complete legal health record.[facility]
--- OUTSIDE RECORDS SUMMARY | 2025-01-26 15:05 | XMS_ITS | Encounter Summary ---
Author Organization [facility] Address [address] [place] [address] Phone Care Team Providers Care Director Of Partnerships Name Role Phone Mamadou Loving DO Primary Care Provider [phone] Seymour Ferris PATCH SANDER Unavailable [phone] Tony Miranda MD Unavailable Keyla Melton PA-C Unavailable [phone] Jamie Soto MD Unavailable [phone] Mamadou Loving DO Unavailable Roger Jorgensen CERTIFIED SURGICAL TECH/FIRST ASSISTANT Unavailable [phone] Rinku Carrizales MD Unavailable [phone] Ezra Denney NP Primary Care Provider + Encounter Details Date Type Department Care Team (Late st Contact Info) Description 09/12/2017 Ancillary [facility] [address] [place] [address] Tony Miranda MD [address] [place] [address] [place] [address] [email or web address] Social History Tobacco Use Types Packs/Day Years [...] Pass Non-Invasive Cardiology [address] [place] [address] 02/18/2023 Procedure Pass Non-Invasive Cardiology [address] [place] [address] 07/03/2023 Procedure Pass Non-Invasive Cardiology [address] [place] [address] 10/02/2023 Procedure Pass Non-Invasive Cardiology [address] [place] [address] 10/10/2023 Procedure Pass Non-Invasive Cardiology [address] [place] [address] 10/13/2023 Procedure Pass Non-Invasive Cardiology [address] [place] [address] 08/24/2024 Procedure [place] [address] 02/02/2025 1:00 PM EDT Appointment Non-Invasive Cardiology [address] [place] [address] Norman Schafer MD 22 [facility], [address] [place] [address] 02/10/2025 8:30 AM EDT Ancillary Procedure [facility] [address]rd Floor, [address] [place] [address] Rosemarie Jaramillo DNP [address] [place] [address], [address] [place] [address] 02/15/2025 1:00 PM EDT Office Visit [facility] Allergy [address], 4th Floor, [address] [place] [address] Radha Garcia MD [facility] [place] [address] [place] [address] [email or web address]. [facility] 05/03/2025 11:15 AM EST Ancillary Procedure [facility] [address] [place] [address] Dr 3rd Floor, [address] [place] [address] Tony Sargent, DO [address] [place] [address] [place] [address] 08/24/2025 11:15 AM EDT Appointment Echo Lab [address] [place] [address] Tony Sargent, DO [address] [place] [address] [place] [address] documented as of this encounter Visit Diagnoses Not on filedocumented in this encounter Care Teams Director Of Partnerships Relationship Specialty Start Date End Date Mamadou Loving DO [address] [place] [address] PCP - General 02/20/17 07/06/19 Ezra Denney, NACHO [address] [place] [address] PCP - General Family Medicine 07/07/19 Seymour Ferris, MIKE [address] Dr[address] May [address] [place] [address] Historical LMR Provider 02/20/1705/12/21 Tony Miranda MD [address] May [address] [place] [address] [email or web address] Historical LMR Provider 02/20/17 Keyla Melton PA-C [address] [place] [address] [email or web address] Historical LMR Provider 02/20/17 05/12/21 Jamie Soto MD [address] [facility] [address] [place] [address] [email or web address] Historical LMR Provider 02/20/17 Mamadou Loving DO [address] [place] [address] Historical LMR Provider 02/20/17 Roger Jorgensen NP [address] [place] [address] [address] [place] [address] Historical LMR Provider 02/20/17 2 Rinku Carrizales MD [address] [place] [address] [email or web address] Historical LMR Provider 02/20/17 documented as of this encounter Additional Source Comments The information contained in this document represents components of the legal health record. It is not the complete legal health record.[facility]
--- OUTSIDE RECORDS SUMMARY | 2025-01-26 15:05 | XMS_ITS | Encounter Summary ---
Author Organization [facility] Address [address] [place] [address] Phone Care Team Providers Care Homicide Squad Lieutenant Name Role Phone Tony Miranda MD Unavailable Jamie Soto MD Unavailable iRnku Carrizales MD Unavailable [phone] Ezra Denney PEOPLESOFT PROGRAMMER Primary Care Provider + Encounter Details Date Type Department Care Team (Late st Contact Info) Description 09/25/2023 Procedure Pass Non-Invasive Cardiology [address] [place] [address] Social History Tobacco Use Types Packs/Day Years [...] Description 02/18/2023 Procedure Pass Non-Invasive Cardiology [address] [place] [address] 02/18/2023 Procedure Pass Non-Invasive Cardiology [address] [place] [address] 07/03/2023 Procedure Pass Non-Invasive Cardiology [address] [place] [address] 10/02/2023 Procedure Pass Non-Invasive Cardiology [address] [place] [address] 10/10/2023 Procedure Pass Non-Invasive Cardiology [address] [place] [address] 10/13/2023 Procedure Pass Non-Invasive Cardiology [address] [place] [address] 08/24/2024 Procedure Pass Echo Lab [address] [place] [address] 02/02/2025 1:00 PM EDT Appointment Non-Invasive Cardiology [address] [place] [address] Norman Schafer MD [address] [place] [address], [address] [place] [address] 02/10/2025 8:30 AM EDT Ancillary Procedure [facility] [address] [place] [address] 3rd Floor, [address] [place] [address] Rosemarie Jaramillo DNP [address] [place] [address], [address] [place] [address] 02/15/2025 1:00 PM EDT Office Visit [facility] [address], 4th Floor, [address] [place] [address] Radha Garcia MD [address] [place] [address] [address] [place] [address] [email or web address] 05/03/2025 11:15 AM EST Ancillary Procedure [facility] [address] [place] [address] Dr 3rd Floor, [address] [place] [address] Tony Sargent, DO [address] [facility] [address] [place] [address] 08/24/2025 11:15 AM EDT Appointment Echo Lab [address] [place] [address] Tony Sargent, DO [address] [place] [address] [place] [address] [email or web address] documented as of this encounter Visit Diagnoses Not on filedocumented in this encounter Care Teams Homicide Squad Lieutenant Relationship Specialty Start Date End Date Ezra Denney NP [address] [place] [address] PCP - General Family Medicine 07/07/19 Tony Miranda MD [email or web address] Historical LMR Provider 02/20/17 Jamie Soto MD [address] [place] [address], [address] [place] [address] [email or web address] Historical LMR Provider 02/20/17 Rinku Carrizales MD [address] [place] [address] [email or web address] Historical LMR Provider 02/20/17 documented as of this encounter Additional Source Comments The information contained in this document represents components of the legal health record. It is not the complete legal health record.[facility]
--- OUTSIDE RECORDS SUMMARY | 2025-01-26 15:05 | XMS_ITS | Encounter Summary ---
Author Organization [facility] Address [address] [place] [address] Phone Care Team Providers Care Drywall Mechanic Name Role Phone Mamadou Loving DO Primary Care Provider [phone] Seymour Ferris CDL INSTRUCTOR Unavailable Tony Miranda MD Unavailable Keyla Melotn PA-C Unavailable [phone] Jamie Soto MD Unavailable Mamadou Loving DO Unavailable Roger Jorgensen WEAPONS SYSTEM INSTRUMENT MECHANIC Unavailable Rinku Carrizales MD Unavailable [phone] Ezra Denney NP Primary Care Provider + Encounter Details Date Type Department Care Team (Latest Contact Info) Description 09/12/2017 Ancillary Orders Non-Invasive Cardiology [address] [place] [address] Tony Miranda MD [address] [place] [address] [email or web address] Ischemic cardiomyopathy Social History Tobacco Use [...] Pass Non-Invasive Cardiology [address] [place] [address] 02/18/2023 Procedure Pass Non-Invasive Cardiology [address] [place] [address] 07/03/2023 Procedure Pass Non-Invasive Cardiology [address] [place] [address] 10/02/2023 Procedure Pass Non-Invasive Cardiology [address] [place] [address] 10/10/2023 Procedure Pass Non-Invasive Cardiology [address] [place] [address] 10/13/2023 Procedure Pass Non-Invasive Cardiology [address] [place] [address] 08/24/2024 Procedure Pass [place] [address] 02/02/2025 1:00 PM EDT Appointment [place] [address] Norman Schafer MD [address] [facility], [address] [place] [address] 02/10/2025 8:30 AM EDT Ancillary Procedure [facility] [address] [place] 3rd Floor, [address] [place] [address] Rosemarie Jaramillo DNP [address] [place] [address], [address] [place] [address] 02/15/2025 1:00 PM EDT Office Visit [facility] [address], 4th Floor, [address] [place] [address] Radha Garcia MD [address] [facility] [place] [address] [place] [address] [email or web address] 05/03/2025 11:15 AM EST Ancillary Procedure [facility] [address] [place] [address] Dr 3rd Floor, [address] [place], [place] 6[address]60 Tony Sargent, DO [address] [facility] [address] [place] [address] 08/24/2025 11:15 AM EDT Appointment Echo Lab [address] [place], [place] [address] Tony Sargent, DO [address] [facility] [address] [place] [address] [email or web address] documented as of this encounter Results * [...] device: Ischemic cardiomyopathy Examination: Device type: ICD Metal Wire Coating Operator: Medtr[employer] Mode: VVI LRL/URL: 40/- bpm Thresholds, [...] remote Report prepared by Iker Chan RN us Tony Miranda MD CV CARDIAC SERVICES ORDER LILA Final Result documented in this encounter Visit Diagnoses Diagnosis Ischemic cardiomyopathy Other specified forms of chronic ischemic heart disease documented in this encounter Care Teams Drywall Mechanic Relationship Specialty Start Date End Date Mamadou Loving DO [address] [place] [address] PCP - General 02/20/17 07/06/19 Ezra Denney NP [facility] [place] [address] PCP - General Family Medicine 07/07/19 Seymour Ferris CNP [address] [place] [address] [email or web address] Historical LMR Provider 02/20/1705/12/21 Tony Miranda MD [address] May [address] [place] [address] [email or web address] Historical LMR Provider 02/20/17 Keyla Melton PA-C [address] [place] [address] [email or web address] Historical LMR Provider 02/20/17 05/12/21 Jamie Soto MD [address] [place] [address] [address] [place] [address] [email or web address] Historical LMR Provider 02/20/17 Mamadou Loving DO [address] [place] [address] Historical LMR Provider 02/20/17 Roger Jorgensen NP [address] [place] [phone] Historical LMR Provider 02/20/17 2 Rinku Carrizales MD [address] [place] [address] [email or web address] Historical LMR Provider 02/20/17 documented as of this encounter Additional Source Comments The information contained in this document represents components of the legal health record. It is not the complete legal health record.[facility]
--- OUTSIDE RECORDS SUMMARY | 2025-01-26 15:05 | XMS_ITS | Encounter Summary ---
Author Organization [facility] Address [address] [place] [address] Phone Care Team Providers Care Life Management Teacher Name Role Phone Tony Miranda MD Unavailable Jamie Soto MD Unavailable Rinku Carrizales MD Unavailable [phone] Ezra Denney STAPLING MACHINE OPERATOR Primary Care Provider + Encounter Details Date Type Department Care Team (Late st Contact Info) Description 08/12/2022 Procedure Pass Non-Invasive Cardiology [address] [place] [address] Social History Tobacco Use Types Packs/Day Years [...] Description 02/18/2023 Procedure Pass Non-Invasive Cardiology [address] [place] [address] 02/18/2023 Procedure Pass Non-Invasive Cardiology [address] [place] [address] 07/03/2023 Procedure Pass Non-Invasive Cardiology [address] [place] [address] 10/02/2023 Procedure Pass Non-Invasive Cardiology [address] [place] [address] 10/10/2023 Procedure Pass Non-Invasive Cardiology [address] [place] [address] 10/13/2023 Procedure Pass Non-Invasive Cardiology [address] [place] [address] 08/24/2024 Procedure Pass Echo [facility] [place] [address] [place] [address] 02/02/2025 1:00 PM EDT Appointment Non-Invasive Cardiology [address] [place] [address] Norman Schafer MD [address] [place] [address], [address] [place] [address] 02/10/2025 8:30 AM EDT Ancillary Procedure [facility] [address] [place] 3rd Floor, [address] [place] [address] Rosemarie Jaramillo DNP [address] [place] [address], [address] [place] [address] 02/15/2025 1:00 PM EDT Office Visit [facility] Allergy [address], 4th Floor, [address] [place] [address] Radha Garcia MD [address] [place] [address] [address] [place] [address] [email or web address] 05/03/2025 11:15 AM EST Ancillary Procedure [facility] [address] 3rd Floor, [address] [place] [address] Tony Sargent DO [address] [address] 08/24/2025 11:15 AM EDT Appointment Echo Lab [address] [place] [address] Tony Sargent DO [address] [address] [email or web address] documented as of this encounter Visit Diagnoses Not on filedocumented in this encounter Care Teams Life Management Teacher Relationship Specialty Start Date End Date Ezra Denney NP [address] [facility] [place] [address] PCP - General Family Medicine 07/07/19 Tony Miranda MD [email or web address] Historical LMR Provider 02/20/17 Jamie Soto MD [address] [address] [email or web address] Historical LMR Provider 02/20/17 Rinku Carrizales MD [address] [place] [address] [email or web address] Historical LMR Provider 02/20/17 documented as of this encounter Additional Source Comments The information contained in this document represents components of the legal health record. It is not the complete legal health record.[facility]
--- OUTSIDE RECORDS SUMMARY | 2025-01-26 15:05 | XMS_ITS | Encounter Summary ---
Author Organization [facility] Address [address] [place] [address] Phone Care Team Providers Care Vehicle Body Builder Name Role Phone Mamadou Loving DO Primary Care Provider [phone] Seymour Ferris BIOCHEMICAL ENGINEER Unavailable Tony Miranda MD Unavailable Keyla Melton PA-C Unavailable [phone] Jamie Soto MD Unavailable Mamadou Loving DO Unavailable Roger Jorgensen CHAIRPERSON ANESTHESIOLOGY Unavailable Rinku Carrizales MD Unavailable [phone] Ezra Denney NP Primary Care Provider + Encounter Details Date Type Department Care Team (Late st Contact Info) Description 02/22/2017 Ancillary [facility] [address] [place] [address] Rinku Carrizales MD [address] [place] [address] [email or web address] Social History Tobacco Use Types Packs/Day Years [...] Description 02/18/2023 Procedure Pass Non-Invasive Cardiology [address] [place] [address] 02/18/2023 Procedure Pass Non-Invasive Cardiology [address] [place] [address] 07/03/2023 Procedure Pass Non-Invasive Cardiology [address] [place] [address] 10/02/2023 Procedure Pass Non-Invasive Cardiology [address] [place] [address] 10/10/2023 Procedure Pass Non-Invasive Cardiology [address] [place] [address] 10/13/2023 Procedure Pass Non-Invasive Cardiology [address] [place] [address] 08/24/2024 Procedure Pass Echo Lab [place] [address] 02/02/2025 1:00 PM EDT Appointment Non-Invasive Cardiology [address] [place] [address] Norman Schafer MD [address] [place] [address], [address] [place] [address] 02/10/2025 8:30 AM EDT Ancillary Procedure [facility] [address] [place] [address] 3rd Floor, [address] [place] [address] Rosemarie Jaramillo DNP [address] [place] [address], [address] [place] [address] 02/15/2025 1:00 PM EDT Office Visit [facility] Allergy [address], 4th Floor, [address] [place] [address] Radha Garcia MD [address] [place], [place] [address]wkey [address] [place] [address] [email or web address] 05/03/2025 11:15 AM EST Ancillary Procedure [facility] [address] [place] [address] Dr 3rd Floor, [address] [place] [address] Tony Sargent DO [address] [place] [address] [place] [address] 08/24/2025 11:15 AM EDT Appointment Echo Lab [address] [place] [address] Tony Sargent DO 22 [facility] [address] [place] [address] documented as of this encounter Visit Diagnoses Not on filedocumented in this encounter Care Teams Vehicle Body Builder Relationship Specialty Start Date End Date Mamadou Loving DO [address] [place] [address] PCP - General 02/20/17 07/06/19 Ezra Denney, NACHO [address] [facility] [place] [address] PCP - General Family Medicine 07/07/19 Seymour Ferris CNP [place] [address] [place] [address] Historical LMR Provider 02/20/1705/12/21 Tony Miranda MD [place] [address] [place] [address] [email or web address] Historical LMR Provider 02/20/17 Keyla Melton PA-C [address] [place] [address] [email or web address] Historical LMR Provider 02/20/17 05/12/21 Jamie Soto MD 22 [facility] [address] [place] [address] [email or web address] Historical LMR Provider 02/20/17 Mamadou Loving DO [address] [place] [address] Historical LMR Provider 02/20/17 Roger Jorgensen NP [address] [place] [address] [address] [place] [phone] Historical LMR Provider 02/20/17 2 Rinku Carrizales MD [address] [place] [address] [email or web address] Historical LMR Provider 02/20/17 documented as of this encounter Additional Source Comments The information contained in this document represents components of the legal health record. It is not the complete legal health record.[facility]
--- OUTSIDE RECORDS SUMMARY | 2025-01-26 15:05 | XMS_ITS | Encounter Summary ---
Author Organization [facility] Address [address] [place] [address] Phone Care Team Providers Care Child Daycare Worker Name Role Phone Mamadou Loving DO Primary Care Provider [phone] Seymour Ferris FREIGHT AND PASSENGER AGENT Unavailable [phone] Tony Miranda MD Unavailable Keyla Melton PA-C Unavailable [phone] Jamie Soto MD Unavailable [phone] Mamadou Loving DO Unavailable Roger Jorgensen OVERSEER [employer] Unavailable [phone] Rinku Carrizales MD Unavailable [phone] Ezra Denney NP Primary Care Provider + Encounter Details Date Type Department Care Team (Late st Contact Info) Description 02/22/2017 Ancillary Orders Non-Invasive Cardiology [address] [place] [address] Tony Miranda MD [address] [place] [id number] [email or web address] Diagnosis unknown Social History Tobacco Use Types [...] Pass Non-Invasive Cardiology [address] [place] [address] 02/18/2023 Procedure Pass Non-Invasive Cardiology [address] [place] [address] 07/03/2023 Procedure Pass Non-Invasive Cardiology [address] [place] [address] 10/02/2023 Procedure Pass Non-Invasive Cardiology [address] [place] [address] 10/10/2023 Procedure Pass Non-Invasive Cardiology [address] [place] [address] 10/13/2023 Procedure Pass Non-Invasive Cardiology [address] [place] [address] 08/24/2024 Procedure Pass [place] [id number] 02/02/2025 1:00 PM EDT Appointment [place] [id number] Norman Schafer MD 22 [facility], [address] [place] [address] 02/10/2025 8:30 AM EDT Ancillary Procedure [facility] [address] Floor, [address] [place] [address] Rosemarie Jaramillo DNP [address] [place] [address], [address] [place] [address] 02/15/2025 1:00 PM EDT Office Visit [facility] [place] [address], 4th Floor, [address] [place] [address] Radha Garcia MD 55 [facility] [place] [address] [place] [address] [email or web address] 05/03/2025 11:15 AM EST Ancillary Procedure [facility] [address] [place] [address] Dr 3rd Floor, [address] [place] [address] Tony Sargent, DO [address] [place] [address] [place] [address] 08/24/2025 11:15 AM EDT Appointment Echo Lab [address] [place] [address] Tony Sargent DO [address] [place] [address] [place] [address] [email or web address] documented as of this encounter Visit Diagnoses Diagnosis Diagnosis unknown documented in this encounter Care Teams Child Daycare Worker Relationship Specialty Start Date End Date Mamadou Loving DO [address] [place] [address] PCP - General 02/20/17 07/06/19 Ezra Denney, NACHO 1963 [facility] [place] [id number] PCP - General Family Medicine 07/07/19 Seymour Ferris, MIKE [address] [place] [address] Historical LMR Provider 02/20/1705/12/21 Tony Miranda MD [address] [place] [address] [place] [address] [email or web address] Historical LMR Provider 02/20/17 Keyla Melton PA-C 30 [place] [address] Historical LMR Provider 02/20/17 05/12/21 Jamie Soto MD 22 [facility] [address] [place] [address] [email or web address] Historical LMR Provider 02/20/17 Mamadou Loving DO [address] [place] [address] Historical LMR Provider 02/20/17 Roger Jorgensen NP [address] [place] [address] [address] [place] [phone] Historical LMR Provider 02/20/17 2 Rinku Carrizales MD [address] [place] [address] [email or web address] Historical LMR Provider 02/20/17 documented as of this encounter Additional Source Comments The information contained in this document represents components of the legal health record. It is not the complete legal health record.[facility]
--- OUTSIDE RECORDS SUMMARY | 2025-01-26 15:05 | XMS_ITS | Encounter Summary ---
Author Organization [facility] Address [address] [place] [address] Phone Care Team Providers Care Senior Asic Engineer Name Role Phone Seymour Ferris PUBLIC HEALTH ASSISTANT Unavailable [phone] Tony Miranda MD Unavailable Keyla Melton PA-C Unavailable Jamie Soto MD Unavailable Mamadou Loving DO Unavailable Roger Jorgensen DIRECTOR OF MARKET INTELLIGENCE Unavailable Rinku Carrizales MD Unavailable [phone] Ezra Denney DIRECTOR OF MARKET INTELLIGENCE Primary Care Provider + Encounter Details Date Type Department Care Team (Latest Contact Info) Description 03/14/2020 Ancillary Orders Non-Invasive Cardiology [address] [place] [id number] Tony Miranda MD [address] [place] [address] [email or web address] Ischemic cardiomyopathy Social History Tobacco Use Types [...] Description 02/18/2023 Procedure Pass Non-Invasive Cardiology [address] [place] [address] 02/18/2023 Procedure Pass Non-Invasive Cardiology [address] [place] [address] 07/03/2023 Procedure Pass Non-Invasive Cardiology 22 [place] [address] 10/02/2023 Procedure Pass Non-Invasive Cardiology [address] [place] [address] 10/10/2023 Procedure Pass Non-Invasive Cardiology [address] [place] [address] 10/13/2023 Procedure Pass Non-Invasive Cardiology [address] [place] [address] 08/24/2024 Procedure Pass Echo [facility] [place] [address] 02/02/2025 1:00 PM EDT Appointment Non-Invasive [place] [address] Norman Schafer MD 22 [facility], [address] [address] 02/10/2025 8:30 AM EDT Ancillary Procedure [facility] [address] [place] [address] 3rd Floor, [address] [place] [address] Rosemarie Jaramillo DNP [address] [place] [address], [address] [address] 02/15/2025 1:00 PM EDT Office Visit [facility] Allergy [address], 4th Floor, [address] [place] [address] Radha Garica MD 55 [facility] [address] [place] [address] [email or web address] 05/03/2025 11:15 AM EST Ancillary Procedure [facility] [address] [place] [address] 3rd Floor, [address] [place] [address] Tony Sargent, DO 22 [facility] [address] [place] [address] 08/24/2025 11:15 AM EDT Appointment Echo Lab [address] [place] [address] Tony Sargent, DO 22 [facility] [address] [place] [address] [email or web address] documented as of this encounter Results * [...] device: Ischemic caridomyopathy Examination: Device type: ICD Slipper Maker: Medtronic Mode: VVI LRL/URL: 40/- bpm Thresholds, [...] for device: Ischemiccaridomyopathy Examination: Device type: ICD Slipper Maker: Medtronic Mode: VVI LRL/URL: 40/- bpm Thresholds, [...] disease documented in this encounter Care Teams Senior Asic Engineer Relationship Specialty Start Date End Date Ezra Denney NP [facility] [place] [address] PCP - General Family Medicine 07/07/19 Seymour Ferris CNP [address] [place] [address] [email or web address] Historical LMR Provider 02/20/1705/12/21 Tony Miranda MD [address] [place] [address] DrMichael [facility]. [address] [place] [address] [email or web address] Historical LMR Provider 02/20/17 Keyla Melton PA-C [address] [place] [address] [email or web address] Historical LMR Provider 02/20/17 05/12/21 Jamie Soot MD [address] [address] [email or web address] Historical LMR Provider 02/20/17 Mamadou Loving DO [address] [place] [address] Historical LMR Provider 02/20/17 Roger Jorgensen NP [address] [place] [address] [address] [place] [phone] Historical LMR Provider 02/20/17 2 Rinku Carrizales MD [address] [place] [address] [email or web address] Historical LMR Provider 02/20/17 documented as of this encounter Additional Source Comments The information contained in this document represents components of the legal health record. It is not the complete legal health record.[facility]
--- OUTSIDE RECORDS SUMMARY | 2025-01-26 15:05 | XMS_ITS | Encounter Summary ---
Author Organization [facility] Address [address] [place] [address] [address] [place] [address] Phone Care Team Providers Care Poleyard Supervisor Name Role Phone Tony Miranda MD Unavailable Jamie Soto MD Unavailable Rinku Carrizales MD Unavailable [phone] Ezra Denney ACADEMIC SUPPORT DIRECTOR Primary Care Provider + Reason for Visit * Reason Comments Medication Refill Encounter Details Date Type Department Care Team (Late st Contact Info) Description 08/29/2024 Refill Division of Immunologic, Inflammatory, and Infectious Neurological Disorders [address] [place] [address], 7th Floor, [address] [place] [address] Jordana Webb MD [address] [place] [address] Medication Refill Social History Tobacco Use Types [...] visit: 12/03/2023 Jordana Webb MD - Neurology [place] [address] > Requested f/u: Return in about 6 months (around 06/04/2024). Upcoming visit: None ACTIONS TAKEN BY Abimbola Oneil - Refill protocol not met - Asked front desk administrator staff to schedule appointment. Antiepileptic With Lab [...] Description 02/18/2023 Procedure Pass Non-Invasive Cardiology [address] [place] [address] 02/18/2023 Procedure Pass Non-Invasive Cardiology [address] [place] [address] 07/03/2023 Procedure Pass Non-Invasive Cardiology [address] [place] [address] 10/02/2023 Procedure Pass Non-Invasive Cardiology [address] [place] [address] 10/10/2023 Procedure Pass Non-Invasive Cardiology [address] [place] [address] 10/13/2023 Procedure Pass Non-Invasive Cardiology [address] [place] [address] 08/24/2024 Procedure Pass Echo Lab [address] [place] [address] 02/02/2025 1:00 PM EDT Appointment Non-Invasive Cardiology [address] [place] [address] Norman Schafer MD [address] [place] [address], [address] [place] [address] 02/10/2025 8:30 AM EDT Ancillary Procedure [facility] [address] [place] [address] 3rd Floor, [address] [place] [address] Rosemarie Jaramillo DNP [address] [place] [address], [address] [place] [address] 02/15/2025 1:00 PM EDT Office Visit [facility] Allergy [address], 4th Floor, [address] [place] [address] Radha Garcia MD [address] [place] [address] [address] [place] [address] [email or web address] [facility] 05/03/2025 11:15 AM EST Ancillary Procedure [facility] [address] [place] [address] Dr 3rd Floor, [address] [place] [address] Tony Sargent, DO 22 [facility] [address] [place] [address] 08/24/2025 11:15 AM EDT Appointment Echo Lab [address] [place] [address] Tony Sargent, DO [address] [place] [address] documented as of this encounter Visit Diagnoses Diagnosis Autoimmune encephalitis- Primary documented in this encounter Care Teams Poleyard Supervisor Relationship Specialty Start Date End Date Ezra Denney NP 1963 [facility] [place] [address] PCP - General Family Medicine 07/07/19 Tony Miranda MD [email or web address] Historical LMR Provider 02/20/17 Jamie Soto MD 22 [facility], [address] [place] [address] Historical LMR Provider 02/20/17 Rinku Carrizales MD [address] [address] [email or web address] Historical LMR Provider 10/19/17 documented as of this encounter Additional Source Comments The information contained in this document represents components of the legal health record. It is not the complete legal health record.[facility]
--- OUTSIDE RECORDS SUMMARY | 2025-01-26 15:05 | XMS_ITS | Encounter Summary ---
Author Organization [facility] Address [address] [place] [address] Phone Care Team Providers Care Creative Arts Therapist Name Role Phone Mamadou Loving DO Primary Care Provider [phone] Seymour Ferris CAREER CENTER ADVISOR Unavailable Tony Miranda MD Unavailable Keyla Melton PA-C Unavailable Jamie Soto MD Unavailable Mamadou Loving DO Unavailable Roger Jorgensen FIELD CASHIER Unavailable Rinku Carrizales MD Unavailable [phone] Ezra Denney FIELD CASHIER Primary Care Provider + Encounter Details Date Type Department Care Team (Late st Contact Info) Description 02/22/2017 Ancillary [facility] [address] [place] [address] Tony Miranda MD [address] [place] [address] [place] [address] [email or web address] Social History Tobacco Use Types Packs/Day Years [...] Description 02/18/2023 Procedure Pass [facility] [address] [place] [address] 02/18/2023 Procedure Pass Non-Invasive Cardiology [address] [place] [address] 07/03/2023 Procedure Pass Non-Invasive Cardiology [address] [place] [address] 10/02/2023 Procedure Pass Non-Invasive Cardiology [address] [place] [address] 10/10/2023 Procedure Pass Non-Invasive Cardiology [address] [place] [address] 10/13/2023 Procedure Pass Non-Invasive Cardiology [address] [place] [address] 08/24/2024 Procedure Pass Echo [facility] [place] [address] 02/02/2025 1:00 PM EDT Appointment Non-Invasive Cardiology [address] [place] [address] Norman Schafer MD 22 [facility], [address] [place] [address] 02/10/2025 8:30 AM EDT Ancillary Procedure [facility] [address] [place] [address] 3rd Floor, [address] [place] [address] Rosemarie Jaramillo DNP 22 [facility], [address] [place] [address] 02/15/2025 1:00 PM EDT Office Visit [facility] [address], 4th Floor, [address] [place] [address] Radha Garcai MD 55 [facility] [place] [place] [address] [email or web address] 05/03/2025 11:15 AM EST Ancillary Procedure [facility] [address] [place] [address] 3rd Floor, [address] [place] [address] Tony Sargent, DO [address] [place] [address] [place] [address] 08/24/2025 11:15 AM EDT Appointment Echo Lab [address] [place] [address] Tony Sargent DO 22 [facility] [address] [place] [address] [email or web address] documented as of this encounter Visit Diagnoses Not on filedocumented in this encounter Care Teams Creative Arts Therapist Relationship Specialty Start Date End Date Mamadou Loving DO 5 [place] [address] PCP - General 02/20/17 07/06/19 Ezra Denney, NACHO [address] [place] [address] PCP - General Family Medicine 07/07/19 Seymour Ferris, MIKE [address] [place] [address] [place] [address] Historical LMR Provider 02/20/1705/12/21 Tony Miranda MD [address] [place] [address] [place] [address] [email or web address] Historical LMR Provider 02/20/17 Keyla Melton PA-C 30 [place] [address] [email or web address] Historical LMR Provider 02/20/17 05/12/21 Jamie Soto MD 22 [facility] [address] [place] [address] [email or web address] Historical LMR Provider 02/20/17 Mamadou Loving DO [address] [place] [address] Historical LMR Provider 02/20/17 Roger Jorgensen NP [address] [place] [address] [address] [place] [address] [phone] Historical LMR Provider 02/20/17 2 Rinku Carrizales MD [address] [place] [address] [email or web address] Historical LMR Provider 02/20/17 documented as of this encounter Additional Source Comments The information contained in this document represents components of the legal health record. It is not the complete legal health record.[facility]
--- OUTSIDE RECORDS SUMMARY | 2025-01-26 15:05 | XMS_ITS | Encounter Summary ---
Author Organization [facility] Address [address] [place] [address] Phone Care Team Providers Care Vice President And Portfolio Manager Name Role Phone Tony Miranda MD Unavailable Jamie Soto MD Unavailable Rinku Carrizales MD Unavailable [phone] Ezra Denney NP Primary Care Provider + Encounter Details Date Type Department Care Team (Late st Contact Info) Description 04/16/2024 Transcribe Orders [facility] Specimen Processing 30 [place] [address] Ezra Denney, NACHO [facility] [place] [address] Social History Tobacco Use Types Packs/Day Years [...] Description 02/18/2023 Procedure Pass Non-Invasive Cardiology [address] [place] [address] 02/18/2023 Procedure Pass Non-Invasive Cardiology [address] [place] [address] 07/03/2023 Procedure Pass Non-Invasive Cardiology 22 [place] [address] 10/02/2023 Procedure Pass Non-Invasive Cardiology [address] [place] [address] 10/10/2023 Procedure Pass Non-Invasive Cardiology [address] [place] [address] 10/13/2023 Procedure Pass Non-Invasive Cardiology [address] [place] [address] 08/24/2024 Procedure Pass Echo Lab [place] [address] [place] [address] 02/02/2025 1:00 PM EDT Appointment Non-Invasive Cardiology [address] [place] [address] Norman Schafer MD [address] [place] [address], [address] [address] 02/10/2025 8:30 AM EDT Ancillary Procedure [facility] [address] [place] [address] 3rd Floor, [address] [place] [address] Rosemarie Jaramillo DNP [address] [place] [address], [address] [address] 02/15/2025 1:00 PM EDT Office Visit [facility] [place] 55 [facility], 4th Floor, [address] [place] [address] Radha Garcia MD 55 [facility] [address] [place] [address] [email or web address] [facility] 05/03/2025 11:15 AM EST Ancillary Procedure [facility] [address] [place] [address] 3rd Floor, [address] [place] [address] Tony Sargent, DO 22 [facility] [address] [place] [address] [email or web address] 08/24/2025 11:15 AM EDT Appointment Echo Lab [address] [place] [address] Tony Sargent, DO [address] [place] [address] [email or web address] documented as of this encounter Visit Diagnoses Not on filedocumented in this encounter Care Teams Vice President And Portfolio Manager Relationship Specialty Start Date End Date Ezra Denney NP [address] [facility] [place] [address] PCP - General Family Medicine 07/07/19 Tony Miranda MD [email or web address] Historical LMR Provider 02/20/17 Jamie Soto MD [address] [place] [address], [address] [address] [email or web address] Historical LMR Provider 02/20/17 Rinku Carrizales MD [address] [place] [address] [email or web address] Historical LMR Provider 02/20/17 documented as of this encounter Additional Source Comments The information contained in this document represents components of the legal health record. It is not the complete legal health record.[facility]
--- OUTSIDE RECORDS SUMMARY | 2025-01-26 15:05 | XMS_ITS | Encounter Summary ---
Author Organization [facility] Address [address] [place] [address] Phone Care Team Providers Care Embalmer Assistant Name Role Phone Mamadou Loving DO Primary Care Provider [phone] Seymour Ferris CIVIL DRAFTSMAN Unavailable [phone] Tony Miranda MD Unavailable Keyla Melton PA-C Unavailable Jamie Soto MD Unavailable [phone] Mamadou Loving DO Unavailable Roger Jorgensen SOUND PRINTER Unavailable [phone] Rinku Carrizales MD Unavailable [phone] Ezra Denney NP Primary Care Provider + Encounter Details Date Type Department Care Team (Late st Contact Info) Description 12/02/2017 Procedure Pass [facility] Ct [facility] - [facility] 30 [place], [place] [id number] Social History Tobacco Use Types Packs/Day Years [...] Description 02/18/2023 Procedure Pass Non-Invasive Cardiology [address] [place] [address] 02/18/2023 Procedure Pass Non-Invasive Cardiology [address] [place] [address] 07/03/2023 Procedure Pass Non-Invasive Cardiology 22 [place] [address] 10/02/2023 Procedure Pass Non-Invasive Cardiology [address] [place] [address] 10/10/2023 Procedure Pass Non-Invasive Cardiology [address] [place] [address] 10/13/2023 Procedure Pass Non-Invasive Cardiology [address] [place] [address] 08/24/2024 Procedure Pass [place] [address] 02/02/2025 1:00 PM EDT Appointment Non-Invasive Cardiology [address] [place] [address] Norman Schafer MD [address] [place] [address], [address] [place] [address] 02/10/2025 8:30 AM EDT Ancillary Procedure [facility] [address] [place] [address] 3rd Floor, [address] [place] [address] Rosemarie Jaramillo DNP [address] [place] [address], [address] [place] [address] 02/15/2025 1:00 PM EDT Office Visit [facility] Allergy [address], 4th Floor, [address] [place] [address] Radha Garcia MD [address] [place] [address] [address] [place] [address] [email or web address] [email or web address] 05/03/2025 11:15 AM EST Ancillary Procedure [facility] [address] 3rd Floor, [address] [place] [address] Tony Sargent, DO [address] [address] 08/24/2025 11:15 AM EDT Appointment Echo Lab [address] [place] [address] Tony Sargent, DO 22 [facility] [address] [place] [address] documented as of this encounter Visit Diagnoses Not on filedocumented in this encounter Care Teams Embalmer Assistant Relationship Specialty Start Date End Date Mamadou Loving DO [address] [place] [address] PCP - General 02/20/17 07/06/19 Ezra Denney, NACHO [address] [place] [address] PCP - General Family Medicine 07/07/19 Seymour Ferris, MIKE [address] [place] [address] [place] [address] [email or web address] Historical LMR Provider 02/20/1705/12/21 Tony Miranda MD [address] [place] [address] [email or web address] Historical LMR Provider 02/20/17 Keyla Melton PA-C 30 [place] [address] [email or web address] Historical LMR Provider 02/20/17 05/12/21 Jamie Soto MD [address] [place] [address] [address] [place] [address] [email or web address] Historical LMR Provider 02/20/17 Mamadou Loving DO [address] [place] [address] Historical LMR Provider 02/20/17 Roger Jorgensen NP [address] [place] [address] [address] [place] [phone] Historical LMR Provider 02/20/17 2 Rinku Carrizales MD [address] [place] [address] [email or web address] Historical LMR Provider 02/20/17 documented as of this encounter Additional Source Comments The information contained in this document represents components of the legal health record. It is not the complete legal health record.[facility]
--- OUTSIDE RECORDS SUMMARY | 2025-01-26 15:05 | XMS_ITS | Encounter Summary ---
Author Organization [facility] Address [address] [place] [address] [place] [address] Phone Care Team Providers Care Shell Sorter Name Role Phone Mamadou Loving DO Primary Care Provider [phone] Seymour Ferris INSTALLATION MANAGER Unavailable Tony Miranda MD Unavailable Keyla Melton PA-C Unavailable [phone] Jamie Soto MD Unavailable [phone] Mamadou Loving DO Unavailable Roger Jorgensen MECHANICAL ENGINEERING DRAFTSPERSON Unavailable [phone] Rinku Carrizales MD Unavailable [phone] Ezra Denney NP Primary Care Provider + Encounter Details Date Type Department Care Team (Latest Contact Info) Description 02/22/2017 Ancillary Orders [facility] [address] 3rd Floor, [address] [place], [place] [phone] Rinku Carrizales MD [address] [place] [address] [email or web address] Diagnosis unknown Social History Tobacco Use [...] Description 02/18/2023 Procedure Pass Non-Invasive Cardiology [address] [place] [address] 02/18/2023 Procedure Pass Non-Invasive Cardiology [address] [place] [address] 07/03/2023 Procedure Pass Non-Invasive Cardiology [address] [place] [address] 10/02/2023 Procedure Pass Non-Invasive Cardiology [address] [place] [address] 10/10/2023 Procedure Pass Non-Invasive Cardiology [address] [place] [address] 10/13/2023 Procedure Pass Non-Invasive Cardiology [address] [place] [address] 08/24/2024 Procedure Pass Echo Lab [place] [address] 02/02/2025 1:00 PM EDT Appointment Non-Invasive Cardiology [address] [place] [address] Norman Schafer MD 22 [facility], [address] [place] [address] 02/10/2025 8:30 AM EDT Ancillary Procedure [facility] [address] [place] [address] 3rd Floor, [address] [place] [address] Rosemarie Jaramillo DNP 22 [facility], [address] [place] [address] 02/15/2025 1:00 PM EDT Office Visit [facility] Allergy [address], 4th Floor, [address] [place] [address] Radha Garcia MD 55 [facility] [place] [address] [place] [address] [email or web address] 05/03/2025 11:15 AM EST Ancillary Procedure [facility] [address] 3rd Floor, [address] [place] [address] Tony Sargent, DO [address] [place] [address] [place] [address] 08/24/2025 11:15 AM EDT Appointment Echo Lab [address] [place] [address] Tony Sargent DO [address] [place] [address] [place] [address] [email or web address] documented as of this encounter Visit Diagnoses Diagnosis Diagnosis unknown documented in this encounter Care Teams Shell Sorter Relationship Specialty Start Date End Date Mamadou Loving DO 5 [place] [address] PCP - General 02/20/17 07/06/19 Ezra Denney, NACHO [address] [facility] [place] [address] PCP - General Family Medicine 07/07/19 Seymour Ferris CNP [address] [place] [address] [place] [address] Historical LMR Provider 02/20/1705/12/21 Tony Miranda MD [address] [place] [address] [place] [address] [email or web address] Historical LMR Provider 02/20/17 Keyla Melton PA-C 30 [place] [address] [email or web address] Historical LMR Provider 02/20/17 05/12/21 Jamie Soto MD 22 [facility] [address] [place] [address] [email or web address] Historical LMR Provider 02/20/17 Mamadou Loving DO [address] [place] [address] Historical LMR Provider 02/20/17 Roger Jorgensen NP [address] [place] [address] [address] [place] [phone] Historical LMR Provider 02/20/17 2 Rinku Carrizales MD [address] [place] [address] [email or web address] Historical LMR Provider 02/20/17 documented as of this encounter Additional Source Comments The information contained in this document represents components of the legal health record. It is not the complete legal health record.[facility]
--- OUTSIDE RECORDS SUMMARY | 2025-01-26 15:05 | XMS_ITS | Encounter Summary ---
Author Organization [facility] Address [address] [place] [address] Phone Care Team Providers Care Corporate Strategy Analyst Name Role Phone Mamadou Loving DO Primary Care Provider [phone] Seymour Ferris HANSARD REPORTER Unavailable Tony Miranda MD Unavailable Keyla Melton PA-C Unavailable Jamie Soto MD Unavailable [phone] Mamadou Loving DO Unavailable Rgoer Jorgensen SUBCONTRACT ADMINISTRATOR Unavailable [phone] Rinku Carrizales MD Unavailable [phone] Ezra Denney NP Primary Care Provider + Encounter Details Date Type Department Care Team (Late st Contact Info) Description 07/09/2018 Ancillary [facility] [address] [place] [address] Tony Miranda MD [address] [place] [address] [place] [address] [email or web address] Social History Tobacco Use Types Packs/Day Years [...] Pass Non-Invasive Cardiology [address] [place] [address] 02/18/2023 Procedure Pass Non-Invasive Cardiology [address] [place] [address] 07/03/2023 Procedure Pass Non-Invasive Cardiology [address] [place] [address] 10/02/2023 Procedure Pass Non-Invasive Cardiology [address] [place] [address] 10/10/2023 Procedure Pass Non-Invasive Cardiology [address] [place] [address] 10/13/2023 Procedure Pass Non-Invasive Cardiology [address] [place] [address] 08/24/2024 Procedure [place] [address] 02/02/2025 1:00 PM EDT Appointment Non-Invasive Cardiology [address] [place] [address] Norman Schafer MD 22 [facility], [address] [place] [address] 02/10/2025 8:30 AM EDT Ancillary Procedure [facility] [address] 3rd Floor, [address] [place] [address] Rosemarie Jaramillo DNP [address] [place] [address], [address] [place] [address] 02/15/2025 1:00 PM EDT Office Visit [facility] [address], 4th Floor, [address] [place] [address] Radha Garcia MD 55 [facility] [address] [place] [address] [email or web address] 05/03/2025 11:15 AM EST Ancillary Procedure [facility] [address] [place] [address] Dr 3rd Floor, [address] [place] [address] Tony Sargent, DO [address] [place] [address] [place] [address] 08/24/2025 11:15 AM EDT Appointment Echo Lab [address] [place] [address] Tony Sargent, DO [address] [place] [address] [place] [address] documented as of this encounter Visit Diagnoses Not on filedocumented in this encounter Care Teams Corporate Strategy Analyst Relationship Specialty Start Date End Date Mamadou Loving DO [address] [place] [address] PCP - General 02/20/17 07/06/19 Ezra Denney, NACHO [address] [facility] [place] [address] PCP - General Family Medicine 07/07/19 Seymour Ferris, MIKE [address] [place] [address] Historical LMR Provider 02/20/1705/12/21 Tony Miranda MD [address] [place] [address] [place] [address] [email or web address] Historical LMR Provider 02/20/17 Keyla Melton PA-C 30 [place] [address] [email or web address] Historical LMR Provider 02/20/17 05/12/21 Jamie Soto MD 22 [facility] [address] [place] [address] [email or web address] Historical LMR Provider 02/20/17 Mamadou Loving DO [address] [place] [address] Historical LMR Provider 02/20/17 Roger Jorgensen NP [address] [place] [address] [address] [place] [phone] Historical LMR Provider 02/20/17 2 Rinku Carrizales MD [address] [place] [address] [email or web address] Historical LMR Provider 02/20/17 documented as of this encounter Additional Source Comments The information contained in this document represents components of the legal health record. It is not the complete legal health record.[facility]
--- OUTSIDE RECORDS SUMMARY | 2025-01-26 15:05 | XMS_ITS | Encounter Summary ---
Author Organization [facility] Address [facility] [employer] [place] [facility] [address] [place] [address] Phone Care Team Providers Care Basting Machine Operator Name Role Phone Tony Miranda MD Unavailable Jamie Soto MD Unavailable Rinku Carrizales MD Unavailable [phone] Ezra Denney EXHIBITIONS AND COLLECTIONS MANAGER Primary Care Provider + Encounter Details Date Type Department Care Team (Late st Contact Info) Description 08/12/2022 Ancillary Orders [facility] 3rd Floor, [address] [place], [place] [phone] Arthur Casarez MD [address] [place], [place] [phone] [email or web address] Social History Tobacco Use [...] Pass Non-Invasive Cardiology [address] [place] [address] 02/18/2023 Procedure Pass Non-Invasive Cardiology [address] [place] [address] 07/03/2023 Procedure Pass Non-Invasive Cardiology [address] [place] [address] 10/02/2023 Procedure Pass Non-Invasive Cardiology [address] [place] [address] 10/10/2023 Procedure Pass Non-Invasive Cardiology [address] [place] [address] 10/13/2023 Procedure Pass Non-Invasive Cardiology [address] [place] [address] 08/24/2024 Procedure Pass Echo Lab [address] [place] [address] 02/02/2025 1:00 PM EDT Appointment Non-Invasive Cardiology [address] [place] [address] Norman Schafer MD [address] [place] [address], [address] [place] [address] 02/10/2025 8:30 AM EDT Ancillary Procedure [facility] [address] [place] [address] 3rd Floor, [address] [place] [address] Rosemarie Jaramillo DNP [address] [place] [address], [address] [place] [address] 02/15/2025 1:00 PM EDT Office Visit [facility] [address], 4th Floor, [address] [place] [address] Radha Garcia MD [address] [place] [address] [address] [place] [address] [email or web address] 05/03/2025 11:15 AM EST Ancillary Procedure [facility] [address] [place] [address] Dr 3rd Floor, [address] [place] [address] Tony Sargent, DO 22 [facility] [address] [place] [address] 08/24/2025 11:15 AM EDT Appointment Echo Lab [address] [place] [address] Tony Sargent, DO 22 [facility] [address] [place] [address] [email or web address] documented as of this encounter Visit Diagnoses Not on filedocumented in this encounter Care Teams Basting Machine Operator Relationship Specialty Start Date End Date Ezra Denney NP [address] [facility] [place] [address] PCP - General Family Medicine 07/07/19 Tony Miranda MD [email or web address] Historical LMR Provider 02/20/17 Jamie Soto MD [address] [place] [address], [address] [place] [address] [email or web address] Historical LMR Provider 02/20/17 Rinku Carrizales MD [address] [address] [email or web address] Historical LMR Provider 02/20/17 documented as of this encounter Additional Source Comments The information contained in this document represents components of the legal health record. It is not the complete legal health record.[facility]
--- OUTSIDE RECORDS SUMMARY | 2025-01-26 15:05 | XMS_ITS | Encounter Summary ---
Author Organization [facility] Address [address] [place] [address] Phone Care Team Providers Care Ramp Manager Name Role Phone Tony Miranda MD Unavailable Jamie Soto MD Unavailable Rinku Carrizales MD Unavailable [phone] Ezra Denney DRUM STENCILER Primary Care Provider + Encounter Details Date Type Department Care Team (Late st Contact Info) Description 02/14/2023 Procedure Pass Non-Invasive Cardiology [address] [place] [address] Social History Tobacco Use Types Packs/Day Years [...] Description 02/18/2023 Procedure Pass Non-Invasive Cardiology [address] [place] [address] 02/18/2023 Procedure Pass Non-Invasive Cardiology [address] [place] [address] 07/03/2023 Procedure Pass Non-Invasive Cardiology [address] [place] [address] 10/02/2023 Procedure Pass Non-Invasive Cardiology [address] [place] [address] 10/10/2023 Procedure Pass Non-Invasive Cardiology [address] [place] [address] 10/13/2023 Procedure Pass Non-Invasive Cardiology [address] [place] [address] 08/24/2024 Procedure Pass Echo Lab [address] [place] [address] 02/02/2025 1:00 PM EDT Appointment Non-Invasive Cardiology [address] [place] [address] Norman Schafer MD [address] [place] [address], [address] [place] [address] 02/10/2025 8:30 AM EDT Ancillary Procedure [facility] [address] [place] [address] 3rd Floor, [address] [place] [address] Rosemarie Jaramillo DNP [address] [place] [address], [address] [place] [address] 02/15/2025 1:00 PM EDT Office Visit [facility] Allergy [address], 4th Floor, [address] [place] [address] Radha Garcia MD [address] [place] [address] [address] [place] [address] [email or web address] 05/03/2025 11:15 AM EST Ancillary Procedure [facility] [address] [place] [address] Dr 3rd Floor, [address] [place] [address] Tony Sargent, DO 22 [facility] [address] [place] [address] 08/24/2025 11:15 AM EDT Appointment Echo Lab [address] [place] [address] Tony Sargent, DO [address] [place] [address] [place] [address] [email or web address] documented as of this encounter Visit Diagnoses Not on filedocumented in this encounter Care Teams Ramp Manager Relationship Specialty Start Date End Date Ezra Denney NP [address] [place] [address] PCP - General Family Medicine 07/07/19 Tony Miranda MD [email or web address] Historical LMR Provider 02/20/17 Jamie Soto MD [address] [place] [address], [address] [place] [address] [email or web address] Historical LMR Provider 02/20/17 Rinku Carrizales MD [address] [place] [address] [email or web address] Historical LMR Provider 02/20/17 documented as of this encounter Additional Source Comments The information contained in this document represents components of the legal health record. It is not the complete legal health record.[facility]
--- OUTSIDE RECORDS SUMMARY | 2025-01-26 15:05 | XMS_ITS | Encounter Summary ---
Author Organization [facility] Address [address] [facility] [address] [place] [address] Phone Care Team Providers Care Bunker Worker Name Role Phone Tony Miranda MD Unavailable Jamie Soto MD Unavailable Rinku Carrizales MD Unavailable [phone] Ezra Denney CLIP COATER Primary Care Provider + Reason for Referral * MRI/CAT Scan - Closed Specialty Diagnoses / Procedures Referred By Navneet t Referred To Contact Radiology Diagnoses Chest pain on breathing Procedures NC Myocardial Perfusion Pharmacologic Stress Multiple NC Myocardial Perfusion Exercise Multiple Tony Sargent DO Phone: tel: fax: [email or web address] Referral ID Status Reason Start Date Expiration Date Visits Re quested Visits Authorized [id number] Closed 12/10/2023 1 1 Encounter Details Date Type Department Care Team (Latest Contact Info) Description 01/12/2024 Ancillary Orders [facility] [address] [facility] 3rd Floor, [address] [place], [place] [phone] Tony Sargent DO 22 [facility] [address] [place], [place] [phone] [email or web address] Chest pain on breathing (Primary Dx); Ischemic [...] Description 02/18/2023 Procedure Pass Non-Invasive Cardiology [address] [place] [address] 02/18/2023 Procedure Pass Non-Invasive Cardiology [address] [place] [address] 07/03/2023 Procedure Pass Non-Invasive Cardiology [address] [place] [address] 10/02/2023 Procedure Pass Non-Invasive Cardiology [address] [place] [address] 10/10/2023 Procedure Pass Non-Invasive Cardiology [address] [place] [address] 10/13/2023 Procedure Pass Non-Invasive Cardiology [address] [place] [address] 08/24/2024 Procedure Pass [place] [address] 02/02/2025 1:00 PM EDT Appointment Non-Invasive Cardiology [address] [place] [address] Norman Schafer MD [address] [facility], [address] [place] [address] [email or web address] 02/10/2025 8:30 AM EDT Ancillary Procedure [facility] [address] [place] [address] 3rd Floor, [address] [place] [address] Rosemarie Jaramillo DNP [address] [place] [address], [address] [place] [address] 02/15/2025 1:00 PM EDT Office Visit [facility] Allergy [address], 4th Floor, [address] [place] [address] Radha Garcia MD [address] [place] [address] [address] [place] [address] [email or web address] 05/03/2025 11:15 AM EST Ancillary Procedure [facility] [address] 3rd [facility], [address] [place] [address] Tony Sargent, DO [address] [place] [address] 08/24/2025 11:15 AM EDT Appointment Echo Lab [address] [place] [address] Tony Sargent, DO [address] [place] [address] [place] [address] documented as of this encounter Results * NC Myocardial Perfusion Pharmacologic Stress Multiple (01/12/2024 1:42 PM EDT) [facility] Max Predicted Heart Rate 145 bpm Stress/rest [...] in SPECT format, reconstructed tomographically and compared [id number]-[id number] in short axis, horizontal long axis and [...] of Tc99m Sestamibi by Jose Flanagan, the nuclear reactor operator. 1. EKG - Baseline EKG showed sinus [...] communicated to the ordering physician, Dr. Sargent. us Tony Sargent DO CV NM CARDIAC Final Result documented in this encounter Visit Diagnoses Diagnosis Chest pain on breathing- Primary Painful respiration Chest pain on breathing- Primary Painful respiration Ischemic cardiomyopathy Other specified forms of chronic ischemic heart disease Paroxysmal atrial fibrillation Atrial fibrillation Acute on chronic combined systolic and diastolic congestive heart failure Mixed hyperlipidemia documented in this encounter Care Teams Bunker Worker Relationship Specialty Start Date End Date Ezra Denney NP [address] [place] [address] PCP - General Family Medicine 07/07/19 Tony Miranda MD [email or web address] Historical LMR Provider 02/20/17 Jamie Soto MD [address] [place] [address], [address] [place] [address] [email or web address] Historical LMR Provider 02/20/17 Rinku Carrizales MD [address] [place] [address] [email or web address] Historical LMR Provider 10/19/17 documented as of this encounter Additional Source Comments The information contained in this document represents components of the legal health record. It is not the complete legal health record.[facility]
--- OUTSIDE RECORDS SUMMARY | 2025-01-26 15:05 | XMS_ITS | Encounter Summary ---
Author Organization [facility] Address [address] [place] [address] Phone Care Team Providers Care Equine Pharmacology Technician Name Role Phone Tony Miranda MD Unavailable Jamie Soto MD Unavailable Rinku Carrizales MD Unavailable [phone] Ezra Denney RESIDENTIAL DESIGNER Primary Care Provider + Encounter Details Date Type Department Care Team (Latest Contact Info) Description 08/12/2022 Ancillary Orders Non-Invasive Cardiology [address] [place], [place] [phone] Arthur Casarez MD [address] [place], [place] [id number] [email or web address] Ischemic cardiomyopathy Social History Tobacco [...] Description 02/18/2023 Procedure Pass Non-Invasive Cardiology [address] [place] [address] 02/18/2023 Procedure Pass Non-Invasive Cardiology [address] [place] [address] 07/03/2023 Procedure Pass Non-Invasive Cardiology [address] [place] [address] 10/02/2023 Procedure Pass Non-Invasive Cardiology [address] [place] [address] 10/10/2023 Procedure Pass Non-Invasive Cardiology [address] [place] [address] 10/13/2023 Procedure Pass Non-Invasive Cardiology [address] [place] [address] 08/24/2024 Procedure Pass Echo Lab [place] [address] 02/02/2025 1:00 PM EDT Appointment Non-Invasive Cardiology [address] [place] [address] Norman Schafer MD [address] [place] [address], [address] [place] [address] 02/10/2025 8:30 AM EDT Ancillary Procedure [facility] [address] [place] [address] Dr 3rd Floor, [address] [place] [address] Rosemarie Jaramillo DNP [address] [place] [address], [address] [place] [address] 02/15/2025 1:00 PM EDT Office Visit [facility] Allergy [place] [address] [facility], 4th Floor, [address] [place] [address] Radha Garcia MD [address] [facility] [address] [place] [address] [email or web address] COUNTS INCLUDE 234 BEDS AT THE [facility] 05/03/2025 11:15 AM EST Ancillary Procedure [facility] [address] [place] [address] 3rd Floor, [address] [place] [address] Tony Sargent, DO [address] [place] [address] [place] [address] [email or web address] 08/24/2025 11:15 AM EDT Appointment Echo Lab [address] [place] [address] Tony Sargent, DO [address] [facility] [address] [place] [address] [email or web address] documented as of this encounter [...] device: Ischemic cardiomyopathy Examination: Device type: ICD Correctional Cook: Medtronic Mode: VVI LRL/URL: 40/- bpm Thresholds, impedances, and sensing stable. High V rates: 0 Ventricular pacin.1% Battery: 8 yrs Thoracic impedance: Recent low impedance, seen in office by Seymour on 08/05, patient endorsed only occasional SOB, will review w/ Katiuskaa. Additional comments: Device functioning appropriately. Normal device function. Patient to follow-up for continued monitoring every 3 months. Report prepared by Iker Chan RN Procedure Note Tony Sargent, - 08/13/2022 Images from the original note were not included. Reason for appointment: Remote ICD interrogation HPI: Routine 3 month remote ICD interrogation. No device relatedcomplaints. Indication for device: Ischemic cardiomyopathy Examination: Device type: ICD Correctional Cook: Medtronic Mode: VVI LRL/URL: 40/- bpm Thresholds, impedances, and sensing stable. High V rates: 0 Ventricular pacin.1% Battery: 8 yrs Thoracic impedance: Recent low impedance, seen in office by Seymour on08/05, patient endorsed only occasional SOB, will review w/ Seymour. Additional comments: Device functioning appropriately. Normal device [...] disease documented in this encounter Care Teams Equine Pharmacology Technician Relationship Specialty Start Date End Date Ezra Denney NP [address] [place] [address] PCP - General Family Medicine 07/07/19 Tony Miranda MD [email or web address] Historical LMR Provider 02/20/17 Jamie Soto MD [address] [place] [address], [address] [address] [email or web address] Historical LMR Provider 02/20/17 Rinku Carrizales MD [address] [place] [address] [email or web address] Historical LMR Provider 02/20/17 documented as of this encounter Additional Source Comments The information contained in this document represents components of the legal health record. It is not the complete legal health record.[facility]
--- OUTSIDE RECORDS SUMMARY | 2025-01-26 15:05 | XMS_ITS | Clinical Summary ---
Author Organization [facility] Address [address] [place] [address] Care Team Providers Care Director Translational Name Role Phone Mamadou Loving Primary Care Provider [phone] Zackary Martinez MD Unavailable Allergies Active Allergy [...] - 1-dose 75+ series) 2023 Influenza Vaccine 12/03/2024 COVID-19 Vaccine ( - 2023-2 5 season) 2025 Hepatitis B Vaccines Aged Out No long er eligible based on patient's age to complete this topic Medical Devices Implanted Type Area Chartered Wealth Manager Device Identifier Shelf Expiration Date Model / Serial / Lot Afx2 Bifurcated Endograft Implanted:Qty: 1 on 04/11/2017 by Marco Lopez MD at [facility] [employer] 02/05/2018 [id number] / [id number] / Description:CAPPED PRICING $ 14,500.00 Afx Arteaga Proximal Endograft Implanted:Qty: 1 on 04/11/2017 by Marco Lopez MD at [facility] [employer] 01/28/2020 [id number]/C75- O 20V / [id number] / Description:CAPPED PRICING $ 14,500.00. THIS ITEM NOT CHARGEABLE. 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 - [id number] Implanted:Qty: 1 on 04/11/2017 by Marco Lopez MD at [facility] [employer] S17-45 / / [id number] Insurance MEDICARE PART A & B [facility] Advance Directives * Full Code (Latest Code Status on File) Date Activated Date Inactivated Comments 04/11/2017 1:01 PM * Full Code Date Activated Date Inactivated Comments 04/11/2017 7:06 AM 04/11/2017 1:01 PM Care Teams Director Translational Relationship Specialty Start Date End Date Mamadou Loving [address] [place] [address] [place] [address] PCP - General Medicine Hospitalist 03/26/17 Zackary Martinez MD [address] [place] [address] [place] [address] Cardiovascular Disease 04/03/17
--- OUTSIDE RECORDS SUMMARY | 2025-01-26 15:05 | XMS_ITS | Encounter Summary ---
Author Organization [facility] Address [address] [place] [address] Phone Care Team Providers Care Power Ballast Machine Operator Name Role Phone Mamadou Loving DO Primary Care Provider [phone] Seymour Ferris TNT POWDER WORKER Unavailable Tony Miranda MD Unavailable Keyla Melton PA-C Unavailable [phone] Jamie Soto MD Unavailable Mamadou Loving DO Unavailable Roger Jorgensen DOCUMENT RESTORER Unavailable Rinku Carrizales MD Unavailable [phone] Ezra Denney NP Primary Care Provider + Encounter Details Date Type Department Care Team (Late st Contact Info) Description 12/02/2017 Procedure Pass [facility], Ct Scan - [facility] [address] [place], [place] [phone] Social History Tobacco Use Types Packs/Day Years [...] Pass Non-Invasive Cardiology [address] [place] [address] 02/18/2023 Procedure Pass Non-Invasive Cardiology [address] [place] [address] 07/03/2023 Procedure Pass Non-Invasive Cardiology [address] [place] [address] 10/02/2023 Procedure Pass Non-Invasive Cardiology [address] [place] [address] 10/10/2023 Procedure Pass Non-Invasive Cardiology [address] [place] [address] 10/13/2023 Procedure Pass Non-Invasive Cardiology [address] [place] [address] 08/24/2024 Procedure Pass [place] [address] 02/02/2025 1:00 PM EDT Appointment Non-Invasive Cardiology [address] [place] [address] Norman Schafer MD [address] [place] [address], [address] [place] [address] 02/10/2025 8:30 AM EDT Ancillary Procedure [facility] [address] [place] [address] 3rd Floor, [address] [place] [address] Rosemarie Jaramillo DNP [address] [place] [address], [address] [place] [address] 02/15/2025 1:00 PM EDT Office Visit [facility] Allergy [address], 4th Floor, [address] [place] [address] Radha Garcia MD [address] [place] [address] [address] [place] [address] [email or web address] 05/03/2025 11:15 AM EST Ancillary Procedure [facility] [address] [place] 3rd Floor, [address] [place] [address] Tony Sargent, DO [address] [address] 08/24/2025 11:15 AM EDT Appointment Echo Lab [address] [place] [address] Tony Sargent, DO 22 [facility] [address] [place] [address] documented as of this encounter Visit Diagnoses Not on filedocumented in this encounter Care Teams Power Ballast Machine Operator Relationship Specialty Start Date End Date Mamadou Loving DO [address] [place] [address] PCP - General 02/20/17 07/06/19 Ezra Denney, NACHO [address] [place] [address] PCP - General Family Medicine 07/07/19 Seymour Ferris, MIKE [address] [place] [address] [place] [address] [email or web address] Historical LMR Provider 02/20/1705/12/21 Tony Miranda MD [address] [place] [address] [email or web address] Historical LMR Provider 02/20/17 Keyla Melton PA-C [address] [place] [address] [email or web address] Historical LMR Provider 02/20/17 05/12/21 Jamie Soto MD [address] [place] [address] [address] [place] [address] [email or web address] Historical LMR Provider 02/20/17 Mamadou Loving DO [address] [place] [address] Historical LMR Provider 02/20/17 Roger Jorgensen NP [address] [place] [address] [address] [place] [phone] Historical LMR Provider 02/20/17 2 Rinku Carrizales MD [address] [place] [address] [email or web address] Historical LMR Provider 02/20/17 documented as of this encounter Additional Source Comments The information contained in this document represents components of the legal health record. It is not the complete legal health record.[facility]
--- OUTSIDE RECORDS SUMMARY | 2025-01-26 15:06 | XMS_ITS | Encounter Summary ---
Author Organization [facility] Address [address] [place] [address] [place] [address] Phone Care Team Providers Care Supervisor Logging Name Role Phone Mamadou Loving DO Primary Care Provider Seymour Ferris DIGITAL SALES DIRECTOR Unavailable [phone] Tony Miranda MD Unavailable [phone] Keyla Melton PA-C Unavailable Jamie Soto MD Unavailable [phone] Mamadou Loving DO Unavailable Roger Jorgensen SENIOR OPERATOR Unavailable Rinku Carrizales MD Unavailable [phone] Ezra Denney NP Primary Care Provider + Encounter Details Date Type Department Care Team (Late st Contact Info) Description 09/04/2018 Procedure Pass [facility] Cardiac Registered Nurse Cardiovascular [facility] [address] [facility], [address] 9, [address] [place] [address] Social History Tobacco Use Types [...] Description 02/18/2023 Procedure Pass Non-Invasive Cardiology [address] [place] [address] 02/18/2023 Procedure Pass Non-Invasive Cardiology [address] [place] [address] 07/03/2023 Procedure Pass Non-Invasive Cardiology [address] [place] [address] 10/02/2023 Procedure Pass Non-Invasive Cardiology [address] [place] [address] 10/10/2023 Procedure Pass Non-Invasive Cardiology [address] [place] [address] 10/13/2023 Procedure Pass Non-Invasive Cardiology [address] [place] [address] 08/24/2024 Procedure Pass Echo Lab [place] [address] 02/02/2025 1:00 PM EDT Appointment Non-Invasive Cardiology [address] [place] [address] Norman Schafer MD 22 [facility], [address] [place] [address] 02/10/2025 8:30 AM EDT Ancillary Procedure [facility] [address] [place] [address] 3rd Floor, [address] [place] [address] Rosemarie Jaramillo DNP [address] [facility], [address] [place] [address] 02/15/2025 1:00 PM EDT Office Visit [facility] Allergy [address], 4th Floor, [address] [place] [address] Radha Garcia MD [address] [facility] [place] [address] [place] [address] [email or web address] 05/03/2025 11:15 AM EST Ancillary Procedure [facility] [address] [place] [address] 3rd Floor, [address] [place] [address] Tony Sargent, DO [address] [place] [address] [place] [address] 08/24/2025 11:15 AM EDT Appointment Echo Lab [address] [place] [address] Tony Sargent DO 22 [facility] [address] [place] [address] [email or web address] documented as of this encounter Visit Diagnoses Not on filedocumented in this encounter Care Teams Supervisor Logging Relationship Specialty Start Date End Date Mamadou Loving DO [address] [place] [address] PCP - General 02/20/17 07/06/19 Ezra Denney, NACHO [address] [facility] [place] [address] PCP - General Family Medicine 07/07/19 Seymour Ferris, MIKE [address] [place] [address] Historical LMR Provider 02/20/1705/12/21 Tony Miranda MD [address] [place] [address] [email or web address] Historical LMR Provider 02/20/17 Keyla Melton PA-C [address] [place] [address] [email or web address] Historical LMR Provider 02/20/17 05/12/21 Jamie Soto MD 22 [facility] [address] [place] [address] [email or web address] Historical LMR Provider 02/20/17 Mamadou Loving DO [address] [place] [address] Historical LMR Provider 02/20/17 Roger Jorgensen NP [address] [place] [address] [address] [place] [phone] Historical LMR Provider 02/20/17 2 Rinku Carrizales MD [address] [place] [address] [email or web address] Historical LMR Provider 02/20/17 documented as of this encounter Additional Source Comments The information contained in this document represents components of the legal health record. It is not the complete legal health record.[facility]
--- OUTSIDE RECORDS SUMMARY | 2025-01-26 15:06 | XMS_ITS | Encounter Summary ---
Author Organization [facility] Address [address] [place] [address] [place] [address] Phone Care Team Providers Care Assemblies And Installations Inspector Name Role Phone Mamadou Loving DO Primary Care Provider Seymour Ferris CLAIMS CLERK Unavailable Tony Miranda MD Unavailable [phone] Keyla Melton PA-C Unavailable [phone] Jamie Soto MD Unavailable [phone] Mamadou Loving DO Unavailable Roger Jorgensen FRAME POLISHER Unavailable Rinku Carrizales MD Unavailable [phone] Ezra Denney NP Primary Care Provider + Encounter Details Date Type Department Care Team (Late st Contact Info) Description 09/04/2018 Procedure Pass [facility] Cardiac Slot Operations Director [address] [facility], Floor 9, [address] [place] [address] Social History Tobacco Use Types [...] Description 02/18/2023 Procedure Pass [facility]iology [address] [place] [address] 02/18/2023 Procedure Pass Non-Invasive Cardiology [address] [place] [address] 07/03/2023 Procedure Pass Non-Invasive Cardiology [address] [place] [address] 10/02/2023 Procedure Pass Non-Invasive Cardiology [address] [place] [address] 10/10/2023 Procedure Pass Non-Invasive Cardiology [address] [place] [address] 10/13/2023 Procedure Pass Non-Invasive Cardiology [address] [place] [address] 08/24/2024 Procedure Pass [facility] [place] [address] 02/02/2025 1:00 PM EDT Appointment Non-Invasive Cardiology [address] [place] [address] Norman Schafer MD [address] [facility], [address] [place] [address] 02/10/2025 8:30 AM EDT Ancillary Procedure [facility] [address] [place] [address] 3rd Floor, [address] [place] [address] Rosemarie Jaramillo DNP [address] [facility], [address] [place] [address] 02/15/2025 1:00 PM EDT Office Visit [facility] Allergy [address], 4th Floor, [address] [place] [address] Radha Garcia MD [address] [facility] [place] [address] [place] [address] [email or web address] 05/03/2025 11:15 AM EST Ancillary Procedure [facility] [address] [place] [address] 3rd Floor, [address] [place] [address] Tony Sargent, DO [address] [place] [address] [place] [address] 08/24/2025 11:15 AM EDT Appointment Echo Lab [address] [place] [address] Tony Sargent DO [address] [facility] [address] [place] [address] [email or web address] documented as of this encounter Visit Diagnoses Not on filedocumented in this encounter Care Teams Assemblies And Installations Inspector Relationship Specialty Start Date End Date Mamadou Loving DO [address] [place] [address] PCP - General 02/20/17 07/06/19 Ezra Denney, NACHO [address] [facility] [place] [address] PCP - General Family Medicine 07/07/19 Seymour Ferris, MIKE [address] May [address] [place] [address] Historical LMR Provider 02/20/1705/12/21 Tony Miranda MD [address] Dr[address] May [address] [place] [address] [email or web address] Historical LMR Provider 02/20/17 Keyla Melton PA-C [address] [place] [address] [email or web address] Historical LMR Provider 02/20/17 05/12/21 Jamie Soto MD 22 [facility] [address] [place] [address] [email or web address] Historical LMR Provider 02/20/17 Mamadou Loving DO [address] [place] [address] Historical LMR Provider 02/20/17 Roger Jorgensen NP [address] [place] [address] [address] [place] [phone] Historical LMR Provider 02/20/17 2 Rinku Carrizales MD [address] [place] [address] [email or web address] Historical LMR Provider 02/20/17 documented as of this encounter Additional Source Comments The information contained in this document represents components of the legal health record. It is not the complete legal health record.[facility]
--- OUTSIDE RECORDS SUMMARY | 2025-01-26 15:06 | XMS_ITS | Encounter Summary ---
Author Organization [facility] Address [address] [place] [address] [address] [place] [address] Phone Care Team Providers Care Conversion Man Name Role Phone Seymour Ferris INSURANCE CUSTOMER SERVICE SPECIALIST Unavailable Tony Miranda MD Unavailable [phone] Keyla Melton PA-C Unavailable Jamie Soto MD Unavailable Mamadou Loving DO Unavailable Roger Jorgensen STEREOTYPER HELPER Unavailable [phone] Rinku Carrizales MD Unavailable [phone] Ezra Denney STEREOTYPER HELPER Primary Care Provider + Encounter Details Date Type Department Care Team (Late st Contact Info) Description 03/14/2020 Procedure Pass [facility] Cardiac EP [address] [facility], 5th Floor, [address] [place] [address] Social History Tobacco Use Types Packs/Day Years [...] Description 02/18/2023 Procedure Pass Non-Invasive Cardiology [address] [place] [address] 02/18/2023 Procedure Pass Non-Invasive Cardiology [address] [place] [address] 07/03/2023 Procedure Pass Non-Invasive Cardiology [address] [place] [address] 10/02/2023 Procedure Pass Non-Invasive Cardiology [address] [place] [address] 10/10/2023 Procedure Pass Non-Invasive Cardiology [address] [place] [address] 10/13/2023 Procedure Pass Non-Invasive Cardiology [address] [place] [address] 08/24/2024 Procedure Pass [facility] [place] [address] 02/02/2025 1:00 PM EDT Appointment Non-Invasive Cardiology [address] [place] [address] Norman Schafer MD [address] [place] [address], [address] [place] [address] 02/10/2025 8:30 AM EDT Ancillary Procedure [facility] [address] [place] [address] 3rd Floor, [address] [place] [address] Rosemarie Jaramillo DNP [address] [facility], [address] [place] [address] 02/15/2025 1:00 PM EDT Office Visit [facility] Allergy [address], 4th Floor, [address] [place] [address] Radha Garcia MD [address] [place] [address] [address] [place] [address] [email or web address] 05/03/2025 11:15 AM EST Ancillary Procedure [facility] [address] [place] [address] 3rd Floor, [address] [place] [address] Tony Sargent, DO 22 [facility] [address] [place] [address] 08/24/2025 11:15 AM EDT Appointment Echo Lab [address] [place] [address] Tony Sargent, DO [address] [place] [address] documented as of this encounter Visit Diagnoses Not on filedocumented in this encounter Care Teams Conversion Man Relationship Specialty Start Date End Date Erza Denney NP [facility] [place] [address] PCP - General Family Medicine 07/07/19 Seymour Ferris, MIKE [address] [place] [address] [email or web address] Historical LMR Provider 02/20/1705/12/21 Tony Miranda MD [address] [place] [address] Dr. May [address] [place] [address] [email or web address] Historical LMR Provider 02/20/17 Keyla Melton PA-C [address] [place] [address] [email or web address] Historical LMR Provider 02/20/17 05/12/21 Jamie Soto MD 22 [facility] 301 [place] [address] [email or web address] Historical LMR Provider 02/20/17 Mamadou Loving DO [address] [place] [address] Historical LMR Provider 02/20/17 Roger Jorgensen NP [address] [place] [address] [address] [place] [address] Historical LMR Provider 02/20/17 2 Rinku Carrizales MD [address] [address] [email or web address] Historical LMR Provider 02/20/17 documented as of this encounter Additional Source Comments The information contained in this document represents components of the legal health record. It is not the complete legal health record.[facility]
--- OUTSIDE RECORDS SUMMARY | 2025-01-26 15:06 | XMS_ITS | Encounter Summary ---
Author Organization [facility] Address [address] [place] [address] Phone Care Team Providers Care Case Manager Name Role Phone Seymour Ferris Christajacky HOUSEKEEPER MANAGER Unavailable Tony Miranda MD Unavailable [phone] Keyla Melton PA-C Unavailable [phone] Jamie Soto MD Unavailable Mamadou Loving DO Unavailable Roger Jorgensen CAKE WRAPPER Unavailable [phone] Rinku Carrizales MD Unavailable [phone] Ezra Denney CAKE WRAPPER Primary Care Provider + Encounter Details Date Type Department Care Team (Late st Contact Info) Description 05/10/2021 Procedure Pass Non-Invasive Cardiology [address] [place] [address] Social History Tobacco Use Types [...] Description 02/18/2023 Procedure Pass Non-Invasive Cardiology [address] [place] [address] 02/18/2023 Procedure Pass Non-Invasive Cardiology [address] [place] [address] 07/03/2023 Procedure Pass Non-Invasive Cardiology [address] [place] [address] 10/02/2023 Procedure Pass Non-Invasive Cardiology [address] [place] [address] 10/10/2023 Procedure Pass Non-Invasive Cardiology [address] [place] [address] 10/13/2023 Procedure Pass Non-Invasive Cardiology [address] [place] [address] 08/24/2024 Procedure Pass [facility] [place] [address] [place] [address] 02/02/2025 1:00 PM EDT Appointment Non-Invasive Cardiology [address] [place] [address] Norman Schafer MD [address] [place] [address], [address] [place] [address] 02/10/2025 8:30 AM EDT Ancillary Procedure [facility] [address] [place] [address] 3rd Floor, [address] [place] [address] Rosemarie Jaramillo DNP [address] [place] [address], [address] [place] [address] 02/15/2025 1:00 PM EDT Office Visit [facility] [place] [address], 4th Floor, [address] [place] [address] Radha Garcia MD [address] [place] [address] [address] [place] [address] [email or web address] 05/03/2025 11:15 AM EST Ancillary Procedure [facility] [address] [place] [address] 3rd Floor, [address] [place] [address] Tony Sargent, DO [address] [facility] [address] [place] [address] 08/24/2025 11:15 AM EDT Appointment Echo Lab [address] [place] [address] Tony Sargent, DO [address] [place] [address] [place] [address] documented as of this encounter Visit Diagnoses Not on filedocumented in this encounter Care Teams Case Manager Relationship Specialty Start Date End Date Ezra Denney NP [facility] [place] [address] PCP - General Family Medicine 07/07/19 Seymour Ferris CNP [address] [place] [address] Dr. May [address] [place] [address] [email or web address] Historical LMR Provider 02/20/1705/12/21 Tony Miranda MD [address] [place] [address] Dr. May [address] [place] [address] [email or web address] Historical LMR Provider 02/20/17 Keyla Melton PA-C [address] [place] [address] [email or web address] Historical LMR Provider 02/20/17 05/12/21 Jamie Soto MD [address] [address] [email or web address] Historical LMR Provider 02/20/17 Mamadou Loving DO [address] [place] [address] Historical LMR Provider 02/20/17 Roger Jorgensen NP [address] [place] [address] [address] [place] [address] Historical LMR Provider 02/20/17 2 Rinku Carrizales MD [address] [place] [address] [email or web address] Historical LMR Provider 02/20/17 documented as of this encounter Additional Source Comments The information contained in this document represents components of the legal health record. It is not the complete legal health record.[facility]
--- OUTSIDE RECORDS SUMMARY | 2025-01-26 15:06 | XMS_ITS | Encounter Summary ---
Author Organization [facility] Address [address] [place] [address] [address] [place] [address] Phone Care Team Providers Care Director Of Sustainability Programs Name Role Phone Mamadou Loving DO Primary Care Provider [phone] Seymour Ferris GENERAL INTERNAL MEDICINE PHYSICIAN Unavailable Tony Miranda MD Unavailable Keyla Melton PA-C Unavailable Jamie Soto MD Unavailable Mamadou Loving DO Unavailable Roger Jorgensen CONTINUOUS MINING OPERATOR Unavailable Rinku Carrizales MD Unavailable [phone] Ezra Denney NP Primary Care Provider + Encounter Details Date Type Department Care Team (Late st Contact Info) Description 11/12/2018 Ancillary Orders [facility] [address] [facility], 4th Floor, [address] [place] [address] Rinku Smith MD [address] [place] [phone] [email or web address] PAD (peripheral artery disease) Social History [...] Description 02/18/2023 Procedure Pass Non-Invasive Cardiology [address] [place] [address] 02/18/2023 Procedure Pass Non-Invasive Cardiology [address] [place] [address] 07/03/2023 Procedure Pass Non-Invasive Cardiology [address] [place] [address] 10/02/2023 Procedure Pass Non-Invasive Cardiology [address] [place] [address] 10/10/2023 Procedure Pass Non-Invasive Cardiology [address] [place] [address] 10/13/2023 Procedure Pass Non-Invasive Cardiology [address] [place] [address] 08/24/2024 Procedure Pass [facility] [address] [place] [address] 02/02/2025 1:00 PM EDT Appointment Non-Invasive Cardiology [address] [place] [address] [place] [address] Norman Schafer MD [address] [facility], [address] [place] [address] 02/10/2025 8:30 AM EDT Ancillary Procedure [facility] [address] [place] [address] 3rd Floor, [address] [place] [address] Rosemarie Jaramillo DNP [address] [facility], [address] [place] [address] 02/15/2025 1:00 PM EDT Office Visit [facility] [place] [address] [facility], 4th Floor, [address] [place] [address] Radha Garcia MD 55 [facility] [address] [place] [address] [email or web address] 05/03/2025 11:15 AM EST Ancillary [facility] [place] [facility] [address] 3rd Floor, [address] [place] [address] Tony Sargent DO [address] [facility] [address] [place] [address] 08/24/2025 11:15 AM EDT Appointment Echo Lab [address] [place] [address] Tony Sargent DO [address] [facility] [address] [place] [address] [email or web address] Scheduled Orders Name Type Priority Associated Diagnoses Orde r Schedule US Lower Extremity Arteries Duplex (Left) Vascular Routine PAD (peripheral artery disease) 1 Occurrences starting 11/12/2018 until 02/12/2019 documented as of this encounter Visit Diagnoses Diagnosis PAD (peripheral artery disease) Unspecified peripheral vascular disease documented in this encounter Care Teams Director Of Sustainability Programs Relationship Specialty Start Date End Date Mamadou Loving DO [address] [place] [address] PCP - General 02/20/17 07/06/19 Ezra Denney, NACHO [address] [facility] [place] [address] PCP - General Family Medicine 07/07/19 Seymour Ferris, MIKE [address] [place] [address] [email or web address] Historical LMR Provider 02/20/1705/12/21 Tony Miranda MD [address] [place] [address] [email or web address] Historical LMR Provider 02/20/17 Keyla Melton PA-C [address] [place] [address] [email or web address] Historical LMR Provider 02/20/17 05/12/21 Jamie Soto MD [address] [place] [address] [email or web address] Historical LMR Provider 02/20/17 Mamadou Loving DO [address] [place] [address] Historical LMR Provider 02/20/17 Roger Jorgensen NP [address] [place] [address] [address] Historical LMR Provider 02/20/17 2 Rinku Carrizales MD [address] [place] [address] [email or web address] Historical LMR Provider 02/20/17 documented as of this encounter Additional Source Comments The information contained in this document represents components of the legal health record. It is not the complete legal health record.[facility]
--- OUTSIDE RECORDS SUMMARY | 2025-01-26 15:06 | XMS_ITS | Encounter Summary ---
Author Organization [facility] Address [address] [place] [address] Care Team Providers Care Gate Agent Name Role Phone Mamadou Loving Primary Care Provider [phone] Zackary Martinez MD Unavailable Encounter Details Date Type Department Care Team (Late st Contact Info) Description 04/07/2017 Scanned Document [facility] [place] [address] Marco Lopez MD [address] [address] Social History Tobacco Use Types Packs/Day Years [...] on filedocumented in this encounter Care Teams Gate Agent Relationship Specialty Start Date End Date Mamadou Loving [address] [place] [address] [place] [address] PCP - General Medicine Hospitalist 03/26/17 Zackary Martinez MD [address] [place] [address] [place] [address] Cardiovascular Disease 04/03/17 documented as of this encounter
--- OUTSIDE RECORDS SUMMARY | 2025-01-26 15:06 | XMS_ITS | Clinical Summary ---
Author Organization [facility] Address [address] [place] [address] Phone Care Team Providers Care Burring Machine Operator Name Role Phone Tony Miranda MD Unavailable Jamie Soto MD Unavailable Rinku Carrizales MD Unavailable [phone] Ezra Denney DELIVERER FOOD Primary Care Provider + Allergies Active Allergy [...] by mouth 2 (two) times a day. 09/22/19 19 Active ascorbic acid, vitamin C, (VITAMIN C) 500 mg Chew Take 500 mg by mouth daily. Active vitamins A,C,E-zinc-galindo er (PRESERVISION AREDS) [id number] Cap Take 1 capsule by mouth 2 (two) times a day with meals. Active JARDIANCE 10 mg tablet Take 10 mg by mouth every morning. 11/29/19 23 Active acetaminophen (TYLENOL) 325 mg tablet Take 2 tablets by mouth. 01/21/20 23 Active cyanocobalamin (VITAMIN B-12) 1,000 mcg/mL injection 12/17/19 23 Active levothyroxine (SYNTHROID,LEVO THROID) 25 MCG tablet Take 50 mcg by mouth every morning. Active OYSTER SHELL CALCIUM 500 500 mg calcium (1,250 mg) tablet Take 1 tablet by mouth 2 (two) times a day. 11/30/19 24 Active alendronate (FOSAMAX) 70 MG tablet Take 1 tablet (70 mg total) by mouth every 7 days. Take in the morning with a full glass of water, on an empty stomach, and do not take anything else by mouth or lie down for the next 30 min. 15 tablet 2 01/16/20 24 Active midodrine (PROAMATINE) 5 MG tablet Take 2 tablets (10 mg total) by mouth 2 (two) times a day. 360 tablet 3 03/18/20 24 Active thiamine (VITAMIN B-1) 100 MG tablet Take 100 mg by mouth daily. Active clopidogrel (PLAVIX) 75 mg tabletIndicatio ns:Medication refill TAKE 1 TABLET(75 MG) BY MOUTH EVERY NIGHT AT BEDTIME 90 tablet 3 04/27/20 24 Active divalproex (DEPAKOTE) [address] tablet TAKE 1 TABLET(500 MG) BY MOUTH TWICE DAILY 180 tablet 06/01/19 25 Active metoprolol succinate (TOPROL-XL) 25 MG 24 hr tabletIndicatio ns:Medication refill Take 0.5 tablets (12.5 mg total) by mouth daily. 45 tablet 3 08/26/19 25 Active calcium carbonate-vitam in D3 1,500 mg (600 mg elemental)-800 units Tab Take 1 tablet by mouth 2 (two) times a day with meals. 60 tablet 5 09/29/19 25 Active isosorbide mononitrate (IMDUR) 30 MG 24 hr tablet Take 30 mg by mouth daily. 10/07/19 25 Active ranolazine (RANEXA) 500 MG 12 hr tablet Take 500 mg by mouth 2 (two) times a day. Active dofetilide (TIKOSYN) 250 MCG capsuleIndicati ons:Medication refill Take 1 capsule (250 mcg total) by mouth daily. 11/16/19 25 Active mirtazapine (REMERON) 7.5 MG tablet Take 7.5 mg by mouth nightly at bedtime. Active cholecalciferol (VITAMIN D3) 25 MCG (1,000 unit) tablet Take 2 tablets by mouth every morning. 11/11/19 25 Active LORazepam (ATIVAN) 1 MG tablet TAKE 1/2 TABLET BY MOUTH THREE TIMES DAILY 11/13/19 25 Active ASPERCREME, LIDOCAINE, 4 % APPLY 1 PATCH TOPICALLY FOR 12 HOURS ON THEN 12 HOURS OFF 11/12/19 25 Active memantine (NAMENDA) 5 MG tablet Take 1 tablet (5 mg total) by mouth 2 (two) times a day. 60 tablet 5 12/09/19 25 026 Active nitroglycerin (NITROSTAT) 0.4 MG SL tablet DISSOLVE 1 TABLET UNDER THE TONGUE EVERY 5 MINUTES NEEDED FOR CHEST PAIN MAY REPEAT 3 TIMES THEN CALL 911 IF NO RELIEF 25 tablet 1 01/06/20 25 Active modafiniL (PROVIGIL) 100 MG tabletIndicatio ns:Autoimmune encephalitis Take 1 tablet (100 mg total) by mouth daily. 30 tablet 5 01/11/20 25 Active nitroglycerin (NITROSTAT) 0.[address] 1 TABLET UNDER THE TONGUE EVERY 5 MINUTES NEEDED FOR CHEST PAIN 25 tablet 1 06/30/19 25 025 Discontinued modafiniL (PROVIGIL) 100 MG tabletIndicatio ns:Autoimmune encephalitis Take 1 tablet (100 mg total) by mouth daily. 30 tablet 5 09/16/19 25 025 Discontinued(Re order) Active Problems Problem Noted Date Diagnosed Date ICD (implantable cardioverter-defibrillator) in place 11/16/2024 Assessment & Plan (11/22/2024 11:19 AM EDT): Device interrogated today. 5.7 yr battery life. RV pacing and sensing stable. ACCOUNTING MACHINE OPERATOR <1%. No episodes noted. No parameter changes. Plan: Continue remote checks Plan for upgrade Assessment & Plan (11/16/2024 12:11 PM EDT): Recent remote interrogation done on 07/2024-Phil ICD HF report, WNL. Available HF diagnostics and trends do not indicate fluid accumulation/HF decompensation. I am going to have him see Traci after in person interrogation at her next follow- up. We will continue with remote interrogations every 3 months and in person interrogations once a year. It was reported during visit [facility] hospitalization If no decent revascularization options on cardiac catheterization, may need to discuss with the EP whether a TELESALES SPECIALIST upgrade would be indicated for the patient [...] Plan (07/07/2024 1:02 PM EST): hospitalized at [facility] 05/22 through 05/30/2024 Status post mechanical [...] Plan (06/17/2024 5:16 PM EST): hospitalized at [facility] 05/22 through 05/30/2024 Status post mechanical [...] PM EDT): Being followed by neurology at [facility]. He is on high doses of prednisone [...] patient has been seen by neurology at [place] and they have not been able to determine a cause for his symptoms. I wonder if his Paxil or trazodone are playing a role in his symptoms. I have suggested that the patient see another neurologist. I have sent a referral to Dr. Jacobs's office in [place]. Encounter for monitoring amiodarone therapy 12/03 Assessment & Plan (12/17/2021 11:52 AM EDT): We will check a hepatic panel and a TSH. History of difficult intubation 09/03/2018 Cardiac arrest 09/02/2018 CAD (coronary artery disease) 06/27/2018 Assessment & Plan (06/27/2018 1:34 AM EST): Discussed CAN SLIDER PCI of LAD and LCx as above. - CTA a/p and coronary CT - Schedule CAN SLIDER PCI afterwards - Start ranexa - Continue [...] considering an atrial lead when implanting a TELESALES SPECIALIST-D to monitor AF burden. Plan: Continue Eliquis [...] paroxysmal atrial fibrillation. Amiodarone stopped while at [facility] due to absence of atrial fibrillation. Remains anticoagulated on Eliquis, currently denying palpitations. Assessment & Plan (11/03/2018 2:16 PM EDT): Had a history of paroxysmal atrial fibrillation. Amiodarone stopped while at [facility] due to absence of atrial fibrillation. Remains anticoagulated on Eliquis. Currently denies palpitations. Assessment & Plan (09/18/2018 10:04 AM EDT): Rhythm control and anticoagulation strategy on amiodarone 400 mg daily, metoprolol, and rivaroxaban [employer]. CHADSsVASC 4. 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 [facility] cardiac cath on October 20, 2024-He recently a had cardiac cath procedure on 10/20/2024 which showed continued patency of HARTLEY-LAD and occluded kashia vessels and bypass grafts. It did not find targets for PCI. ACC Diagnostic Recommendations: Medical therapy and/or counseling. Dr. Gómez consulted on patient's and it was reported if patient has no decent revascularization options on cardiac catheterization, may need to discuss with the EP whether a TELESALES SPECIALIST upgrade would be indicated for the patient in this context given baseline bradycardia and bifascicular block with wide QRS in light of underlying ischemic cardiomyopathy. I am going to have patient follow-up with EP in regards to this. Dr. Gómez also noted that patient may be someone who would be a candidate for enrollment in thecosira trial (coronary sinus soap maker) given his ongoing chest pain with no [...] emergency room visit back February 2024 at [facility] with chest discomfort. He did rule out [...] distal LAD worse EF 35 graft same 2016 PCI UMS to LAD and RCA; REYNA [...] (11/24/2018 1:21 PM EDT): Was recently at [facility] for stenting of totally occluded vessels. CAN SLIDER PCI was unsuccessful, mid LAD PCI successful. Procedure was comp gated by cardiac arrest, status post ICD shock x4, patient required intubation and Impella placement. Patient had prolonged stay of 6 weeks involving time in CCU. He completed rehab in [place] and did well. Currently denying chest pain [...] (11/03/2018 2:22 PM EDT): Was recently at [facility] for stenting of totally occluded vessels. CAN SLIDER PCI was unsuccessful, mid LAD PCI successful. Procedure complicated by cardiac arrest, status post ICD shock x4, patient intubated and Impella placed. Patient had prolonged stay of 6 weeks involving time in the the CCU. He has completed rehab in [place] facility and did well. In the office [...] 34%, CCS 3-4 angina/dyspnea, CTOs of all kashia vessels and SVG- RCA and SVG-OM. Stress test 08/26/18: large severe mixed defect AL reinoso & severe fixed defect INF and basal to mid IL wall. LVEF 34%. Admitted for RCA CAN SLIDER PCI and LAD PCI 09/02/18: Procedure c/b cardiac arrest, VF s/p ICD shock x 4, requiring intubation and Impella. CAN SLIDER PCI was unsuccessful, mid LAD PCI successful [...] triple Rx (ASA, Plavix, apixaban) until [facility] then stop aspirin and continue PPI -- [...] Apparently there is an interventional list at [facility] who has contacted Don about proceeding with [...] have the films were reviewed at the [facility]. Ischemic cardiomyopathy 04/09/2017 Assessment & Plan [...] We discussed upgrading his device to a TELESALES SPECIALIST-D. We have discussed the r/b/a for implantation of a Chronic Resynchronization Therapy Defibrillator or TELESALES SPECIALIST-D. A TELESALES SPECIALIST device is used in patients with heart failure to potentially improve the overall pumping function and synchronization of the ventricles. This device is used in conjunction with GDMT as tolerated by the patient. Patients with heart failure may be at increased risk for fatal cardiac arrhythmias including ventricular tachycardia and ventricular fibrillation. A TELESALES SPECIALIST with defibrillator function will provide therapy for these life-threatening arrhythmias including an electrical discharge or defibrillation while also providing pacemaker function for potential improvement in ejection fraction and heart failure symptoms. The risks of implantation include bleeding, infection, perforation requiring emergency intervention, vascular injury, pericardial effusion, hemo/pneumothorax, stroke, cardiac arrest, or . The patient is made aware that TELESALES SPECIALIST implantation may not improve heart failure symptoms. The patient verbalized understanding of the information provided. The [place] Program for Patient Centered Decisions was utilized during this encounter. Plan: Continue metoprolol Continue Ranexa Continue rosuvastatin Continue clopidogrel Continue Imdur Continue Jardiance Continue Zetia Discontinue Entresto Schedule TELESALES SPECIALIST-D Assessment & Plan (11/16/2024 12:12 PM EDT): Most recent echo done at [facility] during hospitalization shows a EF of [...] surgery 30 years ago he was at [facility] with chest pain but was discharged [...] of 38%, NENA was stopped while at [facility]. We will start him on low-dose Entresto, [...] EDT): Controlled on metoprolol ER, lisinopril, furosemide [employer]. Probable sleep apnea and an outpt sleep study has been ordered in [place]. - his blood pressure remain well controlled [...] Overview (09/01/2018): s/p EVAR, bilateral ARCHIE stenting [facility] Dr. Lopez Assessment & Plan [...] Encounters Date Type Department Care Team Description 01/20/2025 [facility] [address] Floor, [address] [place] [address] Traci Gallardo DNP Medication Refill 01/05/2025 Refill [facility] [address], [address] [place] [address] Macrina Fisher PA-C Medication Refill 12/15/2024 9:45 AM EDT Office Visit [facility] [address] [facility], [address] [place] [address] Tony Sargent DO Ischemic cardiomyopathy (Primary Dx); 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; Essential hypertension; Paroxysmal atrial fibrillation 12/09/2024 Orders Only [facility] [address] [facility], [address] [place] [address] ProviderTanner MD 12/08/2024 11:00 AM EDT Office Visit Division of Immunologic, Inflammatory, and Infectious Neurological Disorders [address] [place] [address], 7th Floor, [address] [place] [address] Zenaida Griffiths MD Autoimmune encephalitis (Primary Dx); Memory loss; Cognitive and behavioral changes 11/25/2024 Orders Only [facility] [address] [facility], [address] [place] [address] Tanner Watkins MD 11/22/2024 9:30 AM EDT Office Visit [facility] [address] [facility], [address] [place] [address] Traci Gallardo DNP 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 (Primary Dx); Ischemic cardiomyopathy; Essential hypertension; Paroxysmal atrial fibrillation; ICD (implantable cardioverter-defibril lator) in place 11/22/2024 Telephone [facility] [address], [address] [place] [address] Bobby Rivera MD 11/18/2024 Orders Only [facility] [address], [address] [place] [address] Tanner Watkins MD 11/15/2024 11:54 AM EDT - 11/15/2024 11:59 PM EDT Hospital Encounter [facility] [address] [place] [address] Jordana Webb MD Discharge Disposition: Home or Self Care 11/15/2024 11:30 AM EDT Office Visit [facility] [address], [address] [place] [address] Radha Peters DNP 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 (Primary Dx); Medication refill; Ischemic cardiomyopathy; ICD (implantable cardioverter-defibril lator) in place; Paroxysmal atrial fibrillation 11/15/2024 Telephone [facility] [address], [address] [place] [address] Radha Peters DNP 11/15/2024 Telephone [facility] [address], [address] [place] [address] Radha Peters DNP from Last 3 Months Immunizations Immunization Administration [...] Description 02/18/2023 [facility] [address] [place] [address] 02/18/2023 [facility] [address] [place] [address] 07/03/2023 Procedure [facility] [address] [place] [address] 10/02/2023 Procedure [facility] [address] [place] [address] 10/10/2023 Procedure [facility] [address] [place] [address] 10/13/2023 Procedure [facility] [address] [place] [address] 08/24/2024 Procedure Pass [facility] [place] [address] 02/02/2025 1:00 PM EDT Appointment Non-Invasive Cardiology [address] [place] [address] Norman Schafer MD [address] [facility], [address] [place] [address] [email or web address] 02/10/2025 8:30 AM EDT Ancillary Procedure [facility] [address] [place] [address] 3rd Floor, [address] [place] [address] Rosemarie Jaramillo, FRANK [address] [facility], [address] [place] [address] 02/15/2025 1:00 PM EDT Office Visit [facility] Allergy [facility] [address] [facility], 4th Floor, [address] [place] [address] Radha Garcia MD [address] [place] [address] [address] [place] [address] [email or web address] 05/03/2025 11:15 AM EST Ancillary Procedure [facility] [address] [place] [address] [address] [facility], [address] [place] [address] Tony Sargent, DO [address] [place] [address] 08/24/2025 11:15 AM EDT Appointment Echo Lab [address] [place] [address] Tony Sargent, DO [address] [place] [address] [place] [address] Health Maintenance Due Date Last Done Comments Adult Td,Tdap Booster 1950 HEPATITIS C SCREENING 1966 ZOSTER VACCINES (1 of 2) 1998 DEPRESSION SCREENING 09/03/2019 09/02/2018 TSH LEVEL 12/17/2022 12/17/2021, 02/03, 06/11/2018, Additional history exists RSV VACCINE (1 - 1-dose 75+ series) 2023 VALPROIC ACID (DEPAKENE) LEVEL 12/02/2024 12/03/2023 INFLUENZA VACCINE (#1) 2024 , 02/14/2020, 03/05/2019, Additional history exists COVID-19 VACCINE ( season) 2025 03/04/2022, 03/09/2021, 08/02/2020, Additional history [...] this topic Medical Devices Implanted Type Area Tooth Cutter Clutch Device Identifier Shelf Expiration Date Model / Serial / Lot Medtronic ICD Stent Drug Eluting 2.34d32ic [facility] - [id number] Implanted:Qty: 1 on 09/02/2018 by Alyssa York MD, PhD at [facility] Stent BIOTRONIK 02/13/2020 [id number] / / [id number] Procedures Procedure Name Priority Date/Time Associated Diagnosis [...] EP STUDY Routine 11/11/2024 2:18 PM EDT COMPREHENSIVE METABOLIC PANEL Routine 10/12/2024 9:32 AM EDT Autoimmune encephalitis VALPROIC ACID Routine 12/03/2023 1:36 PM EDT Autoimmune encephalitis TSH WITH REFLEX Routine 12/17/2021 11:58 AM EDT Encounter for monitoring amiodarone therapy from Last 3 Months or Most Recently Relevant to Health Maintenance Results * (ABNORMAL) HEMOGLOBIN A1C, [place] SENDOUT (11/15/2024 12:14 PM EDT) HEMOGLOBIN A1C <4.0(L) 4.0 - 5.6 % [facility] DPT OF LAB MED AND PAT+ Comment: [...] 4 PM EDT 11/16/2024 9:49 AM EDT Jordana Webb MD LAB BLOOD ORDERABLES Final Resu lt [facility] DPT OF LAB MED AND PAT+ [address] [place] [address] * HIV-1/2 antigen/antibody (11/15/2024 12:14 PM EDT) HIV-1/2 Antigen/Antibo dy NON-REACTI VE NON-REACTI VE [facility] Blood 11/15/2024 12:1 4 PM EDT 11/15/2024 12:18 PM EDT us Jordana Webb MD LAB BLOOD ORDERABLES Final Resu lt [address] [address] * (ABNORMAL) LFTs (hepatic panel) (11/15/2024 12:14 PM EDT) ALKALINE PHOSPHATASE 66 39 - 117 U/L [facility] TOTAL BILIRUBIN 1.0 0.0 - 1.2 mg/dL [facility] DIRECT BILIRUBIN 0.4(H) 0.0 - 0.2 mg/dL [facility] Bilirubin (Indirect) 0.6 0 - 1.5 mg/dL [facility] AST 21 0 - 37 U/L [facility] ALT 16 0 - 40 U/L [facility] TOTAL PROTEIN 5.7(L) 6.5 - 8.0 g/dL [facility] ALBUMIN 3.9 3.9 - 4.8 g/dL [facility] GLOBULIN 1.8 1 - 4.8 g/dL [facility] A/G Ratio 2.17 1.00 - 4.80 RATIO [facility] Blood 11/15/2024 12:1 4 PM EDT 11/15/2024 12:18 PM EDT us Toyn Sargent DO LAB BLOOD ORDERABLES Final Re sult Performing Organization Address City/[facility]/ZIP Co de Phone Number [address] [address] * (ABNORMAL) Lipid panel (11/15/2024 12:14 PM EDT) HDL 82 mg/dL [facility] Comment: Interpretation <40 mg/dL: Low HDL cholesterol (major risk factor for CHD) Greater than or equal to 60 mg/dL: High HDL cholesterol ( negative risk factor for CHD) HDL - cholesterol is affected by a number of factors, e.g. smoking, excerise, hormones, sex and age. CHOLESTEROL 149 0 - 240 mg/dL [facility] TRIGLYCERIDES 45 30 - 160 mg/dL [facility] LDL 58 50 - 129 mg/dL [facility] Comment: LDL levels in terms of risk for coronary heart disease: <100 mg/dL: Optimal 100-129 mg/dL: Near or above optimal 130-159 mg/dL: Borderline high 160-189 mg/dL: High >190 mg/dL: Very High CARDIAC RISK RATIO 1.8(L) 3.4 - 5.0 [facility] Blood 11/15/2024 12:1 4 PM EDT 11/15/2024 12:18 PM EDT us Tony Sargent DO LAB BLOOD ORDERABLES Final Re sult [facility] [address] [place] [address] * Outside EP Study Report Only (11/11/2024 2:18 PM EDT) us Historical Provider CV ELECTROPHYSIOLOGY CYNTHIA SANFORD Final Result * (ABNORMAL) Comprehensive metabolic panel (10/12/2024 9:32 AM EDT) SODIUM 142 133 - 146 mmol/L [facility] POTASSIUM 5.0 3.3 - 5.1 mmol/L [facility] CHLORIDE 105 96 - 108 mmol/L [facility] CO2 28 21 - 35 mmol/L [facility] BUN 26(H) 6 - 19 mg/dL [facility] CREATININE 1.00 0.5 - 1.5 mg/dL [facility] GLUCOSE 130(H) 70 - 99 mg/dL [facility] ALBUMIN 4.0 3.9 - 4.8 g/dL [facility] TOTAL PROTEIN 5.8(L) 6.5 - 8.0 g/dL [facility] CALCIUM 9.6 8.4 - 10.3 mg/dL [facility] ALKALINE PHOSPHATASE 88 39 - 117 U/L [facility] TOTAL BILIRUBIN 0.7 0.0 - 1.2 mg/dL [facility] AST 19 0 - 37 U/L [facility] ALT 20 0 - 40 U/L [facility] GLOBULIN 1.8 1 - 4.8 g/dL [facility] EGFR 78 >59 mL/min/1.7 3m2 [facility] Comment:Estimated glomerular filtration rate calculated using the CKD-EPI refit equation. ANION GAP 14 10 - 20 mmol/L [facility] 10/12/2024 9:32 AM EDT 10/12/2024 10:54 AM EDT us Dillon Gee MD LAB BLOOD ORDERABLE S Final Result Performing Organization Address City/[facility]/ZIP Co de Phone Number [facility] [address] [place] [address] * Valproic acid (12/03/2023 1:36 PM EDT) VALPROIC ACID 62.7 50.0 - 100.0 ug/mL [facility] 12/03/2023 1:36 PM EDT 12/03/2023 5:05 PM EDT us Whitney García MD LAB BLOOD ORDERABLES Final Resu lt Performing Organization Address [facility]/ZIP Co de Phone Number [address] [address] * TSH with reflex (12/17/2021 11:58 AM EDT) TSH 2.60 0.27 - 4.20 uIU/mL [facility] Blood 12/17/2021 11:5 8 AM EDT 12/17/2021 12:00 PM EDT us Seymour Ferris CNP LAB BLOOD ORDERABLES Final Result Performing Organization Address [facility]/ZIP Co de Phone Number [address] [address] from Last 3 Months or Most Recently Relevant to Health Maintenance Insurance MEDICARE PART A & B [employer] SUPPLEMENT MEDICARE PART A & B [employer] SUPPLEMENT MEDICARE PART A & B [employer] SUPPLEMENT MEDICARE PART A & B [employer] SUPPLEMENT MEDICARE PART A & B [employer] SUPPLEMENT MEDICARE PART A & B [employer] SUPPLEMENT MEDICARE PART A & B [facility] MEDEX SUPPLEMENT MEDICARE PART A & B [employer] SUPPLEMENT MEDICARE PART A & B [employer] SUPPLEMENT Advance Directives For more information, please contact: [phone] (9AM - 5PM Jessie/[facility], Friday-Friday) * Full Code (Confirmed) (Latest Code Status on File) Date Activated Date Inactivated Comments 09/02/2018 9:07 PM 09/21/2018 3:45 PM Question Answer Comments Code Status Confirmed With: Family Care Teams Burring Machine Operator Relationship Specialty Start Date End Date Ezra Denney NP [address] [place] [address] PCP - General Family Medicine 07/07/19 Tony Miranda MD [email or web address] Historical LMR Provider 02/20/17 Jamie Soto MD [address] [place] [address], [address] [address] [email or web address] Historical LMR Provider 02/20/17 Rinku Carrizales MD [address] [place] [address] [email or web address] Historical LMR Provider 02/20/17 Additional Source Comments The information contained in this document represents components of the legal health record. It is not the complete legal health record.Formerly [facility]
--- OUTSIDE RECORDS SUMMARY | 2025-01-26 15:06 | XMS_ITS | Encounter Summary ---
Author Organization [facility] Address [address] [place] [address] [place] [address] Phone Care Team Providers Care Single Needle Tufting Machine Operator Name Role Phone Tony Miranda MD Unavailable [phone] Jamie Soto MD Unavailable [phone] Rinku Carrizales MD Unavailable [phone] Ezra Denney BELLMAN Primary Care Provider + Encounter Details Date Type Department Care Team (Late st Contact Info) Description 11/15/2024 [facility] [address] [facility] 3rd Floor, [address] [place] [address] Radha Peters, [facility] [address] [place] [address] [email or web address] Social History Tobacco Use Types Packs/Day Years [...] You consulted on patient during his recent [facility] hospitalization for chest pain. It was advised that patient may be a candidate for the cosira trial (coronary sinus community outreach manager) given his ongoing chest pain with no good pci targets? I am not familiar with this trial. I have him following up with Dr. Michaels-is there something I can do in the mean time to help the pt with this? He has been asymptomatic since his last [facility] visit. Thanks Radha documented in this encounter Plan of Treatment Upcoming Encounters Date Type Department Care Team (Latest Contact Info) Description 02/18/2023 Procedure Pass Non-Invasive Cardiology [address] [place] [address] 02/18/2023 Procedure Pass Non-Invasive Cardiology [address] [place] [address] 07/03/2023 Procedure Pass Non-Invasive Cardiology [address] [place] [address] 10/02/2023 Procedure Pass [place] [address] 10/10/2023 Procedure Pass [place] [address] 10/13/2023 Procedure Pass Non-Invasive Cardiology [address] [place] [address] 08/24/2024 Procedure Pass [place] [address] 02/02/2025 1:00 PM EDT Appointment Non-Invasive Cardiology [address] [place] [address] [place] [address] Norman Schafer MD [address] [facility], [address] [place] [address] [email or web address] 02/10/2025 8:30 AM EDT Ancillary Procedure [facility] [address] [place] [address] 3rd Floor, [address] [place] [address] Rosemarie Jaramillo DNP [address] [place] [address], [address] [place] [address] [address] 02/15/2025 1:00 PM EDT Office Visit [facility] Allergy [address], 4th Floor, [address] [place] [address] Radha Garcia MD [address] [place] [address] [address] [place] [address] [email or web address] 05/03/2025 11:15 AM EST Ancillary Procedure [facility] [address] [place] [address] 3rd [facility], [facility], [address] [place] [address] Tony Sargent, DO [address] [place] [address] 08/24/2025 11:15 AM EDT Appointment Echo Lab [address] [place] [address] Tony Sargent, DO [address] [facility] [address] [place] [address] documented as of this encounter Visit Diagnoses Not on filedocumented in this encounter Care Teams Single Needle Tufting Machine Operator Relationship Specialty Start Date End Date Ezra Denney NP [facility] [place] [address] PCP - General Family Medicine 07/07/19 Tony Miranda MD [email or web address] Historical LMR Provider 02/20/17 Jamie Soto MD [address] [place] [address] [email or web address] Historical LMR Provider 02/20/17 Rinku Carrizales MD [address] [place] [address] [email or web address] Historical LMR Provider 02/20/17 documented as of this encounter Additional Source Comments The information contained in this document represents components of the legal health record. It is not the complete legal health record.[facility]
--- OUTSIDE RECORDS SUMMARY | 2025-01-26 15:06 | XMS_ITS | Encounter Summary ---
Author Organization [facility] Address [address] [place] [address] Phone Care Team Providers Care Microwave Supervisor Name Role Phone Seymour Ferris Christajacky SOLID WASTE ENGINEER Unavailable Tony Miranda MD Unavailable [phone] Keyla Melton PA-C Unavailable [phone] Jamie Soto MD Unavailable Mamadou Loving DO Unavailable Roger Jorgensen IT SERVICE CONTINUITY SUPERVISOR Unavailable Rinku Carrizales MD Unavailable [phone] Ezra Denney IT SERVICE CONTINUITY SUPERVISOR Primary Care Provider + Encounter Details Date Type Department Care Team (Late st Contact Info) Description 01/24/2021 Procedure Pass Non-Invasive Cardiology [address] [place] [address] Social History Tobacco Use Types [...] Description 02/18/2023 Procedure Pass Non-Invasive Cardiology [address] [place] [address] 02/18/2023 Procedure Pass Non-Invasive Cardiology [address] [place] [address] 07/03/2023 Procedure Pass Non-Invasive Cardiology [address] [place] [address] 10/02/2023 Procedure Pass Non-Invasive Cardiology [address] [place] [address] 10/10/2023 Procedure Pass Non-Invasive Cardiology [address] [place] [address] 10/13/2023 Procedure Pass Non-Invasive Cardiology [address] [place] [address] 08/24/2024 Procedure Pass Echo [facility] [place] [address] [place] [address] 02/02/2025 1:00 PM EDT Appointment Non-Invasive Cardiology [address] [place] [address] Norman Schafer MD [address] [place] [address], [address] [place] [address] 02/10/2025 8:30 AM EDT Ancillary Procedure [facility] [address] [place] [address] 3rd Floor, [address] [place] [address] Rosemarie Jaramillo DNP [address] [place] [address], [address] [place] [address] 02/15/2025 1:00 PM EDT Office Visit [facility] Allergy [address], 4th Floor, [address] [place] [address] Radha Garcia MD [address] [place] [address] [address] [place] [address] [email or web address] 05/03/2025 11:15 AM EST Ancillary Procedure [facility] [address] [place] [address] 3rd Floor, [address] [place] [address] Tony Sargent, DO [address] [facility] [address] [place] [address] 08/24/2025 11:15 AM EDT Appointment Echo Lab [address] [place] [address] Tony Sargent, DO [address] [place] [address] [place] [address] documented as of this encounter Visit Diagnoses Not on filedocumented in this encounter Care Teams Microwave Supervisor Relationship Specialty Start Date End Date Ezra Denney NP [facility] [place] [address] PCP - General Family Medicine 07/07/19 Seymour Ferris CNP [address] [place] [address] Dr. May [address] [place] [address] [email or web address] Historical LMR Provider 02/20/1705/12/21 Tony Miranda MD [address] [place] [address] Dr. May [address] [place] [address] [email or web address] Historical LMR Provider 02/20/17 Keyla Melton PA-C [address] [place] [address] [email or web address] Historical LMR Provider 02/20/17 05/12/21 Jamie Soto MD [address] [address] [email or web address] Historical LMR Provider 02/20/17 Mamadou Loving DO [address] [place] [address] Historical LMR Provider 02/20/17 Roger Jorgensen NP [address] [place] [address] [address] [place] [address] Historical LMR Provider 02/20/17 2 Rinku Carrizales MD [address] [place] [address] [email or web address] Historical LMR Provider 02/20/17 documented as of this encounter Additional Source Comments The information contained in this document represents components of the legal health record. It is not the complete legal health record.[facility]
--- OUTSIDE RECORDS SUMMARY | 2025-01-26 15:06 | XMS_ITS | Encounter Summary ---
Author Organization [facility] Address [address] [place] [address] Care Team Providers Care Novelty Balloon Assembler And Packer Name Role Phone Mamadou Loving Primary Care Provider [phone] Zackary Martinez MD Unavailable Encounter Details Date Type Department Care Team (Late st Contact Info) Description 03/31/2017 Scanned Document [facility] [place] [address] Marco Lopez MD [address] [address] Social History Tobacco Use Types Packs/Day Years [...] on filedocumented in this encounter Care Teams Novelty Balloon Assembler And Packer Relationship Specialty Start Date End Date Mamadou Loving [address] [place] [address] [place] [address] PCP - General Medicine Hospitalist 03/26/17 Zackary Martinez MD [address] [place] [address] [place] [address] Cardiovascular Disease 04/03/17 documented as of this encounter
--- OUTSIDE RECORDS SUMMARY | 2025-01-26 15:06 | XMS_ITS | Encounter Summary ---
Author Organization [facility] Address [address] [place] [address] Phone Care Team Providers Care Ice Cream Dispenser Name Role Phone Mamadou Loving DO Primary Care Provider [phone] Seymour Ferris ASSISTANT PROFESSOR OF MUSIC Unavailable Tony Miranda MD Unavailable Keyla Melton PA-C Unavailable Jamie Soto MD Unavailable Mamadou Loving DO Unavailable Roger Jorgensen CRYSTAL INSPECTOR Unavailable Rinku Carrizales MD Unavailable [phone] Ezra Denney NP Primary Care Provider + Encounter Details Date Type Department Care Team (Late st Contact Info) Description 09/02/2018 Procedure Pass [facility] PERIOPERATIVE DEPT [address] [place] [address] Social History Tobacco Use Types [...] Description 02/18/2023 Procedure Pass Non-Invasive Cardiology [address] [place] [address] 02/18/2023 Procedure Pass Non-Invasive Cardiology [address] [place] [address] 07/03/2023 Procedure Pass Non-Invasive Cardiology [address] [place] [address] 10/02/2023 Procedure Pass Non-Invasive Cardiology [address] [place] [address] 10/10/2023 Procedure Pass Non-Invasive Cardiology [address] [place] [address] 10/13/2023 Procedure Pass Non-Invasive Cardiology [address] [place] [address] 08/24/2024 Procedure Pass Echo Lab [place] [address] 02/02/2025 1:00 PM EDT Appointment Non-Invasive Cardiology [address] [place] [address] Norman Schafer MD 22 [facility], [address] [place] [address] 02/10/2025 8:30 AM EDT Ancillary Procedure [facility] [address] [place] [address] 3rd Floor, [address] [place] [address] Rosemarie Jaramillo DNP [address] [place] [address], [address] [place] [address] 02/15/2025 1:00 PM EDT Office Visit [facility] Allergy [address], 4th Floor, [address] [place] [address] Radha Garcia MD [address] [place] [address] [address] [place] [address] [email or web address] 05/03/2025 11:15 AM EST Ancillary Procedure [facility] [address] [place] [address] Dr 3rd Floor, [address] [place] [address] Tony Sargent DO [address] [place] [address] [place] [address] 08/24/2025 11:15 AM EDT Appointment Echo Lab [address] [place] [address] Tony Sargent DO [address] [place] [address] [place] [address] documented as of this encounter Visit Diagnoses Not on filedocumented in this encounter Care Teams Ice Cream Dispenser Relationship Specialty Start Date End Date Mamadou Loving DO [address] [place] [address] PCP - General 02/20/17 07/06/19 Ezra Denney, NACHO [address] [facility] [place] [address] PCP - General Family Medicine 07/07/19 Seymour Ferris CNP [place] [address] May [address] [place] [address] Historical LMR Provider 02/20/1705/12/21 Tony Miranda MD [place] [address] May [address] [place] [address] [email or web address] Historical LMR Provider 02/20/17 MeltonKeyla ray PA-C [address] [place] [address] [email or web address] Historical LMR Provider 02/20/17 05/12/21 Jamie Soto MD [address] [facility] [address] [place] [address] [email or web address] Historical LMR Provider 02/20/17 Mamadou Loving DO [address] [place] [address] Historical LMR Provider 02/20/17 Roger Jorgensen NP [address] [place] [address] [address] [place] [phone] Historical LMR Provider 02/20/17 2 Rinku Carrizales MD [address] [address] [email or web address] Historical LMR Provider 02/20/17 documented as of this encounter Additional Source Comments The information contained in this document represents components of the legal health record. It is not the complete legal health record.[facility]
== END 2025-01-26 13:34 | disposition home or self-care (01) ==
PROVIDERS: PCP Nurse Practitioner Family; Visit Provider Physician Assistant
DX: T82.837A Hemorrhage due to cardiac prosthetic devices, implants and grafts, initial encounter (principal)

== ENCOUNTER → 2025-01-26 12:33 | Outpatient (BNVA) | payer MEDICARE, SELFPAY | PROVIDERS: PCP Nurse Practitioner Family; Visit Provider Physician Assistant | DX: T82.837A Hemorrhage due to cardiac prosthetic devices, implants and grafts, initial encounter (principal); Z95.810 Presence of automatic (implantable) cardiac defibrillator | CPT/HCPCS: 99212 ==

== ENCOUNTER 2025-03-23 12:52 | Outpatient (AMB) | payer MEDICARE, SELFPAY ==
[2025-03-23 13:04] VITALS: BP 130/76; PULSE 60; O2SAT 98; BMI 25.1
--- NOTE | 2025-03-23 13:04 | AM.OFFWIN_ITS ---
Intake Vital Signs 03/23/25 13:04 Height 6 ft Weight 185 lb BMI 25.1 BP 130/76 Blood Pressure Location Lt brachial Position Sitting Pulse 60 Pulse Source Pulse Oximeter Pulse Oximetry (%) 98 Oxygen Delivery Method Room Air Intake Visit Reasons: EP chest pain hard time breathing Intake Note: Patient presents c/o chest pain that started about 30 minutes ago. Patient Tobacco Use Status: Current someday Tobacco user Allergies Penicillins (PENICILLINS) Allergy (Intermediate, Verified 03/23/25 13:05) ITCHY RASH HPI HPI Comments History of Present Illness Details History of Present Illness - The patient is a 74-year-old male pres enting with chest pain and swelling in the legs. - The pain began approximately 30 minute s prior to the visit while the patient was seated on the deck, rated at a severity of 8 out of 10. - The pain is a sharp constant pain in t he substernal region with no radiation of the pain. - The pain persists without relief from rest or nitroglycerin, and there are no accompanying symptoms such as nausea or vomiting. - The patient has experienced similar ep isodes previously, with normal cardiac evaluations during multiple ER visits Sat and 2 last week. - Current medications include omeprazole for GERD and ranolazine for chronic angina, though a GI endoscopy has not been performed. - The patient also reports leg swelling and has a history of bundle branch block. - His states that he had labs, CXR, and EKGs and was told that it was not his heart. - He has a f/u with cardiology in Apr. - He admits that it tends to happen afte r eating. - He had a blueberry muffin, OJ, cranber ry juice and seltzer today. - He denies YAN, PND, nausea, vomiting, diarrhea, fever, chills, AMADOR, or syncope. Physical Exam General: Cooperative, healthy appearing, comfortable, no acute distress and well developed Orientation: Patient oriented x3 Limitations: No limitations Neck: Normal visual inspection and Yes full ROM. No carotid bruits. Respiratory: Normal respiratory effort and able to speak in complete sentences. Clear to auscultation bilaterally Cardiovascular: Regular rate and rhythm. Normal S1 and S2. NO m/r/g noted. GI: Normal to inspection. Soft to palpation. TTP of the epigastric region. No guarding or rebound tenderness noted. Negative [place] noted. Skin: No rashes or lesions noted Neuro: Patient oriented x3 Extremities: Swollen legs noted, 1-2+ pitting edema. Patient was informed and verbally consented to the use of an ambient scribe for clinic note documentation during this visit. [facility] Medical History STEMI (ST elevation myocardial infarction) Fall Atrial fibrillation with RVR Respiratory failure Limbic encephalitis Hypotension History of blood transfusion Osteopenia Hyperparathyroidism Severe obstructive sleep apnea Hypothyroidism Familial hypocalciuric hypercalcemia Vitamin D deficiency HTN (hypertension) Carpal tunnel syndrome of left wrist Ischemic cardiomyopathy Left carpal tunnel syndrome PTSD (post-traumatic stress disorder) FÉLIX (obstructive sleep apnea) Pulmonary nodule Paroxysmal atrial fibrillation Depression CAD (coronary artery disease) Surgical History Hx of cataract Hx of total knee replacement History of AAA (abdominal aortic aneurysm) repair AICD (automatic cardioverter/defibrillator) present Hx of colonoscopy Hx of discectomy Hx of appendectomy Hx of tonsillectomy S/P CABG x 6 Family History Father CAD (coronary artery disease) Substance use disorder Mother CVA (cerebral vascular accident) Paternal Uncle Substance use disorder Other Mental health disorder Social History Household Members: Spouse Housing: House Are you a primary medicare coordinator to a significant other at home: No Do you presently have visiting nurse or other home services: No Alcohol intake: never Comment: aware of trip hazard Patient Tobacco Use Status: Current someday Tobacco user Tobacco use type: Cigar e-Cigarette/Vaping Use: Never Used Second Hand Smoke Exposure: No Substance Use Type: Marijuana Advance Directives Date on File: 07/27/21 service: No Current occupational status: retired Sexual orientation: Straight/Heterosexual Cognitive needs: No Hearing needs: No Vision needs: Yes Review of Systems Const All systems reviewed & are unremarkable except as noted in HPI and below Physical Exam Vital Signs: Last Vital Signs Pulse 60 03/23/25 13:04 BP 130/76 03/23/25 13:04 Pulse Ox 98 03/23/25 13:04 Oxygen Delivery Method Room Air 03/23/25 13:04 BMI result Body Mass Index 25.1 Results Reviewed Results Reviewed: will review the EKG in the office Assessment & Plan Assessment & Plan (1) Chest pain: Code(s): R07.9 - Chest pain, unspecified Qualifiers: Chest pain type: unspecified Qualified Code(s): R07.9 - Chest pain, unspecified (2) Epigastric abdominal pain: Code(s): R10.13 - Epigastric pain Plan Most likely chronic angina vs GERD vs gastritis vs hiatal hernia EKG in the office plan - Referral to gastroenterology for further evaluation and potential endoscopy is planned. - Famotidine prescribed to manage symptoms, with dietary modifications advised to avoid spicy and acidic foods. - Reviewed ER notes - Continue ranolazine for management of chronic angina. - Cardiology follow-up is scheduled for April. - Advised the ER if pain continues or worsens, is aware what to watch for. - His is aware of what to do and wants to avoid the ER since they have had multiple visits Orders: Referrals Gastroenterology Referral R10.13 - Epigastric pain Medications: New famotidine 20 mg PO BID 60 tabs 0RF 30 days Coding Level of Care Code Est Pt Level 4 (43828) Diagnoses Chest pain, unspecified type R07.9 Chest pain type: unspecified Epigastric abdominal pain R10.13
== END 2025-03-23 16:11 | disposition home or self-care (01) ==
PROVIDERS: PCP Nurse Practitioner Family; Visit Provider Physician Assistant Medical
DX: R07.9 Chest pain, unspecified (principal); R10.13 Epigastric pain

== ENCOUNTER → 2025-03-23 12:52 | Outpatient (BNVA) | payer MEDICARE, SELFPAY | PROVIDERS: PCP Nurse Practitioner Family; Visit Provider Physician Assistant Medical | DX: R07.9 Chest pain, unspecified (principal); R10.13 Epigastric pain | CPT/HCPCS: 93005; 99212 ==

== ENCOUNTER 2025-03-29 12:15 | Outpatient (AMB) | payer MEDICARE, SELFPAY ==
--- NOTE | 2025-03-29 12:20 | A.OFFVIS_ITS ---
Vital Signs 03/29/25 12:20 03/29/25 12:34 Height 5 ft 11 in Weight 184 lb BMI 25.7 BP 114/65 Blood Pressure Location Lt brachial Lt brachial Position Sitting Sitting Pulse 63 Oxygen Delivery Method Room Air Intake Visit Reasons: chronic daily pain epigastric radiating to the sub Intake Note: Patient complex follow up for chronic daily Epigastric pain radiating to the substernal region./ Britany landry was 04/08/2022. Patient cc: daily upper epigastric pain and chest discomfort. Door To Door Fundraising Collector Required: No Accompanied by: Spouse Allergies Penicillins (PENICILLINS) Allergy (Intermediate, Verified 03/29/25 12:20) ITCHY RASH Medication List - Last Reconciled 03/29/25 by Renetta Armando CNP alendronate 70 mg PO QWEEK apixaban (Eliquis) 5 mg PO BID ascorbate calcium (vitamin C) 500 mg PO DAILY calcium carbonate 500 mg PO BID cholecalciferol (vitamin D3) 50 mcg (2 x 25 mcg (1,000 unit)) PO DAILY clopidogrel 75 mg PO BEDTIME dapsone 100 mg PO DAILY divalproex 500 mg PO BID dofetilide 250 mcg (2 x 125 mcg) PO DAILY@1500 empagliflozin (Jardiance) 10 mg PO DAILY ezetimibe 10 mg PO BEDTIME famotidine 20 mg PO BID 30 days isosorbide mononitrate ER 30 mg PO DAILY levothyroxine 200 mcg PO DAILY@0600 levothyroxine 50 mcg PO SuTuThSa@0600 lidocaine 4% (Lidocaine Pain Relief) 1 patch See Protocol transdermal DAILY lorazepam 0.5 mg (1/2 x 1 mg) PO TID 30 days mecobalamin (vitamin B12) 1,000 mcg PO DAILY 0 days metoprolol succinate ER 12.5 mg (1/4 x 50 mg) PO BEDTIME mirtazapine 7.5 mg PO BEDTIME 30 days modafinil 100 mg PO DAILY nitroglycerin (Nitrostat) 0.4 mg sublingual Q5M PRN 30 days pantoprazole 40 mg PO DAILY paroxetine HCl 30 mg (1.5 x 20 mg) PO QAM 30 days ranolazine ER 500 mg PO BID thiamine HCl (vitamin B1) 100 mg PO DAILY vitamins A,C,N-bdid-uaybjg 4,296 mcg-226 mg-90 mg (PreserVision AREDS) 1 cap PO BID HPI HPI chronic daily pain epigastric radiating to the sub: Details: Patient is a 74-year-old male with PMH of depression, PTSD, CAD, AFib on Eliquis, hypothyroidism, obstructive sleep apnea, hypertension. Last visit with WALESKA Rivera 04/08/2022 for pre colonoscopy screening. Patient is accompanied by his Angela. Patient presents for new consult for longstanding epigastric pain present for over 6 months, worsening in frequency to occurring nearly daily over the past 6 months. Pain is described as localized to the epigastric region, with no clear aggravating or relieving factors identified by patient. He denies associated nausea, vomiting, GI bleeding (no hematemesis, melena, hematochezia), or changes in bowel habits. He reports daily, complete bowel movements without difficulty. Relief noted since starting famotidine 20 mg BID two weeks ago, while prior prolonged use of pantoprazole did not yield significant improvement. Additional transient relief achieved with OTC antacids; nitroglycerin has not provided benefit during pain episodes. Multiple recent ER visits for symptom exacerbation prompted extensive cardiac workup, all negative except for known atrial fibrillation managed with an anticoagulant. Patient is followed by neurology for diagnosed encephalopathy of unclear etiology and is in long-term recovery from past ETOH abuse (over 10 years). Reports current daily cigar use, denies recent or ongoing alcohol/drug use. No personal/family hx of cancer. Patient denies: fever/chills, n/v, appetite changes, pyrosis, regurgitation, dysphasia, unintentional wt loss, ab pain or melena/hematochezia. Social hx: -ETOH use cessation 20 years ago -denies recreational drug use -daily cigar smoker - family hx as below -denies personal hx of CA -tolerated anesthesia in the past without difficulty. [facility] Medical History STEMI (ST elevation myocardial infarction) Fall Atrial fibrillation with RVR Respiratory failure Limbic encephalitis Hypotension History of blood transfusion Osteopenia Hyperparathyroidism Severe obstructive sleep apnea Hypothyroidism Familial hypocalciuric hypercalcemia Vitamin D deficiency HTN (hypertension) Carpal tunnel syndrome of left wrist Ischemic cardiomyopathy Left carpal tunnel syndrome PTSD (post-traumatic stress disorder) FÉLIX (obstructive sleep apnea) Pulmonary nodule Paroxysmal atrial fibrillation Depression CAD (coronary artery disease) Surgical History Hx of cataract Hx of total knee replacement History of AAA (abdominal aortic aneurysm) repair AICD (automatic cardioverter/defibrillator) present Hx of colonoscopy Hx of discectomy Hx of appendectomy Hx of tonsillectomy S/P CABG x 6 Family History Father CAD (coronary artery disease) Substance use disorder Mother CVA (cerebral vascular accident) Paternal Uncle Substance use disorder Other Mental health disorder Social History Household Members: Spouse Housing: House Are you a primary career services director to a significant other at home: No Do you presently have visiting nurse or other home services: No Alcohol intake: never Comment: aware of trip hazard Patient Tobacco Use Status: Current someday Tobacco user Tobacco use type: Cigar e-Cigarette/Vaping Use: Never Used Second Hand Smoke Exposure: No Substance Use Type: Marijuana Advance Directives Date on File: 07/27/21 service: No Current occupational status: retired Sexual orientation: Straight/Heterosexual Cognitive needs: No Hearing needs: No Vision needs: Yes Review of Systems Const Reports as per HPI ENT Reports as per HPI Card Reports as per HPI Resp Reports as per HPI GI Reports as per HPI Reports as per HPI Physical Exam Vital Signs: Last Vital Signs Pulse 63 03/29/25 12:34 BP 114/65 03/29/25 12:34 Oxygen Delivery Method Room Air 03/29/25 12:20 BMI result Body Mass Index 25.7 Const General: healthy appearing, no acute distress and well developed Nutritional Appearance: average body habitus Orientation/consciousness: patient oriented x3 HEENT Head: Yes normal to inspection, Yes normocephalic and Yes atraumatic Face and sinus: Yes normal facial exam Eyes General: appearance normal, both eyes and all related structures Neck Neck: Yes normal visual inspection Resp Effort & Inspection: normal respiratory effort, able to speak in complete sentences, no tracheal deviation and symmetric chest movement Auscultation: clear to auscultation bilaterally Cardio Jugular venous distension: no JVD Rate: regular rate Rhythm: regular rhythm Heart sounds: S1 normal heart sound present, S2 normal heart sound present, no gallops and no murmurs GI Inspection: Yes normal to inspection and No distended Palpation (GI): Soft to palpation, not firm, nontender and No hepatosplenomegaly present Auscultation: normal bowel sounds Neuro General: patient oriented x3 Gait exam (Neuro): Normal gait present Psych Appearance: grossly normal Mental Status: mental status grossly normal Speech and movement: Normal speech and movement present Affect: normal affect Attitude: cooperative Thought process: Normal thought process present Thought content: Normal thought content present Insight: Good insight present (Psych) Judgement: Good judgement present (Psych) Assessment & Plan Assessment & Plan (1) Epigastric pain: Code(s): R10.13 - Epigastric pain Category: Medical Plan: Chronic, daily epigastric pain, not cardiac in etiology, responding to famotidine and antacids, negative for alarm symptoms, no GI bleeding, bowel habits normal. Additional Testing: Upper GI series (to evaluate for hiatal hernia/structural changes), EGD (to assess for mucosal disease, PUD, or malignancy). Cardiac clearance and delio-procedural anticoagulation guidance from cardiology prior to EGD. Medication Management: Continue famotidine 20 mg BID. No need for refill or changes currently. Pantoprazole ineffective. Lifestyle Recommendations: Maintain upright posture after meals, avoid over eating, reduce or eliminate sugars, spicy, fatty, greasy foods, carbonation, caffeine; strong encouragement for smoking cessation. Follow-Up: After completion of upper GI series and EGD; reassess for symptom changes and to review test results. (2) H/O alcohol abuse: Code(s): F10.11 - Alcohol abuse, in remission Category: Medical Plan: Encephalopathy of unclear cause, significant history of alcohol use (remote), daily cigar use, normal LFTs per October 2024 labs. Additional Testing: Liver US, hepatic labs (LFTs, hepatitis serologies, HIV, PT, ferritin) to further assess for hepatic pathology. Medication Management: None initiated, pending results of further workup. Lifestyle Recommendations: Continue to abstain from ETOH; counseling for tobacco cessation. Follow-Up: Review of hepatic workup results; coordinate with neurology as needed. (3) Screening for colon cancer: Comment: Multiple comorbid Code(s): Z12.11 - Encounter for screening for malignant neoplasm of colon Category: Medical Plan: Encouraged to complete Cologuard, kit at home. Recommended calling companying for detailed instructions and to ensure box is not . Plan Follow-up after UGI or sooner as needed Time: I spent a total of 45 minutes on the date of encounter which includes: Preparing to see the patient (reviewed previous documentation, test results and medical history) Performing a medically appropriate exam and/or evaluation Ordering medications, tests, and procedures Documenting clinical information in the health record Orders: Orders Prothrombin Time INR Today F10.11 - Alcohol abuse, in remission Hepatitis A,B,C Profile Today F10.11 - Alcohol abuse, in remission Hepatitis A IgG Today F10.11 - Alcohol abuse, in remission Ferritin Today F10.91 - Alcohol use, unspecified, in remission US abdomen complete Today F10.11 - Alcohol abuse, in remission, R10.13 - Epigastric pain FL upper GI small bowel Today F10.11 - Alcohol abuse, in remission, K21.9 - Gastro-esophageal reflux disease without esophagitis, R10.13 - Epigastric pain Coding Level of Care Code New Pt New Pt Level 4 (60724) Patient Type New Diagnoses Epigastric pain R10.13 H/O alcohol abuse F10.11 Screening for colon cancer Z12.11
[2025-03-29 12:34] VITALS: BP 114/65; PULSE 63; BMI 25.7
--- OUTSIDE RECORDS SUMMARY | 2025-03-29 15:54 | XMS_ITS | Encounter Summary ---
Author Organization [facility] Address [address] [place] [address] [place] [address] Phone Care Team Providers Care Utilities Manager Name Role Phone Mamadou Loving DO Primary Care Provider [phone] Seymour Ferris DRAIN TILE PRESS OPERATOR Unavailable Tony Miranda MD Unavailable eKyla Melton Unavailable [email or web address] Jamie Soto MD Unavailable Mamadou Loving DO Unavailable Roger Jorgensen DRAIN TILE PRESS OPERATOR Unavailable Rinku Carrizales MD Unavailable [phone] Ezra Denney NP Primary Care Provider + Encounter Details Date Type Department Care Team (Latest Contact Info) Description 07/10/2017 Ancillary [facility] [address] 3rd Floor, [address] [place], [place] [phone] Rinku Carrizales MD [address] [address] [email or web address] Cardiomyopathy, unspecified type Social History Tobacco Use [...] Info) Description 08/24/2024 Procedure Pass [facility] [address] [place] [address] 04/18/2025 11:45 AM EST Office Visit [facility] [address] [place] [address] [address]rd Floor, [address] [place] [address] Tony Sargent, [address] [place] [address] [email or web address] 08/24/2025 11:15 AM EDT Appointment Echo Lab [address] [place] [address] Tony Sargent, [address] [place] [address] documented as of this encounter Results * DEVICE CHECK: ICD IN-PERSON PROGRAMMING?? SINGLE LEAD (07/10/2017 2:29 PM EST) Narrative Ramón Ribeiro MD, MPH - 08/01/2017 2:36 PM EDT Reason for appointment: In-office ICD interrogation HPI: Routine in-office ICD interrogation. No device related complaints. Indication for device:Cardiomyopathy Examination: Device type: ICD Slab Stripper: Medtronic Mode: VVI LR/UP: 40/- bpm Thresholds, impedances, and sensing stable. Mode switches: 0 High V rates: 0 Ventricular pacin% Battery: 8.9 yrs Changes: Decreased output to 3V from 4V for >2:1 safety margin and increased battery life RA RV LV Sensing 5.3mV Threshold 1.25V@.4ms Impedance 418 Normal device function. Patient to follow-up for in-office check in: 6 months us Rinku N Porway MD [facility] ORDERABLES Final Result documented in this encounter Visit Diagnoses Diagnosis Diagnosis unknown Cardiomyopathy, unspecified type Cardiomyopathy, unspecified type documented in this encounter Care Teams Utilities Manager Relationship Specialty Start Date End Date Mamadou Loving DO [address] [place] [address] PCP - General 02/20/17 07/06/19 zEra Denney NP [address] [facility] [place] [address] PCP - General Family Medicine 07/07/19 Seymour Ferris NP [address] [address] Historical LMR Provider 02/20/1705/12/21 Tony Miranda MD [address] [address] [email or web address] Historical LMR Provider 02/20/17 Keyla Melton PA Historical LMR Provider 02/20/17 05/12/21 Jamie Soto MD [address] [place] [address] [email or web address] Historical LMR Provider 02/20/17 Mamadou Loving DO [address] [place] [address] Historical LMR Provider 02/20/17 Roger Jorgensen NP [address] [place] [address] Historical LMR Provider 02/20/1705/12/ 2 Rinku Carrizales MD [address] [place] [address] [email or web address] Historical LMR Provider 02/20/17 documented as of this encounter Additional Source Comments The information contained in this document represents components of the legal health record. It is not the complete legal health record.[facility]
--- OUTSIDE RECORDS SUMMARY | 2025-03-29 15:55 | XMS_ITS | Encounter Summary ---
Author Organization [facility] Address [address] [place] [address] Phone Care Team Providers Care Labor Conciliator Name Role Phone Mamadou Loving DO Primary Care Provider [phone] Seymour Ferris STEM FRAZER Unavailable Tony Miranda MD Unavailable Keyla Melton Unavailable [email or web address] Jamie Soto MD Unavailable [phone] Mamadou Loving DO Unavailable Roger Jorgensen STEM FRAZER Unavailable Rinku Carrizales MD Unavailable [phone] Ezra Denney NP Primary Care Provider + Encounter Details Date Type Department Care Team (Late st Contact Info) Description 02/22/2017 Ancillary [facility] [address] [place] [address] Tony Miranda MD [address] [place] [address] [place] [address] [email or web address] Social History Tobacco Use Types Packs/Day Years [...] Description 08/24/2024 Procedure Pass [facility] [address] [place] [address] 04/18/2025 11:45 AM EST Office Visit [facility] [address] [place] [address] [address]rd Floor, [address] [place] [address] Tony Sargent, DO [address] [place] [address] 08/24/2025 11:15 AM EDT Appointment [facility] [address] [place] [address] Tony Sargent DO [address] [place] [address] [place] [address] documented as of this encounter Visit Diagnoses Not on filedocumented in this encounter Care Teams Labor Conciliator Relationship Specialty Start Date End Date Mamadou Loving DO [address] [place] [address] PCP - General 02/20/17 07/06/19 Ezra Denney NP [address] [facility] [address] PCP - General Family Medicine 07/07/19 Seymour Ferris NP [address] [place] [address] Historical LMR Provider 02/20/1705/12/21 Tony Miranda MD [address] [place] [address] [email or web address] Historical LMR Provider 02/20/17 Keyla Melton PA Historical LMR Provider 02/20/17 05/12/21 Jamie Soto MD [address] [place] [address] [address] [place] [address] [email or web address] Historical LMR Provider 02/20/17 Mamadou Loving DO [address] [place] [address] Historical LMR Provider 02/20/17 Roger Jorgensen NP [address] [place] [address] [address] [place] [id number] Historical LMR Provider 02/20/17 2 Rinku Carrizales MD [address] [place] [address] [email or web address] Historical LMR Provider 02/20/17 documented as of this encounter Additional Source Comments The information contained in this document represents components of the legal health record. It is not the complete legal health record.[facility]
--- OUTSIDE RECORDS SUMMARY | 2025-03-29 15:55 | XMS_ITS | Encounter Summary ---
Author Organization [facility] Address [address] [place] [address] Care Team Providers Care Law Office Assistant Name Role Phone Ezra Denney NACHO Primary Care Provider [phone] Encounter Details Date Type Department Care Team (Late Contact Info) Description 05/31/2024 Lab Requisition [facility] [address] [place] [facility] [place] [address] Eugene Wilson MD [address] [place] [address] Encounter for other general examination Social History [...] 07/18/2025 11:00 AM EDT Office Visit Endocrinology [address] [address] Colin Martinez MD [address] [place] [address] documented as of this encounter Procedures Procedure [...] Hold for add-ons. 05/31/2024 10:[address] [facility] Comment:Auto resulted. Blood Venous blood specimen / Unknown 05/31/2024 6:21 AM EST 05/31/2024 8:39 AM EST us Eugene Wilson MD LAB BLOOD ORDERABLES Final Res ult [facility] [address] [place] [address], * CBC auto differential (05/31/2024 6:21 AM EST) WBC 6.6 4.8 - 10.8 K/mcL LAB HEMETOLOGY METHOD 05/31/2024 11:[address] [facility] RBC 4.60 4.50 - 5.50 M/mcL LAB HEMETOLOGY METHOD 05/31/2024 11:19 AM [facility] Hemoglobin 13.7 13.5 - 17.5 g/dL LAB HEMETOLOGY METHOD 05/31/2024 11:19 AM [facility] Hematocrit 42.2 42.0 - 54.0 % LAB HEMETOLOGY METHOD 05/31/2024 11:19 AM [facility] MCV 92.1 79.0 - 98.0 FL LAB HEMETOLOGY METHOD 05/31/2024 11:19 AM [facility] MCH 29.9 27.0 - 32.0 pcg LAB HEMETOLOGY METHOD 05/31/2024 11:19 AM [facility] MCHC 32.5 32.0 - 37.0 g/dL LAB HEMETOLOGY METHOD 05/31/2024 11:19 AM [facility] RDW 14.5 11.0 - 15.0 % LAB HEMETOLOGY METHOD 05/31/2024 11:19 AM [facility] Platelets 190 130 - 400 K/mcL LAB HEMETOLOGY METHOD 05/31/2024 11:19 AM [facility] MPV 11.0 7.0 - 11.0 FL LAB HEMETOLOGY METHOD 05/31/2024 11:19 AM [facility] NRBC 0.0 <1.0 % LAB HEMETOLOGY METHOD 05/31/2024 11:19 AM [facility] NRBC Absolute 0.00 <0.10 K/mcL LAB HEMETOLOGY METHOD 05/31/2024 11:19 AM [facility] Neutrophils Relative 57.9 % LAB HEMETOLOGY METHOD 05/31/2024 11:19 AM [facility] Lymphocytes Relative 28.5 % LAB HEMETOLOGY METHOD 05/31/2024 11:19 AM [facility] Monocytes Relative 10.3 % LAB HEMETOLOGY METHOD 05/31/2024 11:19 AM [facility] Eosinophils Relative 2.4 % LAB HEMETOLOGY METHOD 05/31/2024 11:19 AM [facility] Basophils Relative 0.6 % LAB HEMETOLOGY METHOD 05/31/2024 11:19 AM [facility] Immature Granulocytes Relative 0.3 % LAB HEMETOLOGY METHOD 05/31/2024 11:[address] [facility] Neutrophils Absolute 3.83 1.50 - 7.00 K/mcL LAB HEMETOLOGY METHOD 05/31/2024 11:[address] [facility] Lymphocytes Absolute 1.89 1.00 - 5.00 K/mcL LAB HEMETOLOGY METHOD 05/31/2024 11:[address] [facility] Monocytes Absolute 0.68 0.20 - 1.00 K/mcL LAB HEMETOLOGY METHOD 05/31/2024 11:[address] [facility] Eosinophils Absolute 0.16 0.00 - 0.50 K/mcL LAB HEMETOLOGY METHOD 05/31/2024 11:[address] [facility] Basophils Absolute 0.04 0.00 - 0.20 K/mcL LAB HEMETOLOGY METHOD 05/31/2024 11:19 AM [facility] Immature Granulocytes Absolute 0.02 0.00 - 0.03 K/mcL LAB HEMETOLOGY METHOD 05/31/2024 11:[address] [facility] Blood Venous blood specimen / Unknown Venipuncture / Unknown 05/31/2024 6:21 AM EST 05/31/2024 7:59 AM EST us Eugene Wilson MD LAB BLOOD ORDERABLES Final Res ult [facility] [address] [place] [address], * Magnesium (05/31/2024 6:21 AM EST) Magnesium 2.2 1.9 - 2.6 mg/dL LAB CHEMISTRY METHOD 05/31/2024 9:[address] [facility] Blood Venous blood specimen / Unknown Venipuncture / Unknown 05/31/2024 6:21 AM EST 05/31/2024 7:59 AM EST us Eugene Wilson MD LAB BLOOD ORDERABLES Final Res ult Performing Organization Address [facility]/ZIP Co de Phone Number [facility] [address] [place] [address], [place] [phone] * (ABNORMAL) Valproic acid level, total (05/31/2024 6:21 AM EST) [facility] Valproic Acid, Total 34(L) 50 - 100 mcg/mL LAB CHEMISTRY METHOD 05/31/2024 9:[address] [facility] Blood Venous blood specimen / Unknown Venipuncture / Unknown 05/31/2024 6:21 AM EST 05/31/2024 7:59 AM EST us Eugene Wilson MD LAB BLOOD ORDERABLES Final Res ult Performing Organization Address [facility] Co de Phone Number [facility] [address] [place] [address], [place] [phone] * (ABNORMAL) Comprehensive metabolic panel (05/31/2024 6:21 AM EST) [facility] Sodium 144 133 - 145 mmol/L LAB CHEMISTRY METHOD 05/31/2024 9:29 AM [facility] Potassium 3.6 3.5 - 5.5 mmol/L LAB CHEMISTRY METHOD 05/31/2024 9:29 AM [facility] Chloride 117(H) 96 - 110 mmol/L LAB CHEMISTRY METHOD 05/31/2024 9:29 AM [facility] CO2 22 21 - 32 mmol/L LAB CHEMISTRY METHOD 05/31/2024 9:29 AM [facility] Anion Gap 5 3 - 11 LAB CHEMISTRY METHOD 05/31/2024 9:29 AM [facility] Glucose 76 70 - 100 mg/dL LAB CHEMISTRY METHOD 05/31/2024 9:29 AM [facility] BUN 12 5 - 25 mg/dL LAB CHEMISTRY METHOD 05/31/2024 9:29 AM [facility] Creatinine 0.86 0.70 - 1.30 mg/dL LAB CHEMISTRY METHOD 05/31/2024 9:29 AM [facility] eGFR 90 >=60 mL/min/1. 73m2 LAB CHEMISTRY METHOD 05/31/2024 9:29 AM [facility] Comment:Calculation based on the Chronic Kidney Disease Epidemiology Collaboration (CKD-EPI) equation refit without adjustment for race. BUN/Creatinine Ratio 14.0 LAB CHEMISTRY METHOD 05/31/2024 9:29 AM [facility] Calcium 9.2 8.5 - 10.5 mg/dL LAB CHEMISTRY METHOD 05/31/2024 9:29 AM [facility] AST (SGOT) 10 10 - 42 unit/L LAB CHEMISTRY METHOD 05/31/2024 9:29 AM [facility] ALT (SGPT) 15 10 - 60 unit/L LAB CHEMISTRY METHOD 05/31/2024 9:29 AM [facility] Alkaline Phosphatase 75 42 - 121 unit/L LAB CHEMISTRY METHOD 05/31/2024 9:29 AM [facility] Total Protein 5.6(L) 6.0 - 8.0 g/dL LAB CHEMISTRY METHOD 05/31/2024 9:29 AM [facility] Albumin 3.1(L) 3.2 - 5.0 g/dL LAB CHEMISTRY METHOD 05/31/2024 9:29 AM [facility] Total Bilirubin 0.6 0.0 - 1.4 mg/dL LAB CHEMISTRY METHOD 05/31/2024 9:29 AM [facility] Blood Venous blood specimen / Unknown Venipuncture / Unknown 05/31/2024 6:21 AM EST 05/31/2024 7:59 AM EST us Eugene Wilson MD LAB BLOOD ORDERABLES Final Res ult [facility] [address] [place] [address], documented in this encounter Visit Diagnoses Diagnosis Encounter for other general examination documented in this encounter Care Teams Law Office Assistant Relationship Specialty Start Date End Date Ezra Denney NP [address] [place], [place] PCP - General 06/24/23 documented as of this encounter
--- OUTSIDE RECORDS SUMMARY | 2025-03-29 15:55 | XMS_ITS | Encounter Summary ---
Author Organization [facility] Address [address] [place] [address] [place] [address] Phone Care Team Providers Care Ramp Supervisor Name Role Phone Mamadou Loving DO Primary Care Provider [phone] Seymour Ferris BACTERIOLOGIST PHARMACEUTICAL Unavailable Tony Miranda MD Unavailable Keyla Melton Unavailable [email or web address] Jamie Soto MD Unavailable Mamadou Loving DO Unavailable Roger Jorgensen BACTERIOLOGIST PHARMACEUTICAL Unavailable Rinku Carrizales MD Unavailable [phone] Ezra Denney NP Primary Care Provider + Encounter Details Date Type Department Care Team (Latest Contact Info) Description 02/22/2017 Ancillary Orders [facility] [address] [facility] 3rd Floor, [address] [place], [place] [phone] Rinku Carrizales MD [address] [address] [email or web address] Diagnosis unknown Social History Tobacco Use Types [...] Info) Description 08/24/2024 Procedure Pass Echo Lab [address] [place] [address] 04/18/2025 11:45 AM EST Office Visit [facility] [address] [place] [address] 3rd Floor, [address] [place] [address] [address] Sargent [address] [address] 08/24/2025 11:15 AM EDT Appointment Echo Lab [address] [place] [address] Tony Sargent [address] [place] [address] documented as of this encounter Visit Diagnoses Diagnosis Diagnosis unknown documented in this encounter Care Teams Ramp Supervisor Relationship Specialty Start Date End Date Mamadou Loving DO [address] [place] [address] PCP - General 02/20/17 07/06/19 Ezra Denney NP [address] [facility] [address] PCP - General Family Medicine 07/07/19 Seymour Ferris NP [address] [place] [address] Historical LMR Provider 02/20/1705/12/21 Tony Miranda MD [address] [place] [address] [email or web address] Historical LMR Provider 02/20/17 Keyla Melton PA Historical LMR Provider 02/20/17 05/12/21 Jamie Soto MD [address] [place] [address] [address] [place] [address] [email or web address] Historical LMR Provider 02/20/17 Mamadou Loving DO [address] [place] [address] Historical LMR Provider 02/20/17 Roger Jorgensen NP [address] [place] [address] 2[address] [place] [phone] Historical LMR Provider 02/20/17 2 Rinku Carrizales MD [address] [place] [address] [email or web address] Historical LMR Provider 02/20/17 documented as of this encounter Additional Source Comments The information contained in this document represents components of the legal health record. It is not the complete legal health record.[facility]
--- OUTSIDE RECORDS SUMMARY | 2025-03-29 15:55 | XMS_ITS | Encounter Summary ---
Author Organization [facility] Address [address] [place] [address] Care Team Providers Care Corporate Legal Manager Name Role Phone Ezra Denney NACHO Primary Care Provider Encounter Details Date Type Department Care Team (Late Contact Info) Description 06/07/2024 Lab Requisition [facility] - Main Lab [address] [facility] [place] [address] Eugene Wilson MD [address] [place] [address] Encounter for other general examination Social History [...] 07/18/2025 11:00 AM EDT Office Visit Endocrinology [address] [address] Colin Martinez MD [address] [place] [address] documented as of this encounter Procedures Procedure Name Priority Date/Time Associated Diagnosis Comments COMPLETE BLOOD COUNT Routine 06/07/2024 7:01 AM EST Encounter for other general examination BASIC METABOLIC PANEL Routine 06/07/2024 7:01 AM EST Encounter for other general examination documented in this encounter Results * Complete blood count (06/07/2024 7:01 AM EST) [facility] Signature WBC 6.1 4.8 - 10.8 K/mcL LAB HEMETOLOGY METHOD 06/07/2024 10:40 AM [facility] RBC 4.60 4.50 - 5.50 M/mcL LAB HEMETOLOGY METHOD 06/07/2024 10:40 AM [facility] Hemoglobin 13.9 13.5 - 17.5 g/dL LAB HEMETOLOGY METHOD 06/07/2024 10:40 AM [facility] Hematocrit 43.1 42.0 - 54.0 % LAB HEMETOLOGY METHOD 06/07/2024 10:40 AM [facility] MCV 93.7 79.0 - 98.0 FL LAB HEMETOLOGY METHOD 06/07/2024 10:40 AM [facility] MCH 30.2 27.0 - 32.0 pcg LAB HEMETOLOGY METHOD 06/07/2024 10:40 AM [facility] MCHC 32.3 32.0 - 37.0 g/dL LAB HEMETOLOGY METHOD 06/07/2024 10:40 AM [facility] RDW 14.6 11.0 - 15.0 % LAB HEMETOLOGY METHOD 06/07/2024 10:40 AM [facility] Platelets 187 130 - 400 K/mcL LAB HEMETOLOGY METHOD 06/07/2024 10:40 AM [facility] MPV 10.9 7.0 - 11.0 FL LAB HEMETOLOGY METHOD 06/07/2024 10:40 AM [facility] NRBC 0.0 <1.0 % LAB HEMETOLOGY METHOD 06/07/2024 10:40 AM [facility] NRBC Absolute 0.00 <0.10 K/mcL LAB HEMETOLOGY METHOD 06/07/2024 10:40 AM [facility] Blood Venous blood specimen / Unknown Venipuncture / Unknown 06/07/2024 7:01 AM EST 06/07/2024 9:23 AM EST us Eugene Wilson MD LAB BLOOD ORDERABLES Final Res ult [facility] [address] [place] [address], * (ABNORMAL) Basic metabolic panel (06/07/2024 7:01 AM EST) Sodium 142 133 - 145 mmol/L LAB CHEMISTRY METHOD 06/07/2024 11:08 AM [facility] Potassium 4.0 3.5 - 5.5 mmol/L LAB CHEMISTRY METHOD 06/07/2024 11:08 AM [facility] Chloride 107 96 - 110 mmol/L LAB CHEMISTRY METHOD 06/07/2024 11:08 AM [facility] CO2 28 21 - 32 [...] LAB CHEMISTRY METHOD 06/07/2024 11:08 AM EST [facility] Calcium 9.1 8.5 - 10.5 mg/dL LAB CHEMISTRY METHOD 06/07/2024 11:08 AM EST [facility] Blood Venous blood specimen / Unknown Venipuncture / Unknown 06/07/2024 7:01 AM EST 06/07/2024 9:23 AM EST us Eugene Wilson MD LAB BLOOD ORDERABLES Final Res ult [facility] [address] [place] [address], documented in this encounter Visit Diagnoses Diagnosis Encounter for other general examination documented in this encounter Care Teams Corporate Legal Manager Relationship Specialty Start Date End Date Ezra Denney NP [address], [place] PCP - General 06/24/23 documented as of this encounter
--- OUTSIDE RECORDS SUMMARY | 2025-03-29 15:55 | XMS_ITS | Encounter Summary ---
Author Organization [facility] Address [address] [place] [address] Phone Care Team Providers Care Shoe Cobbler Name Role Phone Mamadou Loving DO Primary Care Provider [phone] Seymour Ferris HEALTH TECHNICIAN Unavailable Tony Miranda MD Unavailable Keyla Melton Unavailable [email or web address] Jamie Soto MD Unavailable Mamadou Loving DO Unavailable Roger Jorgensen HEALTH TECHNICIAN Unavailable Rinku Carrizales MD Unavailable [phone] Ezra Denney NP Primary Care Provider + Encounter Details Date Type Department Care Team (Late st Contact Info) Description 02/22/2017 Ancillary [facility] [address] [place] [address] Rinku Carrizales MD [address] [place] [address] [email or web address] Social History Tobacco Use Types Packs/Day Years [...] Info) Description 08/24/2024 Procedure Pass Echo Lab [address] [place] [address] 04/18/2025 11:45 AM EST Office Visit [facility] [address] [place] [address] 3rd Floor, [address] [place] [address] Tony Sargent, [address] [address] 08/24/2025 11:15 AM EDT Appointment Echo Lab [address] [place] [address] Tony Sargent [address] [place] [address] documented as of this encounter Visit Diagnoses Not on filedocumented in this encounter Care Teams Shoe Cobbler Relationship Specialty Start Date End Date Mamadou Loving DO [address] [place] [address] PCP - General 02/20/17 07/06/19 Ezra Denney NP [address] [place] [address] PCP - General Family Medicine 07/07/19 Seymour Ferris NP [address] [place] [address] Historical LMR Provider 02/20/1705/12/21 Tony Miranda MD [address] [place] [address] [email or web address] Historical LMR Provider 02/20/17 Keyla Melton PA Historical LMR Provider 02/20/17 05/12/21 Jamie Soto MD [address] [facility] 301 [place] [address] [email or web address] Historical LMR Provider 02/20/17 Mamadou Loving DO [address] [place] [address] Historical LMR Provider 02/20/17 Roger Jorgensen NP [address] [place] [address] [address] [place] [address] Historical LMR Provider 02/20/17 2 Rinku Carrizales MD [address] [place] [address] [email or web address] Historical LMR Provider 02/20/17 documented as of this encounter Additional Source Comments The information contained in this document represents components of the legal health record. It is not the complete legal health record.[facility]
--- OUTSIDE RECORDS SUMMARY | 2025-03-29 15:55 | XMS_ITS | Encounter Summary ---
Author Organization [facility] Address [address] [place] [address] Phone Care Team Providers Care Electrodynamicist Name Role Phone Mamadou Loving DO Primary Care Provider [phone] Seymour Ferris MANAGER SUBWAY Unavailable Tony Miranda MD Unavailable Keyla Melton Unavailable [email or web address] Jamie Soto MD Unavailable Mamadou Loving DO Unavailable Roger Jorgensen MANAGER SUBWAY Unavailable Rinku Carrizales MD Unavailable [phone] Ezra Denney NP Primary Care Provider + Encounter Details Date Type Department Care Team (Late st Contact Info) Description 02/22/2017 Ancillary Orders Non-Invasive Cardiology [address] [place] [address] Tony Miranda MD [address] [place] [address] [email or web address] Diagnosis unknown Social History Tobacco Use [...] Info) Description 08/24/2024 Procedure Pass Echo Lab [address] [place] [address] 04/18/2025 11:45 AM EST Office Visit [facility] [address] [place] [address] 3rd Floor, [address] [place] [address] Tony Sargent [address] [address] [email or web address] 08/24/2025 11:15 AM EDT Appointment Echo Lab [address] [place] [address] Tony Sargent [address] [place] [address] [email or web address] documented as of this encounter Visit Diagnoses Diagnosis Diagnosis unknown documented in this encounter Care Teams Electrodynamicist Relationship Specialty Start Date End Date Mamadou Loving DO [address] [place] [address] PCP - General 02/20/17 07/06/19 Ezra Denney NP [address] [place] [address] PCP - General Family Medicine 07/07/19 Seymour Ferris NP [address] [place] [address] Historical LMR Provider 02/20/1705/12/21 Tony Miranda MD [address] [place] [address] [email or web address] Historical LMR Provider 02/20/17 Keyla Melton PA Historical LMR Provider 02/20/17 05/12/21 Jamie Soto MD [address] [address] [email or web address] Historical LMR Provider 02/20/17 Mamadou Loving DO [address] [place] [address] Historical LMR Provider 02/20/17 Roger Jorgensen NP [address] [place] [address] [address] [place] [phone] Historical LMR Provider 02/20/17 2 Rinku Carrizales MD [address] [place] [address] [email or web address] Historical LMR Provider 02/20/17 documented as of this encounter Additional Source Comments The information contained in this document represents components of the legal health record. It is not the complete legal health record.[facility]
--- OUTSIDE RECORDS SUMMARY | 2025-03-29 15:55 | XMS_ITS | Encounter Summary ---
Author Organization [facility] Address [address] [place] [address] [place] [address] Phone Care Team Providers Care Violent Crimes Detective Name Role Phone Tony Miranda MD Unavailable Jamie Soto MD Unavailable Rinku Carrizales MD Unavailable [phone] Ezra Denney NP Primary Care Provider + Encounter Details Date Type Department Care Team (Late st Contact Info) Description 01/27/2025 Procedure Pass [facility] Scan - [address] [address] Social History Tobacco Use Types Packs/Day Years [...] on file 08/31/2022 No 08/31/2022 No 08/31/2022 Food Answer Date Recorded Within the past 6 months we worried whether our food would run out before we got money to buy more. Never True 01/27/2025 Within the past 6 months the food we bought just didn't last and we didn't have enough money to get more. Never True Residential Stability Answer Date Recor ded What is your housing situation today? I have keri hughes 01/27/2025 How many times have you move d in the past 12 months? Zero (I did not move) 01/27/2025 Paying for Meds Answer Date Recorded Do you have trouble paying for medicines? No 01/27/2025 Paying Utility Bills Answer Date Record ed Do you have trouble paying your heating or elect ricity bill? No 01/27/2025 Transportation Answer Date Recorded Has the lack of transportati on kept you from medical appointments or from getting medications? No 01/27/2025 Digital Access Answer Date Recorded No 01/27/2025 Yes 01/27/2025 Do you have reliable internet access at home? Ye s 01/27/2025 Do you have a device (e.g., phone, tablet, computer) with a working camera? Yes 01/27/2025 Intimate Partner Violence Answer Date R ecorded Are you denied basic needs s uch as food, clothing, or medical care? No 01/27/2025 In the past 12 months have y ou been in a relationship with a person who hurts, threatens, or tries to control you? No 01/27/2025 Are you denied basic needs s uch as food, clothing, or medical care? No 01/27/2025 In the past 12 months have y ou been in a relationship with a person who hurts, threatens, or tries to control you? No 01/27/2025 Sex and Gender Information Value Date Recorded Sex Assigned at Male 02/18/2023 7:50 AM EDT Legal Sex Male 5:07 PM EST Gender Identity Male 02/18/2023 7:50 AM EDT Sexual Orientation Straight 02/18/2023 7: 50 AM EDT documented as of this encounter Functional Status * Calculated C-SSRS Risk Score (Lifetime/Recent) Answer Date of Assessment Author No Risk Indicated 01/27/2025 6:20 PM EDT Amna Mcdaniel, RN * [place] Suicide Severity Rating Scale (Screener/Recent Self-Report) Question Answer Date of Assessment Author 1. Wish to be (Past 1 Month) No 025 6:20 PM EDT Amna Poon, RN 2. Non-Specific Active Suici slime Thoughts (Past 1 Month) No 01/27/2025 6:20 PM EDT Amna Poon, RN 6. Suicidal Behavior (Lifetime) No 6:20 PM EDT Amna Poon, RN documented as of this encounter Plan of Treatment Upcoming Encounters Date Type Department Care Team (Late st Contact Info) Description 08/24/2024 Procedure Pass Echo Lab [address] [place] [address] 04/18/2025 11:45 AM EST Office Visit [facility] [address] [place] [address] 3rd Floor, [address] [place] [address] Tony Sargent [address] [address] 08/24/2025 11:15 AM EDT Appointment Echo Lab [address] [place] [address] Tony Sargent [address] [address] [email or web address] documented as of this encounter Visit Diagnoses Not on filedocumented in this encounter Care Teams Violent Crimes Detective Relationship Specialty Start Date End Date Ezra Denney NP [address] [facility] [place] [address] PCP - General Family Medicine 07/07/19 Tony Miranda MD [email or web address] Historical LMR Provider 02/20/17 Jamie Soto MD [address] [place] [address], [address] [address] [email or web address] Historical LMR Provider 02/20/17 Rinku Carrizales MD [address] [address] [email or web address] Historical LMR Provider 02/20/17 documented as of this encounter Additional Source Comments The information contained in this document represents components of the legal health record. It is not the complete legal health record.[facility]
--- OUTSIDE RECORDS SUMMARY | 2025-03-29 15:55 | XMS_ITS | Encounter Summary ---
Author Organization [facility] Address [address] [place] [address] Phone Care Team Providers Care Track Service Worker Name Role Phone Tony Miranda MD Unavailable Jamie Soto MD Unavailable [phone] Rinku Carrizales MD Unavailable [phone] Ezra Denney ACID WASHER OPERATOR Primary Care Provider + Encounter Details Date Type Department Care Team (Late st Contact Info) Description 09/25/2023 Procedure Pass Non-Invasive Cardiology [address] [place] [address] Social History Tobacco Use Types Packs/Day Years [...] Info) Description 08/24/2024 Procedure Pass Echo Lab [address] [place] [address] 04/18/2025 11:45 AM EST Office Visit [facility] [address] [place] [address] 3rd Floor, [address] [place] [address] Tony Sargent, DO [address] [place] [address] 08/24/2025 11:15 AM EDT Appointment Echo Lab [address] [place] [address] Tony Sargent, DO [address] [place] [address] documented as of this encounter Visit Diagnoses Not on filedocumented in this encounter Care Teams Track Service Worker Relationship Specialty Start Date End Date Ezra Denney NP [address] [place] [address] PCP - General Family Medicine 07/07/19 Tony Miranda MD [email or web address] Historical LMR Provider 02/20/17 Jamie Soto MD [address] [place] [address], [address] [address] [email or web address] Historical LMR Provider 02/20/17 Rinku Carrizales MD [address] [place] [address] [email or web address] Historical LMR Provider 02/20/17 documented as of this encounter Additional Source Comments The information contained in this document represents components of the legal health record. It is not the complete legal health record.[facility]
--- OUTSIDE RECORDS SUMMARY | 2025-03-29 15:55 | XMS_ITS | Encounter Summary ---
Author Organization [facility] Address [address] [place] [address] Phone Care Team Providers Care Popcorn Attendant Name Role Phone Mamadou Loving DO Primary Care Provider [phone] Seymour Ferris TACK COVERER Unavailable Tony Miranda MD Unavailable Keyla Melton Unavailable [email or web address] Jamie Soto MD Unavailable Mamadou Loving DO Unavailable Roger Jorgensen TACK COVERER Unavailable [phone] Rinku Carrizales MD Unavailable [phone] Ezra Denney NP Primary Care Provider + Encounter Details Date Type Department Care Team (Latest Contact Info) Description 04/08/2017 Ancillary Orders Non-Invasive Cardiology [address] [place] [id number] Tony Miranda MD [address] [place] [address] [email or web address] Ischemic cardiomyopathy Social History Tobacco [...] Info) Description 08/24/2024 Procedure Pass Echo Lab [address] [place] [address] 04/18/2025 11:45 AM EST Office Visit [facility] [address] [place] [address] 3rd Floor, [address] [place] [address] Tony Sargent, [address] [place] [address] [email or web address] 08/24/2025 11:15 AM EDT Appointment Echo Lab [address] [place] [address] Tony Sargent, [address] [place] [address] [email or web address] documented as of this encounter Results * DEVICE CHECK: ICD IN-HOME INTERROGATION (04/08/2017 11:28 AM EST) Narrative Tony Miranda MD - 04/08/2017 8:00 PM EST Reason for appointment: Remote ICD interrogation HPI: Routine 3 month remote ICD interrogation. No device related complaints. Indication for device ICM. Examination: Device type: ICD Union Organiser: ODETTE Thresholds, impedances, and sensing stable. Mode [...] disease documented in this encounter Care Teams Popcorn Attendant Relationship Specialty Start Date End Date Mamadou Loving DO [address] [place] [address] PCP - General 02/20/17 07/06/19 Ezra Denney, NACHO [address] [facility] [place] [address] PCP - General Family Medicine 07/07/19 Seymour Ferris, NACHO [facility] [address] [address] [email or web address] Historical LMR Provider 02/20/1705/12/21 Tony Miranda MD [address] [address] [email or web address] Historical LMR Provider 02/20/17 Keyla Melton PA Historical LMR Provider 02/20/17 05/12/21 Jamie Soto MD [address] [place] [address] [email or web address] Historical LMR Provider 02/20/17 Mamadou Loving DO [address] [place] [address] Historical LMR Provider 02/20/17 Roger Jorgensen, NACHO [address] [place] [address] [address] Historical LMR Provider 02/20/17 Rinku Bermudez MD [address] [address] [email or web address] Historical LMR Provider 02/20/17 documented as of this encounter Additional Source Comments The information contained in this document represents components of the legal health record. It is not the complete legal health record.[facility]
--- OUTSIDE RECORDS SUMMARY | 2025-03-29 15:55 | XMS_ITS | Encounter Summary ---
Author Organization [facility] Address [address] [place] [address] Phone Care Team Providers Care Tire Mold Tester Name Role Phone Tony Miranda MD Unavailable [phone] Jamie Soto MD Unavailable [phone] Rinku Carrizales MD Unavailable [phone] Ezra Denney FITNESS CENTER ATTENDANT Primary Care Provider + Encounter Details Date Type Department Care Team (Late st Contact Info) Description 03/05/2024 Procedure Pass Echo Lab [address] [place] [address] Social History Tobacco Use Types [...] Info) Description 08/24/2024 Procedure Pass Echo Lab [address] [place] [address] 04/18/2025 11:45 AM EST Office Visit [facility] [address] [place] [address] 3rd Floor, [address] [place] [address] Tony Sargent, DO [address] [place] [address] 08/24/2025 11:15 AM EDT Appointment Echo Lab [address] [place] [address] Tony Sargent, DO [address] [place] [address] documented as of this encounter Visit Diagnoses Not on filedocumented in this encounter Care Teams Tire Mold Tester Relationship Specialty Start Date End Date Ezra Denney NP [address] [facility] [place] [address] PCP - General Family Medicine 07/07/19 Tony Miranda MD [email or web address] Historical LMR Provider 02/20/17 Jamie Soto MD [address] [place] [address], [address] [address] [email or web address] Historical LMR Provider 02/20/17 Rinku Carrizales MD [address] [place] [address] [email or web address] Historical LMR Provider 02/20/17 documented as of this encounter Additional Source Comments The information contained in this document represents components of the legal health record. It is not the complete legal health record.[facility]
--- OUTSIDE RECORDS SUMMARY | 2025-03-29 15:55 | XMS_ITS | Encounter Summary ---
Author Organization [facility] Address [address] [place] [id number] Phone Care Team Providers Care Custom Frame Assembler Name Role Phone Tony Miranda MD Unavailable Jamie Soto MD Unavailable Rinku Carrizales MD Unavailable [phone] Ezra Denney NP Primary Care Provider + Encounter Details Date Type Department Care Team (Late st Contact Info) Description 04/16/2024 Transcribe Orders [facility] Specimen Processing [address] [place] [address] Ezra Denney, NACHO [facility] [place] [address] Social History Tobacco Use Types Packs/Day Years [...] Info) Description 08/24/2024 Procedure Pass [facility] [address] [place] [address] 04/18/2025 11:45 AM EST Office Visit [facility] [address] Floor, [address] [place] [id number] Tony Sargent [address] [address] 08/24/2025 11:15 AM EDT Appointment Echo Lab [address] [place] [address] Tony Sargent [address] [address] documented as of this encounter Visit Diagnoses Not on filedocumented in this encounter Care Teams Custom Frame Assembler Relationship Specialty Start Date End Date Ezra Denney NP [address] [place] [address] PCP - General Family Medicine 07/07/19 Tony Miranda MD [email or web address] Historical LMR Provider 02/20/17 Jamie Soto MD [address] [place] [address], [address] [address] [email or web address] Historical LMR Provider 02/20/17 Rinku Carrizales MD [address] [address] [email or web address] Historical LMR Provider 02/20/17 documented as of this encounter Additional Source Comments The information contained in this document represents components of the legal health record. It is not the complete legal health record.[facility]
--- OUTSIDE RECORDS SUMMARY | 2025-03-29 15:56 | XMS_ITS | Encounter Summary ---
Author Organization [facility] Address [address] [place] [address] Care Team Providers Care Gold Nib Grinder Name Role Phone Mamadou Loving Primary Care Provider [phone] Zackary Martinez MD Unavailable Encounter Details Date Type Department Care Team (Late st Contact Info) Description 03/31/2017 Scanned Document [facility] [place] [address] Marco Lopez MD [address] [address] Social History Tobacco Use Types Packs/Day Years [...] on filedocumented in this encounter Care Teams Gold Nib Grinder Relationship Specialty Start Date End Date Mamadou Loving [address] [place] [address] [place] [address] PCP - General Medicine Hospitalist 03/26/17 Zackary Martinez MD [address] [place] [address] [place] [address] Cardiovascular Disease 04/03/17 documented as of this encounter
--- OUTSIDE RECORDS SUMMARY | 2025-03-29 15:56 | XMS_ITS | Encounter Summary ---
Author Organization [facility] Address [address] [place] [address] Care Team Providers Care Technician Preventative Medicine Name Role Phone Mamadou Loving Primary Care Provider [phone] Zackary Martinez MD Unavailable Encounter Details Date Type Department Care Team (Late st Contact Info) Description 03/26/2017 Abstract [facility] Endovascular Surgery [place] [address] [place] [address] Trisha Vazquez, RN [address] [place] [address] Social History Tobacco Use Types Packs/Day Years [...] on filedocumented in this encounter Care Teams Technician Preventative Medicine Relationship Specialty Start Date End Date Mamadou Loving [address] [place] [address] [place] [address] PCP - General Medicine Hospitalist 03/26/17 Zackary Martinez MD [address] [place] [address] [place] [address] Cardiovascular Disease 04/03/17 documented as of this encounter
--- OUTSIDE RECORDS SUMMARY | 2025-03-29 15:56 | XMS_ITS | Clinical Summary ---
Author Organization [facility] Address [address] [place] [address] [place] [id number] Phone Care Team Providers Care Mathematics Department Chair Name Role Phone Tony Miranda MD Unavailable Jamie Soto MD Unavailable Rinku Carrizales MD Unavailable [phone] Ezra Denney REPAIRER GENERAL Primary Care Provider + Allergies Active Allergy Reactions Criticality Noted Date Comments Penicillins Hives Medium 03/26/2017 Penicillins - caused hives. Many years ago. Tolerated test dose and full dose of cefepime this admission (09/02/2018) and cefazolin (09/07/18), can use without restriction Tramadol Shortness Of Breath High 01/28/2018 Medications rosuvastatin (CRESTOR) 40 MG tablet Active ezetimibe (ZETIA) 10 mg tablet [...] 500 mg by mouth daily. Active vitamins A,C,Y-icdt-eyghe r (PRESERVISION AREDS) 14,320-226-200 cptt-qm-gymd Cap Take 1 capsule by mouth 2 (two) times a day with meals. Active JARDIANCE 10 mg tablet Take 10 mg by mouth every morning. 3 Active acetaminophen (TYLENOL) 325 mg tablet Take 2 tablets by mouth. 3 Active cyanocobalamin (VITAMIN B-12) 1,000 mcg/mL injection 3 Active levothyroxine (SYNTHROID,LEVOT HROID) 25 MCG tablet Take 50 mcg by mouth every morning. Active alendronate (FOSAMAX) 70 MG tablet Take 1 tablet (70 mg total) by mouth every 7 days. Take in the morning with a full glass of water, on an empty stomach, and do not take anything else by mouth or lie down for the next 30 min. 15 tablet 2 4 Active thiamine (VITAMIN B-1) 100 MG tablet Take 100 mg by mouth daily. Active clopidogrel (PLAVIX) 75 mg tabletIndication s:Medication refill TAKE 1 TABLET(75 MG) BY MOUTH EVERY NIGHT AT BEDTIME 90 tablet 3 4 Active metoprolol succinate (TOPROL-XL) 25 MG 24 hr tabletIndication s:Medication refill Take 0.5 tablets (12.5 mg total) by mouth daily. 45 tablet 3 5 Active Additional Information Patient taking differently: 25 mgOral Daily, Reported on 02/15/2025 calcium carbonate-vitami n D3 1,500 mg (600 mg elemental)-800 units Tab Take 1 tablet by mouth 2 (two) times a day with meals. 60 tablet 5 5 Active isosorbide mononitrate (IMDUR) 30 MG 24 hr tablet Take 60 mg by mouth daily. 5 Active ranolazine (RANEXA) 500 MG 12 hr tablet Take 500 mg by mouth 2 (two) times a day. Active mirtazapine (REMERON) 7.5 MG tablet Take 7.5 mg by mouth nightly at bedtime. Active cholecalciferol (VITAMIN D3) 25 MCG (1,000 unit) tablet Take 2 tablets by mouth every morning. 5 Active LORazepam (ATIVAN) 1 MG tablet TAKE 1/2 TABLET BY MOUTH THREE TIMES DAILY 5 Active memantine (NAMENDA) 5 MG tablet Take 1 tablet (5 mg total) by mouth 2 (two) times a day. 60 tablet 5 5 06/06/19 26 Active nitroglycerin (NITROSTAT) 0.4 MG SL tablet DISSOLVE 1 TABLET UNDER THE TONGUE EVERY 5 MINUTES NEEDED FOR CHEST PAIN MAY REPEAT 3 TIMES THEN CALL 911 IF NO RELIEF 25 tablet 1 5 Active modafiniL (PROVIGIL) 100 MG tabletIndication s:Autoimmune encephalitis Take 1 tablet (100 mg total) by mouth daily. 30 tablet 5 5 Active dofetilide (TIKOSYN) 250 MCG capsuleIndicatio ns:Medication refill TAKE 1 CAPSULE(250 MCG) BY MOUTH TWICE DAILY 180 capsule 3 5 Active Active Problems Problem Noted Date Diagnosed Date ICD (implantable cardioverter-defibrillator) in place 11/16/2024 Assessment & Plan (02/03/2025 2:25 PM EDT): Device interrogated today. 8.4 yr battery life. RA, RV, and LV sensing stable. RA and LV pacing stable. No episodes. AP 12% and LVP 95%. No parameter changes. Plan: Continue remote checks Follow-up on 04/18/25 Assessment & Plan (11/22/2024 11:19 AM EDT): Device interrogated today. 5.7 yr battery life. RV pacing and sensing stable. BED CONTROL SPECIALIST <1%. No episodes noted. No parameter changes. [...] a year. It was reported during visit [facility] hospitalization If no decent revascularization options on cardiac catheterization, may need to discuss with the EP whether a SUBSTITUTE CROSSING GUARD upgrade would be indicated for the patient [...] Plan (07/07/2024 1:02 PM EST): hospitalized at [facility] 05/22 through 05/30/2024 Status post mechanical [...] Plan (06/17/2024 5:16 PM EST): hospitalized at [facility] 05/22 through 05/30/2024 Status post mechanical [...] PM EDT): Being followed by neurology at [facility]. He is on high doses of [...] patient has been seen by neurology at [facility] and they have not been able to determine a cause for his symptoms. I wonder if his Paxil or trazodone are playing a role in his symptoms. I have suggested that the patient see another neurologist. I have sent a referral to Dr. Jacobs's office in [place]. Encounter for monitoring amiodarone therapy 12/03 Assessment & Plan (12/17/2021 11:52 AM EDT): We will check a hepatic panel and a TSH. History of difficult intubation 09/03/2018 Cardiac arrest 09/02/2018 CAD (coronary artery disease) 06/27/2018 Assessment & Plan (06/27/2018 1:34 AM EST): Discussed ELECTRONICS ENGINEERING MANAGER PCI of LAD and LCx as above. - CTA a/p and coronary CT - Schedule ELECTRONICS ENGINEERING MANAGER PCI afterwards - Start ranexa - Continue [...] Paroxysmal atrial fibrillation 01/28/2018 Assessment & Plan (02/03/2025 2:23 PM EDT): Pt is currently managed on dofetilide and Eliquis for CVA prophylaxis. SUBSTITUTE CROSSING GUARD-D shows no episodes of AF. Will continue current management and follow-up in April as scheduled. Plan: Continue dofetilide Continue Eliquis Assessment & Plan (12/15/2024 9:57 AM EDT): Asymptomatic and on Eliquis Assessment & Plan (11/22/2024 11:18 AM EDT): Pt is currently managed on Eliquis and dofetilide. Pt is tolerating these medications well. I recommend considering an atrial lead when implanting a SUBSTITUTE CROSSING GUARD-D to monitor AF burden. Plan: Continue Eliquis [...] paroxysmal atrial fibrillation. Amiodarone stopped while at [facility] due to absence of atrial fibrillation. Remains anticoagulated on Eliquis, currently denying palpitations. Assessment & Plan (11/03/2018 2:16 PM EDT): Had a history of paroxysmal atrial fibrillation. Amiodarone stopped while at [facility] due to absence of atrial fibrillation. Remains anticoagulated on Eliquis. Currently denies palpitations. Assessment & Plan (09/18/2018 10:04 AM EDT): Rhythm control and anticoagulation strategy on amiodarone 400 mg daily, metoprolol, and rivaroxaban WAIST FITTER. CHADSsVASC 4. - remains in SR and amiodarone stopped - no prior bleeding problems on ASA and rivaroxaban - he will need usp AC - switched to apixaban per PARVEEN [...] artery disease of b ypass graft of [place] heart with stable angina pectoris 04/09/2017 Overview [...] IMPELLA; EXPL R GROIN Assessment & Plan (02/03/2025 2:22 PM EDT): Cardiac cath on 10/20/24: LMCA: 100% distal occlusion LAD: Ostial 100% occlusion Circumflex: Proximal 100% occlusion RCA: Proximal chronic total occlusion. The vessel supplies atrial branch which supplies collaterals to distal circumflex and marginal branch Graft angiogram: HARTLEY to LAD: Tortuous graft which is patent. There is 90% stenosis in the distal LAD. There is retrograde filling of mid LAD to a large septal branch. There are septal collaterals to PDA. There are left to left collaterals from the diagonal to the marginal branch disease Saphenous graft to diagonal branch: Occluded Saphenous graft to marginal branch: Occluded Saphenous graft to rPDA: Occluded Diagnostic Summary 1. Unstable angina 2. Multivessel coronary artery disease 3. Patent HARTLEY to mid LAD 4. Occluded saphenous grafts to marginal, diagonal and rPDA 5. Normal LV filling pressures Diagnostic Recommendations 1. Risk factor modification 2. Optimize antianginal therapy Pt is currently on antianginal therapy with Ranexa and isosorbide. He also uses nitro PRN. Pt continues to epigastric pain that he describes as pressure. I recommended that he contact his PCP for a GI referral for an evaluation. Plan: Continue isosorbide Continue Ranexa Continue rosuvastatin Follow-up on 04/18/25 Assessment & Plan (12/15/2024 9:57 AM EDT): [...] 12:14 PM EDT): Patient has had multiple [facility] visits due to chest pain. [facility] cardiac cath on October 20, 2024-He recently a had cardiac cath procedure on 10/20/2024 which showed continued patency of HARTLEY-LAD and occluded [place] vessels and bypass grafts. It did not find targets for PCI. [facility] Diagnostic Recommendations: Medical therapy and/or counseling. Dr. Gómez consulted on patient's and it was reported if patient has no decent revascularization options on cardiac catheterization, may need to discuss with the EP whether a SUBSTITUTE CROSSING GUARD upgrade would be indicated for the patient in this context given baseline bradycardia and bifascicular block with wide QRS in light of underlying ischemic cardiomyopathy. I am going to have patient follow-up with EP in regards to this. Dr. Gómez also noted that patient may be someone who would be a candidate for enrollment in thecosira trial (coronary sinus learning designer) given his ongoing chest pain with no [...] emergency room visit back February 2024 at [facility] with chest discomfort. He did rule [...] drug-eluting stent x2 OM 2 SVG RCA 2004 Cath HARTLEY/SVG OM patent EF 25% 2008 Cath distal LAD worse EF 35 graft [...] (11/24/2018 1:21 PM EDT): Was recently at [facility] for stenting of totally occluded vessels. ELECTRONICS ENGINEERING MANAGER PCI was unsuccessful, mid LAD PCI successful. Procedure was comp gated by cardiac arrest, status post ICD shock x4, patient required intubation and Impella placement. Patient had prolonged stay of 6 weeks involving time in CCU. He completed rehab in [place] and did well. Currently denying chest pain [...] (11/03/2018 2:22 PM EDT): Was recently at [facility] for stenting of totally occluded vessels. ELECTRONICS ENGINEERING MANAGER PCI was unsuccessful, mid LAD PCI successful. Procedure complicated by cardiac arrest, status post ICD shock x4, patient intubated and Impella placed. Patient had prolonged stay of 6 weeks involving time in the the CCU. He has completed rehab in [facility] and did well. In the office no [...] 34%, CCS 3-4 angina/dyspnea, CTOs of all [place] vessels and SVG- RCA and SVG-OM. Stress test 08/26/18: large severe mixed defect AL reinoso & severe fixed defect INF and basal to mid IL wall. LVEF 34%. Admitted for RCA ELECTRONICS ENGINEERING MANAGER PCI and LAD PCI 09/02/18: Procedure c/b cardiac arrest, VF s/p ICD shock x 4, requiring intubation and Impella. ELECTRONICS ENGINEERING MANAGER PCI was unsuccessful, mid LAD PCI successful [...] triple Rx (ASA, Plavix, apixaban) until hospital [facility] then stop aspirin and continue PPI -- [...] be percutaneous options for approaching his anatomy. Angelo has not been better than he is right now. He is sober and his proBNP is now normal. He would at least like to meet with Dr. York to discuss his options so I will have a copy of this note forwarded to him. Assessment & Plan (03/12/2018 9:48 AM EST): Apparently there is an interventional list at [facility] who has contacted Angelo about proceeding with an attempt at PCI [...] have the films were reviewed at the [facility]. Ischemic cardiomyopathy 04/09/2017 Assessment & Plan (02/03/2025 2:23 PM EDT): SUBSTITUTE CROSSING GUARD-D in situ. Pt is on Jardiance, metoprolol. He is tolerating these medications well. No changes in management. Plan: Continue Jardiance Continue metoprolol Assessment & Plan (12/15/2024 9:57 AM EDT): [...] We discussed upgrading his device to a SUBSTITUTE CROSSING GUARD-D. We have discussed the r/b/a for implantation of a Chronic Resynchronization Therapy Defibrillator or SUBSTITUTE CROSSING GUARD-D. A SUBSTITUTE CROSSING GUARD device is used in patients with heart failure to potentially improve the overall pumping function and synchronization of the ventricles. This device is used in conjunction with GDMT as tolerated by the patient. Patients with heart failure may be at increased risk for fatal cardiac arrhythmias including ventricular tachycardia and ventricular fibrillation. A SUBSTITUTE CROSSING GUARD with defibrillator function will provide therapy for these life-threatening arrhythmias including an electrical discharge or defibrillation while also providing pacemaker function for potential improvement in ejection fraction and heart failure symptoms. The risks of implantation include bleeding, infection, perforation requiring emergency intervention, vascular injury, pericardial effusion, hemo/pneumothorax, stroke, cardiac arrest, or . The patient is made aware that SUBSTITUTE CROSSING GUARD implantation may not improve heart failure symptoms. The patient verbalized understanding of the information provided. The [place] Program for Patient Centered Decisions was utilized during this encounter. Plan: Continue metoprolol Continue Ranexa Continue rosuvastatin Continue clopidogrel Continue Imdur Continue Jardiance Continue Zetia Discontinue Entresto Schedule SUBSTITUTE CROSSING GUARD-D Assessment & Plan (11/16/2024 12:12 PM EDT): Most recent echo done at [facility] during hospitalization shows a EF of [...] surgery 30 years ago he was at [facility] with chest pain but was discharged [...] of 38%, NENA was stopped while at [facility]. We will start him on low-dose Entresto, [...] EDT): Controlled on metoprolol ER, lisinopril, furosemide WAIST FITTER. Probable sleep apnea and an outpt sleep study has been ordered in [place]. - his blood pressure remain well controlled [...] Overview (09/01/2018): s/p EVAR, bilateral ARCHIE stenting [facility] Dr. Lopez Assessment & Plan (08/24/2024 12:18 [...] Encounters Date Type Department Care Team Description 02/21/2025 Refill [facility] [address], [address] [place] [address] Tony Sargent, DO Medication Refill 02/15/2025 2:17 PM EDT - 02/15/2025 11:59 PM EDT Hospital Encounter [facility] Phleb [facility] [address] [place] [address] Radha Garcia MD Discharge Disposition: Home or Self Care 02/15/2025 1:00 PM EDT Office Visit [facility] Allergy [address], 4[address], [address] [place] [address] Radha Garcia MD Hypogammaglobulinemia (Primary Dx); Autoimmune encephalitis; Recurrent infections; CD4 T lymphopenia 02/15/2025 Orders Only [facility] Allergy [address], [address] [place] [address] Radha Garcia MD Research exam (Primary Dx) 02/08/2025 Orders Only [facility] [address], [address] [place] [address] Tanner Watkins MD 02/07/2025 Telephone [facility] Allergy [place] [address] [facility], 4th Floor, [address] [place] [address] Radha Garcia MD 02/03/2025 1:00 PM EDT Office Visit [facility] [address], [address] [place] [address] Traci Gallardo DNP Coronary artery disease of bypass graft of [place] heart with stable angina pectoris (Primary Dx); Paroxysmal atrial fibrillation; Ischemic cardiomyopathy; ICD (implantable cardioverter-defibrillator) in place 01/29/2025 Orders Only [facility] [address], [address] [place] [address] ProviderTanner MD 01/28/2025 Transcribe Orders [facility] [address], [address] [place] [address] Ezra Denney NP Sick sinus syndrome (Primary Dx) 01/27/2025 6:40 PM EDT - 01/27/2025 10:40 PM EDT Emergency [facility] [address] [place] [address] Raul Maddox MD Discharge Disposition: Home or Self Care 01/27/2025 Procedure Pass [facility], [facility] [address] [place] [address] 01/20/2025 Refill [facility] [address], [address] [place] [address] Traci Gallardo DNP Medication Refill 01/05/2025 Refill [facility] [address], [address] [place] [address] Macrina Fisher PA-C Medication Refill from Last 3 Months Immunizations Immunization Administration Dates Next Due 21-influenza Tiv (Im)i 02/15/2025(Deferred: Alisa ent Decision) COVID-19 (Pre-02/24) Moderna Vaccine, mRNA, PF 07/05/2020 INFLUENZA, SPLIT VIRUS, TRIVALENT PF 01/03/2015 Influenza High-Dose Quadriva lent Preservative Free IM 02/14/2020 Influenza High-Dose Trivalen t Preservative Free IM 03/05/2019,02/03/2017,02/15/2016 Influenza Quadrivalent w/ Pr eservative IM 01/26/2018 Pneumococcal conjugate PCV13 03/05/2019 Pneumococcal polysaccharide PPSV23 [...] your housing situation today? I have keri sing 01/27/2025 How many times have you move [...] Sign Reading Time Taken Comments Blood Pressure 120/65 02/15/2025 1:14 PM EDT Pulse 81 02/15/2025 1:14 PM EDT Temperature 36.6 C (97.8 F) 01/27/2025 10:39 PM EDT Respiratory Rate 18 01/27/2025 10:39 PM EDT Oxygen Saturation 97% 02/15/2025 1:14 PM EDT Inhaled Oxygen Concentration 60% 09/09/2018 4 :00 PM EDT Weight 85.7 kg (189 lb) 02/15/2025 1:14 PM EDT Height 177.8 cm (5' 10 ) 02/15/2025 1:14 PM EDT Body Mass Index 27.12 02/15/2025 1:14 PM EDT Plan of Treatment Upcoming Encounters Date Type Department Care Team (Late st Contact Info) Description 08/24/2024 Procedure Pass [facility] [place] [address] 04/18/2025 11:45 AM EST Office Visit [facility] [address], [address] [place] [address] Tony Sargent, DO [address] [address] 08/24/2025 11:15 AM EDT Appointment [facility] [place] [address] Tony Sargent, DO [address] [address] [email or web address] Health Maintenance Due Date Last Done Comments Adult Td,Tdap Booster 1950 ZOSTER VACCINES (1 of 2) 1998 DEPRESSION SCREENING 09/03/2019 09/02/2018 TSH LEVEL 12/17/2022 12/17/2021, 02/03, 06/11/2018, Additional history exists RSV VACCINE (1 - 1-dose 75+ series) 2023 COVID-19 VACCINE (2024- season) 2025 03/04/2022, 03/09/2021, 08/02/2020, Additional history exists BLOOD PRESSURE 08/16/2025 02/15/2025 CREATININE LEVEL 01/27/2026 01/27/2025, 02/2025, 04/12/2024, Additional history exists SMOKING Hx and SMOKELESS TOBACCO SCREENING 02/15/2026 02/15/2025 PNEUMOCOCCAL VACCINES (50+ years) Completed 11/22/2020, 03/05/2019, 02/15/2016, Additional history exists HEPATITIS C SCREENING Completed 10/12/2024 INFLUENZA VACCINE Completed 02/01/2025, , 02/14/2020, Additional history exists HEPATITIS A VACCINES Aged [...] this topic Medical Devices Implanted Type Area Early Childhood Education Coordinator Device Identifier Shelf Expiration Date Model / Serial / Lot Medtronic ICD Stent Drug Eluting [id number] [facility] - [id number] Implanted:Qty: 1 on 09/02/2018 by Alyssa York MD, PhD at [facility] Stent BIOTRONIK 02/13/2020 [id number] / / [id number] Procedures Procedure Name Priority Date/Time Associated Diagnosis Comments IMMUNOFIXATION Routine 02/15/2025 2:33 PM EDT CBC AND DIFFERENTIAL Routine 02/15/2025 2:33 PM EDT Hypogammaglobuline yuri Autoimmune encephalitis Recurrent infections FREE LIGHT CHAINS, SERUM Routine 025 2:33 PM EDT Hypogammaglobuline yuri Autoimmune encephalitis Recurrent infections SPEP PANEL Routine 02/15/2025 2:33 PM EDT Hypogammaglobuline yuri Autoimmune encephalitis Recurrent infections IMMUNODEFICIENCY PANEL Routine 2:33 PM EDT Hypogammaglobuline yuri Autoimmune encephalitis Recurrent infections LYMPHOCYTE PROLIFERATION ANTI-CD3 Routine 02/15/2025 2:33 PM EDT Hypogammaglobuline yuri Autoimmune encephalitis Recurrent infections Pneumococcus IgG antibody (23 serotypes) Routine 02/15/2025 2:33 PM EDT Hypogammaglobuline yuri Autoimmune encephalitis Recurrent infections Tetanus antitoxoid antibody, IgG Routine 02/15/2025 2:33 PM EDT Hypogammaglobuline yuri Autoimmune encephalitis Recurrent infections T SPOT TB TEST Routine 02/15/2025 2:33 PM EDT Hypogammaglobuline yuri Autoimmune encephalitis Recurrent infections CT CHEST WITH CONTRAST Routine 8:39 PM EDT LACTIC ACID (LACTATE) STAT 01/27/2025 7:46 PM EDT LFTS (HEPATIC PANEL) STAT 01/27/2025 7:46 PM EDT BASIC METABOLIC PANEL (BMP) STAT 01/27/2025 7:46 PM EDT CBC AND DIFFERENTIAL STAT 01/27/2025 7:46 PM EDT ECG 12-LEAD STAT 01/27/2025 7:05 PM EDT OUTSIDE EP STUDY Routine 01/20/2025 7:38 PM EDT HEPATITIS B SURFACE ANTIGEN Routine 10/12/2024 9:32 AM EDT TSH WITH REFLEX Routine 12/17/2021 11:58 AM EDT Encounter for monitoring amiodarone therapy from Last 3 Months or Most Recently Relevant to Health Maintenance Results * Lymphocyte proliferation anti-CD3 (02/15/2025 2:33 PM EDT) VIAB LYMPHS DAY 0 81.9 >=75 % [facility] [address] SOLUB ACD3 % CD45 70.1 >=19.4 % [facility] [address]UB ACD3 % CD3 79.7 >=20.3 % [facility] [address] SOLUB ACD28 % CD45 76.4 >=37.5 % [facility] [address] SOLUB ACD28 % CD3 84.2 >=44.6 % [facility] [address] SOLUB IL2 % CD45 76.6 >=41.7 % [facility] [address] SOLUB IL2 % CD3 82.9 >=46.2 % [facility] MED[facility] [address] LPA3P INTERP SEE NOTE [facility] Comment: (NOTE) Normal lymphocyte proliferative responses to soluble anti-CD3, anti-CD3 + anti-CD28 and anti-CD3 + IL-2. Reviewed by: Markus Solano M.D., D. Joel., D(ABMLI) ADDITIONAL INFORMATION Reference values implemented February 04, 2013. Data are expressed as % proliferating cells of total specific cell population. The % Day 0 viability of the sample was determined using a flow cytometry assay which includes individual assessment of viable, apoptotic and cells. This method differs from the commonly used method of trypan blue dye exclusion which only identifies cells, and counts apoptotic cells along with the viable cells, resulting in an apparent higher cell viability. However, apoptotic cells do not contribute to cell proliferation and therefore accurate measurement of only viable cells provides meaningful information on the cells involved in stimulation and proliferative response. Strongly recommend using critical ambient shipping boxes available through [facility] ([facility]) inventory to ensure optimal transport of critical samples used for functional cellular assays. This assay measures lymphocyte proliferative responses to an anti-CD3 panel. The stimulants include soluble anti-CD3 alone (3 titrations), soluble anti-CD3 + anti-CD28 (3 titrations) and soluble anti-CD3+ exogenous IL-2 (3 titrations). The maximal response to each stimulant is reported and includes % proliferation to both CD45+ total lymphocytes (equivalent of the response in the tritiated thymidine assay) and CD3+ T cells. Delta % proliferation is reported for each value after subtraction from media control. This test was developed using an analyte specific reagent. Its performance characteristics were determined by [facility] in a manner consistent with CLIA requirements. This test has not been cleared or approved by the U.S. Food and Drug Administration. LPA3P ACD3 COMMENT Test component not applicable or not reported. [facility] [address]Z 02/15/2025 2:33 PM EDT 02/15/2025 2:45 PM EDT us Radha Garcia MD LAB BLOOD ORDERABLES Final Re sult [facility] [address] [place] [address] * Immunofixation only (02/15/2025 2:33 PM EDT) IMMUNOFIXATION No M-compone nt detected. [facility] Comment:Performing Pathologi st, Jean-Pierre Goel M.D., Ph.D. [id number] 02/15/2025 2:33 PM EDT 02/15/2025 2:45 PM EDT us Radha Garcia MD LAB BLOOD BKR ORDERABLES Tiffany eugenie Result [facility] [address] [place] [address] * (ABNORMAL) Immunodeficiency Panel (02/15/2025 2:33 PM EDT) CD3+ (ABS) 997 474 - 1,600 /uL [facility] CD3+ (PCT) 80.0(H) 45.0 - 79.0 %Lymphs [facility] CD3+ CD4+ (ABS) 778 256 - 1,198 /uL [facility] CD3+ CD4+ (PCT) 62.4 26.0 - 64.0 %Lymphs [facility] CD3+ CD8+ (ABS) 189 86 - 556 /uL [facility] CD3+ CD8+ (PCT) 15.2 7.0 - 36.0 %Lymphs [facility] CD4-CD8-CD3+ (ABS) 21 6 - 214 Cells/uL [facility] CD4-CD8-CD3+ (PCT) 1.7 1 - 12 % [facility] CD3- CD19+ (ABS) <1(L) 79 - 472 /uL [facility] CD3- CD19+ (PCT) <0.1(L) 7.0 - 26.0 %Lymphs [facility] CD3-CD(16+56)+ (ABS) 237 41 - 531 /uL [facility] CD3-CD(16+56)+ (PCT) 19.0 4.0 - 36.0 %Lymphs [facility] CD27+CD19+ (ABS) <1(L) 14 - 123 Cells/uL [facility] CD27+CD19+ (PCT) <0.1(L) 9 - 62 % [facility] GjF-GzL-PW71+CD1 9+ (ABS) <1(L) 5 - 43 Cells/uL [facility] EbW-CyE-PM35+CD1 9+ (PCT) <0.1(L) 3 - 16 % [facility] CD45RA+CD4+ (ABS) 101 16 - 502 Cells/uL [facility] CD45RA+CD4+ (PCT) 12.9 6 - 57 % [facility] CD45RO+CD4+ (ABS) 494(H) 79 - 439 Cells/uL [facility] CD45RO+CD4+ (PCT) 63.4 20 - 81 % [facility] Transitional CD4+ T-Cells ABS 184 17 - 215 Cells/uL [facility] Transitional CD4+ T-Cells PCT 23.6 8 - 30 % [facility] CD45RA+CD8+ (ABS) 48 29 - 426 Cells/uL [facility] CD45RA+CD8+ (PCT) 25.2(L) 27 - 69 % [facility] CD45RO+CD8+ (ABS) 67 11 - 200 Cells/uL [facility] CD45RO+CD8+ (PCT) 35.4 13 - 57 % [facility] Transitional CD8+ T-Cells ABS 75 7 - 101 Cells/uL [facility] Transitional CD8+ T-Cells PCT 39.4(H) 8 - 38 % [facility] 02/15/2025 2:33 PM EDT 02/15/2025 2:45 PM EDT us Radha Garcia MD LAB BLOOD ORDERABLES Final Re sult Performing Organization Address City/State/[facility] Co de Phone Number [facility] [address] [place] [address] * (ABNORMAL) SPEP PANEL (02/15/2025 2:33 PM EDT) Total Protein 5.3(L) 6.0 - 8.3 g/dL [facility] IMMUNOGLOBULIN G 345(L) 614 - 1,295 mg/dL [facility] IgA 24(L) 69 - 309 mg/dL [facility] IMMUNOGLOBULIN M 8(L) 53 - 334 mg/dL [facility] SPEP Normal pattern, marked diffuse decrease in gamma globulin. [facility] Comment: Normal SPEP: Normal pattern Please see Immunofixation for final results. Performing Pathologist, Jean-Pierre Goel M.D., Ph.D. [phone] Serum protein electrophoresis results should be evaluated in the context of separately reported serum free light chain levels and ratio when these additional results are available. 02/15/2025 2:33 PM EDT 02/15/2025 2:45 PM EDT Radha Garcia MD LAB BLOOD BKR ORDERABLES Tiffany l Result [facility] [address] [place] [address] * T spot TB test (02/15/2025 2:33 PM EDT) [facility] T-SPOT.TB Negative Negative [facility] Comment: (NOTE) A negative test result does not exclude the possibility of exposure to or infection with Mycobacterium tuberculosis (M. tuberculosis). Patients with recent exposure to TB infected individuals exhibiting a negative T-SPOT.TB result should be considered for retesting within 6 weeks or if other relevant clinical symptoms indicate. Results from T-SPOT.TB testing must be used in conjunction with each individual's epidemiological history, current medical status, and results of other diagnostic evaluations. The T-SPOT.TB test is qualitative and results are reported as positive, borderline, or negative, given that the test controls perform as expected. In line with the Centers for Disease Control and Prevention's 2010 recommendation to report quantitative measurements alongside the qualitative result, the laboratory provides spot counts for informational purposes only. The T-SPOT.TB test should not be interpreted as a quantitative test. Panel A Spot Count Corrected For Neg Control 0 [facility] Panel B Spot Count Corrected For Neg Control 2 [facility] Negative Control Passed [facility] Positive Control Passed [facility] Comment: (NOTE) For additional information, please refer to http://education.[employer] [email or web address]-nterview/faq/WRO754 (This link is being provided for informational/ educational purposes only.) 02/15/2025 2:33 PM EDT 02/15/2025 2:46 PM EDT Radha Garcia MD LAB BLOOD ORDERABLES Final Re sult Performing Organization Address City/[facility]/ZIP Co de Phone Number [facility] [address] [place], [place] * Tetanus antitoxoid antibody, IgG (02/15/2025 2:33 PM EDT) Pathologist [facility] Tetanus Ab, IgG Positive [facility] [address] [facility] Comment: (NOTE) REFERENCE VALUE Vaccinated: Positive (>= 0.01 IU/mL) Unvaccinated: Negative (< 0.01 IU/mL) Tetanus IgG Value 0.91 IU/mL [facility] [address] [facility] Comment: (NOTE) ADDITIONAL INFORMATION This test was developed and its performance characteristics determined by [facility] in a manner consistent with CLIA requirements. This test has not been cleared or approved by the U.S. Food and Drug Administration. 02/15/2025 2:33 PM EDT 02/15/2025 2:45 PM EDT us Radha Garcia MD LAB BLOOD ORDERABLES Final Re sult [facility] [place] [address] [place] [address] * Pneumococcus IgG antibody (23 serotypes) (02/15/2025 2:33 PM EDT) Serotype 1 (1) 0.1 >=1.0 mcg/mL [facility] [place] Serotype 2 (2) 0.5 >=1.0 mcg/mL [facility] [place] [address] Serotype 3 (3) 0.1 >=1.0 mcg/mL [facility] [place] [address] Serotype 4 (4) <0.1 >=1.0 mcg/mL [facility] [place] [address] Serotype 5 (5) <0.1 >=1.0 mcg/mL [facility] [place] [address] Serotype 8 (8) 0.1 >=1.0 mcg/mL [facility] [address] Serotype 9N (9) <0.1 >=1.0 mcg/mL [facility] Serotype 12F (12) <0.1 >=1.0 mcg/mL [facility] Serotype 14 (14) 0.6 >=1.0 mcg/mL [facility] Serotype 17F (17) 0.2 >=1.0 mcg/mL [facility] Serotype 19F (19) 0.2 >=1.0 mcg/mL [facility] Serotype 20 (20) 0.1 >=1.0 mcg/mL [facility] Serotype 22F (22) 0.1 >=1.0 mcg/mL [facility] Serotype 23F (23) <0.1 >=1.0 mcg/mL [facility] Serotype 6B (26) <0.1 >=1.0 mcg/mL [facility] Serotype 10A (34) 0.2 >=1.0 mcg/mL [facility] Serotype 11A (43) 0.1 >=1.0 mcg/mL [facility] Serotype 7F (51) 0.3 >=1.0 mcg/mL [facility] Serotype 18C (56) 0.3 >=1.0 mcg/mL [facility] Serotype 19A (57) 0.1 >=1.0 mcg/mL [facility] Serotype 9V (68) <0.1 >=1.0 mcg/mL [facility] Serotype 33F (70) 0.1 >=1.0 mcg/mL [facility] Interpretation SEE NOTE [facility] Comment: (NOTE) Evaluation of the immune response following pneumococcal vaccination can be assessed by measuring serotype-specific Streptococcus pneumonia IgG antibodies. Either of the following conditions is consistent with a normal response to Streptococcus pneumonia vaccination: 1. When comparing pre and post-vaccination samples, antibody concentrations increased by at least 2-fold for either >50% of serotypes in children <6 years of age or >70% of serotypes for individuals >6 years of age. 2. In either a pre- or post-vaccination sample, antibody concentrations >=1.0 mcg/mL for either >50% of serotypes for children <6 years of age or >70% of serotypes for individuals >6 years of age. Results >=1.0 mcg/mL or those showing a >=2-fold change are consistent with an immune response, but are not necessarily sufficient to provide protection against infection. ADDITIONAL INFORMATION This test was developed and its performance characteristics determined by [facility] in a manner consistent with CLIA requirements. This test has not been cleared or approved by the U.S. Food and Drug Administration. 02/15/2025 2:33 PM EDT 02/15/2025 2:45 PM EDT Radha Gracia MD LAB BLOOD BKR ORDERABLES Tiffany l Result [facility] [address] [place] [address] * Free light chains, serum (02/15/2025 2:33 PM EDT) FREE KAPPA LT CHAIN 5.9 3.3 - 19.4 mg/L [facility] FREE LAMBDA LT CHAIN 8.7 5.7 - 26.3 mg/L [facility] FREE KAPPA LAMBDA RAT 0.68 0.30 - 1.70 [facility] 02/15/2025 2:33 PM EDT 02/15/2025 2:45 PM EDT Radha Garcia MD LAB BLOOD BKR ORDERABLES Tiffany l Result [facility] [address] [place] [address] * (ABNORMAL) CBC and differential (02/15/2025 2:33 PM EDT) Only the most recent of2 resultswithin the time period is included. WBC 5.85 4.00 - 11.00 K/uL [facility] RBC 4.25(L) 4.50 - 5.90 M/uL [facility] HGB 11.6(L) 13.5 - 17.5 g/dL [facility] HCT 38.3(L) 41.0 - 53.0 % [facility] PLT 168 150 - 450 K/uL [facility] MCV 90.1 80.0 - 100.0 fL [facility] MCH 27.3 27.0 - 31.0 pg [facility] MCHC 30.3(L) 32.0 - 36.0 g/dL [facility] RDW 15.3(H) 11.5 - 14.5 % [facility] MPV 10.9 8.4 - 12.0 fL [facility] NRBC 0.00 0.00 /100 WBCs [facility] ABSOLUTE NRBC 0.00 0.00 K/uL [facility] DIFF METHOD Auto [facility] NEUTS 62.2 48.0 - 76.0 % [facility] LYMPHS 22.2 18.0 - 41.0 % [facility] MONOS 10.8 4.0 - 11.0 % [facility] EOS 3.9 0.0 - 5.0 % [facility] BASOS 0.7 0.0 - 1.5 % [facility] % IMMATURE GRANS 0.2 0.0 - 0.9 % [facility] ABSOLUTE NEUTS 3.64 1.92 - 7.60 K/uL [facility] ABSOLUTE LYMPHS 1.30 0.72 - 4.10 K/uL [facility] ABSOLUTE MONOS 0.63 0.16 - 1.10 K/uL [facility] ABSOLUTE EOS 0.23 0.00 - 0.50 K/uL [facility] ABSOLUTE BASOS 0.04 0.00 - 0.15 K/uL [facility] ABS IMMATURE GRANS 0.01 0.00 - 0.09 K/uL [facility] Blood 02/15/2025 2:33 PM EDT 02/15/2025 2:45 PM EDT us Radha Garcia MD LAB BLOOD BKR ORDERABLES Tiffany traore Result [facility] [address] [place] [address] * CT CHEST WITH CONTRAST (01/27/2025 8:39 PM EDT) Anatomical Region Laterality Modality Chest Computed Tomogra phy 01/27/2025 10:0 6 PM EDT Impressions 01/27/2025 10:20 PM EDT 1. Hyperdense collection inferior to the right chest AICD measuring up to 4.3 cm likely reflecting a small hematoma. 2. Mild subcutaneous stranding overlying the right pectoral musculature likely related to recent procedure. 3. Chronic parenchymal changes, reticular opacities, and bronchiectatic changes in the bilateral lungs as described. Narrative 01/27/2025 10:[address] CHEST WITH CONTRAST Referring clinician's provided indication for this examination in Epic: * Chest pain, nonspecific; AICD changed 1 week ago right chest wall, worsening pain, swelling, on eliquis, ?infection vs hematoma TECHNIQUE: Multidetector CT of the chest was performed with intravenous contrast using tailored dose modulation techniques. COMPARISON: CT abdomen and pelvis from July 03, 2018. CT chest from January 21, 2018. FINDINGS: Devices/Tubes/Lines: Right chest AICD with right atrial and right ventricular leads. Lungs: Bibasilar atelectatic and reticular opacities. Bronchiectatic changes in the lateral lower lobes. Chronic appearing peripheral consolidation with calcification at the right anterior upper and middle lobes. Pleura: No pleural effusion or pneumothorax. Dense left basilar pleural calcifications. Mediastinum: No thyroid nodule. Heart is within normal size limits. Left ventricular wall thickening with relative sparing of the septum. Severe amount of coronary calcifications. 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 Lymph Nodes: No enlarged supraclavicular, axillary, mediastinal, or hilar lymph nodes. Upper Abdomen: No acute abnormality detected in the visualized upper abdomen. Partially visualized abdominal aortic endovascular graft. Moderate hiatal hernia. Cholelithiasis. Chest Wall: Hyperdense collection inferior to the right chest AICD measuring 2.8 x 4.3 cm likely reflecting a small hematoma. Mild subcutaneous stranding overlying the right pectoral musculature. Bones: No suspicious lytic or blastic lesions. Multilevel degenerative change of the visualized spine. Prior median sternotomy. Chronic bilateral rib fracture deformities. Procedure Note Dayne Kim MD - 01/27/2025 CT CHEST WITH CONTRAST Referring clinician's provided indication for this examination in Epic: *Chest pain, nonspecific; AICD changed 1 week ago right chest wall,worsening pain, swelling, on eliquis, ?infection vs hematoma TECHNIQUE: Multidetector CT of the chest was performed with intravenouscontrast using tailored dose modulation techniques. COMPARISON: CT abdomen and pelvis from July 03, 2018. CT chest fromJanuary 21, 2018. FINDINGS: Devices/Tubes/Lines: Right chest AICD with right atrial and rightventricular leads. Lungs: Bibasilar atelectatic and reticular opacities. Bronchiectaticchanges in the lateral lower lobes. Chronic appearing peripheralconsolidation with calcification at the right anterior upper and middlelobes. Pleura: No pleural effusion or pneumothorax. Dense left basilar pleuralcalcifications. Mediastinum: No thyroid nodule. Heart is within normal size limits. Leftventricular wall thickening with relative sparing of the septum. Severeamount of coronary calcifications. Prior CABG with multivessel chronicappearing vascular occlusions. Lymph Nodes: No enlarged supraclavicular, axillary, mediastinal, or hilarlymph nodes. Upper Abdomen: No acute abnormality detected in the visualized upperabdomen. Partially visualized abdominal aortic endovascular graft.Moderate hiatal hernia. Cholelithiasis. Chest Wall: Hyperdense collection inferior to the right chest AICDmeasuring 2.8 x 4.3 cm likely reflecting a small hematoma. Mildsubcutaneous stranding overlying the right pectoral musculature. Bones: No suspicious lytic or blastic lesions. Multilevel degenerativechange of the visualized spine. Prior median sternotomy. Chronic bilateralrib fracture deformities. IMPRESSION: 1. Hyperdense collection inferior to the right chest AICD measuring up to4.3 cm likely reflecting a small hematoma. 2. Mild subcutaneous stranding overlying the right pectoral musculaturelikely related to recent procedure. 3. Chronic parenchymal changes, reticular opacities, and bronchiectaticchanges in the bilateral lungs as described. Raul Maddox MD IMG CT CHEST Final Result * (ABNORMAL) LFTs (hepatic panel) (01/27/2025 7:46 PM EDT) ALKALINE PHOSPHATASE 76 39 - 117 U/L [facility] TOTAL BILIRUBIN 0.5 0.0 - 1.2 mg/dL [facility] DIRECT BILIRUBIN 0.2 0.0 - 0.2 mg/dL [facility] Bilirubin (Indirect) 0.3 0 - 1.5 mg/dL [facility] AST 9 0 - 37 U/L [facility] ALT <5 0 - 40 U/L [facility] TOTAL PROTEIN 5.4(L) 6.5 - 8.0 g/dL [facility] ALBUMIN 3.5(L) 3.9 - 4.8 g/dL [facility] GLOBULIN 1.9 1 - 4.8 g/dL [facility] A/G Ratio 1.84 1.00 - 4.80 RATIO [facility] Blood 01/27/2025 7:46 PM EDT 01/27/2025 8:01 PM EDT Raul Maddox MD LAB BLOOD BKR ORDERABLES Final Result [address] [address] * Lactate (01/27/2025 7:46 PM EDT) [facility] LACTATE 1.19 0.50 - 2.20 mmol/L [facility] Blood 01/27/2025 7:46 PM EDT 01/27/2025 7:59 PM EDT Raul Maddox MD LAB BLOOD BKR ORDERABLES Final Result [address] [address] * (ABNORMAL) Basic metabolic panel (01/27/2025 7:46 PM EDT) SODIUM 143 133 - 146 mmol/L [facility] CHLORIDE 107 96 - 108 mmol/L [facility] POTASSIUM 4.2 3.3 - 5.1 mmol/L [facility] CO2 24 21 - 35 mmol/L [facility] BUN 26(H) 6 - 19 mg/dL [facility] CREATININE 1.00 0.5 - 1.5 mg/dL [facility] GLUCOSE 86 70 - 99 mg/dL [facility] CALCIUM 9.4 8.4 - 10.3 mg/dL [facility] EGFR 78 >59 mL/min/1.7 3m2 [facility] Comment:Estimated glomerular filtration rate calculated using the CKD-EPI refit equation. ANION GAP 16 10 - 20 mmol/L [facility] Blood 01/27/2025 7:46 PM EDT 01/27/2025 8:01 PM EDT Raul Maddox MD LAB BLOOD BKR ORDERABLES Final Result Performing Organization Address City/State/[facility] Co de Phone Number [address] [address] * ECG 12-LEAD (01/27/2025 7:05 PM EDT) Ventricular Rate EKG/MIN 67 BPM [facility] Atrial Rate 67 BPM [facility] IL Interval 154 ms [facility] QRS Duration 160 ms [facility] QT Interval 474 ms [facility] QTC Interval 500 ms [facility] P [place] 28 degrees [facility] R Wave [place] 237 degrees [facility] T Wave [place] 102 degrees [facility] 01/27/2025 7:05 PM EDT 01/28/2025 2:48 PM EDT Narrative [facility] - 01/28/2025 2:48 PM EDT Atrial-sensed ventricular-paced rhythm Abnormal ECG When compared with ECG of 10-Sep-2013 07:11, Electronic ventricular pacemaker has replaced Sinus rhythm Confirmed by Norman Schafer ([id number]) on 01/28/2025 2:48:43 PM us Raul Maddox MD ECG ORDERABLES Final Result Performing Organization Address City/[facility]/ZIP Co de Phone Number [email or web address] * Outside EP Study Report Only (01/20/2025 7:38 PM EDT) us Historical Provider MD MARILYN SANFORD Final Result * Hepatitis B surface antigen (10/12/2024 9:32 AM EDT) HBV SURFACE ANTIGEN NON-REACTI VE NON-REACTI VE [facility] 10/12/2024 9:32 AM EDT 10/12/2024 10:54 AM EDT Dillon Gee MD LAB BLOOD BKR ORDER LILA Final Result Performing Organization Address [facility] Co de Phone Number [address] [address] * TSH with reflex (12/17/2021 11:58 AM EDT) TSH 2.60 0.27 - 4.20 uIU/mL [facility] Blood 12/17/2021 11:5 8 AM EDT 12/17/2021 12:00 PM EDT Seymour Ferris NP LAB BLOOD BKR ORDERABL ES Final Result Performing Organization Address [facility] Co de Phone Number [address] [address] from Last 3 Months or Most Recently Relevant to Health Maintenance Insurance MEDICARE PART A & B [employer] SU[employer]MENT MEDICARE PART A & B [employer] SUPP[employer] MEDICARE PART A & B [employer] SU[employer] MEDICARE PART A & B [employer] SUPP[employer]MENT MEDICARE PART A & B [place] [employer] SUPP[employer]MENT MEDICARE PART A & B [place] [employer] SUPPLEMENT MEDICARE PART A & B [place] [employer] SUPP[employer]MENT MEDICARE PART A & B [place] [employer] SUPP[employer]MENT MEDICARE PART A & B Member Subscriber Plan / Payer ( fective 2013-Present) Name:Renard Mckeon Member ID:[id number] Relation to Subscriber:Self Name:Renard Mckeon Subscriber ID:[id number] Payer ID:[id number] Group ID:Not on file Type:Medicare Address: [facility].[address] [address] [employer] SUPPLEMENT Advance Directives For more information, please contact: [phone] (9AM - 5PM Jessie/[facility], Friday-Friday) * Full Code (Confirmed) (Latest Code Status on File) Date Activated Date Inactivated Comments 09/02/2018 9:07 PM 09/21/2018 3:45 PM Question Answer Comments Code Status Confirmed With: Family Care Teams Mathematics Department Chair Relationship Specialty Start Date End Date Ezra Denney NP [address] [address] PCP - General Family Medicine 07/07/19 Tony Miranda MD [email or web address] Historical LMR Provider 02/20/17 Jamie Soto MD [address] [place] [address], [facility] [address] [place] [address] [email or web address] Historical LMR Provider 02/20/17 Rinku Carrizales MD [address] [place] [id number] [email or web address] Historical LMR Provider 02/20/17 Additional Source Comments The information contained in this document represents components of the legal health record. It is not the complete legal health record.[facility]
--- OUTSIDE RECORDS SUMMARY | 2025-03-29 15:56 | XMS_ITS | Encounter Summary ---
Author Organization [facility] Address [address] [place] [address] Phone Care Team Providers Care Casket Assembler Metal Name Role Phone Seymour Ferris Renay QUARRYING MANAGER Unavailable Tony Miranda MD Unavailable Keyla Melton Unavailable [email or web address] Jamie Soto MD Unavailable Mamadou Loving DO Unavailable Roger Jorgensen QUARRYING MANAGER Unavailable [phone] Rinku Carrizales MD Unavailable Ezra Denney QUARRYING MANAGER Primary Care Provider + Encounter Details Date Type Department Care Team (Late st Contact Info) Description 07/24/2020 Procedure Pass Non-Invasive Cardiology [address] [place], [place] [id number] Social History Tobacco Use Types Packs/Day Years [...] Info) Description 08/24/2024 Procedure Pass Echo Lab [address] [place] [address] 04/18/2025 11:45 AM EST Office Visit [facility] [address], [address] [place] [address] Tony Sargent, DO [address] [place] [address] [place] [address] 08/24/2025 11:15 AM EDT Appointment Echo Lab [address] [place] [address] Tony Sargent, [address] [address] documented as of this encounter Visit Diagnoses Not on filedocumented in this encounter Care Teams Casket Assembler Metal Relationship Specialty Start Date End Date Ezra Denney NP [facility] [place] [address] PCP - General Family Medicine 07/07/19 Seymour Ferris NP [address] [address] Historical LMR Provider 02/20/1705/12/21 Tony Miranda MD 101 [facility] [address] [place] [address] [email or web address] Historical LMR Provider 02/20/17 Keyla Melton PA Historical LMR Provider 02/20/17 05/12/21 Jamie Soto MD 22 [facility] [address] [place] [address] [email or web address] Historical LMR Provider 02/20/17 Mamadou Loving DO [address] [place] [address] Historical LMR Provider 02/20/17 Roger Jorgensen NP [address] [place] [address] [address] [place] [address] Historical LMR Provider 02/20/17 2 Rinku Carrizales MD [address] [address] [email or web address] Historical LMR Provider 02/20/17 documented as of this encounter Additional Source Comments The information contained in this document represents components of the legal health record. It is not the complete legal health record.[facility]
--- OUTSIDE RECORDS SUMMARY | 2025-03-29 15:56 | XMS_ITS | Encounter Summary ---
Author Organization [facility] Address [address] [place] [address] Phone Care Team Providers Care Fence Supervisor Name Role Phone Tony Miranda MD Unavailable [phone] Jamie Soto MD Unavailable Rinku Carrizales MD Unavailable [phone] Ezra Denney CURRICULUM SPECIALIST Primary Care Provider + Encounter Details Date Type Department Care Team (Late st Contact Info) Description 02/14/2023 Procedure Pass Non-Invasive Cardiology [address] [place] [address] Social History Tobacco Use Types Packs/Day Years [...] Info) Description 08/24/2024 Procedure Pass Echo Lab [address] [place] [address] 04/18/2025 11:45 AM EST Office Visit [facility] [address] [place] [address] 3rd Floor, [address] [place] [address] Tony Sargent, DO [address] [place] [address] 08/24/2025 11:15 AM EDT Appointment Echo Lab [address] [place] [address] Tony Sargent, DO [address] [place] [address] documented as of this encounter Visit Diagnoses Not on filedocumented in this encounter Care Teams Fence Supervisor Relationship Specialty Start Date End Date Ezra Denney NP [address] [place] [address] PCP - General Family Medicine 07/07/19 Tony Miranda MD [email or web address] Historical LMR Provider 02/20/17 Jamie Soto MD [address] [place] [address], [address] [address] [email or web address] Historical LMR Provider 02/20/17 Rinku Carrizales MD [address] [place] [address] [email or web address] Historical LMR Provider 02/20/17 documented as of this encounter Additional Source Comments The information contained in this document represents components of the legal health record. It is not the complete legal health record.[facility]
--- OUTSIDE RECORDS SUMMARY | 2025-03-29 15:56 | XMS_ITS | Encounter Summary ---
Author Organization [facility] Address [address] [place] [address] Phone Care Team Providers Care Buckshot Swage Operator Name Role Phone Mamadou Loving DO Primary Care Provider [phone] Seymour Ferris RESIDENT PHYSICIAN IN RADIOLOGY Unavailable Tony Miranda MD Unavailable Keyla Melton Unavailable [email or web address] Jamie Soto MD Unavailable [phone] Mamadou Loving DO Unavailable Roger Jorgensen RESIDENT PHYSICIAN IN RADIOLOGY Unavailable Rinku Carrizales MD Unavailable [phone] Ezra Denney NP Primary Care Provider + Encounter Details Date Type Department Care Team (Late st Contact Info) Description 07/09/2018 Ancillary [facility] [address] [place] [address] Tony Miranda MD [address] [place] [address] [place] [address] [email or web address] Social History Tobacco Use Types Packs/Day Years [...] Info) Description 08/24/2024 Procedure Pass Echo Lab [address] [place] [address] 04/18/2025 11:45 AM EST Office Visit [facility] [address] [place] [address] 3rd Floor, [address] [place] [address] Tony Sargent [address] [address] 08/24/2025 11:15 AM EDT Appointment Echo Lab [address] [place] [address] Tony Sargent [address] [place] [address] documented as of this encounter Visit Diagnoses Not on filedocumented in this encounter Care Teams Buckshot Swage Operator Relationship Specialty Start Date End Date Mamadou Loving DO [address] [place] [address] PCP - General 02/20/17 07/06/19 Ezra Denney NP [address] [facility] [place] [address] PCP - General Family Medicine 07/07/19 Seymour Ferris NP [address] [place] [address] Historical LMR Provider 02/20/1705/12/21 Tony Miranda MD [address] [place] [address] [email or web address] Historical LMR Provider 02/20/17 Keyla Melton PA Historical LMR Provider 02/20/17 05/12/21 Jamie Soto MD [address] [place] [address] [email or web address] Historical LMR Provider 02/20/17 Mamadou Loving DO [address] [place] [address] Historical LMR Provider 02/20/17 Roger Jorgensen NP [address] [place] [address] [address] [place] [phone] Historical LMR Provider 02/20/17 2 Rinku Carrizales MD [address] [place] [address] [email or web address] Historical LMR Provider 02/20/17 documented as of this encounter Additional Source Comments The information contained in this document represents components of the legal health record. It is not the complete legal health record.[facility]
--- OUTSIDE RECORDS SUMMARY | 2025-03-29 15:56 | XMS_ITS | Encounter Summary ---
Author Organization [facility] Address [address] [place] [address] [address] [place] [address] Phone Care Team Providers Care Pocket Flap Creasing Machine Operator Name Role Phone Seymour Ferris Renay MANUFACTURING SUPPORT ENGINEER Unavailable Tnoy Miranda MD Unavailable Keyla Melton Unavailable [email or web address] Jamie Soto MD Unavailable Mamadou Loving DO Unavailable Roger Jorgensen MANUFACTURING SUPPORT ENGINEER Unavailable [phone] Rinku Carrizales MD Unavailable [phone] Ezra Denney MANUFACTURING SUPPORT ENGINEER Primary Care Provider + Encounter Details Date Type Department Care Team (Late st Contact Info) Description 03/14/2021 Transcribe [facility] [address] [place] [address] 3rd Floor, [address] [place] [address] Marivel Denny MD [address] [address] [email or web address] Social History Tobacco Use Types Packs/Day Years [...] Description 08/24/2024 Procedure Pass Echo Lab [address] [place] [address] 04/18/2025 11:45 AM EST Office Visit [facility] [address] 3rd Floor, [address] [place] [address] Tony Sargent [address] [address] 08/24/2025 11:15 AM EDT Appointment Echo Lab [address] [place] [address] Tony Sargent [address] [place] [address] documented as of this encounter Visit Diagnoses Not on filedocumented in this encounter Care Teams Pocket Flap Creasing Machine Operator Relationship Specialty Start Date End Date Ezra Denney NP [facility] [place] [address] PCP - General Family Medicine 07/07/19 Seymour Ferris NP [address] [place] [address] Historical LMR Provider 02/20/1705/12/21 Tony Miranda MD [address] [place] [address] [email or web address] Historical LMR Provider 02/20/17 Keyla Melton PA Historical LMR Provider 02/20/17 05/12/21 Jamie Soto MD 22 [facility] 301 [place] [address] [email or web address] Historical LMR Provider 02/20/17 Mamadou Loving DO [address] [place] [address] Historical LMR Provider 02/20/17 Roger Jorgensen NP [address] [place] [address] [address] [place] [phone] Historical LMR Provider 02/20/17 2 Rinku Carrizales MD [address] [address] [email or web address] Historical LMR Provider 02/20/17 documented as of this encounter Additional Source Comments The information contained in this document represents components of the legal health record. It is not the complete legal health record.[facility]
--- OUTSIDE RECORDS SUMMARY | 2025-03-29 15:56 | XMS_ITS | Encounter Summary ---
Author Organization [facility] Address [address] [place] [address] Phone Care Team Providers Care Enrichment Specialist Name Role Phone Mamadou Loving DO Primary Care Provider [phone] Seymour Ferris CHRO Unavailable [phone] Tony Miranda MD Unavailable Keyla Melton Unavailable [email or web address] Jamie Soto MD Unavailable Mamadou Loving DO Unavailable Roger Jorgensen CHRO Unavailable [phone] Rinku Carrizales MD Unavailable [phone] Ezra Denney NP Primary Care Provider + Encounter Details Date Type Department Care Team (Latest Contact Info) Description 07/09/2018 Ancillary Orders Non-Invasive Cardiology [address] [place] [id number] Tony Miranda MD [address] [place] [address] [email or web address] Ischemic cardiomyopathy Social History Tobacco Use [...] Info) Description 08/24/2024 Procedure Pass Echo Lab [address] [place] [address] 04/18/2025 11:45 AM EST Office Visit [facility] [address] [place] [address] 3rd Floor, [address] [place] [address]ent [address] [address] 08/24/2025 11:15 AM EDT Appointment Echo Lab [address] [place] [address] Tony Sargent [address] [place] [address] documented as of this encounter Visit Diagnoses Diagnosis Ischemic cardiomyopathy Other specified forms of chronic ischemic heart disease documented in this encounter Care Teams Enrichment Specialist Relationship Specialty Start Date End Date Mamadou Loving DO [address] [place] [address] PCP - General 02/20/17 07/06/19 Ezra Denney NP [address] [place] [address] [place] [address] PCP - General Family Medicine 07/07/19 Seymour Ferris NP [address] [place] [address] Historical LMR Provider 02/20/1705/12/21 Tony Miranda MD 101 [facility] 100 [place] [address] [email or web address] Historical LMR Provider 02/20/17 Keyla Melton PA Historical LMR Provider 02/20/17 05/12/21 Jamie oSto MD [address] [place] [address] [email or web address] Historical LMR Provider 02/20/17 Mamadou Loving DO [address] [place] [address] Historical LMR Provider 02/20/17 Roger Jorgensen NP [address] [place] [address] [address] [place] [phone] Historical LMR Provider 02/20/17 2 Rinku Carrizales MD [address] [place] [address] [email or web address] Historical LMR Provider 02/20/17 documented as of this encounter Additional Source Comments The information contained in this document represents components of the legal health record. It is not the complete legal health record.[facility]
--- OUTSIDE RECORDS SUMMARY | 2025-03-29 15:56 | XMS_ITS | Encounter Summary ---
Author Organization [facility] Address [address] [place] [address] Phone Care Team Providers Care Assembler Semiconductor Name Role Phone Seymour Ferris Renay CERTIFIED FAMILY MEDIATOR Unavailable Tony Miranda MD Unavailable Keyla Melton Unavailable [email or web address] Jamie Soto MD Unavailable Mamadou Loving DO Unavailable Roger Jorgensen CERTIFIED FAMILY MEDIATOR Unavailable Rinku Carrizales MD Unavailable [phone] Ezra Denney CERTIFIED FAMILY MEDIATOR Primary Care Provider + Encounter Details Date Type Department Care Team (Late st Contact Info) Description 03/05/2020 Procedure Pass Echo Lab [address] [place] [address] Social History Tobacco Use Types [...] Info) Description 08/24/2024 Procedure Pass Echo Lab [address] [place] [address] 04/18/2025 11:45 AM EST Office Visit [facility] [address] 3rd Floor, [address] [place] [address] Tony Sargent, DO [address] [place] [address] [place] [address] 08/24/2025 11:15 AM EDT Appointment Echo Lab [address] [place] [address] Tony Sargent, [address] [address] documented as of this encounter Visit Diagnoses Not on filedocumented in this encounter Care Teams Assembler Semiconductor Relationship Specialty Start Date End Date Ezra Denney NP [facility] [address] PCP - General Family Medicine 07/07/19 Seymour Ferris NP [address] [address] Historical LMR Provider 02/20/1705/12/21 Tony Miranda MD 101 [facility] 100 [place] [address] [email or web address] Historical LMR Provider 02/20/17 Keyla Melton PA Historical LMR Provider 02/20/17 05/12/21 Jamie Soto MD 22 [facility] 301 [place] [address] [email or web address] Historical LMR Provider 02/20/17 Mamadou Loving DO [address] [place] [address] Historical LMR Provider 02/20/17 Roger Jorgensen NP [address] [place] [address] 2[address] [place] [address] Historical LMR Provider 02/20/17 2 Rinku Carrizales MD [address] [address] [email or web address] Historical LMR Provider 02/20/17 documented as of this encounter Additional Source Comments The information contained in this document represents components of the legal health record. It is not the complete legal health record.[facility]
--- OUTSIDE RECORDS SUMMARY | 2025-03-29 15:56 | XMS_ITS | Encounter Summary ---
Author Organization [facility] Address [address] [place] [address] [address] [place] [address] Phone Care Team Providers Care Strategic Accounts Manager Name Role Phone Mamadou Loving DO Primary Care Provider [phone] Seymour Ferris BUSINESS BANKER Unavailable Tony Miranda MD Unavailable Keyla Melton Unavailable [email or web address] Jamie Soto MD Unavailable Mamadou Loving DO Unavailable [phone] Roger Jorgensen BUSINESS BANKER Unavailable [phone] Rinku Carrizales MD Unavailable [phone] Ezra Denney NP Primary Care Provider + Encounter Details Date Type Department Care Team (Late st Contact Info) Description 09/02/2018 Procedure Pass [facility] [place] Cardiac Machine Made Shoe Unit Worker [address] [facility], [address] 9, [address] [place] [address] Social History Tobacco Use Types [...] Info) Description 08/24/2024 Procedure Pass Echo Lab [address] [place] [address] 04/18/2025 11:45 AM EST Office Visit [facility] [address] [place] [address] 3rd Floor, [address] [place] [address] Tony Sargent, DO [address] [place] [address] 08/24/2025 11:15 AM EDT Appointment Echo Lab [address] [place] [address] Tony Sargent DO [address] [place] [address] [place] [address] documented as of this encounter Visit Diagnoses Not on filedocumented in this encounter Care Teams Strategic Accounts Manager Relationship Specialty Start Date End Date Mamadou Loving DO [address] [place] [address] PCP - General 02/20/17 07/06/19 Ezra Denney NP 1961 [facility] [place] [address] PCP - General Family Medicine 07/07/19 Seymour Ferris NP [address] [place] [address] Historical LMR Provider 02/20/1705/12/21 Tony Miranda MD [address] [place] [address] [email or web address] Historical LMR Provider 02/20/17 Keyla Melton PA Historical LMR Provider 02/20/17 05/12/21 Jamie Soto MD [address] [place] [address] 301 [place] [address] [email or web address] Historical LMR Provider 02/20/17 Mamadou Loving DO [address] [place] [address] Historical LMR Provider 02/20/17 Roger Jorgensen NP [address] [place] [address] 2[address] [place] [phone] Historical LMR Provider 02/20/17 2 Rinku Carrizales MD [address] [place] [address] [email or web address] Historical LMR Provider 02/20/17 documented as of this encounter Additional Source Comments The information contained in this document represents components of the legal health record. It is not the complete legal health record.[facility]
--- OUTSIDE RECORDS SUMMARY | 2025-03-29 15:56 | XMS_ITS | Encounter Summary ---
Author Organization [facility] Address [address] [place] [address] Phone Care Team Providers Care Golf Club Head Former Name Role Phone Seymour Ferris Antonellaroxane CRIMINOLOGY TEACHER Unavailable Tony Miranda MD Unavailable Keyla Melton Unavailable [email or web address] Jamie Soto MD Unavailable Mamadou Loving DO Unavailable Roger Jorgensen CRIMINOLOGY TEACHER Unavailable [phone] Rinku Carrizales MD Unavailable [phone] Ezra Denney CRIMINOLOGY TEACHER Primary Care Provider + Encounter Details Date Type Department Care Team (Latest Contact Info) Description 03/14/2020 Ancillary Orders Non-Invasive Cardiology [address] [place], [place] [id number] Tony Miranda MD [address] [place] [address] [email or web address] Ischemic cardiomyopathy Social History Tobacco Use [...] Description 08/24/2024 Procedure Pass Echo Lab [address] [place] [address] 04/18/2025 11:45 AM EST Office Visit [facility] [address] [place] [address] 3rd Floor, [address] [place] [address] Tony Sargent, [address] [place] [address] [email or web address] 08/24/2025 11:15 AM EDT Appointment Echo Lab [address] [place] [address] Tony Sargent, [address] [place] [address] documented as of this encounter Results * [...] device: Ischemic caridomyopathy Examination: Device type: ICD Customs Examiner: Medtronic Mode: VVI LRL/URL: 40/- bpm Thresholds, [...] for device: Ischemiccaridomyopathy Examination: Device type: ICD Customs Examiner: Medtronic Mode: VVI LRL/URL: 40/- bpm Thresholds, [...] disease documented in this encounter Care Teams Golf Club Head Former Relationship Specialty Start Date End Date Ezra Denney NP [facility] [place] [address] PCP - General Family Medicine 07/07/19 Seymour Ferris NP 101 [facility] 100 [place] [address] [email or web address] Historical LMR Provider 02/20/1705/12/21 Tony Miranda MD 101 [facility] 100 [place] [address] [email or web address] Historical LMR Provider 02/20/17 Keyla Melton PA [email or web address] Historical LMR Provider 02/20/17 05/12/21 Jamie Soto MD [address] [address] [email or web address] Historical LMR Provider 02/20/17 Mamadou Loving DO [address] [place] [address] Historical LMR Provider 02/20/17 Roger Jorgensen NP [address] [place] [address] [address] [place] [address] Historical LMR Provider 02/20/17 2 Rinku Carrizales MD [address] [place] [address] [email or web address] Historical LMR Provider 02/20/17 documented as of this encounter Additional Source Comments The information contained in this document represents components of the legal health record. It is not the complete legal health record.[facility]
--- OUTSIDE RECORDS SUMMARY | 2025-03-29 15:56 | XMS_ITS | Encounter Summary ---
Author Organization [facility] Address [address] [place] [address] Care Team Providers Care Bathing Suit Maker Name Role Phone Mamadou Loving Primary Care Provider [phone] Zackary Martinez MD Unavailable Encounter Details Date Type Department Care Team (Late st Contact Info) Description 04/07/[address] [facility] [place] [address] Marco Lopez MD [address] [address] Social History Tobacco Use Types Packs/Day Years [...] on filedocumented in this encounter Care Teams Bathing Suit Maker Relationship Specialty Start Date End Date Mamadou Loving [address] [place] [address] [place] [address] PCP - General Medicine Hospitalist 03/26/17 Zackary Martinez MD [address] [place] [address] [place] [address] Cardiovascular Disease 04/03/17 documented as of this encounter
--- OUTSIDE RECORDS SUMMARY | 2025-03-29 15:56 | XMS_ITS | Encounter Summary ---
Author Organization [facility] Address [address] [place] [address] Phone Care Team Providers Care Global Sales Director Name Role Phone Mamadou Loving DO Primary Care Provider [phone] Seymour Ferris PRE PLANNING ADVISOR Unavailable Tony Miranda MD Unavailable Keyla Melton Unavailable [email or web address] Jamie Soto MD Unavailable [phone] Mamadou Loving DO Unavailable [phone] Roger Jorgensen PRE PLANNING ADVISOR Unavailable [phone] Rinku Carrizales MD Unavailable [phone] Ezra Denney NP Primary Care Provider + Encounter Details Date Type Department Care Team (Late st Contact Info) Description 09/02/2018 Procedure Pass [facility] PERIOPERATIVE DEPT [address] [place] [address] Social History Tobacco Use Types [...] Upcoming Encounters Date Type Department Care Team ([facility] st Contact Info) Description 08/24/2024 Procedure Pass Echo Lab [address] [place] [address] 04/18/2025 11:45 AM EST Office Visit [facility] [address] 3rd Floor, [address] [place] [address] Tony Sargent, DO [address] [place] [address] 08/24/2025 11:15 AM EDT Appointment Echo Lab [address] [place] [address] Tony Sargent DO [address] [place] [address] documented as of this encounter Visit Diagnoses Not on filedocumented in this encounter Care Teams Global Sales Director Relationship Specialty Start Date End Date Mamadou Loving DO [address] [place] [address] PCP - General 02/20/17 07/06/19 Ezra Denney NP [facility] [place] [address] PCP - General Family Medicine 07/07/19 Seymour Ferris NP [address] [place] [address] Historical LMR Provider 02/20/1705/12/21 Tony Miranda MD [address] [place] [address] [email or web address] Historical LMR Provider 02/20/17 Keyla Melton PA Historical LMR Provider 02/20/17 05/12/21 Jamie Soto MD 22 [facility] 301 [place] [address] [email or web address] Historical LMR Provider 02/20/17 Mamadou Loving DO [address] [place] [address] Historical LMR Provider 02/20/17 Roger Jorgensen NP [address] [place] [address] 2-1 [place] [phone] Historical LMR Provider 02/20/17 2 Rinku Carrizales MD [address] [address] [email or web address] Historical LMR Provider 02/20/17 documented as of this encounter Additional Source Comments The information contained in this document represents components of the legal health record. It is not the complete legal health record.[facility]
--- OUTSIDE RECORDS SUMMARY | 2025-03-29 15:56 | XMS_ITS | Encounter Summary ---
Author Organization [facility] Address [address] [place] [address] Phone Care Team Providers Care Rda Name Role Phone Seymour Ferris Renay COUNTER PERSON Unavailable Tony Miranda MD Unavailable Keyla Melton Unavailable [email or web address] Jamie Soto MD Unavailable Mamadou Loving DO Unavailable Roger Jorgensen COUNTER PERSON Unavailable Rinku Carrizales MD Unavailable [phone] Ezra Denney COUNTER PERSON Primary Care Provider + Encounter Details Date Type Department Care Team (Late st Contact Info) Description 03/14/2020 Procedure Pass Non-Invasive Cardiology [address] [place] [place], [place] [phone] Social History Tobacco Use Types Packs/Day Years [...] Info) Description 08/24/2024 Procedure Pass Echo Lab [address] [place] [address] 04/18/2025 11:45 AM EST Office Visit [facility] [address] 3rd Floor, [address] [place] [address] Tony Sargent, DO [address] [place] [address] [place] [address] 08/24/2025 11:15 AM EDT Appointment Echo Lab [address] [place] [address] Tony Sargent, [address] [address] documented as of this encounter Visit Diagnoses Not on filedocumented in this encounter Care Teams Rda Relationship Specialty Start Date End Date Ezra Denney NP [facility] [place] [address] PCP - General Family Medicine 07/07/19 Seymour Ferris NP [address] [address] Historical LMR Provider 02/20/1705/12/21 Tony Miranda MD 101 [facility] 100 [place] [address] [email or web address] Historical LMR Provider 02/20/17 Keyla Melton PA Historical LMR Provider 02/20/17 05/12/21 Jamie Soto MD 22 [facility] 301 [place] [address] [email or web address] Historical LMR Provider 02/20/17 Mamadou Loving DO [address] [place] [address] Historical LMR Provider 02/20/17 Roger Jorgensen NP [address] [place] [address] 2-1 [place] [address] Historical LMR Provider 02/20/17 2 Rinku Carrizales MD [address] [address] [email or web address] Historical LMR Provider 02/20/17 documented as of this encounter Additional Source Comments The information contained in this document represents components of the legal health record. It is not the complete legal health record.[facility]
--- OUTSIDE RECORDS SUMMARY | 2025-03-29 15:56 | XMS_ITS | Clinical Summary ---
Author Organization [facility] Address [address] [place] [phone] Phone Care Team Providers Care Data Input Clerk Name Role Phone Erza Denney NP Primary Care Provider Allergies Active [...] 11:00 AM EDT Office Visit Endocrinology - [place] [address] [place] [address] Colin Martinez MD [address] [place] [address] Health Maintenance Due Date Last Done Comments [...] Patients (1 - 1-dose 75+ series) 2023 Depression Screening 05/05/2024 COVID-19 Vaccine ( season) 2025 03/04/2022, 03/09/2021, 08/02/2020, Additional history exists Influenza Vaccine (#1) 2025 2, 02/14/2020, 03/05/2019, [...] mmol/L LAB CHEMISTRY METHOD 06/07/2024 11:08 AM [facility] Potassium 4.0 3.5 - 5.5 mmol/L LAB CHEMISTRY METHOD 06/07/2024 11:08 AM [facility] Chloride 107 96 - 110 mmol/L LAB CHEMISTRY METHOD 06/07/2024 11:08 AM [facility] CO2 28 21 - 32 mmol/L LAB CHEMISTRY METHOD 06/07/2024 11:08 AM [facility] Anion Gap 7 3 - 11 LAB CHEMISTRY METHOD 06/07/2024 11:08 AM [facility] Glucose 65(L) 70 - 100 mg/dL LAB CHEMISTRY METHOD 06/07/2024 11:[address] [facility] BUN 15 5 - 25 mg/dL LAB CHEMISTRY METHOD 06/07/2024 11:08 AM [facility] Creatinine 0.81 0.70 - 1.30 mg/dL LAB CHEMISTRY METHOD 06/07/2024 11:08 AM [facility] eGFR 91 >=60 mL/min/1. 73m2 LAB CHEMISTRY METHOD 06/07/2024 11:08 AM [facility] Comment:Calculation based on the Chronic Kidney Disease Epidemiology Collaboration (CKD-EPI) equation refit without adjustment for race. BUN/Creatinine Ratio 18.5 LAB CHEMISTRY METHOD 06/07/2024 11:08 AM [facility] Calcium 9.1 8.5 - 10.5 mg/dL LAB CHEMISTRY METHOD 06/07/2024 11:08 AM [facility] Blood Venous blood specimen / Unknown Venipuncture / Unknown 06/07/2024 7:01 AM EST 06/07/2024 9:23 AM EST Eugene Wilson MD LAB BLOOD ORDERABLES Final Res ult [facility] [address] [place] [address], from Last 3 Months or Most Recently Relevant to Health Maintenance Insurance MEDICARE [employer] Care Teams Data Input Clerk Relationship Specialty Start Date End Date Ezra Denney NP [address] [place], [place] PCP - General 06/24/23
--- OUTSIDE RECORDS SUMMARY | 2025-03-29 15:56 | XMS_ITS | Encounter Summary ---
Author Organization [facility] Address [address] [place] [address] Phone Care Team Providers Care Child Adolescent Care Name Role Phone Tony Miranda MD Unavailable Jamie Soto MD Unavailable Rinku Carrizales MD Unavailable [phone] Ezra Denney PILLAR WORKER Primary Care Provider + Reason for Referral * MRI/CAT Scan - Closed Specialty Diagnoses / Procedures Referred By Navneet t Referred To Contact Radiology Diagnoses Chest pain on breathing Procedures NC Myocardial Perfusion Pharmacologic Stress Multiple NC Myocardial Perfusion Exercise Multiple Tony Sargent DO Phone: tel: fax: [email or web address] Referral ID Status Reason Start Date Expiration Date Visits Re quested Visits Authorized [id number] Closed 12/10/2023 1 1 Encounter Details Date Type Department Care Team (Latest Contact Info) Description 01/12/2024 Ancillary Orders [facility] [address] [facility] 3rd Floor, [address] [place], [place] [phone] Tony Sargent DO 22 [facility] [address] [place], [place] [id number] [email or web address] Chest pain on breathing (Primary Dx); [...] Description 08/24/2024 Procedure Pass Echo Lab [address] [place] [address] 04/18/2025 11:45 AM EST Office Visit [facility] [address] [place] [address] 3rd Floor, [address] [place] [address] Tony Sargent, DO [address] [place] [address] [place] [address] 08/24/2025 11:15 AM EDT Appointment [place] [address] Tony Sargent, [address] [place] [address] documented as of this encounter Results * [...] in SPECT format, reconstructed tomographically and compared [id number] in short axis, horizontal long axis and [...] Tc99m Sestamibi by Jose Flanagan, the nuclear medicine medical director. 1. EKG - Baseline EKG showed sinus [...] hyperlipidemia documented in this encounter Care Teams Child Adolescent Care Relationship Specialty Start Date End Date Ezra Denney NP [facility] [place] [address] PCP - General Family Medicine 07/07/19 Tony Miranda MD [email or web address] Historical LMR Provider 02/20/17 Jamie Soto MD [address] [place] [address] [email or web address] Historical LMR Provider 02/20/17 Rinku Carrizales MD [address] [place] [address] [email or web address] Historical LMR Provider 02/20/17 documented as of this encounter Additional Source Comments The information contained in this document represents components of the legal health record. It is not the complete legal health record.[facility]
--- OUTSIDE RECORDS SUMMARY | 2025-03-29 15:57 | XMS_ITS | Clinical Summary ---
Author Organization [facility] Address [address] [place] [address] Care Team Providers Care Vp Corporate Development Name Role Phone Mamadou Loving Primary Care Provider [phone] Zackary Martinez MD Unavailable Allergies Active Allergy [...] Vaccine (1 of 2) 1998 RSV Vaccine 50 years and old er and Patients (1 - 1-dose 75+ series) 2023 Influenza Vaccine 12/03/2024 COVID-19 Vaccine ( - 2023-2 5 season) 2025 Hepatitis B Vaccines Aged Out No long er eligible based on patient's age to complete this topic Medical Devices Implanted Type Area Lean Manufacturing Engineer Device Identifier Shelf Expiration Date Model / Serial / Lot Afx2 Bifurcated Endograft Implanted:Qty: 1 on 04/11/2017 by Marco Lopez MD at [facility] [place] [facility] [employer] 02/05/2018 [id number] / [id number] / Description:CAPPED PRICING $ 14,500.00 Afx Arte[employer] Proximal Endograft Implanted:Qty: 1 on 04/11/2017 by Marco Lopez MD at [facility] [place] [facility] [employer] 01/28/2020 A25-25/C75- O 20V / [id number] / Description:CAPPED PRICING $ 14,500.00. THIS ITEM NOT CHARGEABLE. 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 - [id number] Implanted:Qty: 1 on 04/11/2017 by Marco Lopez MD at [facility] [place] [facility] [employer] S17-45 / / [id number] Insurance MEDICARE PART A & B [facility] Advance Directives * Full Code (Latest Code Status on File) Date Activated Date Inactivated Comments 04/11/2017 1:01 PM * Full Code Date Activated Date Inactivated Comments 04/11/2017 7:06 AM 04/11/2017 1:01 PM Care Teams Vp Corporate Development Relationship Specialty Start Date End Date Mamadou Loving [address] [place] [address] [place] [address] PCP - General Medicine Hospitalist 03/26/17 Zackary Martinez MD [address] [place] [address] [place] [address] Cardiovascular Disease 04/03/17
--- OUTSIDE RECORDS SUMMARY | 2025-03-29 15:57 | XMS_ITS | Encounter Summary ---
Author Organization [facility] Address [address] [place] [address] Phone Care Team Providers Care It Desktop Support Specialist Name Role Phone Seymour Ferris Renay BOOKBINDER APPRENTICE Unavailable [phone] Tony Miranda MD Unavailable Keyla Melton Unavailable [email or web address] Jamie Soto MD Unavailable Mamadou Loving DO Unavailable Roger Jorgensen BOOKBINDER APPRENTICE Unavailable [phone] Rinku Carrizales MD Unavailable [phone] Ezra Denney BOOKBINDER APPRENTICE Primary Care Provider + Encounter Details Date Type Department Care Team (Late st Contact Info) Description 05/10/2021 Procedure Pass Non-Invasive Cardiology [address] [place] [place], [place] [phone] Social History Tobacco Use Types Packs/Day Years [...] Info) Description 08/24/2024 Procedure Pass Echo Lab [address] [place] [address] 04/18/2025 11:45 AM EST Office Visit [facility] [address] 3[address] Floor, [address] [place] [address] Tony Sargent, DO [address] [place] [address] [place] [address] 08/24/2025 11:15 AM EDT Appointment Echo Lab [address] [place] [address] Tony Sargent, [address] [address] documented as of this encounter Visit Diagnoses Not on filedocumented in this encounter Care Teams It Desktop Support Specialist Relationship Specialty Start Date End Date Ezra Denney NP [facility] [place] [address] PCP - General Family Medicine 07/07/19 Seymour Ferris NP [address] [address] Historical LMR Provider 02/20/1705/12/21 Tony Miranda MD 101 [facility] 100 [place] [address] [email or web address] Historical LMR Provider 02/20/17 Keyla Melton PA Historical LMR Provider 02/20/17 05/12/21 Jamie Soto MD 22 [facility] 301 [place] [address] [email or web address] Historical LMR Provider 02/20/17 Mamadou Loving DO [address] [place] [address] Historical LMR Provider 02/20/17 Roger Jorgensen NP [address] [place] [address] 2-1 [place] [address] Historical LMR Provider 02/20/17 2 Rinku Carrizales MD [address] [address] [email or web address] Historical LMR Provider 02/20/17 documented as of this encounter Additional Source Comments The information contained in this document represents components of the legal health record. It is not the complete legal health record.[facility]
--- OUTSIDE RECORDS SUMMARY | 2025-03-29 15:57 | XMS_ITS | Encounter Summary ---
Author Organization [facility] Address [address] [place] [address] [address] [place] [address] Phone Care Team Providers Care Organizational Effectiveness Director Name Role Phone Mamadou Loving DO Primary Care Provider [phone] Seymour Ferris MAT CUTTER Unavailable Tony Miranda MD Unavailable Keyla Melton Unavailable [email or web address] Jamie Soto MD Unavailable Mamadou Loving DO Unavailable [phone] Roger Jorgensen MAT CUTTER Unavailable Rinku Carrizales MD Unavailable [phone] Ezra Denney NP Primary Care Provider + Encounter Details Date Type Department Care Team (Late st Contact Info) Description 09/04/2018 Procedure Pass [facility] Cardiac Legal Summer Intern [address], [address], [address] [place] [address] Social History Tobacco Use Types [...] Description 08/24/2024 Procedure Pass Echo Lab [address] [place] [address] 04/18/2025 11:45 AM EST Office Visit [facility] [address] [place] [address] 3rd Floor, [address] [place] [address] Tony Sargent, DO [address] [place] [address] 08/24/2025 11:15 AM EDT Appointment Echo Lab [address] [place] [address] Tony Sargent DO [address] [place] [address] [place] [address] documented as of this encounter Visit Diagnoses Not on filedocumented in this encounter Care Teams Organizational Effectiveness Director Relationship Specialty Start Date End Date Mamadou Loving DO [address] [place] [address] PCP - General 02/20/17 07/06/19 Ezra Denney NP [address] [facility] [place] [address] PCP - General Family Medicine 07/07/19 Seymour Ferris NP [address] [place] [address] [place] [address] Historical LMR Provider 02/20/1705/12/21 Tony Miranda MD [address] [place] [address] [place] [address] [email or web address] Historical LMR Provider 02/20/17 Keyla Melton PA Historical LMR Provider 02/20/17 05/12/21 Jamie Soto MD [address] [place] [address] 301 [place] [address] [email or web address] Historical LMR Provider 02/20/17 Mamadou Loving DO [address] [place] [address] Historical LMR Provider 02/20/17 Roger Jorgensen NP [address] [place] [address] 2-1 [place] [phone] Historical LMR Provider 02/20/17 2 Rinku Carrizales MD [address] [place] [address] [email or web address] Historical LMR Provider 02/20/17 documented as of this encounter Additional Source Comments The information contained in this document represents components of the legal health record. It is not the complete legal health record.[facility]
--- OUTSIDE RECORDS SUMMARY | 2025-03-29 15:57 | XMS_ITS | Encounter Summary ---
Author Organization [facility] Address [address] [place] [address] Phone Care Team Providers Care Manager Paid Name Role Phone Seymour Ferris Renay SYSTEMS INTEGRATION MANAGER Unavailable Tony Miranda MD Unavailable Keyla Melton Unavailable [email or web address] Jamie Soto MD Unavailable [phone] Mamadou Loving DO Unavailable Roger Jorgensen SYSTEMS INTEGRATION MANAGER Unavailable Rinku Carrizales MD Unavailable [phone] Ezra Denney SYSTEMS INTEGRATION MANAGER Primary Care Provider + Encounter Details Date Type Department Care Team (Late st Contact Info) Description 01/24/2021 Procedure Pass Non-Invasive Cardiology [address] [place] [place], [place] [phone] Social History Tobacco Use Types Packs/Day Years [...] Description 08/24/2024 Procedure Pass Echo Lab [address] [place] [address] 04/18/2025 11:45 AM EST Office Visit [facility] [address] 3[address] Floor, [address] [place] [address] Tony Sargent, DO [address] [place] [address] [place] [address] 08/24/2025 11:15 AM EDT Appointment Echo Lab [address] [place] [address] Tony Sargent, [address] [address] documented as of this encounter Visit Diagnoses Not on filedocumented in this encounter Care Teams Manager Paid Relationship Specialty Start Date End Date Ezra Denney NP [facility] [place] [address] PCP - General Family Medicine 07/07/19 Seymour Ferris NP [address] [address] Historical LMR Provider 02/20/1705/12/21 Tony Miranda MD 101 [facility] 100 [place] [address] [email or web address] Historical LMR Provider 02/20/17 Keyla Melton PA Historical LMR Provider 02/20/17 05/12/21 Jamie oSto MD 22 [facility] 301 [place] [address] [email or web address] Historical LMR Provider 02/20/17 Mamadou Loving DO [address] [place] [address] Historical LMR Provider 02/20/17 Roger Jorgensen NP [address] [place] [address] 2-1 [place] [address] Historical LMR Provider 02/20/17 2 Rinku Carrizales MD [address] [address] [email or web address] Historical LMR Provider 02/20/17 documented as of this encounter Additional Source Comments The information contained in this document represents components of the legal health record. It is not the complete legal health record.[facility]
--- OUTSIDE RECORDS SUMMARY | 2025-03-29 15:57 | XMS_ITS | Encounter Summary ---
Author Organization [facility] Address [address] [place] [address] Phone Care Team Providers Care Branch Chief Name Role Phone Tony Miranda MD Unavailable [phone] Jamie Soto MD Unavailable Rinku Carrizales MD Unavailable [phone] Ezra Denney TOLL BRIDGE ATTENDANT Primary Care Provider + Encounter Details Date Type Department Care Team (Late st Contact Info) Description 08/12/2022 Procedure Pass Non-Invasive Cardiology [address] [place] [address] Social History Tobacco Use Types Packs/Day Years [...] 08/24/2024 Procedure Pass [facility] [address] [place] [address] 04/18/2025 11:45 AM EST Office Visit [facility] [address] Floor, [address] [place] [address] Tony Sargent, DO [address] [address] 08/24/2025 11:15 AM EDT Appointment Echo Lab [address] [place] [address] Tony Sargent, DO [address] [address] documented as of this encounter Visit Diagnoses Not on filedocumented in this encounter Care Teams Branch Chief Relationship Specialty Start Date End Date Ezra Denney NP [address] [place] [address] PCP - General Family Medicine 07/07/19 Tony Miranda MD [email or web address] Historical LMR Provider 02/20/17 Jamie Soto MD 22 [facility], [address] [address] [email or web address] Historical LMR Provider 02/20/17 Rinku Carrizales MD [address] [address] [email or web address] Historical LMR Provider 02/20/17 documented as of this encounter Additional Source Comments The information contained in this document represents components of the legal health record. It is not the complete legal health record.[facility]
--- OUTSIDE RECORDS SUMMARY | 2025-03-29 15:57 | XMS_ITS | Encounter Summary ---
Author Organization [facility] Address [address] [place] [address] Phone Care Team Providers Care Senior Hardware Engineer Name Role Phone Mamadou Loving DO Primary Care Provider [phone] Seymour Ferris PRODUCTION TECH Unavailable [phone] Tony Miranda MD Unavailable Keyla Melton Unavailable [email or web address] Jamie Soto MD Unavailable Mamadou Loving DO Unavailable Roger Jorgensen PRODUCTION TECH Unavailable [phone] Rinku Carrizales MD Unavailable [phone] Ezra Denney NP Primary Care Provider + Encounter Details Date Type Department Care Team (Late st Contact Info) Description 12/02/2017 Procedure Pass [facility] Ct Scan - [facility] 30 [place] [address] Social History Tobacco Use Types Packs/Day Years [...] Info) Description 08/24/2024 Procedure Pass Echo Lab [address] [place] [address] 04/18/2025 11:45 AM EST Office Visit [facility] [address] 3rd Floor, [address] [place] [address] Tony Sargent, DO [address] [place] [address] 08/24/2025 11:15 AM EDT Appointment Echo Lab [address] [place] [address] Tony Sargent, DO [address] [place] [address] [email or web address] documented as of this encounter Visit Diagnoses Not on filedocumented in this encounter Care Teams Senior Hardware Engineer Relationship Specialty Start Date End Date Mamadou Loving DO [address] [place] [address] PCP - General 02/20/17 07/06/19 Ezra Denney NP [address] [place] [address] PCP - General Family Medicine 07/07/19 Seymour Ferris NP [address] [place] [address] [place] [address] [email or web address] Historical LMR Provider 02/20/1705/12/21 Tony Miranda MD [address] [place] [address] [place] [address] [email or web address] Historical LMR Provider 02/20/17 Keyla Melton PA Historical LMR Provider 02/20/17 05/12/21 Jamie Soto MD 22 [facility] [address] [place] [address] [email or web address] Historical LMR Provider 02/20/17 Mamadou Loving DO [address] [place] [address] Historical LMR Provider 02/20/17 Roger Jorgensen NP [address] [place] [address] [phone] Historical LMR Provider 02/20/17 Rinku Bermudez MD [address] [place] [address] [email or web address] Historical LMR Provider 02/20/17 documented as of this encounter Additional Source Comments The information contained in this document represents components of the legal health record. It is not the complete legal health record.[facility]
--- OUTSIDE RECORDS SUMMARY | 2025-03-29 15:57 | XMS_ITS | Encounter Summary ---
Author Organization [facility] Address [facility] [address] [place] [address] Phone Care Team Providers Care Government Instructor Name Role Phone Tony Miranda MD Unavailable Jamie Soto MD Unavailable [phone] Rinku Carrizales MD Unavailable [phone] Ezra Denney HOG CONFINEMENT SYSTEM MANAGER Primary Care Provider + Encounter Details Date Type Department Care Team (Late st Contact Info) Description 08/12/2022 Ancillary Orders [facility] [address] [facility] 3rd Floor, [address] [place], [place] [id number] Arthur Casarez MD [address] [place], [place] [id number] [email or web address] Social History Tobacco Use Types Packs/Day Years [...] Description 08/24/2024 Procedure Pass [facility] [address] [place] [address] 04/18/2025 11:45 AM EST Office Visit [facility] [address] [place] [address] 3rd Floor, [address] [address] Tony Sargent, DO [address] [place] [address] 08/24/2025 11:15 AM EDT Appointment Echo [facility] [address] [place] [address] Tony Sargent, DO [address] [place] [address] [email or web address] documented as of this encounter Visit Diagnoses Not on filedocumented in this encounter Care Teams Government Instructor Relationship Specialty Start Date End Date Ezra Denney NP [address] [facility] [place] [address] PCP - General Family Medicine 07/07/19 Tony Miranda MD [email or web address] Historical LMR Provider 02/20/17 Jamie Soto MD [address] [place] [address], [address] [address] [email or web address] Historical LMR Provider 02/20/17 Rinku Carrizales MD [address] [address] [email or web address] Historical LMR Provider 02/20/17 documented as of this encounter Additional Source Comments The information contained in this document represents components of the legal health record. It is not the complete legal health record.[facility]
--- OUTSIDE RECORDS SUMMARY | 2025-03-29 15:57 | XMS_ITS | Encounter Summary ---
Author Organization [facility] Address [address] [place] [address] Phone Care Team Providers Care Web Developer Name Role Phone Mamadou Loving DO Primary Care Provider [phone] Seymour Ferris HAIR BLENDER Unavailable Tony Miranda MD Unavailable Keyla Melton Unavailable [email or web address] Jamie Soto MD Unavailable Mamadou Loving DO Unavailable Roger Jorgensen HAIR BLENDER Unavailable Rinku Carrizales MD Unavailable [phone] Ezra Denney NP Primary Care Provider + Encounter Details Date Type Department Care Team (Late st Contact Info) Description 12/02/2017 Procedure Pass [facility], Ct Scan - [facility] [address] [place] [address] Social History Tobacco Use Types Packs/Day Years [...] Info) Description 08/24/2024 Procedure Pass Echo [facility] [address] [place] [address] 04/18/2025 11:45 AM EST Office Visit [facility] [address] 3rd Floor, [address] [place] [address] Tony Sargent, DO [address] [place] [address] 08/24/2025 11:15 AM EDT Appointment Echo Lab [address] [place] [address] Toyn Sargent, DO [address] [place] [address] [email or web address] documented as of this encounter Visit Diagnoses Not on filedocumented in this encounter Care Teams Web Developer Relationship Specialty Start Date End Date Mamadou Loving DO [address] [place] [address] PCP - General 02/20/17 07/06/19 Ezra Denney NP [address] [facility] [place] [address] PCP - General Family Medicine 07/07/19 Seymour Ferris NP [address] [place] [address] [email or web address] Historical LMR Provider 02/20/1705/12/21 Tony Miranda MD [address] [place] [address] [email or web address] Historical LMR Provider 02/20/17 Keyla Melton PA Historical LMR Provider 02/20/17 05/12/21 Jamie Soto MD 22 [facility] [address] [place] [address] [email or web address] Historical LMR Provider 02/20/17 Mamadou Loving DO [address] [place] [address] Historical LMR Provider 02/20/17 Roger Jorgensen NP [address] [place] [address] [phone] Historical LMR Provider 02/20/17 Rinku Bermudez MD [address] [place] [address] [email or web address] Historical LMR Provider 02/20/17 documented as of this encounter Additional Source Comments The information contained in this document represents components of the legal health record. It is not the complete legal health record.[facility]
--- OUTSIDE RECORDS SUMMARY | 2025-03-29 15:57 | XMS_ITS | Encounter Summary ---
Author Organization [facility] Address [address] [place] [address] Phone Care Team Providers Care Network Operations Lead Name Role Phone Seymour Ferris Renay SMALL EQUIPMENT OPERATOR Unavailable Tony Miranda MD Unavailable Keyla Melton Unavailable [email or web address] Jamie Soto MD Unavailable [phone] Mamadou Loving DO Unavailable Roger Jorgensen SMALL EQUIPMENT OPERATOR Unavailable Rinku Carrizales MD Unavailable [phone] Ezra Denney SMALL EQUIPMENT OPERATOR Primary Care Provider + Encounter Details Date Type Department Care Team (Late st Contact Info) Description 02/23/2020 Procedure Pass Non-Invasive Cardiology [address] [place], [place] [id number] Social History Tobacco Use Types Packs/Day Years [...] Info) Description 08/24/2024 Procedure Pass Echo [facility] [address] [place] [address] 04/18/2025 11:45 AM EST Office Visit [facility] [address] 3rd Floor, [address] [place] [address] Tony Sargent, DO [address] [place] [address] [place] [address] 08/24/2025 11:15 AM EDT Appointment Echo Lab [address] [place] [address] Tony Sargent, [address] [address] documented as of this encounter Visit Diagnoses Not on filedocumented in this encounter Care Teams Network Operations Lead Relationship Specialty Start Date End Date Ezra Denney NP [facility] [place] [address] PCP - General Family Medicine 07/07/19 Seymour Ferris NP [address] [address] Historical LMR Provider 02/20/1705/12/21 Tony Miranda MD 101 [facility] 100 [place] [address] [email or web address] Historical LMR Provider 02/20/17 Keyla Melton PA Historical LMR Provider 02/20/17 05/12/21 Jamie Soto MD 22 [facility] 301 [place] [address] [email or web address] Historical LMR Provider 02/20/17 Mamadou Loving DO [address] [place] [address] Historical LMR Provider 02/20/17 Roger Jorgensen NP [address] [place] [address] 2[address] [place] [address] Historical LMR Provider 02/20/17 2 Rinku Carrizales MD [address] [address] [email or web address] Historical LMR Provider 02/20/17 documented as of this encounter Additional Source Comments The information contained in this document represents components of the legal health record. It is not the complete legal health record.[facility]
--- OUTSIDE RECORDS SUMMARY | 2025-03-29 15:57 | XMS_ITS | Encounter Summary ---
Author Organization [facility] Address [address] [place] [address] Phone Care Team Providers Care Order Takers Supervisor Name Role Phone Tony Miranda MD Unavailable [phone] Jamie Soto MD Unavailable [phone] Rinku Carrizales MD Unavailable [phone] Ezra Denney COLLEGE INSTRUCTOR Primary Care Provider + Encounter Details Date Type Department Care Team (Latest Contact Info) Description 08/12/2022 Ancillary Orders Non-Invasive Cardiology [address] [place] [place], [place] [id number] Arthur Casarez MD [address] [place], [place] [id number] [email or web address] Ischemic cardiomyopathy Social History Tobacco [...] Info) Description 08/24/2024 Procedure Pass [facility] [address] [place] [address] 04/18/2025 11:45 AM EST Office Visit [facility] [address] [place] [address] Dr 3rd Floor, [address] [place] [address] Tony Sargent, [address] [place] [address] [email or web address] 08/24/2025 11:15 AM EDT Appointment Echo Lab [address] [place] [address] Tony Sargent, [address] [place] [address] [email or web address] documented as of this encounter Results * DEVICE CHECK: ICD IN-HOME INTERROGATION PLUS HFM IMPEDANCE (08/12/2022 10:47 AM EDT) Narrative Tony Sargent DO - 08/13/2022 11:21 AM EDT Images from the original result were not included. Reason for appointment: Remote ICD interrogation HPI: Routine 3 month remote ICD interrogation. No device related complaints. Indication for device: Ischemic cardiomyopathy Examination: Device type: ICD Dry Mill Worker: Medtronic Mode: VVI LRL/URL: 40/- bpm Thresholds, [...] by Iker Chan RN Procedure Note Tony Sargent DO - 08/13/2022 Images from the original note were not included. Reason for appointment: Remote ICD interrogation HPI: Routine 3 month remote ICD interrogation. No device relatedcomplaints. Indication for device: Ischemic cardiomyopathy Examination: Device type: ICD Dry Mill Worker: Medtronic Mode: VVI LRL/URL: 40/- bpm Thresholds, [...] disease documented in this encounter Care Teams Order Takers Supervisor Relationship Specialty Start Date End Date Ezra Denney NP [address] [facility] [place] [address] PCP - General Family Medicine 07/07/19 Tony Miranda MD [email or web address] Historical LMR Provider 02/20/17 Jamie Soto MD [address] [place] [address], [facility] 301 [place] [address] [email or web address] Historical LMR Provider 02/20/17 Rinku Carrizales MD [address] [address] [email or web address] Historical LMR Provider 02/20/17 documented as of this encounter Additional Source Comments The information contained in this document represents components of the legal health record. It is not the complete legal health record.[facility]
--- OUTSIDE RECORDS SUMMARY | 2025-03-29 15:57 | XMS_ITS | Encounter Summary ---
Author Organization [facility] Address [address] [place] [address] Phone Care Team Providers Care Clinical Trial Associate Name Role Phone Mamadou Loving DO Primary Care Provider [phone] Seymour Ferris INSTRUMENTATION INSTRUCTOR Unavailable Tony Miranda MD Unavailable Keyla Melton Unavailable [email or web address] Jamie Soto MD Unavailable Mamadou Loving DO Unavailable Roger Jorgensen INSTRUMENTATION INSTRUCTOR Unavailable [phone] Rinku Carrizales MD Unavailable [phone] Ezra Denney NP Primary Care Provider + Encounter Details Date Type Department Care Team (Late st Contact Info) Description 09/12/2017 Ancillary [facility] [address] [place] [address] Tony Miranda MD [address] [place] [address] [place] [address] [email or web address] Social History Tobacco Use Types Packs/Day Years [...] Info) Description 08/24/2024 Procedure Pass Echo [facility] [address] [place] [address] 04/18/2025 11:45 AM EST Office Visit [facility] [address] [place] [address] 3rd Floor, [address] [place] [address] Tony Sargent [address] [address] 08/24/2025 11:15 AM EDT Appointment Echo Lab [address] [place] [address] Tony Sargent [address] [place] [address] documented as of this encounter Visit Diagnoses Not on filedocumented in this encounter Care Teams Clinical Trial Associate Relationship Specialty Start Date End Date Mamadou Loving DO [address] [place] [address] PCP - General 02/20/17 07/06/19 Ezra Denney NP [address] [facility] [place] [address] PCP - General Family Medicine 07/07/19 Seymour Ferris NP [address] [place] [address] Historical LMR Provider 02/20/1705/12/21 Tony Miranda MD [address] [place] [address] [email or web address] Historical LMR Provider 02/20/17 Keyla Melton PA Historical LMR Provider 02/20/17 05/12/21 Jamie Soto MD [address] [place] [address] [email or web address] Historical LMR Provider 02/20/17 Mamadou Loving DO [address] [place] [address] Historical LMR Provider 02/20/17 Roger Jorgensen NP [address] [place] [address] [address] [place] [phone] Historical LMR Provider 02/20/17 2 Rinku Carrizales MD [address] [place] [address] [email or web address] Historical LMR Provider 02/20/17 documented as of this encounter Additional Source Comments The information contained in this document represents components of the legal health record. It is not the complete legal health record.[facility]
--- OUTSIDE RECORDS SUMMARY | 2025-03-29 15:57 | XMS_ITS | Encounter Summary ---
Author Organization [facility] Address [address] [place] [address] [address] [place] [address] Phone Care Team Providers Care Physical Ther Name Role Phone Yazmin Ferrisbuckrosa maria Renay METEOROLOGICAL ENGINEER Unavailable Tony Miranda MD Unavailable Keyla Melton Unavailable [email or web address] Jamie Soto MD Unavailable [phone] Mamadou Loving DO Unavailable Roger Jorgensen METEOROLOGICAL ENGINEER Unavailable [phone] Rinku Carrizales MD Unavailable [phone] Ezra Denney METEOROLOGICAL ENGINEER Primary Care Provider + Encounter Details Date Type Department Care Team (Late st Contact Info) Description 03/14/2020 Procedure Pass [facility] Cardiac EP [address] [facility], 5th Floor, [address] [place] [address] Social History Tobacco Use Types Packs/Day Years [...] Info) Description 08/24/2024 Procedure Pass [facility] [address] [place] [address] 04/18/2025 11:45 AM EST Office Visit [facility] [address] 3rd Floor, [address] [place] [address] Tony Sargent, DO [address] [place] [address] [place] [address] 08/24/2025 11:15 AM EDT Appointment Echo Lab [address] [place] [address] Tony Sargent, [address] [address] documented as of this encounter Visit Diagnoses Not on filedocumented in this encounter Care Teams Physical Ther Relationship Specialty Start Date End Date Ezra Denney NP [facility] [place] [address] PCP - General Family Medicine 07/07/19 Seymour Ferris NP [address] [address] Historical LMR Provider 02/20/1705/12/21 Tony Miranda MD 101 [facility] 100 [place] [address] [email or web address] Historical LMR Provider 02/20/17 Keyla Melton PA Historical LMR Provider 02/20/17 05/12/21 Jamie Soto MD 22 [facility] 301 [place] [address] [email or web address] Historical LMR Provider 02/20/17 Mamadou Loving DO [address] [place] [address] Historical LMR Provider 02/20/17 Roger Jorgensen, NACHO [address] [place] [address] 2[address] [place] [address] Historical LMR Provider 02/20/17 2 Rinku Carrizales MD [address] [place] [address] [email or web address] Historical LMR Provider 02/20/17 documented as of this encounter Additional Source Comments The information contained in this document represents components of the legal health record. It is not the complete legal health record.[facility]
--- OUTSIDE RECORDS SUMMARY | 2025-03-29 15:57 | XMS_ITS | Encounter Summary ---
Author Organization [facility] Address [address] [place] [address] [address] [place] [address] Phone Care Team Providers Care Laborer Adjustable Steel Joist Name Role Phone Tony Miranda MD Unavailable Jamie Soto MD Unavailable Rinku Carrizales MD Unavailable [phone] Ezra Denney GRIPS Primary Care Provider + Reason for Visit * Reason Comments Medication Refill Encounter Details Date Type Department Care Team (Late st Contact Info) Description 08/29/2024 Refill Division of Immunologic, Inflammatory, and Infectious Neurological Disorders [address] [place] [address], 7th Floor, [address] [place] [address] Jordana Webb MD [address] [place] [address] Medication Refill Social History Tobacco Use Types [...] visit: 12/03/2023 Jordana Webb MD - Neurology [place] [address] > Requested f/u: Return in about 6 months (around 06/04/2024). Upcoming visit: None ACTIONS TAKEN BY Abimbola Oneil - Refill protocol not met - Asked front office spec staff to schedule appointment. Antiepileptic With Lab [...] Description 08/24/2024 Procedure Pass Echo Lab [address] [place] [address] 04/18/2025 11:45 AM EST Office Visit [facility] [address] [place] [address] 3rd Floor, [address] [place] [address] Tony Sargent, DO [address] [place] [address] 08/24/2025 11:15 AM EDT Appointment Echo Lab [address] [place] [address] Tony Sargent, [address] [address] documented as of this encounter Visit Diagnoses Diagnosis Autoimmune encephalitis- Primary documented in this encounter Care Teams Laborer Adjustable Steel Joist Relationship Specialty Start Date End Date Ezra Denney NP [address] [place] [address] PCP - General Family Medicine 07/07/19 Tony Miranda MD [email or web address] Historical LMR Provider 02/20/17 Jamie Soto MD [address] [place] [address], [address] [address] [email or web address] Historical LMR Provider 02/20/17 Rinku Carrizales MD [address] [place] [address] [email or web address] Historical LMR Provider 02/20/17 documented as of this encounter Additional Source Comments The information contained in this document represents components of the legal health record. It is not the complete legal health record.[facility]
--- OUTSIDE RECORDS SUMMARY | 2025-03-29 15:57 | XMS_ITS | Encounter Summary ---
Author Organization [facility] Address [address] [place] [address] [address] [place] [address] Phone Care Team Providers Care Construction Executive Name Role Phone Mamadou Loving DO Primary Care Provider [phone] Seymour Ferris SPECIAL INSPECTOR Unavailable Tony Miranda MD Unavailable Keyla Melton Unavailable [email or web address] Jamie Soto MD Unavailable Mamadou Loving DO Unavailable [phone] Roger Jorgensen SPECIAL INSPECTOR Unavailable Rinku Carirzales MD Unavailable [phone] Ezra Denney NP Primary Care Provider + Encounter Details Date Type Department Care Team (Late st Contact Info) Description 09/04/2018 Procedure Pass [facility] Cardiac Program Medical Director [address] [facility], [address] 9, [address] [place] [address] Social History Tobacco Use Types [...] Description 08/24/2024 Procedure Pass Echo Lab [address] [place] [address] 04/18/2025 11:45 AM EST Office Visit [facility] [address] [place] [address] 3rd Floor, [address] [place] [address] Tony Sargent, DO [address] [place] [address] 08/24/2025 11:15 AM EDT Appointment Echo Lab [address] [place] [address] Tony Sargent DO [address] [place] [address] [place] [address] documented as of this encounter Visit Diagnoses Not on filedocumented in this encounter Care Teams Construction Executive Relationship Specialty Start Date End Date Mamadou Loving DO [address] [place] [address] PCP - General 02/20/17 07/06/19 Ezra Denney NP [address] [facility] [place] [address] PCP - General Family Medicine 07/07/19 Seymour Ferris NP [address] [place] [address] Historical LMR Provider 02/20/1705/12/21 Tony Miranda MD [address] [place] [address] [email or web address] Historical LMR Provider 02/20/17 Keyla Melton PA Historical LMR Provider 02/20/17 05/12/21 Jamie Soto MD [address] [place] [address] 301 [place] [address] [email or web address] Historical LMR Provider 02/20/17 Mamadou Loving DO [address] [place] [address] Historical LMR Provider 02/20/17 Roger Jorgensen NP [address] [place] [address] 2-1 [place] [phone] Historical LMR Provider 02/20/17 2 Rinku Carrizales MD [address] [place] [address] [email or web address] Historical LMR Provider 02/20/17 documented as of this encounter Additional Source Comments The information contained in this document represents components of the legal health record. It is not the complete legal health record.[facility]
--- OUTSIDE RECORDS SUMMARY | 2025-03-29 15:57 | XMS_ITS | Encounter Summary ---
Author Organization [facility] Address [address] [place] [address] Phone Care Team Providers Care Track Mechanic Name Role Phone Mamadou Loving DO Primary Care Provider [phone] Seymour Ferris GIRL FRIDAY Unavailable Tony Miranda MD Unavailable Keyla Melton Unavailable [email or web address] Jamie Soto MD Unavailable [phone] Mamadou Loving DO Unavailable [phone] Roger Jorgensen GIRL FRIDAY Unavailable Rinku Carrizales MD Unavailable [phone] Ezra Denney NP Primary Care Provider + Encounter Details Date Type Department Care Team (Latest Contact Info) Description 09/12/2017 Ancillary Orders Non-Invasive Cardiology [address] [place] [id number] Tony Miranda MD [address] [place] [address] [email or web address] Ischemic cardiomyopathy Social History Tobacco Use Types [...] Info) Description 08/24/2024 Procedure Pass Echo Lab [address] [place] [address] 04/18/2025 11:45 AM EST Office Visit [facility] [address] [place] [address] 3rd Floor, [address] [place] [address] Tony Sargent, [address] [place] [address] [email or web address] 08/24/2025 11:15 AM EDT Appointment Echo Lab [address] [place] [address] Tony Sargent, [address] [place] [address] documented as of this encounter Results * [...] device: Ischemic cardiomyopathy Examination: Device type: ICD Plant Protection Guard: Medtronic Mode: VVI LRL/URL: 40/- bpm Thresholds, [...] disease documented in this encounter Care Teams Track Mechanic Relationship Specialty Start Date End Date Mamadou Loving DO [address] [place] [address] PCP - General 02/20/17 07/06/19 Ezra Denney NP [address] [place] [address] [place] [address] PCP - General Family Medicine 07/07/19 Seymour Ferris NP [address] [facility] [address] [address] [email or web address] Historical LMR Provider 02/20/1705/12/21 Tony Miranda MD [address] [facility] [facility] 100 [place] [address] [email or web address] Historical LMR Provider 02/20/17 Keyla Melton PA Historical LMR Provider 02/20/17 05/12/21 Jamie Soto MD [address] [place] [address], [facility] 301 [place] [address] [email or web address] Historical LMR Provider 02/20/17 Mamadou Loving DO [address] [place] [address] Historical LMR Provider 02/20/17 Roger Jorgensen NP [address] [place] [phone] Historical LMR Provider 02/20/17 2 Rinku Carrizales MD [address] [place] [address] [email or web address] Historical LMR Provider 02/20/17 documented as of this encounter Additional Source Comments The information contained in this document represents components of the legal health record. It is not the complete legal health record.[facility]
--- OUTSIDE RECORDS SUMMARY | 2025-03-29 15:57 | XMS_ITS | Encounter Summary ---
Author Organization [facility] Address [address] [place] [address] Phone Care Team Providers Care Agricultural Economics Professor Name Role Phone Tony Miranda MD Unavailable Jamie Soto MD Unavailable Rinku Carrizales MD Unavailable [phone] Ezra Denney FIRMWARE ENGINEER Primary Care Provider + Encounter Details Date Type Department Care Team (Late st Contact Info) Description 12/17/2021 Procedure Pass Echo Lab [address] [place] [address] Social History Tobacco Use Types Packs/Day Years [...] Info) Description 08/24/2024 Procedure Pass Echo Lab [address] [place] [address] 04/18/2025 11:45 AM EST Office Visit [facility] [address] Floor, [address] [place] [address] Tony Sargent, DO [address] [address] 08/24/2025 11:15 AM EDT Appointment Echo Lab [address] [place] [address] Tony Sargent, DO [address] [address] documented as of this encounter Visit Diagnoses Not on filedocumented in this encounter Care Teams Agricultural Economics Professor Relationship Specialty Start Date End Date Ezra Denney NP [address] [facility] [place] [address] PCP - General Family Medicine 07/07/19 Tony Miranda MD [email or web address] Historical LMR Provider 02/20/17 Jamie Soto MD 22 [facility], [address] [address] [email or web address] Historical LMR Provider 02/20/17 Rinku Carrizales MD [address] [address] [email or web address] Historical LMR Provider 02/20/17 documented as of this encounter Additional Source Comments The information contained in this document represents components of the legal health record. It is not the complete legal health record.[facility]
--- OUTSIDE RECORDS SUMMARY | 2025-03-29 15:57 | XMS_ITS | Encounter Summary ---
Author Organization [facility] Address [address] [place] [address] [address] [place] [address] Phone Care Team Providers Care Stave Log Ripsaw Operator Name Role Phone Mamadou Loving DO Primary Care Provider [phone] Seymour Freris BRIDGE GAME DIRECTOR Unavailable Tony Miranda MD Unavailable Keyla Melton Unavailable [email or web address] Jamie Soto MD Unavailable [phone] Mamadou Loving DO Unavailable Roger Jorgensen BRIDGE GAME DIRECTOR Unavailable [phone] Rinku Carrizales MD Unavailable [phone] Ezra Denney NP Primary Care Provider + Encounter Details Date Type Department Care Team (Late st Contact Info) Description 11/12/2018 Ancillary Orders [facility] Vascular Surgery [address] [facility], 4th Floor, [address] [place] [address] Rinku Smith MD [address] [place] [phone] [email or web address] PAD (peripheral artery disease) Social History [...] Info) Description 08/24/2024 Procedure Pass Echo Lab [address] [place] [address] 04/18/2025 11:45 AM EST Office Visit [facility] [address] 3rd Floor, [address] [place] [address] [address]arg[address] [address] 08/24/2025 11:15 AM EDT Appointment Echo Lab [address] [place] [place] [address] Tony Sargent [address] [place] [address] [place] [address] Scheduled Orders Name Type Priority Associated Diagnoses Orde r Schedule US Lower Extremity Arteries Duplex (Left) Vascular Routine PAD (peripheral artery disease) 1 Occurrences starting 11/12/2018 until 02/12/2019 documented as of this encounter Visit Diagnoses Diagnosis PAD (peripheral artery disease) Unspecified peripheral vascular disease documented in this encounter Care Teams Stave Log Ripsaw Operator Relationship Specialty Start Date End Date Mamadou Loving DO [address] [place] [address] PCP - General 02/20/17 07/06/19 Ezra Denney NP [address] [facility] [place] [address] PCP - General Family Medicine 07/07/19 Seymour Ferris, NACHO [address] [facility] 100 [place] [address] [email or web address] Historical LMR Provider 02/20/1705/12/21 Tony Miranda MD [address] [facility] 100 [place] [address] [email or web address] Historical LMR Provider 02/20/17 Keyla Melton PA [email or web address] Historical LMR Provider 02/20/17 05/12/21 Jamie Soto MD [address] [address] [email or web address] Historical LMR Provider 02/20/17 Mamadou Loving DO [address] [place] [address] Historical LMR Provider 02/20/17 Roger Jorgensen, NACHO [address] [place] [address] [phone] Historical LMR Provider 02/20/17 Rinku Bermudez MD [address] [address] [email or web address] Historical LMR Provider 02/20/17 documented as of this encounter Additional Source Comments The information contained in this document represents components of the legal health record. It is not the complete legal health record.[facility]
--- OUTSIDE RECORDS SUMMARY | 2025-03-29 15:58 | XMS_ITS | Encounter Summary ---
Author Organization [facility] Address [address] [place] [address] Phone Care Team Providers Care Letter Of Credit Document Examiner Name Role Phone Mamadou Loving DO Primary Care Provider [phone] Seymour Ferris FONDANT MACHINE OPERATOR Unavailable Tony Miranda MD Unavailable Keyla Melton Unavailable [email or web address] Jamie Soto MD Unavailable Mamadou Loving DO Unavailable [phone] Roger Jorgensen FONDANT MACHINE OPERATOR Unavailable Rinku Carrizales MD Unavailable [phone] Ezra Denney NP Primary Care Provider + Encounter Details Date Type Department Care Team (Late st Contact Info) Description 09/02/2018 Procedure Pass [facility] PERIOPERATIVE DEPT [address] [place] [address] Social History Tobacco Use Types [...] Upcoming Encounters Date Type Department Care Team ([facility] st Contact Info) Description 08/24/2024 Procedure Pass Echo Lab [address] [place] [address] 04/18/2025 11:45 AM EST Office Visit [facility] [address] 3rd Floor, [address] [place] [address] Tony Sargent, DO [address] [place] [address] 08/24/2025 11:15 AM EDT Appointment Echo Lab [address] [place] [address] Tony Sargent DO [address] [place] [address] documented as of this encounter Visit Diagnoses Not on filedocumented in this encounter Care Teams Letter Of Credit Document Examiner Relationship Specialty Start Date End Date Mamadou Loving DO [address] [place] [address] PCP - General 02/20/17 07/06/19 Ezra Denney NP [facility] [place] [address] PCP - General Family Medicine 07/07/19 Seymour Ferris NP [address] [place] [address] Historical LMR Provider 02/20/1705/12/21 Tony Miranda MD [address] [place] [address] [email or web address] Historical LMR Provider 02/20/17 Keyla Melton PA Historical LMR Provider 02/20/17 05/12/21 Jamie Soto MD 22 [facility] 301 [place] [address] [email or web address] Historical LMR Provider 02/20/17 Mamadou Loving DO [address] [place] [address] Historical LMR Provider 02/20/17 Roger Jorgensen NP [address] [place] [address] 2[address] [place] [phone] Historical LMR Provider 02/20/17 2 Rinku Carrizales MD [address] [address] [email or web address] Historical LMR Provider 02/20/17 documented as of this encounter Additional Source Comments The information contained in this document represents components of the legal health record. It is not the complete legal health record.[facility]
== END 2025-03-29 13:32 | disposition home or self-care (01) ==
LOC: HO.HGI 12:16
PROVIDERS: PCP Nurse Practitioner Family; Visit Provider Nurse Practitioner Family
DX: R10.13 Epigastric pain (principal); F10.11 Alcohol abuse, in remission
CPT/HCPCS: 99204

== ENCOUNTER → 2025-03-29 12:15 | Outpatient (BNVA) | payer MEDICARE, SELFPAY | PROVIDERS: PCP Nurse Practitioner Family; Visit Provider Nurse Practitioner Family | DX: R10.13 Epigastric pain (principal); K21.9 Gastro-esophageal reflux disease without esophagitis; F10.11 Alcohol abuse, in remission; Z12.11 Encounter for screening for malignant neoplasm of colon | CPT/HCPCS: 99202 ==

== ENCOUNTER 2025-04-14 12:50 | Outpatient (AMB) | payer MEDICARE, SELFPAY ==
[2025-04-14 12:56] VITALS: BP 118/70; PULSE 61; O2SAT 98; BMI 26.5
--- NOTE | 2025-04-14 12:56 | A.OFFPC_ITS ---
Vital Signs 04/14/25 12:56 Height 5 ft 11 in Weight 190 lb BMI 26.5 BP 118/70 Blood Pressure Location Lt brachial Position Sitting Pulse 61 Pulse Source Pulse Oximeter Pulse Oximetry (%) 98 Intake Visit Reasons: hdf chest pain Allergies Penicillins (PENICILLINS) Allergy (Intermediate, Verified 04/14/25 12:57) ITCHY RASH Tobacco use date assessed: 01/04/25 Dental Screening Dental Screen Date: 01/04/25 HPI HPI Comments History of Present Illness Details Patient is a 75-year-old male, here with his , with a history of CAD, AFib on Eliquis, CABG, HTN, HLD, HFrEF with EF of 20-25% in December 2024, T2DM, depression, hypothyroidism, chronic stable angina, recent pacemaker/AICD replacement here for a HDF. He presented to [facility] on 01/[facility]/2025 with acute onset of substernal chest pain that radiates into both axilla but not into his back and not into his jaw. He tried nitroglycerin at home without relief and called EMS who gave him aspirin. EKG in the ED showed AV dual paced rhythm at 60 beats per minute. Chest x-ray was negative for any acute process, labs were relatively normal in his troponin was negative. The ED spoke with his christmas tree grower from [facility] who agreed he should be admitted for ACS rule out, he also asked for an echo. While in the hospital, his chest pain significantly improved and he was discharged home on February 01. An echocardiogram was ordered to be done outpatient. This has not been done yet, he sees his Cards next week. His TTE is scheduled for August. He had additional emergency room visits on March 09 and March 19, both of which resulted in negative workup and him being sent home. [facility] and was RX'd Pepcid BID which he has been taking, and notes marked improvement in his pain. He also was given a referral to GI. He went to this appt last week and they ordered as below. 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 - His medications include levothyroxine on a variable schedule, vitamin B12, and a zinc with copper supplement. - There was a previous prescription for calcium carbonate 500 mg twice daily which the pharmacy could not fill, leading to him taking an [id number] 600 mg calcium supplement once daily; he also takes 2000 units of vitamin D. Review of Systems - General: Denies dizziness and lighthea dedness. - Cardiovascular: Denies recent chest pa in or burning sensation in the chest. - Gastrointestinal: Reports improvement of epigastric pain. - Respiratory: Denies shortness of breat h, cough, and frequent throat clearing. - Musculoskeletal: Reports left shoulder pain secondary to arthritis. - Denies any new back pain. All systems reviewed and are unremarkable except as noted in HPI Physical Exam General: Cooperative, healthy appearing, comfortable, no acute distress and well developed Orientation: Patient oriented x3 Limitations: No limitations Head: Normal to inspection Ears: Hearing grossly normal bilaterally Nose: Normal External nose present Face and sinus: Normal facial exam Eyes: Appearance normal, both eyes and all related structures Neck: Normal visual inspection and Yes full ROM Respiratory: Normal respiratory effort and able to speak in complete sentences. Clear to auscultation throughout, no wheezes, rales and rhonchi. Cardiac: Regular rate and rhythm, Normal S1 and S2, no murmurs, rubs or gallops. Skin: No rashes or lesions noted Neuro: Patient oriented x3, gait normal Extremities: Normal to inspection [facility] Medical History (Updated 04/14/25 @ 13:37 by Gina Philippe PA-C) Epigastric pain STEMI (ST elevation myocardial infarction) Fall Atrial fibrillation with RVR Respiratory failure Limbic encephalitis Hypotension History of blood transfusion Osteopenia Hyperparathyroidism Severe obstructive sleep apnea Hypothyroidism Familial hypocalciuric hypercalcemia Vitamin D deficiency HTN (hypertension) Carpal tunnel syndrome of left wrist Ischemic cardiomyopathy Left carpal tunnel syndrome PTSD (post-traumatic stress disorder) FÉLIX (obstructive sleep apnea) Pulmonary nodule Paroxysmal atrial fibrillation Depression CAD (coronary artery disease) Surgical History Hx of cataract Hx of total knee replacement History of AAA (abdominal aortic aneurysm) repair AICD (automatic cardioverter/defibrillator) present Hx of colonoscopy Hx of discectomy Hx of appendectomy Hx of tonsillectomy S/P CABG x 6 Family History Father CAD (coronary artery disease) Substance use disorder Mother CVA (cerebral vascular accident) Paternal Uncle Substance use disorder Other Mental health disorder Social History Household Members: Spouse Housing: House Are you a primary client care specialist to a significant other at home: No Do you presently have visiting nurse or other home services: No Alcohol intake: never Comment: aware of trip hazard Patient Tobacco Use Status: Current someday Tobacco user Tobacco use type: Cigar e-Cigarette/Vaping Use: Never Used Second Hand Smoke Exposure: No Substance Use Type: Marijuana Advance Directives Date on File: 07/27/21 service: No Current occupational status: retired Sexual orientation: Straight/Heterosexual Cognitive needs: No Hearing needs: No Vision needs: Yes Questionnaire Thrive Questionnaire Date Thrive assessed: 07/20/24 I am a: Parent/Caregiver What is your living situation today?: I have a steady place to live Within the past 12 months, did the food you bought not last and you didn't have the money to get more?: Never true Within the past 12 months, did you worry whether your food would run out before you got money to buy more?: Never true Do you have trouble paying for medicines?: No Do you have trouble getting transportation to medical appointments?: No Do you have trouble paying your heating and electricity bill?: No Do you have trouble taking care of your child, family member or friend?: No Do you have trouble with day-to-day activities such as bathing, preparing meals, shopping, managing finances, etc.?: No Are you currently unemployed and looking for a job?: No Are you interested in more education?: No Please select the resources that you would like help with: None THRIVE Score: 0 AUDIT C Alcohol Use Questionnaire (AUDIT-C) 2. How many drinks containing alcohol do you have on a typical day when you are drinking?: 1 or 2 Total Score: 0 TOBIAS-7 AMB Questionnaire TOBIAS-7 Date TOBIAS - 7 assessed: 12/16/23 Source: Developed by Drs. Jason Michel, Porsche Aguilar, Missael Lindsay and colleagues, with an educational angela from [employer]. Review of Systems Const All systems reviewed & are unremarkable except as noted in HPI and below Physical exam (Primary Care) Tobacco/Smoking Status: Tobacco use Status Tobacco use date assessed 01/04/25 01/04/25 11:44 Patient Tobacco Use Status Current someday Tobacco 03/23/25 13:07 Tobacco use type Cigar 01/04/25 11:32 e-Cigarette/Vaping Use Never Used 01/04/25 11:32 Thrive Assessment: Date of Thrive Assessment Date Thrive assessed 07/20/24 01/04/25 11:32 Coding Level of Care Code Est Pt Level 4 (08891) Diagnoses Hospital discharge follow-up Z09 Atypical chest pain R07.89 Assessment & Plan Assessment & Plan (1) Hospital discharge follow-up: Code(s): Z09 - Encounter for follow-up examination after completed treatment for conditions other than malignant neoplasm Category: Medical Plan: Epigastric Pain, likely GI related The patient's epigastric pain has significantly improved with famotidine, suggesting a GI etiology rather than cardiac. The plan is to continue with the scheduled GI workup, including labs, an abdominal ultrasound and an upper GI series, to further evaluate the cause. Will continue famotidine as it is providing relief. Patient was informed and verbally consented to the use of an ambient scribe for clinic note documentation during this visit. (2) Atypical chest pain: Code(s): R07.89 - Other chest pain Category: Medical Plan: The patient has a known history of heart failure with a severely reduced ej ection fraction (20-25%) and a prior heart attack. He is currently asymptomatic from a cardiac standpoint and his heart rhythm was regular on exam. He will follow up with his christmas tree grower this Friday, and have TTE outpatient. The patient was counseled that due to his significant cardiac history, any new or atypical chest pain should not be dismissed as GI-related and requires immediate medical evaluation. Medications: Refilled calcium carbonate 500 mg PO BID 180 tabs 1RF
== END 2025-04-14 14:10 | disposition home or self-care (01) ==
LOC: HO.HMCC 12:51
PROVIDERS: PCP Nurse Practitioner Family; Visit Provider Physician Assistant
DX: Z09 Encounter for follow-up examination after completed treatment for conditions other than malignant neoplasm (principal); R07.89 Other chest pain

== ENCOUNTER → 2025-04-14 12:50 | Outpatient (BNVA) | payer MEDICARE, SELFPAY | PROVIDERS: PCP Nurse Practitioner Family; Visit Provider Physician Assistant | DX: Z09 Encounter for follow-up examination after completed treatment for conditions other than malignant neoplasm (principal); R07.89 Other chest pain | CPT/HCPCS: 99212 ==

== ENCOUNTER 2025-05-04 09:26 | Outpatient (REF) | payer MEDICARE, SELFPAY ==
--- OUTSIDE RECORDS SUMMARY | 2025-05-04 09:44 | XMS_ITS | Encounter Summary ---
Author Organization [facility] Address [address] [place] [address] [place] [address] Phone Care Team Providers Care Clinical Support Manager Name Role Phone Mamadou Loving DO Primary Care Provider [phone] Seymour Ferris HEAD LINEMAN Unavailable Tony Miranda MD Unavailable Keyla Melton Unavailable [email or web address] Jamie Soto MD Unavailable [phone] Mamadou Loving DO Unavailable Roger Jorgensen HEAD LINEMAN Unavailable Rinku Carrizales MD Unavailable [phone] Ezra Denney NP Primary Care Provider + Encounter Details Date Type Department Care Team (Latest Contact Info) Description 07/10/2017 Ancillary Orders [facility] 22 [facility] 3rd Floor, [address] [place] [address] Rinku Carrizales MD [address] [address] [email or web address] Cardiomyopathy, unspecified type Social History Tobacco Use Types Packs/Day Years Used Date Smoking Tobacco: Never Assessed Sex and Gender Information Value Date Recorded Sex Assigned at Male 02/18/2023 7:50 AM EDT Legal Sex Male 5:07 PM EST Gender Identity Male 02/18/2023 7:50 AM EDT Sexual Orientation Straight 02/18/2023 7 :50 AM EDT documented as of this encounter Plan of Treatment Upcoming Encounters Date Type Department Care Team (Late st Contact Info) Description 08/24/2024 Procedure Pass [facility] [address] [place] [address] 04/18/2025 Procedure Pass [facility] [address], [address] [place] [address] 08/24/2025 11:15 AM EDT Appointment [facility] [address] [place] [address] Toyn Sargent [address] [address] [email or web address] 10/18/2025 9:15 AM EDT Appointment [facility] [address] [place] [address] Tony Sargent [address] [address] [email or web address] 10/31/2025 9:45 AM EDT Office Visit [facility] [address] [place] [address] [place] [address], [address] [place] [address] Tony Sargent DO [address] [place] [address] [place] [address] [email or web address] documented as of this encounter Results * DEVICE CHECK: ICD IN-PERSON PROGRAMMING?? SINGLE LEAD (07/10/2017 2:29 PM EST) Narrative Ramón Ribeiro MD, MPH - 08/01/2017 2:36 PM EDT Reason for appointment: In-office ICD interrogation HPI: Routine in-office ICD interrogation. No device related complaints. Indication for device:Cardiomyopathy Examination: Device type: ICD Doctor Assistant: Medtronic Mode: VVI LR/UP: 40/- bpm Thresholds, [...] type documented in this encounter Care Teams Clinical Support Manager Relationship Specialty Start Date End Date Mamadou Loving DO 5 [place] [address] PCP - General 02/20/17 07/06/19 Ezra Denney NP [address] [place] [address] [place] [address] PCP - General Family Medicine 07/07/19 Seymour Ferris NP [address] [address] [email or web address] Historical LMR Provider 02/20/1705/12/21 Tony Miranda MD [address] [address] [email or web address] Historical LMR Provider 02/20/17 Keyla Melton PA Historical LMR Provider 02/20/17 05/12/21 Jamie Soto MD [address] [place] [address], [facility] [address] [place] [address] [email or web address] Historical LMR Provider 02/20/17 Mamadou Loving DO [address] [place] [address] Historical LMR Provider 02/20/17 Roger Jorgensen NP [address] [place] [address] Historical LMR Provider 02/20/17 2 Rinku Carrizales MD [address] [place] [address] [email or web address] Historical LMR Provider 02/20/17 documented as of this encounter Additional Source Comments The information contained in this document represents components of the legal health record. It is not the complete legal health record.[facility]
--- OUTSIDE RECORDS SUMMARY | 2025-05-04 09:45 | XMS_ITS | Encounter Summary ---
Author Organization [facility] Address [address] [place] [address] Phone Care Team Providers Care Qa Reviewer Name Role Phone Mamadou Loving DO Primary Care Provider [phone] Seymour Ferris REFRIGERATION REPAIR SUPERVISOR Unavailable Tony Miranda MD Unavailable Keyla Melton Unavailable [email or web address] Jamie Soto MD Unavailable Mamadou Loving DO Unavailable Roger Jorgensen REFRIGERATION REPAIR SUPERVISOR Unavailable Rinku Carrizales MD Unavailable [phone] Ezra Denney NP Primary Care Provider + Encounter Details Date Type Department Care Team (Latest Contact Info) Description 04/08/2017 Ancillary Orders Salvador [facility] Non-Invasive Cardiology [address] [place] [address] Tony [place] [address] [email or web address] Ischemic cardiomyopathy Social History Tobacco Use [...] st Contact Info) Description 08/24/2024 [facility] [address] [place] [address] 04/18/2025 Procedure Pass [facility] [address] [place] [address] [place] [address], [address] [place] [address] 08/24/2025 11:15 AM EDT Appointment [facility] [address] [place] [address] Tony Sargent [address] [place] [address] [email or web address] 10/18/2025 9:15 AM EDT Appointment [facility] [address] [place] [address] [place] [address] Tony Sargent DO [address] [place] [address] [place] [address] [email or web address] 10/31/2025 9:45 AM EDT Office Visit [facility] [address] [place] [address], [address] [place] [address] Tony Sargent DO [address] [place] [address] [place] [address] [email or web address] documented as of this encounter Results * DEVICE CHECK: ICD IN-HOME INTERROGATION (04/08/2017 11:28 AM EST) Narrative Tony Miranda MD - 04/08/2017 8:00 PM EST Reason for appointment: Remote ICD interrogation HPI: Routine 3 month remote ICD interrogation. No device related complaints. Indication for device ICM. Examination: Device type: ICD Wire Sawyer: MDRosmery Thresholds, impedances, and sensing stable. Mode switches: 0 High V rates: 0 Alerts: 0 Ventricular pacing 1.7 % of the time. Battery: Longevity is stable 9.2 yrs . Normal device function. Case reviewed with supervising physician. Patient to follow-up for continued monitoring. Tony Miranda MD CV CARDIAC SERVICES ORDER LILA Final Result documented in this encounter Visit Diagnoses Diagnosis Diagnosis unknown Ischemic cardiomyopathy Other specified forms of chronic ischemic heart disease Ischemic cardiomyopathy Other specified forms of chronic ischemic heart disease documented in this encounter Care Teams Qa Reviewer Relationship Specialty Start Date End Date Mamadou Loving DO 5 [place] [address] PCP - General 02/20/17 07/06/19 Ezra Denney NP [facility] [place] [address] PCP - General Family Medicine 07/07/19 Seymour Ferris NP [address] [facility] [address] [address] Historical LMR Provider 02/20/1705/12/21 Tony Miranda MD 101 [facility] [address] [facility] 100 [place] [address] [email or web address] Historical LMR Provider 02/20/17 Keyla Melton PA Historical LMR Provider 02/20/17 05/12/21 Jamie Soto MD [address] [place] [address], [address] [place] [address] Historical LMR Provider 02/20/17 Mamadou Loving DO [address] [place] [address] Historical LMR Provider 02/20/17 Roger Jorgensen NP [address] [place] [phone] Historical LMR Provider 02/20/17 2 Rinku Carrizales MD [address] [address] [email or web address] Historical LMR Provider 02/20/17 documented as of this encounter Additional Source Comments The information contained in this document represents components of the legal health record. It is not the complete legal health record.[facility]
--- OUTSIDE RECORDS SUMMARY | 2025-05-04 09:45 | XMS_ITS | Encounter Summary ---
Author Organization [facility] Address [address] [place] [address] Phone Care Team Providers Care Pecan Cleaner Name Role Phone Mamadou Loving DO Primary Care Provider [phone] Seymour Ferris CUSTOMER ACCOUNT REPRESENTATIVE Unavailable [phone] Tony Miranda MD Unavailable Keyla Melton Unavailable [email or web address] Jamie Soto MD Unavailable [phone] Mamadou Loving DO Unavailable Roger Jorgensen CUSTOMER ACCOUNT REPRESENTATIVE Unavailable Rinku Carrizales MD Unavailable [phone] Ezra Denney NP Primary Care Provider + Encounter Details Date Type Department Care Team (Late st Contact Info) Description 02/22/2017 Ancillary Orders [facility] [address] [place] [address] Tony Miranda MD [address] [place] [address] [place] [address] Social History Tobacco Use Types Packs/Day Years [...] st Contact Info) Description 08/24/2024 Procedure Pass [facility] [address] [place] [address] 04/18/2025 Procedure Pass [facility] [address] [facility], [address] [place] [address] 08/24/2025 11:15 AM EDT Appointment [facility] [address] [place] [address] Tony Sargent [address] [address] [email or web address] 10/18/2025 9:15 AM EDT Appointment [facility] [address] [place] [address] Tony Sargent DO [address] [place] [address] 10/31/2025 9:45 AM EDT Office Visit [facility] [address] [place] [address], [address] [place] [address] Tony Sargent DO [address] [place] [address] documented as of this encounter Visit Diagnoses Not on filedocumented in this encounter Care Teams Pecan Cleaner Relationship Specialty Start Date End Date Mamadou Loving DO [address] [place] [address] PCP - General 02/20/17 07/06/19 Ezra Denney NP [address] [facility] [place] [address] PCP - General Family Medicine 07/07/19 Seymour Ferris, NACHO [address] [address] [email or web address] Historical LMR Provider 02/20/1705/12/21 Tony Miranda MD 101 [facility] 100 [place] [address] [email or web address] Historical LMR Provider 02/20/17 Keyla Melton PA [email or web address] Historical LMR Provider 02/20/17 05/12/21 Jamie Soto MD [address] [place] [address] [email or web address] Historical LMR Provider 02/20/17 Mamadou Loving DO [address] [place] [address] Historical LMR Provider 02/20/17 Roger Jorgensen NP [address] [place] [address] [address] Historical LMR Provider 02/20/17 Rinku Bermudez MD [address] [place] [address] [email or web address] Historical LMR Provider 02/20/17 documented as of this encounter Additional Source Comments The information contained in this document represents components of the legal health record. It is not the complete legal health record.[facility]
--- OUTSIDE RECORDS SUMMARY | 2025-05-04 09:45 | XMS_ITS | Encounter Summary ---
Author Organization [facility] Address [address] [place] [address] Phone Care Team Providers Care Qa Lead Name Role Phone Mamadou Loving DO Primary Care Provider [phone] Seymour Ferris ACCESS REPRESENTATIVE Unavailable Tony Miranda MD Unavailable Keyla Melton Unavailable [email or web address] Jamie Soto MD Unavailable Mamadou Loving DO Unavailable Roger Jorgensen ACCESS REPRESENTATIVE Unavailable Rinku Carrizales MD Unavailable [phone] Ezra Denney NP Primary Care Provider + Encounter Details Date Type Department Care Team (Late st Contact Info) Description 02/22/2017 Ancillary Orders Salvador [facility] Non-Invasive Cardiology [address] [place] [address] Tony Miranda MD [address] [place] [address] [email or web address] Diagnosis unknown Social History Tobacco Use Types [...] st Contact Info) Description 08/24/2024 Procedure Pass [facility] [address] [place] [address] 04/18/2025 Procedure Pass [facility] [address], [address] [place] [address] 08/24/2025 11:15 AM EDT Appointment [facility] [address] [place] [address] Tony Sargent [address] [address] 10/18/2025 9:15 AM EDT Appointment [facility] [address] [place] [address] Tony Sargent [address] [address] 10/31/2025 9:45 AM EDT Office Visit [facility] [address] [place] [address] [place] [address], [address] [place] [address] Tony Sargent DO [address] [place] [address] documented as of this encounter Visit Diagnoses Diagnosis Diagnosis unknown documented in this encounter Care Teams Qa Lead Relationship Specialty Start Date End Date Mamadou Loving DO 575 [place] [address] PCP - General 02/20/17 07/06/19 Ezra Denney NP [address] [facility] [place] [address] PCP - General Family Medicine 07/07/19 Seymour Ferris, NACHO 101 [facility] 100 [place] [address] [email or web address] Historical LMR Provider 02/20/1705/12/21 Tony Miranda MD 101 [facility] 100 [place] [address] [email or web address] Historical LMR Provider 02/20/17 Keyla Melton PA [email or web address] Historical LMR Provider 02/20/17 05/12/21 Jamie Soto MD [address] [place] [address] [email or web address] Historical LMR Provider 02/20/17 Mamadou Loving DO [address] [place] [address] Historical LMR Provider 02/20/17 Roger Jorgensen NP [address] [place] [address] [address] Historical LMR Provider 02/20/17 Rinku Bermudez MD [address] [place] [address] [email or web address] Historical LMR Provider 02/20/17 documented as of this encounter Additional Source Comments The information contained in this document represents components of the legal health record. It is not the complete legal health record.[facility]
--- OUTSIDE RECORDS SUMMARY | 2025-05-04 09:45 | XMS_ITS | Encounter Summary ---
Author Organization [facility] Address [address] [place] [address] Phone Care Team Providers Care Wood Getter Name Role Phone Tony Miranda MD Unavailable Jamie Soto MD Unavailable [phone] Rinku Carrizales MD Unavailable [phone] Ezra Denney AIR TOOL OPERATOR Primary Care Provider + Encounter Details Date Type Department Care Team (Late st Contact Info) Description 03/05/2024 Procedure Pass [facility] 22 [place] [address] Social History Tobacco Use Types [...] st Contact Info) Description 08/24/2024 Procedure Pass [facility] [address] [place] [address] 04/18/2025 Procedure Pass [facility] [address], [address] [place] [address] 08/24/2025 11:15 AM EDT Appointment [facility] [address] [place] [address] Tony Sargent [address] [address] [email or web address] 10/18/2025 9:15 AM EDT Appointment [facility] [address] [place] [address] Tony Sargent DO [address] [place] [address] [place] [address] 10/31/2025 9:45 AM EDT Office Visit [facility] [address], [address] [place] [address] Tony Sargent DO [address] [address] documented as of this encounter Visit Diagnoses Not on filedocumented in this encounter Care Teams Wood Getter Relationship Specialty Start Date End Date Ezra Denney NP [address] [facility] [place] [address] PCP - General Family Medicine 07/07/19 Tony Miranda MD [email or web address] Historical LMR Provider 02/20/17 Jamie Soto MD [address] [place] [address] [email or web address] Historical LMR Provider 02/20/17 Rinku Carrizales MD [address] [place] [address] [email or web address] Historical LMR Provider 02/20/17 documented as of this encounter Additional Source Comments The information contained in this document represents components of the legal health record. It is not the complete legal health record.[facility]
--- OUTSIDE RECORDS SUMMARY | 2025-05-04 09:45 | XMS_ITS | Encounter Summary ---
Author Organization [facility] Address [address] [place] [address] [place] [address] Phone Care Team Providers Care Dna Analyst Name Role Phone Tony Miranda MD Unavailable Jamie Soto MD Unavailable Rinku Carrizales MD Unavailable [phone] Ezra Denney NP Primary Care Provider + Encounter Details Date Type Department Care Team (Late st Contact Info) Description 01/27/2025 Procedure Pass [facility] - [address] [address] Social History Tobacco Use Types Packs/Day Years [...] st Contact Info) Description 08/24/2024 Procedure Pass Salvador [place] [address] [place] [address] 04/18/2025 Procedure Pass [facility] [address] 3[address] Floor, [address] [place] [address] 08/24/2025 11:15 AM EDT Appointment [facility] 22 [place] [address] Tony Sargent, DO 22 [facility] [address] [place] [address] 10/18/2025 9:15 AM EDT Appointment [facility] [address] 3rd [place] [address] Tony Sargent, DO [address] [address] 10/31/2025 9:45 AM EDT Office Visit [facility] [address], [address] [address] Tony Sargent, DO [address] [address] documented as of this encounter Visit Diagnoses Not on filedocumented in this encounter Care Teams Dna Analyst Relationship Specialty Start Date End Date Ezra Denney NP [address] [facility] [place] [address] PCP - General Family Medicine 07/07/19 Tony Miranda MD [email or web address] Historical LMR Provider 02/20/17 Jamie Soto MD [address] [place] [address], [address] [address] [email or web address] Historical LMR Provider 02/20/17 Rinku Carrizales MD [address] [place] [address] [email or web address] Historical LMR Provider 02/20/17 documented as of this encounter Additional Source Comments The information contained in this document represents components of the legal health record. It is not the complete legal health record.[facility]
--- OUTSIDE RECORDS SUMMARY | 2025-05-04 09:45 | XMS_ITS | Encounter Summary ---
Author Organization [facility] Address [address] [place] [address] [place] [address] Phone Care Team Providers Care Reverse Unit Operator Name Role Phone Mamadou Loving DO Primary Care Provider [phone] Seymour Ferris DELIVERY STOCK CLERK Unavailable [phone] Tony Miranda MD Unavailable Keyla Melton Unavailable [email or web address] Jamie Soto MD Unavailable [phone] Mamadou Loving DO Unavailable Roger Jorgensen DELIVERY STOCK CLERK Unavailable Rinku Carrizales MD Unavailable [phone] Ezra Denney NP Primary Care Provider + Encounter Details Date Type Department Care Team (Latest Contact Info) Description 02/22/2017 Ancillary Orders [facility] 22 [facility] 3rd Floor, [address] [place] [address] Rinku Carrizales MD [address] [place] [address] [email or web address] Diagnosis unknown Social History Tobacco Use [...] Contact Info) Description 08/24/2024 Procedure Pass [facility] [address] [place] [address] 04/18/2025 Procedure Pass [facility] [address] [facility], [address] [place] [address] 08/24/2025 11:15 AM EDT Appointment [facility] [address] [place] [address] Tony Sargent [address] [address] [email or web address] 10/18/2025 9:15 AM EDT Appointment [facility] [address] [place] [address] Tony Sargent DO [address] [place] [address] 10/31/2025 9:45 AM EDT Office Visit [facility] [address] [place] [address], [address] [place] [address] Tony Sargent DO [address] [place] [address] [email or web address] documented as of this encounter Visit Diagnoses Diagnosis Diagnosis unknown documented in this encounter Care Teams Reverse Unit Operator Relationship Specialty Start Date End Date Mamadou Loving DO [address] [place] [address] PCP - General 02/20/17 07/06/19 [place] [address] [place] [address] [place] [address] PCP - General Family Medicine 07/07/19 Seymour Ferris, NACHO [address] [address] [email or web address] Historical LMR Provider 02/20/1705/12/21 Tony Miranda MD [address] [address] [email or web address] Historical LMR Provider 02/20/17 Keyla Melton PA [email or web address] Historical LMR Provider 02/20/17 05/12/21 Jaime Soto MD [address] [place] [address] [email or web address] Historical LMR Provider 02/20/17 Mamadou Loving DO [address] [place] [address] Historical LMR Provider 02/20/17 Roger Jorgensen NP [address] [place] [address] [address] Historical LMR Provider 02/20/17 2 Rinku Carrizales MD [address] [place] [address] [email or web address] Historical LMR Provider 02/20/17 documented as of this encounter Additional Source Comments The information contained in this document represents components of the legal health record. It is not the complete legal health record.[facility]
--- OUTSIDE RECORDS SUMMARY | 2025-05-04 09:45 | XMS_ITS | Encounter Summary ---
Author Organization [facility] Address [address] [place] [address] Care Team Providers Care Instructional Support Services Director Name Role Phone Ezra Denney NACHO Primary Care Provider Encounter Details Date Type Department Care Team (Late Contact Info) Description 06/07/2024 Lab Requisition [facility] - Main Lab [address] [facility] [place] [address] Eugene Wilson MD [address] [place] [address] Encounter for other general examination Social History [...] 07/18/2025 11:00 AM EDT Office Visit Endocrinology [address] [address] Colin Martinez MD [address] [place] [address] documented as of this encounter Procedures Procedure Name Priority Date/Time Associated Diagnosis Comments COMPLETE BLOOD COUNT Routine 06/07/2024 7:01 AM EST Encounter for other general examination BASIC METABOLIC PANEL Routine 06/07/2024 7:01 AM EST Encounter for other general examination documented in this encounter Results * Complete blood count (06/07/2024 7:01 AM EST) [facility] Signature WBC 6.1 4.8 - 10.8 K/mcL LAB HEMETOLOGY METHOD 06/07/2024 10:[address] [facility] RBC 4.60 4.50 - 5.50 M/mcL LAB HEMETOLOGY METHOD 06/07/2024 10:[address] [facility] Hemoglobin 13.9 13.5 - 17.5 g/dL LAB HEMETOLOGY METHOD 06/07/2024 10:[address] [facility] Hematocrit 43.1 42.0 - 54.0 % LAB HEMETOLOGY METHOD 06/07/2024 10:[address] [facility] MCV 93.7 79.0 - 98.0 FL LAB HEMETOLOGY METHOD 06/07/2024 10:[address] [facility] MCH 30.2 27.0 - 32.0 pcg LAB HEMETOLOGY METHOD 06/07/2024 10:[address] [facility] MCHC 32.3 32.0 - 37.0 g/dL LAB HEMETOLOGY METHOD 06/07/2024 10:[address] [facility] RDW 14.6 11.0 - 15.0 % LAB HEMETOLOGY METHOD 06/07/2024 10:[address] [facility] Platelets 187 130 - 400 K/mcL LAB HEMETOLOGY METHOD 06/07/2024 10:[address] [facility] MPV 10.9 7.0 - 11.0 FL LAB HEMETOLOGY METHOD 06/07/2024 10:[address] [facility] NRBC 0.0 <1.0 % LAB HEMETOLOGY METHOD 06/07/2024 10:[address] [facility] NRBC Absolute 0.00 <0.10 K/mcL LAB HEMETOLOGY METHOD 06/07/2024 10:[address] [facility] Blood Venous blood specimen / Unknown Venipuncture / Unknown 06/07/2024 7:01 AM EST 06/07/2024 9:23 AM EST us Eugene Wilson MD LAB BLOOD ORDERABLES Final Res ult [facility] [address] [place] [address], * (ABNORMAL) Basic metabolic panel (06/07/2024 7:01 AM EST) Sodium 142 133 - 145 mmol/L LAB CHEMISTRY METHOD 06/07/2024 11:[address] [facility] Potassium 4.0 3.5 - 5.5 mmol/L LAB CHEMISTRY METHOD 06/07/2024 11:[address] [facility] Chloride 107 96 - 110 mmol/L LAB CHEMISTRY METHOD 06/07/2024 11:[address] [facility] CO2 28 21 - 32 mmol/L LAB CHEMISTRY METHOD 06/07/2024 11:[address] [facility] Anion Gap 7 3 - 11 LAB CHEMISTRY METHOD 06/07/2024 11:[address] [facility] Glucose 65(L) 70 - 100 mg/dL LAB CHEMISTRY METHOD 06/07/2024 11:[address] [facility] BUN 15 5 - 25 mg/dL LAB CHEMISTRY METHOD 06/07/2024 11:[address] [facility] Creatinine 0.81 0.70 - 1.30 mg/dL LAB CHEMISTRY METHOD 06/07/2024 11:[address] [facility] eGFR 91 >=60 mL/min/1. 73m2 LAB CHEMISTRY METHOD 06/07/2024 11:[address] [facility] Comment:Calculation based on the Chronic Kidney Disease Epidemiology Collaboration (CKD-EPI) equation refit without adjustment for race. BUN/Creatinine Ratio 18.5 LAB CHEMISTRY METHOD 06/07/2024 11:08 AM EST [facility] Calcium 9.1 8.5 - 10.5 mg/dL LAB CHEMISTRY METHOD 06/07/2024 11:08 AM EST [facility] Blood Venous blood specimen / Unknown Venipuncture / Unknown 06/07/2024 7:01 AM EST 06/07/2024 9:23 AM EST us Eugene Wilson MD LAB BLOOD ORDERABLES Final Res ult [facility] [address] [place] [address], documented in this encounter Visit Diagnoses Diagnosis Encounter for other general examination documented in this encounter Care Teams Instructional Support Services Director Relationship Specialty Start Date End Date Ezra Denney NP [address] [place], [place] PCP - General 06/24/23 documented as of this encounter
--- OUTSIDE RECORDS SUMMARY | 2025-05-04 09:45 | XMS_ITS | Encounter Summary ---
Author Organization [facility] Address [address] [place] [address] [place] [address] Phone Care Team Providers Care Mold Car Pusher Name Role Phone Mamadou Loving DO Primary Care Provider [phone] Seymour Ferris DRIVER MESSENGER Unavailable Tony Miranda MD Unavailable Keyla Melton Unavailable [email or web address] Jamie Soto MD Unavailable [phone] Mamadou Loving DO Unavailable Roger Jorgensen DRIVER MESSENGER Unavailable Rinku Carrizales MD Unavailable [phone] Ezra eDnney NP Primary Care Provider + Encounter Details Date Type Department Care Team (Late st Contact Info) Description 02/22/2017 Ancillary Orders [facility] [address] [place] [address] Rinku Carrizales MD [address] [place] [address] [email or web address] Social History Tobacco Use Types Packs/Day Years [...] Contact Info) Description 08/24/2024 Procedure Pass [facility] [address] [place] [address] 04/18/2025 Procedure Pass [facility] [address] [place] [address], [address] [place] [address] 08/24/2025 11:15 AM EDT Appointment [facility] [address] [place] [address] Tony [place] DO [address] [place] [address] 10/18/2025 9:15 AM EDT Appointment [facility] [address] [place] [address] Tony [place] DO [address] [place] [address] 10/31/2025 9:45 AM EDT Office Visit [facility] [address] [place] [address], [address] [place] [address] Tony [place] DO [address] [address] documented as of this encounter Visit Diagnoses Not on filedocumented in this encounter Care Teams Mold Car Pusher Relationship Specialty Start Date End Date Mamadou Loving DO [address] [place] [address] PCP - General 02/20/17 07/06/19 Ezra Denney NP [address] [place] [address] PCP - General Family Medicine 07/07/19 Seymour Ferris NP 101 [facility] [address] [place] [address] [email or web address] Historical LMR Provider 02/20/1705/12/21 Tony Miradna MD 101 [facility] [address] [place] [address] [email or web address] Historical LMR Provider 02/20/17 Keyla Melton PA Historical LMR Provider 02/20/17 05/12/21 Jamie Soto MD [address] [place] [address] [email or web address] Historical LMR Provider 02/20/17 Mamadou Loving DO [address] [place] [address] Historical LMR Provider 02/20/17 Roger Jorgensen NP [address] [place] [address] [address] Historical LMR Provider 02/20/17 2 Rinku Carrizales MD [address] [place] [address] [email or web address] Historical LMR Provider 02/20/17 documented as of this encounter Additional Source Comments The information contained in this document represents components of the legal health record. It is not the complete legal health record.[facility]
--- OUTSIDE RECORDS SUMMARY | 2025-05-04 09:45 | XMS_ITS | Encounter Summary ---
Author Organization [facility] Address [address] [place] [address] Phone Care Team Providers Care Laborer/Grade Check Name Role Phone Tony Miranda MD Unavailable [phone] Jamie Soto MD Unavailable [phone] Rinku aCrrizales MD Unavailable [phone] Ezra Denney LABORATORY SCIENTIST Primary Care Provider + Encounter Details Date Type Department Care Team (Late st Contact Info) Description 09/25/2023 Procedure Pass [facility] [address] [place] [address] Social History Tobacco Use Types Packs/Day Years [...] Contact Info) Description 08/24/2024 Procedure Pass [facility] [address] [place] [address] 04/18/2025 Procedure Pass [facility] [address] [place] [address], [address] [place] [address] 08/24/2025 11:15 AM EDT Appointment [facility] [address] [place] [address] Tony [place], DO [address] [place] [address] 10/18/2025 9:15 AM EDT Appointment [facility] [address] [place] [address] Tony [place] DO [address] [address] 10/31/2025 9:45 AM EDT Office Visit [facility] [address], [address] [place] [address] Tony [place] DO [address] [address] documented as of this encounter Visit Diagnoses Not on filedocumented in this encounter Care Teams Laborer/Grade Check Relationship Specialty Start Date End Date Ezra Denney NP [address] [place] [address] PCP - General Family Medicine 07/07/19 Tony Miranda MD [email or web address] Historical LMR Provider 02/20/17 Jamie Soto MD [address] [place] [address] [email or web address] Historical LMR Provider 02/20/17 Rinku Carrizales MD [address] [place] [address] [email or web address] Historical LMR Provider 02/20/17 documented as of this encounter Additional Source Comments The information contained in this document represents components of the legal health record. It is not the complete legal health record.[facility]
--- OUTSIDE RECORDS SUMMARY | 2025-05-04 09:45 | XMS_ITS | Encounter Summary ---
Author Organization [facility] Address [address] [place] [address] Care Team Providers Care Boss Miner Name Role Phone Ezra Denney NACHO Primary Care Provider Encounter Details Date Type Department Care Team (Late Contact Info) Description 05/31/2024 Lab Requisition [facility] - Main Lab 299 [facility] [place] [address] Eugene Wilson MD [address] [place] [address] Encounter for other general examination Social History [...] 07/18/2025 11:00 AM EDT Office Visit Endocrinology [address] [address] Colin Martinez MD [address] [place] [address] documented as of this encounter Procedures Procedure [...] Hold for add-ons. 05/31/2024 10:01 AM EST [facility] Comment:Auto resulted. Blood Venous blood specimen / Unknown 05/31/2024 6:21 AM EST 05/31/2024 8:39 AM EST us Eugene Wilson MD LAB BLOOD ORDERABLES Final Res ult [facility] [address] [place] [address], * CBC auto differential (05/31/2024 6:21 AM EST) WBC 6.6 4.8 - 10.8 K/mcL LAB HEMETOLOGY METHOD 05/31/2024 11:19 AM EST [facility] RBC 4.60 4.50 - 5.50 M/mcL LAB HEMETOLOGY METHOD 05/31/2024 11:19 AM [facility] Hemoglobin 13.7 13.5 - 17.5 g/dL LAB HEMETOLOGY METHOD 05/31/2024 11:19 AM [facility] Hematocrit 42.2 42.0 - 54.0 % LAB HEMETOLOGY METHOD 05/31/2024 11:19 AM [facility] MCV 92.1 79.0 - 98.0 FL LAB HEMETOLOGY METHOD 05/31/2024 11:19 AM [facility] MCH 29.9 27.0 - 32.0 pcg LAB HEMETOLOGY METHOD 05/31/2024 11:19 AM [facility] MCHC 32.5 32.0 - 37.0 g/dL LAB HEMETOLOGY METHOD 05/31/2024 11:19 AM [facility] RDW 14.5 11.0 - 15.0 % LAB HEMETOLOGY METHOD 05/31/2024 11:19 AM [facility] Platelets 190 130 - 400 K/mcL LAB HEMETOLOGY METHOD 05/31/2024 11:19 AM [facility] MPV 11.0 7.0 - 11.0 FL LAB HEMETOLOGY METHOD 05/31/2024 11:19 AM [facility] NRBC 0.0 <1.0 % LAB HEMETOLOGY METHOD 05/31/2024 11:19 AM [facility] NRBC Absolute 0.00 <0.10 K/mcL LAB HEMETOLOGY METHOD 05/31/2024 11:19 AM [facility] Neutrophils Relative 57.9 % LAB HEMETOLOGY METHOD 05/31/2024 11:19 AM [facility] Lymphocytes Relative 28.5 % LAB HEMETOLOGY METHOD 05/31/2024 11:19 AM [facility] Monocytes Relative 10.3 % LAB HEMETOLOGY METHOD 05/31/2024 11:19 AM [facility] Eosinophils Relative 2.4 % LAB HEMETOLOGY METHOD 05/31/2024 11:19 AM [facility] Basophils Relative 0.6 % LAB HEMETOLOGY METHOD 05/31/2024 11:19 AM [facility] Immature Granulocytes Relative 0.3 % LAB HEMETOLOGY METHOD 05/31/2024 11:19 AM EST [facility] Neutrophils Absolute 3.83 1.50 - 7.00 K/mcL LAB HEMETOLOGY METHOD 05/31/2024 11:19 AM EST [facility] Lymphocytes Absolute 1.89 1.00 - 5.00 K/mcL LAB HEMETOLOGY METHOD 05/31/2024 11:19 AM EST [facility] Monocytes Absolute 0.68 0.20 - 1.00 K/mcL LAB HEMETOLOGY METHOD 05/31/2024 11:19 AM EST [facility] Eosinophils Absolute 0.16 0.00 - 0.50 K/mcL LAB HEMETOLOGY METHOD 05/31/2024 11:19 AM EST [facility] Basophils Absolute 0.04 0.00 - 0.20 K/mcL LAB HEMETOLOGY METHOD 05/31/2024 11:19 AM [facility] Immature Granulocytes Absolute 0.02 0.00 - 0.03 K/mcL LAB HEMETOLOGY METHOD 05/31/2024 11:19 AM EST [facility] Blood Venous blood specimen / Unknown Venipuncture / Unknown 05/31/2024 6:21 AM EST 05/31/2024 7:59 AM EST us Eugene Wilson MD LAB BLOOD ORDERABLES Final Res ult [facility] [address] [place] [address], * Magnesium (05/31/2024 6:21 AM EST) Magnesium 2.2 1.9 - 2.6 mg/dL LAB CHEMISTRY METHOD 05/31/2024 9:29 AM EST [facility] Blood Venous blood specimen / Unknown Venipuncture / Unknown 05/31/2024 6:21 AM EST 05/31/2024 7:59 AM EST us Eugene Wilson MD LAB BLOOD ORDERABLES Final Res ult Performing Organization Address [facility]/ZIP Co de Phone Number [facility] [address] [place] [address], [place] [phone] * (ABNORMAL) Valproic acid level, total (05/31/2024 6:21 AM EST) [facility] Valproic Acid, Total 34(L) 50 - 100 mcg/mL LAB CHEMISTRY METHOD 05/31/2024 9:29 AM EST [facility] Blood Venous blood specimen / Unknown Venipuncture / Unknown 05/31/2024 6:21 AM EST 05/31/2024 7:59 AM EST us Eugene Wilson MD LAB BLOOD ORDERABLES Final Res ult Performing Organization Address [facility] Co de Phone Number [facility] [address] [place] [address], [place] [phone] * (ABNORMAL) Comprehensive metabolic panel (05/31/2024 6:21 AM EST) [facility] Sodium 144 133 - 145 mmol/L LAB CHEMISTRY METHOD 05/31/2024 9:29 AM [facility] Potassium 3.6 3.5 - 5.5 mmol/L LAB CHEMISTRY METHOD 05/31/2024 9:29 AM [facility] Chloride 117(H) 96 - 110 mmol/L LAB CHEMISTRY METHOD 05/31/2024 9:29 AM [facility] CO2 22 21 - 32 mmol/L LAB CHEMISTRY METHOD 05/31/2024 9:29 AM [facility] Anion Gap 5 3 - 11 LAB CHEMISTRY METHOD 05/31/2024 9:29 AM [facility] Glucose 76 70 - 100 mg/dL LAB CHEMISTRY METHOD 05/31/2024 9:29 AM [facility] BUN 12 5 - 25 mg/dL LAB CHEMISTRY METHOD 05/31/2024 9:29 AM [facility] Creatinine 0.86 0.70 - 1.30 mg/dL LAB CHEMISTRY METHOD 05/31/2024 9:29 AM [facility] eGFR 90 >=60 mL/min/1. 73m2 LAB CHEMISTRY METHOD 05/31/2024 9:29 AM [facility] Comment:Calculation based on the Chronic Kidney Disease Epidemiology Collaboration (CKD-EPI) equation refit without adjustment for race. BUN/Creatinine Ratio 14.0 LAB CHEMISTRY METHOD 05/31/2024 9:29 AM [facility] Calcium 9.2 8.5 - 10.5 mg/dL LAB CHEMISTRY METHOD 05/31/2024 9:29 AM [facility] AST (SGOT) 10 10 - 42 unit/L LAB CHEMISTRY METHOD 05/31/2024 9:29 AM [facility] ALT (SGPT) 15 10 - 60 unit/L LAB CHEMISTRY METHOD 05/31/2024 9:29 AM [facility] Alkaline Phosphatase 75 42 - 121 unit/L LAB CHEMISTRY METHOD 05/31/2024 9:29 AM [facility] Total Protein 5.6(L) 6.0 - 8.0 g/dL LAB CHEMISTRY METHOD 05/31/2024 9:29 AM [facility] Albumin 3.1(L) 3.2 - 5.0 g/dL LAB CHEMISTRY METHOD 05/31/2024 9:29 AM [facility] Total Bilirubin 0.6 0.0 - 1.4 mg/dL LAB CHEMISTRY METHOD 05/31/2024 9:29 AM [facility] Blood Venous blood specimen / Unknown Venipuncture / Unknown 05/31/2024 6:21 AM EST 05/31/2024 7:59 AM EST us Eugene Wilson MD LAB BLOOD ORDERABLES Final Res ult [facility] [address] [place] [address], documented in this encounter Visit Diagnoses Diagnosis Encounter for other general examination documented in this encounter Care Teams Boss Miner Relationship Specialty Start Date End Date Ezra Denney NP [address] [place], [place] PCP - General 06/24/23 documented as of this encounter
--- OUTSIDE RECORDS SUMMARY | 2025-05-04 09:45 | XMS_ITS | Encounter Summary ---
Author Organization [facility] Address [address] [place] [address] Phone Care Team Providers Care Food And Beverage Controller Name Role Phone Tony Miranda MD Unavailable Jamie Soto MD Unavailable [phone] Rinku Carrizales MD Unavailable [phone] Ezra Denney NP Primary Care Provider + Encounter Details Date Type Department Care Team (Late st Contact Info) Description 04/16/2024 Transcribe Orders [facility] Specimen Processing [address] [place] [address] Ezra Denney, NACHO [facility] [place] [address] Social History Tobacco Use Types Packs/Day Years [...] Procedure Pass [facility] [address] [place] [address] 04/18/2025 Procedure Pass [facility] [address] [place] [address], [address] [place] [address] 08/24/2025 11:15 AM EDT Appointment [facility] [address] [place] [address] Tony [place], DO [address] [place] [address] [place] [address] 10/18/2025 9:15 AM EDT Appointment [facility] [address] [place] [address] Tony [place], DO 22 [facility] [address] [place] [address] 10/31/2025 9:45 AM EDT Office Visit [facility] [address] [facility], [address] [place] [address] Tony [place] DO 22 [facility] [address] [place] [address] documented as of this encounter Visit Diagnoses Not on filedocumented in this encounter Care Teams Food And Beverage Controller Relationship Specialty Start Date End Date Ezra Denney NP [address] [place] [address] PCP - General Family Medicine 07/07/19 Tony Miranda MD [email or web address] Historical LMR Provider 02/20/17 Jamie Soto MD [address] [place] [address] [address] [place] [address] [email or web address] Historical LMR Provider 02/20/17 Rinku Carrizales MD [address] [place] [address] [email or web address] Historical LMR Provider 02/20/17 documented as of this encounter Additional Source Comments The information contained in this document represents components of the legal health record. It is not the complete legal health record.[facility]
--- OUTSIDE RECORDS SUMMARY | 2025-05-04 09:46 | XMS_ITS | Encounter Summary ---
Author Organization [facility] Address [address] [place] [address] [address] [place] [address] Phone Care Team Providers Care Painter And Body Mechanic Apprentice Name Role Phone Mamadou Loving DO Primary Care Provider [phone] Seymour Ferris ROUTE SERVICE REPRESENTATIVE Unavailable Tony Miranda MD Unavailable Keyla Melton Unavailable [email or web address] Jamie Soto MD Unavailable [phone] Mamadou Loving DO Unavailable [phone] Roger Jorgensen ROUTE SERVICE REPRESENTATIVE Unavailable Rinku Carrizales MD Unavailable [phone] Ezra Denney NP Primary Care Provider + Encounter Details Date Type Department Care Team (Late st Contact Info) Description 09/02/2018 Procedure Pass [facility] R D Manager [address] [facility], Floor 9, [address] [place] [address] Social History Tobacco Use Types [...] Procedure Pass [facility] [address] [place] [address] 04/18/2025 Procedure Pass [facility] [address] [place] [address], [address] [place] [address] 08/24/2025 11:15 AM EDT Appointment [facility] [address] [place] [address] Tony Sargent [address] [address] 10/18/2025 9:15 AM EDT Appointment [facility] [address] [place] [address] Tony Sargent DO [address] [place] [address] 10/31/2025 9:45 AM EDT Office Visit [facility] [address] [place] [address], [address] [place] [address] Tony Sargent DO [address] [place] [address] documented as of this encounter Visit Diagnoses Not on filedocumented in this encounter Care Teams Painter And Body Mechanic Apprentice Relationship Specialty Start Date End Date Mamadou Loving DO [address] [place] [address] PCP - General 02/20/17 07/06/19 Ezra Denney NP [facility] [place] [address] PCP - General Family Medicine 07/07/19 Seymour Ferris NP 101 [facility] 100 [place] [address] [email or web address] Historical LMR Provider 02/20/1705/12/21 Tony Miranda MD 101 [facility] 100 [place] [address] [email or web address] Historical LMR Provider 02/20/17 Keyla Melton PA Historical LMR Provider 02/20/17 05/12/21 Jamie Soto MD [address] [place] [address] [email or web address] Historical LMR Provider 02/20/17 Mamadou Loving DO [address] [place] [address] Historical LMR Provider 02/20/17 Roger Jorgensen NP [address] [place] [address] [address] Historical LMR Provider 02/20/17 2 Rinku Carrizales MD [address] [place] [address] [email or web address] Historical LMR Provider 02/20/17 documented as of this encounter Additional Source Comments The information contained in this document represents components of the legal health record. It is not the complete legal health record.[facility]
--- OUTSIDE RECORDS SUMMARY | 2025-05-04 09:46 | XMS_ITS | Encounter Summary ---
Author Organization [facility] Address [address] [place] [address] Phone Care Team Providers Care Sql Database Administrator Name Role Phone Seymour Ferris Renay SENIOR PRODUCT ENGINEER Unavailable [phone] Tony Miranda MD Unavailable Keyla Melton Unavailable [email or web address] Jamie Soto MD Unavailable [phone] Mamadou Loving DO Unavailable Roger Jorgensen SENIOR PRODUCT ENGINEER Unavailable Rinku Carrizales MD Unavailable [phone] Ezra Denney NP Primary Care Provider + Encounter Details Date Type Department Care Team (Late st Contact Info) Description 07/24/2020 Procedure Pass [facility] [address] [place], [place] [id number] Social History Tobacco Use Types Packs/Day Years [...] Contact Info) Description 08/24/2024 Procedure Pass [facility] [address] [place] [address] 04/18/2025 Procedure Pass [facility] [address], [address] [place] [address] 08/24/2025 11:15 AM EDT Appointment [facility] [address] [place] [address] Tony Sargent, DO [address] [place] [address] [place] [address] 10/18/2025 9:15 AM EDT Appointment [facility] [address] [place] [address] Tony Sargent, DO [address] [place] [address] [place] [address] 10/31/2025 9:45 AM EDT Office Visit [facility] [address], [address] [place] [address] Tony Sargent, DO [address] [address] documented as of this encounter Visit Diagnoses Not on filedocumented in this encounter Care Teams Sql Database Administrator Relationship Specialty Start Date End Date Ezra Denney NP [address] [facility] [place] [address] PCP - General Family Medicine 07/07/19 Seymour Ferris NP [address] [place] [address] [email or web address] Historical LMR Provider 02/20/1705/12/21 Tony Miranda MD 101 [facility] 100 [place] [address] [email or web address] Historical LMR Provider 02/20/17 Keyla Melton PA [email or web address] Historical LMR Provider 02/20/17 05/12/21 Jamie Soto MD [address] [address] [email or web address] Historical LMR Provider 02/20/17 Mamadou Loving DO [address] [place] [address] Historical LMR Provider 02/20/17 Roger Jorgensen NP [address] [place] [address] [address] [place] [address] Historical LMR Provider 02/20/17 2 Rinku Carrizales MD [address] [place] [address] [email or web address] Historical LMR Provider 02/20/17 documented as of this encounter Additional Source Comments The information contained in this document represents components of the legal health record. It is not the complete legal health record.[facility]
--- OUTSIDE RECORDS SUMMARY | 2025-05-04 09:46 | XMS_ITS | Encounter Summary ---
Author Organization [facility] Address [address] [place] [address] Phone Care Team Providers Care Biomaterials Engineer Name Role Phone Mamadou Loving DO Primary Care Provider [phone] Seymour Ferris SAMPLING THEORY TEACHER Unavailable Tony Miranda MD Unavailable Keyla Melton Unavailable [email or web address] Jamie Soto MD Unavailable Mamadou Loving DO Unavailable [phone] Roger Jorgensen SAMPLING THEORY TEACHER Unavailable Rinku Carrizales MD Unavailable [phone] Ezra Denney NP Primary Care Provider + Encounter Details Date Type Department Care Team (Late st Contact Info) Description 09/02/2018 Procedure Pass [facility] [address] [place] [address] Social History Tobacco Use Types [...] Procedure Pass [facility] [address] [place] [address] 04/18/2025 Procedure Pass [facility] [address], [address] [place] [address] 08/24/2025 11:15 AM EDT Appointment [facility] [address] [place] [address] Tony Sargent, DO [address] [place] [address] [email or web address] 10/18/2025 9:15 AM EDT Appointment [facility] [address] [place] [address] Tony Sargent DO [address] [place] [address] [place] [address] 10/31/2025 9:45 AM EDT Office Visit [facility] [address], [address] [place] [address] Tony Sargent DO [address] [address] documented as of this encounter Visit Diagnoses Not on filedocumented in this encounter Care Teams Biomaterials Engineer Relationship Specialty Start Date End Date Mamadou Loving DO 575 [place] [address] PCP - General 02/20/17 07/06/19 Ezra Denney, NACHO [address] [facility] [place] [address] PCP - General Family Medicine 07/07/19 Seymour Ferris, NACHO 101 [facility] 100 [place] [address] [email or web address] Historical LMR Provider 02/20/1705/12/21 Tony Miranda MD 101 [facility] 100 [place] [address] [email or web address] Historical LMR Provider 02/20/17 Keyla Melton PA [email or web address] Historical LMR Provider 02/20/17 05/12/21 Jamie Soto MD [address] [place] [address] [email or web address] Historical LMR Provider 02/20/17 Mamadou Loving DO [address] [place] [address] Historical LMR Provider 02/20/17 Roger Jorgensen NP [address] [place] [address] [address] Historical LMR Provider 02/20/17 2 Rinku Carrizales MD [address] [address] [email or web address] Historical LMR Provider 02/20/17 documented as of this encounter Additional Source Comments The information contained in this document represents components of the legal health record. It is not the complete legal health record.[facility]
--- OUTSIDE RECORDS SUMMARY | 2025-05-04 09:46 | XMS_ITS | Encounter Summary ---
Author Organization [facility] Address [address] [place] [address] Phone Care Team Providers Care Curriculum Manager Name Role Phone Mamadou Loving DO Primary Care Provider [phone] Seymour Ferris ASSOCIATE PROFESSOR OF PHILOSOPHY Unavailable Tony Miranda MD Unavailable Keyla Melton Unavailable [email or web address] Jamie Soto MD Unavailable [phone] Mamadou Loving DO Unavailable Roger Jorgensen ASSOCIATE PROFESSOR OF PHILOSOPHY Unavailable Rinku Carrizales MD Unavailable [phone] Ezra Denney NP Primary Care Provider + Encounter Details Date Type Department Care Team (Latest Contact Info) Description 07/09/2018 Ancillary Orders [facility] [address] [place] [address] [place] [address] [email or web address] Ischemic cardiomyopathy Social History Tobacco Use Types [...] st Contact Info) Description 08/24/2024 [facility] [address] [place] [address] 04/18/2025 Procedure Pass [facility] [address], [address] [place] [address] 08/24/2025 11:15 AM EDT Appointment [facility] [address] [place] [address] Tony Sargent DO [address] [place] [address] 10/18/2025 9:15 AM EDT Appointment [facility] [address] [place] [address] Tony Sargent DO [address] [place] [address] 10/31/2025 9:45 AM EDT Office Visit [facility] [address] [place] [address] [place] [address], [address] [place] [address] Tony Sargent DO [address] [place] [address] documented as of this encounter Visit Diagnoses Diagnosis Ischemic cardiomyopathy Other specified forms of chronic ischemic heart disease documented in this encounter Care Teams Curriculum Manager Relationship Specialty Start Date End Date Mamadou Loving DO 575 [place] [address] PCP - General 02/20/17 07/06/19 Ezra Denney NP [facility] [place] [address] PCP - General Family Medicine 07/07/19 Seymour Ferris NP [address] [place] 100 [place] [address] [email or web address] Historical LMR Provider 02/20/1705/12/21 Tony Miranda MD [address] [facility] [address] [place] [address] [email or web address] Historical LMR Provider 02/20/17 Keyla Melton PA [email or web address] Historical LMR Provider 02/20/17 05/12/21 Jamie Soto MD [address] [place] [address] [email or web address] Historical LMR Provider 02/20/17 Mamadou Loving DO [address] [place] [address] Historical LMR Provider 02/20/17 Roger Jorgensen NP [address] [place] [address] [address] Historical LMR Provider 02/20/17 Rinku Bermudez MD [address] [place] [address] [email or web address] Historical LMR Provider 02/20/17 documented as of this encounter Additional Source Comments The information contained in this document represents components of the legal health record. It is not the complete legal health record.[facility]
--- OUTSIDE RECORDS SUMMARY | 2025-05-04 09:46 | XMS_ITS | Encounter Summary ---
Author Organization [facility] Address [address] [place] [address] Care Team Providers Care Custodial Aide Name Role Phone Mamadou Loving Primary Care Provider [phone] Zackary Martinez MD Unavailable Encounter Details Date Type Department Care Team (Late st Contact Info) Description 03/31/2017 Scanned Document [facility] & [place] [address] Marco Lopez MD [address] [address] Social History Tobacco Use Types Packs/Day Years [...] on filedocumented in this encounter Care Teams Custodial Aide Relationship Specialty Start Date End Date Mamadou Loving [address] [place] [address] [place] [address] PCP - General Medicine Hospitalist 03/26/17 Zackary Martinez MD [address] [place] [address] [place] [address] Cardiovascular Disease 04/03/17 documented as of this encounter
--- OUTSIDE RECORDS SUMMARY | 2025-05-04 09:46 | XMS_ITS | Encounter Summary ---
Author Organization [facility] Address [facility] [address] [place] [address] Phone Care Team Providers Care Special Tax Auditor Name Role Phone Seymour Ferrsi Renay TOMOGRAPHY TECHNOLOGIST Unavailable Tony Miranda MD Unavailable Keyla Melton Unavailable [email or web address] Jamie Soto MD Unavailable Mamadou Loving DO Unavailable [place] Jorgensen TOMOGRAPHY TECHNOLOGIST Unavailable [phone] Rinku Carrizales MD Unavailable [phone] Ezra Denney TOMOGRAPHY TECHNOLOGIST Primary Care Provider + Encounter Details Date Type Department Care Team (Late st Contact Info) Description 03/14/2021 Transcribe Orders [facility] [address], [address] [place] [address] Marivel Denny MD [address] [address] [email or web address] Social History Tobacco Use Types [...] Contact Info) Description 08/24/2024 Procedure Pass [facility] [address] [place] [address] 04/18/2025 Procedure Pass [facility] [address] [place] [address] [place] [address], [address] [place] [address] 08/24/2025 11:15 AM EDT Appointment [facility] [address] [place] [address] Tony Sargent DO [address] [place] [address] [place] [address] 10/18/2025 9:15 AM EDT Appointment [facility] [address] [place] [address] Tony Sargent, DO 22 [facility] [address] [place] [address] 10/31/2025 9:45 AM EDT Office Visit [facility] [address] [place] [address] [place] [address], [address] [place] [address] Tony Sargent DO 22 [facility] [address] [place] [address] documented as of this encounter Visit Diagnoses Not on filedocumented in this encounter Care Teams Special Tax Auditor Relationship Specialty Start Date End Date Ezra Denney NP [facility] [place] [address] PCP - General Family Medicine 07/07/19 Seymour Ferris NP 101 [facility] 100 [place] [address] [email or web address] Historical LMR Provider 02/20/1705/12/21 Tony Miranda MD 101 [facility] 100 [place] [address] [email or web address] Historical LMR Provider 02/20/17 Keyla Melton PA Historical LMR Provider 02/20/17 05/12/21 Jamie Soto MD [address] [place] [address] [email or web address] Historical LMR Provider 02/20/17 Mamadou Loving DO [address] [place] [address] Historical LMR Provider 02/20/17 Roger Jorgensen NP [address] [place] [address] [address] Historical LMR Provider 02/20/17 2 Rinku Carrizales MD [address] [place] [address] [email or web address] Historical LMR Provider 02/20/17 documented as of this encounter Additional Source Comments The information contained in this document represents components of the legal health record. It is not the complete legal health record.[facility]
--- OUTSIDE RECORDS SUMMARY | 2025-05-04 09:46 | XMS_ITS | Encounter Summary ---
Author Organization [facility] Address [address] [place] [address] Phone Care Team Providers Care Shipboard Intelligence Analyst Name Role Phone Seymour Ferris Renay HOOP CUTTER Unavailable Tony Mirnada MD Unavailable Keyla Melton Unavailable [email or web address] Jamie Soto MD Unavailable Mamadou Loving DO Unavailable [place] Jorgensen HOOP CUTTER Unavailable Rinku Carrizales MD Unavailable [phone] Ezra Denney NP Primary Care Provider + Encounter Details Date Type Department Care Team (Late st Contact Info) Description 03/14/2020 Procedure Pass [facility] [address] [place] [address] Social History Tobacco Use Types [...] Procedure Pass [facility] [address] [place] [address] 04/18/2025 Procedure Pass [facility] 22 [facility] 3rd [facility], [address] [place] [address] 08/24/2025 11:15 AM EDT Appointment [facility] [address] [place] [address] Tony Sargent, DO [facility] [address] [place] [address] [email or web address] 10/18/2025 9:15 AM EDT Appointment [facility] [address] [place] [address] Tony Sargent, DO [address] [place] [address] [place] [address] 10/31/2025 9:45 AM EDT Office Visit [facility] [address], [address] [place] [address] Tony Sargent, DO [address] [address] documented as of this encounter Visit Diagnoses Not on filedocumented in this encounter Care Teams Shipboard Intelligence Analyst Relationship Specialty Start Date End Date Ezra Denney NP [address] [facility] [place] [address] PCP - General Family Medicine 07/07/19 Seymour Ferris NP 101 [facility] 100 [place] [address] [email or web address] Historical LMR Provider 02/20/1705/12/21 Tony Miranda MD [address] [place] [address] 100 [place] [address] [email or web address] Historical LMR Provider 02/20/17 Keyla Melton PA [email or web address] Historical LMR Provider 02/20/17 05/12/21 Jamie Soto MD 22 [facility] 301 [place] [address] [email or web address] Historical LMR Provider 02/20/17 Mamadou Loving DO [address] [place] [address] Historical LMR Provider 02/20/17 Roger Jorgensen NP [address] [place] [address] [address] [place] [address] Historical LMR Provider 02/20/17 2 Rinku Carrizales MD [address] [place] [address] [email or web address] Historical LMR Provider 02/20/17 documented as of this encounter Additional Source Comments The information contained in this document represents components of the legal health record. It is not the complete legal health record.[facility]
--- OUTSIDE RECORDS SUMMARY | 2025-05-04 09:46 | XMS_ITS | Encounter Summary ---
Author Organization [facility] Address [address] [place] [address] Phone Care Team Providers Care Tax Collection Coordinator Name Role Phone Mamadou Loving DO Primary Care Provider [phone] Seymour Ferris REGISTRATION REPRESENTATIVE Unavailable Tony Miranda MD Unavailable Keyla Melton Unavailable [email or web address] Jamie Soto MD Unavailable Mamadou Loving DO Unavailable [place] Jorgensen REGISTRATION REPRESENTATIVE Unavailable Rinku Carrizales MD Unavailable [phone] Ezra Denney NP Primary Care Provider + Encounter Details Date Type Department Care Team (Late st Contact Info) Description 07/09/2018 Ancillary Orders [facility] [address] [place] [address] Tony Miranda MD [address] [place] [address] [place] [address] [email or web address] Social History Tobacco Use Types Packs/Day Years [...] st Contact Info) Description 08/24/2024 Procedure Pass [facility] [address] [place] [address] 04/18/2025 Procedure Pass [facility] [address], [address] [place] [address] 08/24/2025 11:15 AM EDT Appointment [facility] [address] [place] [address] Tony Sargent [address] [address] [email or web address] 10/18/2025 9:15 AM EDT Appointment [facility] [address] [place] [address] Tony Sargent [address] [address] 10/31/2025 9:45 AM EDT Office Visit [facility] [address] [place] [address], [address] [place] [address] Tony Sargent DO [address] [place] [address] documented as of this encounter Visit Diagnoses Not on filedocumented in this encounter Care Teams Tax Collection Coordinator Relationship Specialty Start Date End Date Mamadou Loving DO 575 [place] [address] PCP - General 02/20/17 07/06/19 Ezra Denney NP 1961 [facility] [place] [address] PCP - General Family Medicine 07/07/19 Seymour Ferris, NACHO 101 [facility] 100 [place] [address] [email or web address] Historical LMR Provider 02/20/1705/12/21 Tony Miranda MD 101 [facility] 100 [place] [address] [email or web address] Historical LMR Provider 02/20/17 Keyla Melton PA [email or web address] Historical LMR Provider 02/20/17 05/12/21 Jamie Soto MD [address] [place] [address] [email or web address] Historical LMR Provider 02/20/17 Mamadou Loving DO [address] [place] [address] Historical LMR Provider 02/20/17 Roger Jorgensen NP [address] [place] [address] [address] Historical LMR Provider 02/20/17 Rinku Bermudez MD [address] [place] [address] [email or web address] Historical LMR Provider 02/20/17 documented as of this encounter Additional Source Comments The information contained in this document represents components of the legal health record. It is not the complete legal health record.[facility]
--- OUTSIDE RECORDS SUMMARY | 2025-05-04 09:46 | XMS_ITS | Encounter Summary ---
Author Organization [facility] Address [address] [place] [address] Care Team Providers Care Director Medicare Sales Name Role Phone Mamadou Loving Primary Care Provider [phone] Zackary Martinez MD Unavailable Encounter Details Date Type Department Care Team (Late st Contact Info) Description 04/07/[address] [facility] Vascular & [place] [address] Marco Lopez MD [address] [address] Social History Tobacco Use Types Packs/Day Years [...] filedocumented in this encounter Care Teams Director Medicare Sales Relationship Specialty Start Date End Date Mamadou Loving [address] [place] [address] [place] [address] PCP - General Medicine Hospitalist 03/26/17 Zackary Martinez MD [address] [place] [address] [place] [address] Cardiovascular Disease 04/03/17 documented as of this encounter
--- OUTSIDE RECORDS SUMMARY | 2025-05-04 09:46 | XMS_ITS | Encounter Summary ---
Author Organization [facility] Address [address] [place] [address] Care Team Providers Care Supervisor Microbiology Technologists Name Role Phone Mamadou Loving Primary Care Provider [phone] Zackary Martinez MD Unavailable Encounter Details Date Type Department Care Team (Late st Contact Info) Description 03/26/2017 Abstract [facility] [place] [address] [place] [address] Trisha Vazquez, RN [address] [place] [address] Social History Tobacco Use Types Packs/Day Years [...] filedocumented in this encounter Care Teams Supervisor Microbiology Technologists Relationship Specialty Start Date End Date Mamadou Loving [address] [place] [address] [place] [address] PCP - General Medicine Hospitalist 03/26/17 Zackary Martinez MD [address] [place] [address] [place] [address] Cardiovascular Disease 04/03/17 documented as of this encounter
--- OUTSIDE RECORDS SUMMARY | 2025-05-04 09:46 | XMS_ITS | Clinical Summary ---
Author Organization [facility] Address [address] [place] [address] [place] [phone] Phone Care Team Providers Care Physiotherapy Assistant Name Role Phone Tony Miranda MD Unavailable Jamie Soto MD Unavailable Rinku Carrizales MD Unavailable [phone] Ezra Denney BLASTER HELPER Primary Care Provider + Allergies Active Allergy [...] 500 mg by mouth daily. Active vitamins A,C,M-xvfb-tjevz r (PRESERVISION AREDS) 14,[id number] nqwe-oo-cqrj Cap Take 1 capsule by mouth 2 (two) times a day with meals. Active JARDIANCE 10 mg tablet Take 10 mg by mouth every morning. 11/29/19 23 Active acetaminophen (TYLENOL) 325 mg tablet Take 2 tablets by mouth. 01/21/20 23 Active cyanocobalamin (VITAMIN B-12) 1,000 mcg/mL injection 12/17/19 23 Active levothyroxine (SYNTHROID,LEVOT HROID) 25 MCG tablet [...] min. 15 tablet 2 01/16/20 24 Active thiamine (VITAMIN B-1) 100 MG tablet Take 100 mg by mouth daily. Active clopidogrel (PLAVIX) 75 mg tabletIndication s:Medication refill TAKE 1 TABLET(75 MG) BY MOUTH EVERY NIGHT AT BEDTIME 90 tablet 3 04/27/20 24 Active metoprolol succinate (TOPROL-XL) 25 MG 24 hr tabletIndication s:Medication refill Take 0.5 tablets (12.5 mg total) by mouth daily. 45 tablet 3 08/26/19 25 Active Additional Information Patient taking differently: 25 mgOral Daily, Reported on 04/18/2025 calcium carbonate-vitami n D3 1,500 mg (600 mg elemental)-800 units Tab Take 1 tablet by mouth 2 (two) times a day with meals. 60 tablet 5 09/29/19 25 Active mirtazapine (REMERON) 7.5 MG tablet Take 7.5 mg by mouth nightly at bedtime. Active cholecalciferol (VITAMIN D3) 25 MCG (1,000 unit) tablet Take 2 tablets by mouth every morning. 11/11/19 25 Active LORazepam (ATIVAN) 1 MG tablet TAKE 1/2 TABLET BY MOUTH THREE TIMES DAILY 11/13/19 25 Active memantine (NAMENDA) 5 MG tablet [...] 01/06/20 25 Active modafiniL (PROVIGIL) 100 MG tabletIndication s:Autoimmune encephalitis Take 1 tablet (100 mg total) by mouth daily. 30 tablet 5 01/11/20 25 Active dofetilide (TIKOSYN) 250 MCG capsuleIndicatio ns:Medication refill TAKE 1 CAPSULE(250 MCG) BY MOUTH TWICE DAILY 180 capsule 3 02/22/20 25 Active ranolazine (RANEXA) 1,000 mg SR tablet Take 1 tablet (1,000 mg total) by mouth 2 (two) times a day. 180 tablet 5 03/30/20 25 Active divalproex (DEPAKOTE) [address] tablet Take 500 mg by mouth daily. Active famotidine (PEPCID) 20 MG tablet Take 1 tablet by mouth 2 (two) times a day. 03/23/20 25 Active isosorbide mononitrate (IMDUR) 30 MG 24 hr tablet Take 2 tablets (60 mg total) by mouth daily. 60 tablet 11 04/26/20 25 Active isosorbide mononitrate (IMDUR) 30 MG 24 hr tablet Take 60 mg by mouth daily. 10/07/19 25 025 Discontin ued(Reord er) Active Problems Problem Noted Date Diagnosed Date [...] battery life. RV pacing and sensing stable. TRAFFIC REPRESENTATIVE <1%. No episodes noted. No parameter changes. [...] It was reported during visit [facility] hospitalization If no decent revascularization options on cardiac catheterization, may need to discuss with the EP whether a LOOPING MACHINE OPERATOR upgrade would be indicated for the patient [...] 1:02 PM EST): hospitalized at [facility] 05/22 through 05/30/2024 Status post mechanical [...] 5:16 PM EST): hospitalized at [facility] 05/22 through 05/30/2024 Status post mechanical [...] PM EDT): Being followed by neurology at [facility]. He is on high doses of [...] patient has been seen by neurology at [place] and they have not been able to determine a cause for his symptoms. I wonder if his Paxil or trazodone are playing a role in his symptoms. I have suggested that the patient see another neurologist. I have sent a referral to Dr. Jacobs's office in [place]. Encounter for monitoring amiodarone therapy 12/03 Assessment & Plan (12/17/2021 11:52 AM EDT): We will check a hepatic panel and a TSH. History of difficult intubation 09/03/2018 Cardiac arrest 09/02/2018 CAD (coronary artery disease) 06/27/2018 Assessment & Plan (06/27/2018 1:34 AM EST): Discussed CREDIT REPRESENTATIVE PCI of LAD and LCx as above. - CTA a/p and coronary CT - Schedule CREDIT REPRESENTATIVE PCI afterwards - Start ranexa - Continue [...] Paroxysmal atrial fibrillation 01/28/2018 Assessment & Plan (04/18/2025 11:53 AM EST): Asymptomatic on oral anticoagulation for embolic protection on Eliquis 5 twice a day without bleeding complications Assessment & Plan (02/03/2025 2:23 PM EDT): Pt is currently managed on dofetilide and Eliquis for CVA prophylaxis. LOOPING MACHINE OPERATOR-D shows no episodes of AF. Will continue current management and follow-up in April as scheduled. Plan: Continue dofetilide Continue Eliquis Assessment & Plan (12/15/2024 9:57 AM EDT): Asymptomatic and on Eliquis Assessment & Plan (11/22/2024 11:18 AM EDT): Pt is currently managed on Eliquis and dofetilide. Pt is tolerating these medications well. I recommend considering an atrial lead when implanting a LOOPING MACHINE OPERATOR-D to monitor AF burden. Plan: Continue Eliquis [...] paroxysmal atrial fibrillation. Amiodarone stopped while at [facility] due to absence of atrial fibrillation. Remains anticoagulated on Eliquis, currently denying palpitations. Assessment & Plan (11/03/2018 2:16 PM EDT): Had a history of paroxysmal atrial fibrillation. Amiodarone stopped while at [facility] due to absence of atrial fibrillation. Remains anticoagulated on Eliquis. Currently denies palpitations. Assessment & Plan (09/18/2018 10:04 AM EDT): Rhythm control and anticoagulation strategy on amiodarone 400 mg daily, metoprolol, and rivaroxaban SHOE TRIMMER. CHADSsVASC 4. 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 [facility] cardiac cath on October 20, 2024-He recently a had cardiac cath procedure on 10/20/2024 which showed continued patency of HARTLEY-LAD and occluded ute vessels and bypass grafts. It did not find targets for PCI. ACC Diagnostic Recommendations: Medical therapy and/or counseling. Dr. Gómez consulted on patient's and it was reported if patient has no decent revascularization options on cardiac catheterization, may need to discuss with the EP whether a LOOPING MACHINE OPERATOR upgrade would be indicated for the patient in this context given baseline bradycardia and bifascicular block with wide QRS in light of underlying ischemic cardiomyopathy. I am going to have patient follow-up with EP in regards to this. Dr. Gómez also noted that patient may be someone who would be a candidate for enrollment in thecosira trial (coronary sinus probation and parole officer) given his ongoing chest pain with no [...] emergency room visit back February 2024 at [facility] with chest discomfort. He did rule [...] (11/24/2018 1:21 PM EDT): Was recently at [facility] for stenting of totally occluded vessels. CREDIT REPRESENTATIVE PCI was unsuccessful, mid LAD PCI successful. Procedure was comp gated by cardiac arrest, status post ICD shock x4, patient required intubation and Impella placement. Patient had prolonged stay of 6 weeks involving time in CCU. He completed rehab in [place] and did well. Currently denying chest pain [...] (11/03/2018 2:22 PM EDT): Was recently at [facility] for stenting of totally occluded vessels. CREDIT REPRESENTATIVE PCI was unsuccessful, mid LAD PCI successful. Procedure complicated by cardiac arrest, status post ICD shock x4, patient intubated and Impella placed. Patient had prolonged stay of 6 weeks involving time in the the CCU. He has completed rehab in [facility] and did well. In the office [...] 34%, CCS 3-4 angina/dyspnea, CTOs of all ute vessels and SVG- RCA and SVG-OM. Stress test 08/26/18: large severe mixed defect AL reinoso & severe fixed defect INF and basal to mid IL wall. LVEF 34%. Admitted for RCA CREDIT REPRESENTATIVE PCI and LAD PCI 09/02/18: Procedure c/b cardiac arrest, VF s/p ICD shock x 4, requiring intubation and Impella. CREDIT REPRESENTATIVE PCI was unsuccessful, mid LAD PCI successful [...] triple Rx (ASA, Plavix, apixaban) until [facility] then stop aspirin and continue PPI -- [...] Apparently there is an interventional list at [facility] who has contacted Angelo about proceeding with [...] have the films were reviewed at the [facility]. Ischemic cardiomyopathy 04/09/2017 Assessment & Plan (04/18/2025 11:53 AM EST): This patient had bypass surgery in the past but has a preserved left ventricular ejection fraction Assessment & Plan (02/03/2025 2:23 PM EDT): LOOPING MACHINE OPERATOR-D in situ. Pt is on Jardiance, metoprolol. [...] We discussed upgrading his device to a LOOPING MACHINE OPERATOR-D. We have discussed the r/b/a for implantation of a Chronic Resynchronization Therapy Defibrillator or LOOPING MACHINE OPERATOR-D. A LOOPING MACHINE OPERATOR device is used in patients with heart failure to potentially improve the overall pumping function and synchronization of the ventricles. This device is used in conjunction with GDMT as tolerated by the patient. Patients with heart failure may be at increased risk for fatal cardiac arrhythmias including ventricular tachycardia and ventricular fibrillation. A LOOPING MACHINE OPERATOR with defibrillator function will provide therapy for these life-threatening arrhythmias including an electrical discharge or defibrillation while also providing pacemaker function for potential improvement in ejection fraction and heart failure symptoms. The risks of implantation include bleeding, infection, perforation requiring emergency intervention, vascular injury, pericardial effusion, hemo/pneumothorax, stroke, cardiac arrest, or . The patient is made aware that LOOPING MACHINE OPERATOR implantation may not improve heart failure symptoms. The patient verbalized understanding of the information provided. The [place] Program for Patient Centered Decisions was utilized during this encounter. Plan: Continue metoprolol Continue Ranexa Continue rosuvastatin Continue clopidogrel Continue Imdur Continue Jardiance Continue Zetia Discontinue Entresto Schedule LOOPING MACHINE OPERATOR-D Assessment & Plan (11/16/2024 12:12 PM EDT): Most recent echo done at [facility] during hospitalization shows a EF of [...] years ago he was at [facility] with chest pain but was discharged [...] of 38%, NENA was stopped while at [facility]. We will start him on low-dose Entresto, [...] therapy. Essential hypertension 04/09/2017 Assessment & Plan (04/18/2025 11:53 AM EST): Perfectly controlled to the guidelines Assessment & Plan (12/15/2024 9:57 AM EDT): [...] EDT): Controlled on metoprolol ER, lisinopril, furosemide SHOE TRIMMER. Probable sleep apnea and an outpt sleep study has been ordered in [place]. - his blood pressure remain well controlled [...] Overview (09/01/2018): s/p EVAR, bilateral ARCHIE stenting [facility] Dr. Lopez Assessment & Plan (04/18/2025 11:54 AM EST): We will investigate with a lower extremity arterial duplex he had his Endo graft placed in [place] Assessment & Plan (08/24/2024 12:18 PM EDT): [...] Encounters Date Type Department Care Team Description 04/26/2025 Refill [facility] [address], [address] [place] [address] Maria C Franco MA Medication Refill 04/19/2025 Orders Only [facility] Pulmonology, Allergy and Critical Care Medicine Clinic [address] [facility] [place] [address] Aayush Avalos MD 04/18/2025 11:45 AM EST Office Visit [facility] [address], [address] [place] [address] Tony Sargent DO Paroxysmal atrial fibrillation (Primary Dx); Ischemic cardiomyopathy; Essential hypertension; Abdominal aortic aneurysm (AAA) without rupture, unspecified part 03/30/2025 Orders Only [facility] [address], [address] [place] [address] Jamie Soto MD 02/21/2025 Refill [facility] [address], [address] [place] [address] Tony Sargent DO Medication Refill 02/15/2025 2:17 PM EDT - 02/15/2025 11:59 PM EDT Hospital Encounter [facility] Phleb [facility] [address] [facility] [place] [address] Radha Garcia MD Discharge Disposition: Home or Self Care 02/15/2025 1:00 PM EDT Office Visit [facility] [address] [facility], 4th Floor, [address] [place] [address] Radha Garcia MD Hypogammaglobulinemia (Primary Dx); Autoimmune encephalitis; Recurrent infections; CD4 T lymphopenia 02/15/2025 Orders Only [facility] [address] [facility], 4th Floor, [address] [place] [address] Radha Garcia MD Research exam (Primary Dx) 02/08/2025 Orders Only [facility] [address], [address] [place] [address] ProviderTanner MD 02/07/2025 Telephone [facility] [address] [facility], 4th Floor, [address] [place] [address] Radha Garcia MD 02/03/2025 1:00 PM EDT Office Visit [facility] [address], [address] [place] [address] Traci Gallardo DNP Coronary artery disease 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 (Primary Dx); Paroxysmal atrial fibrillation; Ischemic cardiomyopathy; ICD (implantable cardioverter-defibrillator) in place from Last 3 Months Immunizations Immunization Administration [...] Sign Reading Time Taken Comments Blood Pressure 130/72 04/18/2025 11:36 AM EST Pulse 67 04/18/2025 11:36 AM EST Temperature 36.6 C (97.8 F) 01/27/2025 10:39 PM EDT Respiratory Rate 18 01/27/2025 10:39 PM EDT Oxygen Saturation 97% 04/18/2025 11:36 AM EST Inhaled Oxygen Concentration 60% 09/09/2018 4 :00 PM EDT Weight 88 kg (194 lb) 04/18/2025 11:36 AM EST Height 177.8 cm (5' 10 ) 04/18/2025 11:36 AM EST Body Mass Index 27.84 04/18/2025 11:36 AM EST Plan of Treatment Upcoming Encounters Date Type Department Care Team (Late st Contact Info) Description 08/24/2024 Procedure Pass [facility] [place] [address] [address] [place] [address] 04/18/2025 Procedure Pass [facility] [address] [place] [address], [address] [place] [phone] 08/24/2025 11:15 AM EDT Appointment [facility] [place] [place] [address] Tony Sargent DO [address] [place] [address] [place] [phone] 10/18/2025 9:15 AM EDT Appointment [facility] [address] [place] [address] Tony Sargent DO [address] [facility] [address] [place] [phone] 10/31/2025 9:45 AM EDT Office Visit [facility] [address] [place] [address], [address] [place] [address] Tony Sargent DO [address] [facility] [address] [place] [phone] [email or web address] Health Maintenance Due Date Last Done Comments Adult Td,Tdap Booster 1950 ZOSTER VACCINES (1 of 2) 1998 DEPRESSION SCREENING 09/03/2019 09/02/2018 TSH LEVEL 12/17/2022 12/17/2021, 02/03, 06/11/2018, Additional history exists RSV VACCINE (1 - 1-dose 75+ series) 2023 VALPROIC ACID (DEPAKENE) LEVEL 12/02/2024 12/03/2023 COVID-19 VACCINE ( season) 2025 03/04/2022, 03/09/2021, 08/02/2020, Additional history exists BLOOD PRESSURE 10/17/2025 04/18/2025 CREATININE LEVEL 01/27/2026 01/27/2025, 02/2025, 04/12/2024, Additional [...] this topic Medical Devices Implanted Type Area Transformation Manager Device Identifier Shelf Expiration Date Model / Serial / Lot Medtronic ICD Stent Drug Eluting [id number] [facility] - [id number] Implanted:Qty: 1 on 09/02/2018 by Alyssa York MD, PhD at [facility] Stent BIOTRONIK 02/13/2020 [id number] / / [id number] Procedures Procedure Name Priority Date/Time Associated Diagnosis Comments IMMUNOFIXATION Routine 02/15/2025 2:33 PM EDT CBC AND DIFFERENTIAL Routine 02/15/2025 2:33 PM EDT Hypogammaglobulinem ia Autoimmune encephalitis Recurrent infections FREE LIGHT CHAINS, SERUM Routine 025 2:33 PM EDT Hypogammaglobulinem ia Autoimmune encephalitis Recurrent infections SPEP PANEL Routine 02/15/2025 2:33 PM EDT Hypogammaglobulinem ia Autoimmune encephalitis Recurrent infections IMMUNODEFICIENCY PANEL Routine 2:33 PM EDT Hypogammaglobulinem ia Autoimmune encephalitis Recurrent infections LYMPHOCYTE PROLIFERATION ANTI-CD3 Routine 02/15/2025 2:33 PM EDT Hypogammaglobulinem ia Autoimmune encephalitis Recurrent infections Pneumococcus IgG antibody (23 serotypes) Routine 02/15/2025 2:33 PM EDT Hypogammaglobulinem ia Autoimmune encephalitis Recurrent infections Tetanus antitoxoid antibody, IgG Routine 02/15/2025 2:33 PM EDT Hypogammaglobulinem ia Autoimmune encephalitis Recurrent infections T SPOT TB TEST Routine 02/15/2025 2:33 PM EDT Hypogammaglobulinem ia Autoimmune encephalitis Recurrent infections BASIC METABOLIC PANEL (BMP) STAT 01/27/2025 7:46 PM EDT HEPATITIS B SURFACE ANTIGEN Routine 10/12/2024 9:32 AM EDT VALPROIC ACID Routine 12/03/2023 1:36 PM EDT Autoimmune encephalitis TSH WITH REFLEX Routine 12/17/2021 11:58 AM EDT Encounter for monitoring amiodarone therapy from Last 3 Months or Most Recently Relevant to Health Maintenance Results * Lymphocyte proliferation anti-CD3 (02/15/2025 2:33 PM EDT) VIAB LYMPHS DAY 0 81.9 >=75 % [place] [facility] [address] SOLUB ACD3 % CD45 70.1 >=19.4 % [place] [facility] [facility] SOLUB ACD3 % CD3 79.7 >=20.3 % [place] [facility]PATH [address] SOLUB ACD28 % CD45 76.4 >=37.5 % [place] [facility]PATH [facility] DR SOLUB ACD28 % CD3 84.2 >=44.6 % [place] [facility] [facility]PATH [facility] DR SOLUB IL2 % CD45 76.6 >=41.7 % [place] [facility] MED/PATH [facility] DR SOLUB IL2 % CD3 82.9 >=46.2 % [place] [facility] MED/PATH [facility] DR LPA3P INTERP SEE NOTE [facility] Comment: (NOTE) Normal lymphocyte proliferative responses to soluble anti-CD3, anti-CD3 + anti-CD28 and anti-CD3 + IL-2. Reviewed by: Markus Solano M.D., D. , D(ALONDRA) ADDITIONAL INFORMATION Reference values implemented February 04, [...] using critical ambient shipping boxes available through [facility] [employer] ([facility]) inventory to ensure optimal transport of critical [...] reagent. Its performance characteristics were determined by [facility] in a manner consistent with CLIA requirements. This test has not been cleared or approved by the U.S. Food and Drug Administration. LPA3P ACD3 COMMENT Test component not applicable or not reported. [facility] MED/PATH [facility]IOR 02/15/2025 2:33 PM EDT 02/15/2025 2:45 PM EDT Radha Garcia MD LAB BLOOD ORDERABLES Final Re sult Performing Organization Address City/[facility]/ZIP Co de Phone Number [facility] LAB MED/[address] [place] [address] * Immunofixation only (02/15/2025 2:33 PM EDT) Pathologist [facility] IMMUNOFIXATION No M-compone nt detected. [facility] Comment:Performing Pathologi st, Jean-Pierre Goel M.D., Ph.D. [id number] 02/15/2025 2:33 PM EDT 02/15/2025 2:45 PM EDT Radha Garcia MD LAB BLOOD BKR ORDERABLES Tiffany l Result Performing Organization Address City/[facility]/ZIP Co de Phone Number [address] [address] * (ABNORMAL) Immunodeficiency Panel (02/15/2025 2:33 PM EDT) Pathologist [facility] CD3+ (ABS) 997 474 - 1,600 /uL [facility] CD3+ (PCT) 80.0(H) 45.0 - 79.0 %Lymphs [facility] CD3+ CD4+ (ABS) 778 256 - 1,198 /uL [facility] CD3+ CD4+ (PCT) 62.4 26.0 - 64.0 %Lymphs [facility] CD3+ CD8+ (ABS) 189 86 - 556 /uL [facility] CD3+ CD8+ (PCT) 15.2 7.0 - 36.0 %Lymphs [facility] CD4-CD8-CD3+ (ABS) 21 6 - 214 Cells/uL [facility] CD4-CD8-CD3+ (PCT) 1.7 1 - 12 % [facility] CD3- CD19+ (ABS) <1(L) 79 - 472 /uL [facility] CD3- CD19+ (PCT) <0.1(L) 7.0 - 26.0 %Lymphs [facility] CD3-CD(16+56)+ (ABS) 237 41 - 531 /uL [facility] CD3-CD(16+56)+ (PCT) 19.0 4.0 - 36.0 %Lymphs [facility] CD27+CD19+ (ABS) <1(L) 14 - 123 Cells/uL [facility] CD27+CD19+ (PCT) <0.1(L) 9 - 62 % [facility] VzP-TxV-GM61+CD1 9+ (ABS) <1(L) 5 - 43 Cells/uL [facility] SzM-TuD-ZL91+CD1 9+ (PCT) <0.1(L) 3 - 16 % [facility] CD45RA+CD4+ (ABS) 101 16 - 502 Cells/uL [facility] CD45RA+CD4+ (PCT) 12.9 6 - 57 % [facility] CD45RO+CD4+ (ABS) 494(H) 79 - 439 Cells/uL [facility] CD45RO+CD4+ (PCT) 63.4 20 - 81 % [facility] Transitional CD4+ T-Cells ABS 184 17 - 215 Cells/uL [facility] Transitional CD4+ T-Cells PCT 23.6 8 - 30 % [facility] CD45RA+CD8+ (ABS) 48 29 - 426 Cells/uL [facility] CD45RA+CD8+ (PCT) 25.2(L) 27 - 69 % [facility] CD45RO+CD8+ (ABS) 67 11 - 200 Cells/uL [facility] CD45RO+CD8+ (PCT) 35.4 13 - 57 % [facility] Transitional CD8+ T-Cells ABS 75 7 - 101 Cells/uL [facility] Transitional CD8+ T-Cells PCT 39.4(H) 8 - 38 % [facility] 02/15/2025 2:33 PM EDT 02/15/2025 2:45 PM EDT Radha Garcia MD LAB BLOOD ORDERABLES Final Re sult [facility] [address] [place] [phone] * (ABNORMAL) SPEP PANEL (02/15/2025 2:33 PM EDT) Total Protein 5.3(L) 6.0 - 8.3 g/dL [facility] IMMUNOGLOBULIN G 345(L) 614 - 1,295 mg/dL [facility] IgA 24(L) 69 - 309 mg/dL [facility] IMMUNOGLOBULIN M 8(L) 53 - 334 mg/dL [facility] SPEP Normal pattern, marked diffuse decrease in gamma globulin. [facility] Comment: Normal SPEP: Normal pattern Please see Immunofixation for final results. Performing Pathologist, Jean-Pierre Goel M.D., Ph.D. [phone] Serum protein electrophoresis results should be evaluated in the context of separately reported serum free light chain levels and ratio when these additional results are available. 02/15/2025 2:33 PM EDT 02/15/2025 2:45 PM EDT Radha Garcia MD LAB BLOOD BKR ORDERABLES Tiffany l Result Performing Organization Address City/[facility]/ZIP Co de Phone Number [facility] [address] [place] [address] * T spot TB test (02/15/2025 2:33 PM EDT) T-SPOT.TB Negative Negative [employer] [facility] Comment: (NOTE) A negative test result does [...] Spot Count Corrected For Neg Control 0 [facility] Panel B Spot Count Corrected For Neg Control 2 [facility] Negative Control Passed [facility] [employer] Positive Control Passed [facility] [employer] Comment: (NOTE) For additional information, please refer to http://education.[employer]/faq/HFB883 (This link is being provided for informational/ educational purposes only.) 02/15/2025 2:33 PM EDT 02/15/2025 2:46 PM EDT us Radha Garcia MD LAB BLOOD ORDERABLES Final Re sult [facility] [id number] [place], [place] * Tetanus antitoxoid antibody, IgG (02/15/2025 2:33 PM EDT) Pathologist [facility] Tetanus Ab, IgG Positive [facility] LAB MED/PATH [address] MUNOZ Comment: (NOTE) REFERENCE VALUE Vaccinated: Positive (>= 0.01 IU/mL) Unvaccinated: Negative (< 0.01 IU/mL) Tetanus IgG Value 0.91 IU/mL [facility] Comment: (NOTE) ADDITIONAL INFORMATION This test was developed and its performance characteristics determined by [facility] in a manner consistent with CLIA requirements. This test has not been cleared or approved by the U.S. Food and Drug Administration. 02/15/2025 2:33 PM EDT 02/15/2025 2:45 PM EDT us Radha Garcia MD LAB BLOOD ORDERABLES Final Re sult [facility] [address] [place] [address] * Pneumococcus IgG antibody (23 serotypes) (02/15/2025 2:33 PM EDT) Serotype 1 (1) 0.1 >=1.0 mcg/mL [facility] [address] Serotype 2 (2) 0.5 >=1.0 mcg/mL [facility]PATH [address] Serotype 3 (3) 0.1 >=1.0 mcg/mL [facility] [address] Serotype 4 (4) <0.1 >=1.0 mcg/mL [facility] [address] Serotype 5 (5) <0.1 >=1.0 mcg/mL [facility]PATH [address] Serotype 8 (8) 0.1 >=1.0 mcg/mL [...] DR Serotype 10A (34) 0.2 >=1.0 mcg/mL [facility] MED/PATH [address] Serotype 11A (43) 0.1 >=1.0 mcg/mL [facility] MED/PATH [address] Serotype 7F (51) 0.3 >=1.0 mcg/mL [facility] MED/PATH [address] DR Serotype 18C (56) 0.3 >=1.0 mcg/mL [facility] MED/PATH [address] Serotype 19A (57) 0.1 >=1.0 mcg/mL [facility] MED/PATH [address] Serotype 9V (68) <0.1 >=1.0 mcg/mL [facility] [address] [facility] Serotype 33F (70) 0.1 >=1.0 mcg/mL [facility] MED/PATH [address] DR Interpretation SEE NOTE [facility] MED/PATH [facility]IOR Comment: (NOTE) Evaluation of the immune response [...] developed and its performance characteristics determined by [facility] in a manner consistent with CLIA requirements. This test has not been cleared or approved by the U.S. Food and Drug Administration. 02/15/2025 2:33 PM EDT 02/15/2025 2:45 PM EDT us Radha Garcia MD LAB BLOOD BKR ORDERABLES Tiffany l Result [facility]PATH [address] [place] [address] * Free light chains, serum (02/15/2025 2:33 PM EDT) FREE KAPPA LT CHAIN 5.9 3.3 - 19.4 mg/L [facility] FREE LAMBDA LT CHAIN 8.7 5.7 - 26.3 mg/L [facility] FREE KAPPA LAMBDA RAT 0.68 0.30 - 1.70 [facility] 02/15/2025 2:33 PM EDT 02/15/2025 2:45 PM EDT Radha Garcia MD LAB BLOOD BKR ORDERABLES Tiffany l Result Performing Organization Address City/[facility] Co de Phone Number [facility] [address] [place] [address] * (ABNORMAL) CBC and differential (02/15/2025 2:33 PM EDT) WBC 5.85 4.00 - 11.00 K/uL [facility] RBC 4.25(L) 4.50 - 5.90 M/uL [facility] HGB 11.6(L) 13.5 - 17.5 g/dL [facility] HCT 38.3(L) 41.0 - 53.0 % [facility] PLT 168 150 - 450 K/uL [facility] MCV 90.1 80.0 - 100.0 fL [facility] MCH 27.3 27.0 - 31.0 pg [facility] MCHC 30.3(L) 32.0 - 36.0 g/dL [facility] RDW 15.3(H) 11.5 - 14.5 % [facility] MPV 10.9 8.4 - 12.0 fL [facility] NRBC 0.00 0.00 /100 WBCs [facility] ABSOLUTE NRBC 0.00 0.00 K/uL [facility] DIFF METHOD Auto [facility] NEUTS 62.2 48.0 - 76.0 % [facility] LYMPHS 22.2 18.0 - 41.0 % [facility] MONOS 10.8 4.0 - 11.0 % [facility] EOS 3.9 0.0 - 5.0 % [facility] BASOS 0.7 0.0 - 1.5 % [facility] % IMMATURE GRANS 0.2 0.0 - 0.9 % [facility] ABSOLUTE NEUTS 3.64 1.92 - 7.60 K/uL [facility] ABSOLUTE LYMPHS 1.30 0.72 - 4.10 K/uL [facility] ABSOLUTE MONOS 0.63 0.16 - 1.10 K/uL [facility] ABSOLUTE EOS 0.23 0.00 - 0.50 K/uL [facility] ABSOLUTE BASOS 0.04 0.00 - 0.15 K/uL [facility] ABS IMMATURE GRANS 0.01 0.00 - 0.09 K/uL [facility] Blood 02/15/2025 2:33 PM EDT 02/15/2025 2:45 PM EDT us Radha Garcia MD LAB BLOOD BKR ORDERABLES Tiffany l Result [facility] [address] [place] [address] * (ABNORMAL) Basic metabolic panel (01/27/2025 7:46 PM EDT) SODIUM 143 133 - 146 mmol/L [facility] CHLORIDE 107 96 - 108 mmol/L [facility] POTASSIUM 4.2 3.3 - 5.1 mmol/L [facility] CO2 24 21 - 35 mmol/L [facility] BUN 26(H) 6 - 19 mg/dL [facility] CREATININE 1.00 0.5 - 1.5 mg/dL [facility] GLUCOSE 86 70 - 99 mg/dL [facility] CALCIUM 9.4 8.4 - 10.3 mg/dL [facility] EGFR 78 >59 mL/min/1.7 3m2 [facility] Comment:Estimated glomerular filtration rate calculated using the CKD-EPI refit equation. ANION GAP 16 10 - 20 mmol/L [facility] Blood 01/27/2025 7:46 PM EDT 01/27/2025 8:01 PM EDT us Raul Maddox MD LAB BLOOD BKR ORDERABLES Final Result Performing Organization Address City/[facility]/ZIP Co de Phone Number [address] [address] * Hepatitis B surface antigen (10/12/2024 9:32 AM EDT) HBV SURFACE ANTIGEN NON-REACTI VE NON-REACTI VE [facility] 10/12/2024 9:32 AM EDT 10/12/2024 10:54 AM EDT us Dillon Gee MD LAB BLOOD BKR ORDER LILA Final Result Performing Organization Address [facility] Co de Phone Number [address] [address] * Valproic acid (12/03/2023 1:36 PM EDT) VALPROIC ACID 62.7 50.0 - 100.0 ug/mL [facility] 12/03/2023 1:36 PM EDT 12/03/2023 5:05 PM EDT us Whitney García MD LAB BLOOD BKR ORDERABLES Final Result Performing Organization Address City/[facility]/ZIP Co de Phone Number [address] [address] * TSH with reflex (12/17/2021 11:58 AM EDT) TSH 2.60 0.27 - 4.20 uIU/mL [facility] Blood 12/17/2021 11:5 8 AM EDT 12/17/2021 12:00 PM EDT us Seymour Ferris NP LAB BLOOD BKR ORDERABL ES Final Result Performing Organization Address City/[facility]/ZIP Co de Phone Number [address] [address] from Last 3 Months or Most Recently Relevant to Health Maintenance Insurance MEDICARE PART A & B [employer] SUPPLEMENT MEDICARE PART A & B [employer]EX SUPPLEMENT MEDICARE PART A & B [facility] MEDEX SUPPLEMENT MEDICARE PART A & B [employer] MEDEX SUPPLEMENT MEDICARE PART A & B [employer] MEDEX SUPPLEMENT MEDICARE PART A & B [employer] MEDEX SUPPLEMENT MEDICARE PART A & B [employer] MEDEX SUPPLEMENT MEDICARE PART A & B [employer] MEDEX SUPPLEMENT MEDICARE PART A & B [employer] MEDEX SUPPLEMENT Advance Directives For more information, please contact: [phone] (9AM - 5PM [place], Friday-Friday) * Full Code (Confirmed) (Latest Code Status on File) Date Activated Date Inactivated Comments 09/02/2018 9:07 PM 09/21/2018 3:45 PM Question Answer Comments Code Status Confirmed With: Family Care Teams Physiotherapy Assistant Relationship Specialty Start Date End Date Ezra Denney NP [address] [facility] [address] PCP - General Family Medicine 07/07/19 Tony Miranda MD [email or web address] Historical LMR Provider 02/20/17 Jamie Soto MD [address] [place] [address] [email or web address] Historical LMR Provider 02/20/17 Rinku Carrizales MD [address] [place] [address] [email or web address] Historical LMR Provider 02/20/17 Additional Source Comments The information contained in this document represents components of the legal health record. It is not the complete legal health record.[facility]
--- OUTSIDE RECORDS SUMMARY | 2025-05-04 09:46 | XMS_ITS | Clinical Summary ---
Author Organization [facility] Address [address] [place] [phone] Phone Care Team Providers Care Band Tumbler Name Role Phone Ezra Denney NP Primary [...] 11:00 AM EDT Office Visit Endocrinology - [place] [address] [place] [address] Colin Martinez MD [address] [place] [address] Health Maintenance Due Date Last Done Comments Drug Screen 1950 Non-Opioid Controlled Substance Agreement 1950 DTaP,Tdap,and Td Vaccines (1 - Tdap) 1967 [...] 2023 Depression Screening 05/05/2024 COVID-19 Vaccine ( - season) 2025 03/04/2022, 03/09/2021, 08/02/2020, Additional history [...] LAB CHEMISTRY METHOD 06/07/2024 11:08 AM EST [facility] Potassium 4.0 3.5 - 5.5 mmol/L LAB CHEMISTRY METHOD 06/07/2024 11:08 AM EST [facility] Chloride 107 96 - 110 mmol/L LAB CHEMISTRY METHOD 06/07/2024 11:08 AM [facility] CO2 28 21 - 32 mmol/L LAB CHEMISTRY METHOD 06/07/2024 11:08 AM [facility] Anion Gap 7 3 - 11 LAB CHEMISTRY METHOD 06/07/2024 11:08 AM [facility] Glucose 65(L) 70 - 100 mg/dL LAB CHEMISTRY METHOD 06/07/2024 11:08 AM [facility] BUN 15 5 - 25 mg/dL LAB CHEMISTRY METHOD 06/07/2024 11:08 AM [facility] Creatinine 0.81 0.70 - 1.30 mg/dL LAB CHEMISTRY METHOD 06/07/2024 11:08 AM [facility] eGFR 91 >=60 mL/min/1. 73m2 LAB CHEMISTRY METHOD 06/07/2024 11:08 AM [facility] Comment:Calculation based on the Chronic Kidney Disease Epidemiology Collaboration (CKD-EPI) equation refit without adjustment for race. BUN/Creatinine Ratio 18.5 LAB CHEMISTRY METHOD 06/07/2024 11:08 AM [facility] Calcium 9.1 8.5 - 10.5 mg/dL LAB CHEMISTRY METHOD 06/07/2024 11:08 AM [facility] Blood Venous blood specimen / Unknown Venipuncture / Unknown 06/07/2024 7:01 AM EST 06/07/2024 9:23 AM EST us Eugene Wilson MD LAB BLOOD ORDERABLES Final Res ult [facility] [address] [place] [address], from Last 3 Months or Most Recently Relevant to Health Maintenance Insurance MEDICARE [facility] Care Teams Band Tumbler Relationship Specialty Start Date End Date Ezra Denney NP [address] [place], [place] PCP - General 06/24/23
--- OUTSIDE RECORDS SUMMARY | 2025-05-04 09:47 | XMS_ITS | Encounter Summary ---
Author Organization [facility] Address [address] [place] [address] Phone Care Team Providers Care Vehicle Maintenance Supervisor Name Role Phone Seymour Ferris Renay MOBILE LAB TECHNICIAN Unavailable [phone] Tony Miranda MD Unavailable Keyla Melton Unavailable [email or web address] Jamie Soto MD Unavailable Mamadou Loving DO Unavailable Roger Jorgensen MOBILE LAB TECHNICIAN Unavailable [phone] Rinuk Carrizales MD Unavailable [phone] Ezra Denney NP Primary Care Provider + Encounter Details Date Type Department Care Team (Late st Contact Info) Description 02/23/2020 Procedure Pass [facility] Non-Invasive Cardiology [address] [place] [address] Social History Tobacco Use Types [...] Procedure Pass [facility] [address] [place] [address] 04/18/2025 Procedure Pass [facility] 22 [facility] 3rd [facility], [address] [place] [address] 08/24/2025 11:15 AM EDT Appointment [facility] [address] [place] [address] Tony Sargent, DO 22 [facility] [address] [place] [address] 10/18/2025 9:15 AM EDT Appointment [facility] [address] [place] [address] Tony Sargent, DO [address] [place] [address] [place] [address] 10/31/2025 9:45 AM EDT Office Visit [facility]ovascular [address], [address] [place] [address] Tony Sargent, DO [address] [address] documented as of this encounter Visit Diagnoses Not on filedocumented in this encounter Care Teams Vehicle Maintenance Supervisor Relationship Specialty Start Date End Date Ezra Denney NP [address] [facility] [place] [address] PCP - General Family Medicine 07/07/19 Seymour Ferris NP [facility] [address] [place] [address] [email or web address] Historical LMR Provider 02/20/1705/12/21 Tony Miranda MD [address] [place] [address] 100 [place] [address] [email or web address] Historical LMR Provider 02/20/17 Keyla Melton PA [email or web address] Historical LMR Provider 02/20/17 05/12/21 Jamie Soto MD 22 [facility] [address] [place] [address] [email or web address] Historical LMR Provider 02/20/17 Mamadou Loving DO [address] [place] [address] Historical LMR Provider 02/20/17 Roger Jorgensen NP [address] [place] [address] [address] [place] [address] Historical LMR Provider 02/20/17 2 Rinku Carrizales MD [address] [place] [address] [email or web address] Historical LMR Provider 02/20/17 documented as of this encounter Additional Source Comments The information contained in this document represents components of the legal health record. It is not the complete legal health record.[facility]
--- OUTSIDE RECORDS SUMMARY | 2025-05-04 09:47 | XMS_ITS | Encounter Summary ---
Author Organization [facility] Address [address] [place] [address] [place] [address] Phone Care Team Providers Care Retort Furnace Operator Name Role Phone Tony Miranda MD Unavailable Jamie Soto MD Unavailable [phone] Rinku Carrizales MD Unavailable [phone] Ezra Denney ACLS NURSE Primary Care Provider + Encounter Details Date Type Department Care Team (Late st Contact Info) Description 04/19/2025 Orders Only [facility] Pulmonology, Allergy and Critical Care Medicine Clinic [address] [place] [address] [place] [address] Aayush Avalos MD [address] [address] [email or web address] Social History Tobacco Use Types Packs/Day Years [...] Procedure Pass [facility] [address] [place] [address] 04/18/2025 [facility] [address] [facility], [address] [place] [address] 08/24/2025 11:15 AM EDT Appointment [facility] [address] [place] [address] Tony Sargent, DO 22 [facility] [address] [place] [address] 10/18/2025 9:15 AM EDT Appointment [facility] [address] [place] [address] Tony Sargent, DO [address] [place] [address] [place] [address] 10/31/2025 9:45 AM EDT [facility] [address] [place] [address], [address] [place] [address] Tony Sargent, DO 22 [facility] [address] [place] [address] documented as of this encounter Visit Diagnoses Not on filedocumented in this encounter Care Teams Retort Furnace Operator Relationship Specialty Start Date End Date Ezra Denney NP [address] [facility] [place] [address] PCP - General Family Medicine 07/07/19 Tony Miranda MD [email or web address] Historical LMR Provider 02/20/17 Jamie Soto MD [address] [place] [address], [address] [place] [address] [email or web address] Historical LMR Provider 02/20/17 Rinku Carrizales MD [address] [address] [email or web address] Historical LMR Provider 02/20/17 documented as of this encounter Additional Source Comments The information contained in this document represents components of the legal health record. It is not the complete legal health record.[facility]
--- OUTSIDE RECORDS SUMMARY | 2025-05-04 09:47 | XMS_ITS | Encounter Summary ---
Author Organization [facility] Address [address] [place] [address] Phone Care Team Providers Care Abrasive Grader Name Role Phone Tony Miranda MD Unavailable Jamie Soto MD Unavailable Rinku Carrizales MD Unavailable [phone] Ezra Denney AERIAL HURRICANE HUNTER Primary Care Provider + Encounter Details Date Type Department Care Team (Late st Contact Info) Description 02/14/2023 Procedure Pass [facility] Non-Invasive Cardiology [address] [place] [address] Social History Tobacco Use Types Packs/Day Years [...] Contact Info) Description 08/24/2024 Procedure Pass [facility] [address] [place] [address] 04/18/2025 Procedure Pass [facility] [address] [place] [address], [address] [place] [address] 08/24/2025 11:15 AM EDT Appointment [facility] [address] [place] [address] Tony Sargent, DO [address] [place] [address] 10/18/2025 9:15 AM EDT Appointment [facility] [address] [place] [address] Tony Sargent DO [address] [address] 10/31/2025 9:45 AM EDT Office Visit [facility] [address], [address] [place] [address] Tnoy Sargent DO [address] [address] documented as of this encounter Visit Diagnoses Not on filedocumented in this encounter Care Teams Abrasive Grader Relationship Specialty Start Date End Date Ezra Denney NP [address] [facility] [place] [address] PCP - General Family Medicine 07/07/19 Tony Miranda MD [email or web address] Historical LMR Provider 02/20/17 Jamie Soto MD [address] [place] [address] [email or web address] Historical LMR Provider 02/20/17 Rinku Carrizales MD [address] [place] [address] [email or web address] Historical LMR Provider 02/20/17 documented as of this encounter Additional Source Comments The information contained in this document represents components of the legal health record. It is not the complete legal health record.[facility]
--- OUTSIDE RECORDS SUMMARY | 2025-05-04 09:47 | XMS_ITS | Encounter Summary ---
Author Organization [facility] Address [address] [place] [address] Phone Care Team Providers Care Greeting Card Maker Name Role Phone Mamadou Loving DO Primary Care Provider [phone] Seymour Ferris LOCKSTITCH LINING SETTER Unavailable Tony Miranda MD Unavailable Keyla Melton Unavailable [email or web address] Jamie Soto MD Unavailable Mamadou Loving DO Unavailable Roger Jorgensen LOCKSTITCH LINING SETTER Unavailable [phone] Rinku Carrizales MD Unavailable [phone] Ezra Denney NP Primary Care Provider + Encounter Details Date Type Department Care Team (Late st Contact Info) Description 12/02/2017 Procedure Pass [facility] - [facility] [address] [place] [address] Social History Tobacco Use Types Packs/Day Years [...] Procedure Pass [facility] [address] [place] [address] 04/18/2025 Procedure Pass [facility] [address] [facility], [address] [place] [address] 08/24/2025 11:15 AM EDT Appointment [facility] [address] [place] [address] Tony Sargent, DO [address] [place] [address] [place] [address] [email or web address] 10/18/2025 9:15 AM EDT Appointment [facility] [address] [place] [address] Tony Sargent, DO [address] [place] [address] [place] [address] 10/31/2025 9:45 AM EDT Office Visit [facility] [address], [address] [place] [address] Tony Sargent, DO [address] [place] [address] documented as of this encounter Visit Diagnoses Not on filedocumented in this encounter Care Teams Greeting Card Maker Relationship Specialty Start Date End Date Mamadou Loving DO [address] [place] [address] PCP - General 02/20/17 07/06/19 Ezra Denney, NACHO [address] [facility] [place] [address] PCP - General Family Medicine 07/07/19 Seymour Ferris, NACHO 101 [facility] 100 [place] [address] [email or web address] Historical LMR Provider 02/20/1705/12/21 Tony Miranda MD 101 [facility] 100 [place] [address] [email or web address] Historical LMR Provider 02/20/17 Keyla Melton PA Historical LMR Provider 02/20/17 05/12/21 Jamie Soto MD [address] [place] [address] [email or web address] Historical LMR Provider 02/20/17 Mamadou Loving DO [address] [place] [address] Historical LMR Provider 02/20/17 Roger Jorgensen NP [address] [place] [address] [address] Historical LMR Provider 02/20/17 2 Rinku Carrizales MD [address] [place] [address] [email or web address] Historical LMR Provider 02/20/17 documented as of this encounter Additional Source Comments The information contained in this document represents components of the legal health record. It is not the complete legal health record.[facility]
--- OUTSIDE RECORDS SUMMARY | 2025-05-04 09:47 | XMS_ITS | Encounter Summary ---
Author Organization [facility] Address [address] [place] [address] Phone Care Team Providers Care Character Impersonator Name Role Phone Seymour Ferris Renay WEATHERIZATION CREW LEADER Unavailable Tony Miranda MD Unavailable Keyla Melton Unavailable [email or web address] Jamie Soto MD Unavailable [phone] Mamadou Loving DO Unavailable Roger Jorgensen WEATHERIZATION CREW LEADER Unavailable [phone] Rinku Carrizales MD Unavailable [phone] Ezra Denney WEATHERIZATION CREW LEADER Primary Care Provider + Encounter Details Date Type Department Care Team (Late st Contact Info) Description 03/05/2020 Procedure Pass [facility] [address] [place] [address] Social History Tobacco Use Types [...] Procedure Pass [facility] [address] [place] [address] 04/18/2025 Procedure Pass [facility] [address] [place] [address] 3rd [facility], [address] [place] [address] 08/24/2025 11:15 AM EDT Appointment [facility] [address] [place] [address] Tony Sargent, DO [address] [place] [address] [place] [address] [email or web address] 10/18/2025 9:15 AM EDT Appointment [facility] [address] [place] [address] Tony Sargent, DO [address] [place] [address] [place] [address] 10/31/2025 9:45 AM EDT Office Visit [facility] [address], [address] [place] [address] Tony Sargent DO [address] [address] documented as of this encounter Visit Diagnoses Not on filedocumented in this encounter Care Teams Character Impersonator Relationship Specialty Start Date End Date Ezra Denney NP [address] [facility] [place] [address] PCP - General Family Medicine 07/07/19 Seymour Ferris NP 101 [facility] 100 [place] [address] [email or web address] Historical LMR Provider 02/20/1705/12/21 Tony Miranda MD 101 [facility] 100 [place] [address] [email or web address] Historical LMR Provider 02/20/17 Keyla Melton PA [email or web address] Historical LMR Provider 02/20/17 05/12/21 Jamie Soto MD [address] [address] [email or web address] Historical LMR Provider 02/20/17 Mamadou Loving DO [address] [place] [address] Historical LMR Provider 02/20/17 Roger Jorgensen NP [address] [place] [address] [address] [place] [address] Historical LMR Provider 02/20/17 2 Rinku Carrizales MD [address] [place] [address] [email or web address] Historical LMR Provider 02/20/17 documented as of this encounter Additional Source Comments The information contained in this document represents components of the legal health record. It is not the complete legal health record.[facility]
--- OUTSIDE RECORDS SUMMARY | 2025-05-04 09:47 | XMS_ITS | Encounter Summary ---
Author Organization [facility] Address [address] [place] [address] Phone Care Team Providers Care [employer] Fitness Instructor Name Role Phone Mamadou Loving DO Primary Care Provider [phone] Seymour Ferris MICA PARTS SPRAYER Unavailable Tony Miranda MD Unavailable Keyla Melton Unavailable [email or web address] Jamie Soto MD Unavailable Mamadou Loving DO Unavailable Roger Jorgensen MICA PARTS SPRAYER Unavailable [phone] Rinku Carrizales MD Unavailable [phone] Ezra Denney NP Primary Care Provider + Encounter Details Date Type Department Care Team (Latest Contact Info) Description 09/12/2017 Ancillary Orders [facility] [address] [place] [address] Tony [place] [address] [email or web address] Ischemic cardiomyopathy Social History Tobacco Use [...] st Contact Info) Description 08/24/2024 Procedure Pass [facility] [address] [place] [address] 04/18/2025 Procedure Pass [facility] [address] [place] [address] [place] [address], [address] [place] [address] 08/24/2025 11:15 AM EDT Appointment [facility] [address] [place] [address] Tony Sargent [address] [address] [email or web address] 10/18/2025 9:15 AM EDT Appointment [facility] [address] [place] [address] Tony Sargent [address] [address] [email or web address] 10/31/2025 9:45 AM EDT Office Visit [facility] [address] [place] [address] [place] [address], [address] [place] [address] Tony Sargent DO [address] [place] [address] [email or web address] documented as of this encounter Results * [...] device: Ischemic cardiomyopathy Examination: Device type: ICD Educational Diagnostician: Medtronic Mode: VVI LRL/URL: 40/- bpm Thresholds, [...] disease documented in this encounter Care Teams Aqu[employer] Group Fitness Instructor Relationship Specialty Start Date End Date Mamadou Loving DO 5 [place] [address] PCP - General 02/20/17 07/06/19 Ezra Denney NP [address] [facility] [place] [address] PCP - General Family Medicine 07/07/19 Seymour Ferris NP [address] [place] [address] [email or web address] Historical LMR Provider 02/20/1705/12/21 Tony Miranda MD [address] [place] [address] [email or web address] Historical LMR Provider 02/20/17 Keyla Melton PA Historical LMR Provider 02/20/17 05/12/21 Jamie Soto MD 22 [facility] [address] [place] [address] [email or web address] Historical LMR Provider 02/20/17 Mamadou Loving DO [address] [place] [address] Historical LMR Provider 02/20/17 Roger Jorgensen NP [address] [place] [address] [phone] Historical LMR Provider 02/20/17 2 Rinku Carrizales MD [address] [place] [address] [email or web address] Historical LMR Provider 02/20/17 documented as of this encounter Additional Source Comments The information contained in this document represents components of the legal health record. It is not the complete legal health record.[facility]
--- OUTSIDE RECORDS SUMMARY | 2025-05-04 09:47 | XMS_ITS | Encounter Summary ---
Author Organization [facility] Address [address] [place] [address] Phone Care Team Providers Care Silk Crepe Machine Operator Name Role Phone Mamadou Loving DO Primary Care Provider [phone] Seymour Ferris CORRESPONDENT Unavailable Tony Miranda MD Unavailable Keyla Melton Unavailable [email or web address] Jamie Soto MD Unavailable Mamadou Loving DO Unavailable Roger Jorgensen CORRESPONDENT Unavailable Rinku Carrizales MD Unavailable [phone] Ezra Denney NP Primary Care Provider + Encounter Details Date Type Department Care Team (Late st Contact Info) Description 09/12/2017 Ancillary Orders [facility] [address] [place] [address] Tony Miranda MD [address] [place] [address] [place] [address] [email or web address] Social History Tobacco Use Types Packs/Day Years [...] [facility] [address] [place] [address] 04/18/2025 Procedure Pass [facility] [address], [address] [place] [address] 08/24/2025 11:15 AM EDT Appointment [facility] [address] [place] [address] Tony Sargent [address] [address] 10/18/2025 9:15 AM EDT Appointment [facility] [address] [place] [address] Tony Sargent [address] [address] 10/31/2025 9:45 AM EDT Office Visit [facility] [address] [place] [address], [address] [place] [address] Tony Sargent DO [address] [place] [address] documented as of this encounter Visit Diagnoses Not on filedocumented in this encounter Care Teams Silk Crepe Machine Operator Relationship Specialty Start Date End Date Mamadou Loving DO [address] [place] [address] PCP - General 02/20/17 07/06/19 Ezra Denney NP [address] [place] [address] PCP - General Family Medicine 07/07/19 Seymour Ferris, ANCHO 101 [facility] 100 [place] [address] [email or web address] Historical LMR Provider 02/20/1705/12/21 Tony Miranda MD 101 [facility] 100 [place] [address] [email or web address] Historical LMR Provider 02/20/17 Keyla Melton PA [email or web address] Historical LMR Provider 02/20/17 05/12/21 Jamie Soto MD [address] [place] [address] [email or web address] Historical LMR Provider 02/20/17 Mamadou Loving DO [address] [place] [address] Historical LMR Provider 02/20/17 Roger Jorgensen NP [address] [place] [address] [address] Historical LMR Provider 02/20/17 Rinku Bermudez MD [address] [place] [address] [email or web address] Historical LMR Provider 02/20/17 documented as of this encounter Additional Source Comments The information contained in this document represents components of the legal health record. It is not the complete legal health record.[facility]
--- OUTSIDE RECORDS SUMMARY | 2025-05-04 09:47 | XMS_ITS | Encounter Summary ---
Author Organization [facility] Address [address] [place] [address] Phone Care Team Providers Care Internal Consultant Name Role Phone Seymour Ferris Renay PROCUREMENT BUYER Unavailable Tony Miranda MD Unavailable Keyla Melton Unavailable [email or web address] Jamie Soto MD Unavailable [phone] Mamadou Loving DO Unavailable Roger Jorgensen PROCUREMENT BUYER Unavailable Rinku Carrizales MD Unavailable [phone] Ezra Denney PROCUREMENT BUYER Primary Care Provider + Encounter Details Date Type Department Care Team (Latest Contact Info) Description 03/14/2020 Ancillary Orders [facility] [address] [place] [address] Tony Miranda MD [address] [place] [address] [email or web address] Ischemic cardiomyopathy Social History Tobacco Use Types [...] 08/24/2024 Procedure Pass [facility] [address] [place] [address] [place] [address] 04/18/2025 Procedure Pass [facility] [address] [place] [address] [place] [address], [address] [place] [address] 08/24/2025 11:15 AM EDT Appointment [facility] [address] [place] [address] Tony Sargent [address] [place] [address] 10/18/2025 9:15 AM EDT Appointment [facility] [address] [place] [address] [place] [address] Tony Sargent [address] [place] [address] 10/31/2025 9:45 AM EDT Office Visit [facility] [address] [place] [address] [place] [address], [address] [place] [address] Tony Sargent DO [address] [place] [address] [place] [address] documented as of this encounter Results * [...] device: Ischemic caridomyopathy Examination: Device type: ICD Legal Operations Manager: Medtronic Mode: VVI LRL/URL: 40/- bpm Thresholds, [...] for device: Ischemiccaridomyopathy Examination: Device type: ICD Legal Operations Manager: Medtronic Mode: VVI LRL/URL: 40/- bpm Thresholds, [...] disease documented in this encounter Care Teams Internal Consultant Relationship Specialty Start Date End Date Ezra Denney NP [address] [facility] [place] [address] PCP - General Family Medicine 07/07/19 Seymour Ferris NP [address] [facility] [address] [facility] 100 [place] [address] [email or web address] Historical LMR Provider 02/20/1705/12/21 Tony Miranda MD 101 [facility] 100 [place] [address] [email or web address] Historical LMR Provider 02/20/17 Keyla Melton PA Historical LMR Provider 02/20/17 05/12/21 Jamie Soto MD [address] [place] [address] [email or web address] Historical LMR Provider 02/20/17 Mamadou Loving DO [address] [place] [address] Historical LMR Provider 02/20/17 Roger Jorgensen NP [address] [place] [address] [address] [place] [address] Historical LMR Provider 02/20/17 2 Rinku Carrizales MD [address] [place] [address] [email or web address] Historical LMR Provider 02/20/17 documented as of this encounter Additional Source Comments The information contained in this document represents components of the legal health record. It is not the complete legal health record.[facility]
--- OUTSIDE RECORDS SUMMARY | 2025-05-04 09:47 | XMS_ITS | Encounter Summary ---
Author Organization [facility] Address [address] [place] [address] Phone Care Team Providers Care Stonework Supervisor Name Role Phone Mamadou Loving DO Primary Care Provider [phone] Seymour Ferris CHEMICAL EDUCATOR Unavailable Tony Miranda MD Unavailable Keyla Melton Unavailable [email or web address] Jamie Soto MD Unavailable [phone] Mamadou Loving DO Unavailable Roger Jorgensen CHEMICAL EDUCATOR Unavailable [phone] Rinku Carrizales MD Unavailable [phone] Ezra Denney NP Primary Care Provider + Encounter Details Date Type Department Care Team (Late st Contact Info) Description 12/02/2017 Procedure Pass [facility] Ct Scan - [facility] 30 [place] [address] Social History Tobacco Use Types Packs/Day Years [...] Procedure Pass [facility] [address] [place] [address] 04/18/2025 Procedure Pass [facility] [address] 3rd [facility], [address] [place] [address] 08/24/2025 11:15 AM EDT Appointment [facility] [address] [place] [address] Tony Sargent, DO [address] [place] [address] [place] [address] [email or web address] 10/18/2025 9:15 AM EDT Appointment [facility] [address]rd [place] [address] Tony Sargent, DO [address] [place] [address] [place] [address] 10/31/2025 9:45 AM EDT Office Visit [facility] [address], [address] [place] [address] Tony Sargent, DO [address] [place] [address] documented as of this encounter Visit Diagnoses Not on filedocumented in this encounter Care Teams Stonework Supervisor Relationship Specialty Start Date End Date Mamadou Loving DO [address] [place] [address] PCP - General 02/20/17 07/06/19 Ezra Denney, NACHO [address] [place] [address] PCP - General Family Medicine 07/07/19 Seymour Ferris, NACHO 101 [facility] 100 [place] [address] [email or web address] Historical LMR Provider 02/20/1705/12/21 Tony Miranda MD 101 [facility] 100 [place] [address] [email or web address] Historical LMR Provider 02/20/17 Keyla Melton PA Historical LMR Provider 02/20/17 05/12/21 Jamie Soto MD [address] [place] [address] [email or web address] Historical LMR Provider 02/20/17 Mamadou Loving DO [address] [place] [address] Historical LMR Provider 02/20/17 Roger Jorgensen NP [address] [place] [address] [address] Historical LMR Provider 02/20/17 2 Rinku Carrizales MD [address] [place] [address] [email or web address] Historical LMR Provider 02/20/17 documented as of this encounter Additional Source Comments The information contained in this document represents components of the legal health record. It is not the complete legal health record.[facility]
--- OUTSIDE RECORDS SUMMARY | 2025-05-04 09:47 | XMS_ITS | Encounter Summary ---
Author Organization [facility] Address [address] [facility] [address] [place] [address] Phone Care Team Providers Care Track Dresser Name Role Phone Tony Miranda MD Unavailable [phone] Jamie Soto MD Unavailable [phone] Rinku Carrizales MD Unavailable [phone] Ezra Denney NECKTIE STITCHER Primary Care Provider + Reason for Referral * MRI/CAT Scan - Closed Specialty Diagnoses / Procedures Referred By Navneet t Referred To Contact Radiology Diagnoses Chest pain on breathing Procedures NC Myocardial Perfusion Pharmacologic Stress Multiple NC Myocardial Perfusion Exercise Multiple Tony Sargent DO Phone: tel: fax: [email or web address] Referral ID Status Reason Start Date Expiration Date Visits Re quested Visits Authorized [id number] Closed 12/10/2023 1 1 Encounter Details Date Type Department Care Team (Latest Contact Info) Description 01/12/2024 Ancillary Orders [facility] 22 [facility] 3rd Floor, [address] [place], [place] [id number] Tony Sargent DO [address] [place] [address] [address] [place] [address] [email or web address] Chest pain on breathing (Primary Dx); [...] Procedure Pass [facility] [address] [place] [address] 04/18/2025 Procedure Pass [facility] [address] [place] [address], [address] [place] [address] 08/24/2025 11:15 AM EDT Appointment [facility] [address] [place] [address] Tony Sargent DO 22 [facility] [address] [place] [address] 10/18/2025 9:15 AM EDT Appointment [facility] [address] [place] [address] Tony Sargent DO 22 [facility] [address] [place] [address] [email or web address] 10/31/2025 9:45 AM EDT Office Visit [facility] 22 [facility] 3rd Floor, [address] [place] [address] Tony Sargent, 22 [facility] [address] [place] [address] [email or web address] documented as of this encounter Results * NC Myocardial Perfusion Pharmacologic Stress Multiple (01/12/2024 1:42 PM EDT) [facility] Max Predicted Heart Rate 145 bpm Stress/rest [...] in SPECT format, reconstructed tomographically and compared [id number] in short axis, horizontal long axis and [...] hyperlipidemia documented in this encounter Care Teams Track Dresser Relationship Specialty Start Date End Date Ezra Denney NP [facility] [place] [address] PCP - General Family Medicine 07/07/19 Tony Miranda MD [email or web address] Historical LMR Provider 02/20/17 Jamie Soto MD [address] [place] [address] [email or web address] Historical LMR Provider 02/20/17 Rinku Carrizales MD [address] [place] [address] [email or web address] Historical LMR Provider 02/20/17 documented as of this encounter Additional Source Comments The information contained in this document represents components of the legal health record. It is not the complete legal health record.[facility]
--- OUTSIDE RECORDS SUMMARY | 2025-05-04 09:48 | XMS_ITS | Clinical Summary ---
Author Organization [facility] Address [address] [place] [address] Care Team Providers Care Registration Rep Name Role Phone Mamadou Loving Primary Care Provider [phone] Zackary Martinez MD Unavailable Allergies Active Allergy [...] series) 2023 Influenza Vaccine 12/03/2024 COVID-19 Vaccine (1 - 2024-2 6 season) 2025 Hepatitis B Vaccines Aged Out No long er eligible based on patient's age to complete this topic Medical Devices Implanted Type Area Stockkeeper Device Identifier Shelf Expiration Date Model / Serial / Lot Afx2 Bifurcated Endograft Implanted:Qty: 1 on 04/11/2017 by Marco Lopez MD at [facility] [employer] 02/05/2018 [id number] / [id number] / Description:CAPPED PRICING $ 14,500.00 Afx Arteaga Proximal Endograft Implanted:Qty: 1 on 04/11/2017 by Marco Lopez MD at [facility] [employer] 01/28/2020 [id number]/[id number] 20V / [id number] / Description:CAPPED PRICING $ 14,500.00. THIS ITEM NOT CHARGEABLE. 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 - [id number] Implanted:Qty: 1 on 04/11/2017 by Marco Lopez MD at [facility] [employer] S17-45 / / [id number] Insurance MEDICARE PART A & [facility] Advance Directives * Full Code (Latest Code Status on File) Date Activated Date Inactivated Comments 04/11/2017 1:01 PM * Full Code Date Activated Date Inactivated Comments 04/11/2017 7:06 AM 04/11/2017 1:01 PM Care Teams Registration Rep Relationship Specialty Start Date End Date Mamadou Loving [address] [place] [address] [place] [address] PCP - General Medicine Hospitalist 03/26/17 Zackary Martinez MD [address] [place] [address] [place] [address] Cardiovascular Disease 04/03/17
--- OUTSIDE RECORDS SUMMARY | 2025-05-04 09:48 | XMS_ITS | Encounter Summary ---
Author Organization [facility] Address [address] [place] [address] [address] [place] [address] Phone Care Team Providers Care Rn Er Name Role Phone Mamadou Loving DO Primary Care Provider [phone] Seymour Ferris WAREHOUSE SELECTOR Unavailable Tony Miranda MD Unavailable Keyla Melton Unavailable [email or web address] Jamie Soto MD Unavailable Mamadou Loving DO Unavailable [phone] Roger Jorgensen WAREHOUSE SELECTOR Unavailable Rinku Carrizales MD Unavailable [phone] Ezra Denney NP Primary Care Provider + Encounter Details Date Type Department Care Team (Late st Contact Info) Description 09/04/2018 Procedure Pass [facility] Attendant 55 [facility], Floor 9, [address] [place] [address] Social History Tobacco Use Types [...] Procedure Pass [facility] [address] [place] [address] 04/18/2025 Procedure Pass [facility] [address] [place] [address], [address] [place] [address] 08/24/2025 11:15 AM EDT Appointment [facility] [address] [place] [address] Tony Sargent [address] [address] 10/18/2025 9:15 AM EDT Appointment [facility] [address] [place] [address] Tony Sargent DO [address] [place] [address] 10/31/2025 9:45 AM EDT Office Visit [facility] [address] [place] [address], [address] [place] [address] Tony Sargent DO [address] [place] [address] documented as of this encounter Visit Diagnoses Not on filedocumented in this encounter Care Teams Rn Er Relationship Specialty Start Date End Date Mamadou Loving DO [address] [place] [address] PCP - General 02/20/17 07/06/19 Ezra Denney NP [facility] [place] [address] PCP - General Family Medicine 07/07/19 Seymour Ferris NP 101 [facility] 100 [place] [address] [email or web address] Historical LMR Provider 02/20/1705/12/21 Tony Miranda MD 101 [facility] 100 [place] [address] [email or web address] Historical LMR Provider 02/20/17 Keyla Melton PA Historical LMR Provider 02/20/17 05/12/21 Jamie Soto MD [address] [place] [address] [email or web address] Historical LMR Provider 02/20/17 Mamadou Loving DO [address] [place] [address] Historical LMR Provider 02/20/17 Roger Jorgensen NP [address] [place] [address] [address] Historical LMR Provider 02/20/17 2 Rinku Carrizales MD [address] [place] [address] [email or web address] Historical LMR Provider 02/20/17 documented as of this encounter Additional Source Comments The information contained in this document represents components of the legal health record. It is not the complete legal health record.[facility]
--- OUTSIDE RECORDS SUMMARY | 2025-05-04 09:48 | XMS_ITS | Encounter Summary ---
Author Organization [facility] Address [address] [place] [address] Phone Care Team Providers Care Preliminary School Psychologist Name Role Phone Tony Miranda MD Unavailable Jamie Soto MD Unavailable [phone] Rinku Carrizales MD Unavailable [phone] Ezra Denney REMOTE SENSING ADVISOR Primary Care Provider + Encounter Details Date Type Department Care Team (Late st Contact Info) Description 08/12/2022 Procedure Pass [facility] Non-Invasive Cardiology [address] [place] [address] Social History Tobacco Use Types Packs/Day Years [...] Procedure Pass [facility] [address] [place] [address] 04/18/2025 [facility] [address] [place] [address], [address] [place] [address] 08/24/2025 11:15 AM EDT Appointment [facility] [address] [place] [address] Tony Sargent, DO 22 [facility] [address] [place] [address] 10/18/2025 9:15 AM EDT Appointment [facility] [address] [place] [address] Tony Sargent, DO [address] [place] [address] 10/31/2025 9:45 AM EDT [facility] [address] [place] [address], [address] [place] [address] Tony Sargent, DO [address] [place] [address] [place] [address] documented as of this encounter Visit Diagnoses Not on filedocumented in this encounter Care Teams Preliminary School Psychologist Relationship Specialty Start Date End Date Ezra Denney NP [address] [facility] [place] [address] PCP - General Family Medicine 07/07/19 Tony Miranda MD [email or web address] Historical LMR Provider 02/20/17 Jamie Soto MD [address] [place] [address], [address] [place] [address] Historical LMR Provider 02/20/17 Rinku Carrizales MD [address] [address] [email or web address] Historical LMR Provider 02/20/17 documented as of this encounter Additional Source Comments The information contained in this document represents components of the legal health record. It is not the complete legal health record.[facility]
--- OUTSIDE RECORDS SUMMARY | 2025-05-04 09:48 | XMS_ITS | Encounter Summary ---
Author Organization [facility] Address [address] [place] [address] Phone Care Team Providers Care Barometers Calibrator Name Role Phone Seymour Ferris Renay FORGE HAND Unavailable Tony Miranda MD Unavailable Keyla Melton Unavailable [email or web address] Jamie Soto MD Unavailable Mamadou Loving DO Unavailable Roger Jorgensen FORGE HAND Unavailable [phone] Rinku Carrizales MD Unavailable [phone] Ezra Denney FORGE HAND Primary Care Provider + Encounter Details Date Type Department Care Team (Late st Contact Info) Description 05/10/2021 Procedure Pass [facility] Non-Invasive Cardiology [address] [place] [address] Social History Tobacco Use Types [...] Procedure Pass [facility] [address] [place] [address] 04/18/2025 Procedure Pass [facility] [address], [address] [place] [address] 08/24/2025 11:15 AM EDT Appointment [facility] [address] [place] [address] Tony Sargent, DO [address] [place] [address] [place] [address] 10/18/2025 9:15 AM EDT Appointment [facility] [address] [place] [address] Tony Sargent, DO [address] [place] [address] [place] [address] 10/31/2025 9:45 AM EDT Office Visit [facility] [address], [address] [place] [address] Tony Sargent, DO [address] [address] documented as of this encounter Visit Diagnoses Not on filedocumented in this encounter Care Teams Barometers Calibrator Relationship Specialty Start Date End Date Ezra Denney NP [address] [facility] [place] [address] PCP - General Family Medicine 07/07/19 Seymour Ferris NP [address] [place] [address] [email or web address] Historical LMR Provider 02/20/1705/12/21 Tony Miranda MD 101 [facility] 100 [place] [address] [email or web address] Historical LMR Provider 02/20/17 Keyla Melton PA [email or web address] Historical LMR Provider 02/20/17 05/12/21 Jamie Soto MD [address] [address] [email or web address] Historical LMR Provider 02/20/17 Mamadou Loving DO [address] [place] [address] Historical LMR Provider 02/20/17 Roger Jorgensen NP [address] [place] [address] [address] [place] [address] Historical LMR Provider 02/20/17 2 Rinku Carrizales MD [address] [place] [address] [email or web address] Historical LMR Provider 02/20/17 documented as of this encounter Additional Source Comments The information contained in this document represents components of the legal health record. It is not the complete legal health record.[facility]
--- OUTSIDE RECORDS SUMMARY | 2025-05-04 09:48 | XMS_ITS | Encounter Summary ---
Author Organization [facility] Address [address] [place] [address] Phone Care Team Providers Care Manager Of Transportation Name Role Phone Mamadou Loving DO Primary Care Provider [phone] Seymour Ferris FIREWALL SECURITY ENGINEER Unavailable [phone] Tony Miranda MD Unavailable Keyla Melton Unavailable [email or web address] Jamie Soto MD Unavailable [phone] Mamadou Loving DO Unavailable [phone] Roger Jorgensen FIREWALL SECURITY ENGINEER Unavailable Rinku Carrizales MD Unavailable [phone] Ezra Denney NP Primary Care Provider + Encounter Details Date Type Department Care Team (Late st Contact Info) Description 09/02/2018 Procedure Pass [facility]IVE [facility]PT [address] [place] [address] Social History Tobacco Use Types [...] Procedure Pass [facility] [address] [place] [address] 04/18/2025 Procedure Pass [facility] [address], [address] [place] [address] 08/24/2025 11:15 AM EDT Appointment [facility] [address] [place] [address] Tony Sargent, DO [address] [place] [address] 10/18/2025 9:15 AM EDT Appointment [facility] [address] [place] [address] Tony Sargent DO [address] [place] [address] [place] [address] 10/31/2025 9:45 AM EDT Office Visit [facility] [address], [address] [place] [address] Tony Sargent DO [address] [address] documented as of this encounter Visit Diagnoses Not on filedocumented in this encounter Care Teams Manager Of Transportation Relationship Specialty Start Date End Date Mamadou Loving DO [address] [place] [address] PCP - General 02/20/17 07/06/19 Ezra Denney, NACHO [address] [facility] [place] [address] PCP - General Family Medicine 07/07/19 Seymour Ferris, NACHO 101 [facility] 100 [place] [address] [email or web address] Historical LMR Provider 02/20/1705/12/21 Tony Miranda MD 101 [facility] 100 [place] [address] [email or web address] Historical LMR Provider 02/20/17 Keyla Melton PA [email or web address] Historical LMR Provider 02/20/17 05/12/21 Jamie Soto MD [address] [place] [address] [email or web address] Historical LMR Provider 02/20/17 Mamadou Loving DO [address] [place] [address] Historical LMR Provider 02/20/17 Roger Jorgensen NP [address] [place] [address] [address] Historical LMR Provider 02/20/17 2 Rinku Carrizales MD [address] [address] [email or web address] Historical LMR Provider 02/20/17 documented as of this encounter Additional Source Comments The information contained in this document represents components of the legal health record. It is not the complete legal health record.[facility]
--- OUTSIDE RECORDS SUMMARY | 2025-05-04 09:48 | XMS_ITS | Encounter Summary ---
Author Organization [facility] Address [address] [place] [address] Phone Care Team Providers Care Senior National Account Manager Name Role Phone Tony Miranda MD Unavailable Jamie Soto MD Unavailable Rinku Carrizales MD Unavailable [phone] Ezra Denney JUMPBASTING MACHINE OPERATOR Primary Care Provider + Encounter Details Date Type Department Care Team (Latest Contact Info) Description 08/12/2022 Ancillary Orders [facility] Non-Invasive Cardiology 22 [place], [place] [phone] Arthur Casarez MD [address] [place], [place] [address] [email or web address] Ischemic cardiomyopathy Social History Tobacco Use [...] Procedure Pass [facility] [address] [place] [address] 04/18/2025 [facility] [address] 3rd [facility], [address] [place] [address] 08/24/2025 11:15 AM EDT Appointment [facility] [address] [place] [address] Tony Sargent DO [address] [place] [address] [place] [address] [email or web address] 10/18/2025 9:15 AM EDT Appointment [facility] [address] [place] [address] Tony Sargent [address] [place] [address] [email or web address] 10/31/2025 9:45 AM EDT Office Visit [facility] [address] [place] [address], [address] [place] [address] Tony Sargent DO [address] [place] [address] [place] [address] documented as of this encounter Results * DEVICE CHECK: ICD IN-HOME INTERROGATION PLUS HFM IMPEDANCE (08/12/2022 10:47 AM EDT) Narrative Tony Sargent DO - 08/13/2022 11:21 AM EDT Images from the original result were not included. Reason for appointment: Remote ICD interrogation HPI: Routine 3 month remote ICD interrogation. No device related complaints. Indication for device: Ischemic cardiomyopathy Examination: Device type: ICD Civilian Technician: Medtronic Mode: VVI LRL/URL: 40/- bpm Thresholds, impedances, and sensing stable. High V rates: 0 Ventricular pacin.1% Battery: 8 yrs Thoracic impedance: Recent low impedance, seen in office by Patrycia on 08/05, patient endorsed only occasional SOB, [...] device: Ischemic cardiomyopathy Examination: Device type: ICD Civilian Technician: Medtronic Mode: VVI LRL/URL: 40/- bpm Thresholds, impedances, and sensing stable. High V rates: 0 Ventricular pacin.1% Battery: 8 yrs Thoracic impedance: Recent low impedance, seen in office by Patryprabha on08/05, patient endorsed only occasional SOB, will review w/ Patrycia. Additional comments: Device functioning appropriately. Normal device function. Patient to follow-up for continued monitoringevery 3 months. Report prepared by Iker Chan RN Arthur Casarez MD CV CARDIAC SERVICES ORDERABL ES Final Result documented in this encounter Visit Diagnoses Diagnosis Ischemic cardiomyopathy Other specified forms of chronic ischemic heart disease Ischemic cardiomyopathy Other specified forms of chronic ischemic heart disease documented in this encounter Care Teams Senior National Account Manager Relationship Specialty Start Date End Date Ezra Denney NP [address] [facility] [place] [address] PCP - General Family Medicine 07/07/19 Tony Miranda MD [email or web address] Genome [email or web address] ([email or web address] Historical LMR Provider 02/20/17 Jamie Soto MD [address] [place] [address], [address] [place] [address] [email or web address] Historical LMR Provider 02/20/17 Rinku Carrizales MD [address] [place] [address] [email or web address] Historical LMR Provider 02/20/17 documented as of this encounter Additional Source Comments The information contained in this document represents components of the legal health record. It is not the complete legal health record.[facility]
--- OUTSIDE RECORDS SUMMARY | 2025-05-04 09:48 | XMS_ITS | Encounter Summary ---
Author Organization [facility] Address [address] [place] [address] [address] [place] [address] Phone Care Team Providers Care Ship Propeller Finisher Name Role Phone Mamadou Loving DO Primary Care Provider [phone] Seymour Ferris TRANSMISSION SUPERVISOR Unavailable Tony Miranda MD Unavailable Keyla Melton Unavailable [email or web address] Jamie Soto MD Unavailable [phone] Mamadou Loving DO Unavailable Roger Jorgensen TRANSMISSION SUPERVISOR Unavailable Rinku Carrizales MD Unavailable [phone] Ezra Denney NP Primary Care Provider + Encounter Details Date Type Department Care Team (Late st Contact Info) Description 11/12/2018 Ancillary Orders [facility] [address] [facility], 4th Floor, [address] [place] [address] Rinku Smith MD [address] [place] [phone] [email or web address] PAD (peripheral artery disease) Social History [...] Procedure Pass [facility] [address] [place] [address] 04/18/2025 Procedure Pass [facility] [address] [facility], [address] [place] [address] 08/24/2025 11:15 AM EDT Appointment [facility] [address] [place] [address] Tony Sargent DO [address] [place] [address] [place] [address] [email or web address] 10/18/2025 9:15 AM EDT Appointment [facility] [address] [place] [address] Tony Sargent DO [address] [place] [address] [place] [address] 10/31/2025 9:45 AM EDT Office Visit [facility] [address] [facility], [address] [place] [address] Tony Sargent DO [address] [place] [address] [place] [address] Scheduled Orders Name Type Priority Associated Diagnoses Orde r Schedule US Lower Extremity Arteries Duplex (Left) Vascular Routine PAD (peripheral artery disease) 1 Occurrences starting 11/12/2018 until 02/12/2019 documented as of this encounter Visit Diagnoses Diagnosis PAD (peripheral artery disease) Unspecified peripheral vascular disease documented in this encounter Care Teams Ship Propeller Finisher Relationship Specialty Start Date End Date Mamadou Loving DO [address] [place] [address] PCP - General 02/20/17 07/06/19 Ezra [place], NACHO [address] [facility] [place] [address] PCP - General Family Medicine 07/07/19 Seymour Ferris, NACHO [address] [address] [email or web address] Historical LMR Provider 02/20/1705/12/21 Tony Miranda MD 101 [facility] 100 [place] [address] [email or web address] Historical LMR Provider 02/20/17 Keyla Melton PA Historical LMR Provider 02/20/17 05/12/21 Jamie Soto MD [address] [place] [address], [address] [address] [email or web address] Historical LMR Provider 02/20/17 Mamadou Loving DO [address] [place] [address] Historical LMR Provider 02/20/17 Roger Jorgensen, NACHO [address] [place] [phone] Historical LMR Provider 02/20/17 2 Rinku Carrizales MD [address] [address] [email or web address] Historical LMR Provider 02/20/17 documented as of this encounter Additional Source Comments The information contained in this document represents components of the legal health record. It is not the complete legal health record.[facility]
--- OUTSIDE RECORDS SUMMARY | 2025-05-04 09:48 | XMS_ITS | Encounter Summary ---
Author Organization [facility] Address [address] [place] [address] [address] [place] [address] Phone Care Team Providers Care Oven Equipment Repairer Name Role Phone Seymour Ferris Renay VIOLIN TUTOR Unavailable Tony Miranda MD Unavailable Keyla Melton Unavailable [email or web address] Jamie Soto MD Unavailable Mamadou Loving DO Unavailable Roger Jorgensen VIOLIN TUTOR Unavailable [phone] Rinku Carrizales MD Unavailable [phone] Ezra Denney VIOLIN TUTOR Primary Care Provider + Encounter Details Date Type Department Care Team (Late st Contact Info) Description 03/14/2020 Procedure Pass [facility], 5th Floor, [address] [place] [address] Social History Tobacco Use Types Packs/Day Years [...] Procedure Pass [facility] [address] [place] [address] 04/18/2025 Procedure Pass [facility] [address] [place] [address] [place] [address], [address] [place] [address] 08/24/2025 11:15 AM EDT Appointment [facility] [address] [place] [address] Tony Sargent, DO [address] [place] [address] 10/18/2025 9:15 AM EDT Appointment [facility] [address] [place] [address] [place] [address] Tony Sargent, DO 22 [facility] [address] [place] [address] 10/31/2025 9:45 AM EDT Office Visit [facility] [address] [place] [address], [address] [place] [address] Tony Sargent DO [address] [address] documented as of this encounter Visit Diagnoses Not on filedocumented in this encounter Care Teams Oven Equipment Repairer Relationship Specialty Start Date End Date Ezra Denney NP [address] [facility] [place] [address] PCP - General Family Medicine 07/07/19 Seymour Ferris NP [address] [place] [address] [email or web address] Historical LMR Provider 02/20/1705/12/21 Tony Miranda MD 101 [facility] 100 [place] [address] [email or web address] Historical LMR Provider 02/20/17 Keyla Melton PA [email or web address] Historical LMR Provider 02/20/17 05/12/21 Jamie Soto MD [address] [address] [email or web address] Historical LMR Provider 02/20/17 Mamadou Loving DO [address] [place] [address] Historical LMR Provider 02/20/17 Roger Jorgensen NP [address] [place] [address] [address] [place] [phone] Historical LMR Provider 02/20/17 2 Rinku Carrizales MD [address] [place] [address] [email or web address] Historical LMR Provider 02/20/17 documented as of this encounter Additional Source Comments The information contained in this document represents components of the legal health record. It is not the complete legal health record.[facility]
--- OUTSIDE RECORDS SUMMARY | 2025-05-04 09:48 | XMS_ITS | Encounter Summary ---
Author Organization [facility] [place] [facility] Address [address] [place] [address] [address] [place] [address] Phone Care Team Providers Care Chicken Tender Name Role Phone Tony Miranda MD Unavailable [phone] Jamie Soto MD Unavailable Rinku Carrizales MD Unavailable Ezra Denney LABORER [employer] Primary Care Provider + Reason for Visit * Reason Comments Medication Refill Encounter Details Date Type Department Care Team (Late st Contact Info) Description 08/29/2024 Refill [facility] [address] [facility], 7th Floor, [address] [place] [address] Jordana Webb MD [address] [address] [email or web address] Medication Refill Social History Tobacco Use Types [...] visit: 12/03/2023 Jordana Webb MD - Neurology [facility] > Requested f/u: Return in about 6 months (around 06/04/2024). Upcoming visit: None ACTIONS TAKEN BY Abimbola Oneil - Refill protocol not met - Asked bowling or skating front desk clerk staff to schedule appointment. Antiepileptic With Lab [...] Procedure Pass [facility] [address] [place] [address] 04/18/2025 Procedure Pass [facility] [address] [place] [address], [address] [place] [address] 08/24/2025 11:15 AM EDT Appointment [facility] [address] [place] [address] Tony Sargent, [address] [address] 10/18/2025 9:15 AM EDT Appointment [facility] [address] [place] [address] Tony Sargent DO [address] [place] [address] 10/31/2025 9:45 AM EDT Office Visit [facility] [address], [address] [address] Tony Sargent DO [address] [place] [address] documented as of this encounter Visit Diagnoses Diagnosis Autoimmune encephalitis- Primary documented in this encounter Care Teams Chicken Tender Relationship Specialty Start Date End Date Ezra Denney NP [address] [facility] [place] [address] PCP - General Family Medicine 07/07/19 Tony Miranda MD [email or web address] Historical LMR Provider 02/20/17 Jamie Soto MD [address] [place] [address] [email or web address] Historical LMR Provider 02/20/17 Rinku Carrizales MD [address] [place] [address] [email or web address] Historical LMR Provider 02/20/17 documented as of this encounter Additional Source Comments The information contained in this document represents components of the legal health record. It is not the complete legal health record.[facility]
--- OUTSIDE RECORDS SUMMARY | 2025-05-04 09:48 | XMS_ITS | Encounter Summary ---
Author Organization [facility] Address [address] [place] [address] Phone Care Team Providers Care Shirt Bander Name Role Phone Seymour Ferris Renay INSTRUMENTATION INSTRUCTOR Unavailable Tony Miranda MD Unavailable Keyla Melton Unavailable [email or web address] Jamie Soto MD Unavailable [phone] Mamadou Loving DO Unavailable Roger Jorgensen INSTRUMENTATION INSTRUCTOR Unavailable Rinku Carrizales MD Unavailable [phone] Ezra Denney NP Primary Care Provider + Encounter Details Date Type Department Care Team (Late st Contact Info) Description 01/24/2021 Procedure Pass [facility] [address] [place] [address] Social History Tobacco Use Types [...] Procedure Pass [facility] [address] [place] [address] 04/18/2025 Procedure Pass [facility] [address], [address] [place] [address] 08/24/2025 11:15 AM EDT Appointment [facility] [address] [place] [address] Tony Sargent, DO [address] [place] [address] [place] [address] 10/18/2025 9:15 AM EDT Appointment [facility] [address] [place] [address] Tony Sargent, DO [address] [place] [address] [place] [address] 10/31/2025 9:45 AM EDT Office Visit [facility] [address], [address] [place] [address] Tony Sargent, DO [address] [address] documented as of this encounter Visit Diagnoses Not on filedocumented in this encounter Care Teams Shirt Bander Relationship Specialty Start Date End Date Ezra Denney NP [address] [facility] [place] [address] PCP - General Family Medicine 07/07/19 Seymour Ferris NP [address] [place] [address] [email or web address] Historical LMR Provider 02/20/1705/12/21 Tony Miranda MD [address] [facility] 100 [place] [address] [email or web address] Historical LMR Provider 02/20/17 Keyla Melton PA [email or web address] Historical LMR Provider 02/20/17 05/12/21 Jamie Soto MD [address] [address] [email or web address] Historical LMR Provider 02/20/17 Mamadou Loving DO [address] [place] [address] Historical LMR Provider 02/20/17 Roger Jorgensen NP [address] [place] [address] [address] [place] [address] Historical LMR Provider 02/20/17 2 Rinku Carrizales MD [address] [place] [address] [email or web address] Historical LMR Provider 02/20/17 documented as of this encounter Additional Source Comments The information contained in this document represents components of the legal health record. It is not the complete legal health record.[facility]
--- OUTSIDE RECORDS SUMMARY | 2025-05-04 09:48 | XMS_ITS | Encounter Summary ---
Author Organization [facility] Address [address] [place] [address] [address] [place] [address] Phone Care Team Providers Care Lube Technician Name Role Phone Mamadou Loving DO Primary Care Provider [phone] Seymour Ferris PRESSER HAND Unavailable Tony Miranda MD Unavailable Keyla Melton Unavailable [email or web address] Jamie Soto MD Unavailable Mamadou Loving DO Unavailable [phone] Roger Jorgensen PRESSER HAND Unavailable Rinku Carrizales MD Unavailable [phone] Ezra Denney NP Primary Care Provider + Encounter Details Date Type Department Care Team (Late st Contact Info) Description 09/04/2018 Procedure Pass [facility] [address] [facility], Floor 9, [address] [place] [address] Social History Tobacco Use Types [...] Procedure Pass [facility] [address] [place] [address] 04/18/2025 Procedure Pass [facility] [address] [place] [address], [address] [place] [address] 08/24/2025 11:15 AM EDT Appointment [facility] [address] [place] [address] Tony Sargent [address] [address] 10/18/2025 9:15 AM EDT Appointment [facility] [address] [place] [address] Tony Sargent DO [address] [place] [address] 10/31/2025 9:45 AM EDT Office Visit [facility] [address] [place] [address], [address] [place] [address] Tony Sargent DO [address] [place] [address] documented as of this encounter Visit Diagnoses Not on filedocumented in this encounter Care Teams Lube Technician Relationship Specialty Start Date End Date Mamadou Loving DO [address] [place] [address] PCP - General 02/20/17 07/06/19 Ezra Denney NP [facility] [place] [address] PCP - General Family Medicine 07/07/19 Seymour Ferris NP [address] [facility] 100 [place] [address] [email or web address] Historical LMR Provider 02/20/1705/12/21 Tony Miranda MD [address] [facility] 100 [place] [address] [email or web address] Historical LMR Provider 02/20/17 Keyla Melton PA Historical LMR Provider 02/20/17 05/12/21 Jamie Soto MD [address] [place] [address] [email or web address] Historical LMR Provider 02/20/17 Mamadou Loving DO [address] [place] [address] Historical LMR Provider 02/20/17 Roger Jorgensen NP [address] [place] [address] [address] Historical LMR Provider 02/20/17 2 Rinku Carrizales MD [address] [place] [address] [email or web address] Historical LMR Provider 02/20/17 documented as of this encounter Additional Source Comments The information contained in this document represents components of the legal health record. It is not the complete legal health record.[facility]
--- OUTSIDE RECORDS SUMMARY | 2025-05-04 09:48 | XMS_ITS | Encounter Summary ---
Author Organization [facility] Address [address] [place] [address] Phone Care Team Providers Care Acid Bath Mixer Name Role Phone Tony Miranda MD Unavailable Jamie Soto MD Unavailable Rinku Carrizales MD Unavailable [phone] Ezra Denney DATA CONVERSION ANALYST Primary Care Provider + Encounter Details Date Type Department Care Team (Late st Contact Info) Description 12/17/2021 Procedure Pass [facility] [address] [place] [address] Social History Tobacco Use Types Packs/Day Years [...] st Contact Info) Description 08/24/2024 Procedure Pass [facility] [address] [place] [address] 04/18/2025 [facility] [address]rd [facility], [address] [place] [address] 08/24/2025 11:15 AM EDT Appointment [facility] [address] [place] [address] Tony Sargent, DO [address] [facility] [address] [place] [address] 10/18/2025 9:15 AM EDT Appointment [facility] [address] [place] [address] Tony Sargent, DO [address] [place] [address] [place] [address] 10/31/2025 9:45 AM EDT [facility] [address] [place] [address], [address] [place] [address] Tony Sargent, DO [address] [facility] [address] [place] [address] documented as of this encounter Visit Diagnoses Not on filedocumented in this encounter Care Teams Acid Bath Mixer Relationship Specialty Start Date End Date Ezra Denney NP [address] [facility] [place] [address] PCP - General Family Medicine 07/07/19 Tony Miranda MD [email or web address] Historical LMR Provider 02/20/17 Jamie Soto MD [address] [place] [address], [address] [place] [address] Historical LMR Provider 02/20/17 Rinku Carrizales MD [address] [address] [email or web address] Historical LMR Provider 02/20/17 documented as of this encounter Additional Source Comments The information contained in this document represents components of the legal health record. It is not the complete legal health record.[facility]
--- OUTSIDE RECORDS SUMMARY | 2025-05-04 09:48 | XMS_ITS | Encounter Summary ---
Author Organization [facility] Address [facility] [address] [place] [address] Phone Care Team Providers Care Skimmer Name Role Phone Tony Miranda MD Unavailable Jamie Soto MD Unavailable Rinku Carrizales MD Unavailable [phone] Ezra Denney VEHICLE MECHANIC Primary Care Provider + Encounter Details Date Type Department Care Team (Late st Contact Info) Description 08/12/2022 Ancillary Orders [facility] [address] [facility] 3rd Floor, [address] [place] [address] Arthur Casarez MD [address] [place] [address] [email or web address] Social History Tobacco Use Types Packs/Day Years [...] Procedure Pass [facility] [address] [place] [address] 04/18/2025 Procedure Pass [facility] [address] [facility], [address] [place] [address] 08/24/2025 11:15 AM EDT Appointment [facility] [address] [place] [address] Tony Sargent, DO [address] [facility] [address] [place] [address] 10/18/2025 9:15 AM EDT Appointment [facility] [address] [place] [address] Tony Sargent, DO [address] [facility] [address] [place] [address] 10/31/2025 9:45 AM EDT Office Visit [facility] [address], [address] [place] [address] Tony Sargent, DO [address] [facility] [address] [place] [address] documented as of this encounter Visit Diagnoses Not on filedocumented in this encounter Care Teams Skimmer Relationship Specialty Start Date End Date Ezra Denney NP [address] [facility] [place] [address] PCP - General Family Medicine 07/07/19 Tony Miranda MD [email or web address] Historical LMR Provider 02/20/17 Jamie Soto MD [address] [place] [address] [email or web address] Historical LMR Provider 02/20/17 Rinku Carrizales MD [address] [place] [address] [email or web address] Historical LMR Provider 02/20/17 documented as of this encounter Additional Source Comments The information contained in this document represents components of the legal health record. It is not the complete legal health record.[facility]
[2025-05-04 14:28] LABS: INTERNATIONAL NORM RATIO 1.1 (0.9-1.1); Prothrombin Time 13.2 SEC (11.2-13.5)
[2025-05-04 15:02] LABS: Ferritin 19 ng/mL (20-250)
[2025-05-05 05:29] LABS: HBS Num1 1.45 mIU/mL (0-7.99); HBc Num1 0.04 S/CO (0.00-0.79); HBsAGNum1 0.35 S/CO (0.00-0.99); Hepatitis A Antibody IgM 0.11 Index (0-0.79); Hepatitis B Surface Antigen Negative (Negative); ~HepC Num1 0.03 S/CO (0.00-0.79); ~Hepatitis A Antibody IgM Nonreactive (Nonreactive); ~Hepatitis B Surface Antibody NONREACTIVE (Nonreactive); ~Hepatitis C Antibody Nonreactive (Nonreactive)
[2025-05-06 05:19] LABS: ~Hepatitis A Antibody IgG 0.15 S/CO (0.00-0.99)
== END 2025-05-04 09:27 | disposition home or self-care (01) ==
LOC: HO.HMGCLDS 09:26
PROVIDERS: Absent Provider Nurse Practitioner Family; PCP Nurse Practitioner Family; Visit Provider Nurse Practitioner Family
DX: F10.11 Alcohol abuse, in remission (principal)
CPT/HCPCS: 36415; 82728; 85610; 86704; 86706; 86708; 86709; 86803; 87340